=== PATIENT | male | born 1965 | race American Indian/Alaskan Native ===

== ENCOUNTER 2017-09-01 17:21 | Inpatient (IN) | payer OTHER ==
[2017-09-01 19:22] LABS: Hematocrit 32.3 % (35.5-45.6); Hemoglobin 10.9 gm/dl (11.8-15.2); Mean Corpuscular HGB Conc 34 % (32-34); Mean Corpuscular Hemoglobin 28 pg (28-32); Mean Corpuscular Volume 83 fl (84-94); Platelet Count 217 K/mm3 (140-440); Red Blood Count 3.91 M/mm3 (3.65-5.03); Red Cell Distribution Width 15.6 % (13.2-15.2)
[2017-09-01 19:40] LABS: BUN/Creatinine Ratio 12; Blood Urea Nitrogen 12 mg/dL (9-20); Calcium 9.5 mg/dL (8.4-10.2); Hemolysis Index 11
[2017-09-01 20:09] LABS: Basophils % (Manual) 0 % (0.0-1.8); Eosinophils % (Manual) 0 % (0.0-4.3); Total Cells Counted 100
[2017-09-01 20:10] LABS: Anisocytosis 1+
[2017-09-01 20:11] LABS: Poikilocytosis 1+
--- NOTE | 2017-09-01 20:24 | XRay Report ---
FINAL REPORT PROCEDURE: XR CHEST ROUTINE 2V TECHNIQUE: PA and lateral chest radiographs were obtained. CPT 18538 HISTORY: sob COMPARISON: No prior studies are available for comparison. FINDINGS: Heart: Normal. Mediastinum/Vessels: Normal. Lungs/Pleural space: Irregular areas of consolidation are noted involving left lingula and right middle lobe. Minimal degree bilateral pleural effusions are noted. Mild degree consolidation is also noted involving right upper lobe.. Bony thorax: No acute osseous abnormality. Other: IMPRESSION: Bilateral consolidations consistent with pneumonia with minimal pleural effusions..
[2017-09-01] MEDS ORDERED: TYLENOL PO ONE (20:35)
[2017-09-01] MEDS ORDERED: TYLENOL ONE (20:38)
[2017-09-01] MEDS ORDERED: XOPENEX IH ONE (23:26)
[2017-09-01] MEDS ORDERED: LEVAQUIN 750MG/150ML 750 MG/150 ML BAG IV ONE (23:26)
[2017-09-01] MEDS ORDERED: NACL 0.9% 1000 ML 1,000 ML IV ONE (23:26)
[2017-09-01] MEDS ORDERED: NACL 0.9% 1000 ML 1,000 ML ONE (23:26)
--- NOTE | 2017-09-01 23:29 | Emergency Department Report ---
HPI - General Chief Complaint: Dyspnea/Respdistress Time Seen by Provider: 09/01/17 23:15 - HPI HPI: 52-year-old male presents to the emergency department with complaint of shortness of breath and some midsternal right-sided chest discomfort with inspiration that started earlier this afternoon and radiates towards the back. The patient was just discharged from the [facility] a few days ago after spending some time therefore bilateral pneumonia. He is on Bactrim and just finished a course of antifungal medication for oral thrush. He denies any past medical history other than this pneumonia. He does not smoke or use illicit drugs. His physicians are through the [facility]. He denies any leg swelling, nausea, vomiting or fever. ED Past Medical Hx - Past Medical History Previous Medical History?: No - Surgical History Past Surgical History?: No - Social History Smoking Status: Never Smoker Substance Use Type: None ED Review of Systems ROS: Stated complaint: SOB/CHEST PAIN Other details as noted in HPI Comment: All other systems reviewed and negative Constitutional: denies: chills, fever Eyes: denies: eye pain, eye discharge, vision change ENT: denies: ear pain, throat pain Respiratory: cough, shortness of breath Cardiovascular: chest pain. denies: edema Gastrointestinal: denies: abdominal pain, nausea, diarrhea Genitourinary: denies: urgency, dysuria Musculoskeletal: back pain. denies: joint swelling, arthralgia Skin: denies: rash, lesions Neurological: denies: headache, weakness, paresthesias Physical Exam - Physical Exam Vital Signs: Vital Signs 09/01/17 09/01/17 09/01/17 17:28 19:54 20:35 Temperature 98.7 F 102.4 F H 102.4 F H Pulse Rate 109 H 146 H Respiratory 20 20 Rate Blood Pressure 130/82 116/74 O2 Sat by Pulse 100 96 Oximetry Physical Exam: GENERAL: The patient is well-developed well-nourished. HENT: Normocephalic. Atraumatic. Patient has moist mucous membranes. EYES: Extraocular motions are intact. Pupils equal reactive to light bilaterally. NECK: Supple. Trachea is midline. CHEST/LUNGS: Bilateral rhonchi. There is tachypnea with accessory muscle use. There is some conversational dyspnea. There is respiratory distress noted. HEART/CARDIOVASCULAR: Regular. There is moderate tachycardia. There is no murmur. ABDOMEN: Abdomen is soft, nontender. Patient has normal bowel sounds. There is no abdominal distention. SKIN: Skin is hot but dry. NEURO: The patient is awake, alert, and oriented. The patient is cooperative. The patient has no focal neurologic deficits. MUSCULOSKELETAL: There is no tenderness or deformity. There is no limitation range of motion. There is no evidence of acute injury. ED Course Vital Signs 09/01/17 09/01/17 09/01/17 17:28 19:54 20:35 Temperature 98.7 F 102.4 F H 102.4 F H Pulse Rate 109 H 146 H Respiratory 20 20 Rate Blood Pressure 130/82 116/74 O2 Sat by Pulse 100 96 Oximetry - Central Line Placement Right IJ Consent Obtained: verbal consent Time Out Performed: Yes Patient Placed on Monitor/Pulse Ox: Yes Prep: mask, gown, gloves Central Line Prep: Chlorhexidine scrub Ultrasound Used for Placement: Yes Central Line Lumen Inserted: triple Bloods Obtained for Lab: Yes Central Line Position: good blood return, all ports aspirated, flus, sutured in place with nyl Dressing Applied: Tegaderm, sterile gauze/tape Post Procedure X-Ray: tip of catheter in good p Patient Tolerated Procedure: well, no complications Complications: none Additional Comments: A first attempt was made in the right groin for the femoral vein. However the patient's anatomy appeared skewed and despite getting venous blood with cannulation it was difficult to feed the guidewire. At this point I decided to do an IJ CVC. - Intubation Time Out Performed: Yes Sedative: Etomidate Mg Given: 10 (10 mg of etomidate and 40 mg of ketamine given) Paralytic: Rocuronium Mg Given: 100 Laryngoscope: other (glydescope) Size: 3 ET Tube Size: 7.5 Tube Secured Depth (cm): 23 Tube Secured Location: lips Tube Placement Confirmation: visualized tube passing t, equal breath sounds bilat, confirmation by capnometr Patient Tolerated Procedure: well Intubation Complications: none ED Medical Decision Making - Lab Data Result diagrams: 09/01/17 19:00 09/01/17 19:00 - EKG Data -: EKG Interpreted by Me EKG shows normal: sinus rhythm, axis, intervals, QRS complexes, ST-T waves Rate: tachycardia (120 bpm) - EKG Data When compared to previous EKG there are: previous EKG unavailable Interpretation: normal EKG (sinus tachycardia at 120 bpm) - Radiology Data Radiology results: image reviewed interpreted by me: Chest x-ray shows bilateral infiltrates and/or airspace disease concerning for pneumonia. The second chest x-ray, done around 6 AM, shows appropriate placement of ET tube status post intubation. The right IJ CVC appears to be in the superior vena cava - Medical Decision Making Patient presents with shortness of breath and some pain with respiration. Patient appeared in respiratory distress. He was given breathing treatments and we started titrating up the supplemental oxygen. We started off with nasal cannula and when that was not sufficient went to a Venturi mask and then a nonrebreather. Eventually we attempted to use a BiPAP but the patient could not tolerate the BiPAP machine. I think part of the issue was anxiety but the patient had borderline hypotension and could not get any appropriate sedation or anxiolytics. At this point, the patient still remained tachypneic with some respiratory distress and moderate tachycardia. I was concerned that if the patient did not tolerate the BiPAP and we did not intubate that he would tire out. We placed dopamine on the patient to get his blood pressure up so he could be given some sedation and we could successfully do RSI. Once the blood pressure got up to a systolic of 90-100, he was given some low-dose ketamine and etomidate and then given rocuronium and the patient was intubated using the glydescope successfully. As soon as this was completed, a right IJ CVC was placed. Patient developed a fever while he was in the emergency department. He has a lactic acidosis. He has a chest x-ray that shows bilateral pneumonia. He appears to have sepsis and septic shock with the hypotension. He has received multiple boluses of IV fluid resuscitation. Blood culture sent and he was started on antibiotics. The patient will be admitted to the ICU and was accepted for admission by the hospitalist, Dr. Parker. The patient had an elevated d-dimer and is awaiting a CT angiography of the chest to rule out a pulmonary embolism as the source of his symptoms. The hospitalist service will follow-up with the results and can start anticoagulation if necessary. - Differential Diagnosis PNA, Sepsis, NM, CHF, PE Critical Care Time: Yes Critical care time in (mins) excluding proc time.: 40 Critical care attestation.: If time is entered above; I have spent that time in minutes in the direct care of this critically ill patient, excluding procedure time. Critical care time spent on this patient to his initial evaluation, multiple re-evaluations, discussion with the patient and family, ordering and interpretations of labs and imaging, disposition planning and discussion with the admitting hospitalist. This does not include the time spent doing the intubation and central line procedures. Critical Care Time: 40 minutes ED Disposition Clinical Impression: Septic shock, Lactic acidosis Sepsis Qualifiers: Sepsis type: sepsis due to unspecified organism Qualified Code(s): A41.9 - Sepsis, unspecified organism Bilateral pneumonia Qualifiers: Pneumonia type: due to unspecified organism Lung location: unspecified part of lung Qualified Code(s): J18.9 - Pneumonia, unspecified organism Hypotension Qualifiers: Hypotension type: unspecified hypotension type Qualified Code(s): I95.9 - Hypotension, unspecified Disposition: DC-09 OP ADMIT IP TO THIS HOSP Is pt being admited?: Yes Condition: Critical Instructions: Bacterial Pneumonia (ED) Referrals: PRIMARY CARE, [Primary Care Provider] - 3-5 Days Time of Disposition: 06:52
[2017-09-02] MEDS ORDERED: TORADOL IV ONE (00:12)
[2017-09-02] MEDS ORDERED: XOPENEX IH ONE ×3 (00:21→04:20)
[2017-09-02] MEDS ORDERED: NACL 0.9% 1000 ML 1,000 ML ONE (03:46)
[2017-09-02] MEDS ORDERED: NACL 0.9% 1000 ML 1,000 ML IV SCH ×2 (04:00→07:00)
[2017-09-02] MEDS ORDERED: NACL ONE (04:58)
[2017-09-02] MEDS ORDERED: ARTIFICIAL TEARS OPHTH OINT OU PRN (05:01)
[2017-09-02] MEDS ORDERED: VASELINE LIP THERAPY TP PRN (05:01)
[2017-09-02] MEDS ORDERED: KETALAR ONE (05:28)
[2017-09-02] MEDS ORDERED: VERSED IV ONE (05:28)
[2017-09-02] MEDS ORDERED: AMIDATE IV ONE (05:28)
[2017-09-02] MEDS ORDERED: ZEMURON IV ONE (05:28)
[2017-09-02] MEDS ORDERED: MIDAZOLAM 100 MG in NACL 0.9% 80 ML IV SCH (06:00)
--- NOTE | 2017-09-02 06:25 | History and Physical Report ---
History of Present Illness Date of examination: 09/02/17 Chief complaint: Shortness of breath with midsternal chest pain and cough History of present illness: 52-year-old male presents to the emergency department with complaint of shortness of breath and some midsternal right-sided chest discomfort with inspiration that started earlier this afternoon and radiates towards the back. The patient was just discharged from the [facility] a few days ago after spending some time therefore bilateral pneumonia. He is on Bactrim and just finished a course of antifungal medication for oral thrush. He denies any past medical history other than this pneumonia. He does not smoke or use illicit drugs. His physicians are through the [facility]. He denies any leg swelling, nausea, vomiting or fever. Past History Past Medical History: No medical history Past Surgical History: No surgical history Social history: no significant social history, full code. denies: smoking, alcohol abuse Family history: no significant family history Medications and Allergies Allergies Allergy/AdvReac Type Severity Reaction Status Date / Time No Known Allergies Allergy Unverified 09/01/17 17:28 Active Meds: Active Medications Hydrophilic Ointment (Vaseline Lip Therapy) 1 applic TP Q2HR PRN PRN Reason: Dry Lips Sodium Chloride (Nacl 0.9% 1000 Ml) 1,000 mls @ 250 mls/hr IV DIRECT STEPHANIE Fentanyl Citrate (Fentanyl Drip Premix) 2,000 mcg in 100 mls @ 2.903 mls/hr IV TITR STEPHANIE; 1 MCG/KG/HR PRN Reason: Protocol Midazolam HCl 100 mg/ Sodium (Chloride) 100 mls @ 2 mls/hr IV TITR STEPHANIE; 2 MG/HR PRN Reason: Protocol Multi-Ingred Cream/Lotion/Oil/Oint (Artificial Tears Ophth Oint) 1 applic OU Q4HR PRN PRN Reason: Dry Eye(s) Review of Systems ROS unobtainable: due to endotracheal tube Exam - Physical Exam Narrative exam: General: Patient is intubated HEENT: Head is atraumatic normocephalic,. Pupils equal round reactive to light and accommodation, orally intubated Neck: no JVD no thyromegaly or lymphadenopathy. Heart: Tachycardic but regular rhythm no murmurs or gallops. S1 and S2 normal. PMI not displaced. Lungs: Diffuse rhonchi. Bilateral rales no wheezing patient is on mechanical ventilation Abdomen: Soft, nondistended, and nontender. Normoactive bowel sounds. No hepatosplenomegaly. No abdominal masses or bruit appreciated. Extremities: No cyanosis/clubbing/ edema. Musculoskeletal: Normal range of movement all joints. No obvious deformity or tenderness to palpation. Normal muscle tone. Neurological: Limited exam due to patient being intubated and on chemical sedation Skin: Warm and dry no rashes or bruises. Psychiatric: Could not S patient is chemically sedated Vascular system: No lymphadenopathy. Distal pulses 2+ bilaterally. - Constitutional Vitals: Temp Pulse Resp BP Pulse Ox 102.4 F H 148 H 48 H 133/74 98 09/01/17 20:35 09/02/17 06:01 09/02/17 03:15 09/02/17 06:01 09/02/17 06:01 Results - Labs CBC & Chem 7: 09/01/17 19:00 09/01/17 19:00 Labs: Laboratory Last Values WBC 5.2 K/mm3 (4.5-11.0) 09/01/17 19:00 RBC 3.91 M/mm3 (3.65-5.03) 09/01/17 19:00 Hgb 10.9 gm/dl (11.8-15.2) L 09/01/17 19:00 Hct 32.3 % (35.5-45.6) L 09/01/17 19:00 MCV 83 fl (84-94) L 09/01/17 19:00 MCH 28 pg (28-32) 09/01/17 19:00 MCHC 34 % (32-34) 09/01/17 19:00 RDW 15.6 % (13.2-15.2) H 09/01/17 19:00 Plt Count 217 K/mm3 (140-440) 09/01/17 19:00 Add Manual Diff Complete 09/01/17 19:00 Total Counted 100 09/01/17 19:00 Seg Neuts % (Manual) 65.0 % (40.0-70.0) 09/01/17 19:00 Band Neutrophils % 0 % 09/01/17 19:00 Lymphocytes % (Manual) 34.0 % (13.4-35.0) 09/01/17 19:00 Reactive Lymphs % (Man) 0 % 09/01/17 19:00 Monocytes % (Manual) 1.0 % (0.0-7.3) 09/01/17 19:00 Eosinophils % (Manual) 0 % (0.0-4.3) 09/01/17 19:00 Basophils % (Manual) 0 % (0.0-1.8) 09/01/17 19:00 Metamyelocytes % 0 % 09/01/17 19:00 Myelocytes % 0 % 09/01/17 19:00 Promyelocytes % 0 % 09/01/17 19:00 Blast Cells % 0 % 09/01/17 19:00 Nucleated RBC % Not Reportable 09/01/17 19:00 Seg Neutrophils # Man 3.4 K/mm3 (1.8-7.7) 09/01/17 19:00 Band Neutrophils # 0.0 K/mm3 09/01/17 19:00 Lymphocytes # (Manual) 1.8 K/mm3 (1.2-5.4) 09/01/17 19:00 Abs React Lymphs (Man) 0.0 K/mm3 09/01/17 19:00 Monocytes # (Manual) 0.1 K/mm3 (0.0-0.8) 09/01/17 19:00 Eosinophils # (Manual) 0.0 K/mm3 (0.0-0.4) 09/01/17 19:00 Basophils # (Manual) 0.0 K/mm3 (0.0-0.1) 09/01/17 19:00 Metamyelocytes # 0.0 K/mm3 09/01/17 19:00 Myelocytes # 0.0 K/mm3 09/01/17 19:00 Promyelocytes # 0.0 K/mm3 09/01/17 19:00 Blast Cells # 0.0 K/mm3 09/01/17 19:00 WBC Morphology Not Reportable 09/01/17 19:00 Hypersegmented Neuts Not Reportable 09/01/17 19:00 Hyposegmented Neuts Not Reportable 09/01/17 19:00 Hypogranular Neuts Not Reportable 09/01/17 19:00 Smudge Cells Not Reportable 09/01/17 19:00 Toxic Granulation Not Reportable 09/01/17 19:00 Toxic Vacuolation Not Reportable 09/01/17 19:00 Dohle Bodies Not Reportable 09/01/17 19:00 Pelger-Huet Anomaly Not Reportable 09/01/17 19:00 Efren Rods Not Reportable 09/01/17 19:00 Platelet Estimate Appears normal 09/01/17 19:00 Clumped Platelets Not Reportable 09/01/17 19:00 Plt Clumps, EDTA Not Reportable 09/01/17 19:00 Large Platelets Not Reportable 09/01/17 19:00 Giant Platelets Not Reportable 09/01/17 19:00 Platelet Satelliting Not Reportable 09/01/17 19:00 Plt Morphology Comment Not Reportable 09/01/17 19:00 RBC Morphology Not Reportable 09/01/17 19:00 Dimorphic RBCs Not Reportable 09/01/17 19:00 Polychromasia Not Reportable 09/01/17 19:00 Hypochromasia Not Reportable 09/01/17 19:00 Poikilocytosis 1+ 09/01/17 19:00 Anisocytosis 1+ 09/01/17 19:00 Microcytosis Not Reportable 09/01/17 19:00 Macrocytosis Not Reportable 09/01/17 19:00 Spherocytes Not Reportable 09/01/17 19:00 Pappenheimer Bodies Not Reportable 09/01/17 19:00 Sickle Cells Not Reportable 09/01/17 19:00 Target Cells Not Reportable 09/01/17 19:00 Tear Drop Cells Not Reportable 09/01/17 19:00 Ovalocytes Not Reportable 09/01/17 19:00 Helmet Cells Not Reportable 09/01/17 19:00 [place] Bodies Not Reportable 09/01/17 19:00 [place] Rings Not Reportable 09/01/17 19:00 [place] Cells Not Reportable 09/01/17 19:00 Bite Cells Not Reportable 09/01/17 19:00 Crenated Cell Not Reportable 09/01/17 19:00 Elliptocytes Not Reportable 09/01/17 19:00 Acanthocytes (Spur) Not Reportable 09/01/17 19:00 Rouleaux Not Reportable 09/01/17 19:00 Hemoglobin C Crystals Not Reportable 09/01/17 19:00 Schistocytes Not Reportable 09/01/17 19:00 Malaria parasites Not Reportable 09/01/17 19:00 Scott Bodies Not Reportable 09/01/17 19:00 Hem Pathologist Commnt No 09/01/17 19:00 D-Dimer 976.43 ng/mlDDU (0-234) H 09/01/17 23:27 Sodium 133 mmol/L (137-145) L 09/01/17 19:00 Potassium 4.7 mmol/L (3.6-5.0) 09/01/17 19:00 Chloride 96.4 mmol/L (98-107) L 09/01/17 19:00 Carbon Dioxide 24 mmol/L (22-30) 09/01/17 19:00 Anion Gap 17 mmol/L 09/01/17 19:00 BUN 12 mg/dL (9-20) 09/01/17 19:00 Creatinine 1.0 mg/dL (0.8-1.5) 09/01/17 19:00 Estimated GFR > 60 ml/min 09/01/17 19:00 BUN/Creatinine Ratio 12 % 09/01/17 19:00 Glucose 113 mg/dL (75-100) H 09/01/17 19:00 Lactic Acid 4.10 mmol/L (0.7-2.0) H* 09/02/17 01:25 Calcium 9.5 mg/dL (8.4-10.2) 09/01/17 19:00 Troponin T < 0.010 ng/mL (0.00-0.029) 09/01/17 23:27 NT-Pro-B Natriuret Pep 315.2 pg/mL (0-900) 09/01/17 23:27 - Imaging and Cardiology Imaging and Cardiology: EKG shows normal: sinus rhythm, axis, intervals, QRS complexes, ST-T waves Rate: tachycardia (120 bpm) Chest x-ray showing bilateral consolidations consistent with pneumonia Assessment and Plan Assessment and plan: Assessment and plan - * Acute hypoxemic respiratory failure * Septic shock responsive to fluidsLikely due to underlying pneumonia currently not on any pressors * Lactic acidosis due to underlying sepsis * Anemia * Hyponatremia Plan - Continue on mechanical ventilation [employer] Presser consult in a.m. Aggressive bronchodilators Patient was recently discharged from a 6 day hospital stay at the [facility]. This is unresolving pneumonia plus healthcare associated pneumonia. Spectrum antibiotics with vancomycin and Zosyn and azithromycin Symptomatic supportive care with IV fluids and sedation for mechanical ventilation Follow blood and respiratory cultures sputum cultures check urine Legionella antigen Monitor CBC and electrolytes Replace electrolytes when necessary per protocol next find DVT GI prophylaxis monitor and follow the patient closely VTE prophylaxis?: Chemical, Mechanical
[2017-09-02] MEDS ORDERED: DULCOLAX PR PRN (06:26)
[2017-09-02] MEDS ORDERED: NARCAN 0.4 MG/1 ML IV PRN (06:26)
[2017-09-02] MEDS ORDERED: VANCOMYCIN VIAL IV ONE (06:26)
[2017-09-02] MEDS ORDERED: D50W (25GM) Syringe IV PRN (06:26)
[2017-09-02] MEDS ORDERED: ALUM-MAG HYDROX-SIMETH 200-200-20MG/5ML PO PRN (06:26)
[2017-09-02] MEDS: fentaNYL DRIP Premix 2,000 MCG/100 ML BAG IV SCH ×2 (06:34→17:28)
--- NOTE | 2017-09-02 06:36 | XRay Report ---
FINAL REPORT EXAM: XR CHEST 1V AP HISTORY: Post ETT placement TECHNIQUE: A portable view of the chest was obtained and compared to the study of 09/01/2017. FINDINGS: The lungs appear more congested than on the previous study. There is bibasilar airspace disease and atelectasis with bilateral effusions. The heart is mildly enlarged. The patient is not intubated with the tip of the ET tube 4 cm above the mitchell. There is now an NG tube coursing well into the stomach. There is a central line placed with tip in the distal superior vena cava. There is no evidence of pneumothorax. The bones and soft tissues otherwise appear well maintained. IMPRESSION: Worsening pulmonary vascular congestion with bilateral airspace disease in the lung bases with effusions. Satisfactory intubation and placement NG tube. The right transjugular venous line also appears in good position.
[2017-09-02] MEDS ORDERED: INTROPIN DRIP 800 MG/D5W 250 ML 800 MG/250 ML BAG IV ONE (06:42)
[2017-09-02] MEDS ORDERED: VANCOMYCIN 1,250 MG in NACL 0.9% 250ML 250 ML IV ONE (07:00)
[2017-09-02] MEDS: LEVOPHED DRIP 4 MG/NS 250 ML 4 MG/250 ML BAG IV SCH ×4 (07:00→22:02)
[2017-09-02] MEDS ORDERED: VANCOMYCIN PHARMACY TO DOSE IV SCH (07:00)
[2017-09-02 07:44] LABS: Hematocrit 28.9 % (35.5-45.6); Hemoglobin 9.6 gm/dl (11.8-15.2); Mean Corpuscular HGB Conc 33 % (32-34); Mean Corpuscular Hemoglobin 28 pg (28-32); Mean Corpuscular Volume 85 fl (84-94); Platelet Count 154 K/mm3 (140-440); Red Blood Count 3.41 M/mm3 (3.65-5.03)
[2017-09-02] MEDS ORDERED: DUONEB *Not for PRN Use IH ONE ×2 (07:47→16:56)
[2017-09-02 07:57] LABS: Alanine Aminotransferase 25 units/L (7-56); BUN/Creatinine Ratio 17; Blood Urea Nitrogen 17 mg/dL (9-20); Calcium 8.7 mg/dL (8.4-10.2); Hemolysis Index 14
[2017-09-02 08:02] LABS: INR 1.46 (0.87-1.13)
[2017-09-02 08:03] LABS: Partial Thromboplastin Time 35.4 Sec. (24.2-36.6)
[2017-09-02 08:07] LABS: Eosinophils % (Auto) 0.3 % (0.0-4.3); Monocytes # (Auto) 0.4 K/mm3 (0.0-0.8); Monocytes % (Auto) 12.6 % (0.0-7.3)
[2017-09-02] MEDS: DUONEB *Not for PRN Use IH SCH ×5 (08:59→20:25)
--- NOTE | 2017-09-02 09:28 | Event Note ---
Date: 09/02/17
--- NOTE | 2017-09-02 09:35 | Progress Note ---
Assessment and Plan * * Septic shock due to underlying pneumonia currently on two pressors * Acute hypoxemic respiratory failure intubated 09/01/17 * Lactic acidosis due to underlying sepsis * Anemia * Hyponatremia Plan - Continue on mechanical ventilation [employer] consult Aggressive bronchodilators Patient was recently discharged from a 6 day hospital stay at the [facility]. This is unresolving pneumonia plus healthcare associated pneumonia. Spectrum antibiotics with vancomycin and Zosyn and azithromycin Symptomatic supportive care with IV fluids and sedation for mechanical ventilation Follow blood and respiratory cultures sputum cultures check urine Legionella antigen Monitor CBC and electrolytes Monitor Electrolytes DVT GI prophylaxis with Lovenox and Pepcid monitor and follow the patient closely VTE prophylaxis?: Chemical, Mechanical Subjective Date of service: 09/02/17 Principal diagnosis: Septic shock, acute hypoxemic respiratory failure, [place] Interval history: Remain intubated. Still hypotensive. Maxed out on two pressors. Discussed with pt's nurse Objective - Constitutional Vitals: Vital Signs - 12hr 09/01/17 09/01/17 09/01/17 23:12 23:21 23:30 Temperature Pulse Rate 131 H 132 H 130 H Pulse Rate [ Anterior Bilateral Throughout] Respiratory 43 H 52 H 62 H Rate Respiratory Rate [Anterior Bilateral Throughout] Blood Pressure 113/73 O2 Sat by Pulse 88 95 94 Oximetry 09/01/17 09/01/17 09/02/17 23:45 23:58 00:00 Temperature Pulse Rate 123 H 120 H 122 H Pulse Rate [ Anterior Bilateral Throughout] Respiratory 43 H 46 H 39 H Rate Respiratory Rate [Anterior Bilateral Throughout] Blood Pressure 98/63 113/73 95/62 O2 Sat by Pulse 98 98 98 Oximetry 09/02/17 09/02/17 09/02/17 00:15 00:17 00:30 Temperature Pulse Rate 118 H 119 H 122 H Pulse Rate [ Anterior Bilateral Throughout] Respiratory 38 H 50 H 34 H Rate Respiratory Rate [Anterior Bilateral Throughout] Blood Pressure 94/59 94/59 95/66 O2 Sat by Pulse 98 97 98 Oximetry 09/02/17 09/02/17 09/02/17 00:45 00:49 01:00 Temperature Pulse Rate 119 H 122 H Pulse Rate [ Anterior Bilateral Throughout] Respiratory 40 H 34 H 46 H Rate Respiratory Rate [Anterior Bilateral Throughout] Blood Pressure 91/59 84/55 O2 Sat by Pulse 97 98 96 Oximetry 09/02/17 09/02/17 09/02/17 01:15 01:30 01:45 Temperature Pulse Rate 120 H 124 H 121 H Pulse Rate [ Anterior Bilateral Throughout] Respiratory 38 H 42 H 30 H Rate Respiratory Rate [Anterior Bilateral Throughout] Blood Pressure 78/49 81/52 79/52 O2 Sat by Pulse 98 99 Oximetry 09/02/17 09/02/17 09/02/17 02:00 02:15 02:30 Temperature Pulse Rate 122 H 116 H 118 H Pulse Rate [ Anterior Bilateral Throughout] Respiratory 40 H 29 H 33 H Rate Respiratory Rate [Anterior Bilateral Throughout] Blood Pressure 79/52 85/50 85/57 O2 Sat by Pulse 99 100 100 Oximetry 09/02/17 09/02/17 09/02/17 02:45 03:00 03:15 Temperature Pulse Rate 120 H 121 H 141 H Pulse Rate [ Anterior Bilateral Throughout] Respiratory 29 H 36 H 48 H Rate Respiratory Rate [Anterior Bilateral Throughout] Blood Pressure 92/55 88/53 105/57 O2 Sat by Pulse 98 98 82 L Oximetry 09/02/17 09/02/17 09/02/17 03:30 03:45 04:00 Temperature Pulse Rate 131 H 137 H 136 H Pulse Rate [ Anterior Bilateral Throughout] Respiratory 43 H 46 H 35 H Rate Respiratory Rate [Anterior Bilateral Throughout] Blood Pressure 99/51 89/45 84/51 O2 Sat by Pulse 95 94 95 Oximetry 09/02/17 09/02/17 09/02/17 04:15 04:30 04:45 Temperature Pulse Rate 143 H 143 H 142 H Pulse Rate [ Anterior Bilateral Throughout] Respiratory 38 H 24 45 H Rate Respiratory Rate [Anterior Bilateral Throughout] Blood Pressure 91/58 90/55 91/54 O2 Sat by Pulse 99 98 97 Oximetry 09/02/17 09/02/17 09/02/17 05:00 05:15 05:31 Temperature Pulse Rate 136 H 124 H 162 H Pulse Rate [ Anterior Bilateral Throughout] Respiratory 39 H 34 H 21 Rate Respiratory Rate [Anterior Bilateral Throughout] Blood Pressure 81/46 78/33 111/56 O2 Sat by Pulse 100 94 91 Oximetry 09/02/17 09/02/17 09/02/17 05:45 06:01 06:15 Temperature Pulse Rate 153 H 150 H 146 H Pulse Rate [ Anterior Bilateral Throughout] Respiratory 16 16 16 Rate Respiratory Rate [Anterior Bilateral Throughout] Blood Pressure 133/71 133/76 131/72 O2 Sat by Pulse 97 96 97 Oximetry 09/02/17 09/02/17 09/02/17 06:31 06:45 07:01 Temperature Pulse Rate 144 H 131 H 138 H Pulse Rate [ Anterior Bilateral Throughout] Respiratory 16 16 16 Rate Respiratory Rate [Anterior Bilateral Throughout] Blood Pressure 125/71 92/54 73/45 O2 Sat by Pulse 95 95 Oximetry 09/02/17 09/02/17 09/02/17 07:15 07:30 07:45 Temperature Pulse Rate 136 H 134 H 129 H Pulse Rate [ Anterior Bilateral Throughout] Respiratory 16 16 16 Rate Respiratory Rate [Anterior Bilateral Throughout] Blood Pressure 74/47 79/47 80/44 O2 Sat by Pulse 95 Oximetry 09/02/17 09/02/17 09/02/17 08:01 08:15 08:26 Temperature 98.1 F Pulse Rate 122 H 117 H Pulse Rate [ Anterior Bilateral Throughout] Respiratory 13 13 Rate Respiratory Rate [Anterior Bilateral Throughout] Blood Pressure 74/49 77/49 O2 Sat by Pulse Oximetry 09/02/17 09/02/17 09/02/17 08:54 09:00 09:28 Temperature Pulse Rate 117 H Pulse Rate [ 113 H 116 H Anterior Bilateral Throughout] Respiratory Rate Respiratory 19 16 Rate [Anterior Bilateral Throughout] Blood Pressure 75/51 O2 Sat by Pulse 92 Oximetry General appearance: Present: no acute distress, well-nourished, other (intubated ) - EENT Eyes: PERRL, EOM intact - Neck Neck: supple, normal ROM - Respiratory Respiratory effort: normal Respiratory: bilateral: diminished - Cardiovascular Rhythm: regular Heart Sounds: Present: S1 & S2. Absent: gallop, rub Extremities: pulses intact, No edema, normal color, Full ROM - Gastrointestinal General gastrointestinal: Present: soft, non-tender, non-distended, normal bowel sounds - Integumentary Integumentary: clear, warm, dry - Musculoskeletal Musculoskeletal: other (intubated) - Neurologic Neurologic: other (intubated an sedated) - Psychiatric Psychiatric: other (intubated ansedated) - Labs CBC & Chem 7: 09/02/17 07:36 09/02/17 07:36 Labs: Abnormal lab results 09/01/17 09/01/17 09/01/17 Range/Units 19:00 19:00 23:27 WBC (4.5-11.0) K/mm3 RBC (3.65-5.03) M/mm3 Hgb 10.9 L (11.8-15.2) gm/dl Hct 32.3 L (35.5-45.6) % MCV 83 L (84-94) fl RDW 15.6 H (13.2-15.2) % [place] % (Auto) (0.0-7.3) % Seg Neutrophils % (40.0-70.0) % PT (12.2-14.9) Sec. INR (0.87-1.13) D-Dimer 976.43 H (0-234) ng/mlDDU POC ABG pH (7.35-7.45) POC ABG pO2 (80-105) Sodium 133 L (137-145) mmol/L Chloride 96.4 L (98-107) mmol/L Glucose 113 H (75-100) mg/dL Lactic Acid (0.7-2.0) mmol/L Magnesium (1.7-2.3) mg/dL Total Protein (6.3-8.2) g/dL Albumin (3.9-5) g/dL 09/01/17 09/02/17 09/02/17 Range/Units 23:27 01:25 07:36 WBC 2.2 L (4.5-11.0) K/mm3 RBC 3.41 L (3.65-5.03) M/mm3 Hgb 9.6 L (11.8-15.2) gm/dl Hct 28.9 L (35.5-45.6) % MCV (84-94) fl RDW 16.0 H (13.2-15.2) % [place] % (Auto) 12.6 H (0.0-7.3) % Seg Neutrophils % 70.4 H (40.0-70.0) % PT (12.2-14.9) Sec. INR (0.87-1.13) D-Dimer (0-234) ng/mlDDU POC ABG pH (7.35-7.45) POC ABG pO2 (80-105) Sodium (137-145) mmol/L Chloride (98-107) mmol/L Glucose (75-100) mg/dL Lactic Acid 3.30 H* 4.10 H* (0.7-2.0) mmol/L Magnesium (1.7-2.3) mg/dL Total Protein (6.3-8.2) g/dL Albumin (3.9-5) g/dL 09/02/17 09/02/17 09/02/17 Range/Units 07:36 07:36 07:36 WBC (4.5-11.0) K/mm3 RBC (3.65-5.03) M/mm3 Hgb (11.8-15.2) gm/dl Hct (35.5-45.6) % MCV (84-94) fl RDW (13.2-15.2) % [place] % (Auto) (0.0-7.3) % Seg Neutrophils % (40.0-70.0) % PT 18.6 H (12.2-14.9) Sec. INR 1.46 H (0.87-1.13) D-Dimer (0-234) ng/mlDDU POC ABG pH (7.35-7.45) POC ABG pO2 (80-105) Sodium 136 L (137-145) mmol/L Chloride (98-107) mmol/L Glucose (75-100) mg/dL Lactic Acid 3.80 H* (0.7-2.0) mmol/L Magnesium 1.20 L (1.7-2.3) mg/dL Total Protein 9.1 H (6.3-8.2) g/dL Albumin 2.0 L (3.9-5) g/dL 09/02/17 Range/Units 08:49 WBC (4.5-11.0) K/mm3 RBC (3.65-5.03) M/mm3 Hgb (11.8-15.2) gm/dl Hct (35.5-45.6) % MCV (84-94) fl RDW (13.2-15.2) % [place] % (Auto) (0.0-7.3) % Seg Neutrophils % (40.0-70.0) % PT (12.2-14.9) Sec. INR (0.87-1.13) D-Dimer (0-234) ng/mlDDU POC ABG pH 7.313 L (7.35-7.45) POC ABG pO2 116 H (80-105) Sodium (137-145) mmol/L Chloride (98-107) mmol/L Glucose (75-100) mg/dL Lactic Acid (0.7-2.0) mmol/L Magnesium (1.7-2.3) mg/dL Total Protein (6.3-8.2) g/dL Albumin (3.9-5) g/dL - Imaging and cardiology Chest x-ray: report reviewed
[2017-09-02] MEDS ORDERED: ZITHROMAX 500 MG in NACL 0.9% 250ML 250 ML IV SCH (10:00)
[2017-09-02 10:09] LABS: Band Neutrophils # (Manual) 0.3 K/mm3; Basophils % (Manual) 0 % (0.0-1.8); Eosinophils % (Manual) 0 % (0.0-4.3); Total Cells Counted 100
[2017-09-02 10:11] LABS: Platelet Estimate Consistent w Auto; RBC Morphology Normal
[2017-09-02] MEDS: Vasostrict 20 UNIT in NACL 0.9% 100 ML IV SCH ×2 (10:28→18:40)
[2017-09-02] MEDS ORDERED: ZOSYN/NS 4.5GM/100ML 4.5 GM/100 ML VIAL IV SCH (12:00)
[2017-09-02] MEDS: INTROPIN DRIP 800 MG/D5W 250 ML 800 MG/250 ML BAG IV SCH (12:01)
[2017-09-02] MEDS: LOVENOX SUB-Q SCH (12:12)
[2017-09-02] MEDS: PEPCID IV SCH ×2 (12:12→22:03)
--- NOTE | 2017-09-02 12:29 | Consultation ---
History of Present Illness Consult date: 09/02/17 Requesting physician: THA ARCINIEGA Reason for consult: hypoxemia, abnormal CXR/CT History of present illness: 52 y/o male, per chart, recently discharge from [place] for pneumonia, admitted with acute respiratory failure. Awake and alert but sedated on vent. No family at bedside. Past History Past Medical History: No medical history Past Surgical History: No surgical history Social history: no significant social history, full code. denies: smoking, alcohol abuse Family history: no significant family history Medications and Allergies Allergies Allergy/AdvReac Type Severity Reaction Status Date / Time No Known Allergies Allergy Unverified 09/01/17 17:28 Active Meds: Active Medications Al Hydrox/Mg Hydrox/Simethicone (Alum-Mag Hydrox-Simeth 209-596-99xr/5ml) 30 ml PO Q4H PRN PRN Reason: Indigestion Albuterol (Proventil) 2.5 mg IH Q3HRT PRN PRN Reason: Shortness Of Breath Albuterol/Ipratropium (Duoneb *Not For Prn Use*) 1 ampul IH Q4HRT [facility] Last Admin: 09/02/17 08:59 Dose: 1 ampul Bisacodyl (Dulcolax) 10 mg CO QDAY PRN PRN Reason: constipation unrelieved by MOM Dextrose (D50w (25gm) Syringe) 50 ml IV PRN PRN PRN Reason: Hypoglycemia Enoxaparin Sodium (Lovenox) 40 mg SUB-Q QDAY [facility] Last Admin: 09/02/17 12:12 Dose: 40 mg Famotidine (Pepcid) 20 mg IV BID [facility] Last Admin: 09/02/17 12:12 Dose: 20 mg Hydrophilic Ointment (Vaseline Lip Therapy) 1 applic TP Q2HR PRN PRN Reason: Dry Lips Fentanyl Citrate (Fentanyl Drip Premix) 2,000 mcg in 100 mls @ 2.903 mls/hr IV TITR STEPHANIE; 1 MCG/KG/HR PRN Reason: Protocol Last Admin: 09/02/17 06:34 Dose: 4 mcg/kg/hr, 11.612 mls/hr Azithromycin 500 mg/ Sodium (Chloride) 250 mls @ 250 mls/hr IV Q24HR [facility] Sodium Chloride (Nacl 0.9% 1000 Ml) 1,000 mls @ 150 mls/hr IV DIRECT STEPHANIE Piperacillin Sod/Tazobactam Sod (Zosyn/Ns 4.5gm/100ml) 4.5 gm in 100 mls @ 200 mls/hr IV Q6HR STEPHANIE PRN Reason: Protocol Last Admin: 09/02/17 11:45 Dose: 200 mls/hr Vancomycin HCl 750 mg/ Sodium (Chloride) 257.5 mls @ 166.667 mls/hr IV Q12H STEPHANIE Norepinephrine (Levophed Drip 4 Mg/Ns 250 Ml) 4 mg in 250 mls @ 7.5 mls/hr IV TITR STEPHANIE; 2 MCG/MIN PRN Reason: Protocol Vasopressin 20 unit/ Sodium (Chloride) 101 mls @ 9.09 mls/hr IV TITR STEPHANIE; 0.03 UNITS/MIN PRN Reason: Protocol Last Admin: 09/02/17 10:28 Dose: 0.03 units/min, 9.09 mls/hr Dopamine HCl/Dextrose (Intropin Drip 800 Mg/D5w 250 Ml) 800 mg in 250 mls @ 2.177 mls/hr IV TITR STEPHANIE; 2 MCG/KG/MIN PRN Reason: Protocol Insulin Aspart (Novolog) 0 units SUB-Q Q6HR STEPHANIE PRN Reason: Protocol Multi-Ingred Cream/Lotion/Oil/Oint (Artificial Tears Ophth Oint) 1 applic OU Q4HR PRN PRN Reason: Dry Eye(s) Naloxone HCl (Narcan 0.4 Mg/1 Ml) 0.1 mg IV Q2MIN PRN PRN Reason: Res Rate </= 8 or 02 SAT < 92% Vancomycin HCl (Vancomycin Pharmacy To Dose) 1 each IV PKCONSULT STEPHANIE PRN Reason: Protocol Review of Systems ROS unobtainable: due to endotracheal tube All systems: negative Physical Examination Vital signs: Vital Signs Temp Pulse Resp BP Pulse Ox 98.7 F 109 H 20 130/82 100 09/01/17 17:28 09/01/17 17:28 09/01/17 17:28 09/01/17 17:28 09/01/17 17:28 General appearance: alert, appears uncomfortable Eyes: non-icteric ENT: other (orally intubated and sedated) Neck: supple Effort: mildly labored Ascultation: Bilateral: diminished breath sounds, rales Percussion: Bilateral: not dull Cardiovascular: regular rate and rhythm (sinus tach) Gastrointestinal: hypoactive bowel sounds, soft, non-tender Extremities: no edema Results - Laboratory Findings CBC and BMP: 09/03/17 05:15 09/03/17 05:15 ABG POC ABG pH 7.313 (7.35-7.45) L 09/02/17 08:49 POC ABG pCO2 40.7 (35-45) 09/02/17 08:49 POC ABG pO2 116 (80-105) H 09/02/17 08:49 POC ABG HCO3 20.7 09/02/17 08:49 POC ABG Total CO2 22 09/02/17 08:49 POC ABG O2 Sat 98 09/02/17 08:49 PT/INR, D-dimer PT 18.6 Sec. (12.2-14.9) H 09/02/17 07:36 INR 1.46 (0.87-1.13) H 09/02/17 07:36 D-Dimer 976.43 ng/mlDDU (0-234) H 09/01/17 23:27 Abnormal lab findings: Abnormal Labs 09/01/17 09/01/17 09/01/17 19:00 19:00 23:27 WBC RBC Hgb 10.9 L Hct 32.3 L MCV 83 L RDW 15.6 H [place] % (Auto) Seg Neutrophils % Seg Neutrophils # Man Lymphocytes # (Manual) PT INR D-Dimer 976.43 H POC ABG pH POC ABG pO2 Sodium 133 L Chloride 96.4 L Glucose 113 H Lactic Acid Magnesium Total Protein Albumin 09/01/17 09/02/17 09/02/17 23:27 01:25 07:36 WBC 2.2 L RBC 3.41 L Hgb 9.6 L Hct 28.9 L MCV RDW 16.0 H [place] % (Auto) 12.6 H Seg Neutrophils % 70.4 H Seg Neutrophils # Man 1.1 L Lymphocytes # (Manual) 0.6 L PT INR D-Dimer POC ABG pH POC ABG pO2 Sodium Chloride Glucose Lactic Acid 3.30 H* 4.10 H* Magnesium Total Protein Albumin 09/02/17 09/02/17 09/02/17 07:36 07:36 07:36 WBC RBC Hgb Hct MCV RDW [place] % (Auto) Seg Neutrophils % Seg Neutrophils # Man Lymphocytes # (Manual) PT 18.6 H INR 1.46 H D-Dimer POC ABG pH POC ABG pO2 Sodium 136 L Chloride Glucose Lactic Acid 3.80 H* Magnesium 1.20 L Total Protein 9.1 H Albumin 2.0 L 09/02/17 09/02/17 08:49 09:40 WBC RBC Hgb Hct MCV RDW [place] % (Auto) Seg Neutrophils % Seg Neutrophils # Man Lymphocytes # (Manual) PT INR D-Dimer POC ABG pH 7.313 L POC ABG pO2 116 H Sodium Chloride Glucose Lactic Acid 3.60 H* Magnesium Total Protein Albumin - Diagnostic Findings Chest x-ray: image reviewed Assessment and Plan 52 y/o male, vet, admitted with acute respiratory failure thought secondary to pneumonia with lactic acidosis 1. 1. Will persue aggressive fluid resuscitation 2. Monitor O2 sats and respirations 3. Wean vasopressor therapy for MAPS >65 4. Serial lactic acids 5. Agree with ID consult. CCT 31 minutes.
[2017-09-02] MEDS ORDERED: SODIUM BICARBONATE 150 MEQ in D5W 1,000 ML IV SCH (13:00)
--- NOTE | 2017-09-02 15:49 | Consultation ---
History of Present Illness - Reason for Consult Consult date: 09/02/17 septic shock Requesting physician: THA ARCINIEGA - History of Present Illness 52 years old male, with non known medical history, admitted on 09/01/2017 due to severe shortness of breath and midsternal right-sided chest pain. Chest pain increased with inspiration. Patient is unable to provide a history. Patient is currently intubated and sedated on the ventilator. Per review of chart, patient was recently discharged from [facility] where he was treated for bilateral pneumonia. Seems like he was taking Bactrim and an antifungal medicine for oral thrush. It is unknown if patient has HIV infection. Medical records from [place] are not available. In the emergency room, initial temperature was 102.4, heart rate 109, respiration 20, O2 sat 100, blood pressure 95/66. Initial white count 5.2. Hemoglobin 10.9. Platelets 217. D-dimer 907 D6. Creatinine 1. Sodium 133. Lactic acid 3.3. Chest x-ray showed bilateral consolidations with minimal pleural effusions. Patient became altered and hypoxemic despite Venturi mask and CPAP. He was eventually intubated and sedated. Patient is currently on 3 pressors. Microbiology: Blood cultures: 09/01 GNR x 4 bottles Urine cultures: Respiratory cultures: TA 09/01 ngtd Wound cultures: Current Antimicrobials: Zosyn Azithro Vanco Previous Antimicrobials: Past History Past Medical History: No medical history (Unknown past medical history) Past Surgical History: No surgical history Social history: no significant social history, full code. denies: smoking, alcohol abuse Family history: no significant family history Medications and Allergies Allergies Allergy/AdvReac Type Severity Reaction Status Date / Time No Known Allergies Allergy Unverified 09/01/17 17:28 Active Meds: Active Medications Al Hydrox/Mg Hydrox/Simethicone (Alum-Mag Hydrox-Simeth 799-289-29nd/5ml) 30 ml PO Q4H PRN PRN Reason: Indigestion Albuterol (Proventil) 2.5 mg IH Q3HRT PRN PRN Reason: Shortness Of Breath Albuterol/Ipratropium (Duoneb *Not For Prn Use*) 1 ampul IH Q4HRT STEPHANIE Last Admin: 09/02/17 12:38 Dose: 1 ampul Bisacodyl (Dulcolax) 10 mg [place] QDAY PRN PRN Reason: constipation unrelieved by MOM Dextrose (D50w (25gm) Syringe) 50 ml IV PRN PRN PRN Reason: Hypoglycemia Enoxaparin Sodium (Lovenox) 40 mg SUB-Q QDAY STEPHANIE Last Admin: 09/02/17 12:12 Dose: 40 mg Famotidine (Pepcid) 20 mg IV BID STEPHANIE Last Admin: 09/02/17 12:12 Dose: 20 mg Hydrophilic Ointment (Vaseline Lip Therapy) 1 applic TP Q2HR PRN PRN Reason: Dry Lips Last Admin: 09/02/17 10:15 Dose: 1 applic Fentanyl Citrate (Fentanyl Drip Premix) 2,000 mcg in 100 mls @ 2.903 mls/hr IV TITR STEPHANIE; 1 MCG/KG/HR PRN Reason: Protocol Last Admin: 09/02/17 06:34 Dose: 4 mcg/kg/hr, 11.612 mls/hr Sodium Chloride (Nacl 0.9% 1000 Ml) 1,000 mls @ 150 mls/hr IV DIRECT STEPHANIE Vancomycin HCl 750 mg/ Sodium (Chloride) 257.5 mls @ 166.667 mls/hr IV Q12H STEPHANIE Norepinephrine (Levophed Drip 4 Mg/Ns 250 Ml) 4 mg in 250 mls @ 7.5 mls/hr IV TITR STEPHANIE; 2 MCG/MIN PRN Reason: Protocol Last Titration: 09/02/17 15:03 Dose: Infused Vasopressin 20 unit/ Sodium (Chloride) 101 mls @ 9.09 mls/hr IV TITR STEPHANIE; 0.03 UNITS/MIN PRN Reason: Protocol Last Admin: 09/02/17 10:28 Dose: 0.03 units/min, 9.09 mls/hr Dopamine HCl/Dextrose (Intropin Drip 800 Mg/D5w 250 Ml) 800 mg in 250 mls @ 2.177 mls/hr IV TITR STEPHANIE; 2 MCG/KG/MIN PRN Reason: Protocol Last Admin: 09/02/17 12:01 Dose: 2 mcg/kg/min, 2.177 mls/hr Meropenem 1,000 mg/ Sodium (Chloride) 100 mls @ 100 mls/hr IV Q8H STEPHANIE PRN Reason: Protocol Insulin Aspart (Novolog) 0 units SUB-Q Q6HR STEPHANIE PRN Reason: Protocol Multi-Ingred Cream/Lotion/Oil/Oint (Artificial Tears Ophth Oint) 1 applic OU Q4HR PRN PRN Reason: Dry Eye(s) Naloxone HCl (Narcan 0.4 Mg/1 Ml) 0.1 mg IV Q2MIN PRN PRN Reason: Res Rate </= 8 or 02 SAT < 92% Vancomycin HCl (Vancomycin Pharmacy To Dose) 1 each IV PKCONSULT STEPHANIE PRN Reason: Protocol Physical Examination - Physical Exam Narrative exam: General appearance: sedated on the vent Eyes: anicteric sclerae, moist conjunctivae HENT: Atraumatic; oropharynx clear + ETT, + NGT Neck: Trachea midline; supple, no thyromegaly or lymphadenopathy Lungs: lila rhonchi CV: RRR, no murmurs Abdomen: slightly tense +BS Extremities: No peripheral edema or extremity lymphadenopathy Skin: Normal temperature, turgor and texture; no rash, ulcers or subcutaneous nodules Psych: sedated. Neuro: sedated Lines: right IJ TLC / Quach clear urine - Constitutional Vitals: Vital Signs Temp Pulse Resp BP Pulse Ox 98.1 F 119 H 16 145/92 77 L 09/02/17 08:26 09/02/17 14:45 09/02/17 14:45 09/02/17 14:45 09/02/17 14:45 Temperature -Last 24 Hours Temperature 98.1 F Temperature 102.4 F Temperature 102.4 F Temperature 98.7 F Results - Labs CBC & Chem 7: 09/02/17 07:36 09/02/17 07:36 Labs: Abnormal lab results 09/01/17 09/01/17 09/01/17 Range/Units 19:00 19:00 23:27 WBC (4.5-11.0) K/mm3 RBC (3.65-5.03) M/mm3 Hgb 10.9 L (11.8-15.2) gm/dl Hct 32.3 L (35.5-45.6) % MCV 83 L (84-94) fl RDW 15.6 H (13.2-15.2) % [place] % (Auto) (0.0-7.3) % Seg Neutrophils % (40.0-70.0) % Seg Neutrophils # Man (1.8-7.7) K/mm3 Lymphocytes # (Manual) (1.2-5.4) K/mm3 PT (12.2-14.9) Sec. INR (0.87-1.13) D-Dimer 976.43 H (0-234) ng/mlDDU POC ABG pH (7.35-7.45) POC ABG pO2 (80-105) Sodium 133 L (137-145) mmol/L Chloride 96.4 L (98-107) mmol/L Glucose 113 H (75-100) mg/dL Lactic Acid (0.7-2.0) mmol/L Magnesium (1.7-2.3) mg/dL Total Protein (6.3-8.2) g/dL Albumin (3.9-5) g/dL 09/01/17 09/02/17 09/02/17 Range/Units 23:27 01:25 07:36 WBC 2.2 L (4.5-11.0) K/mm3 RBC 3.41 L (3.65-5.03) M/mm3 Hgb 9.6 L (11.8-15.2) gm/dl Hct 28.9 L (35.5-45.6) % MCV (84-94) fl RDW 16.0 H (13.2-15.2) % [place] % (Auto) 12.6 H (0.0-7.3) % Seg Neutrophils % 70.4 H (40.0-70.0) % Seg Neutrophils # Man 1.1 L (1.8-7.7) K/mm3 Lymphocytes # (Manual) 0.6 L (1.2-5.4) K/mm3 PT (12.2-14.9) Sec. INR (0.87-1.13) D-Dimer (0-234) ng/mlDDU POC ABG pH (7.35-7.45) POC ABG pO2 (80-105) Sodium (137-145) mmol/L Chloride (98-107) mmol/L Glucose (75-100) mg/dL Lactic Acid 3.30 H* 4.10 H* (0.7-2.0) mmol/L Magnesium (1.7-2.3) mg/dL Total Protein (6.3-8.2) g/dL Albumin (3.9-5) g/dL 09/02/1718 09/02/17 Range/Units 07:36 07:36 07:36 WBC (4.5-11.0) K/mm3 RBC (3.65-5.03) M/mm3 Hgb (11.8-15.2) gm/dl Hct (35.5-45.6) % MCV (84-94) fl RDW (13.2-15.2) % [place] % (Auto) (0.0-7.3) % Seg Neutrophils % (40.0-70.0) % Seg Neutrophils # Man (1.8-7.7) K/mm3 Lymphocytes # (Manual) (1.2-5.4) K/mm3 PT 18.6 H (12.2-14.9) Sec. INR 1.46 H (0.87-1.13) D-Dimer (0-234) ng/mlDDU POC ABG pH (7.35-7.45) POC ABG pO2 (80-105) Sodium 136 L (137-145) mmol/L Chloride (98-107) mmol/L Glucose (75-100) mg/dL Lactic Acid 3.80 H* (0.7-2.0) mmol/L Magnesium 1.20 L (1.7-2.3) mg/dL Total Protein 9.1 H (6.3-8.2) g/dL Albumin 2.0 L (3.9-5) g/dL 09/02/17 09/02/17 09/02/17 Range/Units 08:49 09:40 11:33 WBC (4.5-11.0) K/mm3 RBC (3.65-5.03) M/mm3 Hgb (11.8-15.2) gm/dl Hct (35.5-45.6) % MCV (84-94) fl RDW (13.2-15.2) % [place] % (Auto) (0.0-7.3) % Seg Neutrophils % (40.0-70.0) % Seg Neutrophils # Man (1.8-7.7) K/mm3 Lymphocytes # (Manual) (1.2-5.4) K/mm3 PT (12.2-14.9) Sec. INR (0.87-1.13) D-Dimer (0-234) ng/mlDDU POC ABG pH 7.313 L (7.35-7.45) POC ABG pO2 116 H (80-105) Sodium (137-145) mmol/L Chloride (98-107) mmol/L Glucose (75-100) mg/dL Lactic Acid 3.60 H* 5.20 H* (0.7-2.0) mmol/L Magnesium (1.7-2.3) mg/dL Total Protein (6.3-8.2) g/dL Albumin (3.9-5) g/dL Assessment and Plan Assessment: 1) Severe Sepsis with septic shock: Present on admission, manifested by fever, tachycardia, hypotension, increased lactate. Etiology most likely GNR septicemia. 2) GNR septicemia: unknown source ? Pneumonia ? UTI ? GI -Blood cultures positive 4 of 4 bottles 3) Bilateral pneumonia: recently treated at [facility] ? -Tracheal asp pending 4) Acute respiratory failure: from pneumonia 5) AMS 6) Hyponatremia 7) Recent oral candidiasis ?? patient was on fluconazole and bactrim ? HIV?? Plan: -follow-up blood cultures and respiratory cultures -repeat blood cultures in 24h -check UA, follow-up urine culture -obtain C-reactive protein (CRP) -stop zosyn -start meropenem -continue vancomycin -add fluconazole -obtain TTE -obtain HIV test, cryptococcal serum antigen -CT chest/abd and pelvis Thank you for your consultation, will follow up with you. Eduarda Rolon MD Infectious Diseases Specialist [facility] ([facility]) M [phone] O [phone]
--- NOTE | 2017-09-02 17:18 | Cat Scan Report ---
FINAL REPORT PROCEDURE: CT ANGIO CHEST TECHNIQUE: Computerized tomographic angiography of the chest was performed after the IV injection of iodinated nonionic contrast including image processing. The image data was postprocessed using 2-dimensional multiplanar reformatted (MPR) and 3-dimensional (MIP and/or volume rendered) techniques. HISTORY: SOB, elevated dimer COMPARISON: No prior studies are available for comparison. FINDINGS: Heart and pericardium: Prominent heart size. Thoracic aorta: Normal. Pulmonary vasculature: Normal. Lymph nodes: No enlarged thoracic lymph nodes. Lungs: There is airspace consolidation in the lungs bilaterally involving all lobes, with involvement of a large portion of bilateral lung bases. Air bronchograms are present. Findings could be related to edema or infectious infiltrates. There is also likely a component of atelectasis. Pleural space: Bilateral pulmonary infiltrates are present, right greater than left. Musculoskeletal structures: No significant abnormality. Upper abdominal structures: No significant abnormality. IMPRESSION: No evidence of pulmonary emboli. Extensive bilateral pulmonary airspace opacities which may be related to edema or pneumonia. There is also likely a component of atelectasis. Bilateral pleural effusions are present
[2017-09-02] MEDS: MERREM 1,000 MG in NACL 0.9% 100 ML IV SCH (17:30)
[2017-09-02] MEDS: NOVOLOG SUB-Q SCH (18:06)
[2017-09-02] MEDS: VANCOMYCIN 750 MG in NACL 0.9% 250ML 250 ML IV SCH (19:35)
[2017-09-02] MEDS ORDERED: TYLENOL PR PRN (21:48)
[2017-09-03] MEDS ORDERED: MAGNESIUM SULFATE 2GM/50ML 2 GM/50 ML BAG IV ONE (00:24)
[2017-09-03] MEDS ORDERED: D5NS 1,000 ML IV SCH (01:00)
[2017-09-03] MEDS: LEVOPHED DRIP 4 MG/NS 250 ML 4 MG/250 ML BAG IV SCH (01:04)
[2017-09-03] MEDS: MERREM 1,000 MG in NACL 0.9% 100 ML IV SCH ×3 (01:07→15:39)
[2017-09-03] MEDS: DUONEB *Not for PRN Use IH SCH ×5 (01:55→17:50)
--- NOTE | 2017-09-03 03:35 | XRay Report ---
FINAL REPORT EXAM: XR CHEST 1V AP HISTORY: follow up respiratory failure TECHNIQUE: A portable view of the chest was obtained and compared to the study of 09/02/2017. FINDINGS: The ET tube and NG tube appear in good position. The tip of the right-sided transjugular venous line is in good position in the superior vena cava. The lungs remain moderately congestive with bilateral moderate-sized effusions and airspace disease in both lung bases. The heart is mildly enlarged. The skeletal structures otherwise are unchanged. IMPRESSION: Stable pulmonary vascular congestion with bilateral airspace disease lung bases with moderate-sized effusions. Satisfactory position of all tubes and lines.
[2017-09-03] MEDS: NOVOLOG SUB-Q SCH ×3 (04:05→19:40)
[2017-09-03] MEDS: LEVOPHED 8 MG in NACL 0.9% 250ML 242 ML IV SCH ×5 (05:20→20:52)
[2017-09-03] MEDS ORDERED: SODIUM BICARBONATE IV ONE ×2 (06:04→06:14)
[2017-09-03 06:36] LABS: Hematocrit 31.5 % (35.5-45.6); Hemoglobin 10.1 gm/dl (11.8-15.2); Mean Corpuscular HGB Conc 32 % (32-34); Mean Corpuscular Hemoglobin 28 pg (28-32); Mean Corpuscular Volume 88 fl (84-94); Platelet Count 151 K/mm3 (140-440); Red Blood Count 3.59 M/mm3 (3.65-5.03)
[2017-09-03] MEDS: VANCOMYCIN 750 MG in NACL 0.9% 250ML 250 ML IV SCH (06:43)
[2017-09-03] MEDS: SODIUM BICARBONATE 150 MEQ in D10W 1,000 ML IV SCH ×2 (06:43→17:15)
[2017-09-03] MEDS ORDERED: SODIUM BICARBONATE 150 MEQ in D5W 1,000 ML IV SCH (07:00)
[2017-09-03 07:04] LABS: Albumin 1.7 g/dL (3.9-5); Calcium 7.3 mg/dL (8.4-10.2)
[2017-09-03] MEDS: Vasostrict 20 UNIT in NACL 0.9% 100 ML IV SCH ×2 (07:16→16:43)
[2017-09-03 08:31] LABS: Band Neutrophils # (Manual) 3.4 K/mm3; Basophils % (Manual) 0 % (0.0-1.8); Eosinophils % (Manual) 0 % (0.0-4.3); Total Cells Counted 100
[2017-09-03 08:32] LABS: Anisocytosis 1+; Macrocytosis 1+; Platelet Clumps Rare; Platelet Estimate Consistent w Auto
[2017-09-03] MEDS: DIFLUCAN 200 MG/100 ML BAG IV SCH (10:06)
[2017-09-03] MEDS: PEPCID IV SCH ×2 (10:06→21:49)
[2017-09-03] MEDS: LOVENOX SUB-Q SCH (10:06)
[2017-09-03] MEDS: fentaNYL DRIP Premix 2,000 MCG/100 ML BAG IV SCH (11:49)
--- NOTE | 2017-09-03 12:14 | Progress Note ---
Assessment and Plan 52-year-old male presents to the emergency department with complaint of shortness of breath and some midsternal right-sided chest discomfort with inspiration that started earlier this afternoon and radiates towards the back. The patient was just discharged from the [facility] a few days ago after spending some time therefore bilateral pneumonia. He is on Bactrim and just finished a course of antifungal medication for oral thrush. He denies any past medical history other than this pneumonia. He does not smoke or use illicit drugs. His physicians are through the [facility]. Patient was recently discharged from a 6 day hospital stay at the [facility]. He denies any leg swelling, nausea, vomiting or fever. * Septic shock due to underlying pneumonia currently on two pressors * Lactic acidosis from sepsis worsening - ? gut ischemia * Pneumonia bacteria - Ramón neg rods * Gram Negative bacteremia * Hyperkalemia * Anemia * Acute hypoxemic respiratory failure intubated 09/01/17 * Anemia of chronic disease * Hyponatremia Plan - Continue with iv hydration, Vanc and Meropenem per ID Continue on mechanical ventilation Kayxalate Aggresive Bronchodilator Tx Garn[place] Following Monitor CBC and electrolytes DVT GI prophylaxis with Lovenox and Pepcid discussed with Critical care physician VTE prophylaxis?: Chemical, Mechanical Subjective Date of service: 09/03/17 Principal diagnosis: Septic shock, acute hypoxemic respiratory failure, [place] Interval history: Remain intubated. Still hypotensive. Maxed out on two pressors. Discussed with pt's nurse. Reviewed laboratory and radiological data Objective - Exam Narrative Exam: Constitutional: Well-nourished well-developed. Intubated. In no distress Head: Normocephalic atraumatic Eyes: Pupils are equal round and reactive to light Nose: No enlarged turbinates, no septal deviation. Mouth: Moist mucous membranes. Neck: Supple no thyromegaly. No bruit. No JVD Heart: Regular rate and rhythm, S1-S2 abnormal. No rubs murmurs or gallop Lungs: Decreased breath sounds bilaterally. no rales or rhonchi Abdomen: Soft, nontender. Bowel sound are present. Extremities: No edema no cyanosis and no clubbing. Neuro: Intubated and sedated. Skin: No rashes no hyperemic spots Psychiatry: Intubated and sedated. - Constitutional Vitals: Vital Signs - 12hr 0209/03/17 09/03/17 00:20 00:30 00:40 Temperature Pulse Rate 96 H 95 H 100 H Pulse Rate [ Anterior Bilateral Throughout] Respiratory 16 16 14 Rate Respiratory Rate [Anterior Bilateral Throughout] Blood Pressure 111/78 117/81 117/81 O2 Sat by Pulse 94 97 Oximetry 09/03/17 09/03/17 09/03/17 00:50 01:00 01:10 Temperature Pulse Rate 105 H 96 H 109 H Pulse Rate [ 98 H Anterior Bilateral Throughout] Respiratory 16 17 19 Rate Respiratory 34 H Rate [Anterior Bilateral Throughout] Blood Pressure 121/81 124/85 124/85 O2 Sat by Pulse 94 91 96 Oximetry 09/03/17 09/03/17 09/03/17 01:20 01:30 01:40 Temperature Pulse Rate 99 H 98 H 110 H Pulse Rate [ Anterior Bilateral Throughout] Respiratory 16 17 18 Rate Respiratory Rate [Anterior Bilateral Throughout] Blood Pressure 127/82 133/83 133/83 O2 Sat by Pulse 96 97 93 Oximetry 09/03/17 09/03/17 09/03/17 01:48 01:50 02:00 Temperature Pulse Rate 98 H 99 H Pulse Rate [ Anterior Bilateral Throughout] Respiratory 31 H 30 H Rate Respiratory Rate [Anterior Bilateral Throughout] Blood Pressure 120/83 120/83 117/96 O2 Sat by Pulse 99 98 Oximetry 09/03/17 09/03/17 09/03/17 02:10 02:20 02:30 Temperature Pulse Rate 102 H 101 H 99 H Pulse Rate [ Anterior Bilateral Throughout] Respiratory 31 H 25 H 14 Rate Respiratory Rate [Anterior Bilateral Throughout] Blood Pressure 117/96 61/27 60/10 O2 Sat by Pulse 100 95 93 Oximetry 09/03/17 09/03/17 09/03/17 02:40 02:50 03:00 Temperature Pulse Rate 98 H 97 H 96 H Pulse Rate [ Anterior Bilateral Throughout] Respiratory 19 21 19 Rate Respiratory Rate [Anterior Bilateral Throughout] Blood Pressure 60/10 123/84 123/84 O2 Sat by Pulse 96 95 Oximetry 09/03/17 09/03/17 09/03/17 03:10 03:20 03:30 Temperature Pulse Rate 95 H 92 H 90 Pulse Rate [ Anterior Bilateral Throughout] Respiratory 13 14 Rate Respiratory Rate [Anterior Bilateral Throughout] Blood Pressure 123/84 123/84 123/84 O2 Sat by Pulse 94 Oximetry 09/03/17 09/03/17 09/03/17 03:40 03:50 04:00 Temperature 97.8 F Pulse Rate 87 88 81 Pulse Rate [ Anterior Bilateral Throughout] Respiratory 13 16 17 Rate Respiratory Rate [Anterior Bilateral Throughout] Blood Pressure 69/14 73/25 91/33 O2 Sat by Pulse 96 94 95 Oximetry 09/03/17 09/03/17 09/03/17 04:10 04:20 04:30 Temperature Pulse Rate 83 83 85 Pulse Rate [ Anterior Bilateral Throughout] Respiratory 13 14 14 Rate Respiratory Rate [Anterior Bilateral Throughout] Blood Pressure 73/25 87/39 86/33 O2 Sat by Pulse 94 91 95 Oximetry 09/03/17 09/03/17 09/03/17 04:40 04:50 05:00 Temperature Pulse Rate 84 87 108 H Pulse Rate [ Anterior Bilateral Throughout] Respiratory 15 15 14 Rate Respiratory Rate [Anterior Bilateral Throughout] Blood Pressure 91/33 90/39 128/73 O2 Sat by Pulse 92 89 91 Oximetry 09/03/17 09/03/17 09/03/17 05:10 05:20 05:30 Temperature Pulse Rate 112 H 112 H 112 H Pulse Rate [ Anterior Bilateral Throughout] Respiratory 17 17 22 Rate Respiratory Rate [Anterior Bilateral Throughout] Blood Pressure 128/73 143/80 143/74 O2 Sat by Pulse 93 87 89 Oximetry 09/03/17 09/03/17 09/03/17 05:40 05:50 06:00 Temperature Pulse Rate 113 H 111 H 100 H Pulse Rate [ Anterior Bilateral Throughout] Respiratory 14 15 13 Rate Respiratory Rate [Anterior Bilateral Throughout] Blood Pressure 143/74 146/75 88/38 O2 Sat by Pulse 90 90 88 Oximetry 09/03/17 09/03/17 09/03/17 06:10 06:20 06:30 Temperature Pulse Rate 99 H 99 H 97 H Pulse Rate [ Anterior Bilateral Throughout] Respiratory 15 14 16 Rate Respiratory Rate [Anterior Bilateral Throughout] Blood Pressure 88/38 112/66 115/59 O2 Sat by Pulse 87 85 85 Oximetry 09/03/17 09/03/17 09/03/17 06:40 06:50 07:00 Temperature Pulse Rate 102 H 100 H 94 H Pulse Rate [ Anterior Bilateral Throughout] Respiratory 15 15 15 Rate Respiratory Rate [Anterior Bilateral Throughout] Blood Pressure 115/59 122/66 78/29 O2 Sat by Pulse 90 88 85 Oximetry 09/03/17 09/03/17 09/03/17 07:10 07:20 07:28 Temperature Pulse Rate 103 H 98 H 93 H Pulse Rate [ Anterior Bilateral Throughout] Respiratory 19 15 Rate Respiratory Rate [Anterior Bilateral Throughout] Blood Pressure 118/75 128/72 128/72 O2 Sat by Pulse 89 95 89 Oximetry 09/03/17 09/03/17 09/03/17 07:30 07:36 07:37 Temperature Pulse Rate 97 H Pulse Rate [ 100 H 97 H Anterior Bilateral Throughout] Respiratory 22 Rate Respiratory 25 H 21 Rate [Anterior Bilateral Throughout] Blood Pressure 136/77 O2 Sat by Pulse 88 Oximetry 09/03/17 09/03/17 09/03/17 07:40 07:50 08:00 Temperature 97.5 F L Pulse Rate 96 H 96 H 92 H Pulse Rate [ Anterior Bilateral Throughout] Respiratory 18 20 15 Rate Respiratory Rate [Anterior Bilateral Throughout] Blood Pressure 136/77 127/73 144/80 O2 Sat by Pulse 89 94 92 Oximetry 09/03/17 09/03/17 09/03/17 08:10 08:20 08:30 Temperature Pulse Rate 96 H 97 H 96 H Pulse Rate [ Anterior Bilateral Throughout] Respiratory 17 19 25 H Rate Respiratory Rate [Anterior Bilateral Throughout] Blood Pressure 144/80 121/69 131/78 O2 Sat by Pulse 93 93 91 Oximetry 09/03/17 09/03/17 09/03/17 08:40 08:50 09:00 Temperature Pulse Rate 95 H 94 H 96 H Pulse Rate [ Anterior Bilateral Throughout] Respiratory 18 20 21 Rate Respiratory Rate [Anterior Bilateral Throughout] Blood Pressure 131/78 113/70 115/61 O2 Sat by Pulse 91 95 97 Oximetry 09/03/17 09/03/17 09/03/17 09:10 09:20 09:30 Temperature Pulse Rate 96 H 95 H 96 H Pulse Rate [ Anterior Bilateral Throughout] Respiratory 26 H 20 22 Rate Respiratory Rate [Anterior Bilateral Throughout] Blood Pressure 115/61 139/76 133/70 O2 Sat by Pulse 96 93 93 Oximetry 09/03/17 09/03/17 09/03/17 09:40 09:50 10:00 Temperature Pulse Rate 97 H 98 H 101 H Pulse Rate [ Anterior Bilateral Throughout] Respiratory 22 22 23 Rate Respiratory Rate [Anterior Bilateral Throughout] Blood Pressure 133/70 120/76 140/71 O2 Sat by Pulse 93 94 94 Oximetry 09/03/17 09/03/17 09/03/17 10:10 10:20 10:30 Temperature Pulse Rate 97 H 100 H 102 H Pulse Rate [ Anterior Bilateral Throughout] Respiratory 24 25 H 26 H Rate Respiratory Rate [Anterior Bilateral Throughout] Blood Pressure 140/71 114/74 134/64 O2 Sat by Pulse 96 94 97 Oximetry 09/03/17 09/03/17 09/03/17 10:40 10:50 11:00 Temperature Pulse Rate 103 H 111 H 117 H Pulse Rate [ Anterior Bilateral Throughout] Respiratory 36 H 34 H 34 H Rate Respiratory Rate [Anterior Bilateral Throughout] Blood Pressure 134/64 145/86 139/78 O2 Sat by Pulse 94 92 91 Oximetry 09/03/17 09/03/17 09/03/17 11:10 11:20 11:25 Temperature Pulse Rate 118 H 120 H Pulse Rate [ Anterior Bilateral Throughout] Respiratory 32 H 33 H 32 H Rate Respiratory Rate [Anterior Bilateral Throughout] Blood Pressure 139/78 142/96 O2 Sat by Pulse 89 90 Oximetry 09/03/17 12:00 Temperature 97.6 F Pulse Rate Pulse Rate [ Anterior Bilateral Throughout] Respiratory Rate Respiratory Rate [Anterior Bilateral Throughout] Blood Pressure O2 Sat by Pulse Oximetry - Labs CBC & Chem 7: 09/03/17 05:15 09/03/17 05:15 Labs: Abnormal lab results 09/02/17 09/02/17 09/02/17 Range/Units 11:33 19:34 23:37 RBC (3.65-5.03) M/mm3 Hgb (11.8-15.2) gm/dl Hct (35.5-45.6) % RDW (13.2-15.2) % Lymphocytes % (Manual) (13.4-35.0) % Nucleated RBC % (0.0-0.9) % Lymphocytes # (Manual) (1.2-5.4) K/mm3 POC ABG pH (7.35-7.45) POC ABG pO2 (80-105) Potassium (3.6-5.0) mmol/L Chloride (98-107) mmol/L Carbon Dioxide (22-30) mmol/L BUN (9-20) mg/dL Glucose (75-100) mg/dL POC Glucose 47 L (70-105) Lactic Acid 5.20 H* (0.7-2.0) mmol/L Calcium (8.4-10.2) mg/dL Phosphorus (2.5-4.5) mg/dL AST (5-40) units/L C-Reactive Protein 22.30 H (0.00-1.30) mg/dL Albumin (3.9-5) g/dL 09/02/17 09/03/17 09/03/17 Range/Units 23:40 00:06 05:15 RBC (3.65-5.03) M/mm3 Hgb (11.8-15.2) gm/dl Hct (35.5-45.6) % RDW (13.2-15.2) % Lymphocytes % (Manual) (13.4-35.0) % Nucleated RBC % (0.0-0.9) % Lymphocytes # (Manual) (1.2-5.4) K/mm3 POC ABG pH (7.35-7.45) POC ABG pO2 (80-105) Potassium (3.6-5.0) mmol/L Chloride (98-107) mmol/L Carbon Dioxide (22-30) mmol/L BUN (9-20) mg/dL Glucose 59 L (75-100) mg/dL POC Glucose 144 H (70-105) Lactic Acid 9.10 H* (0.7-2.0) mmol/L Calcium (8.4-10.2) mg/dL Phosphorus (2.5-4.5) mg/dL AST (5-40) units/L C-Reactive Protein (0.00-1.30) mg/dL Albumin (3.9-5) g/dL 09/03/17 09/03/17 09/03/17 Range/Units 05:15 05:15 05:55 RBC 3.59 L (3.65-5.03) M/mm3 Hgb 10.1 L (11.8-15.2) gm/dl Hct 31.5 L (35.5-45.6) % RDW 18.0 H (13.2-15.2) % Lymphocytes % (Manual) 1.0 L (13.4-35.0) % Nucleated RBC % 1.0 H (0.0-0.9) % Lymphocytes # (Manual) 0.1 L (1.2-5.4) K/mm3 POC ABG pH 6.999 L (7.35-7.45) POC ABG pO2 64 L (80-105) Potassium 5.6 H D (3.6-5.0) mmol/L Chloride 108.4 H (98-107) mmol/L Carbon Dioxide 11 L D (22-30) mmol/L BUN 30 H (9-20) mg/dL Glucose 115 H (75-100) mg/dL POC Glucose (70-105) Lactic Acid (0.7-2.0) mmol/L Calcium 7.3 L D (8.4-10.2) mg/dL Phosphorus 6.40 H (2.5-4.5) mg/dL AST 88 H (5-40) units/L C-Reactive Protein (0.00-1.30) mg/dL Albumin 1.7 L (3.9-5) g/dL 09/03/17 09/03/17 Range/Units 07:40 09:55 RBC (3.65-5.03) M/mm3 Hgb (11.8-15.2) gm/dl Hct (35.5-45.6) % RDW (13.2-15.2) % Lymphocytes % (Manual) (13.4-35.0) % Nucleated RBC % (0.0-0.9) % Lymphocytes # (Manual) (1.2-5.4) K/mm3 POC ABG pH (7.35-7.45) POC ABG pO2 (80-105) Potassium (3.6-5.0) mmol/L Chloride (98-107) mmol/L Carbon Dioxide (22-30) mmol/L BUN (9-20) mg/dL Glucose (75-100) mg/dL POC Glucose (70-105) Lactic Acid 9.20 H* 9.50 H* (0.7-2.0) mmol/L Calcium (8.4-10.2) mg/dL Phosphorus (2.5-4.5) mg/dL AST (5-40) units/L C-Reactive Protein (0.00-1.30) mg/dL Albumin (3.9-5) g/dL
[2017-09-03] MEDS ORDERED: NACL 0.9% 1000 ML 1,000 ML IV ONE ×4 (13:11→13:12)
--- NOTE | 2017-09-03 13:12 | Progress Note ---
Assessment and Plan 52 y/o male, vet, admitted with acute respiratory failure thought secondary to pneumonia with lactic acidosis 1. Unexplained lactic acidosis with clinical stablility. Could be from lack of adequate resuscitation. Will give 4 more liter boluses and will continue to bolus. Explained to nursing that he is already on the vent and we will deal with oxygenation. 2. Check lactic acids q6 hours 3. Will order art line placement 4. Agree that CT is needed once patient is more hemodynamically stable 5. Continue Bicarb for now. 6. RT will repeat ABG later today 7. Agree with echo 8. Overall prognosis is guarded to poor. No family at bedside to discuss with but patient is awake and alert and I discussed the severity of his illness. CCT 31 minutes. Subjective Date of service: 09/03/17 Principal diagnosis: Septic shock, acute hypoxemic respiratory failure, [place] Interval history: No acute events. Unfortunately Lactic acid has continued to rise and pH has worsened. Patient is awake and alert. Follow commands. Still hypotensive and currently on levophed and vasopressin. Bicarb drip started this am 3 amps given IV push. Still making good urine. Objective Vital Signs - 12hr 09/03/17 09/03/17 09/03/17 01:10 01:20 01:30 Temperature Pulse Rate 109 H 99 H 98 H Pulse Rate [ Anterior Bilateral Throughout] Respiratory 19 16 17 Rate Respiratory Rate [Anterior Bilateral Throughout] Blood Pressure 124/85 127/82 133/83 O2 Sat by Pulse 96 96 97 Oximetry 09/03/17 09/03/17 09/03/17 01:40 01:48 01:50 Temperature Pulse Rate 110 H 98 H Pulse Rate [ Anterior Bilateral Throughout] Respiratory 18 31 H Rate Respiratory Rate [Anterior Bilateral Throughout] Blood Pressure 133/83 120/83 120/83 O2 Sat by Pulse 93 99 98 Oximetry 09/03/17 09/03/17 09/03/17 02:00 02:10 02:20 Temperature Pulse Rate 99 H 102 H 101 H Pulse Rate [ Anterior Bilateral Throughout] Respiratory 30 H 31 H 25 H Rate Respiratory Rate [Anterior Bilateral Throughout] Blood Pressure 117/96 117/96 61/27 O2 Sat by Pulse 100 95 Oximetry 09/03/17 09/03/17 09/03/17 02:30 02:40 02:50 Temperature Pulse Rate 99 H 98 H 97 H Pulse Rate [ Anterior Bilateral Throughout] Respiratory 14 19 21 Rate Respiratory Rate [Anterior Bilateral Throughout] Blood Pressure 60/10 60/10 123/84 O2 Sat by Pulse 93 96 95 Oximetry 09/03/17 09/03/17 09/03/17 03:00 03:10 03:20 Temperature Pulse Rate 96 H 95 H 92 H Pulse Rate [ Anterior Bilateral Throughout] Respiratory 19 13 Rate Respiratory Rate [Anterior Bilateral Throughout] Blood Pressure 123/84 123/84 123/84 O2 Sat by Pulse 94 Oximetry 09/03/17 09/03/17 09/03/17 03:30 03:40 03:50 Temperature Pulse Rate 90 87 88 Pulse Rate [ Anterior Bilateral Throughout] Respiratory 14 13 16 Rate Respiratory Rate [Anterior Bilateral Throughout] Blood Pressure 123/84 69/14 73/25 O2 Sat by Pulse 96 94 Oximetry 09/03/17 09/03/17 09/03/17 04:00 04:10 04:20 Temperature 97.8 F Pulse Rate 81 83 83 Pulse Rate [ Anterior Bilateral Throughout] Respiratory 17 13 14 Rate Respiratory Rate [Anterior Bilateral Throughout] Blood Pressure 91/33 73/25 87/39 O2 Sat by Pulse 95 94 91 Oximetry 09/03/17 09/03/17 09/03/17 04:30 04:40 04:50 Temperature Pulse Rate 85 84 87 Pulse Rate [ Anterior Bilateral Throughout] Respiratory 14 15 15 Rate Respiratory Rate [Anterior Bilateral Throughout] Blood Pressure 86/33 91/33 90/39 O2 Sat by Pulse 95 92 89 Oximetry 09/03/17 09/03/17 09/03/17 05:00 05:10 05:20 Temperature Pulse Rate 108 H 112 H 112 H Pulse Rate [ Anterior Bilateral Throughout] Respiratory 14 17 17 Rate Respiratory Rate [Anterior Bilateral Throughout] Blood Pressure 128/73 128/73 143/80 O2 Sat by Pulse 91 93 87 Oximetry 09/03/17 09/03/17 09/03/17 05:30 05:40 05:50 Temperature Pulse Rate 112 H 113 H 111 H Pulse Rate [ Anterior Bilateral Throughout] Respiratory 22 14 15 Rate Respiratory Rate [Anterior Bilateral Throughout] Blood Pressure 143/74 143/74 146/75 O2 Sat by Pulse 89 90 90 Oximetry 09/03/17 09/03/17 09/03/17 06:00 06:10 06:20 Temperature Pulse Rate 100 H 99 H 99 H Pulse Rate [ Anterior Bilateral Throughout] Respiratory 13 15 14 Rate Respiratory Rate [Anterior Bilateral Throughout] Blood Pressure 88/38 88/38 112/66 O2 Sat by Pulse 88 87 85 Oximetry 09/03/17 09/03/17 09/03/17 06:30 06:40 06:50 Temperature Pulse Rate 97 H 102 H 100 H Pulse Rate [ Anterior Bilateral Throughout] Respiratory 16 15 15 Rate Respiratory Rate [Anterior Bilateral Throughout] Blood Pressure 115/59 115/59 122/66 O2 Sat by Pulse 85 90 88 Oximetry 09/03/17 09/03/17 09/03/17 07:00 07:10 07:20 Temperature Pulse Rate 94 H 103 H 98 H Pulse Rate [ Anterior Bilateral Throughout] Respiratory 15 19 15 Rate Respiratory Rate [Anterior Bilateral Throughout] Blood Pressure 78/29 118/75 128/72 O2 Sat by Pulse 85 89 95 Oximetry 09/03/17 09/03/17 09/03/17 07:28 07:30 07:36 Temperature Pulse Rate 93 H 97 H Pulse Rate [ 100 H Anterior Bilateral Throughout] Respiratory 22 Rate Respiratory 25 H Rate [Anterior Bilateral Throughout] Blood Pressure 128/72 136/77 O2 Sat by Pulse 89 88 Oximetry 09/03/17 09/03/17 09/03/17 07:37 07:40 07:50 Temperature Pulse Rate 96 H 96 H Pulse Rate [ 97 H Anterior Bilateral Throughout] Respiratory 18 20 Rate Respiratory 21 Rate [Anterior Bilateral Throughout] Blood Pressure 136/77 127/73 O2 Sat by Pulse 89 94 Oximetry 09/03/17 09/03/17 09/03/17 08:00 08:10 08:20 Temperature 97.5 F L Pulse Rate 92 H 96 H 97 H Pulse Rate [ Anterior Bilateral Throughout] Respiratory 15 17 19 Rate Respiratory Rate [Anterior Bilateral Throughout] Blood Pressure 144/80 144/80 121/69 O2 Sat by Pulse 92 93 93 Oximetry 09/03/17 09/03/17 09/03/17 08:30 08:40 08:50 Temperature Pulse Rate 96 H 95 H 94 H Pulse Rate [ Anterior Bilateral Throughout] Respiratory 25 H 18 20 Rate Respiratory Rate [Anterior Bilateral Throughout] Blood Pressure 131/78 131/78 113/70 O2 Sat by Pulse 91 91 95 Oximetry 09/03/17 09/03/17 09/03/17 09:00 09:10 09:20 Temperature Pulse Rate 96 H 96 H 95 H Pulse Rate [ Anterior Bilateral Throughout] Respiratory 21 26 H 20 Rate Respiratory Rate [Anterior Bilateral Throughout] Blood Pressure 115/61 115/61 139/76 O2 Sat by Pulse 97 96 93 Oximetry 09/03/17 09/03/17 09/03/17 09:30 09:40 09:50 Temperature Pulse Rate 96 H 97 H 98 H Pulse Rate [ Anterior Bilateral Throughout] Respiratory 22 22 22 Rate Respiratory Rate [Anterior Bilateral Throughout] Blood Pressure 133/70 133/70 120/76 O2 Sat by Pulse 93 93 94 Oximetry 09/03/17 09/03/17 09/03/17 10:00 10:10 10:20 Temperature Pulse Rate 101 H 97 H 100 H Pulse Rate [ Anterior Bilateral Throughout] Respiratory 23 24 25 H Rate Respiratory Rate [Anterior Bilateral Throughout] Blood Pressure 140/71 140/71 114/74 O2 Sat by Pulse 94 96 94 Oximetry 09/03/17 09/03/17 09/03/17 10:30 10:40 10:50 Temperature Pulse Rate 102 H 103 H 111 H Pulse Rate [ Anterior Bilateral Throughout] Respiratory 26 H 36 H 34 H Rate Respiratory Rate [Anterior Bilateral Throughout] Blood Pressure 134/64 134/64 145/86 O2 Sat by Pulse 97 94 92 Oximetry 09/03/17 09/03/17 09/03/17 11:00 11:10 11:20 Temperature Pulse Rate 117 H 118 H 120 H Pulse Rate [ Anterior Bilateral Throughout] Respiratory 34 H 32 H 33 H Rate Respiratory Rate [Anterior Bilateral Throughout] Blood Pressure 139/78 139/78 142/96 O2 Sat by Pulse 91 89 90 Oximetry 09/03/17 09/03/17 09/03/17 11:25 12:00 12:37 Temperature 97.6 F Pulse Rate 110 H Pulse Rate [ Anterior Bilateral Throughout] Respiratory 32 H Rate Respiratory Rate [Anterior Bilateral Throughout] Blood Pressure 135/64 O2 Sat by Pulse 91 Oximetry 09/03/17 09/03/17 12:47 12:48 Temperature Pulse Rate Pulse Rate [ 113 H 112 H Anterior Bilateral Throughout] Respiratory Rate Respiratory 24 29 H Rate [Anterior Bilateral Throughout] Blood Pressure O2 Sat by Pulse Oximetry Constitutional: alert, appears uncomfortable Eyes: non-icteric ENT: other (orally intubated and sedated) Neck: supple Effort: mildly labored Ascultation: Bilateral: diminished breath sounds, rales Percussion: Bilateral: not dull Cardiovascular: regular rate and rhythm (sinus tach) Gastrointestinal: hypoactive bowel sounds, soft, non-tender Extremities: no edema CBC and BMP: 09/03/17 05:15 09/03/17 05:15 ABG, PT/INR, D-dimer: ABG POC ABG pH 6.999 (7.35-7.45) L 09/03/17 05:55 POC ABG pCO2 42.2 (35-45) 09/03/17 05:55 POC ABG pO2 64 (80-105) L 09/03/17 05:55 POC ABG HCO3 10.4 09/03/17 05:55 POC ABG Total CO2 12 09/03/17 05:55 POC ABG O2 Sat 79 09/03/17 05:55 PT/INR, D-dimer PT 18.6 Sec. (12.2-14.9) H 09/02/17 07:36 INR 1.46 (0.87-1.13) H 09/02/17 07:36 D-Dimer 976.43 ng/mlDDU (0-234) H 09/01/17 23:27 Abnormal lab findings: Abnormal Labs 09/01/17 09/01/17 09/01/17 19:00 19:00 23:27 WBC RBC Hgb 10.9 L Hct 32.3 L MCV 83 L RDW 15.6 H [place] % (Auto) Seg Neutrophils % Lymphocytes % (Manual) Nucleated RBC % Seg Neutrophils # Man Lymphocytes # (Manual) PT INR D-Dimer 976.43 H POC ABG pH POC ABG pO2 Sodium 133 L Potassium Chloride 96.4 L Carbon Dioxide BUN Glucose 113 H POC Glucose Lactic Acid Calcium Phosphorus Magnesium AST C-Reactive Protein Total Protein Albumin 09/01/17 09/02/17 09/02/17 23:27 01:25 07:36 WBC 2.2 L RBC 3.41 L Hgb 9.6 L Hct 28.9 L MCV RDW 16.0 H [place] % (Auto) 12.6 H Seg Neutrophils % 70.4 H Lymphocytes % (Manual) Nucleated RBC % Seg Neutrophils # Man 1.1 L Lymphocytes # (Manual) 0.6 L PT INR D-Dimer POC ABG pH POC ABG pO2 Sodium Potassium Chloride Carbon Dioxide BUN Glucose POC Glucose Lactic Acid 3.30 H* 4.10 H* Calcium Phosphorus Magnesium AST C-Reactive Protein Total Protein Albumin 09/02/17 09/02/17 09/02/17 07:36 07:36 07:36 WBC RBC Hgb Hct MCV RDW [place] % (Auto) Seg Neutrophils % Lymphocytes % (Manual) Nucleated RBC % Seg Neutrophils # Man Lymphocytes # (Manual) PT 18.6 H INR 1.46 H D-Dimer POC ABG pH POC ABG pO2 Sodium 136 L Potassium Chloride Carbon Dioxide BUN Glucose POC Glucose Lactic Acid 3.80 H* Calcium Phosphorus Magnesium 1.20 L AST C-Reactive Protein Total Protein 9.1 H Albumin 2.0 L 09/02/17 09/02/17 09/02/17 08:49 09:40 11:33 WBC RBC Hgb Hct MCV RDW [place] % (Auto) Seg Neutrophils % Lymphocytes % (Manual) Nucleated RBC % Seg Neutrophils # Man Lymphocytes # (Manual) PT INR D-Dimer POC ABG pH 7.313 L POC ABG pO2 116 H Sodium Potassium Chloride Carbon Dioxide BUN Glucose POC Glucose Lactic Acid 3.60 H* 5.20 H* Calcium Phosphorus Magnesium AST C-Reactive Protein Total Protein Albumin 09/02/17 09/02/17 09/02/17 19:34 23:37 23:40 WBC RBC Hgb Hct MCV RDW [place] % (Auto) Seg Neutrophils % Lymphocytes % (Manual) Nucleated RBC % Seg Neutrophils # Man Lymphocytes # (Manual) PT INR D-Dimer POC ABG pH POC ABG pO2 Sodium Potassium Chloride Carbon Dioxide BUN Glucose 59 L POC Glucose 47 L Lactic Acid Calcium Phosphorus Magnesium AST C-Reactive Protein 22.30 H Total Protein Albumin 09/03/17 09/03/17 09/03/17 00:06 05:15 05:15 WBC RBC 3.59 L Hgb 10.1 L Hct 31.5 L MCV RDW 18.0 H [place] % (Auto) Seg Neutrophils % Lymphocytes % (Manual) 1.0 L Nucleated RBC % 1.0 H Seg Neutrophils # Man Lymphocytes # (Manual) 0.1 L PT INR D-Dimer POC ABG pH POC ABG pO2 Sodium Potassium Chloride Carbon Dioxide BUN Glucose POC Glucose 144 H Lactic Acid 9.10 H* Calcium Phosphorus Magnesium AST C-Reactive Protein Total Protein Albumin 09/03/17 09/03/17 09/03/17 05:15 05:55 07:40 WBC RBC Hgb Hct MCV RDW [place] % (Auto) Seg Neutrophils % Lymphocytes % (Manual) Nucleated RBC % Seg Neutrophils # Man Lymphocytes # (Manual) PT INR D-Dimer POC ABG pH 6.999 L POC ABG pO2 64 L Sodium Potassium 5.6 H D Chloride 108.4 H Carbon Dioxide 11 L D BUN 30 H Glucose 115 H POC Glucose Lactic Acid 9.20 H* Calcium 7.3 L D Phosphorus 6.40 H Magnesium AST 88 H C-Reactive Protein Total Protein Albumin 1.7 L 09/03/17 09:55 WBC RBC Hgb Hct MCV RDW [place] % (Auto) Seg Neutrophils % Lymphocytes % (Manual) Nucleated RBC % Seg Neutrophils # Man Lymphocytes # (Manual) PT INR D-Dimer POC ABG pH POC ABG pO2 Sodium Potassium Chloride Carbon Dioxide BUN Glucose POC Glucose Lactic Acid 9.50 H* Calcium Phosphorus Magnesium AST C-Reactive Protein Total Protein Albumin
[2017-09-03] MEDS ORDERED: NACL 0.9% 500 ML 500 ML ONE ×2 (13:37→15:03)
[2017-09-03] MEDS: INTROPIN DRIP 800 MG/D5W 250 ML 800 MG/250 ML BAG IV SCH (14:35)
[2017-09-04] MEDS: DUONEB *Not for PRN Use IH SCH ×8 (00:09→23:31)
[2017-09-04] MEDS: fentaNYL DRIP Premix 2,000 MCG/100 ML BAG IV SCH ×2 (00:26→18:02)
[2017-09-04] MEDS: LEVOPHED 8 MG in NACL 0.9% 250ML 242 ML IV SCH ×6 (00:27→22:16)
[2017-09-04] MEDS: MERREM 1,000 MG in NACL 0.9% 100 ML IV SCH ×3 (00:30→15:45)
--- NOTE | 2017-09-04 03:44 | XRay Report ---
FINAL REPORT EXAM: XR CHEST 1V AP HISTORY: follow up respiratory failure COMPARISON: September 03, 2017. FINDINGS: Frontal view(s) of the chest obtained. Stable mild cardiac enlargement. Lines and tubes unchanged. ETT, NG tube, right IJ line. Increasing right-sided pleural effusion. Moderate to large right-sided pleural effusion. Diffuse patchy airspace opacities throughout the lungs increased from prior study. IMPRESSION: Increasing pulmonary infiltrates and increasing right-sided pleural effusion. Lines and tubes are grossly unchanged.
[2017-09-04] MEDS ORDERED: NACL 0.9% 1000 ML 1,000 ML ONE (05:26)
[2017-09-04] MEDS: SODIUM BICARBONATE 150 MEQ in D10W 1,000 ML IV SCH ×2 (05:39→22:17)
[2017-09-04 05:50] LABS: Alanine Aminotransferase 315 units/L (7-56); Albumin 1.6 g/dL (3.9-5); BUN/Creatinine Ratio 26; Blood Urea Nitrogen 29 mg/dL (9-20); Calcium 6.8 mg/dL (8.4-10.2); Hemolysis Index 58
[2017-09-04 05:55] LABS: INR 2.47 (0.87-1.13)
[2017-09-04] MEDS: NOVOLOG SUB-Q SCH ×7 (06:31→17:47)
[2017-09-04] MEDS: VANCOMYCIN 750 MG in NACL 0.9% 250ML 250 ML IV SCH ×3 (07:06→18:37)
--- NOTE | 2017-09-04 07:57 | Progress Note ---
Assessment and Plan Assessment: 1) Severe Sepsis with septic shock: Present on admission, manifested by fever, tachycardia, hypotension, increased lactate. Etiology most likely GNR septicemia. -CRP 22.30. -Lactic acid improving. -Still on 3 pressors. -Low grade fever yesterday. 2) GNR septicemia: unknown source ? Pneumonia ? UTI ? GI -Blood cultures positive 4 of 4 bottles 3) Bilateral pneumonia: recently treated at [facility] ? -Tracheal asp pending - CT chest 09/02 with extensive bilateral pulmonary opacities due to edema vs PNA. Also component of atelectasis. Bilateral pleural effusions. 4) Acute respiratory failure. Intubated. From pneumonia. 5) Encephalopathy. 6) Hyponatremia. 7) Recent oral Candidiasis ?? patient was on fluconazole and bactrim ? HIV?? Plan: -follow-up respiratory cultures. -follow-up Legionella ag, pneumococcal ag, HIV. -repeat blood cultures today. -check Cryptococcal serum antigen. -Awaiting ID and sensitivities of GNR in blood cx. -continue meropenem (D3), vancomycin (D3), fluconazole (D2) -obtain TTE. 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 Giselle Moran MD Infectious Diseases Specialist [facility] ([facility]) m [phone]. Subjective Date of service: 09/04/17 Principal diagnosis: Septic shock, acute hypoxemic respiratory failure, [place] Interval history: Remains intubated. On 3 pressors, max dose levophed, vasopressin and dopamine. Afebrile so far today. Low grade fever yesterday. Microbiology: Blood cultures: 09/01 GNR x 4 bottles Urine cultures: 09/02 Neg Respiratory cultures: TA 09/02 in progress Current Antimicrobials: Meropenem 09/02- Fluconazole 09/03- Vanco 09/02- Previous Antimicrobials: Zosyn 09/02 Azithro 09/02- Objective - Exam Narrative Exam: General appearance: Pt in NAD. Sedated on the vent Eyes: anicteric sclerae, moist conjunctivae HENT: Atraumatic; oropharynx clear + ETT, + NGT Neck: Trachea midline; supple, no thyromegaly or lymphadenopathy Lungs: lila rhonchi CV: RRR. Abdomen: slightly tense +BS. Extremities: No peripheral edema or extremity lymphadenopathy Skin: Normal temperature, turgor and texture; no rash, ulcers or subcutaneous nodules Psych: sedated. Neuro: sedated Lines: right IJ TLC / Quach clear urine - Constitutional Vitals: Vital Signs Temp Pulse Resp BP Pulse Ox 99.4 F 123 H 19 99/30 96 09/04/17 04:00 09/04/17 07:30 09/04/17 07:30 09/04/17 07:30 09/04/17 07:30 Temperature -Last 24 Hours Temperature 99.4 F Temperature 99.1 F Temperature 100.3 F Temperature 97.7 F Temperature 97.6 F Temperature 97.5 F - Labs CBC & Chem 7: 09/03/17 05:15 09/04/17 04:00 Labs: Abnormal lab results 09/03/17 09/03/17 09/03/17 Range/Units 05:15 05:15 07:40 Lymphocytes % (Manual) 1.0 L (13.4-35.0) % Nucleated RBC % 1.0 H (0.0-0.9) % Lymphocytes # (Manual) 0.1 L (1.2-5.4) K/mm3 PT (12.2-14.9) Sec. INR (0.87-1.13) Chloride (98-107) mmol/L BUN (9-20) mg/dL Glucose (75-100) mg/dL POC Glucose (70-105) Lactic Acid 9.10 H* 9.20 H* (0.7-2.0) mmol/L Calcium (8.4-10.2) mg/dL AST (5-40) units/L ALT (7-56) units/L Albumin (3.9-5) g/dL 09/03/17 09/03/17 09/03/17 Range/Units 09:55 12:03 13:17 Lymphocytes % (Manual) (13.4-35.0) % Nucleated RBC % (0.0-0.9) % Lymphocytes # (Manual) (1.2-5.4) K/mm3 PT (12.2-14.9) Sec. INR (0.87-1.13) Chloride (98-107) mmol/L BUN (9-20) mg/dL Glucose (75-100) mg/dL POC Glucose 155 H (70-105) Lactic Acid 9.50 H* 9.90 H* (0.7-2.0) mmol/L Calcium (8.4-10.2) mg/dL AST (5-40) units/L ALT (7-56) units/L Albumin (3.9-5) g/dL 09/03/17 09/03/17 09/03/17 Range/Units 15:55 17:13 18:02 Lymphocytes % (Manual) (13.4-35.0) % Nucleated RBC % (0.0-0.9) % Lymphocytes # (Manual) (1.2-5.4) K/mm3 PT (12.2-14.9) Sec. INR (0.87-1.13) Chloride (98-107) mmol/L BUN (9-20) mg/dL Glucose (75-100) mg/dL POC Glucose 171 H (70-105) Lactic Acid 9.60 H* 9.00 H* (0.7-2.0) mmol/L Calcium (8.4-10.2) mg/dL AST (5-40) units/L ALT (7-56) units/L Albumin (3.9-5) g/dL 09/03/17 09/03/17 09/04/17 Range/Units 20:29 23:02 04:00 Lymphocytes % (Manual) (13.4-35.0) % Nucleated RBC % (0.0-0.9) % Lymphocytes # (Manual) (1.2-5.4) K/mm3 PT (12.2-14.9) Sec. INR (0.87-1.13) Chloride (98-107) mmol/L BUN (9-20) mg/dL Glucose (75-100) mg/dL POC Glucose 156 H (70-105) Lactic Acid 9.00 H* 3.00 H* (0.7-2.0) mmol/L Calcium (8.4-10.2) mg/dL AST (5-40) units/L ALT (7-56) units/L Albumin (3.9-5) g/dL 09/04/17 09/04/17 Range/Units 04:00 04:00 Lymphocytes % (Manual) (13.4-35.0) % Nucleated RBC % (0.0-0.9) % Lymphocytes # (Manual) (1.2-5.4) K/mm3 PT 28.4 H (12.2-14.9) Sec. INR 2.47 H (0.87-1.13) Chloride 110.1 H (98-107) mmol/L BUN 29 H (9-20) mg/dL Glucose 192 H (75-100) mg/dL POC Glucose (70-105) Lactic Acid (0.7-2.0) mmol/L Calcium 6.8 L (8.4-10.2) mg/dL AST 361 H (5-40) units/L ALT 315 H (7-56) units/L Albumin 1.6 L (3.9-5) g/dL
[2017-09-04 09:46] LABS: Hemoglobin 9.6 gm/dl (11.8-15.2); Mean Corpuscular HGB Conc 33 % (32-34); Mean Corpuscular Hemoglobin 28 pg (28-32); Mean Corpuscular Volume 84 fl (84-94); Platelet Count 124 K/mm3 (140-440); Red Blood Count 3.44 M/mm3 (3.65-5.03); Red Cell Distribution Width 17.4 % (13.2-15.2)
[2017-09-04] MEDS: PEPCID IV SCH ×2 (09:50→22:49)
[2017-09-04] MEDS: DIFLUCAN 200 MG/100 ML BAG IV SCH (09:51)
[2017-09-04] MEDS: LOVENOX SUB-Q SCH (09:51)
[2017-09-04 10:34] LABS: Band Neutrophils # (Manual) 0.3 K/mm3; Basophils % (Manual) 0 % (0.0-1.8); Eosinophils % (Manual) 0 % (0.0-4.3); Total Cells Counted 100
[2017-09-04 10:36] LABS: Anisocytosis 1+; Dohle Bodies Few
[2017-09-04 10:37] LABS: Platelet Estimate Cons
[2017-09-04] MEDS: NEO-SYNEPHRINE 100 MG in NACL 0.9% 90 ML IV SCH (13:40)
[2017-09-04] MEDS: Vasostrict 20 UNIT in NACL 0.9% 100 ML IV SCH (14:56)
--- NOTE | 2017-09-04 17:02 | Progress Note ---
Assessment and Plan Imp: 1. E.coli bacteremia of ? source 2. Bilateral pneumonia 3. Pleural effusions, more likely volume-related but could be due to #2 4. Acute respiratory failure, hypoxia 5. Severe sepsis with septic shock 6. Lactic acidosis 7. HIV/AIDS, poorly compliant with HAART for past > 1 year per [facility]; last CD4 per [facility] was 133 8. Dilated CMP 9. R/o DIC Rec: 1. ABX per ID; E.coli is sens to carbapenems; f/u urine culture 2. Reduce IVFs as CXR shows worsening volume overload; can bolus prn 3. Start Phenylephrine; wean off Dopamine; goal MAP > 65 4. Trend lactate [id number] 5. Too hypoxic for bronch/BAL 6. Bedside abdominal xray and abd US to include evaluation of the kidneys/liver/ biliary system; check lipase 7. GI and DVT PPx 8. Increased sedation; cont. current vent settings (PIP 23 or less) pending repeat ABG which has been ordered 9. Check fibrinogen 10. Prognosis is very poor due to MOSF Plan of care reviewed with sister at bedside, she understands/agrees CCT 31 minutes Subjective Date of service: 09/04/17 Principal diagnosis: Septic shock, acute hypoxemic respiratory failure, [place] Interval history: No events. Awake, alert, agitated earlier, but appropriate. On FiO2 of 100% and PEEP of 10. On Dopamine 2mcg, Levophed 30mcg, and Vasopressin 0.03 units. He denies abd pain. Active Medications Acetaminophen (Tylenol) 650 mg OR Q4H PRN PRN Reason: Pain, Mild (1-3) Last Admin: 09/02/17 22:03 Dose: 650 mg Acetaminophen (Tylenol) 650 mg FEEDTUBE Q6H PRN PRN Reason: Pain, Mild (1-3) Al Hydrox/Mg Hydrox/Simethicone (Alum-Mag Hydrox-Simeth [phone]/5ml) 30 ml PO Q4H PRN PRN Reason: Indigestion Albuterol (Proventil) 2.5 mg IH Q3HRT PRN PRN Reason: Shortness Of Breath Albuterol/Ipratropium (Duoneb *Not For Prn Use*) 1 ampul IH Q4HRT [facility] Last Admin: 09/04/17 16:21 Dose: 1 ampul Bisacodyl (Dulcolax) 10 mg OR QDAY PRN PRN Reason: constipation unrelieved by MOM Dextrose (D50w (25gm) Syringe) 50 ml IV PRN PRN PRN Reason: Hypoglycemia Last Admin: 09/02/17 23:42 Dose: 50 ml Enoxaparin Sodium (Lovenox) 40 mg SUB-Q QDAY [facility] Last Admin: 09/04/17 09:51 Dose: 40 mg Famotidine (Pepcid) 20 mg IV BID [facility] Last Admin: 09/04/17 09:50 Dose: 20 mg Hydrophilic Ointment (Vaseline Lip Therapy) 1 applic TP Q2HR PRN PRN Reason: Dry Lips Last Admin: 09/02/17 10:15 Dose: 1 applic Fentanyl Citrate (Fentanyl Drip Premix) 2,000 mcg in 100 mls @ 2.903 mls/hr IV TITR STEPHANIE; 1 MCG/KG/HR PRN Reason: Protocol Last Titration: 09/04/17 13:21 Dose: 1 mcg/kg/hr, 2.903 mls/hr Vancomycin HCl 750 mg/ Sodium (Chloride) 257.5 mls @ 166.667 mls/hr IV Q12H [facility] Last Admin: 09/04/17 08:07 Dose: 166.667 mls/hr Vasopressin 20 unit/ Sodium (Chloride) 101 mls @ 9.09 mls/hr IV TITR STEPHANIE; 0.03 UNITS/MIN PRN Reason: Protocol Last Admin: 09/04/17 14:56 Dose: 0.03 units/min, 9.09 mls/hr Dopamine HCl/Dextrose (Intropin Drip 800 Mg/D5w 250 Ml) 800 mg in 250 mls @ 2.177 mls/hr IV TITR STEPHANIE; 2 MCG/KG/MIN PRN Reason: Protocol Last Titration: 09/04/17 14:39 Dose: 0 mcg/kg/min, 0 mls/hr Meropenem 1,000 mg/ Sodium (Chloride) 100 mls @ 100 mls/hr IV Q8H STEPHANIE PRN Reason: Protocol Last Admin: 09/04/17 15:45 Dose: 100 mls/hr Fluconazole (Diflucan) 200 mg in 100 mls @ 100 mls/hr IV Q24HR STEPHANIE PRN Reason: Protocol Last Admin: 09/04/17 09:51 Dose: 100 mls/hr Norepinephrine 8 mg/ Sodium (Chloride) 250 mls @ 3.75 mls/hr IV TITR STEPHANIE; 2 MCG /MIN PRN Reason: Protocol Last Admin: 09/04/17 14:25 Dose: 30 mcg/min, 56.25 mls/hr Sodium Bicarbonate 150 meq/ (Dextrose) 1,150 mls @ 50 mls/hr IV DIRECT STEPHANIE Last Infusion: 09/04/17 12:22 Dose: 50 mls/hr Phenylephrine HCl 100 mg/ (Sodium Chloride) 100 mls @ 3 mls/hr IV TITR STEPHANIE; 50 MCG/MIN PRN Reason: Protocol Last Titration: 09/04/17 14:39 Dose: 100 mcg/min, 6 mls/hr Insulin Aspart (Novolog) 0 units SUB-Q Q6HR STEPHANIE PRN Reason: Protocol Last Admin: 09/04/17 12:22 Dose: Not Given Multi-Ingred Cream/Lotion/Oil/Oint (Artificial Tears Ophth Oint) 1 applic OU Q4HR PRN PRN Reason: Dry Eye(s) Naloxone HCl (Narcan 0.4 Mg/1 Ml) 0.1 mg IV Q2MIN PRN PRN Reason: Res Rate </= 8 or 02 SAT < 92% Vancomycin HCl (Vancomycin Pharmacy To Dose) 1 each IV PKCONSULT STEPHANIE PRN Reason: Protocol Objective Vital Signs - 12hr 09/04/17 09/04/17 09/04/17 05:00 05:09 05:10 Temperature Pulse Rate 113 H 90 Pulse Rate [ 91 H Anterior Bilateral Throughout] Pulse Rate [ Apical] Respiratory 17 19 Rate Respiratory 15 Rate [Anterior Bilateral Throughout] Blood Pressure 91/42 91/42 O2 Sat by Pulse 95 84 Oximetry 09/04/17 09/04/17 09/04/17 05:20 05:30 05:40 Temperature Pulse Rate 111 H 145 H 126 H Pulse Rate [ Anterior Bilateral Throughout] Pulse Rate [ Apical] Respiratory 19 17 17 Rate Respiratory Rate [Anterior Bilateral Throughout] Blood Pressure 69/25 134/66 134/66 O2 Sat by Pulse 83 L 83 L 89 Oximetry 09/04/17 09/04/17 09/04/17 05:50 06:00 06:10 Temperature Pulse Rate 116 H 115 H 115 H Pulse Rate [ Anterior Bilateral Throughout] Pulse Rate [ Apical] Respiratory 16 17 16 Rate Respiratory Rate [Anterior Bilateral Throughout] Blood Pressure 73/14 89/46 89/46 O2 Sat by Pulse 95 90 95 Oximetry 09/04/17 09/04/17 09/04/17 06:20 06:30 06:40 Temperature Pulse Rate 114 H 116 H 118 H Pulse Rate [ Anterior Bilateral Throughout] Pulse Rate [ Apical] Respiratory 16 16 17 Rate Respiratory Rate [Anterior Bilateral Throughout] Blood Pressure 80/39 85/40 85/40 O2 Sat by Pulse 96 95 91 Oximetry 09/04/17 09/04/17 09/04/17 06:50 07:00 07:10 Temperature Pulse Rate 123 H 118 H 124 H Pulse Rate [ Anterior Bilateral Throughout] Pulse Rate [ Apical] Respiratory 17 17 16 Rate Respiratory Rate [Anterior Bilateral Throughout] Blood Pressure 146/79 79/17 79/17 O2 Sat by Pulse 89 93 92 Oximetry 09/04/17 09/04/17 09/04/17 07:20 07:30 07:40 Temperature Pulse Rate 124 H 123 H 121 H Pulse Rate [ Anterior Bilateral Throughout] Pulse Rate [ Apical] Respiratory 14 19 16 Rate Respiratory Rate [Anterior Bilateral Throughout] Blood Pressure 90/37 99/30 99/30 O2 Sat by Pulse 92 96 96 Oximetry 09/04/17 09/04/17 09/04/17 07:50 08:00 08:10 Temperature 99.8 F H Pulse Rate 117 H 117 H 118 H Pulse Rate [ 117 H Anterior Bilateral Throughout] Pulse Rate [ 112 H Apical] Respiratory 16 15 14 Rate Respiratory 16 Rate [Anterior Bilateral Throughout] Blood Pressure 94/28 87/31 87/31 O2 Sat by Pulse 93 93 91 Oximetry 09/04/17 09/04/17 09/04/17 08:12 08:20 08:23 Temperature Pulse Rate 119 H 116 H Pulse Rate [ 118 H Anterior Bilateral Throughout] Pulse Rate [ Apical] Respiratory 17 Rate Respiratory 16 Rate [Anterior Bilateral Throughout] Blood Pressure 76/44 86/45 O2 Sat by Pulse 92 96 Oximetry 09/04/17 09/04/17 09/04/17 08:30 08:40 08:50 Temperature Pulse Rate 112 H 111 H 112 H Pulse Rate [ Anterior Bilateral Throughout] Pulse Rate [ Apical] Respiratory 16 17 21 Rate Respiratory Rate [Anterior Bilateral Throughout] Blood Pressure 94/50 94/50 94/50 O2 Sat by Pulse 97 95 90 Oximetry 09/04/17 09/04/1709/04/18 09:00 09:10 09:20 Temperature Pulse Rate 115 H 114 H 113 H Pulse Rate [ Anterior Bilateral Throughout] Pulse Rate [ Apical] Respiratory 19 19 19 Rate Respiratory Rate [Anterior Bilateral Throughout] Blood Pressure 117/36 117/36 117/36 O2 Sat by Pulse 90 91 91 Oximetry 09/04/17 09/04/17 09/04/17 09:30 09:40 09:50 Temperature Pulse Rate 114 H 113 H 113 H Pulse Rate [ Anterior Bilateral Throughout] Pulse Rate [ Apical] Respiratory 18 18 18 Rate Respiratory Rate [Anterior Bilateral Throughout] Blood Pressure 109/64 109/64 109/64 O2 Sat by Pulse 95 98 97 Oximetry 09/04/17 09/04/17 09/04/17 10:00 10:10 10:20 Temperature Pulse Rate 115 H 114 H 114 H Pulse Rate [ Anterior Bilateral Throughout] Pulse Rate [ Apical] Respiratory 17 19 20 Rate Respiratory Rate [Anterior Bilateral Throughout] Blood Pressure 108/70 108/70 108/70 O2 Sat by Pulse 96 99 100 Oximetry 09/04/17 09/04/17 09/04/17 10:30 10:40 10:50 Temperature Pulse Rate 111 H 115 H 108 H Pulse Rate [ Anterior Bilateral Throughout] Pulse Rate [ Apical] Respiratory 19 20 21 Rate Respiratory Rate [Anterior Bilateral Throughout] Blood Pressure 122/56 122/56 122/56 O2 Sat by Pulse 95 97 98 Oximetry 09/04/17 09/04/17 09/04/17 11:00 11:10 11:20 Temperature Pulse Rate 112 H 108 H 119 H Pulse Rate [ Anterior Bilateral Throughout] Pulse Rate [ Apical] Respiratory 22 22 30 H Rate Respiratory Rate [Anterior Bilateral Throughout] Blood Pressure 100/60 100/60 100/60 O2 Sat by Pulse 96 92 94 Oximetry 09/04/17 09/04/17 09/04/17 11:30 11:40 11:50 Temperature Pulse Rate 110 H 113 H 115 H Pulse Rate [ Anterior Bilateral Throughout] Pulse Rate [ Apical] Respiratory 24 25 H 35 H Rate Respiratory Rate [Anterior Bilateral Throughout] Blood Pressure 96/57 96/57 96/57 O2 Sat by Pulse 92 91 93 Oximetry 09/04/17 09/04/17 09/04/17 12:00 12:10 12:20 Temperature 99.3 F Pulse Rate 111 H 112 H 113 H Pulse Rate [ Anterior Bilateral Throughout] Pulse Rate [ Apical] Respiratory 26 H 21 22 Rate Respiratory Rate [Anterior Bilateral Throughout] Blood Pressure 108/62 108/62 96/22 O2 Sat by Pulse 93 96 95 Oximetry 09/04/17 09/04/17 09/04/17 12:30 12:40 12:50 Temperature Pulse Rate 107 H 112 H 108 H Pulse Rate [ Anterior Bilateral Throughout] Pulse Rate [ Apical] Respiratory 24 29 H 25 H Rate Respiratory Rate [Anterior Bilateral Throughout] Blood Pressure 101/54 101/54 108/52 O2 Sat by Pulse 96 96 97 Oximetry 09/04/17 09/04/17 09/04/17 13:00 13:10 13:20 Temperature Pulse Rate 126 H 128 H 115 H Pulse Rate [ Anterior Bilateral Throughout] Pulse Rate [ Apical] Respiratory 25 H 36 H 21 Rate Respiratory Rate [Anterior Bilateral Throughout] Blood Pressure 101/54 76/19 130/68 O2 Sat by Pulse 97 91 96 Oximetry 09/04/17 09/04/17 09/04/17 13:30 13:36 13:40 Temperature Pulse Rate 114 H 116 H 113 H Pulse Rate [ Anterior Bilateral Throughout] Pulse Rate [ Apical] Respiratory 22 25 H Rate Respiratory Rate [Anterior Bilateral Throughout] Blood Pressure 122/36 145/78 122/36 O2 Sat by Pulse 95 94 95 Oximetry 09/04/17 09/04/17 09/04/17 13:50 14:00 14:10 Temperature Pulse Rate 113 H 114 H 115 H Pulse Rate [ Anterior Bilateral Throughout] Pulse Rate [ Apical] Respiratory 20 19 25 H Rate Respiratory Rate [Anterior Bilateral Throughout] Blood Pressure 101/53 91/22 60/30 O2 Sat by Pulse 94 96 95 Oximetry 09/04/17 09/04/17 09/04/17 14:20 14:30 14:40 Temperature Pulse Rate 114 H 108 H 109 H Pulse Rate [ Anterior Bilateral Throughout] Pulse Rate [ Apical] Respiratory 24 26 H 24 Rate Respiratory Rate [Anterior Bilateral Throughout] Blood Pressure 119/65 82/35 82/35 O2 Sat by Pulse 96 96 97 Oximetry 09/04/17 09/04/17 09/04/17 14:50 15:00 15:10 Temperature Pulse Rate 107 H 121 H 109 H Pulse Rate [ Anterior Bilateral Throughout] Pulse Rate [ Apical] Respiratory 21 15 24 Rate Respiratory Rate [Anterior Bilateral Throughout] Blood Pressure 106/43 125/61 125/61 O2 Sat by Pulse 100 96 97 Oximetry 09/04/17 09/04/17 09/04/17 15:20 15:30 15:40 Temperature Pulse Rate 106 H 100 H 101 H Pulse Rate [ Anterior Bilateral Throughout] Pulse Rate [ Apical] Respiratory 26 H 21 33 H Rate Respiratory Rate [Anterior Bilateral Throughout] Blood Pressure 108/60 108/61 108/61 O2 Sat by Pulse 98 99 97 Oximetry 09/04/17 09/04/17 09/04/17 15:48 15:50 16:21 Temperature 102.2 F H Pulse Rate 104 H 111 H Pulse Rate [ 108 H Anterior Bilateral Throughout] Pulse Rate [ Apical] Respiratory 20 Rate Respiratory 16 Rate [Anterior Bilateral Throughout] Blood Pressure 121/63 107/52 O2 Sat by Pulse 98 100 Oximetry 09/04/17 16:51 Temperature Pulse Rate Pulse Rate [ 108 H Anterior Bilateral Throughout] Pulse Rate [ Apical] Respiratory Rate Respiratory 16 Rate [Anterior Bilateral Throughout] Blood Pressure O2 Sat by Pulse Oximetry Constitutional: alert, appears uncomfortable, other (critically ill on vent) Eyes: non-icteric ENT: other (orally intubated and sedated) Neck: supple Effort: mildly labored Ascultation: Bilateral: other (coarse BS bilaterally) Cardiovascular: regular rate and rhythm (sinus tach) Gastrointestinal: hypoactive bowel sounds, soft, non-tender, non-distended Extremities: no cyanosis, no edema, pink and warm Neurologic: normal mental status, non-focal exam, pupils equal and round, CN II- XII normal Psychiatric: anxious CBC and BMP: 09/04/17 09:00 09/04/17 04:00 ABG, PT/INR, D-dimer: ABG POC ABG pH 6.999 (7.35-7.45) L 09/03/17 05:55 POC ABG pCO2 42.2 (35-45) 09/03/17 05:55 POC ABG pO2 64 (80-105) L 09/03/17 05:55 POC ABG HCO3 10.4 09/03/17 05:55 POC ABG Total CO2 12 09/03/17 05:55 POC ABG O2 Sat 79 09/03/17 05:55 PT/INR, D-dimer PT 28.4 Sec. (12.2-14.9) H 09/04/17 04:00 INR 2.47 (0.87-1.13) H 09/04/17 04:00 D-Dimer 976.43 ng/mlDDU (0-234) H 09/01/17 23:27 Abnormal lab findings: Abnormal Labs 09/01/17 09/01/17 09/01/17 19:00 19:00 23:27 WBC RBC Hgb 10.9 L Hct 32.3 L MCV 83 L RDW 15.6 H Plt Count Jack % (Auto) Seg Neutrophils % Seg Neuts % (Manual) Lymphocytes % (Manual) Nucleated RBC % Seg Neutrophils # Man Lymphocytes # (Manual) PT INR D-Dimer 976.43 H POC ABG pH POC ABG pO2 Sodium 133 L Potassium Chloride 96.4 L Carbon Dioxide BUN Glucose 113 H POC Glucose Lactic Acid Calcium Phosphorus Magnesium AST ALT C-Reactive Protein Total Protein Albumin 09/01/17 09/02/17 09/02/17 23:27 01:25 07:36 WBC 2.2 L RBC 3.41 L Hgb 9.6 L Hct 28.9 L MCV RDW 16.0 H Plt Count Jack % (Auto) 12.6 H Seg Neutrophils % 70.4 H Seg Neuts % (Manual) Lymphocytes % (Manual) Nucleated RBC % Seg Neutrophils # Man 1.1 L Lymphocytes # (Manual) 0.6 L PT INR D-Dimer POC ABG pH POC ABG pO2 Sodium Potassium Chloride Carbon Dioxide BUN Glucose POC Glucose Lactic Acid 3.30 H* 4.10 H* Calcium Phosphorus Magnesium AST ALT C-Reactive Protein Total Protein Albumin 09/02/17 09/02/17 09/02/17 07:36 07:36 07:36 WBC RBC Hgb Hct MCV RDW Plt Count Jack % (Auto) Seg Neutrophils % Seg Neuts % (Manual) Lymphocytes % (Manual) Nucleated RBC % Seg Neutrophils # Man Lymphocytes # (Manual) PT 18.6 H INR 1.46 H D-Dimer POC ABG pH POC ABG pO2 Sodium 136 L Potassium Chloride Carbon Dioxide BUN Glucose POC Glucose Lactic Acid 3.80 H* Calcium Phosphorus Magnesium 1.20 L AST ALT C-Reactive Protein Total Protein 9.1 H Albumin 2.0 L 09/02/17 09/02/17 09/02/17 08:49 09:40 11:33 WBC RBC Hgb Hct MCV RDW Plt Count Jack % (Auto) Seg Neutrophils % Seg Neuts % (Manual) Lymphocytes % (Manual) Nucleated RBC % Seg Neutrophils # Man Lymphocytes # (Manual) PT INR D-Dimer POC ABG pH 7.313 L POC ABG pO2 116 H Sodium Potassium Chloride Carbon Dioxide BUN Glucose POC Glucose Lactic Acid 3.60 H* 5.20 H* Calcium Phosphorus Magnesium AST ALT C-Reactive Protein Total Protein Albumin 09/02/17 09/02/17 09/02/17 19:34 23:37 23:40 WBC RBC Hgb Hct MCV RDW Plt Count Jack % (Auto) Seg Neutrophils % Seg Neuts % (Manual) Lymphocytes % (Manual) Nucleated RBC % Seg Neutrophils # Man Lymphocytes # (Manual) PT INR D-Dimer POC ABG pH POC ABG pO2 Sodium Potassium Chloride Carbon Dioxide BUN Glucose 59 L POC Glucose 47 L Lactic Acid Calcium Phosphorus Magnesium AST ALT C-Reactive Protein 22.30 H Total Protein Albumin 09/03/17 09/03/17 09/03/17 00:06 05:15 05:15 WBC RBC 3.59 L Hgb 10.1 L Hct 31.5 L MCV RDW 18.0 H Plt Count Jack % (Auto) Seg Neutrophils % Seg Neuts % (Manual) Lymphocytes % (Manual) 1.0 L Nucleated RBC % 1.0 H Seg Neutrophils # Man Lymphocytes # (Manual) 0.1 L PT INR D-Dimer POC ABG pH POC ABG pO2 Sodium Potassium Chloride Carbon Dioxide BUN Glucose POC Glucose 144 H Lactic Acid 9.10 H* Calcium Phosphorus Magnesium AST ALT C-Reactive Protein Total Protein Albumin 09/03/17 09/03/17 09/03/17 05:15 05:55 07:40 WBC RBC Hgb Hct MCV RDW Plt Count Jack % (Auto) Seg Neutrophils % Seg Neuts % (Manual) Lymphocytes % (Manual) Nucleated RBC % Seg Neutrophils # Man Lymphocytes # (Manual) PT INR D-Dimer POC ABG pH 6.999 L POC ABG pO2 64 L Sodium Potassium 5.6 H D Chloride 108.4 H Carbon Dioxide 11 L D BUN 30 H Glucose 115 H POC Glucose Lactic Acid 9.20 H* Calcium 7.3 L D Phosphorus 6.40 H Magnesium AST 88 H ALT C-Reactive Protein Total Protein Albumin 1.7 L 09/03/17 09/03/17 09/03/17 09:55 12:03 13:17 WBC RBC Hgb Hct MCV RDW Plt Count Jack % (Auto) Seg Neutrophils % Seg Neuts % (Manual) Lymphocytes % (Manual) Nucleated RBC % Seg Neutrophils # Man Lymphocytes # (Manual) PT INR D-Dimer POC ABG pH POC ABG pO2 Sodium Potassium Chloride Carbon Dioxide BUN Glucose POC Glucose 155 H Lactic Acid 9.50 H* 9.90 H* Calcium Phosphorus Magnesium AST ALT C-Reactive Protein Total Protein Albumin 09/03/17 09/03/17 09/03/17 15:55 17:13 18:02 WBC RBC Hgb Hct MCV RDW Plt Count Jack % (Auto) Seg Neutrophils % Seg Neuts % (Manual) Lymphocytes % (Manual) Nucleated RBC % Seg Neutrophils # Man Lymphocytes # (Manual) PT INR D-Dimer POC ABG pH POC ABG pO2 Sodium Potassium Chloride Carbon Dioxide BUN Glucose POC Glucose 171 H Lactic Acid 9.60 H* 9.00 H* Calcium Phosphorus Magnesium AST ALT C-Reactive Protein Total Protein Albumin 09/03/17 09/03/17 09/04/17 20:29 23:02 04:00 WBC RBC Hgb Hct MCV RDW Plt Count Jack % (Auto) Seg Neutrophils % Seg Neuts % (Manual) Lymphocytes % (Manual) Nucleated RBC % Seg Neutrophils # Man Lymphocytes # (Manual) PT INR D-Dimer POC ABG pH POC ABG pO2 Sodium Potassium Chloride Carbon Dioxide BUN Glucose POC Glucose 156 H Lactic Acid 9.00 H* 3.00 H* Calcium Phosphorus Magnesium AST ALT C-Reactive Protein Total Protein Albumin 09/04/17 09/04/17 09/04/17 04:00 04:00 09:00 WBC RBC 3.44 L Hgb 9.6 L Hct 29.0 L MCV RDW 17.4 H Plt Count 124 L Jack % (Auto) Seg Neutrophils % Seg Neuts % (Manual) 91.0 H Lymphocytes % (Manual) 3.0 L Nucleated RBC % 2.0 H Seg Neutrophils # Man 9.9 H Lymphocytes # (Manual) 0.3 L PT 28.4 H INR 2.47 H D-Dimer POC ABG pH POC ABG pO2 Sodium Potassium Chloride 110.1 H Carbon Dioxide BUN 29 H Glucose 192 H POC Glucose Lactic Acid Calcium 6.8 L Phosphorus Magnesium AST 361 H ALT 315 H C-Reactive Protein Total Protein Albumin 1.6 L 09/04/17 09/04/17 09:00 12:00 WBC RBC Hgb Hct MCV RDW Plt Count Jack % (Auto) Seg Neutrophils % Seg Neuts % (Manual) Lymphocytes % (Manual) Nucleated RBC % Seg Neutrophils # Man Lymphocytes # (Manual) PT INR D-Dimer POC ABG pH POC ABG pO2 Sodium Potassium Chloride Carbon Dioxide BUN Glucose POC Glucose Lactic Acid 2.10 H* 3.40 H* Calcium Phosphorus Magnesium AST ALT C-Reactive Protein Total Protein Albumin Chest x-ray: report reviewed, image reviewed (increasing bibasilar densities/ effusions)
[2017-09-04] MEDS: TYLENOL FEEDTUBE PRN (18:02)
--- NOTE | 2017-09-04 18:36 | XRay Report ---
FINAL REPORT PROCEDURE: Abdomen. TECHNIQUE: Supine AP view. HISTORY: Sepsis, lactic acidosis. COMPARISON: No prior studies are available for comparison. FINDINGS: The bowel gas pattern is normal. A nasogastric tube enters the stomach. The soft tissues are unremarkable. The regional skeleton appears intact. IMPRESSION: No evidence of acute abdominal disease.
--- NOTE | 2017-09-04 19:39 | Progress Note ---
Assessment and Plan Assessment and plan: 52-year-old male presents to the emergency department with complaint of shortness of breath and some midsternal right-sided chest discomfort with inspiration that started earlier this afternoon and radiates towards the back. The patient was just discharged from the [facility] a few days ago after spending some time therefore bilateral pneumonia. He is on Bactrim and just finished a course of antifungal medication for oral thrush. He denies any past medical history other than this pneumonia. He does not smoke or use illicit drugs. His physicians are through the [facility]. Patient was recently discharged from a 6 day hospital stay at the [facility]. He denies any leg swelling, nausea, vomiting or fever. * Septic shock due to underlying pneumonia currently on 3 pressors present on admission * Lactic acidosis from sepsis worsening - ? gut ischemia * Pneumonia bacteria - Ramón neg rods present on admission- * Gram Negative bacteremia * Thrombocytopenia evaluated for possible DIC * Hyperkalemia * HIV/AIDS poorly compliant with HAART therapy. Last CD4 count from [facility] was 133 * Anemia * Acute hypoxemic respiratory failure intubated 09/01/17 * Anemia of chronic disease * Hyponatremia Plan - Continue with iv hydration, Vanc and Meropenem per ID Hematology consult Per pulmonology unable to obtain bronchoscopy at this time as patient is still too hypoxic, UNstable Continue on mechanical ventilation Kayxalate when necessary Aggresive Bronchodilator Tx Eligibility Clerk Following Monitor CBC and electrolytes DVT GI prophylaxis with Lovenox and Pepcid discussed with Critical care physician Zeeshan bliss VTE prophylaxis?: Mechanical . No family at bedside The high probability of a clinically significant, sudden or life threatening deterioration of the [pulmonary, hematology] system(s) required my full and direct attention, intervention and personal management. The aggregate critical care time was [45] minutes. This time is in addition to time spent performing reported procedures but includes the following: [X] Data Review and interpretation [X] Patient assessment and monitoring of vital signs [X] Documentation [X] Medication orders and management History Interval history: Patient remains intubated and on 3 pressors. Seen and examined nurse at bedside. Hospitalist Physical - Physical exam Narrative exam: VITAL SIGNS: Reviewed. GENERAL: The patient appeared well nourished and normally developed. Vital signs as documented. HEAD: No signs of head trauma. EYES: Pupils are equal. EARS: Unable to assess MOUTH: ET tube in place NECK: No adenopathy, no JVD. CHEST: Chest with diminished breath sounds bilaterally. No wheezes, rales, or rhonchi. CARDIAC: Regular rate and rhythm. S1 and S2, without murmurs, gallops, or rubs. VASCULAR: Trace Edema. Peripheral pulses normal and equal in all extremities. ABDOMEN: Soft, without detectable tenderness. No sign of distention. No rebound or guarding, and no masses palpated. Bowel Sounds normal. MUSCULOSKELETAL: Good range of motion of all major joints. Extremities without clubbing, cyanosis or edema. NEUROLOGIC EXAM: Sedated and unable to assess PSYCHIATRIC: Unable to assess SKIN: No rash or lesions. - Constitutional Vitals: Temp Pulse Resp BP Pulse Ox 102.2 F H 105 H 24 107/46 97 09/04/17 15:48 09/04/17 18:00 09/04/17 18:00 09/04/17 18:00 09/04/17 18:00 General appearance: Present: no acute distress, well-nourished, other (intubated ) Results - Labs CBC & Chem 7: 09/04/17 09:00 09/04/17 04:00 Labs: Laboratory Last Values WBC 10.9 K/mm3 (4.5-11.0) 09/04/17 09:00 RBC 3.44 M/mm3 (3.65-5.03) L 09/04/17 09:00 Hgb 9.6 gm/dl (11.8-15.2) L 09/04/17 09:00 Hct 29.0 % (35.5-45.6) L 09/04/17 09:00 MCV 84 fl (84-94) 09/04/17 09:00 MCH 28 pg (28-32) 09/04/17 09:00 MCHC 33 % (32-34) 09/04/17 09:00 RDW 17.4 % (13.2-15.2) H 09/04/17 09:00 Plt Count 124 K/mm3 (140-440) L 09/04/17 09:00 [place] % (Auto) 12.6 % (0.0-7.3) H 09/02/17 07:36 Eos % (Auto) 0.3 % (0.0-4.3) 09/02/17 07:36 [place] # 0.4 K/mm3 (0.0-0.8) 09/02/17 07:36 Eos # 0.0 K/mm3 (0.0-0.4) 18 07:36 Baso # 0.0 K/mm3 (0.0-0.1) 18 07:36 Add Manual Diff Complete 09/04/17 09:00 Total Counted 100 09/04/17 09:00 Seg Neutrophils % 70.4 % (40.0-70.0) H 18 07:36 Seg Neuts % (Manual) 91.0 % (40.0-70.0) H 09/04/17 09:00 Band Neutrophils % 3.0 % 09/04/17 09:00 Lymphocytes % (Manual) 3.0 % (13.4-35.0) L 09/04/17 09:00 Reactive Lymphs % (Man) 0 % 09/04/17 09:00 Monocytes % (Manual) 3.0 % (0.0-7.3) 09/04/17 09:00 Eosinophils % (Manual) 0 % (0.0-4.3) 09/04/17 09:00 Basophils % (Manual) 0 % (0.0-1.8) 09/04/17 09:00 Metamyelocytes % 0 % 09/04/17 09:00 Myelocytes % 0 % 09/04/17 09:00 Promyelocytes % 0 % 09/04/17 09:00 Blast Cells % 0 % 09/04/17 09:00 Nucleated RBC % 2.0 % (0.0-0.9) H 09/04/17 09:00 Seg Neutrophils # 2.1 K/mm3 (1.8-7.7) 09/02/17 07:36 Seg Neutrophils # Man 9.9 K/mm3 (1.8-7.7) H 09/04/17 09:00 Band Neutrophils # 0.3 K/mm3 09/04/17 09:00 Lymphocytes # (Manual) 0.3 K/mm3 (1.2-5.4) L 09/04/17 09:00 Abs React Lymphs (Man) 0.0 K/mm3 09/04/17 09:00 Monocytes # (Manual) 0.3 K/mm3 (0.0-0.8) 09/04/17 09:00 Eosinophils # (Manual) 0.0 K/mm3 (0.0-0.4) 09/04/17 09:00 Basophils # (Manual) 0.0 K/mm3 (0.0-0.1) 09/04/17 09:00 Metamyelocytes # 0.0 K/mm3 09/04/17 09:00 Myelocytes # 0.0 K/mm3 09/04/17 09:00 Promyelocytes # 0.0 K/mm3 09/04/17 09:00 Blast Cells # 0.0 K/mm3 09/04/17 09:00 WBC Morphology Not Reportable 09/04/17 09:00 Hypersegmented Neuts Not Reportable 09/04/17 09:00 Hyposegmented Neuts Not Reportable 09/04/17 09:00 Hypogranular Neuts Not Reportable 09/04/17 09:00 Smudge Cells Not Reportable 09/04/17 09:00 Toxic Granulation Not Reportable 09/04/17 09:00 Toxic Vacuolation Not Reportable 09/04/17 09:00 Dohle Bodies Few 09/04/17 09:00 Pelger-Huet Anomaly Not Reportable 09/04/17 09:00 Efren Rods Not Reportable 09/04/17 09:00 Platelet Estimate Cons 09/04/17 09:00 Clumped Platelets Not Reportable 09/04/17 09:00 Plt Clumps, EDTA Not Reportable 09/04/17 09:00 Large Platelets Not Reportable 09/04/17 09:00 Giant Platelets Not Reportable 09/04/17 09:00 Platelet Satelliting Not Reportable 09/04/17 09:00 Plt Morphology Comment Not Reportable 09/04/17 09:00 RBC Morphology Not Reportable 09/04/17 09:00 Dimorphic RBCs Not Reportable 09/04/17 09:00 Polychromasia Not Reportable 09/04/17 09:00 Hypochromasia Not Reportable 09/04/17 09:00 Poikilocytosis Not Reportable 09/04/17 09:00 Anisocytosis 1+ 09/04/17 09:00 Microcytosis Not Reportable 09/04/17 09:00 Macrocytosis Not Reportable 09/04/17 09:00 Spherocytes Not Reportable 09/04/17 09:00 Pappenheimer Bodies Not Reportable 09/04/17 09:00 Sickle Cells Not Reportable 09/04/17 09:00 Target Cells Not Reportable 09/04/17 09:00 Tear Drop Cells Not Reportable 09/04/17 09:00 Ovalocytes Not Reportable 09/04/17 09:00 Helmet Cells Not Reportable 09/04/17 09:00 Mai-Rhododendron Bodies Not Reportable 09/04/17 09:00 [place] Rings Not Reportable 09/04/17 09:00 [place] Cells Not Reportable 09/04/17 09:00 Bite Cells Not Reportable 09/04/17 09:00 Crenated Cell Not Reportable 09/04/17 09:00 Elliptocytes Not Reportable 09/04/17 09:00 Acanthocytes (Spur) Not Reportable 09/04/17 09:00 Rouleaux Not Reportable 09/04/17 09:00 Hemoglobin C Crystals Not Reportable 09/04/17 09:00 Schistocytes Not Reportable 09/04/17 09:00 Malaria parasites Not Reportable 09/04/17 09:00 Scott Bodies Not Reportable 09/04/17 09:00 Hem Pathologist Commnt No 09/04/17 09:00 PT 28.4 Sec. (12.2-14.9) H 09/04/17 04:00 INR 2.47 (0.87-1.13) H 09/04/17 04:00 APTT 35.4 Sec. (24.2-36.6) 09/02/17 07:36 Fibrinogen 611 mg/dl (211-480) H 09/04/17 17:23 D-Dimer 976.43 ng/mlDDU (0-234) H 09/01/17 23:27 POC ABG pH 6.999 (7.35-7.45) L 09/03/17 05:55 POC ABG pCO2 42.2 (35-45) 09/03/17 05:55 POC ABG pO2 64 (80-105) L 09/03/17 05:55 POC ABG HCO3 10.4 09/03/17 05:55 POC ABG Total CO2 12 09/03/17 05:55 POC ABG O2 Sat 79 09/03/17 05:55 POC ABG Base Excess -21 09/03/17 05:55 FiO2 60 % 09/03/17 05:55 Sodium 144 mmol/L (137-145) 09/04/17 04:00 Potassium 4.5 mmol/L (3.6-5.0) 09/04/17 04:00 Chloride 110.1 mmol/L (98-107) H 09/04/17 04:00 Carbon Dioxide 23 mmol/L (22-30) D 09/04/17 04:00 Anion Gap 15 mmol/L 09/04/17 04:00 BUN 29 mg/dL (9-20) H 09/04/17 04:00 Creatinine 1.1 mg/dL (0.8-1.5) 09/04/17 04:00 Estimated GFR > 60 ml/min 09/04/17 04:00 BUN/Creatinine Ratio 26 % 09/04/17 04:00 Glucose 192 mg/dL (75-100) H 09/04/17 04:00 POC Glucose 107 (70-105) H 09/04/17 17:47 Lactic Acid 3.40 mmol/L (0.7-2.0) H* 09/04/17 12:00 Calcium 6.8 mg/dL (8.4-10.2) L 09/04/17 04:00 Phosphorus 6.40 mg/dL (2.5-4.5) H 09/03/17 05:15 Magnesium 1.80 mg/dL (1.7-2.3) 09/03/17 05:15 Total Bilirubin 0.50 mg/dL (0.1-1.2) 09/04/17 04:00 AST 361 units/L (5-40) H 09/04/17 04:00 ALT 315 units/L (7-56) H 09/04/17 04:00 Alkaline Phosphatase 43 units/L (35-129) 09/04/17 04:00 Troponin T < 0.010 ng/mL (0.00-0.029) 09/01/17 23:27 C-Reactive Protein 22.30 mg/dL (0.00-1.30) H 09/02/17 19:34 NT-Pro-B Natriuret Pep 315.2 pg/mL (0-900) 09/01/17 23:27 Total Protein 7.4 g/dL (6.3-8.2) 09/04/17 04:00 Albumin 1.6 g/dL (3.9-5) L 09/04/17 04:00 Albumin/Globulin Ratio 0.3 % 09/04/17 04:00 Lipase 12 units/L (13-60) L 09/04/17 17:23 Vancomycin Trough 15.3 ug/mL (5.0-20.0) 09/04/17 17:23 HIV 1&2 Antibody Rapid Reactive (Non React) 09/02/17 19:34 HIV P24 Antigen Non react (Non React) 09/02/17 19:34
[2017-09-05] MEDS: MERREM 1,000 MG in NACL 0.9% 100 ML IV SCH ×3 (00:10→16:18)
[2017-09-05] MEDS: NEO-SYNEPHRINE 100 MG in NACL 0.9% 90 ML IV SCH ×2 (00:21→00:59)
[2017-09-05] MEDS: Vasostrict 20 UNIT in NACL 0.9% 100 ML IV SCH ×3 (00:22→12:50)
[2017-09-05] MEDS: NOVOLOG SUB-Q SCH ×4 (00:23→18:34)
--- NOTE | 2017-09-05 00:52 | Ultrasound Report ---
FINAL REPORT PROCEDURE: US ABDOMEN COMPLETE TECHNIQUE: Real-time sonography in multiple planes of the abdomen was performed with image documentation. CPT 01501 HISTORY: Sepsis, Elevated LFTs COMPARISON: No prior studies are available for comparison. FINDINGS: Liver: There are numerous echogenic liver lesions measuring up to 2.4 centimeters suspicious for malignancy.. Gallbladder: There is gallbladder sludge. There is no wall thickening or pericholecystic fluid.. Intrahepatic bile ducts: Normal caliber . Extrahepatic bile ducts: Normal caliber. Pancreas: Obscured by bowel gas.. Aorta: Visualized portions appear normal. IVC: Visualized portions appear normal. RIGHT kidney: Normal echotexture. No focal renal mass, calculus, or hydronephrosis. Length: 11.6cm. LEFT kidney: Normal echotexture. No focal renal mass, calculus, or hydronephrosis . Length: 10.9cm. Spleen: Normal size and echotexture. No focal lesions. Intraperitoneal fluid: There is moderate ascites.. Other: Possible partial portal vein thrombosis.. IMPRESSION: There are numerous liver lesions suspicious for metastatic malignancy. There is no cholelithiasis. There is no cholecystitis. There is gallbladder sludge. There is moderate ascites. There is possible partial portal vein thrombosis..
[2017-09-05] MEDS: LEVOPHED 8 MG in NACL 0.9% 250ML 242 ML IV SCH ×3 (02:33→22:40)
--- NOTE | 2017-09-05 03:34 | XRay Report ---
FINAL REPORT EXAM: XR CHEST 1V AP HISTORY: follow up respiratory failure TECHNIQUE: A portable semi-erect view of the chest was obtained and compared to the study of 09/04/2017. FINDINGS: The ET tube, NG tube and right transjugular venous line appear in good position. The heart is [id number] enlarged. There is extensive airspace disease throughout both lungs which show slight worsening since the previous study. There is a right-sided effusion. There are EKG leads overlying the chest wall. The bones and soft tissues otherwise are unchanged. IMPRESSION: Extensive and worsening bilateral airspace disease in both lungs with right-sided effusion. Satisfactory position of all tubes and lines.
[2017-09-05] MEDS: DUONEB *Not for PRN Use IH SCH ×6 (03:35→23:36)
[2017-09-05] MEDS: VANCOMYCIN 750 MG in NACL 0.9% 250ML 250 ML IV SCH ×2 (06:09→18:35)
[2017-09-05 07:42] LABS: Albumin 1.4 g/dL (3.9-5); BUN/Creatinine Ratio 28; Blood Urea Nitrogen 31 mg/dL (9-20); Calcium 7.7 mg/dL (8.4-10.2); Hemolysis Index 16
[2017-09-05 07:56] LABS: Alanine Aminotransferase 898 units/L (7-56)
[2017-09-05] MEDS: fentaNYL DRIP Premix 2,000 MCG/100 ML BAG IV SCH ×2 (08:17→20:32)
--- NOTE | 2017-09-05 09:10 | Progress Note ---
Assessment and Plan 52-year-old male presents to the emergency department with complaint of shortness of breath and some midsternal right-sided chest discomfort with inspiration that started earlier this afternoon and radiates towards the back. The patient was just discharged from the [facility] a few days ago after spending some time therefore bilateral pneumonia. He is on Bactrim and just finished a course of antifungal medication for oral thrush. He denies any past medical history other than this pneumonia. He does not smoke or use illicit drugs. His physicians are through the [facility]. Patient was recently discharged from a 6 day hospital stay at the [facility]. He denies any leg swelling, nausea, vomiting or fever. * Septic shock due to underlying pneumonia currently on two pressors * Lactic acidosis from sepsis worsening - ? gut ischemia * Pneumonia bacteria - Ramón neg rods * Gram Negative bacteremia * Hyperkalemia * Anemia * Acute hypoxemic respiratory failure intubated 09/01/17 * Anemia of chronic disease * Hyponatremia * Possilbe metastsit liver disease * Portal vein thrombosis Plan - Continue with iv hydration, Vanc and Meropenem per ID Continue on mechanical ventilation Kayxalate Aggresive Bronchodilator Tx Grounds And Nursery Specialist Following Monitor CBC and electrolytes DVT GI prophylaxis with Lovenox and Pepcid discussed with Critical care physician VTE prophylaxis?: Chemical, Mechanical Subjective Date of service: 09/05/17 Principal diagnosis: Septic shock, acute hypoxemic respiratory failure, [place] Interval history: Remain intubated. Still hypotensive. Maxed out on two pressors. Discussed with pt's nurse. Reviewed laboratory and radiological data Objective - Exam Narrative Exam: Constitutional: Well-nourished well-developed. Intubated. In no distress Head: Normocephalic atraumatic Eyes: Pupils are equal round and reactive to light Nose: No enlarged turbinates, no septal deviation. Mouth: Moist mucous membranes. Neck: Supple no thyromegaly. No bruit. No JVD Heart: Regular rate and rhythm, S1-S2 abnormal. No rubs murmurs or gallop Lungs: Decreased breath sounds bilaterally. no rales or rhonchi Abdomen: Soft, nontender. Bowel sound are present. Extremities: No edema no cyanosis and no clubbing. Neuro: Intubated and sedated. Skin: No rashes no hyperemic spots Psychiatry: Intubated and sedated. - Constitutional Vitals: Vital Signs - 12hr 09/04/17 09/04/17 09/04/17 21:10 21:20 21:30 Temperature Pulse Rate 109 H 107 H 107 H Pulse Rate [ Anterior Bilateral Throughout] Respiratory 16 19 20 Rate Respiratory Rate [Anterior Bilateral Throughout] Blood Pressure 122/53 110/46 117/49 O2 Sat by Pulse 97 99 97 Oximetry 09/04/17 09/04/17 09/04/17 21:40 21:50 22:00 Temperature Pulse Rate 109 H 108 H 106 H Pulse Rate [ Anterior Bilateral Throughout] Respiratory 26 H 22 20 Rate Respiratory Rate [Anterior Bilateral Throughout] Blood Pressure 110/46 111/48 103/48 O2 Sat by Pulse 90 92 91 Oximetry 09/04/17 09/04/17 09/04/17 22:10 22:20 22:30 Temperature Pulse Rate 112 H 106 H 107 H Pulse Rate [ Anterior Bilateral Throughout] Respiratory 21 16 16 Rate Respiratory Rate [Anterior Bilateral Throughout] Blood Pressure 103/48 94/57 95/57 O2 Sat by Pulse 89 89 96 Oximetry 09/04/17 09/04/17 09/04/17 22:40 22:50 23:00 Temperature Pulse Rate 108 H 99 H 105 H Pulse Rate [ Anterior Bilateral Throughout] Respiratory 28 H 21 28 H Rate Respiratory Rate [Anterior Bilateral Throughout] Blood Pressure 95/57 93/56 93/56 O2 Sat by Pulse 92 92 90 Oximetry 09/04/17 09/04/17 09/04/17 23:10 23:20 23:22 Temperature Pulse Rate 107 H 108 H 109 H Pulse Rate [ Anterior Bilateral Throughout] Respiratory 24 19 25 H Rate Respiratory Rate [Anterior Bilateral Throughout] Blood Pressure 128/57 116/71 116/71 O2 Sat by Pulse 91 90 90 Oximetry 09/04/17 09/04/17 09/04/17 23:28 23:30 23:31 Temperature Pulse Rate 110 H 110 H Pulse Rate [ 106 H Anterior Bilateral Throughout] Respiratory 17 Rate Respiratory 21 Rate [Anterior Bilateral Throughout] Blood Pressure 116/71 109/65 O2 Sat by Pulse 91 93 Oximetry 09/04/17 09/04/17 09/05/17 23:45 23:46 00:00 Temperature 99.7 F H Pulse Rate 108 H 106 H Pulse Rate [ 108 H Anterior Bilateral Throughout] Respiratory 16 20 Rate Respiratory 21 Rate [Anterior Bilateral Throughout] Blood Pressure 113/63 106/64 O2 Sat by Pulse 98 100 Oximetry 09/05/17 09/05/17 09/05/17 00:15 00:30 00:45 Temperature Pulse Rate 109 H 107 H 107 H Pulse Rate [ Anterior Bilateral Throughout] Respiratory 18 20 21 Rate Respiratory Rate [Anterior Bilateral Throughout] Blood Pressure 107/53 116/52 105/64 O2 Sat by Pulse 100 100 100 Oximetry 09/05/17 09/05/17 09/05/17 01:00 01:15 01:30 Temperature Pulse Rate 108 H 105 H 104 H Pulse Rate [ Anterior Bilateral Throughout] Respiratory 22 19 20 Rate Respiratory Rate [Anterior Bilateral Throughout] Blood Pressure 111/60 120/62 108/39 O2 Sat by Pulse 95 96 99 Oximetry 09/05/17 09/05/17 09/05/17 01:45 02:00 02:15 Temperature Pulse Rate 104 H 105 H 105 H Pulse Rate [ Anterior Bilateral Throughout] Respiratory 19 22 20 Rate Respiratory Rate [Anterior Bilateral Throughout] Blood Pressure 106/70 108/61 110/63 O2 Sat by Pulse 97 100 99 Oximetry 09/05/17 09/05/17 09/05/17 02:30 02:45 03:00 Temperature Pulse Rate 103 H 108 H 104 H Pulse Rate [ Anterior Bilateral Throughout] Respiratory 22 22 22 Rate Respiratory Rate [Anterior Bilateral Throughout] Blood Pressure 109/56 114/66 99/58 O2 Sat by Pulse 97 95 96 Oximetry 09/05/17 09/05/17 09/05/17 03:15 03:30 03:36 Temperature Pulse Rate 109 H 106 H 105 H Pulse Rate [ Anterior Bilateral Throughout] Respiratory 18 19 Rate Respiratory Rate [Anterior Bilateral Throughout] Blood Pressure 103/64 101/62 101/62 O2 Sat by Pulse 96 99 98 Oximetry 09/05/17 09/05/17 09/05/17 03:39 03:45 03:54 Temperature Pulse Rate 104 H Pulse Rate [ 105 H 111 H Anterior Bilateral Throughout] Respiratory 17 Rate Respiratory 20 23 Rate [Anterior Bilateral Throughout] Blood Pressure 120/64 O2 Sat by Pulse 96 Oximetry 09/05/17 09/05/17 09/05/17 04:00 04:16 04:30 Temperature 100.2 F H Pulse Rate 102 H 121 H 110 H Pulse Rate [ Anterior Bilateral Throughout] Respiratory 23 19 20 Rate Respiratory Rate [Anterior Bilateral Throughout] Blood Pressure 120/64 120/64 135/82 O2 Sat by Pulse 99 88 90 Oximetry 09/05/17 09/05/17 09/05/17 04:45 05:00 05:15 Temperature Pulse Rate 108 H 110 H 107 H Pulse Rate [ Anterior Bilateral Throughout] Respiratory 17 17 22 Rate Respiratory Rate [Anterior Bilateral Throughout] Blood Pressure 113/71 117/63 107/66 O2 Sat by Pulse 91 94 93 Oximetry 09/05/17 09/05/17 09/05/17 05:30 05:45 06:00 Temperature Pulse Rate 106 H 107 H 113 H Pulse Rate [ Anterior Bilateral Throughout] Respiratory 19 19 18 Rate Respiratory Rate [Anterior Bilateral Throughout] Blood Pressure 108/60 105/61 105/61 O2 Sat by Pulse 92 92 92 Oximetry 09/05/17 09/05/17 09/05/17 06:15 06:30 06:45 Temperature Pulse Rate 106 H 105 H 103 H Pulse Rate [ Anterior Bilateral Throughout] Respiratory 22 21 22 Rate Respiratory Rate [Anterior Bilateral Throughout] Blood Pressure 118/72 124/72 124/69 O2 Sat by Pulse 100 100 99 Oximetry 09/05/17 09/05/17 09/05/17 07:00 07:15 07:30 Temperature Pulse Rate 104 H 105 H 103 H Pulse Rate [ Anterior Bilateral Throughout] Respiratory 22 22 22 Rate Respiratory Rate [Anterior Bilateral Throughout] Blood Pressure 131/71 126/75 112/78 O2 Sat by Pulse 100 100 100 Oximetry 09/05/17 09/05/17 09/05/17 07:45 08:00 08:15 Temperature 98.2 F Pulse Rate 104 H 103 H 104 H Pulse Rate [ Anterior Bilateral Throughout] Respiratory 22 22 22 Rate Respiratory Rate [Anterior Bilateral Throughout] Blood Pressure 136/73 118/73 119/74 O2 Sat by Pulse 100 100 100 Oximetry 09/05/17 09/05/17 09/05/17 08:30 08:44 08:55 Temperature Pulse Rate 102 H Pulse Rate [ 102 H 101 H Anterior Bilateral Throughout] Respiratory 22 Rate Respiratory 22 22 Rate [Anterior Bilateral Throughout] Blood Pressure 119/77 O2 Sat by Pulse 100 Oximetry - Labs CBC & Chem 7: 09/04/17 09:00 09/05/17 06:00 Labs: Abnormal lab results 09/04/17 09/04/17 09/04/17 Range/Units 09:00 09:00 12:00 RBC 3.44 L (3.65-5.03) M/mm3 Hgb 9.6 L (11.8-15.2) gm/dl Hct 29.0 L (35.5-45.6) % RDW 17.4 H (13.2-15.2) % Plt Count 124 L (140-440) K/mm3 Seg Neuts % (Manual) 91.0 H (40.0-70.0) % Lymphocytes % (Manual) 3.0 L (13.4-35.0) % Nucleated RBC % 2.0 H (0.0-0.9) % Seg Neutrophils # Man 9.9 H (1.8-7.7) K/mm3 Lymphocytes # (Manual) 0.3 L (1.2-5.4) K/mm3 Fibrinogen (211-480) mg/dl POC ABG pH (7.35-7.45) POC ABG pCO2 (35-45) POC ABG pO2 (80-105) Chloride (98-107) mmol/L BUN (9-20) mg/dL Glucose (75-100) mg/dL POC Glucose (70-105) Lactic Acid 2.10 H* 3.40 H* (0.7-2.0) mmol/L Calcium (8.4-10.2) mg/dL AST (5-40) units/L ALT (7-56) units/L Albumin (3.9-5) g/dL Lipase (13-60) units/L 09/04/17 09/04/17 09/04/17 Range/Units 17:23 17:23 17:47 RBC (3.65-5.03) M/mm3 Hgb (11.8-15.2) gm/dl Hct (35.5-45.6) % RDW (13.2-15.2) % Plt Count (140-440) K/mm3 Seg Neuts % (Manual) (40.0-70.0) % Lymphocytes % (Manual) (13.4-35.0) % Nucleated RBC % (0.0-0.9) % Seg Neutrophils # Man (1.8-7.7) K/mm3 Lymphocytes # (Manual) (1.2-5.4) K/mm3 Fibrinogen 611 H (211-480) mg/dl POC ABG pH (7.35-7.45) POC ABG pCO2 (35-45) POC ABG pO2 (80-105) Chloride (98-107) mmol/L BUN (9-20) mg/dL Glucose (75-100) mg/dL POC Glucose 107 H (70-105) Lactic Acid (0.7-2.0) mmol/L Calcium (8.4-10.2) mg/dL AST (5-40) units/L ALT (7-56) units/L Albumin (3.9-5) g/dL Lipase 12 L (13-60) units/L 09/04/17 09/04/17 09/05/17 Range/Units 22:30 23:08 05:31 RBC (3.65-5.03) M/mm3 Hgb (11.8-15.2) gm/dl Hct (35.5-45.6) % RDW (13.2-15.2) % Plt Count (140-440) K/mm3 Seg Neuts % (Manual) (40.0-70.0) % Lymphocytes % (Manual) (13.4-35.0) % Nucleated RBC % (0.0-0.9) % Seg Neutrophils # Man (1.8-7.7) K/mm3 Lymphocytes # (Manual) (1.2-5.4) K/mm3 Fibrinogen (211-480) mg/dl POC ABG pH 7.226 L (7.35-7.45) POC ABG pCO2 65.4 H (35-45) POC ABG pO2 61 L (80-105) Chloride (98-107) mmol/L BUN (9-20) mg/dL Glucose (75-100) mg/dL POC Glucose 109 H (70-105) Lactic Acid 4.70 H* (0.7-2.0) mmol/L Calcium (8.4-10.2) mg/dL AST (5-40) units/L ALT (7-56) units/L Albumin (3.9-5) g/dL Lipase (13-60) units/L 09/05/17 09/05/17 09/05/17 Range/Units 06:00 06:00 06:35 RBC (3.65-5.03) M/mm3 Hgb (11.8-15.2) gm/dl Hct (35.5-45.6) % RDW (13.2-15.2) % Plt Count (140-440) K/mm3 Seg Neuts % (Manual) (40.0-70.0) % Lymphocytes % (Manual) (13.4-35.0) % Nucleated RBC % (0.0-0.9) % Seg Neutrophils # Man (1.8-7.7) K/mm3 Lymphocytes # (Manual) (1.2-5.4) K/mm3 Fibrinogen (211-480) mg/dl POC ABG pH (7.35-7.45) POC ABG pCO2 (35-45) POC ABG pO2 (80-105) Chloride 112.7 H (98-107) mmol/L BUN 31 H (9-20) mg/dL Glucose 132 H (75-100) mg/dL POC Glucose 110 H (70-105) Lactic Acid 4.50 H* (0.7-2.0) mmol/L Calcium 7.7 L (8.4-10.2) mg/dL AST 834 H (5-40) units/L ALT 898 H (7-56) units/L Albumin 1.4 L (3.9-5) g/dL Lipase (13-60) units/L
[2017-09-05] MEDS: DIFLUCAN 200 MG/100 ML BAG IV SCH (10:29)
[2017-09-05] MEDS: LOVENOX SUB-Q SCH (10:30)
[2017-09-05] MEDS: PEPCID IV SCH ×2 (10:30→23:01)
--- NOTE | 2017-09-05 10:34 | Progress Note ---
Assessment and Plan Assessment: 1) Severe Sepsis with septic shock: Present on admission, manifested by fever, tachycardia, hypotension, increased lactate. Etiology most likely E coli septicemia. -CRP 22.30. -Lactic acid worsening. -Still on 3 pressors. -Persistently febrile. 2) E. coli septicemia: unknown source ? Pneumonia ? UTI (UCx negative) ? GI -Blood cultures 09/01 positive 4 of 4 bottles -Repeat Blood cultures 09/04 pending -TTE 09/02 no vegetations. 3) Bilateral pneumonia: recently treated at [facility] ? -Tracheal asp with normal fiordaliza. - CT chest 09/02 with extensive bilateral pulmonary opacities due to edema vs PNA. Also component of atelectasis. Bilateral pleural effusions. 4) Acute respiratory failure. Intubated. From pneumonia. 5) Recent oral Candidiasis ?? patient was on fluconazole and bactrim. Rapid HIV here reactive. 6) Abnormal CT A/P with numerous liver lesions suspicious for metastatic liver disease, moderate ascites, possible partial vein thrombosis. 7) Encephalopathy. 8) Transaminitis. Worsening. Could be due to shock liver. Plan: -follow-up Legionella ag, pneumococcal ag. -f/u blood cultures. -continue meropenem (D4), vancomycin (D4), fluconazole (D3). -Add bactrim. -check confirmatory HIV test, VL, genotype, CD4 count, HLA [id number], RPR, hep serologies, LDH. -Consider hem/onc consult for possible underlying malignancy. -CT A/P when stable. -d/w [employer]. Giselle Moran MD Infectious Diseases Specialist [facility] [phone]. Subjective Date of service: 09/05/17 Principal diagnosis: Septic shock, acute hypoxemic respiratory failure, [place] Interval history: Remains intubated. On 3 pressors, levophed, vasopressin and mary lou. Febrile. Microbiology: Blood cultures: 09/01 E coli x 4 bottles 09/04 pending Urine cultures: 09/02 Neg Respiratory cultures: TA 09/02 normal fiordaliza Crypto ag in serum negative Current Antimicrobials: Meropenem 09/02- Fluconazole 09/03- Vanco 09/02- Previous Antimicrobials: Zosyn 09/02 Azithro 09/02- Objective - Exam Narrative Exam: General appearance: Pt in NAD. Sedated on the vent Eyes: anicteric sclerae, moist conjunctivae HENT: Atraumatic; oropharynx clear + ETT, + NGT Neck: Trachea midline; supple, no thyromegaly or lymphadenopathy Lungs: Coarse BS CV: S1,S2. Abdomen: slightly tense +BS. Extremities: No peripheral edema or extremity lymphadenopathy Skin: Nno rash. Psych: sedated. Neuro: sedated. Lines: right IJ TLC / Quach clear urine. - Constitutional Vitals: Vital Signs Temp Pulse Resp BP Pulse Ox 98.2 F 101 H 22 115/68 100 09/05/17 08:00 09/05/17 10:21 09/05/17 08:55 09/05/17 10:21 09/05/17 10:21 Temperature -Last 24 Hours Temperature 98.2 F Temperature 100.2 F Temperature 99.7 F Temperature 100.1 F Temperature 102.2 F Temperature 99.3 F - Labs CBC & Chem 7: 09/04/17 09:00 09/05/17 06:00 Labs: Abnormal lab results 09/04/17 09/04/17 09/04/17 Range/Units 09:00 12:00 17:23 Seg Neuts % (Manual) 91.0 H (40.0-70.0) % Lymphocytes % (Manual) 3.0 L (13.4-35.0) % Nucleated RBC % 2.0 H (0.0-0.9) % Seg Neutrophils # Man 9.9 H (1.8-7.7) K/mm3 Lymphocytes # (Manual) 0.3 L (1.2-5.4) K/mm3 Fibrinogen 611 H (211-480) mg/dl POC ABG pH (7.35-7.45) POC ABG pCO2 (35-45) POC ABG pO2 (80-105) Chloride (98-107) mmol/L BUN (9-20) mg/dL Glucose (75-100) mg/dL POC Glucose (70-105) Lactic Acid 3.40 H* (0.7-2.0) mmol/L Calcium (8.4-10.2) mg/dL AST (5-40) units/L ALT (7-56) units/L Albumin (3.9-5) g/dL Lipase (13-60) units/L 09/04/17 09/04/17 09/04/17 Range/Units 17:23 17:47 22:30 Seg Neuts % (Manual) (40.0-70.0) % Lymphocytes % (Manual) (13.4-35.0) % Nucleated RBC % (0.0-0.9) % Seg Neutrophils # Man (1.8-7.7) K/mm3 Lymphocytes # (Manual) (1.2-5.4) K/mm3 Fibrinogen (211-480) mg/dl POC ABG pH (7.35-7.45) POC ABG pCO2 (35-45) POC ABG pO2 (80-105) Chloride (98-107) mmol/L BUN (9-20) mg/dL Glucose (75-100) mg/dL POC Glucose 107 H (70-105) Lactic Acid 4.70 H* (0.7-2.0) mmol/L Calcium (8.4-10.2) mg/dL AST (5-40) units/L ALT (7-56) units/L Albumin (3.9-5) g/dL Lipase 12 L (13-60) units/L 09/04/17 09/05/17 09/05/17 Range/Units 23:08 05:31 06:00 Seg Neuts % (Manual) (40.0-70.0) % Lymphocytes % (Manual) (13.4-35.0) % Nucleated RBC % (0.0-0.9) % Seg Neutrophils # Man (1.8-7.7) K/mm3 Lymphocytes # (Manual) (1.2-5.4) K/mm3 Fibrinogen (211-480) mg/dl POC ABG pH 7.226 L (7.35-7.45) POC ABG pCO2 65.4 H (35-45) POC ABG pO2 61 L (80-105) Chloride 112.7 H (98-107) mmol/L BUN 31 H (9-20) mg/dL Glucose 132 H (75-100) mg/dL POC Glucose 109 H (70-105) Lactic Acid (0.7-2.0) mmol/L Calcium 7.7 L (8.4-10.2) mg/dL AST 834 H (5-40) units/L ALT 898 H (7-56) units/L Albumin 1.4 L (3.9-5) g/dL Lipase (13-60) units/L 09/05/17 09/05/17 Range/Units 06:00 06:35 Seg Neuts % (Manual) (40.0-70.0) % Lymphocytes % (Manual) (13.4-35.0) % Nucleated RBC % (0.0-0.9) % Seg Neutrophils # Man (1.8-7.7) K/mm3 Lymphocytes # (Manual) (1.2-5.4) K/mm3 Fibrinogen (211-480) mg/dl POC ABG pH (7.35-7.45) POC ABG pCO2 (35-45) POC ABG pO2 (80-105) Chloride (98-107) mmol/L BUN (9-20) mg/dL Glucose (75-100) mg/dL POC Glucose 110 H (70-105) Lactic Acid 4.50 H* (0.7-2.0) mmol/L Calcium (8.4-10.2) mg/dL AST (5-40) units/L ALT (7-56) units/L Albumin (3.9-5) g/dL Lipase (13-60) units/L
[2017-09-05 11:46] LABS: Hematocrit 28.7 % (35.5-45.6); Hemoglobin 9.3 gm/dl (11.8-15.2); Mean Corpuscular HGB Conc 32 % (32-34); Mean Corpuscular Hemoglobin 28 pg (28-32); Mean Corpuscular Volume 85 fl (84-94); Platelet Count 118 K/mm3 (140-440); Red Blood Count 3.38 M/mm3 (3.65-5.03); Red Cell Distribution Width 16.7 % (13.2-15.2)
[2017-09-05 12:52] LABS: Basophils % (Manual) 0 % (0.0-1.8); Eosinophils % (Manual) 0 % (0.0-4.3); Total Cells Counted 100
[2017-09-05 12:53] LABS: Anisocytosis 1+
[2017-09-05 12:54] LABS: Hepatitis A Antibody IgM Non-Reactive (NonReactive); Hepatitis B Core IgM Non-Reactive (NonReactive); Hepatitis B Surface Antigen Reactive (Negative); Hepatitis C Virus Antibody Non-Reactive (NonReactive); Platelet Estimate Cons
[2017-09-05] MEDS: BACTRIM DS PO SCH ×2 (13:54→23:01)
[2017-09-05] MEDS: TYLENOL FEEDTUBE PRN (13:54)
[2017-09-05] MEDS ORDERED: SIMPLE SYRUP FEEDTUBE PRN ×2 (14:12)
[2017-09-05] MEDS ORDERED: PANCREAZE DR 10,500 UNIT FEEDTUBE PRN (14:12)
[2017-09-05] MEDS ORDERED: SODIUM BICARBONATE FEEDTUBE PRN (14:12)
--- NOTE | 2017-09-05 15:41 | Progress Note ---
Assessment and Plan Imp: 1. E.coli bacteremia of ? source 2. Bilateral pneumonia 3. Pleural effusions, more likely volume-related but could be due to #2 4. Acute respiratory failure, hypoxia 5. Severe sepsis with septic shock 6. Lactic acidosis 7. HIV/AIDS, poorly compliant with HAART for past > 1 year per [facility]; last CD4 per [facility] was 133 8. Dilated CMP 9. R/o DIC Rec: 1. ABX per ID; E.coli is sens to carbapenems; f/u urine culture 2. Bolus prn but try to hold off on more aggressive fluid administration given worsening CXR which likely represents combination of cardiogenic pulm edema + ARDS 3. Wean pressors to keep goal MAP > 65 4. Trend lactate [id number] 5. Too hypoxic for bronch/BAL; keep PEEP at 10 and wean FiO2 6. Needs CT a/p when more stable re: liver lesions 7. GI and DVT PPx; trickle TFs to start 8. Plateau pressure 22; cont. current minute ventilation 9. Note addition of Bactrim; will add steroids as well; send trach aspirate for cytology No family present CCT 31 minutes Subjective Date of service: 09/05/17 Principal diagnosis: Septic shock, acute hypoxemic respiratory failure, [place] Interval history: No events. Sedated. On FiO2 of 90% and PEEP of 10. Weaning Vignesh and Levophed, still on Vasopressin 0.03 units. Unable to give history. Active Medications Acetaminophen (Tylenol) 650 mg DE Q4H PRN PRN Reason: Pain, Mild (1-3) Last Admin: 09/02/17 22:03 Dose: 650 mg Acetaminophen (Tylenol) 650 mg FEEDTUBE Q6H PRN PRN Reason: Pain, Mild (1-3) Last Admin: 09/05/17 13:54 Dose: 650 mg Al Hydrox/Mg Hydrox/Simethicone (Alum-Mag Hydrox-Simeth [phone]/5ml) 30 ml PO Q4H PRN PRN Reason: Indigestion Albuterol (Proventil) 2.5 mg IH Q3HRT PRN PRN Reason: Shortness Of Breath Albuterol/Ipratropium (Duoneb *Not For Prn Use*) 1 ampul IH Q4HRT [facility] Last Admin: 09/05/17 13:24 Dose: 1 ampul Lipase/Protease/Amylase (Pancreaze Dr 10,500 Unit) 1 each FEEDTUBE PRN PRN PRN Reason: For Clogged Feeding Tube Bisacodyl (Dulcolax) 10 mg DE QDAY PRN PRN Reason: constipation unrelieved by MOM Dextrose (D50w (25gm) Syringe) 50 ml IV PRN PRN PRN Reason: Hypoglycemia Last Admin: 09/02/17 23:42 Dose: 50 ml Enoxaparin Sodium (Lovenox) 40 mg SUB-Q QDAY STEPHANIE Last Admin: 09/05/17 10:30 Dose: 40 mg Famotidine (Pepcid) 20 mg IV BID STEPHANIE Last Admin: 09/05/17 10:30 Dose: 20 mg Hydrophilic Ointment (Vaseline Lip Therapy) 1 applic TP Q2HR PRN PRN Reason: Dry Lips Last Admin: 09/02/17 10:15 Dose: 1 applic Fentanyl Citrate (Fentanyl Drip Premix) 2,000 mcg in 100 mls @ 2.903 mls/hr IV TITR STEPHANIE; 1 MCG/KG/HR PRN Reason: Protocol Last Admin: 09/05/17 08:17 Dose: 3 mcg/kg/hr, 8.709 mls/hr Vancomycin HCl 750 mg/ Sodium (Chloride) 257.5 mls @ 166.667 mls/hr IV Q12H STEPHANIE Last Admin: 09/05/17 06:09 Dose: 166.667 mls/hr Vasopressin 20 unit/ Sodium (Chloride) 101 mls @ 9.09 mls/hr IV TITR STEPHANIE; 0.03 UNITS/MIN PRN Reason: Protocol Last Admin: 09/05/17 12:50 Dose: 0.03 units/min, 9.09 mls/hr Dopamine HCl/Dextrose (Intropin Drip 800 Mg/D5w 250 Ml) 800 mg in 250 mls @ 2.177 mls/hr IV TITR STEPHANIE; 2 MCG/KG/MIN PRN Reason: Protocol Last Titration: 09/04/17 14:39 Dose: 0 mcg/kg/min, 0 mls/hr Meropenem 1,000 mg/ Sodium (Chloride) 100 mls @ 100 mls/hr IV Q8H STEPHANIE PRN Reason: Protocol Last Admin: 09/05/17 08:40 Dose: 100 mls/hr Fluconazole (Diflucan) 200 mg in 100 mls @ 100 mls/hr IV Q24HR STEPHANIE PRN Reason: Protocol Last Admin: 09/05/17 10:29 Dose: 100 mls/hr Norepinephrine 8 mg/ Sodium (Chloride) 250 mls @ 3.75 mls/hr IV TITR STEPHANIE; 2 MCG /MIN PRN Reason: Protocol Last Titration: 09/05/17 10:55 Dose: 8 mcg/min, 15 mls/hr Sodium Bicarbonate 150 meq/ (Dextrose) 1,150 mls @ 50 mls/hr IV DIRECT STEPHANIE Last Admin: 09/04/17 22:17 Dose: 50 mls/hr Phenylephrine HCl 100 mg/ (Sodium Chloride) 100 mls @ 3 mls/hr IV TITR STEPHANIE; 50 MCG/MIN PRN Reason: Protocol Last Titration: 09/05/17 12:30 Dose: 50 mcg/min, 3 mls/hr Insulin Aspart (Novolog) 0 units SUB-Q Q6HR STEPHANIE PRN Reason: Protocol Last Admin: 09/05/17 12:47 Dose: Not Given Methylprednisolone Sodium Succinate (Solu-Medrol) 40 mg IV Q8H [facility] Last Admin: 09/05/17 13:54 Dose: 40 mg Multi-Ingred Cream/Lotion/Oil/Oint (Artificial Tears Ophth Oint) 1 applic OU Q4HR PRN PRN Reason: Dry Eye(s) Naloxone HCl (Narcan 0.4 Mg/1 Ml) 0.1 mg IV Q2MIN PRN PRN Reason: Res Rate </= 8 or 02 SAT < 92% Simple Syrup (Simple Syrup) 15 ml FEEDTUBE PRN PRN PRN Reason: Hypoglycemia Simple Syrup (Simple Syrup) 30 ml FEEDTUBE PRN PRN PRN Reason: Hypoglycemia Sodium Bicarbonate (Sodium Bicarbonate) 325 mg FEEDTUBE PRN PRN PRN Reason: For Clogged Feeding Tube Trimethoprim/Sulfamethoxazole (Bactrim Ds) 2 each PO Q8HR [facility] Last Admin: 09/05/17 13:54 Dose: 2 each Vancomycin HCl (Vancomycin Pharmacy To Dose) 1 each IV PKCONSULT STEPHANIE PRN Reason: Protocol Objective Vital Signs - 12hr 09/05/17 09/05/17 09/05/17 03:39 03:45 03:54 Temperature Pulse Rate 104 H Pulse Rate [ 105 H 111 H Anterior Bilateral Throughout] Respiratory 17 Rate Respiratory 20 23 Rate [Anterior Bilateral Throughout] Blood Pressure 120/64 O2 Sat by Pulse 96 Oximetry 09/05/17 09/05/17 09/05/17 04:00 04:16 04:30 Temperature 100.2 F H Pulse Rate 102 H 121 H 110 H Pulse Rate [ Anterior Bilateral Throughout] Respiratory 23 19 20 Rate Respiratory Rate [Anterior Bilateral Throughout] Blood Pressure 120/64 120/64 135/82 O2 Sat by Pulse 99 88 90 Oximetry 09/05/17 09/05/17 09/05/17 04:45 05:00 05:15 Temperature Pulse Rate 108 H 110 H 107 H Pulse Rate [ Anterior Bilateral Throughout] Respiratory 17 17 22 Rate Respiratory Rate [Anterior Bilateral Throughout] Blood Pressure 113/71 117/63 107/66 O2 Sat by Pulse 91 94 93 Oximetry 09/05/17 09/05/17 09/05/17 05:30 05:45 06:00 Temperature Pulse Rate 106 H 107 H 113 H Pulse Rate [ Anterior Bilateral Throughout] Respiratory 19 19 18 Rate Respiratory Rate [Anterior Bilateral Throughout] Blood Pressure 108/60 105/61 105/61 O2 Sat by Pulse 92 92 92 Oximetry 09/05/17 09/05/17 09/05/17 06:15 06:30 06:45 Temperature Pulse Rate 106 H 105 H 103 H Pulse Rate [ Anterior Bilateral Throughout] Respiratory 22 21 22 Rate Respiratory Rate [Anterior Bilateral Throughout] Blood Pressure 118/72 124/72 124/69 O2 Sat by Pulse 100 100 99 Oximetry 09/05/17 09/05/17 09/05/17 07:00 07:15 07:30 Temperature Pulse Rate 104 H 105 H 103 H Pulse Rate [ Anterior Bilateral Throughout] Respiratory 22 22 22 Rate Respiratory Rate [Anterior Bilateral Throughout] Blood Pressure 131/71 126/75 112/78 O2 Sat by Pulse 100 100 100 Oximetry 09/05/17 09/05/17 09/05/17 07:45 08:00 08:15 Temperature 98.2 F Pulse Rate 104 H 103 H 104 H Pulse Rate [ Anterior Bilateral Throughout] Respiratory 22 22 22 Rate Respiratory Rate [Anterior Bilateral Throughout] Blood Pressure 136/73 118/73 119/74 O2 Sat by Pulse 100 100 100 Oximetry 09/05/17 09/05/17 09/05/17 08:30 08:43 08:44 Temperature Pulse Rate 102 H 102 H Pulse Rate [ 102 H Anterior Bilateral Throughout] Respiratory 22 Rate Respiratory 22 Rate [Anterior Bilateral Throughout] Blood Pressure 119/77 119/77 O2 Sat by Pulse 100 100 Oximetry 09/05/17 09/05/17 09/05/17 08:45 08:55 09:00 Temperature Pulse Rate 104 H 103 H Pulse Rate [ 101 H Anterior Bilateral Throughout] Respiratory 22 22 Rate Respiratory 22 Rate [Anterior Bilateral Throughout] Blood Pressure 129/73 124/74 O2 Sat by Pulse 98 100 Oximetry 09/05/17 09/05/17 09/05/17 09:15 09:30 09:45 Temperature Pulse Rate 102 H 102 H 102 H Pulse Rate [ Anterior Bilateral Throughout] Respiratory 20 19 22 Rate Respiratory Rate [Anterior Bilateral Throughout] Blood Pressure 121/77 127/82 114/70 O2 Sat by Pulse 100 100 100 Oximetry 09/05/17 09/05/17 09/05/17 10:00 10:15 10:21 Temperature Pulse Rate 102 H 102 H 101 H Pulse Rate [ Anterior Bilateral Throughout] Respiratory 22 23 Rate Respiratory Rate [Anterior Bilateral Throughout] Blood Pressure 116/76 115/68 115/68 O2 Sat by Pulse 100 100 100 Oximetry 09/05/17 09/05/17 09/05/17 10:30 10:45 11:00 Temperature Pulse Rate 101 H 99 H 98 H Pulse Rate [ Anterior Bilateral Throughout] Respiratory 22 23 22 Rate Respiratory Rate [Anterior Bilateral Throughout] Blood Pressure 108/67 112/71 102/61 O2 Sat by Pulse 100 100 100 Oximetry 09/05/17 09/05/17 09/05/17 11:15 11:30 11:45 Temperature Pulse Rate 98 H 98 H 99 H Pulse Rate [ Anterior Bilateral Throughout] Respiratory 22 21 22 Rate Respiratory Rate [Anterior Bilateral Throughout] Blood Pressure 114/58 118/55 108/59 O2 Sat by Pulse 100 100 100 Oximetry 09/05/17 09/05/17 09/05/17 12:00 12:15 12:30 Temperature 101.2 F H Pulse Rate 98 H 97 H 91 H Pulse Rate [ Anterior Bilateral Throughout] Respiratory 22 22 23 Rate Respiratory Rate [Anterior Bilateral Throughout] Blood Pressure 99/60 103/61 119/67 O2 Sat by Pulse 100 100 97 Oximetry 09/05/17 09/05/17 09/05/17 12:32 12:45 13:00 Temperature Pulse Rate 94 H 101 H 100 H Pulse Rate [ Anterior Bilateral Throughout] Respiratory 22 23 Rate Respiratory Rate [Anterior Bilateral Throughout] Blood Pressure 119/67 105/59 110/61 O2 Sat by Pulse 97 100 100 Oximetry 09/05/17 09/05/17 09/05/17 13:15 13:24 13:33 Temperature Pulse Rate 97 H Pulse Rate [ 95 H 92 H Anterior Bilateral Throughout] Respiratory 21 Rate Respiratory 23 22 Rate [Anterior Bilateral Throughout] Blood Pressure 108/65 O2 Sat by Pulse 100 Oximetry 09/05/17 13:54 Temperature Pulse Rate Pulse Rate [ Anterior Bilateral Throughout] Respiratory 25 H Rate Respiratory Rate [Anterior Bilateral Throughout] Blood Pressure O2 Sat by Pulse Oximetry Constitutional: other (critically ill on vent, sedated) Eyes: non-icteric ENT: other (orally intubated and sedated) Neck: supple Effort: normal Ascultation: Bilateral: other (coarse BS bilaterally) Cardiovascular: regular rate and rhythm (sinus tach) Gastrointestinal: hypoactive bowel sounds, soft, non-tender, non-distended Extremities: no cyanosis, no edema, pink and warm Neurologic: normal mental status, non-focal exam, pupils equal and round, CN II- XII normal Psychiatric: other (unable to assess) CBC and BMP: 09/05/17 10:55 09/05/17 06:00 ABG, PT/INR, D-dimer: ABG POC ABG pH 7.311 (7.35-7.45) L 09/05/17 10:26 POC ABG pCO2 58.5 (35-45) H 09/05/17 10:26 POC ABG pO2 213 (80-105) H 09/05/17 10:26 POC ABG HCO3 29.5 09/05/17 10:26 POC ABG Total CO2 31 09/05/17 10:26 POC ABG O2 Sat 100 09/05/17 10:26 PT/INR, D-dimer PT 28.4 Sec. (12.2-14.9) H 09/04/17 04:00 INR 2.47 (0.87-1.13) H 09/04/17 04:00 D-Dimer 976.43 ng/mlDDU (0-234) H 09/01/17 23:27 Abnormal lab findings: Abnormal Labs 09/01/17 09/01/17 09/01/17 19:00 19:00 23:27 WBC RBC Hgb 10.9 L Hct 32.3 L MCV 83 L RDW 15.6 H Plt Count [place] % (Auto) Seg Neutrophils % Seg Neuts % (Manual) Lymphocytes % (Manual) Nucleated RBC % Seg Neutrophils # Man Lymphocytes # (Manual) PT INR Fibrinogen D-Dimer 976.43 H POC ABG pH POC ABG pCO2 POC ABG pO2 Sodium 133 L Potassium Chloride 96.4 L Carbon Dioxide BUN Glucose 113 H POC Glucose Lactic Acid Calcium Phosphorus Magnesium AST ALT Lactate Dehydrogenase C-Reactive Protein Total Protein Albumin Lipase 09/01/17 09/02/17 09/02/17 23:27 01:25 07:36 WBC 2.2 L RBC 3.41 L Hgb 9.6 L Hct 28.9 L MCV RDW 16.0 H Plt Count [place] % (Auto) 12.6 H Seg Neutrophils % 70.4 H Seg Neuts % (Manual) Lymphocytes % (Manual) Nucleated RBC % Seg Neutrophils # Man 1.1 L Lymphocytes # (Manual) 0.6 L PT INR Fibrinogen D-Dimer POC ABG pH POC ABG pCO2 POC ABG pO2 Sodium Potassium Chloride Carbon Dioxide BUN Glucose POC Glucose Lactic Acid 3.30 H* 4.10 H* Calcium Phosphorus Magnesium AST ALT Lactate Dehydrogenase C-Reactive Protein Total Protein Albumin Lipase 09/02/17 09/02/17 09/02/17 07:36 07:36 07:36 WBC RBC Hgb Hct MCV RDW Plt Count [place] % (Auto) Seg Neutrophils % Seg Neuts % (Manual) Lymphocytes % (Manual) Nucleated RBC % Seg Neutrophils # Man Lymphocytes # (Manual) PT 18.6 H INR 1.46 H Fibrinogen D-Dimer POC ABG pH POC ABG pCO2 POC ABG pO2 Sodium 136 L Potassium Chloride Carbon Dioxide BUN Glucose POC Glucose Lactic Acid 3.80 H* Calcium Phosphorus Magnesium 1.20 L AST ALT Lactate Dehydrogenase C-Reactive Protein Total Protein 9.1 H Albumin 2.0 L Lipase 09/02/17 09/02/17 09/02/17 08:49 09:40 11:33 WBC RBC Hgb Hct MCV RDW Plt Count [place] % (Auto) Seg Neutrophils % Seg Neuts % (Manual) Lymphocytes % (Manual) Nucleated RBC % Seg Neutrophils # Man Lymphocytes # (Manual) PT INR Fibrinogen D-Dimer POC ABG pH 7.313 L POC ABG pCO2 POC ABG pO2 116 H Sodium Potassium Chloride Carbon Dioxide BUN Glucose POC Glucose Lactic Acid 3.60 H* 5.20 H* Calcium Phosphorus Magnesium AST ALT Lactate Dehydrogenase C-Reactive Protein Total Protein Albumin Lipase 09/02/17 09/02/17 09/02/17 19:34 23:37 23:40 WBC RBC Hgb Hct MCV RDW Plt Count [place] % (Auto) Seg Neutrophils % Seg Neuts % (Manual) Lymphocytes % (Manual) Nucleated RBC % Seg Neutrophils # Man Lymphocytes # (Manual) PT INR Fibrinogen D-Dimer POC ABG pH POC ABG pCO2 POC ABG pO2 Sodium Potassium Chloride Carbon Dioxide BUN Glucose 59 L POC Glucose 47 L Lactic Acid Calcium Phosphorus Magnesium AST ALT Lactate Dehydrogenase C-Reactive Protein 22.30 H Total Protein Albumin Lipase 09/03/17 09/03/17 09/03/17 00:06 05:15 05:15 WBC RBC 3.59 L Hgb 10.1 L Hct 31.5 L MCV RDW 18.0 H Plt Count [place] % (Auto) Seg Neutrophils % Seg Neuts % (Manual) Lymphocytes % (Manual) 1.0 L Nucleated RBC % 1.0 H Seg Neutrophils # Man Lymphocytes # (Manual) 0.1 L PT INR Fibrinogen D-Dimer POC ABG pH POC ABG pCO2 POC ABG pO2 Sodium Potassium Chloride Carbon Dioxide BUN Glucose POC Glucose 144 H Lactic Acid 9.10 H* Calcium Phosphorus Magnesium AST ALT Lactate Dehydrogenase C-Reactive Protein Total Protein Albumin Lipase 09/03/17 09/03/17 09/03/17 05:15 05:55 07:40 WBC RBC Hgb Hct MCV RDW Plt Count [place] % (Auto) Seg Neutrophils % Seg Neuts % (Manual) Lymphocytes % (Manual) Nucleated RBC % Seg Neutrophils # Man Lymphocytes # (Manual) PT INR Fibrinogen D-Dimer POC ABG pH 6.999 L POC ABG pCO2 POC ABG pO2 64 L Sodium Potassium 5.6 H D Chloride 108.4 H Carbon Dioxide 11 L D BUN 30 H Glucose 115 H POC Glucose Lactic Acid 9.20 H* Calcium 7.3 L D Phosphorus 6.40 H Magnesium AST 88 H ALT Lactate Dehydrogenase C-Reactive Protein Total Protein Albumin 1.7 L Lipase 09/03/17 09/03/17 09/03/17 09:55 12:03 13:17 WBC RBC Hgb Hct MCV RDW Plt Count [place] % (Auto) Seg Neutrophils % Seg Neuts % (Manual) Lymphocytes % (Manual) Nucleated RBC % Seg Neutrophils # Man Lymphocytes # (Manual) PT INR Fibrinogen D-Dimer POC ABG pH POC ABG pCO2 POC ABG pO2 Sodium Potassium Chloride Carbon Dioxide BUN Glucose POC Glucose 155 H Lactic Acid 9.50 H* 9.90 H* Calcium Phosphorus Magnesium AST ALT Lactate Dehydrogenase C-Reactive Protein Total Protein Albumin Lipase 09/03/17 09/03/17 09/03/17 15:55 17:13 18:02 WBC RBC Hgb Hct MCV RDW Plt Count [place] % (Auto) Seg Neutrophils % Seg Neuts % (Manual) Lymphocytes % (Manual) Nucleated RBC % Seg Neutrophils # Man Lymphocytes # (Manual) PT INR Fibrinogen D-Dimer POC ABG pH POC ABG pCO2 POC ABG pO2 Sodium Potassium Chloride Carbon Dioxide BUN Glucose POC Glucose 171 H Lactic Acid 9.60 H* 9.00 H* Calcium Phosphorus Magnesium AST ALT Lactate Dehydrogenase C-Reactive Protein Total Protein Albumin Lipase 09/03/17 09/03/17 09/04/17 20:29 23:02 04:00 WBC RBC Hgb Hct MCV RDW Plt Count [place] % (Auto) Seg Neutrophils % Seg Neuts % (Manual) Lymphocytes % (Manual) Nucleated RBC % Seg Neutrophils # Man Lymphocytes # (Manual) PT INR Fibrinogen D-Dimer POC ABG pH POC ABG pCO2 POC ABG pO2 Sodium Potassium Chloride Carbon Dioxide BUN Glucose POC Glucose 156 H Lactic Acid 9.00 H* 3.00 H* Calcium Phosphorus Magnesium AST ALT Lactate Dehydrogenase C-Reactive Protein Total Protein Albumin Lipase 09/04/17 09/04/17 09/04/17 04:00 04:00 09:00 WBC RBC 3.44 L Hgb 9.6 L Hct 29.0 L MCV RDW 17.4 H Plt Count 124 L [place] % (Auto) Seg Neutrophils % Seg Neuts % (Manual) 91.0 H Lymphocytes % (Manual) 3.0 L Nucleated RBC % 2.0 H Seg Neutrophils # Man 9.9 H Lymphocytes # (Manual) 0.3 L PT 28.4 H INR 2.47 H Fibrinogen D-Dimer POC ABG pH POC ABG pCO2 POC ABG pO2 Sodium Potassium Chloride 110.1 H Carbon Dioxide BUN 29 H Glucose 192 H POC Glucose Lactic Acid Calcium 6.8 L Phosphorus Magnesium AST 361 H ALT 315 H Lactate Dehydrogenase C-Reactive Protein Total Protein Albumin 1.6 L Lipase 09/04/17 09/04/17 09/04/17 09:00 12:00 17:23 WBC RBC Hgb Hct MCV RDW Plt Count [place] % (Auto) Seg Neutrophils % Seg Neuts % (Manual) Lymphocytes % (Manual) Nucleated RBC % Seg Neutrophils # Man Lymphocytes # (Manual) PT INR Fibrinogen 611 H D-Dimer POC ABG pH POC ABG pCO2 POC ABG pO2 Sodium Potassium Chloride Carbon Dioxide BUN Glucose POC Glucose Lactic Acid 2.10 H* 3.40 H* Calcium Phosphorus Magnesium AST ALT Lactate Dehydrogenase C-Reactive Protein Total Protein Albumin Lipase 09/04/17 09/04/17 09/04/17 17:23 17:47 22:30 WBC RBC Hgb Hct MCV RDW Plt Count [place] % (Auto) Seg Neutrophils % Seg Neuts % (Manual) Lymphocytes % (Manual) Nucleated RBC % Seg Neutrophils # Man Lymphocytes # (Manual) PT INR Fibrinogen D-Dimer POC ABG pH POC ABG pCO2 POC ABG pO2 Sodium Potassium Chloride Carbon Dioxide BUN Glucose POC Glucose 107 H Lactic Acid 4.70 H* Calcium Phosphorus Magnesium AST ALT Lactate Dehydrogenase C-Reactive Protein Total Protein Albumin Lipase 12 L 09/04/17 09/05/17 09/05/17 23:08 05:31 06:00 WBC RBC Hgb Hct MCV RDW Plt Count [place] % (Auto) Seg Neutrophils % Seg Neuts % (Manual) Lymphocytes % (Manual) Nucleated RBC % Seg Neutrophils # Man Lymphocytes # (Manual) PT INR Fibrinogen D-Dimer POC ABG pH 7.226 L POC ABG pCO2 65.4 H POC ABG pO2 61 L Sodium Potassium Chloride 112.7 H Carbon Dioxide BUN 31 H Glucose 132 H POC Glucose 109 H Lactic Acid Calcium 7.7 L Phosphorus Magnesium AST 834 H ALT 898 H Lactate Dehydrogenase C-Reactive Protein Total Protein Albumin 1.4 L Lipase 09/05/17 09/05/17 09/05/17 06:00 06:35 10:26 WBC RBC Hgb Hct MCV RDW Plt Count [place] % (Auto) Seg Neutrophils % Seg Neuts % (Manual) Lymphocytes % (Manual) Nucleated RBC % Seg Neutrophils # Man Lymphocytes # (Manual) PT INR Fibrinogen D-Dimer POC ABG pH 7.311 L POC ABG pCO2 58.5 H POC ABG pO2 213 H Sodium Potassium Chloride Carbon Dioxide BUN Glucose POC Glucose 110 H Lactic Acid 4.50 H* Calcium Phosphorus Magnesium AST ALT Lactate Dehydrogenase C-Reactive Protein Total Protein Albumin Lipase 09/05/17 09/05/17 09/05/17 10:55 10:55 10:55 WBC 11.1 H RBC 3.38 L Hgb 9.3 L Hct 28.7 L MCV RDW 16.7 H Plt Count 118 L [place] % (Auto) Seg Neutrophils % Seg Neuts % (Manual) 92.0 H Lymphocytes % (Manual) 4.0 L Nucleated RBC % 2.0 H Seg Neutrophils # Man 10.2 H Lymphocytes # (Manual) 0.4 L PT INR Fibrinogen D-Dimer POC ABG pH POC ABG pCO2 POC ABG pO2 Sodium Potassium Chloride Carbon Dioxide BUN Glucose POC Glucose Lactic Acid 3.60 H* Calcium Phosphorus Magnesium AST ALT Lactate Dehydrogenase 571 H C-Reactive Protein Total Protein Albumin Lipase 09/05/17 12:05 WBC RBC Hgb Hct MCV RDW Plt Count [place] % (Auto) Seg Neutrophils % Seg Neuts % (Manual) Lymphocytes % (Manual) Nucleated RBC % Seg Neutrophils # Man Lymphocytes # (Manual) PT INR Fibrinogen D-Dimer POC ABG pH POC ABG pCO2 POC ABG pO2 Sodium Potassium Chloride Carbon Dioxide BUN Glucose POC Glucose 148 H Lactic Acid Calcium Phosphorus Magnesium AST ALT Lactate Dehydrogenase C-Reactive Protein Total Protein Albumin Lipase Chest x-ray: report reviewed, image reviewed
[2017-09-06] MEDS: Vasostrict 20 UNIT in NACL 0.9% 100 ML IV SCH (00:46)
[2017-09-06] MEDS: MERREM 1,000 MG in NACL 0.9% 100 ML IV SCH ×3 (01:07→16:09)
[2017-09-06] MEDS: NOVOLOG SUB-Q SCH ×4 (01:07→18:30)
--- NOTE | 2017-09-06 03:16 | XRay Report ---
FINAL REPORT EXAM: XR CHEST 1V AP HISTORY: follow up respiratory failure TECHNIQUE: A portable upright view the chest was obtained and compared study of 09/05/2017. FINDINGS: The ET tube and NG tube are in good position. The tip of the right transjugular venous line is in good position in the superior vena cava. The lungs remain diffusely congested with airspace disease throughout both lungs. There are stable bilateral effusions. Overall the lungs are better aerated since the previous study. The heart is enlarged. The bones and soft tissues otherwise are unchanged. IMPRESSION: Diffuse pulmonary vascular congestion with bilateral effusions and extensive airspace disease in both lungs. Slightly improved aeration of both lungs since yesterday study. Satisfactory position of all tubes and lines.
[2017-09-06] MEDS: DUONEB *Not for PRN Use IH SCH ×6 (03:56→23:29)
[2017-09-06] MEDS: BACTRIM DS PO SCH ×3 (05:43→22:19)
[2017-09-06] MEDS: VANCOMYCIN 750 MG in NACL 0.9% 250ML 250 ML IV SCH ×2 (06:08→18:49)
[2017-09-06 06:51] LABS: Hematocrit 27.5 % (35.5-45.6); Mean Corpuscular HGB Conc 33 % (32-34); Mean Corpuscular Hemoglobin 28 pg (28-32); Mean Corpuscular Volume 84 fl (84-94); Platelet Count 104 K/mm3 (140-440); Red Blood Count 3.26 M/mm3 (3.65-5.03); Red Cell Distribution Width 16.7 % (13.2-15.2)
[2017-09-06 07:18] LABS: Alanine Aminotransferase 634 units/L (7-56); Albumin 1.5 g/dL (3.9-5); BUN/Creatinine Ratio 38; Blood Urea Nitrogen 34 mg/dL (9-20); Calcium 8.2 mg/dL (8.4-10.2); Hemolysis Index 14
[2017-09-06 08:41] LABS: Basophils % (Manual) 0 % (0.0-1.8); Eosinophils % (Manual) 0 % (0.0-4.3); Total Cells Counted 100
[2017-09-06 08:42] LABS: Anisocytosis 1+; Platelet Estimate Cons
--- NOTE | 2017-09-06 09:09 | Progress Note ---
Assessment and Plan Assessment: 1) Severe Sepsis with septic shock: Present on admission, manifested by fever, tachycardia, hypotension, increased lactate. Etiology most likely E coli septicemia, pneumonia. -CRP 22.30. -Lactic acid better today. -Still on pressors. -Afebrile so far today. 2) E. coli septicemia: unknown source ? Pneumonia ? UTI (UCx negative) ? GI -Blood cultures 09/01 positive 4 of 4 bottles -Repeat Blood cultures 09/04 NGTD -TTE 09/02 no vegetations. 3) Bilateral pneumonia: recently treated at [facility]. ? Pneumocystis pneumonia (LDH 571). -Tracheal asp with normal fiordaliza. - CT chest 09/02 with extensive bilateral pulmonary opacities due to edema vs PNA. Also component of atelectasis. Bilateral pleural effusions. - Legionella and Strep pneumo ag in urine negative 4) Acute respiratory failure. Intubated. From pneumonia. 5) HIV/AIDS, poorly compliant with HAART for past > 1 year per [facility]; last CD4 per [facility] was 133 6) Abnormal CT A/P with numerous liver lesions suspicious for metastatic liver disease, moderate ascites, possible partial vein thrombosis. 7) Encephalopathy. 8) Transaminitis. Could be due to shock liver. Better today. ?hep B. -Hep B Surface ag positive -Hep C negative 9) Acute Thrombocytopenia. Plan: -f/u blood cultures. -continue meropenem (D5), vancomycin (D5), fluconazole (D4), bactrim (D2). Add azithromycin. -Will f/u confirmatory HIV test, HIV-VL, genotype, CD4 count, HLA [id number], quantiferon. -Check RPR, Hep B Surface antibody, Core antibody IgG, e antigen/antibody and hep B viral load. -Check AFB and fungal blood cultures. -Check Pneumocystis smear. -As per pulmonary to hypoxic for bronch/BAL. -Consider hem/onc consult for possible underlying malignancy. -CT A/P when stable. -d/w INSTRUCTIONAL WRITER. Giselle Moran MD Infectious Diseases Specialist [facility] M [phone]. Subjective Date of service: 09/06/17 Principal diagnosis: Septic shock, acute hypoxemic respiratory failure, Pnumonia Interval history: Remains intubated. Fever yesterday. Afebrile so far today. Off levophed since 6 am, off mary lou since yesterday. On vasopressin. FIO2 100%. Microbiology: Blood cultures: 09/01 E coli x 4 bottles 09/04 NGTD Urine cultures: 09/02 Neg Respiratory cultures: TA 09/02 normal fiordaliza Crypto ag in serum negative Current Antimicrobials: Meropenem 09/02- Fluconazole 09/03- Vanco 09/02- Bactrim 09/05- Azithromycin 09/06 Solumedrol 09/05- Previous Antimicrobials: Zosyn 09/02 Azithro 09/02 Objective - Exam Narrative Exam: General appearance: Pt in NAD. Sedated on the vent. Eyes open. Eyes: anicteric sclerae, moist conjunctivae HENT: Atraumatic; oropharynx clear + ETT, + NGT Neck: Trachea midline; supple, no thyromegaly or lymphadenopathy Lungs: Coarse BS CV: S1,S2. Abdomen: slightly tense +BS. Extremities: No peripheral edema or extremity lymphadenopathy Skin: No rash. Psych: sedated. Neuro: sedated. Eyes open, but doesn't follow commands consistently. Lines: right IJ TLC / Quach clear urine. - Constitutional Vitals: Vital Signs Temp Pulse Resp BP Pulse Ox 98.9 F 100 H 26 H 127/82 91 09/06/17 04:00 09/06/17 08:37 09/06/17 08:37 09/06/17 08:07 09/06/17 08:07 Temperature -Last 24 Hours Temperature 98.9 F Temperature 98.7 F Temperature 98.7 F Temperature 98.4 F Temperature 100.4 F Temperature 101.2 F - Labs CBC & Chem 7: 09/06/17 06:15 09/06/17 06:15 Labs: Abnormal lab results 09/05/17 09/05/17 09/05/17 Range/Units 10:26 10:55 10:55 WBC 11.1 H (4.5-11.0) K/mm3 RBC 3.38 L (3.65-5.03) M/mm3 Hgb 9.3 L (11.8-15.2) gm/dl Hct 28.7 L (35.5-45.6) % RDW 16.7 H (13.2-15.2) % Plt Count 118 L (140-440) K/mm3 Seg Neuts % (Manual) 92.0 H (40.0-70.0) % Lymphocytes % (Manual) 4.0 L (13.4-35.0) % Nucleated RBC % 2.0 H (0.0-0.9) % Seg Neutrophils # Man 10.2 H (1.8-7.7) K/mm3 Lymphocytes # (Manual) 0.4 L (1.2-5.4) K/mm3 POC ABG pH 7.311 L (7.35-7.45) POC ABG pCO2 58.5 H (35-45) POC ABG pO2 213 H (80-105) Sodium (137-145) mmol/L Chloride (98-107) mmol/L Carbon Dioxide (22-30) mmol/L BUN (9-20) mg/dL Glucose (75-100) mg/dL POC Glucose (70-105) Lactic Acid 3.60 H* (0.7-2.0) mmol/L Calcium (8.4-10.2) mg/dL AST (5-40) units/L ALT (7-56) units/L Lactate Dehydrogenase (91-180) units/L Albumin (3.9-5) g/dL 09/05/17 09/05/17 09/05/17 Range/Units 10:55 12:05 16:30 WBC (4.5-11.0) K/mm3 RBC (3.65-5.03) M/mm3 Hgb (11.8-15.2) gm/dl Hct (35.5-45.6) % RDW (13.2-15.2) % Plt Count (140-440) K/mm3 Seg Neuts % (Manual) (40.0-70.0) % Lymphocytes % (Manual) (13.4-35.0) % Nucleated RBC % (0.0-0.9) % Seg Neutrophils # Man (1.8-7.7) K/mm3 Lymphocytes # (Manual) (1.2-5.4) K/mm3 POC ABG pH (7.35-7.45) POC ABG pCO2 (35-45) POC ABG pO2 (80-105) Sodium (137-145) mmol/L Chloride (98-107) mmol/L Carbon Dioxide (22-30) mmol/L BUN (9-20) mg/dL Glucose (75-100) mg/dL POC Glucose 148 H (70-105) Lactic Acid 3.50 H* (0.7-2.0) mmol/L Calcium (8.4-10.2) mg/dL AST (5-40) units/L ALT (7-56) units/L Lactate Dehydrogenase 571 H (91-180) units/L Albumin (3.9-5) g/dL 09/05/17 09/05/17 09/05/17 Range/Units 17:42 19:55 23:29 WBC (4.5-11.0) K/mm3 RBC (3.65-5.03) M/mm3 Hgb (11.8-15.2) gm/dl Hct (35.5-45.6) % RDW (13.2-15.2) % Plt Count (140-440) K/mm3 Seg Neuts % (Manual) (40.0-70.0) % Lymphocytes % (Manual) (13.4-35.0) % Nucleated RBC % (0.0-0.9) % Seg Neutrophils # Man (1.8-7.7) K/mm3 Lymphocytes # (Manual) (1.2-5.4) K/mm3 POC ABG pH (7.35-7.45) POC ABG pCO2 (35-45) POC ABG pO2 (80-105) Sodium (137-145) mmol/L Chloride (98-107) mmol/L Carbon Dioxide (22-30) mmol/L BUN (9-20) mg/dL Glucose (75-100) mg/dL POC Glucose 183 H 203 H (70-105) Lactic Acid 3.60 H* (0.7-2.0) mmol/L Calcium (8.4-10.2) mg/dL AST (5-40) units/L ALT (7-56) units/L Lactate Dehydrogenase (91-180) units/L Albumin (3.9-5) g/dL 09/06/17 09/06/17 09/06/17 Range/Units 03:58 05:33 06:15 WBC (4.5-11.0) K/mm3 RBC (3.65-5.03) M/mm3 Hgb (11.8-15.2) gm/dl Hct (35.5-45.6) % RDW (13.2-15.2) % Plt Count (140-440) K/mm3 Seg Neuts % (Manual) (40.0-70.0) % Lymphocytes % (Manual) (13.4-35.0) % Nucleated RBC % (0.0-0.9) % Seg Neutrophils # Man (1.8-7.7) K/mm3 Lymphocytes # (Manual) (1.2-5.4) K/mm3 POC ABG pH (7.35-7.45) POC ABG pCO2 62.5 H (35-45) POC ABG pO2 141 H (80-105) Sodium (137-145) mmol/L Chloride (98-107) mmol/L Carbon Dioxide (22-30) mmol/L BUN (9-20) mg/dL Glucose (75-100) mg/dL POC Glucose 207 H (70-105) Lactic Acid 2.90 H* (0.7-2.0) mmol/L Calcium (8.4-10.2) mg/dL AST (5-40) units/L ALT (7-56) units/L Lactate Dehydrogenase (91-180) units/L Albumin (3.9-5) g/dL 09/06/17 09/06/17 09/06/17 Range/Units 06:15 06:15 08:03 WBC (4.5-11.0) K/mm3 RBC 3.26 L (3.65-5.03) M/mm3 Hgb 9.0 L (11.8-15.2) gm/dl Hct 27.5 L (35.5-45.6) % RDW 16.7 H (13.2-15.2) % Plt Count 104 L (140-440) K/mm3 Seg Neuts % (Manual) 97.0 H (40.0-70.0) % Lymphocytes % (Manual) 2.0 L (13.4-35.0) % Nucleated RBC % (0.0-0.9) % Seg Neutrophils # Man 8.1 H (1.8-7.7) K/mm3 Lymphocytes # (Manual) 0.2 L (1.2-5.4) K/mm3 POC ABG pH (7.35-7.45) POC ABG pCO2 (35-45) POC ABG pO2 (80-105) Sodium 150 H (137-145) mmol/L Chloride 110.9 H (98-107) mmol/L Carbon Dioxide 31 H (22-30) mmol/L BUN 34 H (9-20) mg/dL Glucose 207 H (75-100) mg/dL POC Glucose (70-105) Lactic Acid 2.90 H* (0.7-2.0) mmol/L Calcium 8.2 L (8.4-10.2) mg/dL AST 346 H (5-40) units/L ALT 634 H (7-56) units/L Lactate Dehydrogenase (91-180) units/L Albumin 1.5 L (3.9-5) g/dL
[2017-09-06] MEDS: fentaNYL DRIP Premix 2,000 MCG/100 ML BAG IV SCH ×2 (09:39→16:19)
[2017-09-06] MEDS: PEPCID IV SCH ×2 (09:41→22:19)
[2017-09-06] MEDS: LOVENOX SUB-Q SCH (09:42)
[2017-09-06] MEDS: DIFLUCAN 200 MG/100 ML BAG IV SCH (10:30)
[2017-09-06] MEDS: ZITHROMAX 500 MG in NACL 0.9% 250ML 250 ML IV SCH (13:20)
[2017-09-06] MEDS: MIDAZOLAM 100 MG in NACL 0.9% 80 ML IV SCH (13:28)
--- NOTE | 2017-09-06 15:15 | Progress Note ---
Assessment and Plan 52-year-old male presents to the emergency department with complaint of shortness of breath and some midsternal right-sided chest discomfort with inspiration that started earlier this afternoon and radiates towards the back. The patient was just discharged from the [facility] a few days ago after spending some time therefore bilateral pneumonia. He is on Bactrim and just finished a course of antifungal medication for oral thrush. He denies any past medical history other than this pneumonia. He does not smoke or use illicit drugs. His physicians are through the [facility]. Patient was recently discharged from a 6 day hospital stay at the [facility]. He denies any leg swelling, nausea, vomiting or fever. * Septic shock due to underlying pneumonia currently on two pressors * Lactic acidosis from sepsis worsening - ? 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 pt on pressors Monitor CBC and electrolytes DVT GI prophylaxis with Lovenox and Pepcid Discussed with Critical care physician VTE prophylaxis?: Chemical, Mechanical Subjective Date of service: 09/06/17 Principal diagnosis: Septic shock, acute hypoxemic respiratory failure, Pnumonia Interval history: Remain intubated. Still hypotensive though improving. On two pressors. Discussed with pt's nurse. Reviewed laboratory and radiological data Objective - Exam Narrative Exam: Constitutional: Well-nourished well-developed. Intubated and vent supported. In no distress Head: Normocephalic atraumatic Eyes: Pupils are equal round and reactive to light Nose: No enlarged turbinates, no septal deviation. Mouth: Moist mucous membranes. Neck: Supple no thyromegaly. No bruit. No JVD Heart: Regular rate and rhythm, S1-S2 abnormal. No rubs murmurs or gallop Lungs: Decreased breath sounds bilaterally. no rales or rhonchi Abdomen: Soft, nontender. Bowel sound are present. Extremities: No edema no cyanosis and no clubbing. Neuro: Intubated and sedated. Skin: No rashes no hyperemic spots Psychiatry: Intubated and sedated. - Constitutional Vitals: Vital Signs - 12hr 09/06/17 09/06/17 09/06/17 03:30 03:45 03:54 Temperature Pulse Rate 94 H 98 H 120 H Pulse Rate [ Anterior Bilateral Throughout] Respiratory 22 19 Rate Respiratory Rate [Anterior Bilateral Throughout] Blood Pressure 115/73 132/81 132/81 O2 Sat by Pulse 100 100 91 Oximetry 09/06/17 09/06/17 09/06/17 04:00 04:15 04:30 Temperature 98.9 F Pulse Rate 101 H 118 H Pulse Rate [ Anterior Bilateral Throughout] Respiratory 24 33 H 24 Rate Respiratory Rate [Anterior Bilateral Throughout] Blood Pressure 136/84 137/97 146/88 O2 Sat by Pulse 87 82 L 87 Oximetry 09/06/17 09/06/17 09/06/17 04:45 05:01 05:15 Temperature Pulse Rate 121 H 98 H 100 H Pulse Rate [ Anterior Bilateral Throughout] Respiratory 18 34 H 23 Rate Respiratory Rate [Anterior Bilateral Throughout] Blood Pressure 154/91 149/99 122/81 O2 Sat by Pulse 94 95 100 Oximetry 09/06/17 09/06/17 09/06/17 05:30 05:45 06:00 Temperature Pulse Rate 95 H 95 H 111 H Pulse Rate [ Anterior Bilateral Throughout] Respiratory 20 22 28 H Rate Respiratory Rate [Anterior Bilateral Throughout] Blood Pressure 132/80 112/69 156/82 O2 Sat by Pulse 100 100 91 Oximetry 09/06/17 09/06/17 09/06/17 06:15 06:30 06:45 Temperature Pulse Rate 78 104 H 118 H Pulse Rate [ Anterior Bilateral Throughout] Respiratory 25 H 25 H 39 H Rate Respiratory Rate [Anterior Bilateral Throughout] Blood Pressure 127/71 114/73 153/79 O2 Sat by Pulse 94 98 88 Oximetry 09/06/17 09/06/17 09/06/17 07:01 07:15 07:30 Temperature Pulse Rate 90 98 H 94 H Pulse Rate [ Anterior Bilateral Throughout] Respiratory 23 22 25 H Rate Respiratory Rate [Anterior Bilateral Throughout] Blood Pressure 118/76 103/64 113/70 O2 Sat by Pulse 92 98 97 Oximetry 09/06/17 09/06/17 09/06/17 07:45 08:00 08:07 Temperature 97.8 F Pulse Rate 98 H 97 H 98 H Pulse Rate [ Anterior Bilateral Throughout] Respiratory 27 H 21 Rate Respiratory Rate [Anterior Bilateral Throughout] Blood Pressure 127/82 99/59 127/82 O2 Sat by Pulse 91 96 91 Oximetry 09/06/17 09/06/17 09/06/17 08:15 08:31 08:37 Temperature Pulse Rate 98 H 108 H Pulse Rate [ 100 H Anterior Bilateral Throughout] Respiratory 23 24 Rate Respiratory 26 H Rate [Anterior Bilateral Throughout] Blood Pressure 100/63 135/91 O2 Sat by Pulse 97 98 Oximetry 09/06/17 09/06/17 09/06/17 08:45 09:00 09:09 Temperature Pulse Rate 98 H 94 H Pulse Rate [ 91 H Anterior Bilateral Throughout] Respiratory 22 22 Rate Respiratory 22 Rate [Anterior Bilateral Throughout] Blood Pressure 103/65 97/61 O2 Sat by Pulse 97 97 Oximetry 09/06/17 09/06/17 09/06/17 09:15 09:30 09:45 Temperature Pulse Rate 93 H 95 H 109 H Pulse Rate [ Anterior Bilateral Throughout] Respiratory 22 22 32 H Rate Respiratory Rate [Anterior Bilateral Throughout] Blood Pressure 103/61 93/57 148/80 O2 Sat by Pulse 100 100 91 Oximetry 09/06/17 09/06/17 09/06/17 10:00 10:15 10:30 Temperature Pulse Rate 115 H 119 H 132 H Pulse Rate [ Anterior Bilateral Throughout] Respiratory 26 H 27 H 25 H Rate Respiratory Rate [Anterior Bilateral Throughout] Blood Pressure 153/78 162/86 170/85 O2 Sat by Pulse 88 87 87 Oximetry 09/06/17 09/06/17 09/06/17 10:45 11:00 11:15 Temperature Pulse Rate 102 H 111 H 99 H Pulse Rate [ Anterior Bilateral Throughout] Respiratory 23 21 26 H Rate Respiratory Rate [Anterior Bilateral Throughout] Blood Pressure 114/81 148/95 107/71 O2 Sat by Pulse 96 89 94 Oximetry 09/06/17 09/06/17 09/06/17 11:30 11:45 12:00 Temperature Pulse Rate 104 H 87 116 H Pulse Rate [ Anterior Bilateral Throughout] Respiratory 19 24 23 Rate Respiratory Rate [Anterior Bilateral Throughout] Blood Pressure 122/86 106/76 104/86 O2 Sat by Pulse 92 96 88 Oximetry 09/06/17 09/06/17 09/06/17 12:15 12:28 12:30 Temperature Pulse Rate 118 H 110 H 121 H Pulse Rate [ Anterior Bilateral Throughout] Respiratory 22 23 Rate Respiratory Rate [Anterior Bilateral Throughout] Blood Pressure 118/79 118/79 128/99 O2 Sat by Pulse 86 91 88 Oximetry 09/06/17 09/06/17 09/06/17 12:40 12:45 12:55 Temperature Pulse Rate 113 H Pulse Rate [ 118 H 116 H Anterior Bilateral Throughout] Respiratory 22 Rate Respiratory 22 20 Rate [Anterior Bilateral Throughout] Blood Pressure 99/59 O2 Sat by Pulse 94 Oximetry 09/06/17 09/06/17 09/06/17 13:00 13:15 13:30 Temperature 98.1 F Pulse Rate 119 H 125 H 121 H Pulse Rate [ Anterior Bilateral Throughout] Respiratory 33 H 25 H 28 H Rate Respiratory Rate [Anterior Bilateral Throughout] Blood Pressure 131/77 131/78 125/78 O2 Sat by Pulse 88 86 90 Oximetry 09/06/17 09/06/17 09/06/17 13:45 14:00 14:15 Temperature Pulse Rate 149 H 115 H 117 H Pulse Rate [ Anterior Bilateral Throughout] Respiratory 22 19 28 H Rate Respiratory Rate [Anterior Bilateral Throughout] Blood Pressure 114/66 106/64 97/63 O2 Sat by Pulse 87 91 100 Oximetry 09/06/17 09/06/17 09/06/17 14:30 14:42 14:45 Temperature Pulse Rate 116 H 98 H 115 H Pulse Rate [ Anterior Bilateral Throughout] Respiratory 17 22 Rate Respiratory Rate [Anterior Bilateral Throughout] Blood Pressure 88/54 88/24 93/47 O2 Sat by Pulse 99 122 H 97 Oximetry 09/06/17 15:00 Temperature Pulse Rate 110 H Pulse Rate [ Anterior Bilateral Throughout] Respiratory 25 H Rate Respiratory Rate [Anterior Bilateral Throughout] Blood Pressure 86/50 O2 Sat by Pulse 95 Oximetry - Labs CBC & Chem 7: 09/06/17 06:15 09/06/17 06:15 Labs: Abnormal lab results 09/05/17 09/05/17 09/05/17 Range/Units 16:30 17:42 19:55 RBC (3.65-5.03) M/mm3 Hgb (11.8-15.2) gm/dl Hct (35.5-45.6) % RDW (13.2-15.2) % Plt Count (140-440) K/mm3 Seg Neuts % (Manual) (40.0-70.0) % Lymphocytes % (Manual) (13.4-35.0) % Seg Neutrophils # Man (1.8-7.7) K/mm3 Lymphocytes # (Manual) (1.2-5.4) K/mm3 POC ABG pCO2 (35-45) POC ABG pO2 (80-105) Sodium (137-145) mmol/L Chloride (98-107) mmol/L Carbon Dioxide (22-30) mmol/L BUN (9-20) mg/dL Glucose (75-100) mg/dL POC Glucose 183 H (70-105) Lactic Acid 3.50 H* 3.60 H* (0.7-2.0) mmol/L Calcium (8.4-10.2) mg/dL AST (5-40) units/L ALT (7-56) units/L Albumin (3.9-5) g/dL 09/05/17 09/06/17 09/06/17 Range/Units 23:29 03:58 05:33 RBC (3.65-5.03) M/mm3 Hgb (11.8-15.2) gm/dl Hct (35.5-45.6) % RDW (13.2-15.2) % Plt Count (140-440) K/mm3 Seg Neuts % (Manual) (40.0-70.0) % Lymphocytes % (Manual) (13.4-35.0) % Seg Neutrophils # Man (1.8-7.7) K/mm3 Lymphocytes # (Manual) (1.2-5.4) K/mm3 POC ABG pCO2 62.5 H (35-45) POC ABG pO2 141 H (80-105) Sodium (137-145) mmol/L Chloride (98-107) mmol/L Carbon Dioxide (22-30) mmol/L BUN (9-20) mg/dL Glucose (75-100) mg/dL POC Glucose 203 H 207 H (70-105) Lactic Acid (0.7-2.0) mmol/L Calcium (8.4-10.2) mg/dL AST (5-40) units/L ALT (7-56) units/L Albumin (3.9-5) g/dL 09/06/17 09/06/17 09/06/17 Range/Units 06:15 06:15 06:15 RBC 3.26 L (3.65-5.03) M/mm3 Hgb 9.0 L (11.8-15.2) gm/dl Hct 27.5 L (35.5-45.6) % RDW 16.7 H (13.2-15.2) % Plt Count 104 L (140-440) K/mm3 Seg Neuts % (Manual) 97.0 H (40.0-70.0) % Lymphocytes % (Manual) 2.0 L (13.4-35.0) % Seg Neutrophils # Man 8.1 H (1.8-7.7) K/mm3 Lymphocytes # (Manual) 0.2 L (1.2-5.4) K/mm3 POC ABG pCO2 (35-45) POC ABG pO2 (80-105) Sodium 150 H (137-145) mmol/L Chloride 110.9 H (98-107) mmol/L Carbon Dioxide 31 H (22-30) mmol/L BUN 34 H (9-20) mg/dL Glucose 207 H (75-100) mg/dL POC Glucose (70-105) Lactic Acid 2.90 H* (0.7-2.0) mmol/L Calcium 8.2 L (8.4-10.2) mg/dL AST 346 H (5-40) units/L ALT 634 H (7-56) units/L Albumin 1.5 L (3.9-5) g/dL 09/06/17 Range/Units 08:03 RBC (3.65-5.03) M/mm3 Hgb (11.8-15.2) gm/dl Hct (35.5-45.6) % RDW (13.2-15.2) % Plt Count (140-440) K/mm3 Seg Neuts % (Manual) (40.0-70.0) % Lymphocytes % (Manual) (13.4-35.0) % Seg Neutrophils # Man (1.8-7.7) K/mm3 Lymphocytes # (Manual) (1.2-5.4) K/mm3 POC ABG pCO2 (35-45) POC ABG pO2 (80-105) Sodium (137-145) mmol/L Chloride (98-107) mmol/L Carbon Dioxide (22-30) mmol/L BUN (9-20) mg/dL Glucose (75-100) mg/dL POC Glucose (70-105) Lactic Acid 2.90 H* (0.7-2.0) mmol/L Calcium (8.4-10.2) mg/dL AST (5-40) units/L ALT (7-56) units/L Albumin (3.9-5) g/dL
--- NOTE | 2017-09-06 17:01 | Progress Note ---
Assessment and Plan Imp: 1. E.coli bacteremia of ? source 2. Bilateral pneumonia 3. Pleural effusions, more likely volume-related but could be due to #2 4. Acute respiratory failure, hypoxia 5. Severe sepsis with septic shock 6. Lactic acidosis 7. HIV/AIDS, poorly compliant with HAART for past > 1 year per [facility]; last CD4 per [facility] was 133 8. Dilated CMP 9. R/o DIC Rec: 1. ABX per ID; E.coli is sens to carbapenems; f/u pending cultures 2. Bolus prn but try to hold off on more aggressive fluid administration given worsening CXR which likely represents combination of cardiogenic pulm edema + ARDS -> stop bicarb drip; increase free water per NG 3. Wean pressors to keep goal MAP > 65 4. Too hypoxic for bronch/BAL; keep PEEP at 10 and wean FiO2; trach aspirate is negative for PCP; on Bactrim/steroids empirically 5. Plan diuresis once off pressors 6. Needs CT a/p when more stable re: liver lesions 7. GI and DVT PPx; increase TFs to goal 8. Cont. current minute ventilation Plan of care reviewed w/ sister, she understands/agrees CCT 31 minutes Subjective Date of service: 09/06/17 Principal diagnosis: Septic shock, acute hypoxemic respiratory failure, [place] Interval history: No events. Sedated. On FiO2 of 100% and PEEP of 10. Only on Vasopressin as of this morning. Active Medications Acetaminophen (Tylenol) 650 mg W[place] Q4H PRN PRN Reason: Pain, Mild (1-3) Last Admin: 09/02/17 22:03 Dose: 650 mg Acetaminophen (Tylenol) 650 mg FEEDTUBE Q6H PRN PRN Reason: Pain, Mild (1-3) Last Admin: 09/05/17 13:54 Dose: 650 mg Al Hydrox/Mg Hydrox/Simethicone (Alum-Mag Hydrox-Simeth [phone]/5ml) 30 ml PO Q4H PRN PRN Reason: Indigestion Albuterol (Proventil) 2.5 mg IH Q3HRT PRN PRN Reason: Shortness Of Breath Albuterol/Ipratropium (Duoneb *Not For Prn Use*) 1 ampul IH Q4HRT [facility] Last Admin: 09/06/17 15:54 Dose: 1 ampul Lipase/Protease/Amylase (Pancrekeline Dr 10,500 Unit) 1 each FEEDTUBE PRN PRN PRN Reason: For Clogged Feeding Tube Bisacodyl (Dulcolax) 10 mg WV QDAY PRN PRN Reason: constipation unrelieved by MOM Dextrose (D50w (25gm) Syringe) 50 ml IV PRN PRN PRN Reason: Hypoglycemia Last Admin: 09/02/17 23:42 Dose: 50 ml Enoxaparin Sodium (Lovenox) 40 mg SUB-Q QDAY STEPHANIE Last Admin: 09/06/17 09:42 Dose: 40 mg Famotidine (Pepcid) 20 mg IV BID STEPHANIE Last Admin: 09/06/17 09:41 Dose: 20 mg Hydrophilic Ointment (Vaseline Lip Therapy) 1 applic TP Q2HR PRN PRN Reason: Dry Lips Last Admin: 09/02/17 10:15 Dose: 1 applic Fentanyl Citrate (Fentanyl Drip Premix) 2,000 mcg in 100 mls @ 2.903 mls/hr IV TITR STEPHANIE; 1 MCG/KG/HR PRN Reason: Protocol Last Admin: 09/06/17 16:19 Dose: 2 mcg/kg/hr, 5.806 mls/hr Vancomycin HCl 750 mg/ Sodium (Chloride) 257.5 mls @ 166.667 mls/hr IV Q12H STEPHANIE Last Admin: 09/06/17 06:08 Dose: 166.667 mls/hr Vasopressin 20 unit/ Sodium (Chloride) 101 mls @ 9.09 mls/hr IV TITR STEPHANIE; 0.03 UNITS/MIN PRN Reason: Protocol Last Titration: 09/06/17 11:30 Dose: 0 units/min, 0 mls/hr Meropenem 1,000 mg/ Sodium (Chloride) 100 mls @ 100 mls/hr IV Q8H STEPHANIE PRN Reason: Protocol Last Admin: 09/06/17 16:09 Dose: 100 mls/hr Fluconazole (Diflucan) 200 mg in 100 mls @ 100 mls/hr IV Q24HR STEPHANIE PRN Reason: Protocol Last Admin: 09/06/17 10:30 Dose: 100 mls/hr Norepinephrine 8 mg/ Sodium (Chloride) 250 mls @ 3.75 mls/hr IV TITR STEPHANIE; 2 MCG /MIN PRN Reason: Protocol Last Titration: 09/06/17 06:10 Dose: 0 mcg/min, 0 mls/hr Phenylephrine HCl 100 mg/ (Sodium Chloride) 100 mls @ 3 mls/hr IV TITR STEPHANIE; 50 MCG/MIN PRN Reason: Protocol Last Titration: 09/05/17 18:00 Dose: 0 mcg/min, 0 mls/hr Azithromycin 500 mg/ Sodium (Chloride) 250 mls @ 250 mls/hr IV Q24HR [facility] Last Admin: 09/06/17 13:20 Dose: 250 mls/hr Midazolam HCl 100 mg/ Sodium (Chloride) 100 mls @ 2 mls/hr IV TITR STEPHANIE; 2 MG/HR PRN Reason: Protocol Last Titration: 09/06/17 16:15 Dose: 0.5 mg/hr, 0.5 mls/hr Insulin Aspart (Novolog) 0 units SUB-Q Q6HR STEPHANIE PRN Reason: Protocol Last Admin: 09/06/17 12:39 Dose: 3 units Methylprednisolone Sodium Succinate (Solu-Medrol) 40 mg IV Q8H [facility] Last Admin: 09/06/17 13:01 Dose: 40 mg Multi-Ingred Cream/Lotion/Oil/Oint (Artificial Tears Ophth Oint) 1 applic OU Q4HR PRN PRN Reason: Dry Eye(s) Naloxone HCl (Narcan 0.4 Mg/1 Ml) 0.1 mg IV Q2MIN PRN PRN Reason: Res Rate </= 8 or 02 SAT < 92% Simple Syrup (Simple Syrup) 15 ml FEEDTUBE PRN PRN PRN Reason: Hypoglycemia Simple Syrup (Simple Syrup) 30 ml FEEDTUBE PRN PRN PRN Reason: Hypoglycemia Sodium Bicarbonate (Sodium Bicarbonate) 325 mg FEEDTUBE PRN PRN PRN Reason: For Clogged Feeding Tube Trimethoprim/Sulfamethoxazole (Bactrim Ds) 2 each PO Q8HR [facility] Last Admin: 09/06/17 13:20 Dose: 2 each Vancomycin HCl (Vancomycin Pharmacy To Dose) 1 each IV PKCONSULT STEHPANIE PRN Reason: Protocol Objective Vital Signs - 12hr 09/06/17 09/06/17 09/06/17 05:01 05:15 05:30 Temperature Pulse Rate 98 H 100 H 95 H Pulse Rate [ Anterior Bilateral Throughout] Respiratory 34 H 23 20 Rate Respiratory Rate [Anterior Bilateral Throughout] Respiratory Rate [ Generalized] Blood Pressure 149/99 122/81 132/80 O2 Sat by Pulse 95 100 100 Oximetry 09/06/17 09/06/17 09/06/17 05:45 06:00 06:15 Temperature Pulse Rate 95 H 111 H 78 Pulse Rate [ Anterior Bilateral Throughout] Respiratory 22 28 H 25 H Rate Respiratory Rate [Anterior Bilateral Throughout] Respiratory Rate [ Generalized] Blood Pressure 112/69 156/82 127/71 O2 Sat by Pulse 100 91 94 Oximetry 09/06/17 09/06/17 09/06/17 06:30 06:45 07:01 Temperature Pulse Rate 104 H 118 H 90 Pulse Rate [ Anterior Bilateral Throughout] Respiratory 25 H 39 H 23 Rate Respiratory Rate [Anterior Bilateral Throughout] Respiratory Rate [ Generalized] Blood Pressure 114/73 153/79 118/76 O2 Sat by Pulse 98 88 92 Oximetry 09/06/17 09/06/17 09/06/17 07:15 07:30 07:45 Temperature Pulse Rate 98 H 94 H 98 H Pulse Rate [ Anterior Bilateral Throughout] Respiratory 22 25 H 27 H Rate Respiratory Rate [Anterior Bilateral Throughout] Respiratory Rate [ Generalized] Blood Pressure 103/64 113/70 127/82 O2 Sat by Pulse 98 97 91 Oximetry 09/06/17 09/06/17 09/06/17 08:00 08:07 08:15 Temperature 97.8 F Pulse Rate 97 H 98 H 98 H Pulse Rate [ Anterior Bilateral Throughout] Respiratory 21 23 Rate Respiratory Rate [Anterior Bilateral Throughout] Respiratory Rate [ Generalized] Blood Pressure 99/59 127/82 100/63 O2 Sat by Pulse 96 91 97 Oximetry 09/06/17 09/06/17 09/06/17 08:31 08:37 08:45 Temperature Pulse Rate 108 H 98 H Pulse Rate [ 100 H Anterior Bilateral Throughout] Respiratory 24 22 Rate Respiratory 26 H Rate [Anterior Bilateral Throughout] Respiratory Rate [ Generalized] Blood Pressure 135/91 103/65 O2 Sat by Pulse 98 97 Oximetry 09/06/17 09/06/17 09/06/17 09:00 09:09 09:15 Temperature Pulse Rate 94 H 93 H Pulse Rate [ 91 H Anterior Bilateral Throughout] Respiratory 22 22 Rate Respiratory 22 Rate [Anterior Bilateral Throughout] Respiratory Rate [ Generalized] Blood Pressure 97/61 103/61 O2 Sat by Pulse 97 100 Oximetry 09/06/17 09/06/17 09/06/17 09:30 09:45 10:00 Temperature Pulse Rate 95 H 109 H 115 H Pulse Rate [ Anterior Bilateral Throughout] Respiratory 22 32 H 26 H Rate Respiratory Rate [Anterior Bilateral Throughout] Respiratory 22 Rate [ Generalized] Blood Pressure 93/57 148/80 153/78 O2 Sat by Pulse 100 91 88 Oximetry 09/06/17 09/06/17 09/06/17 10:15 10:30 10:45 Temperature Pulse Rate 119 H 132 H 102 H Pulse Rate [ Anterior Bilateral Throughout] Respiratory 27 H 25 H 23 Rate Respiratory Rate [Anterior Bilateral Throughout] Respiratory Rate [ Generalized] Blood Pressure 162/86 170/85 114/81 O2 Sat by Pulse 87 87 96 Oximetry 09/06/17 09/06/17 09/06/17 11:00 11:15 11:30 Temperature Pulse Rate 111 H 99 H 104 H Pulse Rate [ Anterior Bilateral Throughout] Respiratory 21 26 H 19 Rate Respiratory Rate [Anterior Bilateral Throughout] Respiratory Rate [ Generalized] Blood Pressure 148/95 107/71 122/86 O2 Sat by Pulse 89 94 92 Oximetry 09/06/17 09/06/17 09/06/17 11:45 12:00 12:15 Temperature Pulse Rate 87 116 H 118 H Pulse Rate [ Anterior Bilateral Throughout] Respiratory 24 23 22 Rate Respiratory Rate [Anterior Bilateral Throughout] Respiratory Rate [ Generalized] Blood Pressure 106/76 104/86 118/79 O2 Sat by Pulse 96 88 86 Oximetry 09/06/17 09/06/17 09/06/17 12:28 12:30 12:40 Temperature Pulse Rate 110 H 121 H Pulse Rate [ 118 H Anterior Bilateral Throughout] Respiratory 23 Rate Respiratory 22 Rate [Anterior Bilateral Throughout] Respiratory Rate [ Generalized] Blood Pressure 118/79 128/99 O2 Sat by Pulse 91 88 Oximetry 09/06/17 09/06/17 09/06/17 12:45 12:55 13:00 Temperature 98.1 F Pulse Rate 113 H 119 H Pulse Rate [ 116 H Anterior Bilateral Throughout] Respiratory 22 33 H Rate Respiratory 20 Rate [Anterior Bilateral Throughout] Respiratory Rate [ Generalized] Blood Pressure 99/59 131/77 O2 Sat by Pulse 94 88 Oximetry 09/06/17 09/06/17 09/06/17 13:15 13:30 13:45 Temperature Pulse Rate 125 H 121 H 149 H Pulse Rate [ Anterior Bilateral Throughout] Respiratory 25 H 28 H 22 Rate Respiratory Rate [Anterior Bilateral Throughout] Respiratory Rate [ Generalized] Blood Pressure 131/78 125/78 114/66 O2 Sat by Pulse 86 90 87 Oximetry 09/06/17 09/06/17 09/06/17 14:00 14:15 14:30 Temperature Pulse Rate 115 H 117 H 116 H Pulse Rate [ Anterior Bilateral Throughout] Respiratory 19 28 H 17 Rate Respiratory Rate [Anterior Bilateral Throughout] Respiratory Rate [ Generalized] Blood Pressure 106/64 97/63 88/54 O2 Sat by Pulse 91 100 99 Oximetry 09/06/17 09/06/17 09/06/17 14:42 14:45 15:00 Temperature Pulse Rate 98 H 115 H 110 H Pulse Rate [ Anterior Bilateral Throughout] Respiratory 22 25 H Rate Respiratory Rate [Anterior Bilateral Throughout] Respiratory Rate [ Generalized] Blood Pressure 88/24 93/47 86/50 O2 Sat by Pulse 122 H 97 95 Oximetry 09/06/17 09/06/17 09/06/17 15:55 15:58 16:00 Temperature 98 F Pulse Rate 100 H Pulse Rate [ 102 H Anterior Bilateral Throughout] Respiratory Rate Respiratory 24 Rate [Anterior Bilateral Throughout] Respiratory Rate [ Generalized] Blood Pressure 86/50 O2 Sat by Pulse 96 Oximetry 09/06/17 16:13 Temperature Pulse Rate Pulse Rate [ 100 H Anterior Bilateral Throughout] Respiratory Rate Respiratory 21 Rate [Anterior Bilateral Throughout] Respiratory Rate [ Generalized] Blood Pressure O2 Sat by Pulse Oximetry Constitutional: other (critically ill on vent, sedated) Eyes: non-icteric ENT: other (orally intubated and sedated) Neck: supple Effort: normal Ascultation: Bilateral: other (coarse BS bilaterally) Percussion: Bilateral: not dull Cardiovascular: regular rate and rhythm (sinus tach) Gastrointestinal: hypoactive bowel sounds, soft, non-tender, non-distended Extremities: no cyanosis, no edema, pink and warm Neurologic: normal mental status, non-focal exam, pupils equal and round, CN II- XII normal Psychiatric: other (unable to assess) CBC and BMP: 09/06/17 06:15 09/06/17 06:15 ABG, PT/INR, D-dimer: ABG POC ABG pH 7.357 (7.35-7.45) 09/06/17 03:58 POC ABG pCO2 62.5 (35-45) H 09/06/17 03:58 POC ABG pO2 141 (80-105) H 09/06/17 03:58 POC ABG HCO3 35.1 09/06/17 03:58 POC ABG Total CO2 37 09/06/17 03:58 POC ABG O2 Sat 99 09/06/17 03:58 PT/INR, D-dimer PT 28.4 Sec. (12.2-14.9) H 09/04/17 04:00 INR 2.47 (0.87-1.13) H 09/04/17 04:00 D-Dimer 976.43 ng/mlDDU (0-234) H 09/01/17 23:27 Abnormal lab findings: Abnormal Labs 09/01/17 09/01/17 09/01/17 19:00 19:00 23:27 WBC RBC Hgb 10.9 L Hct 32.3 L MCV 83 L RDW 15.6 H Plt Count [place] % (Auto) Seg Neutrophils % Seg Neuts % (Manual) Lymphocytes % (Manual) Nucleated RBC % Seg Neutrophils # Man Lymphocytes # (Manual) PT INR Fibrinogen D-Dimer 976.43 H POC ABG pH POC ABG pCO2 POC ABG pO2 Sodium 133 L Potassium Chloride 96.4 L Carbon Dioxide BUN Glucose 113 H POC Glucose Lactic Acid Calcium Phosphorus Magnesium AST ALT Lactate Dehydrogenase C-Reactive Protein Total Protein Albumin Lipase 09/01/17 09/02/17 09/02/17 23:27 01:25 07:36 WBC 2.2 L RBC 3.41 L Hgb 9.6 L Hct 28.9 L MCV RDW 16.0 H Plt Count [place] % (Auto) 12.6 H Seg Neutrophils % 70.4 H Seg Neuts % (Manual) Lymphocytes % (Manual) Nucleated RBC % Seg Neutrophils # Man 1.1 L Lymphocytes # (Manual) 0.6 L PT INR Fibrinogen D-Dimer POC ABG pH POC ABG pCO2 POC ABG pO2 Sodium Potassium Chloride Carbon Dioxide BUN Glucose POC Glucose Lactic Acid 3.30 H* 4.10 H* Calcium Phosphorus Magnesium AST ALT Lactate Dehydrogenase C-Reactive Protein Total Protein Albumin Lipase 09/02/17 09/02/17 09/02/17 07:36 07:36 07:36 WBC RBC Hgb Hct MCV RDW Plt Count [place] % (Auto) Seg Neutrophils % Seg Neuts % (Manual) Lymphocytes % (Manual) Nucleated RBC % Seg Neutrophils # Man Lymphocytes # (Manual) PT 18.6 H INR 1.46 H Fibrinogen D-Dimer POC ABG pH POC ABG pCO2 POC ABG pO2 Sodium 136 L Potassium Chloride Carbon Dioxide BUN Glucose POC Glucose Lactic Acid 3.80 H* Calcium Phosphorus Magnesium 1.20 L AST ALT Lactate Dehydrogenase C-Reactive Protein Total Protein 9.1 H Albumin 2.0 L Lipase 09/02/17 09/02/17 09/02/17 08:49 09:40 11:33 WBC RBC Hgb Hct MCV RDW Plt Count [place] % (Auto) Seg Neutrophils % Seg Neuts % (Manual) Lymphocytes % (Manual) Nucleated RBC % Seg Neutrophils # Man Lymphocytes # (Manual) PT INR Fibrinogen D-Dimer POC ABG pH 7.313 L POC ABG pCO2 POC ABG pO2 116 H Sodium Potassium Chloride Carbon Dioxide BUN Glucose POC Glucose Lactic Acid 3.60 H* 5.20 H* Calcium Phosphorus Magnesium AST ALT Lactate Dehydrogenase C-Reactive Protein Total Protein Albumin Lipase 09/02/17 09/02/17 09/02/17 19:34 23:37 23:40 WBC RBC Hgb Hct MCV RDW Plt Count [place] % (Auto) Seg Neutrophils % Seg Neuts % (Manual) Lymphocytes % (Manual) Nucleated RBC % Seg Neutrophils # Man Lymphocytes # (Manual) PT INR Fibrinogen D-Dimer POC ABG pH POC ABG pCO2 POC ABG pO2 Sodium Potassium Chloride Carbon Dioxide BUN Glucose 59 L POC Glucose 47 L Lactic Acid Calcium Phosphorus Magnesium AST ALT Lactate Dehydrogenase C-Reactive Protein 22.30 H Total Protein Albumin Lipase 09/03/17 09/03/17 09/03/17 00:06 05:15 05:15 WBC RBC 3.59 L Hgb 10.1 L Hct 31.5 L MCV RDW 18.0 H Plt Count [place] % (Auto) Seg Neutrophils % Seg Neuts % (Manual) Lymphocytes % (Manual) 1.0 L Nucleated RBC % 1.0 H Seg Neutrophils # Man Lymphocytes # (Manual) 0.1 L PT INR Fibrinogen D-Dimer POC ABG pH POC ABG pCO2 POC ABG pO2 Sodium Potassium Chloride Carbon Dioxide BUN Glucose POC Glucose 144 H Lactic Acid 9.10 H* Calcium Phosphorus Magnesium AST ALT Lactate Dehydrogenase C-Reactive Protein Total Protein Albumin Lipase 09/03/17 09/03/17 09/03/17 05:15 05:55 07:40 WBC RBC Hgb Hct MCV RDW Plt Count [place] % (Auto) Seg Neutrophils % Seg Neuts % (Manual) Lymphocytes % (Manual) Nucleated RBC % Seg Neutrophils # Man Lymphocytes # (Manual) PT INR Fibrinogen D-Dimer POC ABG pH 6.999 L POC ABG pCO2 POC ABG pO2 64 L Sodium Potassium 5.6 H D Chloride 108.4 H Carbon Dioxide 11 L D BUN 30 H Glucose 115 H POC Glucose Lactic Acid 9.20 H* Calcium 7.3 L D Phosphorus 6.40 H Magnesium AST 88 H ALT Lactate Dehydrogenase C-Reactive Protein Total Protein Albumin 1.7 L Lipase 09/03/17 09/03/17 09/03/17 09:55 12:03 13:17 WBC RBC Hgb Hct MCV RDW Plt Count [place] % (Auto) Seg Neutrophils % Seg Neuts % (Manual) Lymphocytes % (Manual) Nucleated RBC % Seg Neutrophils # Man Lymphocytes # (Manual) PT INR Fibrinogen D-Dimer POC ABG pH POC ABG pCO2 POC ABG pO2 Sodium Potassium Chloride Carbon Dioxide BUN Glucose POC Glucose 155 H Lactic Acid 9.50 H* 9.90 H* Calcium Phosphorus Magnesium AST ALT Lactate Dehydrogenase C-Reactive Protein Total Protein Albumin Lipase 09/03/17 09/03/17 09/03/17 15:55 17:13 18:02 WBC RBC Hgb Hct MCV RDW Plt Count [place] % (Auto) Seg Neutrophils % Seg Neuts % (Manual) Lymphocytes % (Manual) Nucleated RBC % Seg Neutrophils # Man Lymphocytes # (Manual) PT INR Fibrinogen D-Dimer POC ABG pH POC ABG pCO2 POC ABG pO2 Sodium Potassium Chloride Carbon Dioxide BUN Glucose POC Glucose 171 H Lactic Acid 9.60 H* 9.00 H* Calcium Phosphorus Magnesium AST ALT Lactate Dehydrogenase C-Reactive Protein Total Protein Albumin Lipase 09/03/17 09/03/17 09/04/17 20:29 23:02 04:00 WBC RBC Hgb Hct MCV RDW Plt Count [place] % (Auto) Seg Neutrophils % Seg Neuts % (Manual) Lymphocytes % (Manual) Nucleated RBC % Seg Neutrophils # Man Lymphocytes # (Manual) PT INR Fibrinogen D-Dimer POC ABG pH POC ABG pCO2 POC ABG pO2 Sodium Potassium Chloride Carbon Dioxide BUN Glucose POC Glucose 156 H Lactic Acid 9.00 H* 3.00 H* Calcium Phosphorus Magnesium AST ALT Lactate Dehydrogenase C-Reactive Protein Total Protein Albumin Lipase 09/04/17 09/04/17 09/04/17 04:00 04:00 09:00 WBC RBC 3.44 L Hgb 9.6 L Hct 29.0 L MCV RDW 17.4 H Plt Count 124 L [place] % (Auto) Seg Neutrophils % Seg Neuts % (Manual) 91.0 H Lymphocytes % (Manual) 3.0 L Nucleated RBC % 2.0 H Seg Neutrophils # Man 9.9 H Lymphocytes # (Manual) 0.3 L PT 28.4 H INR 2.47 H Fibrinogen D-Dimer POC ABG pH POC ABG pCO2 POC ABG pO2 Sodium Potassium Chloride 110.1 H Carbon Dioxide BUN 29 H Glucose 192 H POC Glucose Lactic Acid Calcium 6.8 L Phosphorus Magnesium AST 361 H ALT 315 H Lactate Dehydrogenase C-Reactive Protein Total Protein Albumin 1.6 L Lipase 09/04/17 09/04/17 09/04/17 09:00 12:00 17:23 WBC RBC Hgb Hct MCV RDW Plt Count [place] % (Auto) Seg Neutrophils % Seg Neuts % (Manual) Lymphocytes % (Manual) Nucleated RBC % Seg Neutrophils # Man Lymphocytes # (Manual) PT INR Fibrinogen 611 H D-Dimer POC ABG pH POC ABG pCO2 POC ABG pO2 Sodium Potassium Chloride Carbon Dioxide BUN Glucose POC Glucose Lactic Acid 2.10 H* 3.40 H* Calcium Phosphorus Magnesium AST ALT Lactate Dehydrogenase C-Reactive Protein Total Protein Albumin Lipase 09/04/17 09/04/17 09/04/17 17:23 17:47 22:30 WBC RBC Hgb Hct MCV RDW Plt Count [place] % (Auto) Seg Neutrophils % Seg Neuts % (Manual) Lymphocytes % (Manual) Nucleated RBC % Seg Neutrophils # Man Lymphocytes # (Manual) PT INR Fibrinogen D-Dimer POC ABG pH POC ABG pCO2 POC ABG pO2 Sodium Potassium Chloride Carbon Dioxide BUN Glucose POC Glucose 107 H Lactic Acid 4.70 H* Calcium Phosphorus Magnesium AST ALT Lactate Dehydrogenase C-Reactive Protein Total Protein Albumin Lipase 12 L 09/04/17 09/05/17 09/05/17 23:08 05:31 06:00 WBC RBC Hgb Hct MCV RDW Plt Count [place] % (Auto) Seg Neutrophils % Seg Neuts % (Manual) Lymphocytes % (Manual) Nucleated RBC % Seg Neutrophils # Man Lymphocytes # (Manual) PT INR Fibrinogen D-Dimer POC ABG pH 7.226 L POC ABG pCO2 65.4 H POC ABG pO2 61 L Sodium Potassium Chloride 112.7 H Carbon Dioxide BUN 31 H Glucose 132 H POC Glucose 109 H Lactic Acid Calcium 7.7 L Phosphorus Magnesium AST 834 H ALT 898 H Lactate Dehydrogenase C-Reactive Protein Total Protein Albumin 1.4 L Lipase 09/05/17 09/05/17 09/05/17 06:00 06:35 10:26 WBC RBC Hgb Hct MCV RDW Plt Count [place] % (Auto) Seg Neutrophils % Seg Neuts % (Manual) Lymphocytes % (Manual) Nucleated RBC % Seg Neutrophils # Man Lymphocytes # (Manual) PT INR Fibrinogen D-Dimer POC ABG pH 7.311 L POC ABG pCO2 58.5 H POC ABG pO2 213 H Sodium Potassium Chloride Carbon Dioxide BUN Glucose POC Glucose 110 H Lactic Acid 4.50 H* Calcium Phosphorus Magnesium AST ALT Lactate Dehydrogenase C-Reactive Protein Total Protein Albumin Lipase 09/05/17 09/05/17 09/05/17 10:55 10:55 10:55 WBC 11.1 H RBC 3.38 L Hgb 9.3 L Hct 28.7 L MCV RDW 16.7 H Plt Count 118 L [place] % (Auto) Seg Neutrophils % Seg Neuts % (Manual) 92.0 H Lymphocytes % (Manual) 4.0 L Nucleated RBC % 2.0 H Seg Neutrophils # Man 10.2 H Lymphocytes # (Manual) 0.4 L PT INR Fibrinogen D-Dimer POC ABG pH POC ABG pCO2 POC ABG pO2 Sodium Potassium Chloride Carbon Dioxide BUN Glucose POC Glucose Lactic Acid 3.60 H* Calcium Phosphorus Magnesium AST ALT Lactate Dehydrogenase 571 H C-Reactive Protein Total Protein Albumin Lipase 09/05/17 09/05/17 09/05/17 12:05 16:30 17:42 WBC RBC Hgb Hct MCV RDW Plt Count [place] % (Auto) Seg Neutrophils % Seg Neuts % (Manual) Lymphocytes % (Manual) Nucleated RBC % Seg Neutrophils # Man Lymphocytes # (Manual) PT INR Fibrinogen D-Dimer POC ABG pH POC ABG pCO2 POC ABG pO2 Sodium Potassium Chloride Carbon Dioxide BUN Glucose POC Glucose 148 H 183 H Lactic Acid 3.50 H* Calcium Phosphorus Magnesium AST ALT Lactate Dehydrogenase C-Reactive Protein Total Protein Albumin Lipase 09/05/17 09/05/17 09/06/17 19:55 23:29 03:58 WBC RBC Hgb Hct MCV RDW Plt Count [place] % (Auto) Seg Neutrophils % Seg Neuts % (Manual) Lymphocytes % (Manual) Nucleated RBC % Seg Neutrophils # Man Lymphocytes # (Manual) PT INR Fibrinogen D-Dimer POC ABG pH POC ABG pCO2 62.5 H POC ABG pO2 141 H Sodium Potassium Chloride Carbon Dioxide BUN Glucose POC Glucose 203 H Lactic Acid 3.60 H* Calcium Phosphorus Magnesium AST ALT Lactate Dehydrogenase C-Reactive Protein Total Protein Albumin Lipase 09/06/17 09/06/17 09/06/17 05:33 06:15 06:15 WBC RBC Hgb Hct MCV RDW Plt Count [place] % (Auto) Seg Neutrophils % Seg Neuts % (Manual) Lymphocytes % (Manual) Nucleated RBC % Seg Neutrophils # Man Lymphocytes # (Manual) PT INR Fibrinogen D-Dimer POC ABG pH POC ABG pCO2 POC ABG pO2 Sodium 150 H Potassium Chloride 110.9 H Carbon Dioxide 31 H BUN 34 H Glucose 207 H POC Glucose 207 H Lactic Acid 2.90 H* Calcium 8.2 L Phosphorus Magnesium AST 346 H ALT 634 H Lactate Dehydrogenase C-Reactive Protein Total Protein Albumin 1.5 L Lipase 09/06/17 09/06/17 06:15 08:03 WBC RBC 3.26 L Hgb 9.0 L Hct 27.5 L MCV RDW 16.7 H Plt Count 104 L [place] % (Auto) Seg Neutrophils % Seg Neuts % (Manual) 97.0 H Lymphocytes % (Manual) 2.0 L Nucleated RBC % Seg Neutrophils # Man 8.1 H Lymphocytes # (Manual) 0.2 L PT INR Fibrinogen D-Dimer POC ABG pH POC ABG pCO2 POC ABG pO2 Sodium Potassium Chloride Carbon Dioxide BUN Glucose POC Glucose Lactic Acid 2.90 H* Calcium Phosphorus Magnesium AST ALT Lactate Dehydrogenase C-Reactive Protein Total Protein Albumin Lipase Chest x-ray: report reviewed, image reviewed (mild improvement in bilateral infiltrates)
[2017-09-06] MEDS ORDERED: LASIX IV ONE (21:43)
[2017-09-07] MEDS: NOVOLOG SUB-Q SCH ×4 (00:37→18:12)
[2017-09-07] MEDS: DUONEB *Not for PRN Use IH SCH ×6 (04:18→20:20)
[2017-09-07 05:28] LABS: Alanine Aminotransferase 381 units/L (7-56); Albumin 1.3 g/dL (3.9-5); BUN/Creatinine Ratio 39; Blood Urea Nitrogen 35 mg/dL (9-20); Calcium 8.6 mg/dL (8.4-10.2); Hemolysis Index 1
--- NOTE | 2017-09-07 05:58 | XRay Report ---
FINAL REPORT EXAM: XR CHEST 1V AP HISTORY: follow up respiratory failure TECHNIQUE: AP portable view(s) of the chest obtained. PRIORS: 09/06/2017 FINDINGS: Endotracheal tube terminates approximately 5.5 cm from the mitchell. Enteric tube courses below the diaphragm and off of the inferior field of view. Right IJ line tip terminates over the superior vena cava. Additional lines and tubing are external to the patient. No mediastinal shift. Cardiac silhouette is unchanged. No pneumothorax. Right greater than left pleural effusion and patchy bilateral opacities are not significantly changed. No acute skeletal finding. IMPRESSION: Satisfactory appearance of patient's support apparatus without pneumothorax or other significant change compared to 09/06/2017.
[2017-09-07] MEDS: VANCOMYCIN 750 MG in NACL 0.9% 250ML 250 ML IV SCH ×2 (06:00→18:07)
[2017-09-07] MEDS: fentaNYL DRIP Premix 2,000 MCG/100 ML BAG IV SCH ×2 (06:31→21:00)
[2017-09-07] MEDS: BACTRIM DS PO SCH ×3 (06:35→23:42)
[2017-09-07 08:29] LABS: Hemoglobin 8.4 gm/dl (11.8-15.2); Mean Corpuscular HGB Conc 32 % (32-34); Mean Corpuscular Hemoglobin 27 pg (28-32); Mean Corpuscular Volume 84 fl (84-94); Platelet Count 109 K/mm3 (140-440); Red Blood Count 3.11 M/mm3 (3.65-5.03); Red Cell Distribution Width 16.2 % (13.2-15.2)
--- NOTE | 2017-09-07 08:59 | Progress Note ---
Assessment and Plan Assessment: 1) Severe Sepsis with septic shock: Present on admission, manifested by fever, tachycardia, hypotension, increased lactate. Etiology most likely E coli septicemia and pneumonia. -CRP 22.30. -Lactic acid better as of 09/06. Not checked today. -On levophed. -Afebrile. 2) E. coli septicemia: unknown source ? Pneumonia ? UTI (UCx negative) ? GI -Blood cultures 09/01 positive 4 of 4 bottles -Repeat Blood cultures 09/04 NGTD. -TTE 09/02 no vegetations. 3) Bilateral pneumonia: recently treated at [facility]. ? Pneumocystis pneumonia (LDH 571). -Tracheal asp with normal fiordaliza. - CT chest 09/02 with extensive bilateral pulmonary opacities due to edema vs PNA. Also component of atelectasis. Bilateral pleural effusions. - Legionella and Strep pneumo ag in urine negative 4) Acute respiratory failure. Intubated. From pneumonia. 5) HIV/AIDS, poorly compliant with HAART for past > 1 year per [facility]; last CD4 per [facility] was 133 6) Abnormal CT A/P with numerous liver lesions suspicious for metastatic liver disease, moderate ascites, possible partial vein thrombosis. 7) Encephalopathy. 8) Transaminitis. Could be due to shock liver. Improved. ?hep B. -Hep B Surface ag positive -Hep C negative 9) Acute Thrombocytopenia. Improved. Plan: -f/u blood cultures. -continue meropenem (D6), vancomycin (D6), fluconazole (D5), bactrim (D3) and azithromycin (D2). -Will f/u confirmatory HIV test, HIV-VL, genotype, CD4 count, HLA [id number], quantiferon, RPR, Hep B Surface antibody, Core antibody IgG, e antigen/antibody and hep B viral load. -Will f/u fungal blood cultures, AFB blood cultures. -Will f/u Pneumocystis smear. -Check CRP in AM. -As per pulmonary to hypoxic for bronch/BAL. -Consider hem/onc consult for possible underlying malignancy. -CT A/P when stable. -d/w [employer]. Giselle Moran MD Infectious Diseases Specialist [facility] ([facility]) M [phone]. Subjective Date of service: 09/07/17 Principal diagnosis: Septic shock, acute hypoxemic respiratory failure, [place] Interval history: Remains intubated. Afebrile. Back on levophed. FI02 85%. Was agitated overnight , on fentanyl and versed now. Microbiology: Blood cultures: 09/01 E coli x 4 bottles 09/04 NGTD Fungal blood culture: 09/06 pending Urine cultures: 09/02 Neg Respiratory cultures: TA 09/02 normal fiordaliza Crypto ag in serum negative Current Antimicrobials: Meropenem 09/02- Fluconazole 09/03- Vanco 09/02- Bactrim 09/05- Azithromycin 09/06- Solumedrol 09/05- Previous Antimicrobials: Zosyn 09/02 Azithro 09/02 Objective - Exam Narrative Exam: General appearance: Pt in NAD. Sedated on the vent. Eyes: anicteric sclerae, moist conjunctivae HENT: Atraumatic; oropharynx clear + ETT, + NGT Neck: Trachea midline; supple, no thyromegaly or lymphadenopathy Lungs: Coarse BS CV: S1,S2. Abdomen: +BS. Soft. Extremities: No peripheral edema or extremity lymphadenopathy Skin: No rash. Psych: sedated. Neuro: sedated. Lines: right IJ TLC / Quach clear urine. - Constitutional Vitals: Vital Signs Temp Pulse Resp BP Pulse Ox 98.0 F 87 30 H 90/58 88 09/07/17 04:00 09/07/17 08:00 09/07/17 08:00 09/07/17 08:00 09/07/17 08:00 Temperature -Last 24 Hours Temperature 98.0 F Temperature 97.7 F Temperature 98.0 F Temperature 98 F Temperature 98.1 F - Labs CBC & Chem 7: 09/07/17 08:20 09/07/17 04:13 Labs: Abnormal lab results 09/06/17 09/06/17 09/07/17 Range/Units 11:32 18:04 00:03 WBC (4.5-11.0) K/mm3 RBC (3.65-5.03) M/mm3 Hgb (11.8-15.2) gm/dl Hct (35.5-45.6) % MCH (28-32) pg RDW (13.2-15.2) % Plt Count (140-440) K/mm3 POC ABG pH (7.35-7.45) POC ABG pO2 (80-105) Sodium (137-145) mmol/L Potassium (3.6-5.0) mmol/L Chloride (98-107) mmol/L Carbon Dioxide (22-30) mmol/L BUN (9-20) mg/dL Glucose (75-100) mg/dL POC Glucose 169 H 130 H 123 H (70-105) AST (5-40) units/L ALT (7-56) units/L Albumin (3.9-5) g/dL 09/07/17 09/07/17 09/07/17 Range/Units 04:13 04:33 05:05 WBC (4.5-11.0) K/mm3 RBC (3.65-5.03) M/mm3 Hgb (11.8-15.2) gm/dl Hct (35.5-45.6) % MCH (28-32) pg RDW (13.2-15.2) % Plt Count (140-440) K/mm3 POC ABG pH 7.590 H (7.35-7.45) POC ABG pO2 179 H (80-105) Sodium 152 H (137-145) mmol/L Potassium 3.5 L (3.6-5.0) mmol/L Chloride 114.9 H (98-107) mmol/L Carbon Dioxide 34 H (22-30) mmol/L BUN 35 H (9-20) mg/dL Glucose 149 H (75-100) mg/dL POC Glucose 168 H (70-105) AST 150 H (5-40) units/L ALT 381 H (7-56) units/L Albumin 1.3 L (3.9-5) g/dL 09/07/17 Range/Units 08:20 WBC 11.9 H (4.5-11.0) K/mm3 RBC 3.11 L (3.65-5.03) M/mm3 Hgb 8.4 L (11.8-15.2) gm/dl Hct 26.0 L (35.5-45.6) % MCH 27 L (28-32) pg RDW 16.2 H (13.2-15.2) % Plt Count 109 L (140-440) K/mm3 POC ABG pH (7.35-7.45) POC ABG pO2 (80-105) Sodium (137-145) mmol/L Potassium (3.6-5.0) mmol/L Chloride (98-107) mmol/L Carbon Dioxide (22-30) mmol/L BUN (9-20) mg/dL Glucose (75-100) mg/dL POC Glucose (70-105) AST (5-40) units/L ALT (7-56) units/L Albumin (3.9-5) g/dL
[2017-09-07] MEDS: MERREM 1,000 MG in NACL 0.9% 100 ML IV SCH ×4 (09:38→23:42)
[2017-09-07] MEDS: LOVENOX SUB-Q SCH (09:39)
[2017-09-07] MEDS: PEPCID IV SCH (09:39)
--- NOTE | 2017-09-07 10:39 | Progress Note ---
Assessment and Plan Assessment and plan: 52-year-old male presents to the emergency department with complaint of shortness of breath and some midsternal right-sided chest discomfort with inspiration that started earlier this afternoon and radiates towards the back. The patient was just discharged from the [facility] a few days ago after spending some time therefore bilateral pneumonia. He is on Bactrim and just finished a course of antifungal medication for oral thrush. He denies any past medical history other than this pneumonia. He does not smoke or use illicit drugs. His physicians are through the [facility]. Patient was recently discharged from a 6 day hospital stay at the [facility]. He denies any leg swelling, nausea, vomiting or fever. * Septic shock due to underlying pneumonia * Pneumonia bacteria - Ramón neg rods, Gram Negative bacteremia, also concern for PJP * Acute hypoxemic respiratory failure intubated 09/01/17, on MV >96 hours * Hyperkalemia - corrected * Anemia of chronic disease * Hypernatremia * multiple liver masses suspicious for metastatic disease * Portal vein thrombosis? not clearly seen on US, will need dedicated study when clinically more stable * HIV- has not been compliant with HAART Plan - Continuue pressors and abx, id input appreciated Continue on mechanical ventilation Aggresive Bronchodilator Tx, continue diuresis Crankshaft Balancer Following Pul congestion with airway disease per CXR of 09/06/17- Monitor CBC and electrolytes continue free water replacement DVT GI prophylaxis with Lovenox and Pepcid Discussed with Critical care physician VTE prophylaxis?: Chemical, Mechanical The high probability of a clinically significant, sudden or life threatening deterioration of the [cv, renal, pulmonary] system(s) required my full and direct attention, intervention and personal management. The aggregate critical care time was [44] minutes. This time is in addition to time spent performing reported procedures but includes the following: [] Data Review and interpretation [] Patient assessment and monitoring of vital signs [] Documentation [] Medication orders and management History Interval history: remains intubated and sedated remains pressor dependent Hospitalist Physical - Physical exam Narrative exam: General appearance: Present: no acute distress, well-nourished, other (intubated ) - EENT Eyes: Present: PERRL ENT: clear oral mucosa - Neck Neck: Present: supple - Respiratory Respiratory effort: labored Respiratory: bilateral: rales - Cardiovascular Rhythm: regular Heart Sounds: Present: S1 & S2 - Extremities Extremities: no ischemia Peripheral Pulses: within normal limits - Abdominal General gastrointestinal: soft, non-distended - Integumentary Integumentary: Present: clear, warm, dry - Psychiatric Psychiatric: other (intubated/sedated) - Neurologic Neurologic: other (intubated/sedated) - Constitutional Vitals: Temp Pulse Resp BP Pulse Ox 98.0 F 85 22 99/59 93 09/07/17 04:00 09/07/17 09:04 09/07/17 09:04 09/07/17 08:54 09/07/17 08:54 General appearance: Present: no acute distress, well-nourished, other (intubated ) Results - Labs CBC & Chem 7: 09/09/17 04:00 09/09/17 04:00 Labs: Laboratory Last Values WBC 11.9 K/mm3 (4.5-11.0) H 09/07/17 08:20 RBC 3.11 M/mm3 (3.65-5.03) L 09/07/17 08:20 Hgb 8.4 gm/dl (11.8-15.2) L 09/07/17 08:20 Hct 26.0 % (35.5-45.6) L 09/07/17 08:20 MCV 84 fl (84-94) 09/07/17 08:20 MCH 27 pg (28-32) L 09/07/17 08:20 MCHC 32 % (32-34) 09/07/17 08:20 RDW 16.2 % (13.2-15.2) H 09/07/17 08:20 Plt Count 109 K/mm3 (140-440) L 09/07/17 08:20 [place] % (Auto) 12.6 % (0.0-7.3) H 09/02/17 07:36 Eos % (Auto) 0.3 % (0.0-4.3) 09/02/17 07:36 [place] # 0.4 K/mm3 (0.0-0.8) 09/02/17 07:36 Eos # 0.0 K/mm3 (0.0-0.4) 09/02/17 07:36 Baso # 0.0 K/mm3 (0.0-0.1) 09/02/17 07:36 Add Manual Diff Complete 09/06/17 06:15 Total Counted 100 09/06/17 06:15 Seg Neutrophils % 70.4 % (40.0-70.0) H 09/02/17 07:36 Seg Neuts % (Manual) 97.0 % (40.0-70.0) H 09/06/17 06:15 Band Neutrophils % 0 % 09/06/17 06:15 Lymphocytes % (Manual) 2.0 % (13.4-35.0) L 09/06/17 06:15 Reactive Lymphs % (Man) 0 % 09/06/17 06:15 Monocytes % (Manual) 1.0 % (0.0-7.3) 09/06/17 06:15 Eosinophils % (Manual) 0 % (0.0-4.3) 09/06/17 06:15 Basophils % (Manual) 0 % (0.0-1.8) 09/06/17 06:15 Metamyelocytes % 0 % 09/06/17 06:15 Myelocytes % 0 % 09/06/17 06:15 Promyelocytes % 0 % 09/06/17 06:15 Blast Cells % 0 % 09/06/17 06:15 Nucleated RBC % Not Reportable 09/06/17 06:15 Seg Neutrophils # 2.1 K/mm3 (1.8-7.7) 09/02/17 07:36 Seg Neutrophils # Man 8.1 K/mm3 (1.8-7.7) H 09/06/17 06:15 Band Neutrophils # 0.0 K/mm3 09/06/17 06:15 Lymphocytes # (Manual) 0.2 K/mm3 (1.2-5.4) L 09/06/17 06:15 Abs React Lymphs (Man) 0.0 K/mm3 09/06/17 06:15 Monocytes # (Manual) 0.1 K/mm3 (0.0-0.8) 09/06/17 06:15 Eosinophils # (Manual) 0.0 K/mm3 (0.0-0.4) 09/06/17 06:15 Basophils # (Manual) 0.0 K/mm3 (0.0-0.1) 09/06/17 06:15 Metamyelocytes # 0.0 K/mm3 09/06/17 06:15 Myelocytes # 0.0 K/mm3 09/06/17 06:15 Promyelocytes # 0.0 K/mm3 09/06/17 06:15 Blast Cells # 0.0 K/mm3 09/06/17 06:15 WBC Morphology Not Reportable 09/06/17 06:15 Hypersegmented Neuts Not Reportable 09/06/17 06:15 Hyposegmented Neuts Not Reportable 09/06/17 06:15 Hypogranular Neuts Not Reportable 09/06/17 06:15 Smudge Cells Not Reportable 09/06/17 06:15 Toxic Granulation Not Reportable 09/06/17 06:15 Toxic Vacuolation Not Reportable 09/06/17 06:15 Dohle Bodies Not Reportable 09/06/17 06:15 Pelger-Huet Anomaly Not Reportable 09/06/17 06:15 Efren Rods Not Reportable 09/06/17 06:15 Platelet Estimate Cons 09/06/17 06:15 Clumped Platelets Not Reportable 09/06/17 06:15 Plt Clumps, EDTA Not Reportable 09/06/17 06:15 Large Platelets Not Reportable 09/06/17 06:15 Giant Platelets Not Reportable 09/06/17 06:15 Platelet Satelliting Not Reportable 09/06/17 06:15 Plt Morphology Comment Not Reportable 09/06/17 06:15 RBC Morphology Not Reportable 09/06/17 06:15 Dimorphic RBCs Not Reportable 09/06/17 06:15 Polychromasia Not Reportable 09/06/17 06:15 Hypochromasia Not Reportable 09/06/17 06:15 Poikilocytosis Not Reportable 09/06/17 06:15 Anisocytosis 1+ 09/06/17 06:15 Microcytosis Not Reportable 09/06/17 06:15 Macrocytosis Not Reportable 09/06/17 06:15 Spherocytes Not Reportable 09/06/17 06:15 Pappenheimer Bodies Not Reportable 09/06/17 06:15 Sickle Cells Not Reportable 09/06/17 06:15 Target Cells Not Reportable 09/06/17 06:15 Tear Drop Cells Not Reportable 09/06/17 06:15 Ovalocytes Not Reportable 09/06/17 06:15 Helmet Cells Not Reportable 09/06/17 06:15 [place] Bodies Not Reportable 09/06/17 06:15 [place] Rings Not Reportable 09/06/17 06:15 [place] Cells Not Reportable 09/06/17 06:15 Bite Cells Not Reportable 09/06/17 06:15 Crenated Cell Not Reportable 09/06/17 06:15 Elliptocytes Not Reportable 09/06/17 06:15 Acanthocytes (Spur) Not Reportable 09/06/17 06:15 Rouleaux Not Reportable 09/06/17 06:15 Hemoglobin C Crystals Not Reportable 09/06/17 06:15 Schistocytes Not Reportable 09/06/17 06:15 Malaria parasites Not Reportable 09/06/17 06:15 [place] Bodies Not Reportable 09/06/17 06:15 Hem Pathologist Commnt No 09/06/17 06:15 PT 28.4 Sec. (12.2-14.9) H 09/04/17 04:00 INR 2.47 (0.87-1.13) H 09/04/17 04:00 APTT 35.4 Sec. (24.2-36.6) 09/02/17 07:36 Fibrinogen 611 mg/dl (211-480) H 09/04/17 17:23 D-Dimer 976.43 ng/mlDDU (0-234) H 09/01/17 23:27 POC ABG pH 7.590 (7.35-7.45) H 09/07/17 04:33 POC ABG pCO2 40.8 (35-45) 09/07/17 04:33 POC ABG pO2 179 (80-105) H 09/07/17 04:33 POC ABG HCO3 39.2 09/07/17 04:33 POC ABG Total CO2 40 09/07/17 04:33 POC ABG O2 Sat 100 09/07/17 04:33 POC ABG Base Excess 17 09/07/17 04:33 FiO2 100 % 09/07/17 04:33 Sodium 152 mmol/L (137-145) H 09/07/17 04:13 Potassium 3.5 mmol/L (3.6-5.0) L 09/07/17 04:13 Chloride 114.9 mmol/L (98-107) H 09/07/17 04:13 Carbon Dioxide 34 mmol/L (22-30) H 09/07/17 04:13 Anion Gap 7 mmol/L 09/07/17 04:13 BUN 35 mg/dL (9-20) H 09/07/17 04:13 Creatinine 0.9 mg/dL (0.8-1.5) 09/07/17 04:13 Estimated GFR > 60 ml/min 09/07/17 04:13 BUN/Creatinine Ratio 39 % 09/07/17 04:13 Glucose 149 mg/dL (75-100) H 09/07/17 04:13 POC Glucose 168 (70-105) H 09/07/17 05:05 Lactic Acid 2.90 mmol/L (0.7-2.0) H* 09/06/17 08:03 Calcium 8.6 mg/dL (8.4-10.2) 09/07/17 04:13 Phosphorus 6.40 mg/dL (2.5-4.5) H 09/03/17 05:15 Magnesium 1.80 mg/dL (1.7-2.3) 09/03/17 05:15 Total Bilirubin 0.30 mg/dL (0.1-1.2) 09/07/17 04:13 AST 150 units/L (5-40) H 09/07/17 04:13 ALT 381 units/L (7-56) H 09/07/17 04:13 Alkaline Phosphatase 103 units/L (35-129) 09/07/17 04:13 Lactate Dehydrogenase 571 units/L (91-180) H 09/05/17 10:55 Troponin T < 0.010 ng/mL (0.00-0.029) 09/01/17 23:27 C-Reactive Protein 22.30 mg/dL (0.00-1.30) H 09/02/17 19:34 NT-Pro-B Natriuret Pep 315.2 pg/mL (0-900) 09/01/17 23:27 Total Protein 7.0 g/dL (6.3-8.2) 09/07/17 04:13 Albumin 1.3 g/dL (3.9-5) L 09/07/17 04:13 Albumin/Globulin Ratio 0.2 % 09/07/17 04:13 Lipase 12 units/L (13-60) L 09/04/17 17:23 Vancomycin Trough 15.3 ug/mL (5.0-20.0) 09/04/17 17:23 Hepatitis A IgM Ab Non-reactive (NonReactive) 09/05/17 10:55 Hep Bs Antigen Reactive (Negative) 09/05/17 10:55 Hep B Core IgM Ab Non-reactive (NonReactive) 09/05/17 10:55 Hepatitis C Antibody Non-reactive (NonReactive) 09/05/17 10:55 HIV 1&2 Antibody Rapid Reactive (Non React) 09/02/17 19:34 HIV P24 Antigen Non react (Non React) 09/02/17 19:34 Urine Legionella Ag Not detected (Not Detected) 09/02/17 13:55 Miscellaneous Test Flexitest 1 09/02/17 13:55
[2017-09-07] MEDS: DIFLUCAN 200 MG/100 ML BAG IV SCH (11:04)
[2017-09-07 11:06] LABS: Basophils % (Manual) 0 % (0.0-1.8); Eosinophils % (Manual) 0 % (0.0-4.3); Total Cells Counted 100
[2017-09-07 11:07] LABS: Anisocytosis 1+; Platelet Estimate Cons
[2017-09-07] MEDS: LEVOPHED 8 MG in NACL 0.9% 250ML 242 ML IV SCH (11:33)
[2017-09-07] MEDS: ZITHROMAX 500 MG in NACL 0.9% 250ML 250 ML IV SCH (12:12)
--- NOTE | 2017-09-07 14:53 | Progress Note ---
Assessment and Plan Imp: 1. E.coli bacteremia of ? source 2. Bilateral pneumonia 3. Pleural effusions, more likely volume-related but could be due to #2 4. Acute respiratory failure, hypoxia 5. Severe sepsis with septic shock 6. Lactic acidosis 7. HIV/AIDS, poorly compliant with HAART for past > 1 year per [facility]; last CD4 per [facility] was 133 8. Dilated CMP 9. R/o DIC Rec: 1. ABX per ID; E.coli is sens to carbapenems; f/u pending cultures 2. Free water per NG, increase to 300mL [id number]; may need some D5W 3. Wean pressors to keep goal MAP > 65 4. Too hypoxic for bronch/BAL; keep PEEP at 10 and wean FiO2; trach aspirate is negative for PCP; on Bactrim/steroids empirically 5. Continue Lasix IV 6. Needs CT a/p when more stable re: liver lesions 7. GI and DVT PPx; increase TFs to goal 8. Cont. current minute ventilation 9. Prognosis remains guarded Plan of care reviewed w/ sister, she understands/agrees CCT 31 minutes Subjective Date of service: 09/07/17 Principal diagnosis: Septic shock, acute hypoxemic respiratory failure, [place] Interval history: No events. Sedated. On FiO2 of 90% and PEEP of 10. On Levophed 2 mcg. Off Vasopressin. Tolerated Lasix overnight. Active Medications Acetaminophen (Tylenol) 650 mg GA Q4H PRN PRN Reason: Pain, Mild (1-3) Last Admin: 09/02/17 22:03 Dose: 650 mg Acetaminophen (Tylenol) 650 mg FEEDTUBE Q6H PRN PRN Reason: Pain, Mild (1-3) Last Admin: 09/05/17 13:54 Dose: 650 mg Al Hydrox/Mg Hydrox/Simethicone (Alum-Mag Hydrox-Simeth [phone]/5ml) 30 ml PO Q4H PRN PRN Reason: Indigestion Albuterol (Proventil) 2.5 mg IH Q3HRT PRN PRN Reason: Shortness Of Breath Albuterol/Ipratropium (Duoneb *Not For Prn Use*) 1 ampul IH Q4HRT [facility] Last Admin: 09/07/17 12:20 Dose: 1 ampul Lipase/Protease/Amylase (Lj Ny 10,500 Unit) 1 each FEEDTUBE PRN PRN PRN Reason: For Clogged Feeding Tube Bisacodyl (Dulcolax) 10 mg GA QDAY PRN PRN Reason: constipation unrelieved by MOM Dextrose (D50w (25gm) Syringe) 50 ml IV PRN PRN PRN Reason: Hypoglycemia Last Admin: 09/02/17 23:42 Dose: 50 ml Enoxaparin Sodium (Lovenox) 40 mg SUB-Q QDAY STEPHANIE Last Admin: 09/07/17 09:39 Dose: 40 mg Famotidine (Pepcid) 20 mg IV BID STEPHANIE Last Admin: 09/07/17 09:39 Dose: 20 mg Furosemide (Lasix) 40 mg IV 0600,1800 [facility] Hydrophilic Ointment (Vaseline Lip Therapy) 1 applic TP Q2HR PRN PRN Reason: Dry Lips Last Admin: 09/02/17 10:15 Dose: 1 applic Fentanyl Citrate (Fentanyl Drip Premix) 2,000 mcg in 100 mls @ 2.903 mls/hr IV TITR STEPHANIE; 1 MCG/KG/HR PRN Reason: Protocol Last Titration: 09/07/17 12:52 Dose: 3 mcg/kg/hr, 8.709 mls/hr Vancomycin HCl 750 mg/ Sodium (Chloride) 257.5 mls @ 166.667 mls/hr IV Q12H STEPHANIE Last Admin: 09/07/17 06:00 Dose: 166.667 mls/hr Vasopressin 20 unit/ Sodium (Chloride) 101 mls @ 9.09 mls/hr IV TITR STEPHANIE; 0.03 UNITS/MIN PRN Reason: Protocol Last Titration: 09/06/17 11:30 Dose: 0 units/min, 0 mls/hr Meropenem 1,000 mg/ Sodium (Chloride) 100 mls @ 100 mls/hr IV Q8H STEPHANIE PRN Reason: Protocol Last Admin: 09/07/17 09:38 Dose: 100 mls/hr Fluconazole (Diflucan) 200 mg in 100 mls @ 100 mls/hr IV Q24HR STEPHANIE PRN Reason: Protocol Last Admin: 09/07/17 11:04 Dose: 100 mls/hr Norepinephrine 8 mg/ Sodium (Chloride) 250 mls @ 3.75 mls/hr IV TITR STEPHANIE; 2 MCG /MIN PRN Reason: Protocol Last Admin: 09/07/17 11:33 Dose: 2 mcg/min, 3.75 mls/hr Phenylephrine HCl 100 mg/ (Sodium Chloride) 100 mls @ 3 mls/hr IV TITR STEPHANIE; 50 MCG/MIN PRN Reason: Protocol Last Titration: 09/05/17 18:00 Dose: 0 mcg/min, 0 mls/hr Azithromycin 500 mg/ Sodium (Chloride) 250 mls @ 250 mls/hr IV Q24HR [facility] Last Admin: 09/07/17 12:12 Dose: 250 mls/hr Midazolam HCl 100 mg/ Sodium (Chloride) 100 mls @ 2 mls/hr IV TITR STEPHANIE; 2 MG/HR PRN Reason: Protocol Last Titration: 09/07/17 13:35 Dose: 2 mg/hr, 2 mls/hr Insulin Aspart (Novolog) 0 units SUB-Q Q6HR STEPHANIE PRN Reason: Protocol Last Admin: 09/07/17 11:34 Dose: Not Given Methylprednisolone Sodium Succinate (Solu-Medrol) 40 mg IV Q8H [facility] Last Admin: 09/07/17 12:15 Dose: 40 mg Multi-Ingred Cream/Lotion/Oil/Oint (Artificial Tears Ophth Oint) 1 applic OU Q4HR PRN PRN Reason: Dry Eye(s) Naloxone HCl (Narcan 0.4 Mg/1 Ml) 0.1 mg IV Q2MIN PRN PRN Reason: Res Rate </= 8 or 02 SAT < 92% Simple Syrup (Simple Syrup) 15 ml FEEDTUBE PRN PRN PRN Reason: Hypoglycemia Simple Syrup (Simple Syrup) 30 ml FEEDTUBE PRN PRN PRN Reason: Hypoglycemia Sodium Bicarbonate (Sodium Bicarbonate) 325 mg FEEDTUBE PRN PRN PRN Reason: For Clogged Feeding Tube Trimethoprim/Sulfamethoxazole (Bactrim Ds) 2 each PO Q8HR [facility] Last Admin: 09/07/17 13:34 Dose: 2 each Vancomycin HCl (Vancomycin Pharmacy To Dose) 1 each IV PKCONSULT STEPHANIE PRN Reason: Protocol Objective Vital Signs - 12hr 09/07/17 09/07/17 09/07/17 03:00 03:15 03:30 Temperature Pulse Rate 79 80 79 Pulse Rate [ Anterior Bilateral Throughout] Pulse Rate [ From Monitor] Respiratory 22 22 22 Rate Respiratory Rate [Anterior Bilateral Throughout] Blood Pressure 93/58 94/57 91/55 O2 Sat by Pulse 99 96 99 Oximetry 09/07/17 09/07/17 09/07/17 03:45 04:00 04:15 Temperature 98.0 F Pulse Rate 79 80 80 Pulse Rate [ Anterior Bilateral Throughout] Pulse Rate [ From Monitor] Respiratory 22 Rate Respiratory Rate [Anterior Bilateral Throughout] Blood Pressure 90/60 93/58 91/56 O2 Sat by Pulse 100 97 98 Oximetry 09/07/17 09/07/17 09/07/17 04:18 04:30 04:45 Temperature Pulse Rate 81 80 76 Pulse Rate [ 80 Anterior Bilateral Throughout] Pulse Rate [ From Monitor] Respiratory 28 H 22 Rate Respiratory 22 Rate [Anterior Bilateral Throughout] Blood Pressure 91/56 94/60 91/56 O2 Sat by Pulse 100 91 95 Oximetry 09/07/17 09/07/17 09/07/17 05:00 05:16 05:30 Temperature Pulse Rate 73 80 86 Pulse Rate [ Anterior Bilateral Throughout] Pulse Rate [ From Monitor] Respiratory 22 25 H 24 Rate Respiratory Rate [Anterior Bilateral Throughout] Blood Pressure 100/62 106/68 100/66 O2 Sat by Pulse 95 85 89 Oximetry 09/07/17 09/07/17 09/07/17 05:45 06:00 06:15 Temperature Pulse Rate 89 88 86 Pulse Rate [ Anterior Bilateral Throughout] Pulse Rate [ 90 From Monitor] Respiratory 32 H 35 H 29 H Rate Respiratory Rate [Anterior Bilateral Throughout] Blood Pressure 102/65 108/64 91/58 O2 Sat by Pulse 81 L 81 L 99 Oximetry 09/07/17 09/07/17 09/07/17 06:30 06:45 07:00 Temperature Pulse Rate 88 90 90 Pulse Rate [ Anterior Bilateral Throughout] Pulse Rate [ From Monitor] Respiratory 30 H 32 H 31 H Rate Respiratory Rate [Anterior Bilateral Throughout] Blood Pressure 91/60 91/57 98/58 O2 Sat by Pulse 92 86 85 Oximetry 09/07/17 09/07/17 09/07/17 07:15 07:30 07:45 Temperature Pulse Rate 86 86 85 Pulse Rate [ Anterior Bilateral Throughout] Pulse Rate [ From Monitor] Respiratory 31 H 31 H 30 H Rate Respiratory Rate [Anterior Bilateral Throughout] Blood Pressure 93/58 94/58 92/63 O2 Sat by Pulse 86 86 85 Oximetry 09/07/17 09/07/17 09/07/17 08:00 08:15 08:25 Temperature 97.5 F L Pulse Rate 87 92 H Pulse Rate [ Anterior Bilateral Throughout] Pulse Rate [ 86 From Monitor] Respiratory 30 H 27 H 19 Rate Respiratory Rate [Anterior Bilateral Throughout] Blood Pressure 90/58 100/57 O2 Sat by Pulse 88 88 88 Oximetry 09/07/17 09/07/17 09/07/17 08:30 08:45 08:54 Temperature Pulse Rate 91 H 86 88 Pulse Rate [ Anterior Bilateral Throughout] Pulse Rate [ From Monitor] Respiratory 29 H 31 H Rate Respiratory Rate [Anterior Bilateral Throughout] Blood Pressure 100/61 99/59 99/59 O2 Sat by Pulse 88 91 93 Oximetry 09/07/17 09/07/17 09/07/17 08:57 09:00 09:04 Temperature Pulse Rate 86 Pulse Rate [ 84 85 Anterior Bilateral Throughout] Pulse Rate [ From Monitor] Respiratory 22 Rate Respiratory 30 H 22 Rate [Anterior Bilateral Throughout] Blood Pressure 86/54 O2 Sat by Pulse 95 Oximetry 09/07/17 09/07/17 09/07/17 09:15 09:30 09:46 Temperature Pulse Rate 85 86 86 Pulse Rate [ Anterior Bilateral Throughout] Pulse Rate [ From Monitor] Respiratory 32 H 33 H 36 H Rate Respiratory Rate [Anterior Bilateral Throughout] Blood Pressure 103/65 100/62 119/66 O2 Sat by Pulse 89 89 85 Oximetry 09/07/17 09/07/17 09/07/17 10:00 10:15 10:30 Temperature Pulse Rate 91 H 98 H 96 H Pulse Rate [ Anterior Bilateral Throughout] Pulse Rate [ From Monitor] Respiratory 36 H 35 H 35 H Rate Respiratory Rate [Anterior Bilateral Throughout] Blood Pressure 111/71 101/64 102/69 O2 Sat by Pulse 86 88 86 Oximetry 09/07/17 09/07/17 09/07/17 10:40 10:45 11:00 Temperature Pulse Rate 100 H 99 H Pulse Rate [ Anterior Bilateral Throughout] Pulse Rate [ From Monitor] Respiratory 22 33 H 37 H Rate Respiratory Rate [Anterior Bilateral Throughout] Blood Pressure 94/55 94/55 O2 Sat by Pulse 89 92 88 Oximetry 09/07/17 09/07/17 09/07/17 11:15 11:21 11:30 Temperature Pulse Rate 102 H 98 H 110 H Pulse Rate [ Anterior Bilateral Throughout] Pulse Rate [ From Monitor] Respiratory 36 H 41 H Rate Respiratory Rate [Anterior Bilateral Throughout] Blood Pressure 112/63 112/63 123/80 O2 Sat by Pulse 89 94 87 Oximetry 09/07/17 09/07/17 09/07/17 11:45 12:00 12:15 Temperature 97.8 F Pulse Rate 109 H 105 H 107 H Pulse Rate [ Anterior Bilateral Throughout] Pulse Rate [ 109 H From Monitor] Respiratory 36 H 37 H 36 H Rate Respiratory Rate [Anterior Bilateral Throughout] Blood Pressure 107/55 118/71 109/67 O2 Sat by Pulse 89 86 89 Oximetry 09/07/17 09/07/17 09/07/17 12:21 12:28 12:30 Temperature Pulse Rate 92 H Pulse Rate [ 109 H 107 H Anterior Bilateral Throughout] Pulse Rate [ From Monitor] Respiratory 24 Rate Respiratory 37 H 22 Rate [Anterior Bilateral Throughout] Blood Pressure 114/74 O2 Sat by Pulse 99 Oximetry 09/07/17 09/07/17 12:45 13:00 Temperature Pulse Rate 109 H 105 H Pulse Rate [ Anterior Bilateral Throughout] Pulse Rate [ From Monitor] Respiratory 39 H 35 H Rate Respiratory Rate [Anterior Bilateral Throughout] Blood Pressure 114/81 111/69 O2 Sat by Pulse 90 89 Oximetry Constitutional: other (critically ill on vent, sedated) Eyes: non-icteric ENT: other (orally intubated and sedated) Neck: supple Effort: normal Ascultation: Bilateral: other (coarse BS bilaterally) Percussion: Bilateral: not dull Cardiovascular: regular rate and rhythm (sinus tach) Gastrointestinal: hypoactive bowel sounds, soft, non-tender, non-distended Extremities: no cyanosis, no edema, pink and warm Neurologic: normal mental status, non-focal exam, pupils equal and round, CN II- XII normal Psychiatric: other (unable to assess) CBC and BMP: 09/07/17 08:20 09/07/17 04:13 ABG, PT/INR, D-dimer: ABG POC ABG pH 7.590 (7.35-7.45) H 09/07/17 04:33 POC ABG pCO2 40.8 (35-45) 09/07/17 04:33 POC ABG pO2 179 (80-105) H 09/07/17 04:33 POC ABG HCO3 39.2 09/07/17 04:33 POC ABG Total CO2 40 09/07/17 04:33 POC ABG O2 Sat 100 09/07/17 04:33 PT/INR, D-dimer PT 28.4 Sec. (12.2-14.9) H 09/04/17 04:00 INR 2.47 (0.87-1.13) H 09/04/17 04:00 D-Dimer 976.43 ng/mlDDU (0-234) H 09/01/17 23:27 Abnormal lab findings: Abnormal Labs 09/01/17 09/01/17 09/01/17 19:00 19:00 23:27 WBC RBC Hgb 10.9 L Hct 32.3 L MCV 83 L MCH RDW 15.6 H Plt Count [place] % (Auto) Seg Neutrophils % Seg Neuts % (Manual) Lymphocytes % (Manual) Nucleated RBC % Seg Neutrophils # Man Lymphocytes # (Manual) PT INR Fibrinogen D-Dimer 976.43 H POC ABG pH POC ABG pCO2 POC ABG pO2 Sodium 133 L Potassium Chloride 96.4 L Carbon Dioxide BUN Glucose 113 H POC Glucose Lactic Acid Calcium Phosphorus Magnesium AST ALT Lactate Dehydrogenase C-Reactive Protein Total Protein Albumin Lipase 09/01/17 09/02/17 09/02/17 23:27 01:25 07:36 WBC 2.2 L RBC 3.41 L Hgb 9.6 L Hct 28.9 L MCV MCH RDW 16.0 H Plt Count [place] % (Auto) 12.6 H Seg Neutrophils % 70.4 H Seg Neuts % (Manual) Lymphocytes % (Manual) Nucleated RBC % Seg Neutrophils # Man 1.1 L Lymphocytes # (Manual) 0.6 L PT INR Fibrinogen D-Dimer POC ABG pH POC ABG pCO2 POC ABG pO2 Sodium Potassium Chloride Carbon Dioxide BUN Glucose POC Glucose Lactic Acid 3.30 H* 4.10 H* Calcium Phosphorus Magnesium AST ALT Lactate Dehydrogenase C-Reactive Protein Total Protein Albumin Lipase 09/02/17 09/02/17 09/02/17 07:36 07:36 07:36 WBC RBC Hgb Hct MCV MCH RDW Plt Count [place] % (Auto) Seg Neutrophils % Seg Neuts % (Manual) Lymphocytes % (Manual) Nucleated RBC % Seg Neutrophils # Man Lymphocytes # (Manual) PT 18.6 H INR 1.46 H Fibrinogen D-Dimer POC ABG pH POC ABG pCO2 POC ABG pO2 Sodium 136 L Potassium Chloride Carbon Dioxide BUN Glucose POC Glucose Lactic Acid 3.80 H* Calcium Phosphorus Magnesium 1.20 L AST ALT Lactate Dehydrogenase C-Reactive Protein Total Protein 9.1 H Albumin 2.0 L Lipase 09/02/17 09/02/17 09/02/17 08:49 09:40 11:33 WBC RBC Hgb Hct MCV MCH RDW Plt Count [place] % (Auto) Seg Neutrophils % Seg Neuts % (Manual) Lymphocytes % (Manual) Nucleated RBC % Seg Neutrophils # Man Lymphocytes # (Manual) PT INR Fibrinogen D-Dimer POC ABG pH 7.313 L POC ABG pCO2 POC ABG pO2 116 H Sodium Potassium Chloride Carbon Dioxide BUN Glucose POC Glucose Lactic Acid 3.60 H* 5.20 H* Calcium Phosphorus Magnesium AST ALT Lactate Dehydrogenase C-Reactive Protein Total Protein Albumin Lipase 09/02/17 09/02/17 09/02/17 19:34 23:37 23:40 WBC RBC Hgb Hct MCV MCH RDW Plt Count [place] % (Auto) Seg Neutrophils % Seg Neuts % (Manual) Lymphocytes % (Manual) Nucleated RBC % Seg Neutrophils # Man Lymphocytes # (Manual) PT INR Fibrinogen D-Dimer POC ABG pH POC ABG pCO2 POC ABG pO2 Sodium Potassium Chloride Carbon Dioxide BUN Glucose 59 L POC Glucose 47 L Lactic Acid Calcium Phosphorus Magnesium AST ALT Lactate Dehydrogenase C-Reactive Protein 22.30 H Total Protein Albumin Lipase 09/03/17 09/03/17 09/03/17 00:06 05:15 05:15 WBC RBC 3.59 L Hgb 10.1 L Hct 31.5 L MCV MCH RDW 18.0 H Plt Count [place] % (Auto) Seg Neutrophils % Seg Neuts % (Manual) Lymphocytes % (Manual) 1.0 L Nucleated RBC % 1.0 H Seg Neutrophils # Man Lymphocytes # (Manual) 0.1 L PT INR Fibrinogen D-Dimer POC ABG pH POC ABG pCO2 POC ABG pO2 Sodium Potassium Chloride Carbon Dioxide BUN Glucose POC Glucose 144 H Lactic Acid 9.10 H* Calcium Phosphorus Magnesium AST ALT Lactate Dehydrogenase C-Reactive Protein Total Protein Albumin Lipase 09/03/17 09/03/17 09/03/17 05:15 05:55 07:40 WBC RBC Hgb Hct MCV MCH RDW Plt Count [place] % (Auto) Seg Neutrophils % Seg Neuts % (Manual) Lymphocytes % (Manual) Nucleated RBC % Seg Neutrophils # Man Lymphocytes # (Manual) PT INR Fibrinogen D-Dimer POC ABG pH 6.999 L POC ABG pCO2 POC ABG pO2 64 L Sodium Potassium 5.6 H D Chloride 108.4 H Carbon Dioxide 11 L D BUN 30 H Glucose 115 H POC Glucose Lactic Acid 9.20 H* Calcium 7.3 L D Phosphorus 6.40 H Magnesium AST 88 H ALT Lactate Dehydrogenase C-Reactive Protein Total Protein Albumin 1.7 L Lipase 09/03/17 09/03/17 09/03/17 09:55 12:03 13:17 WBC RBC Hgb Hct MCV MCH RDW Plt Count [place] % (Auto) Seg Neutrophils % Seg Neuts % (Manual) Lymphocytes % (Manual) Nucleated RBC % Seg Neutrophils # Man Lymphocytes # (Manual) PT INR Fibrinogen D-Dimer POC ABG pH POC ABG pCO2 POC ABG pO2 Sodium Potassium Chloride Carbon Dioxide BUN Glucose POC Glucose 155 H Lactic Acid 9.50 H* 9.90 H* Calcium Phosphorus Magnesium AST ALT Lactate Dehydrogenase C-Reactive Protein Total Protein Albumin Lipase 09/03/17 09/03/17 09/03/17 15:55 17:13 18:02 WBC RBC Hgb Hct MCV MCH RDW Plt Count [place] % (Auto) Seg Neutrophils % Seg Neuts % (Manual) Lymphocytes % (Manual) Nucleated RBC % Seg Neutrophils # Man Lymphocytes # (Manual) PT INR Fibrinogen D-Dimer POC ABG pH POC ABG pCO2 POC ABG pO2 Sodium Potassium Chloride Carbon Dioxide BUN Glucose POC Glucose 171 H Lactic Acid 9.60 H* 9.00 H* Calcium Phosphorus Magnesium AST ALT Lactate Dehydrogenase C-Reactive Protein Total Protein Albumin Lipase 09/03/17 09/03/17 09/04/17 20:29 23:02 04:00 WBC RBC Hgb Hct MCV MCH RDW Plt Count [place] % (Auto) Seg Neutrophils % Seg Neuts % (Manual) Lymphocytes % (Manual) Nucleated RBC % Seg Neutrophils # Man Lymphocytes # (Manual) PT INR Fibrinogen D-Dimer POC ABG pH POC ABG pCO2 POC ABG pO2 Sodium Potassium Chloride Carbon Dioxide BUN Glucose POC Glucose 156 H Lactic Acid 9.00 H* 3.00 H* Calcium Phosphorus Magnesium AST ALT Lactate Dehydrogenase C-Reactive Protein Total Protein Albumin Lipase 09/04/17 09/04/17 09/04/17 04:00 04:00 09:00 WBC RBC 3.44 L Hgb 9.6 L Hct 29.0 L MCV MCH RDW 17.4 H Plt Count 124 L [place] % (Auto) Seg Neutrophils % Seg Neuts % (Manual) 91.0 H Lymphocytes % (Manual) 3.0 L Nucleated RBC % 2.0 H Seg Neutrophils # Man 9.9 H Lymphocytes # (Manual) 0.3 L PT 28.4 H INR 2.47 H Fibrinogen D-Dimer POC ABG pH POC ABG pCO2 POC ABG pO2 Sodium Potassium Chloride 110.1 H Carbon Dioxide BUN 29 H Glucose 192 H POC Glucose Lactic Acid Calcium 6.8 L Phosphorus Magnesium AST 361 H ALT 315 H Lactate Dehydrogenase C-Reactive Protein Total Protein Albumin 1.6 L Lipase 09/04/17 09/04/17 09/04/17 09:00 12:00 17:23 WBC RBC Hgb Hct MCV MCH RDW Plt Count [place] % (Auto) Seg Neutrophils % Seg Neuts % (Manual) Lymphocytes % (Manual) Nucleated RBC % Seg Neutrophils # Man Lymphocytes # (Manual) PT INR Fibrinogen 611 H D-Dimer POC ABG pH POC ABG pCO2 POC ABG pO2 Sodium Potassium Chloride Carbon Dioxide BUN Glucose POC Glucose Lactic Acid 2.10 H* 3.40 H* Calcium Phosphorus Magnesium AST ALT Lactate Dehydrogenase C-Reactive Protein Total Protein Albumin Lipase 09/04/17 09/04/17 09/04/17 17:23 17:47 22:30 WBC RBC Hgb Hct MCV MCH RDW Plt Count [place] % (Auto) Seg Neutrophils % Seg Neuts % (Manual) Lymphocytes % (Manual) Nucleated RBC % Seg Neutrophils # Man Lymphocytes # (Manual) PT INR Fibrinogen D-Dimer POC ABG pH POC ABG pCO2 POC ABG pO2 Sodium Potassium Chloride Carbon Dioxide BUN Glucose POC Glucose 107 H Lactic Acid 4.70 H* Calcium Phosphorus Magnesium AST ALT Lactate Dehydrogenase C-Reactive Protein Total Protein Albumin Lipase 12 L 09/04/17 09/05/17 09/05/17 23:08 05:31 06:00 WBC RBC Hgb Hct MCV MCH RDW Plt Count [place] % (Auto) Seg Neutrophils % Seg Neuts % (Manual) Lymphocytes % (Manual) Nucleated RBC % Seg Neutrophils # Man Lymphocytes # (Manual) PT INR Fibrinogen D-Dimer POC ABG pH 7.226 L POC ABG pCO2 65.4 H POC ABG pO2 61 L Sodium Potassium Chloride 112.7 H Carbon Dioxide BUN 31 H Glucose 132 H POC Glucose 109 H Lactic Acid Calcium 7.7 L Phosphorus Magnesium AST 834 H ALT 898 H Lactate Dehydrogenase C-Reactive Protein Total Protein Albumin 1.4 L Lipase 09/05/17 09/05/17 09/05/17 06:00 06:35 10:26 WBC RBC Hgb Hct MCV MCH RDW Plt Count [place] % (Auto) Seg Neutrophils % Seg Neuts % (Manual) Lymphocytes % (Manual) Nucleated RBC % Seg Neutrophils # Man Lymphocytes # (Manual) PT INR Fibrinogen D-Dimer POC ABG pH 7.311 L POC ABG pCO2 58.5 H POC ABG pO2 213 H Sodium Potassium Chloride Carbon Dioxide BUN Glucose POC Glucose 110 H Lactic Acid 4.50 H* Calcium Phosphorus Magnesium AST ALT Lactate Dehydrogenase C-Reactive Protein Total Protein Albumin Lipase 09/05/17 09/05/17 09/05/17 10:55 10:55 10:55 WBC 11.1 H RBC 3.38 L Hgb 9.3 L Hct 28.7 L MCV MCH RDW 16.7 H Plt Count 118 L [place] % (Auto) Seg Neutrophils % Seg Neuts % (Manual) 92.0 H Lymphocytes % (Manual) 4.0 L Nucleated RBC % 2.0 H Seg Neutrophils # Man 10.2 H Lymphocytes # (Manual) 0.4 L PT INR Fibrinogen D-Dimer POC ABG pH POC ABG pCO2 POC ABG pO2 Sodium Potassium Chloride Carbon Dioxide BUN Glucose POC Glucose Lactic Acid 3.60 H* Calcium Phosphorus Magnesium AST ALT Lactate Dehydrogenase 571 H C-Reactive Protein Total Protein Albumin Lipase 09/05/17 09/05/17 09/05/17 12:05 16:30 17:42 WBC RBC Hgb Hct MCV MCH RDW Plt Count [place] % (Auto) Seg Neutrophils % Seg Neuts % (Manual) Lymphocytes % (Manual) Nucleated RBC % Seg Neutrophils # Man Lymphocytes # (Manual) PT INR Fibrinogen D-Dimer POC ABG pH POC ABG pCO2 POC ABG pO2 Sodium Potassium Chloride Carbon Dioxide BUN Glucose POC Glucose 148 H 183 H Lactic Acid 3.50 H* Calcium Phosphorus Magnesium AST ALT Lactate Dehydrogenase C-Reactive Protein Total Protein Albumin Lipase 09/05/17 09/05/17 09/06/17 19:55 23:29 03:58 WBC RBC Hgb Hct MCV MCH RDW Plt Count [place] % (Auto) Seg Neutrophils % Seg Neuts % (Manual) Lymphocytes % (Manual) Nucleated RBC % Seg Neutrophils # Man Lymphocytes # (Manual) PT INR Fibrinogen D-Dimer POC ABG pH POC ABG pCO2 62.5 H POC ABG pO2 141 H Sodium Potassium Chloride Carbon Dioxide BUN Glucose POC Glucose 203 H Lactic Acid 3.60 H* Calcium Phosphorus Magnesium AST ALT Lactate Dehydrogenase C-Reactive Protein Total Protein Albumin Lipase 09/06/17 09/06/17 09/06/17 05:33 06:15 06:15 WBC RBC Hgb Hct MCV MCH RDW Plt Count [place] % (Auto) Seg Neutrophils % Seg Neuts % (Manual) Lymphocytes % (Manual) Nucleated RBC % Seg Neutrophils # Man Lymphocytes # (Manual) PT INR Fibrinogen D-Dimer POC ABG pH POC ABG pCO2 POC ABG pO2 Sodium 150 H Potassium Chloride 110.9 H Carbon Dioxide 31 H BUN 34 H Glucose 207 H POC Glucose 207 H Lactic Acid 2.90 H* Calcium 8.2 L Phosphorus Magnesium AST 346 H ALT 634 H Lactate Dehydrogenase C-Reactive Protein Total Protein Albumin 1.5 L Lipase 09/06/17 09/06/17 09/06/17 06:15 08:03 11:32 WBC RBC 3.26 L Hgb 9.0 L Hct 27.5 L MCV MCH RDW 16.7 H Plt Count 104 L [place] % (Auto) Seg Neutrophils % Seg Neuts % (Manual) 97.0 H Lymphocytes % (Manual) 2.0 L Nucleated RBC % Seg Neutrophils # Man 8.1 H Lymphocytes # (Manual) 0.2 L PT INR Fibrinogen D-Dimer POC ABG pH POC ABG pCO2 POC ABG pO2 Sodium Potassium Chloride Carbon Dioxide BUN Glucose POC Glucose 169 H Lactic Acid 2.90 H* Calcium Phosphorus Magnesium AST ALT Lactate Dehydrogenase C-Reactive Protein Total Protein Albumin Lipase 09/06/17 09/07/17 09/07/17 18:04 00:03 04:13 WBC RBC Hgb Hct MCV MCH RDW Plt Count [place] % (Auto) Seg Neutrophils % Seg Neuts % (Manual) Lymphocytes % (Manual) Nucleated RBC % Seg Neutrophils # Man Lymphocytes # (Manual) PT INR Fibrinogen D-Dimer POC ABG pH POC ABG pCO2 POC ABG pO2 Sodium 152 H Potassium 3.5 L Chloride 114.9 H Carbon Dioxide 34 H BUN 35 H Glucose 149 H POC Glucose 130 H 123 H Lactic Acid Calcium Phosphorus Magnesium AST 150 H ALT 381 H Lactate Dehydrogenase C-Reactive Protein Total Protein Albumin 1.3 L Lipase 09/07/17 09/07/17 09/07/17 04:33 05:05 08:20 WBC 11.9 H RBC 3.11 L Hgb 8.4 L Hct 26.0 L MCV MCH 27 L RDW 16.2 H Plt Count 109 L [place] % (Auto) Seg Neutrophils % Seg Neuts % (Manual) 93.0 H Lymphocytes % (Manual) 1.0 L Nucleated RBC % Seg Neutrophils # Man 11.1 H Lymphocytes # (Manual) 0.1 L PT INR Fibrinogen D-Dimer POC ABG pH 7.590 H POC ABG pCO2 POC ABG pO2 179 H Sodium Potassium Chloride Carbon Dioxide BUN Glucose POC Glucose 168 H Lactic Acid Calcium Phosphorus Magnesium AST ALT Lactate Dehydrogenase C-Reactive Protein Total Protein Albumin Lipase 09/07/17 11:34 WBC RBC Hgb Hct MCV MCH RDW Plt Count [place] % (Auto) Seg Neutrophils % Seg Neuts % (Manual) Lymphocytes % (Manual) Nucleated RBC % Seg Neutrophils # Man Lymphocytes # (Manual) PT INR Fibrinogen D-Dimer POC ABG pH POC ABG pCO2 POC ABG pO2 Sodium Potassium Chloride Carbon Dioxide BUN Glucose POC Glucose 156 H Lactic Acid Calcium Phosphorus Magnesium AST ALT Lactate Dehydrogenase C-Reactive Protein Total Protein Albumin Lipase Chest x-ray: report reviewed, image reviewed (mild clearing of infiltrates roz. LLL; moderate R effusion)
[2017-09-07] MEDS: LASIX IV SCH (18:08)
[2017-09-07 20:36] LABS: Hematocrit 28.3 % (35.5-45.6); Hemoglobin 9.2 gm/dl (11.8-15.2); Mean Corpuscular HGB Conc 33 % (32-34); Mean Corpuscular Hemoglobin 27 pg (28-32); Mean Corpuscular Volume 84 fl (84-94); Platelet Count 120 K/mm3 (140-440); Red Blood Count 3.36 M/mm3 (3.65-5.03); Red Cell Distribution Width 16.1 % (13.2-15.2)
[2017-09-07 20:46] LABS: BUN/Creatinine Ratio 46; Blood Urea Nitrogen 37 mg/dL (9-20); Calcium 9.1 mg/dL (8.4-10.2); Hemolysis Index 8
[2017-09-07 21:14] LABS: Basophils % (Manual) 0 % (0.0-1.8); Eosinophils % (Manual) 0 % (0.0-4.3); Total Cells Counted 100
[2017-09-07 21:15] LABS: Anisocytosis 1+; Platelet Estimate Appears Decreased
[2017-09-08] MEDS: DUONEB *Not for PRN Use IH SCH ×6 (00:10→20:10)
[2017-09-08] MEDS: LASIX IV SCH ×2 (05:03→17:27)
[2017-09-08] MEDS: VANCOMYCIN 750 MG in NACL 0.9% 250ML 250 ML IV SCH (06:15)
[2017-09-08] MEDS: MIDAZOLAM 100 MG in NACL 0.9% 80 ML IV SCH (06:15)
[2017-09-08] MEDS: BACTRIM DS PO SCH ×3 (06:16→21:07)
[2017-09-08] MEDS: fentaNYL DRIP Premix 2,000 MCG/100 ML BAG IV SCH ×2 (06:16→21:47)
[2017-09-08 06:36] LABS: Hematocrit 27.4 % (35.5-45.6); Hemoglobin 9.1 gm/dl (11.8-15.2); Mean Corpuscular HGB Conc 33 % (32-34); Mean Corpuscular Hemoglobin 28 pg (28-32); Mean Corpuscular Volume 83 fl (84-94); Platelet Count 111 K/mm3 (140-440); Red Blood Count 3.29 M/mm3 (3.65-5.03); Red Cell Distribution Width 15.8 % (13.2-15.2)
[2017-09-08 06:38] LABS: BUN/Creatinine Ratio 49; Blood Urea Nitrogen 39 mg/dL (9-20); Calcium 8.9 mg/dL (8.4-10.2); Hemolysis Index 1
[2017-09-08] MEDS: NOVOLOG SUB-Q SCH ×4 (06:46→17:31)
--- NOTE | 2017-09-08 07:28 | XRay Report ---
FINAL REPORT PROCEDURE: XR CHEST 1V AP TECHNIQUE: Chest radiograph anteroposterior view. CPT 52914 HISTORY: follow up respiratory failure COMPARISON: 09/07/2017 FINDINGS: Heart: Normal. Mediastinum/Vessels: Normal. Lungs/Pleural space: There are bilateral perihilar infiltrates and right lower lobe infiltrates. There is a moderate right pleural effusion. There is no pneumothorax.. Bony thorax: No acute osseous abnormality. Life support devices: The endotracheal tube is in the mid trachea. The NG tube is in the stomach. There is a right-sided central venous catheter. The tip is in the superior vena cava.. IMPRESSION: The heart size is normal.. There are bilateral perihilar infiltrates and right lower lobe infiltrates. There is a moderate right pleural effusion. There is no pneumothorax.. The endotracheal tube is in the mid trachea. The NG tube is in the stomach. There is a right-sided central venous catheter. The tip is in the superior vena cava..
[2017-09-08] MEDS: MERREM 1,000 MG in NACL 0.9% 100 ML IV SCH ×2 (07:53→15:47)
[2017-09-08 08:15] LABS: Anisocytosis 1+; Basophils % (Manual) 0 % (0.0-1.8); Eosinophils % (Manual) 0 % (0.0-4.3); Platelet Estimate Cons; Total Cells Counted 100
[2017-09-08] MEDS: DIFLUCAN 200 MG/100 ML BAG IV SCH (09:26)
[2017-09-08] MEDS: PEPCID IV SCH ×3 (09:26→21:07)
[2017-09-08] MEDS: LOVENOX SUB-Q SCH (09:26)
[2017-09-08] MEDS: ZITHROMAX 500 MG in NACL 0.9% 250ML 250 ML IV SCH (10:40)
--- NOTE | 2017-09-08 11:53 | Progress Note ---
Assessment and Plan Assessment and plan: 52-year-old male presents to the emergency department with complaint of shortness of breath and some midsternal right-sided chest discomfort with inspiration that started earlier this afternoon and radiates towards the back. The patient was just discharged from the [facility] a few days ago after spending some time therefore bilateral pneumonia. He is on Bactrim and just finished a course of antifungal medication for oral thrush. He denies any past medical history other than this pneumonia. He does not smoke or use illicit drugs. His physicians are through the [facility]. Patient was recently discharged from a 6 day hospital stay at the [facility]. He denies any leg swelling, nausea, vomiting or fever. * Septic shock due to underlying pneumonia * Pneumonia bacteria - Ramón neg rods, Gram Negative bacteremia, also concern for PJP * Acute hypoxemic respiratory failure intubated 09/01/17, on MV >96 hours * Hyperkalemia - corrected * Anemia of chronic disease * Hypernatremia * multiple liver masses suspicious for metastatic disease * Portal vein thrombosis? not clearly seen on US, will need dedicated study when clinically more stable * HIV- has not been compliant with HAART Plan - Continuue pressors and abx, id input appreciated Continue on mechanical ventilation Aggresive Bronchodilator Tx, continue diuresis [employer] Following Pul congestion with airway disease per CXR of 09/06/17- Monitor CBC and electrolytes continue free water replacement DVT GI prophylaxis with Lovenox and Pepcid Discussed with Critical care physician VTE prophylaxis?: Chemical, Mechanical The high probability of a clinically significant, sudden or life threatening deterioration of the [cv, renal, pulmonary] system(s) required my full and direct attention, intervention and personal management. The aggregate critical care time was [44] minutes. This time is in addition to time spent performing reported procedures but includes the following: [] Data Review and interpretation [] Patient assessment and monitoring of vital signs [] Documentation [] Medication orders and management History Interval history: remains intubated and sedated remains pressor dependent Hospitalist Physical - Physical exam Narrative exam: General appearance: Present: no acute distress, well-nourished, other (intubated ) - EENT Eyes: Present: PERRL ENT: clear oral mucosa - Neck Neck: Present: supple - Respiratory Respiratory effort: labored Respiratory: bilateral: rales - Cardiovascular Rhythm: regular Heart Sounds: Present: S1 & S2 - Extremities Extremities: no ischemia Peripheral Pulses: within normal limits - Abdominal General gastrointestinal: soft, non-distended - Integumentary Integumentary: Present: clear, warm, dry - Psychiatric Psychiatric: other (intubated/sedated) - Neurologic Neurologic: other (intubated/sedated) - Constitutional Vitals: Temp Pulse Resp BP Pulse Ox 97.7 F 84 22 85/51 100 09/08/17 08:00 09/08/17 11:45 09/08/17 11:45 09/08/17 11:45 09/08/17 11:45 General appearance: Present: no acute distress, well-nourished, other (intubated ) Results - Labs CBC & Chem 7: 09/09/17 04:00 09/09/17 04:00 Labs: Laboratory Last Values WBC 13.6 K/mm3 (4.5-11.0) H 09/08/17 05:30 RBC 3.29 M/mm3 (3.65-5.03) L 09/08/17 05:30 Hgb 9.1 gm/dl (11.8-15.2) L 09/08/17 05:30 Hct 27.4 % (35.5-45.6) L 09/08/17 05:30 MCV 83 fl (84-94) L 09/08/17 05:30 MCH 28 pg (28-32) 09/08/17 05:30 MCHC 33 % (32-34) 09/08/17 05:30 RDW 15.8 % (13.2-15.2) H 09/08/17 05:30 Plt Count 111 K/mm3 (140-440) L 09/08/17 05:30 [place] % (Auto) 12.6 % (0.0-7.3) H 09/02/17 07:36 Eos % (Auto) 0.3 % (0.0-4.3) 09/02/17 07:36 [place] # 0.4 K/mm3 (0.0-0.8) 09/02/17 07:36 Eos # 0.0 K/mm3 (0.0-0.4) 09/02/17 07:36 Baso # 0.0 K/mm3 (0.0-0.1) 09/02/17 07:36 Add Manual Diff Complete 09/08/17 05:30 Total Counted 100 09/08/17 05:30 Seg Neutrophils % Cash Posting Specialist 09/08/17 05:30 Seg Neuts % (Manual) 94.0 % (40.0-70.0) H 09/08/17 05:30 Band Neutrophils % 0 % 09/08/17 05:30 Lymphocytes % (Manual) 4.0 % (13.4-35.0) L 09/08/17 05:30 Reactive Lymphs % (Man) 0 % 09/08/17 05:30 Monocytes % (Manual) 2.0 % (0.0-7.3) 09/08/17 05:30 Eosinophils % (Manual) 0 % (0.0-4.3) 09/08/17 05:30 Basophils % (Manual) 0 % (0.0-1.8) 09/08/17 05:30 Metamyelocytes % 0 % 09/08/17 05:30 Myelocytes % 0 % 09/08/17 05:30 Promyelocytes % 0 % 09/08/17 05:30 Blast Cells % 0 % 09/08/17 05:30 Nucleated RBC % 1.0 % (0.0-0.9) H 09/08/17 05:30 Seg Neutrophils # 2.1 K/mm3 (1.8-7.7) 09/02/17 07:36 Seg Neutrophils # Man 12.8 K/mm3 (1.8-7.7) H 09/08/17 05:30 Band Neutrophils # 0.0 K/mm3 09/08/17 05:30 Lymphocytes # (Manual) 0.5 K/mm3 (1.2-5.4) L 09/08/17 05:30 Abs React Lymphs (Man) 0.0 K/mm3 09/08/17 05:30 Monocytes # (Manual) 0.3 K/mm3 (0.0-0.8) 09/08/17 05:30 Eosinophils # (Manual) 0.0 K/mm3 (0.0-0.4) 09/08/17 05:30 Basophils # (Manual) 0.0 K/mm3 (0.0-0.1) 09/08/17 05:30 Metamyelocytes # 0.0 K/mm3 09/08/17 05:30 Myelocytes # 0.0 K/mm3 09/08/17 05:30 Promyelocytes # 0.0 K/mm3 09/08/17 05:30 Blast Cells # 0.0 K/mm3 09/08/17 05:30 WBC Morphology Not Reportable 09/08/17 05:30 Hypersegmented Neuts Not Reportable 09/08/17 05:30 Hyposegmented Neuts Not Reportable 09/08/17 05:30 Hypogranular Neuts Not Reportable 09/08/17 05:30 Smudge Cells Not Reportable 09/08/17 05:30 Toxic Granulation Not Reportable 09/08/17 05:30 Toxic Vacuolation Not Reportable 09/08/17 05:30 Dohle Bodies Not Reportable 09/08/17 05:30 Pelger-Huet Anomaly Not Reportable 09/08/17 05:30 Efren Rods Not Reportable 09/08/17 05:30 Platelet Estimate Cons 09/08/17 05:30 Clumped Platelets Not Reportable 09/08/17 05:30 Plt Clumps, EDTA Not Reportable 09/08/17 05:30 Large Platelets Not Reportable 09/08/17 05:30 Giant Platelets Not Reportable 09/08/17 05:30 Platelet Satelliting Not Reportable 09/08/17 05:30 Plt Morphology Comment Not Reportable 09/08/17 05:30 RBC Morphology Not Reportable 09/08/17 05:30 Dimorphic RBCs Not Reportable 09/08/17 05:30 Polychromasia Not Reportable 09/08/17 05:30 Hypochromasia Not Reportable 09/08/17 05:30 Poikilocytosis Not Reportable 09/08/17 05:30 Anisocytosis 1+ 09/08/17 05:30 Microcytosis Not Reportable 09/08/17 05:30 Macrocytosis Not Reportable 09/08/17 05:30 Spherocytes Not Reportable 09/08/17 05:30 Pappenheimer Bodies Not Reportable 09/08/17 05:30 Sickle Cells Not Reportable 09/08/17 05:30 Target Cells Not Reportable 09/08/17 05:30 Tear Drop Cells Not Reportable 09/08/17 05:30 Ovalocytes Not Reportable 09/08/17 05:30 Helmet Cells Not Reportable 09/08/17 05:30 [place] Bodies Not Reportable 09/08/17 05:30 [place] Rings Not Reportable 09/08/17 05:30 Mayo Cells Not Reportable 09/08/17 05:30 Bite Cells Not Reportable 09/08/17 05:30 Crenated Cell Not Reportable 09/08/17 05:30 Elliptocytes Not Reportable 09/08/17 05:30 Acanthocytes (Spur) Not Reportable 09/08/17 05:30 Rouleaux Not Reportable 09/08/17 05:30 Hemoglobin C Crystals Not Reportable 09/08/17 05:30 Schistocytes Not Reportable 09/08/17 05:30 Malaria parasites Not Reportable 09/08/17 05:30 Scott Bodies Not Reportable 09/08/17 05:30 Hem Pathologist Commnt No 09/08/17 05:30 PT 28.4 Sec. (12.2-14.9) H 09/04/17 04:00 INR 2.47 (0.87-1.13) H 09/04/17 04:00 APTT 35.4 Sec. (24.2-36.6) 09/02/17 07:36 Fibrinogen 611 mg/dl (211-480) H 09/04/17 17:23 D-Dimer 976.43 ng/mlDDU (0-234) H 09/01/17 23:27 POC ABG pH 7.460 (7.35-7.45) H 09/08/17 05:15 POC ABG pCO2 54.7 (35-45) H 09/08/17 05:15 POC ABG pO2 209 (80-105) H 09/08/17 05:15 POC ABG HCO3 38.9 09/08/17 05:15 POC ABG Total CO2 41 09/08/17 05:15 POC ABG O2 Sat 100 09/08/17 05:15 POC ABG Base Excess 15 09/08/17 05:15 FiO2 80 % 09/08/17 05:15 Sodium 154 mmol/L (137-145) H 09/08/17 05:30 Potassium 3.6 mmol/L (3.6-5.0) 09/08/17 05:30 Chloride 114.3 mmol/L (98-107) H 09/08/17 05:30 Carbon Dioxide 36 mmol/L (22-30) H 09/08/17 05:30 Anion Gap 7 mmol/L 09/08/17 05:30 BUN 39 mg/dL (9-20) H 09/08/17 05:30 Creatinine 0.8 mg/dL (0.8-1.5) 09/08/17 05:30 Estimated GFR > 60 ml/min 09/08/17 05:30 BUN/Creatinine Ratio 49 % 09/08/17 05:30 Glucose 163 mg/dL (75-100) H 09/08/17 05:30 POC Glucose 102 (70-105) 09/07/17 23:46 Lactic Acid 2.90 mmol/L (0.7-2.0) H* 09/06/17 08:03 Calcium 8.9 mg/dL (8.4-10.2) 09/08/17 05:30 Phosphorus 6.40 mg/dL (2.5-4.5) H 09/03/17 05:15 Magnesium 1.80 mg/dL (1.7-2.3) 09/03/17 05:15 Total Bilirubin 0.30 mg/dL (0.1-1.2) 09/07/17 04:13 AST 150 units/L (5-40) H 09/07/17 04:13 ALT 381 units/L (7-56) H 09/07/17 04:13 Alkaline Phosphatase 103 units/L (35-129) 09/07/17 04:13 Lactate Dehydrogenase 571 units/L (91-180) H 09/05/17 10:55 Troponin T < 0.010 ng/mL (0.00-0.029) 09/01/17 23:27 C-Reactive Protein 8.70 mg/dL (0.00-1.30) H 09/08/17 05:30 NT-Pro-B Natriuret Pep 315.2 pg/mL (0-900) 09/01/17 23:27 Total Protein 7.0 g/dL (6.3-8.2) 09/07/17 04:13 Albumin 1.3 g/dL (3.9-5) L 09/07/17 04:13 Albumin/Globulin Ratio 0.2 % 09/07/17 04:13 Lipase 12 units/L (13-60) L 09/04/17 17:23 Vancomycin Trough 15.3 ug/mL (5.0-20.0) 09/04/17 17:23 RPR Nonreactive (Nonreactive) 09/07/17 04:13 Hepatitis A IgM Ab Non-reactive (NonReactive) 09/05/17 10:55 Hep Bs Antigen Reactive (Negative) 09/05/17 10:55 Hep B Core IgM Ab Non-reactive (NonReactive) 09/05/17 10:55 Hepatitis C Antibody Non-reactive (NonReactive) 09/05/17 10:55 HIV 1&2 Antibody Rapid Reactive (Non React) 09/02/17 19:34 HIV P24 Antigen Non react (Non React) 09/02/17 19:34 Urine Legionella Ag Not detected (Not Detected) 09/02/17 13:55 Miscellaneous Test Flexitest 1 09/02/17 13:55
--- NOTE | 2017-09-08 13:44 | Progress Note ---
Assessment and Plan Assessment: 1) Severe Sepsis with septic shock: Present on admission, manifested by fever, tachycardia, hypotension, increased lactate. Etiology most likely E coli septicemia and pneumonia. -CRP 22.30. -Lactic acid better as of 09/06. -On levophed. -Afebrile. -Leukocytosis. On solumedrol. 2) E. coli septicemia: unknown source ? Pneumonia ? UTI (UCx negative) ? GI -Blood cultures 09/01 positive 4 of 4 bottles -Repeat Blood cultures 09/04 NGTD. -TTE 09/02 no vegetations. 3) Bilateral pneumonia: recently treated at [facility]. ? Pneumocystis pneumonia (LDH 571). -Tracheal asp with normal fiordaliza. - CT chest 09/02 with extensive bilateral pulmonary opacities due to edema vs PNA. Also component of atelectasis. Bilateral pleural effusions. - Legionella and Strep pneumo ag in urine negative - On bactrim and steroids since 09/05. 4) Acute respiratory failure. Intubated. From pneumonia. 5) HIV/AIDS, poorly compliant with HAART for past > 1 year per [facility]; last CD4 per [facility] was 133 6) Abnormal CT A/P with numerous liver lesions suspicious for metastatic liver disease, moderate ascites, possible partial vein thrombosis. 7) Encephalopathy. 8) Transaminitis. Could be due to shock liver. Improved. ?hep B. -Hep B Surface ag positive -Hep C negative 9) Acute Thrombocytopenia. Improved. Plan: -f/u blood cultures. -continue meropenem (D7), fluconazole (D6), bactrim (D4) and azithromycin (D3). -Stop vancomycin. -Will f/u confirmatory HIV test, HIV-VL, genotype, CD4 count, HLA [id number], quantiferon, RPR, Hep B Surface antibody, Core antibody IgG, e antigen/antibody and hep B viral load. -Will f/u fungal blood cultures, AFB blood cultures. -Will f/u Pneumocystis smear. -As per pulmonary to hypoxic for bronch/BAL. -Consider hem/onc consult for possible underlying malignancy. -CT A/P when stable. -d/w NEWSPAPER MANAGING EDITOR. Giselle Moran MD Infectious Diseases Specialist [facility] ([facility] M [phone]. Subjective Date of service: 09/08/17 Principal diagnosis: Septic shock, acute hypoxemic respiratory failure, [place] Interval history: Remains intubated. Afebrile. Still on levophed. Microbiology: Blood cultures: 09/01 E coli x 4 bottles 09/04 NGTD Fungal blood culture: 09/06 pending Urine cultures: 09/02 Neg Respiratory cultures: TA 09/02 normal fiordaliza Crypto ag in serum negative Current Antimicrobials: Meropenem 09/02- Fluconazole 09/03- Vanco 09/02- Bactrim 09/05- Azithromycin 09/06- Solumedrol 09/05- Previous Antimicrobials: Zosyn 09/02 Azithro 09/02 Objective - Exam Narrative Exam: General appearance: Pt in NAD. Sedated on the vent. Eyes: anicteric sclerae, moist conjunctivae HENT: Atraumatic; oropharynx clear + ETT, + NGT Neck: Trachea midline; supple, no thyromegaly or lymphadenopathy Lungs: Coarse BS CV: S1,S2. Abdomen: +BS. Soft. Extremities: No peripheral edema or extremity lymphadenopathy Skin: No rash. Psych: sedated. Neuro: sedated. Lines: right IJ TLC / Quach clear urine. - Constitutional Vitals: Vital Signs Temp Pulse Resp BP Pulse Ox 97.6 F 67 22 101/64 99 09/08/17 12:00 09/08/17 12:45 09/08/17 12:45 09/08/17 12:45 09/08/17 12:45 Temperature -Last 24 Hours Temperature 97.6 F Temperature 97.7 F Temperature 99.2 F Temperature 98.5 F Temperature 98.8 F Temperature 98.3 F - Labs CBC & Chem 7: 09/08/17 05:30 09/08/17 05:30 Labs: Abnormal lab results 09/07/17 09/07/17 09/07/17 Range/Units 18:13 20:14 20:14 WBC 14.6 H (4.5-11.0) K/mm3 RBC 3.36 L (3.65-5.03) M/mm3 Hgb 9.2 L (11.8-15.2) gm/dl Hct 28.3 L (35.5-45.6) % MCV (84-94) fl MCH 27 L (28-32) pg RDW 16.1 H (13.2-15.2) % Plt Count 120 L (140-440) K/mm3 Seg Neuts % (Manual) 93.0 H (40.0-70.0) % Lymphocytes % (Manual) 2.0 L (13.4-35.0) % Nucleated RBC % (0.0-0.9) % Seg Neutrophils # Man 13.6 H (1.8-7.7) K/mm3 Lymphocytes # (Manual) 0.3 L (1.2-5.4) K/mm3 POC ABG pH (7.35-7.45) POC ABG pCO2 (35-45) POC ABG pO2 (80-105) Sodium 154 H (137-145) mmol/L Potassium 3.4 L (3.6-5.0) mmol/L Chloride 114.7 H (98-107) mmol/L Carbon Dioxide 34 H (22-30) mmol/L BUN 37 H (9-20) mg/dL Glucose 131 H (75-100) mg/dL POC Glucose 136 H (70-105) C-Reactive Protein (0.00-1.30) mg/dL 09/08/17 09/08/17 09/08/17 Range/Units 05:15 05:30 05:30 WBC 13.6 H (4.5-11.0) K/mm3 RBC 3.29 L (3.65-5.03) M/mm3 Hgb 9.1 L (11.8-15.2) gm/dl Hct 27.4 L (35.5-45.6) % MCV 83 L (84-94) fl MCH (28-32) pg RDW 15.8 H (13.2-15.2) % Plt Count 111 L (140-440) K/mm3 Seg Neuts % (Manual) 94.0 H (40.0-70.0) % Lymphocytes % (Manual) 4.0 L (13.4-35.0) % Nucleated RBC % 1.0 H (0.0-0.9) % Seg Neutrophils # Man 12.8 H (1.8-7.7) K/mm3 Lymphocytes # (Manual) 0.5 L (1.2-5.4) K/mm3 POC ABG pH 7.460 H (7.35-7.45) POC ABG pCO2 54.7 H (35-45) POC ABG pO2 209 H (80-105) Sodium (137-145) mmol/L Potassium (3.6-5.0) mmol/L Chloride (98-107) mmol/L Carbon Dioxide (22-30) mmol/L BUN (9-20) mg/dL Glucose (75-100) mg/dL POC Glucose (70-105) C-Reactive Protein 8.70 H (0.00-1.30) mg/dL 09/08/17 Range/Units 05:30 WBC (4.5-11.0) K/mm3 RBC (3.65-5.03) M/mm3 Hgb (11.8-15.2) gm/dl Hct (35.5-45.6) % MCV (84-94) fl MCH (28-32) pg RDW (13.2-15.2) % Plt Count (140-440) K/mm3 Seg Neuts % (Manual) (40.0-70.0) % Lymphocytes % (Manual) (13.4-35.0) % Nucleated RBC % (0.0-0.9) % Seg Neutrophils # Man (1.8-7.7) K/mm3 Lymphocytes # (Manual) (1.2-5.4) K/mm3 POC ABG pH (7.35-7.45) POC ABG pCO2 (35-45) POC ABG pO2 (80-105) Sodium 154 H (137-145) mmol/L Potassium (3.6-5.0) mmol/L Chloride 114.3 H (98-107) mmol/L Carbon Dioxide 36 H (22-30) mmol/L BUN 39 H (9-20) mg/dL Glucose 163 H (75-100) mg/dL POC Glucose (70-105) C-Reactive Protein (0.00-1.30) mg/dL
--- NOTE | 2017-09-08 16:15 | Progress Note ---
Assessment and Plan Imp: 1. E.coli bacteremia of ? source 2. Bilateral pneumonia 3. Pleural effusions, more likely volume-related but could be due to #2 4. Acute respiratory failure, hypoxia 5. Severe sepsis with septic shock 6. Lactic acidosis 7. HIV/AIDS, poorly compliant with HAART for past > 1 year per [facility]; last CD4 per [facility] was 133 8. Dilated CMP 9. Hypernatremia Rec: 1. ABX per ID; E.coli is sens to carbapenems; f/u pending cultures 2. Free water per NG 300mL [id number]; add gentle D5W 3. Wean pressors to keep goal MAP > 65 4. Trach aspirate is negative for PCP; on Bactrim/steroids empirically 5. Continue Lasix IV for now 6. Needs CT a/p when more stable re: liver lesions 7. GI and DVT PPx; TFs 8. Cont. current minute ventilation; try to wean PEEP now to keep sats 88% or above; start PSV once down to +5 of PEEP and 50% or less FiO2 9. Prognosis remains guarded, although he has improved Plan of care reviewed w/ sister, she understands/agrees CCT 31 minutes Subjective Date of service: 09/08/17 Principal diagnosis: Septic shock, acute hypoxemic respiratory failure, [place] Interval history: No events. Sedated. On FiO2 of 45% and PEEP of 10. On Levophed 4 mcg. Off Vasopressin. Tolerating Lasix. Active Medications Acetaminophen (Tylenol) 650 mg NV Q4H PRN PRN Reason: Pain, Mild (1-3) Last Admin: 09/02/17 22:03 Dose: 650 mg Acetaminophen (Tylenol) 650 mg FEEDTUBE Q6H PRN PRN Reason: Pain, Mild (1-3) Last Admin: 09/05/17 13:54 Dose: 650 mg Al Hydrox/Mg Hydrox/Simethicone (Alum-Mag Hydrox-Simeth [id number]/5ml) 30 ml PO Q4H PRN PRN Reason: Indigestion Albuterol (Proventil) 2.5 mg IH Q3HRT PRN PRN Reason: Shortness Of Breath Albuterol/Ipratropium (Duoneb *Not For Prn Use*) 1 ampul IH Q4HRT [facility] Last Admin: 09/08/17 13:50 Dose: 1 ampul Lipase/Protease/Amylase (Pancreaze Dr 10,500 Unit) 1 each FEEDTUBE PRN PRN PRN Reason: For Clogged Feeding Tube Bisacodyl (Dulcolax) 10 mg NV QDAY PRN PRN Reason: constipation unrelieved by MOM Dextrose (D50w (25gm) Syringe) 50 ml IV PRN PRN PRN Reason: Hypoglycemia Last Admin: 09/02/17 23:42 Dose: 50 ml Enoxaparin Sodium (Lovenox) 40 mg SUB-Q QDAY STEPHANIE Last Admin: 09/08/17 09:26 Dose: 40 mg Famotidine (Pepcid) 20 mg IV BID STEPHANIE Last Admin: 09/08/17 09:26 Dose: 20 mg Furosemide (Lasix) 40 mg IV 0600,1800 STEPHANIE Last Admin: 09/08/17 05:03 Dose: 40 mg Hydrophilic Ointment (Vaseline Lip Therapy) 1 applic TP Q2HR PRN PRN Reason: Dry Lips Last Admin: 09/02/17 10:15 Dose: 1 applic Fentanyl Citrate (Fentanyl Drip Premix) 2,000 mcg in 100 mls @ 2.903 mls/hr IV TITR STEPHANIE; 1 MCG/KG/HR PRN Reason: Protocol Last Admin: 09/08/17 06:16 Dose: 2 mcg/kg/hr, 5.806 mls/hr Vasopressin 20 unit/ Sodium (Chloride) 101 mls @ 9.09 mls/hr IV TITR STEPHANIE; 0.03 UNITS/MIN PRN Reason: Protocol Last Titration: 09/06/17 11:30 Dose: 0 units/min, 0 mls/hr Meropenem 1,000 mg/ Sodium (Chloride) 100 mls @ 100 mls/hr IV Q8H STEPHANIE PRN Reason: Protocol Last Admin: 09/08/17 15:47 Dose: 100 mls/hr Fluconazole (Diflucan) 200 mg in 100 mls @ 100 mls/hr IV Q24HR STEPHANIE PRN Reason: Protocol Last Admin: 09/08/17 09:26 Dose: 100 mls/hr Norepinephrine 8 mg/ Sodium (Chloride) 250 mls @ 3.75 mls/hr IV TITR STEPHANIE; 2 MCG /MIN PRN Reason: Protocol Last Titration: 09/08/17 10:51 Dose: 4 mcg/min, 7.5 mls/hr Phenylephrine HCl 100 mg/ (Sodium Chloride) 100 mls @ 3 mls/hr IV TITR STEPHANIE; 50 MCG/MIN PRN Reason: Protocol Last Titration: 09/05/17 18:00 Dose: 0 mcg/min, 0 mls/hr Azithromycin 500 mg/ Sodium (Chloride) 250 mls @ 250 mls/hr IV Q24HR [facility] Last Admin: 09/08/17 10:40 Dose: 250 mls/hr Midazolam HCl 100 mg/ Sodium (Chloride) 100 mls @ 2 mls/hr IV TITR STEPHANIE; 2 MG/HR PRN Reason: Protocol Last Admin: 09/08/17 06:15 Dose: 1 mg/hr, 1 mls/hr Dextrose (D5w) 1,000 mls @ 50 mls/hr IV DIRECT STEPHANIE Insulin Aspart (Novolog) 0 units SUB-Q Q6HR STEPHANIE PRN Reason: Protocol Last Admin: 09/08/17 12:47 Dose: 3 units Methylprednisolone Sodium Succinate (Solu-Medrol) 40 mg IV Q8H [facility] Last Admin: 09/08/17 12:47 Dose: 40 mg Multi-Ingred Cream/Lotion/Oil/Oint (Artificial Tears Ophth Oint) 1 applic OU Q4HR PRN PRN Reason: Dry Eye(s) Naloxone HCl (Narcan 0.4 Mg/1 Ml) 0.1 mg IV Q2MIN PRN PRN Reason: Res Rate </= 8 or 02 SAT < 92% Simple Syrup (Simple Syrup) 15 ml FEEDTUBE PRN PRN PRN Reason: Hypoglycemia Simple Syrup (Simple Syrup) 30 ml FEEDTUBE PRN PRN PRN Reason: Hypoglycemia Sodium Bicarbonate (Sodium Bicarbonate) 325 mg FEEDTUBE PRN PRN PRN Reason: For Clogged Feeding Tube Trimethoprim/Sulfamethoxazole (Bactrim Ds) 2 each PO Q8HR [facility] Last Admin: 09/08/17 06:16 Dose: 2 each Objective Vital Signs - 12hr 09/08/17 09/08/17 09/08/17 04:16 04:30 04:45 Temperature Pulse Rate 88 95 H 87 Pulse Rate [ Anterior Bilateral Throughout] Pulse Rate [ From Monitor] Respiratory 20 31 H 22 Rate Respiratory Rate [Anterior Bilateral Throughout] Blood Pressure 92/56 92/56 94/54 O2 Sat by Pulse 100 94 100 Oximetry 09/08/17 09/08/17 09/08/17 05:00 05:15 05:30 Temperature Pulse Rate 84 75 68 Pulse Rate [ Anterior Bilateral Throughout] Pulse Rate [ From Monitor] Respiratory 22 Rate Respiratory Rate [Anterior Bilateral Throughout] Blood Pressure 85/53 97/67 103/69 O2 Sat by Pulse 99 100 100 Oximetry 09/08/17 09/08/17 09/08/17 05:45 06:00 06:15 Temperature Pulse Rate 67 65 68 Pulse Rate [ Anterior Bilateral Throughout] Pulse Rate [ 68 From Monitor] Respiratory 21 Rate Respiratory Rate [Anterior Bilateral Throughout] Blood Pressure 107/68 111/70 106/72 O2 Sat by Pulse 100 100 100 Oximetry 09/08/17 09/08/17 09/08/17 06:30 06:45 07:00 Temperature Pulse Rate 68 74 73 Pulse Rate [ Anterior Bilateral Throughout] Pulse Rate [ From Monitor] Respiratory 22 Rate Respiratory Rate [Anterior Bilateral Throughout] Blood Pressure 106/70 111/72 111/72 O2 Sat by Pulse 100 100 100 Oximetry 09/08/17 09/08/17 09/08/17 07:15 07:25 07:30 Temperature Pulse Rate 73 70 Pulse Rate [ Anterior Bilateral Throughout] Pulse Rate [ 72 From Monitor] Respiratory 23 23 20 Rate Respiratory Rate [Anterior Bilateral Throughout] Blood Pressure 110/69 108/69 O2 Sat by Pulse 100 100 100 Oximetry 09/08/17 09/08/17 09/08/17 07:45 08:00 08:15 Temperature 97.7 F Pulse Rate 72 67 73 Pulse Rate [ Anterior Bilateral Throughout] Pulse Rate [ From Monitor] Respiratory 22 26 H 21 Rate Respiratory Rate [Anterior Bilateral Throughout] Blood Pressure 105/68 124/79 97/57 O2 Sat by Pulse 100 100 100 Oximetry 09/08/17 09/08/17 09/08/17 08:30 08:45 09:00 Temperature Pulse Rate 70 72 77 Pulse Rate [ Anterior Bilateral Throughout] Pulse Rate [ From Monitor] Respiratory 21 Rate Respiratory Rate [Anterior Bilateral Throughout] Blood Pressure 93/57 94/59 97/56 O2 Sat by Pulse 100 100 99 Oximetry 09/08/17 09/08/17 09/08/17 09:15 09:30 09:45 Temperature Pulse Rate 78 76 77 Pulse Rate [ 78 Anterior Bilateral Throughout] Pulse Rate [ From Monitor] Respiratory 21 24 26 H Rate Respiratory 20 Rate [Anterior Bilateral Throughout] Blood Pressure 103/63 109/67 99/59 O2 Sat by Pulse 99 98 96 Oximetry 09/08/17 09/08/17 09/08/17 09:50 10:00 10:05 Temperature Pulse Rate 74 76 Pulse Rate [ 80 Anterior Bilateral Throughout] Pulse Rate [ From Monitor] Respiratory 22 Rate Respiratory 22 Rate [Anterior Bilateral Throughout] Blood Pressure 99/59 93/56 O2 Sat by Pulse 98 98 Oximetry 09/08/17 09/08/17 09/08/17 10:15 10:30 10:45 Temperature Pulse Rate 70 75 Pulse Rate [ Anterior Bilateral Throughout] Pulse Rate [ 60 From Monitor] Respiratory 22 22 22 Rate Respiratory Rate [Anterior Bilateral Throughout] Blood Pressure 93/56 87/31 O2 Sat by Pulse 99 98 99 Oximetry 09/08/17 09/08/17 09/08/17 10:46 11:00 11:15 Temperature Pulse Rate 67 68 70 Pulse Rate [ Anterior Bilateral Throughout] Pulse Rate [ From Monitor] Respiratory 23 22 22 Rate Respiratory Rate [Anterior Bilateral Throughout] Blood Pressure 110/72 103/63 100/61 O2 Sat by Pulse 100 99 100 Oximetry 09/08/17 09/08/17 09/08/17 11:30 11:38 11:45 Temperature Pulse Rate 68 84 Pulse Rate [ Anterior Bilateral Throughout] Pulse Rate [ 65 From Monitor] Respiratory 22 24 22 Rate Respiratory Rate [Anterior Bilateral Throughout] Blood Pressure 102/65 85/51 O2 Sat by Pulse 99 99 100 Oximetry 09/08/17 09/08/17 09/08/17 12:00 12:15 12:30 Temperature 97.6 F Pulse Rate 70 73 69 Pulse Rate [ Anterior Bilateral Throughout] Pulse Rate [ From Monitor] Respiratory 22 22 22 Rate Respiratory Rate [Anterior Bilateral Throughout] Blood Pressure 106/64 98/63 106/66 O2 Sat by Pulse 99 100 99 Oximetry 09/08/17 09/08/17 09/08/17 12:45 13:00 13:15 Temperature Pulse Rate 67 65 63 Pulse Rate [ Anterior Bilateral Throughout] Pulse Rate [ From Monitor] Respiratory 22 22 22 Rate Respiratory Rate [Anterior Bilateral Throughout] Blood Pressure 101/64 104/65 107/67 O2 Sat by Pulse 99 100 99 Oximetry 09/08/17 09/08/17 09/08/17 13:30 13:45 13:54 Temperature Pulse Rate 66 73 67 Pulse Rate [ Anterior Bilateral Throughout] Pulse Rate [ From Monitor] Respiratory 22 22 Rate Respiratory Rate [Anterior Bilateral Throughout] Blood Pressure 106/66 104/70 101/64 O2 Sat by Pulse 100 99 98 Oximetry 09/08/17 09/08/17 09/08/17 14:00 14:06 14:15 Temperature Pulse Rate 74 76 Pulse Rate [ Anterior Bilateral Throughout] Pulse Rate [ 75 From Monitor] Respiratory 22 22 22 Rate Respiratory Rate [Anterior Bilateral Throughout] Blood Pressure 95/57 98/60 O2 Sat by Pulse 97 97 97 Oximetry 09/08/17 09/08/17 09/08/17 14:30 14:45 15:00 Temperature Pulse Rate 69 68 64 Pulse Rate [ Anterior Bilateral Throughout] Pulse Rate [ From Monitor] Respiratory 22 22 22 Rate Respiratory Rate [Anterior Bilateral Throughout] Blood Pressure 95/58 100/62 95/57 O2 Sat by Pulse 98 97 97 Oximetry 09/08/17 09/08/17 09/08/17 15:15 15:30 15:45 Temperature Pulse Rate 65 71 72 Pulse Rate [ Anterior Bilateral Throughout] Pulse Rate [ From Monitor] Respiratory 22 20 22 Rate Respiratory Rate [Anterior Bilateral Throughout] Blood Pressure 100/61 98/57 101/63 O2 Sat by Pulse 97 98 97 Oximetry 09/08/17 15:52 Temperature Pulse Rate Pulse Rate [ Anterior Bilateral Throughout] Pulse Rate [ 65 From Monitor] Respiratory 22 Rate Respiratory Rate [Anterior Bilateral Throughout] Blood Pressure O2 Sat by Pulse 97 Oximetry Constitutional: other (critically ill on vent, sedated) Eyes: non-icteric ENT: other (orally intubated and sedated) Neck: supple Effort: normal Ascultation: Bilateral: other (coarse BS bilaterally) Percussion: Bilateral: not dull Cardiovascular: regular rate and rhythm (sinus tach) Gastrointestinal: hypoactive bowel sounds, soft, non-tender, non-distended Extremities: no cyanosis, no edema, pink and warm Neurologic: normal mental status, non-focal exam, pupils equal and round, CN II- XII normal Psychiatric: other (unable to assess) CBC and BMP: 09/08/17 05:30 09/08/17 05:30 ABG, PT/INR, D-dimer: ABG POC ABG pH 7.460 (7.35-7.45) H 09/08/17 05:15 POC ABG pCO2 54.7 (35-45) H 09/08/17 05:15 POC ABG pO2 209 (80-105) H 09/08/17 05:15 POC ABG HCO3 38.9 09/08/17 05:15 POC ABG Total CO2 41 09/08/17 05:15 POC ABG O2 Sat 100 09/08/17 05:15 PT/INR, D-dimer PT 28.4 Sec. (12.2-14.9) H 09/04/17 04:00 INR 2.47 (0.87-1.13) H 09/04/17 04:00 D-Dimer 976.43 ng/mlDDU (0-234) H 09/01/17 23:27 Abnormal lab findings: Abnormal Labs 09/01/17 09/01/17 09/01/17 19:00 19:00 23:27 WBC RBC Hgb 10.9 L Hct 32.3 L MCV 83 L MCH RDW 15.6 H Plt Count [place] % (Auto) Seg Neutrophils % Seg Neuts % (Manual) Lymphocytes % (Manual) Nucleated RBC % Seg Neutrophils # Man Lymphocytes # (Manual) PT INR Fibrinogen D-Dimer 976.43 H POC ABG pH POC ABG pCO2 POC ABG pO2 Sodium 133 L Potassium Chloride 96.4 L Carbon Dioxide BUN Glucose 113 H POC Glucose Lactic Acid Calcium Phosphorus Magnesium AST ALT Lactate Dehydrogenase C-Reactive Protein Total Protein Albumin Lipase 09/01/17 09/02/17 09/02/17 23:27 01:25 07:36 WBC 2.2 L RBC 3.41 L Hgb 9.6 L Hct 28.9 L MCV MCH RDW 16.0 H Plt Count [place] % (Auto) 12.6 H Seg Neutrophils % 70.4 H Seg Neuts % (Manual) Lymphocytes % (Manual) Nucleated RBC % Seg Neutrophils # Man 1.1 L Lymphocytes # (Manual) 0.6 L PT INR Fibrinogen D-Dimer POC ABG pH POC ABG pCO2 POC ABG pO2 Sodium Potassium Chloride Carbon Dioxide BUN Glucose POC Glucose Lactic Acid 3.30 H* 4.10 H* Calcium Phosphorus Magnesium AST ALT Lactate Dehydrogenase C-Reactive Protein Total Protein Albumin Lipase 09/02/17 09/02/17 09/02/17 07:36 07:36 07:36 WBC RBC Hgb Hct MCV MCH RDW Plt Count [place] % (Auto) Seg Neutrophils % Seg Neuts % (Manual) Lymphocytes % (Manual) Nucleated RBC % Seg Neutrophils # Man Lymphocytes # (Manual) PT 18.6 H INR 1.46 H Fibrinogen D-Dimer POC ABG pH POC ABG pCO2 POC ABG pO2 Sodium 136 L Potassium Chloride Carbon Dioxide BUN Glucose POC Glucose Lactic Acid 3.80 H* Calcium Phosphorus Magnesium 1.20 L AST ALT Lactate Dehydrogenase C-Reactive Protein Total Protein 9.1 H Albumin 2.0 L Lipase 09/02/17 09/02/17 09/02/17 08:49 09:40 11:33 WBC RBC Hgb Hct MCV MCH RDW Plt Count [place] % (Auto) Seg Neutrophils % Seg Neuts % (Manual) Lymphocytes % (Manual) Nucleated RBC % Seg Neutrophils # Man Lymphocytes # (Manual) PT INR Fibrinogen D-Dimer POC ABG pH 7.313 L POC ABG pCO2 POC ABG pO2 116 H Sodium Potassium Chloride Carbon Dioxide BUN Glucose POC Glucose Lactic Acid 3.60 H* 5.20 H* Calcium Phosphorus Magnesium AST ALT Lactate Dehydrogenase C-Reactive Protein Total Protein Albumin Lipase 09/02/17 09/02/17 09/02/17 19:34 23:37 23:40 WBC RBC Hgb Hct MCV MCH RDW Plt Count [place] % (Auto) Seg Neutrophils % Seg Neuts % (Manual) Lymphocytes % (Manual) Nucleated RBC % Seg Neutrophils # Man Lymphocytes # (Manual) PT INR Fibrinogen D-Dimer POC ABG pH POC ABG pCO2 POC ABG pO2 Sodium Potassium Chloride Carbon Dioxide BUN Glucose 59 L POC Glucose 47 L Lactic Acid Calcium Phosphorus Magnesium AST ALT Lactate Dehydrogenase C-Reactive Protein 22.30 H Total Protein Albumin Lipase 09/03/17 09/03/17 09/03/17 00:06 05:15 05:15 WBC RBC 3.59 L Hgb 10.1 L Hct 31.5 L MCV MCH RDW 18.0 H Plt Count [place] % (Auto) Seg Neutrophils % Seg Neuts % (Manual) Lymphocytes % (Manual) 1.0 L Nucleated RBC % 1.0 H Seg Neutrophils # Man Lymphocytes # (Manual) 0.1 L PT INR Fibrinogen D-Dimer POC ABG pH POC ABG pCO2 POC ABG pO2 Sodium Potassium Chloride Carbon Dioxide BUN Glucose POC Glucose 144 H Lactic Acid 9.10 H* Calcium Phosphorus Magnesium AST ALT Lactate Dehydrogenase C-Reactive Protein Total Protein Albumin Lipase 09/03/17 09/03/17 09/03/17 05:15 05:55 07:40 WBC RBC Hgb Hct MCV MCH RDW Plt Count [place] % (Auto) Seg Neutrophils % Seg Neuts % (Manual) Lymphocytes % (Manual) Nucleated RBC % Seg Neutrophils # Man Lymphocytes # (Manual) PT INR Fibrinogen D-Dimer POC ABG pH 6.999 L POC ABG pCO2 POC ABG pO2 64 L Sodium Potassium 5.6 H D Chloride 108.4 H Carbon Dioxide 11 L D BUN 30 H Glucose 115 H POC Glucose Lactic Acid 9.20 H* Calcium 7.3 L D Phosphorus 6.40 H Magnesium AST 88 H ALT Lactate Dehydrogenase C-Reactive Protein Total Protein Albumin 1.7 L Lipase 09/03/17 09/03/17 09/03/17 09:55 12:03 13:17 WBC RBC Hgb Hct MCV MCH RDW Plt Count [place] % (Auto) Seg Neutrophils % Seg Neuts % (Manual) Lymphocytes % (Manual) Nucleated RBC % Seg Neutrophils # Man Lymphocytes # (Manual) PT INR Fibrinogen D-Dimer POC ABG pH POC ABG pCO2 POC ABG pO2 Sodium Potassium Chloride Carbon Dioxide BUN Glucose POC Glucose 155 H Lactic Acid 9.50 H* 9.90 H* Calcium Phosphorus Magnesium AST ALT Lactate Dehydrogenase C-Reactive Protein Total Protein Albumin Lipase 09/03/17 09/03/17 09/03/17 15:55 17:13 18:02 WBC RBC Hgb Hct MCV MCH RDW Plt Count [place] % (Auto) Seg Neutrophils % Seg Neuts % (Manual) Lymphocytes % (Manual) Nucleated RBC % Seg Neutrophils # Man Lymphocytes # (Manual) PT INR Fibrinogen D-Dimer POC ABG pH POC ABG pCO2 POC ABG pO2 Sodium Potassium Chloride Carbon Dioxide BUN Glucose POC Glucose 171 H Lactic Acid 9.60 H* 9.00 H* Calcium Phosphorus Magnesium AST ALT Lactate Dehydrogenase C-Reactive Protein Total Protein Albumin Lipase 09/03/17 09/03/17 09/04/17 20:29 23:02 04:00 WBC RBC Hgb Hct MCV MCH RDW Plt Count [place] % (Auto) Seg Neutrophils % Seg Neuts % (Manual) Lymphocytes % (Manual) Nucleated RBC % Seg Neutrophils # Man Lymphocytes # (Manual) PT INR Fibrinogen D-Dimer POC ABG pH POC ABG pCO2 POC ABG pO2 Sodium Potassium Chloride Carbon Dioxide BUN Glucose POC Glucose 156 H Lactic Acid 9.00 H* 3.00 H* Calcium Phosphorus Magnesium AST ALT Lactate Dehydrogenase C-Reactive Protein Total Protein Albumin Lipase 09/04/17 09/04/17 09/04/17 04:00 04:00 09:00 WBC RBC 3.44 L Hgb 9.6 L Hct 29.0 L MCV MCH RDW 17.4 H Plt Count 124 L [place] % (Auto) Seg Neutrophils % Seg Neuts % (Manual) 91.0 H Lymphocytes % (Manual) 3.0 L Nucleated RBC % 2.0 H Seg Neutrophils # Man 9.9 H Lymphocytes # (Manual) 0.3 L PT 28.4 H INR 2.47 H Fibrinogen D-Dimer POC ABG pH POC ABG pCO2 POC ABG pO2 Sodium Potassium Chloride 110.1 H Carbon Dioxide BUN 29 H Glucose 192 H POC Glucose Lactic Acid Calcium 6.8 L Phosphorus Magnesium AST 361 H ALT 315 H Lactate Dehydrogenase C-Reactive Protein Total Protein Albumin 1.6 L Lipase 09/04/17 09/04/17 09/04/17 09:00 12:00 17:23 WBC RBC Hgb Hct MCV MCH RDW Plt Count [place] % (Auto) Seg Neutrophils % Seg Neuts % (Manual) Lymphocytes % (Manual) Nucleated RBC % Seg Neutrophils # Man Lymphocytes # (Manual) PT INR Fibrinogen 611 H D-Dimer POC ABG pH POC ABG pCO2 POC ABG pO2 Sodium Potassium Chloride Carbon Dioxide BUN Glucose POC Glucose Lactic Acid 2.10 H* 3.40 H* Calcium Phosphorus Magnesium AST ALT Lactate Dehydrogenase C-Reactive Protein Total Protein Albumin Lipase 09/04/17 09/04/17 09/04/17 17:23 17:47 22:30 WBC RBC Hgb Hct MCV MCH RDW Plt Count [place] % (Auto) Seg Neutrophils % Seg Neuts % (Manual) Lymphocytes % (Manual) Nucleated RBC % Seg Neutrophils # Man Lymphocytes # (Manual) PT INR Fibrinogen D-Dimer POC ABG pH POC ABG pCO2 POC ABG pO2 Sodium Potassium Chloride Carbon Dioxide BUN Glucose POC Glucose 107 H Lactic Acid 4.70 H* Calcium Phosphorus Magnesium AST ALT Lactate Dehydrogenase C-Reactive Protein Total Protein Albumin Lipase 12 L 09/04/17 09/05/17 09/05/17 23:08 05:31 06:00 WBC RBC Hgb Hct MCV MCH RDW Plt Count [place] % (Auto) Seg Neutrophils % Seg Neuts % (Manual) Lymphocytes % (Manual) Nucleated RBC % Seg Neutrophils # Man Lymphocytes # (Manual) PT INR Fibrinogen D-Dimer POC ABG pH 7.226 L POC ABG pCO2 65.4 H POC ABG pO2 61 L Sodium Potassium Chloride 112.7 H Carbon Dioxide BUN 31 H Glucose 132 H POC Glucose 109 H Lactic Acid Calcium 7.7 L Phosphorus Magnesium AST 834 H ALT 898 H Lactate Dehydrogenase C-Reactive Protein Total Protein Albumin 1.4 L Lipase 09/05/17 09/05/17 09/05/17 06:00 06:35 10:26 WBC RBC Hgb Hct MCV MCH RDW Plt Count [place] % (Auto) Seg Neutrophils % Seg Neuts % (Manual) Lymphocytes % (Manual) Nucleated RBC % Seg Neutrophils # Man Lymphocytes # (Manual) PT INR Fibrinogen D-Dimer POC ABG pH 7.311 L POC ABG pCO2 58.5 H POC ABG pO2 213 H Sodium Potassium Chloride Carbon Dioxide BUN Glucose POC Glucose 110 H Lactic Acid 4.50 H* Calcium Phosphorus Magnesium AST ALT Lactate Dehydrogenase C-Reactive Protein Total Protein Albumin Lipase 09/05/17 09/05/17 09/05/17 10:55 10:55 10:55 WBC 11.1 H RBC 3.38 L Hgb 9.3 L Hct 28.7 L MCV MCH RDW 16.7 H Plt Count 118 L [place] % (Auto) Seg Neutrophils % Seg Neuts % (Manual) 92.0 H Lymphocytes % (Manual) 4.0 L Nucleated RBC % 2.0 H Seg Neutrophils # Man 10.2 H Lymphocytes # (Manual) 0.4 L PT INR Fibrinogen D-Dimer POC ABG pH POC ABG pCO2 POC ABG pO2 Sodium Potassium Chloride Carbon Dioxide BUN Glucose POC Glucose Lactic Acid 3.60 H* Calcium Phosphorus Magnesium AST ALT Lactate Dehydrogenase 571 H C-Reactive Protein Total Protein Albumin Lipase 09/05/17 09/05/17 09/05/17 12:05 16:30 17:42 WBC RBC Hgb Hct MCV MCH RDW Plt Count [place] % (Auto) Seg Neutrophils % Seg Neuts % (Manual) Lymphocytes % (Manual) Nucleated RBC % Seg Neutrophils # Man Lymphocytes # (Manual) PT INR Fibrinogen D-Dimer POC ABG pH POC ABG pCO2 POC ABG pO2 Sodium Potassium Chloride Carbon Dioxide BUN Glucose POC Glucose 148 H 183 H Lactic Acid 3.50 H* Calcium Phosphorus Magnesium AST ALT Lactate Dehydrogenase C-Reactive Protein Total Protein Albumin Lipase 0209/05/17 09/06/17 19:55 23:29 03:58 WBC RBC Hgb Hct MCV MCH RDW Plt Count [place] % (Auto) Seg Neutrophils % Seg Neuts % (Manual) Lymphocytes % (Manual) Nucleated RBC % Seg Neutrophils # Man Lymphocytes # (Manual) PT INR Fibrinogen D-Dimer POC ABG pH POC ABG pCO2 62.5 H POC ABG pO2 141 H Sodium Potassium Chloride Carbon Dioxide BUN Glucose POC Glucose 203 H Lactic Acid 3.60 H* Calcium Phosphorus Magnesium AST ALT Lactate Dehydrogenase C-Reactive Protein Total Protein Albumin Lipase 09/06/17 09/06/17 09/06/17 05:33 06:15 06:15 WBC RBC Hgb Hct MCV MCH RDW Plt Count [place] % (Auto) Seg Neutrophils % Seg Neuts % (Manual) Lymphocytes % (Manual) Nucleated RBC % Seg Neutrophils # Man Lymphocytes # (Manual) PT INR Fibrinogen D-Dimer POC ABG pH POC ABG pCO2 POC ABG pO2 Sodium 150 H Potassium Chloride 110.9 H Carbon Dioxide 31 H BUN 34 H Glucose 207 H POC Glucose 207 H Lactic Acid 2.90 H* Calcium 8.2 L Phosphorus Magnesium AST 346 H ALT 634 H Lactate Dehydrogenase C-Reactive Protein Total Protein Albumin 1.5 L Lipase 09/06/17 09/06/17 09/06/17 06:15 08:03 11:32 WBC RBC 3.26 L Hgb 9.0 L Hct 27.5 L MCV MCH RDW 16.7 H Plt Count 104 L [place] % (Auto) Seg Neutrophils % Seg Neuts % (Manual) 97.0 H Lymphocytes % (Manual) 2.0 L Nucleated RBC % Seg Neutrophils # Man 8.1 H Lymphocytes # (Manual) 0.2 L PT INR Fibrinogen D-Dimer POC ABG pH POC ABG pCO2 POC ABG pO2 Sodium Potassium Chloride Carbon Dioxide BUN Glucose POC Glucose 169 H Lactic Acid 2.90 H* Calcium Phosphorus Magnesium AST ALT Lactate Dehydrogenase C-Reactive Protein Total Protein Albumin Lipase 09/06/17 09/07/17 09/07/17 18:04 00:03 04:13 WBC RBC Hgb Hct MCV MCH RDW Plt Count [place] % (Auto) Seg Neutrophils % Seg Neuts % (Manual) Lymphocytes % (Manual) Nucleated RBC % Seg Neutrophils # Man Lymphocytes # (Manual) PT INR Fibrinogen D-Dimer POC ABG pH POC ABG pCO2 POC ABG pO2 Sodium 152 H Potassium 3.5 L Chloride 114.9 H Carbon Dioxide 34 H BUN 35 H Glucose 149 H POC Glucose 130 H 123 H Lactic Acid Calcium Phosphorus Magnesium AST 150 H ALT 381 H Lactate Dehydrogenase C-Reactive Protein Total Protein Albumin 1.3 L Lipase 09/07/17 09/07/17 09/07/17 04:33 05:05 08:20 WBC 11.9 H RBC 3.11 L Hgb 8.4 L Hct 26.0 L MCV MCH 27 L RDW 16.2 H Plt Count 109 L [place] % (Auto) Seg Neutrophils % Seg Neuts % (Manual) 93.0 H Lymphocytes % (Manual) 1.0 L Nucleated RBC % Seg Neutrophils # Man 11.1 H Lymphocytes # (Manual) 0.1 L PT INR Fibrinogen D-Dimer POC ABG pH 7.590 H POC ABG pCO2 POC ABG pO2 179 H Sodium Potassium Chloride Carbon Dioxide BUN Glucose POC Glucose 168 H Lactic Acid Calcium Phosphorus Magnesium AST ALT Lactate Dehydrogenase C-Reactive Protein Total Protein Albumin Lipase 09/07/17 09/07/17 09/07/17 11:34 18:13 20:14 WBC 14.6 H RBC 3.36 L Hgb 9.2 L Hct 28.3 L MCV MCH 27 L RDW 16.1 H Plt Count 120 L [place] % (Auto) Seg Neutrophils % Seg Neuts % (Manual) 93.0 H Lymphocytes % (Manual) 2.0 L Nucleated RBC % Seg Neutrophils # Man 13.6 H Lymphocytes # (Manual) 0.3 L PT INR Fibrinogen D-Dimer POC ABG pH POC ABG pCO2 POC ABG pO2 Sodium Potassium Chloride Carbon Dioxide BUN Glucose POC Glucose 156 H 136 H Lactic Acid Calcium Phosphorus Magnesium AST ALT Lactate Dehydrogenase C-Reactive Protein Total Protein Albumin Lipase 09/07/17 09/08/17 09/08/17 20:14 05:15 05:30 WBC RBC Hgb Hct MCV MCH RDW Plt Count [place] % (Auto) Seg Neutrophils % Seg Neuts % (Manual) Lymphocytes % (Manual) Nucleated RBC % Seg Neutrophils # Man Lymphocytes # (Manual) PT INR Fibrinogen D-Dimer POC ABG pH 7.460 H POC ABG pCO2 54.7 H POC ABG pO2 209 H Sodium 154 H Potassium 3.4 L Chloride 114.7 H Carbon Dioxide 34 H BUN 37 H Glucose 131 H POC Glucose Lactic Acid Calcium Phosphorus Magnesium AST ALT Lactate Dehydrogenase C-Reactive Protein 8.70 H Total Protein Albumin Lipase 09/08/17 09/08/17 05:30 05:30 WBC 13.6 H RBC 3.29 L Hgb 9.1 L Hct 27.4 L MCV 83 L MCH RDW 15.8 H Plt Count 111 L [place] % (Auto) Seg Neutrophils % Seg Neuts % (Manual) 94.0 H Lymphocytes % (Manual) 4.0 L Nucleated RBC % 1.0 H Seg Neutrophils # Man 12.8 H Lymphocytes # (Manual) 0.5 L PT INR Fibrinogen D-Dimer POC ABG pH POC ABG pCO2 POC ABG pO2 Sodium 154 H Potassium Chloride 114.3 H Carbon Dioxide 36 H BUN 39 H Glucose 163 H POC Glucose Lactic Acid Calcium Phosphorus Magnesium AST ALT Lactate Dehydrogenase C-Reactive Protein Total Protein Albumin Lipase Chest x-ray: report reviewed, image reviewed (on change from 09/07/17)
[2017-09-08 16:30] LABS: HIV-1 RNA QN PCR 3.24 Log cps/mL
[2017-09-08] MEDS: D5W 1,000 ML IV SCH (16:39)
[2017-09-08 18:17] LABS: CD4/CD8 Ratio 0.1 (0.86-5.00)
[2017-09-08] MEDS: LEVOPHED 8 MG in NACL 0.9% 250ML 242 ML IV SCH (18:55)
[2017-09-09] MEDS: MERREM 1,000 MG in NACL 0.9% 100 ML IV SCH ×3 (00:18→17:00)
[2017-09-09] MEDS: NOVOLOG SUB-Q SCH ×4 (00:18→17:27)
[2017-09-09] MEDS: DUONEB *Not for PRN Use IH SCH ×4 (02:35→19:54)
[2017-09-09 04:43] LABS: Hemoglobin 9.2 gm/dl (11.8-15.2); Mean Corpuscular HGB Conc 33 % (32-34); Mean Corpuscular Hemoglobin 27 pg (28-32); Mean Corpuscular Volume 83 fl (84-94); Platelet Count 123 K/mm3 (140-440); Red Blood Count 3.37 M/mm3 (3.65-5.03); Red Cell Distribution Width 15.7 % (13.2-15.2)
[2017-09-09 04:57] LABS: BUN/Creatinine Ratio 49; Blood Urea Nitrogen 39 mg/dL (9-20); Calcium 8.9 mg/dL (8.4-10.2); Hemolysis Index 0
[2017-09-09] MEDS: LASIX IV SCH (05:57)
[2017-09-09] MEDS: BACTRIM DS PO SCH ×3 (05:57→21:54)
--- NOTE | 2017-09-09 06:13 | XRay Report ---
FINAL REPORT PROCEDURE: XR CHEST 1V AP TECHNIQUE: Chest radiograph anteroposterior view. CPT 04641 HISTORY: follow up respiratory failure COMPARISON: 09/08/2017 FINDINGS: Heart: Normal. Mediastinum/Vessels: Normal. Lungs/Pleural space: There are bilateral perihilar pulmonary infiltrates slightly increased since the prior study. There is a small right pleural effusion. There is no pneumothorax.. Bony thorax: No acute osseous abnormality. Life support devices: The endotracheal tube is in the mid trachea. The NG tube is the stomach. There is a right-sided central venous catheter. The tip is in the superior vena cava.. IMPRESSION: Heart size is normal.. There are bilateral perihilar pulmonary infiltrates slightly increased since the prior study. There is a small right pleural effusion. There is no pneumothorax.. The endotracheal tube is in the mid trachea. The NG tube is the stomach. There is a right-sided central venous catheter. The tip is in the superior vena cava..
[2017-09-09 07:44] LABS: Band Neutrophils # (Manual) 0.4 K/mm3; Basophils % (Manual) 0 % (0.0-1.8); Eosinophils % (Manual) 0 % (0.0-4.3); Total Cells Counted 100
[2017-09-09 07:45] LABS: Anisocytosis 1+
[2017-09-09 07:48] LABS: Smudge Cells Few
[2017-09-09 07:49] LABS: Platelet Estimate Consistent w Auto
[2017-09-09] MEDS: LOVENOX SUB-Q SCH (09:38)
[2017-09-09] MEDS: DIFLUCAN 200 MG/100 ML BAG IV SCH (09:43)
[2017-09-09] MEDS: KCL 20MEQ/100ML 20 MEQ/100 ML BAG IV SCH ×2 (09:43→11:21)
[2017-09-09] MEDS: PEPCID IV SCH ×2 (09:45→21:54)
[2017-09-09] MEDS: ZITHROMAX 500 MG in NACL 0.9% 250ML 250 ML IV SCH (09:46)
[2017-09-09] MEDS: fentaNYL DRIP Premix 2,000 MCG/100 ML BAG IV SCH (11:20)
--- NOTE | 2017-09-09 13:00 | Progress Note ---
Assessment and Plan Assessment and plan: 52-year-old male presents to the emergency department with complaint of shortness of breath and some midsternal right-sided chest discomfort with inspiration that started earlier this afternoon and radiates towards the back. The patient was just discharged from the [facility] a few days ago after spending some time therefore bilateral pneumonia. He is on Bactrim and just finished a course of antifungal medication for oral thrush. He denies any past medical history other than this pneumonia. He does not smoke or use illicit drugs. His physicians are through the [facility]. Patient was recently discharged from a 6 day hospital stay at the [facility]. He denies any leg swelling, nausea, vomiting or fever. * Septic shock due to underlying pneumonia * Pneumonia bacteria - Ramón neg rods, Gram Negative bacteremia, also concern for PJP * Acute hypoxemic respiratory failure intubated 09/01/17, on MV >96 hours * Hyperkalemia - corrected * Anemia of chronic disease * Hypernatremia * multiple liver masses suspicious for metastatic disease * Portal vein thrombosis? 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 The aggregate critical care time was [44] minutes. This time is in addition to time spent performing reported procedures but includes the following: [] Data Review and interpretation [] Patient assessment and monitoring of vital signs [] Documentation [] Medication orders and management History Interval history: remains intubated and sedated remains pressor dependent Hospitalist Physical - Physical exam Narrative exam: General appearance: Present: no acute distress, well-nourished, other (intubated ) - EENT Eyes: Present: PERRL ENT: clear oral mucosa - Neck Neck: Present: supple - Respiratory Respiratory effort: labored Respiratory: bilateral: rales - Cardiovascular Rhythm: regular Heart Sounds: Present: S1 & S2 - Extremities Extremities: no ischemia Peripheral Pulses: within normal limits - Abdominal General gastrointestinal: soft, non-distended - Integumentary Integumentary: Present: clear, warm, dry - Psychiatric Psychiatric: other (intubated/sedated) - Neurologic Neurologic: other (intubated/sedated) - Constitutional Vitals: Temp Pulse Resp BP Pulse Ox 98.0 F 100 H 32 H 124/75 91 09/09/17 12:00 09/09/17 12:00 09/09/17 12:00 09/09/17 12:00 09/09/17 12:00 General appearance: Present: no acute distress, well-nourished, other (intubated ) Results - Labs CBC & Chem 7: 09/09/17 04:00 09/09/17 04:00 Labs: Laboratory Last Values WBC 20.1 K/mm3 (4.5-11.0) H 09/09/17 04:00 RBC 3.37 M/mm3 (3.65-5.03) L 09/09/17 04:00 Hgb 9.2 gm/dl (11.8-15.2) L 09/09/17 04:00 Hct 28.0 % (35.5-45.6) L 09/09/17 04:00 MCV 83 fl (84-94) L 09/09/17 04:00 MCH 27 pg (28-32) L 09/09/17 04:00 MCHC 33 % (32-34) 09/09/17 04:00 RDW 15.7 % (13.2-15.2) H 09/09/17 04:00 Plt Count 123 K/mm3 (140-440) L 09/09/17 04:00 [place] % (Auto) 12.6 % (0.0-7.3) H 09/02/17 07:36 Eos % (Auto) 0.3 % (0.0-4.3) 09/02/17 07:36 [place] # 0.4 K/mm3 (0.0-0.8) 09/02/17 07:36 Eos # 0.0 K/mm3 (0.0-0.4) 09/02/17 07:36 Baso # 0.0 K/mm3 (0.0-0.1) 09/02/17 07:36 Add Manual Diff Complete 09/09/17 04:00 Total Counted 100 09/09/17 04:00 Seg Neutrophils % First Coat Operator 09/09/17 04:00 Seg Neuts % (Manual) 86.0 % (40.0-70.0) H 09/09/17 04:00 Band Neutrophils % 2.0 % 09/09/17 04:00 Lymphocytes % (Manual) 9.0 % (13.4-35.0) L 09/09/17 04:00 Reactive Lymphs % (Man) 0 % 09/09/17 04:00 Monocytes % (Manual) 3.0 % (0.0-7.3) 09/09/17 04:00 Eosinophils % (Manual) 0 % (0.0-4.3) 09/09/17 04:00 Basophils % (Manual) 0 % (0.0-1.8) 09/09/17 04:00 Metamyelocytes % 0 % 09/09/17 04:00 Myelocytes % 0 % 09/09/17 04:00 Promyelocytes % 0 % 09/09/17 04:00 Blast Cells % 0 % 09/09/17 04:00 Nucleated RBC % Not Reportable 09/09/17 04:00 Seg Neutrophils # 2.1 K/mm3 (1.8-7.7) 09/02/17 07:36 Seg Neutrophils # Man 17.3 K/mm3 (1.8-7.7) H 09/09/17 04:00 Band Neutrophils # 0.4 K/mm3 09/09/17 04:00 Abs Lymphs (Manual) 1470 cells/uL (850-3900) 09/05/17 14:30 Lymphocytes # (Manual) 1.8 K/mm3 (1.2-5.4) 09/09/17 04:00 Abs React Lymphs (Man) 0.0 K/mm3 09/09/17 04:00 Monocytes # (Manual) 0.6 K/mm3 (0.0-0.8) 09/09/17 04:00 Eosinophils # (Manual) 0.0 K/mm3 (0.0-0.4) 09/09/17 04:00 Basophils # (Manual) 0.0 K/mm3 (0.0-0.1) 09/09/17 04:00 Metamyelocytes # 0.0 K/mm3 09/09/17 04:00 Myelocytes # 0.0 K/mm3 09/09/17 04:00 Promyelocytes # 0.0 K/mm3 09/09/17 04:00 Blast Cells # 0.0 K/mm3 09/09/17 04:00 WBC Morphology Not Reportable 09/09/17 04:00 Hypersegmented Neuts Not Reportable 09/09/17 04:00 Hyposegmented Neuts Not Reportable 09/09/17 04:00 Hypogranular Neuts Not Reportable 09/09/17 04:00 Smudge Cells Few 09/09/17 04:00 Toxic Granulation Not Reportable 09/09/17 04:00 Toxic Vacuolation Not Reportable 09/09/17 04:00 Dohle Bodies Not Reportable 09/09/17 04:00 Pelger-Huet Anomaly Not Reportable 09/09/17 04:00 Efren Rods Not Reportable 09/09/17 04:00 Platelet Estimate Consistent w auto 09/09/17 04:00 Clumped Platelets Not Reportable 09/09/17 04:00 Plt Clumps, EDTA Not Reportable 09/09/17 04:00 Large Platelets Not Reportable 09/09/17 04:00 Giant Platelets Not Reportable 09/09/17 04:00 Platelet Satelliting Not Reportable 09/09/17 04:00 Plt Morphology Comment Not Reportable 09/09/17 04:00 RBC Morphology Not Reportable 09/09/17 04:00 Dimorphic RBCs Not Reportable 09/09/17 04:00 Polychromasia Not Reportable 09/09/17 04:00 Hypochromasia Not Reportable 09/09/17 04:00 Poikilocytosis Not Reportable 09/09/17 04:00 Anisocytosis 1+ 09/09/17 04:00 Microcytosis Not Reportable 09/09/17 04:00 Macrocytosis Not Reportable 09/09/17 04:00 Spherocytes Not Reportable 09/09/17 04:00 Pappenheimer Bodies Not Reportable 09/09/17 04:00 Sickle Cells Not Reportable 09/09/17 04:00 Target Cells Not Reportable 09/09/17 04:00 Tear Drop Cells Not Reportable 09/09/17 04:00 Ovalocytes Not Reportable 09/09/17 04:00 Helmet Cells Not Reportable 09/09/17 04:00 [place] Bodies Not Reportable 09/09/17 04:00 [place] Rings Not Reportable 09/09/17 04:00 [place] Cells Not Reportable 09/09/17 04:00 Bite Cells Not Reportable 09/09/17 04:00 Crenated Cell Not Reportable 09/09/17 04:00 Elliptocytes Not Reportable 09/09/17 04:00 Acanthocytes (Spur) Not Reportable 09/09/17 04:00 Rouleaux Not Reportable 09/09/17 04:00 Hemoglobin C Crystals Not Reportable 09/09/17 04:00 Schistocytes Not Reportable 09/09/17 04:00 Malaria parasites Not Reportable 09/09/17 04:00 [place] Bodies Not Reportable 09/09/17 04:00 Hem Pathologist Commnt No 09/09/17 04:00 PT 28.4 Sec. (12.2-14.9) H 09/04/17 04:00 INR 2.47 (0.87-1.13) H 09/04/17 04:00 APTT 35.4 Sec. (24.2-36.6) 09/02/17 07:36 Fibrinogen 611 mg/dl (211-480) H 09/04/17 17:23 D-Dimer 976.43 ng/mlDDU (0-234) H 09/01/17 23:27 POC ABG pH 7.575 (7.35-7.45) H 09/09/17 04:34 POC ABG pCO2 42.1 (35-45) 09/09/17 04:34 POC ABG pO2 63 (80-105) L 09/09/17 04:34 POC ABG HCO3 39.0 09/09/17 04:34 POC ABG Total CO2 40 09/09/17 04:34 POC ABG O2 Sat 95 09/09/17 04:34 POC ABG Base Excess 17 09/09/17 04:34 FiO2 45 % 09/09/17 04:34 Sodium 150 mmol/L (137-145) H 09/09/17 04:00 Potassium 3.0 mmol/L (3.6-5.0) L 09/09/17 04:00 Chloride 107.7 mmol/L (98-107) H 09/09/17 04:00 Carbon Dioxide 35 mmol/L (22-30) H 09/09/17 04:00 Anion Gap 10 mmol/L 09/09/17 04:00 BUN 39 mg/dL (9-20) H 09/09/17 04:00 Creatinine 0.8 mg/dL (0.8-1.5) 09/09/17 04:00 Estimated GFR > 60 ml/min 09/09/17 04:00 BUN/Creatinine Ratio 49 % 09/09/17 04:00 Glucose 174 mg/dL (75-100) H 09/09/17 04:00 POC Glucose 126 (70-105) H 09/09/17 12:04 Lactic Acid 2.90 mmol/L (0.7-2.0) H* 09/06/17 08:03 Calcium 8.9 mg/dL (8.4-10.2) 09/09/17 04:00 Phosphorus 6.40 mg/dL (2.5-4.5) H 09/03/17 05:15 Magnesium 1.80 mg/dL (1.7-2.3) 09/03/17 05:15 Total Bilirubin 0.30 mg/dL (0.1-1.2) 09/07/17 04:13 AST 150 units/L (5-40) H 09/07/17 04:13 ALT 381 units/L (7-56) H 09/07/17 04:13 Alkaline Phosphatase 103 units/L (35-129) 09/07/17 04:13 Lactate Dehydrogenase 571 units/L (91-180) H 09/05/17 10:55 Troponin T < 0.010 ng/mL (0.00-0.029) 09/01/17 23:27 C-Reactive Protein 8.70 mg/dL (0.00-1.30) H 09/08/17 05:30 NT-Pro-B Natriuret Pep 315.2 pg/mL (0-900) 09/01/17 23:27 Total Protein 7.0 g/dL (6.3-8.2) 09/07/17 04:13 Albumin 1.3 g/dL (3.9-5) L 09/07/17 04:13 Albumin/Globulin Ratio 0.2 % 09/07/17 04:13 Lipase 12 units/L (13-60) L 09/04/17 17:23 Vancomycin Trough 15.3 ug/mL (5.0-20.0) 09/04/17 17:23 Lymph Enumerat CD4/CD8 0.10 (0.86-5.00) L 09/05/17 14:30 % CD3 Cells 75 % (57-85) 09/05/17 14:30 Absolute CD3 Count 1105 cells/uL (840-3060) 09/05/17 14:30 % CD4 Cells 7 % (30-61) L 09/05/17 14:30 Absolute CD4 Count 101 cells/uL (490-1740) L 09/05/17 14:30 % CD8 Cells 66 % (12-42) H 09/05/17 14:30 Absolute CD8 Count 986 cells/uL (180-1170) 09/05/17 14:30 % CD19 Cells 4 % (6-29) L 09/05/17 14:30 Absolute CD19 Count 60 cells/uL (110-660) L 09/05/17 14:30 RPR Nonreactive (Nonreactive) 09/07/17 04:13 Hepatitis A IgM Ab Non-reactive (NonReactive) 09/05/17 10:55 Hep Bs Antigen Reactive (Negative) 09/05/17 10:55 Hep Bs Antibody, Quant <5 mIU/mL (>=10) L 09/07/17 04:13 Hep B Core Total Ab Reactive (Nonreactive) H 09/07/17 04:13 Hep B Core IgM Ab Non-reactive (NonReactive) 09/05/17 10:55 Hepatitis Be Antibody Nonreactive 09/07/17 04:13 Hepatitis Be Antigen Reactive H 09/07/17 04:13 Hepatitis C Antibody Non-reactive (NonReactive) 09/05/17 10:55 HIV-1 RNA PCR copies/ml 1750 Copies/mL H 09/05/17 14:30 HIV-1 RNA (PCR) log 3.24 Log cps/mL H 09/05/17 14:30 HIV 1&2 Antibody Rapid Reactive (Non React) 09/02/17 19:34 HIV P24 Antigen Non react (Non React) 09/02/17 19:34 Urine Legionella Ag Not detected (Not Detected) 09/02/17 13:55 TB (QFT) Gold In Tube Negative (Negative) 09/05/17 14:30 TB Test (QFT) Nil 0.04 IU/mL 09/05/17 14:30 TB Test Mitogen - Nil 2.28 IU/mL 09/05/17 14:30 TB Test Antigen - Nil 0.00 IU/mL 09/05/17 14:30 Miscellaneous Test Flexitest 1 09/06/17 11:30
[2017-09-09] MEDS ORDERED: POTASSIUM CHLORIDE FEEDTUBE ONE (16:24)
--- NOTE | 2017-09-09 16:29 | Progress Note ---
Assessment and Plan Imp: 1. E.coli bacteremia of ? source 2. Bilateral pneumonia 3. Pleural effusions, more likely volume-related but could be due to #2 4. Acute respiratory failure, hypoxia 5. Severe sepsis with septic shock 6. Lactic acidosis 7. HIV/AIDS, poorly compliant with HAART for past > 1 year per [facility]; last CD4 per [facility] was 133 8. Dilated CMP 9. Hypernatremia Rec: 1. ABX per ID; E.coli is sens to carbapenems 2. Free water per NG 300mL [id number]; cont. gentle D5W 3. Wean pressors to keep goal MAP > 65 4. Trach aspirate is negative for PCP; on Bactrim/steroids empirically -> taper the Solumedrol 5. Continue Lasix IV for now but change to daily; replete K and check mag 6. Needs CT a/p when more stable re: liver lesions 7. GI and DVT PPx; TFs 8. Reduce RR to 16; try to wean PEEP now to keep sats 88% or above; start PSV once down to +5 of PEEP and 50% or less FiO2 9. Prognosis remains guarded, although he has improved No family present today; Complex patient Subjective Date of service: 09/09/17 Principal diagnosis: Septic shock, acute hypoxemic respiratory failure, [place] Interval history: No events. Sedated. On FiO2 of 40% and PEEP of 8. On Levophed 3 mcg. Off Vasopressin. Tolerating Lasix. Active Medications Acetaminophen (Tylenol) 650 mg [place] Q4H PRN PRN Reason: Pain, Mild (1-3) Last Admin: 09/02/17 22:03 Dose: 650 mg Acetaminophen (Tylenol) 650 mg FEEDTUBE Q6H PRN PRN Reason: Pain, Mild (1-3) Last Admin: 09/05/17 13:54 Dose: 650 mg Al Hydrox/Mg Hydrox/Simethicone (Alum-Mag Hydrox-Simeth [phone]/5ml) 30 ml PO Q4H PRN PRN Reason: Indigestion Albuterol (Proventil) 2.5 mg IH Q3HRT PRN PRN Reason: Shortness Of Breath Albuterol/Ipratropium (Duoneb *Not For Prn Use*) 1 ampul IH Q6HRT [facility] Last Admin: 09/09/17 13:26 Dose: 1 ampul Lipase/Protease/Amylase (Pancreaze Dr 10,500 Unit) 1 each FEEDTUBE PRN PRN PRN Reason: For Clogged Feeding Tube Bisacodyl (Dulcolax) 10 mg [place] QDAY PRN PRN Reason: constipation unrelieved by MOM Dextrose (D50w (25gm) Syringe) 50 ml IV PRN PRN PRN Reason: Hypoglycemia Last Admin: 09/02/17 23:42 Dose: 50 ml Enoxaparin Sodium (Lovenox) 40 mg SUB-Q QDAY STEPHANIE Last Admin: 09/09/17 09:38 Dose: 40 mg Famotidine (Pepcid) 20 mg IV BID STEPHANIE Last Admin: 09/09/17 09:45 Dose: 20 mg Furosemide (Lasix) 40 mg IV QAM STEPHANIE Hydrophilic Ointment (Vaseline Lip Therapy) 1 applic TP Q2HR PRN PRN Reason: Dry Lips Last Admin: 09/02/17 10:15 Dose: 1 applic Fentanyl Citrate (Fentanyl Drip Premix) 2,000 mcg in 100 mls @ 2.903 mls/hr IV TITR STEPHANIE; 1 MCG/KG/HR PRN Reason: Protocol Last Admin: 09/09/17 11:20 Dose: 2 mcg/kg/hr, 5.806 mls/hr Vasopressin 20 unit/ Sodium (Chloride) 101 mls @ 9.09 mls/hr IV TITR STEPHANIE; 0.03 UNITS/MIN PRN Reason: Protocol Last Titration: 09/06/17 11:30 Dose: 0 units/min, 0 mls/hr Meropenem 1,000 mg/ Sodium (Chloride) 100 mls @ 100 mls/hr IV Q8H STEPHANIE PRN Reason: Protocol Last Admin: 09/09/17 09:44 Dose: 100 mls/hr Fluconazole (Diflucan) 200 mg in 100 mls @ 100 mls/hr IV Q24HR STEPHANIE PRN Reason: Protocol Last Admin: 09/09/17 09:43 Dose: 100 mls/hr Norepinephrine 8 mg/ Sodium (Chloride) 250 mls @ 3.75 mls/hr IV TITR STEPHANIE; 2 MCG /MIN PRN Reason: Protocol Last Titration: 09/09/17 13:30 Dose: 3 mcg/min, 5.62 mls/hr Phenylephrine HCl 100 mg/ (Sodium Chloride) 100 mls @ 3 mls/hr IV TITR STEPHANIE; 50 MCG/MIN PRN Reason: Protocol Last Titration: 09/05/17 18:00 Dose: 0 mcg/min, 0 mls/hr Azithromycin 500 mg/ Sodium (Chloride) 250 mls @ 250 mls/hr IV Q24HR STEPHANIE Last Admin: 09/09/17 09:46 Dose: 250 mls/hr Midazolam HCl 100 mg/ Sodium (Chloride) 100 mls @ 2 mls/hr IV TITR STEPHANIE; 2 MG/HR PRN Reason: Protocol Last Titration: 09/08/17 20:15 Dose: 2 mg/hr, 2 mls/hr Dextrose (D5w) 1,000 mls @ 50 mls/hr IV DIRECT STEPHANIE Last Admin: 09/08/17 16:39 Dose: 50 mls/hr Insulin Aspart (Novolog) 0 units SUB-Q Q6HR STEPHANIE PRN Reason: Protocol Last Admin: 09/09/17 12:54 Dose: Not Given Methylprednisolone Sodium Succinate (Solu-Medrol) 20 mg IV Q8H [facility] Multi-Ingred Cream/Lotion/Oil/Oint (Artificial Tears Ophth Oint) 1 applic OU Q4HR PRN PRN Reason: Dry Eye(s) Naloxone HCl (Narcan 0.4 Mg/1 Ml) 0.1 mg IV Q2MIN PRN PRN Reason: Res Rate </= 8 or 02 SAT < 92% Potassium Chloride (Potassium Chloride) 40 meq FEEDTUBE ONCE ONE Stop: 09/09/17 16:25 Simple Syrup (Simple Syrup) 15 ml FEEDTUBE PRN PRN PRN Reason: Hypoglycemia Simple Syrup (Simple Syrup) 30 ml FEEDTUBE PRN PRN PRN Reason: Hypoglycemia Sodium Bicarbonate (Sodium Bicarbonate) 325 mg FEEDTUBE PRN PRN PRN Reason: For Clogged Feeding Tube Trimethoprim/Sulfamethoxazole (Bactrim Ds) 2 each PO Q8HR [facility] Last Admin: 09/09/17 13:36 Dose: 2 each Objective Vital Signs - 12hr 09/09/17 09/09/17 09/09/17 04:30 05:00 05:10 Temperature 98.5 F Pulse Rate 108 H 96 H Pulse Rate [ Anterior Bilateral Throughout] Pulse Rate [ From Monitor] Respiratory 32 H Rate Respiratory Rate [Anterior Bilateral Throughout] Blood Pressure 122/67 116/68 O2 Sat by Pulse 93 94 Oximetry 09/09/17 09/09/17 09/09/17 06:00 07:00 08:00 Temperature 98.7 F Pulse Rate 100 H 112 H 93 H Pulse Rate [ Anterior Bilateral Throughout] Pulse Rate [ 81 From Monitor] Respiratory 37 H 37 H 25 H Rate Respiratory Rate [Anterior Bilateral Throughout] Blood Pressure 112/76 126/62 105/60 O2 Sat by Pulse 94 94 96 Oximetry 09/09/17 09/09/17 09/09/17 08:25 08:33 08:37 Temperature Pulse Rate 97 H Pulse Rate [ 86 87 Anterior Bilateral Throughout] Pulse Rate [ From Monitor] Respiratory Rate Respiratory 24 24 Rate [Anterior Bilateral Throughout] Blood Pressure 108/71 O2 Sat by Pulse 97 Oximetry 09/09/17 09/09/17 09/09/17 09:00 10:00 11:00 Temperature Pulse Rate 86 76 74 Pulse Rate [ Anterior Bilateral Throughout] Pulse Rate [ From Monitor] Respiratory 22 22 20 Rate Respiratory Rate [Anterior Bilateral Throughout] Blood Pressure 102/58 112/68 104/64 O2 Sat by Pulse 94 95 95 Oximetry 09/09/17 09/09/17 09/09/17 12:00 13:00 13:29 Temperature 98.0 F Pulse Rate 100 H 106 H 91 H Pulse Rate [ Anterior Bilateral Throughout] Pulse Rate [ From Monitor] Respiratory 32 H 34 H Rate Respiratory Rate [Anterior Bilateral Throughout] Blood Pressure 124/75 119/73 129/74 O2 Sat by Pulse 91 93 92 Oximetry 09/09/17 14:00 Temperature Pulse Rate 83 Pulse Rate [ Anterior Bilateral Throughout] Pulse Rate [ From Monitor] Respiratory 22 Rate Respiratory Rate [Anterior Bilateral Throughout] Blood Pressure 100/57 O2 Sat by Pulse 99 Oximetry Constitutional: other (critically ill on vent, sedated) Eyes: non-icteric ENT: other (orally intubated and sedated) Neck: supple Effort: normal Ascultation: Bilateral: other (coarse BS bilaterally) Percussion: Bilateral: not dull Cardiovascular: regular rate and rhythm (sinus tach) Gastrointestinal: hypoactive bowel sounds, soft, non-tender, non-distended Extremities: no cyanosis, no edema, pink and warm Neurologic: normal mental status, non-focal exam, pupils equal and round, CN II- XII normal Psychiatric: other (unable to assess) CBC and BMP: 02/24/18 04:00 09/09/17 04:00 ABG, PT/INR, D-dimer: ABG POC ABG pH 7.575 (7.35-7.45) H 09/09/17 04:34 POC ABG pCO2 42.1 (35-45) 09/09/17 04:34 POC ABG pO2 63 (80-105) L 09/09/17 04:34 POC ABG HCO3 39.0 09/09/17 04:34 POC ABG Total CO2 40 09/09/17 04:34 POC ABG O2 Sat 95 09/09/17 04:34 PT/INR, D-dimer PT 28.4 Sec. (12.2-14.9) H 09/04/17 04:00 INR 2.47 (0.87-1.13) H 09/04/17 04:00 D-Dimer 976.43 ng/mlDDU (0-234) H 09/01/17 23:27 Abnormal lab findings: Abnormal Labs 09/01/17 09/01/17 09/01/17 19:00 19:00 23:27 WBC RBC Hgb 10.9 L Hct 32.3 L MCV 83 L MCH RDW 15.6 H Plt Count [place] % (Auto) Seg Neutrophils % Seg Neuts % (Manual) Lymphocytes % (Manual) Nucleated RBC % Seg Neutrophils # Man Lymphocytes # (Manual) PT INR Fibrinogen D-Dimer 976.43 H POC ABG pH POC ABG pCO2 POC ABG pO2 Sodium 133 L Potassium Chloride 96.4 L Carbon Dioxide BUN Glucose 113 H POC Glucose Lactic Acid Calcium Phosphorus Magnesium AST ALT Lactate Dehydrogenase C-Reactive Protein Total Protein Albumin Lipase Lymph Enumerat CD4/CD8 % CD4 Cells Absolute CD4 Count % CD8 Cells % CD19 Cells Absolute CD19 Count Hep Bs Antibody, Quant Hep B Core Total Ab Hepatitis Be Antigen HIV-1 RNA PCR copies/ml HIV-1 RNA (PCR) log 09/01/17 09/02/17 09/02/17 23:27 01:25 07:36 WBC 2.2 L RBC 3.41 L Hgb 9.6 L Hct 28.9 L MCV MCH RDW 16.0 H Plt Count [place] % (Auto) 12.6 H Seg Neutrophils % 70.4 H Seg Neuts % (Manual) Lymphocytes % (Manual) Nucleated RBC % Seg Neutrophils # Man 1.1 L Lymphocytes # (Manual) 0.6 L PT INR Fibrinogen D-Dimer POC ABG pH POC ABG pCO2 POC ABG pO2 Sodium Potassium Chloride Carbon Dioxide BUN Glucose POC Glucose Lactic Acid 3.30 H* 4.10 H* Calcium Phosphorus Magnesium AST ALT Lactate Dehydrogenase C-Reactive Protein Total Protein Albumin Lipase Lymph Enumerat CD4/CD8 % CD4 Cells Absolute CD4 Count % CD8 Cells % CD19 Cells Absolute CD19 Count Hep Bs Antibody, Quant Hep B Core Total Ab Hepatitis Be Antigen HIV-1 RNA PCR copies/ml HIV-1 RNA (PCR) log 09/02/17 09/02/17 09/02/17 07:36 07:36 07:36 WBC RBC Hgb Hct MCV MCH RDW Plt Count [place] % (Auto) Seg Neutrophils % Seg Neuts % (Manual) Lymphocytes % (Manual) Nucleated RBC % Seg Neutrophils # Man Lymphocytes # (Manual) PT 18.6 H INR 1.46 H Fibrinogen D-Dimer POC ABG pH POC ABG pCO2 POC ABG pO2 Sodium 136 L Potassium Chloride Carbon Dioxide BUN Glucose POC Glucose Lactic Acid 3.80 H* Calcium Phosphorus Magnesium 1.20 L AST ALT Lactate Dehydrogenase C-Reactive Protein Total Protein 9.1 H Albumin 2.0 L Lipase Lymph Enumerat CD4/CD8 % CD4 Cells Absolute CD4 Count % CD8 Cells % CD19 Cells Absolute CD19 Count Hep Bs Antibody, Quant Hep B Core Total Ab Hepatitis Be Antigen HIV-1 RNA PCR copies/ml HIV-1 RNA (PCR) log 09/02/17 09/02/17 09/02/17 08:49 09:40 11:33 WBC RBC Hgb Hct MCV MCH RDW Plt Count [place] % (Auto) Seg Neutrophils % Seg Neuts % (Manual) Lymphocytes % (Manual) Nucleated RBC % Seg Neutrophils # Man Lymphocytes # (Manual) PT INR Fibrinogen D-Dimer POC ABG pH 7.313 L POC ABG pCO2 POC ABG pO2 116 H Sodium Potassium Chloride Carbon Dioxide BUN Glucose POC Glucose Lactic Acid 3.60 H* 5.20 H* Calcium Phosphorus Magnesium AST ALT Lactate Dehydrogenase C-Reactive Protein Total Protein Albumin Lipase Lymph Enumerat CD4/CD8 % CD4 Cells Absolute CD4 Count % CD8 Cells % CD19 Cells Absolute CD19 Count Hep Bs Antibody, Quant Hep B Core Total Ab Hepatitis Be Antigen HIV-1 RNA PCR copies/ml HIV-1 RNA (PCR) log 09/02/17 09/02/17 09/02/17 19:34 23:37 23:40 WBC RBC Hgb Hct MCV MCH RDW Plt Count [place] % (Auto) Seg Neutrophils % Seg Neuts % (Manual) Lymphocytes % (Manual) Nucleated RBC % Seg Neutrophils # Man Lymphocytes # (Manual) PT INR Fibrinogen D-Dimer POC ABG pH POC ABG pCO2 POC ABG pO2 Sodium Potassium Chloride Carbon Dioxide BUN Glucose 59 L POC Glucose 47 L Lactic Acid Calcium Phosphorus Magnesium AST ALT Lactate Dehydrogenase C-Reactive Protein 22.30 H Total Protein Albumin Lipase Lymph Enumerat CD4/CD8 % CD4 Cells Absolute CD4 Count % CD8 Cells % CD19 Cells Absolute CD19 Count Hep Bs Antibody, Quant Hep B Core Total Ab Hepatitis Be Antigen HIV-1 RNA PCR copies/ml HIV-1 RNA (PCR) log 09/03/17 09/03/17 09/03/17 00:06 05:15 05:15 WBC RBC 3.59 L Hgb 10.1 L Hct 31.5 L MCV MCH RDW 18.0 H Plt Count [place] % (Auto) Seg Neutrophils % Seg Neuts % (Manual) Lymphocytes % (Manual) 1.0 L Nucleated RBC % 1.0 H Seg Neutrophils # Man Lymphocytes # (Manual) 0.1 L PT INR Fibrinogen D-Dimer POC ABG pH POC ABG pCO2 POC ABG pO2 Sodium Potassium Chloride Carbon Dioxide BUN Glucose POC Glucose 144 H Lactic Acid 9.10 H* Calcium Phosphorus Magnesium AST ALT Lactate Dehydrogenase C-Reactive Protein Total Protein Albumin Lipase Lymph Enumerat CD4/CD8 % CD4 Cells Absolute CD4 Count % CD8 Cells % CD19 Cells Absolute CD19 Count Hep Bs Antibody, Quant Hep B Core Total Ab Hepatitis Be Antigen HIV-1 RNA PCR copies/ml HIV-1 RNA (PCR) log 09/03/17 09/03/17 09/03/17 05:15 05:55 07:40 WBC RBC Hgb Hct MCV MCH RDW Plt Count [place] % (Auto) Seg Neutrophils % Seg Neuts % (Manual) Lymphocytes % (Manual) Nucleated RBC % Seg Neutrophils # Man Lymphocytes # (Manual) PT INR Fibrinogen D-Dimer POC ABG pH 6.999 L POC ABG pCO2 POC ABG pO2 64 L Sodium Potassium 5.6 H D Chloride 108.4 H Carbon Dioxide 11 L D BUN 30 H Glucose 115 H POC Glucose Lactic Acid 9.20 H* Calcium 7.3 L D Phosphorus 6.40 H Magnesium AST 88 H ALT Lactate Dehydrogenase C-Reactive Protein Total Protein Albumin 1.7 L Lipase Lymph Enumerat CD4/CD8 % CD4 Cells Absolute CD4 Count % CD8 Cells % CD19 Cells Absolute CD19 Count Hep Bs Antibody, Quant Hep B Core Total Ab Hepatitis Be Antigen HIV-1 RNA PCR copies/ml HIV-1 RNA (PCR) log 09/03/17 09/03/17 09/03/17 09:55 12:03 13:17 WBC RBC Hgb Hct MCV MCH RDW Plt Count [place] % (Auto) Seg Neutrophils % Seg Neuts % (Manual) Lymphocytes % (Manual) Nucleated RBC % Seg Neutrophils # Man Lymphocytes # (Manual) PT INR Fibrinogen D-Dimer POC ABG pH POC ABG pCO2 POC ABG pO2 Sodium Potassium Chloride Carbon Dioxide BUN Glucose POC Glucose 155 H Lactic Acid 9.50 H* 9.90 H* Calcium Phosphorus Magnesium AST ALT Lactate Dehydrogenase C-Reactive Protein Total Protein Albumin Lipase Lymph Enumerat CD4/CD8 % CD4 Cells Absolute CD4 Count % CD8 Cells % CD19 Cells Absolute CD19 Count Hep Bs Antibody, Quant Hep B Core Total Ab Hepatitis Be Antigen HIV-1 RNA PCR copies/ml HIV-1 RNA (PCR) log 09/03/17 09/03/17 09/03/17 15:55 17:13 18:02 WBC RBC Hgb Hct MCV MCH RDW Plt Count [place] % (Auto) Seg Neutrophils % Seg Neuts % (Manual) Lymphocytes % (Manual) Nucleated RBC % Seg Neutrophils # Man Lymphocytes # (Manual) PT INR Fibrinogen D-Dimer POC ABG pH POC ABG pCO2 POC ABG pO2 Sodium Potassium Chloride Carbon Dioxide BUN Glucose POC Glucose 171 H Lactic Acid 9.60 H* 9.00 H* Calcium Phosphorus Magnesium AST ALT Lactate Dehydrogenase C-Reactive Protein Total Protein Albumin Lipase Lymph Enumerat CD4/CD8 % CD4 Cells Absolute CD4 Count % CD8 Cells % CD19 Cells Absolute CD19 Count Hep Bs Antibody, Quant Hep B Core Total Ab Hepatitis Be Antigen HIV-1 RNA PCR copies/ml HIV-1 RNA (PCR) log 09/03/17 09/03/17 09/04/17 20:29 23:02 04:00 WBC RBC Hgb Hct MCV MCH RDW Plt Count [place] % (Auto) Seg Neutrophils % Seg Neuts % (Manual) Lymphocytes % (Manual) Nucleated RBC % Seg Neutrophils # Man Lymphocytes # (Manual) PT INR Fibrinogen D-Dimer POC ABG pH POC ABG pCO2 POC ABG pO2 Sodium Potassium Chloride Carbon Dioxide BUN Glucose POC Glucose 156 H Lactic Acid 9.00 H* 3.00 H* Calcium Phosphorus Magnesium AST ALT Lactate Dehydrogenase C-Reactive Protein Total Protein Albumin Lipase Lymph Enumerat CD4/CD8 % CD4 Cells Absolute CD4 Count % CD8 Cells % CD19 Cells Absolute CD19 Count Hep Bs Antibody, Quant Hep B Core Total Ab Hepatitis Be Antigen HIV-1 RNA PCR copies/ml HIV-1 RNA (PCR) log 09/04/17 09/04/17 09/04/17 04:00 04:00 09:00 WBC RBC 3.44 L Hgb 9.6 L Hct 29.0 L MCV MCH RDW 17.4 H Plt Count 124 L [place] % (Auto) Seg Neutrophils % Seg Neuts % (Manual) 91.0 H Lymphocytes % (Manual) 3.0 L Nucleated RBC % 2.0 H Seg Neutrophils # Man 9.9 H Lymphocytes # (Manual) 0.3 L PT 28.4 H INR 2.47 H Fibrinogen D-Dimer POC ABG pH POC ABG pCO2 POC ABG pO2 Sodium Potassium Chloride 110.1 H Carbon Dioxide BUN 29 H Glucose 192 H POC Glucose Lactic Acid Calcium 6.8 L Phosphorus Magnesium AST 361 H ALT 315 H Lactate Dehydrogenase C-Reactive Protein Total Protein Albumin 1.6 L Lipase Lymph Enumerat CD4/CD8 % CD4 Cells Absolute CD4 Count % CD8 Cells % CD19 Cells Absolute CD19 Count Hep Bs Antibody, Quant Hep B Core Total Ab Hepatitis Be Antigen HIV-1 RNA PCR copies/ml HIV-1 RNA (PCR) log 09/04/17 09/04/17 09/04/17 09:00 12:00 17:23 WBC RBC Hgb Hct MCV MCH RDW Plt Count [place] % (Auto) Seg Neutrophils % Seg Neuts % (Manual) Lymphocytes % (Manual) Nucleated RBC % Seg Neutrophils # Man Lymphocytes # (Manual) PT INR Fibrinogen 611 H D-Dimer POC ABG pH POC ABG pCO2 POC ABG pO2 Sodium Potassium Chloride Carbon Dioxide BUN Glucose POC Glucose Lactic Acid 2.10 H* 3.40 H* Calcium Phosphorus Magnesium AST ALT Lactate Dehydrogenase C-Reactive Protein Total Protein Albumin Lipase Lymph Enumerat CD4/CD8 % CD4 Cells Absolute CD4 Count % CD8 Cells % CD19 Cells Absolute CD19 Count Hep Bs Antibody, Quant Hep B Core Total Ab Hepatitis Be Antigen HIV-1 RNA PCR copies/ml HIV-1 RNA (PCR) log 09/04/17 09/04/17 09/04/17 17:23 17:47 22:30 WBC RBC Hgb Hct MCV MCH RDW Plt Count [place] % (Auto) Seg Neutrophils % Seg Neuts % (Manual) Lymphocytes % (Manual) Nucleated RBC % Seg Neutrophils # Man Lymphocytes # (Manual) PT INR Fibrinogen D-Dimer POC ABG pH POC ABG pCO2 POC ABG pO2 Sodium Potassium Chloride Carbon Dioxide BUN Glucose POC Glucose 107 H Lactic Acid 4.70 H* Calcium Phosphorus Magnesium AST ALT Lactate Dehydrogenase C-Reactive Protein Total Protein Albumin Lipase 12 L Lymph Enumerat CD4/CD8 % CD4 Cells Absolute CD4 Count % CD8 Cells % CD19 Cells Absolute CD19 Count Hep Bs Antibody, Quant Hep B Core Total Ab Hepatitis Be Antigen HIV-1 RNA PCR copies/ml HIV-1 RNA (PCR) log 09/04/17 09/05/17 09/05/17 23:08 05:31 06:00 WBC RBC Hgb Hct MCV MCH RDW Plt Count [place] % (Auto) Seg Neutrophils % Seg Neuts % (Manual) Lymphocytes % (Manual) Nucleated RBC % Seg Neutrophils # Man Lymphocytes # (Manual) PT INR Fibrinogen D-Dimer POC ABG pH 7.226 L POC ABG pCO2 65.4 H POC ABG pO2 61 L Sodium Potassium Chloride 112.7 H Carbon Dioxide BUN 31 H Glucose 132 H POC Glucose 109 H Lactic Acid Calcium 7.7 L Phosphorus Magnesium AST 834 H ALT 898 H Lactate Dehydrogenase C-Reactive Protein Total Protein Albumin 1.4 L Lipase Lymph Enumerat CD4/CD8 % CD4 Cells Absolute CD4 Count % CD8 Cells % CD19 Cells Absolute CD19 Count Hep Bs Antibody, Quant Hep B Core Total Ab Hepatitis Be Antigen HIV-1 RNA PCR copies/ml HIV-1 RNA (PCR) log 09/05/17 09/05/17 09/05/17 06:00 06:35 10:26 WBC RBC Hgb Hct MCV MCH RDW Plt Count [place] % (Auto) Seg Neutrophils % Seg Neuts % (Manual) Lymphocytes % (Manual) Nucleated RBC % Seg Neutrophils # Man Lymphocytes # (Manual) PT INR Fibrinogen D-Dimer POC ABG pH 7.311 L POC ABG pCO2 58.5 H POC ABG pO2 213 H Sodium Potassium Chloride Carbon Dioxide BUN Glucose POC Glucose 110 H Lactic Acid 4.50 H* Calcium Phosphorus Magnesium AST ALT Lactate Dehydrogenase C-Reactive Protein Total Protein Albumin Lipase Lymph Enumerat CD4/CD8 % CD4 Cells Absolute CD4 Count % CD8 Cells % CD19 Cells Absolute CD19 Count Hep Bs Antibody, Quant Hep B Core Total Ab Hepatitis Be Antigen HIV-1 RNA PCR copies/ml HIV-1 RNA (PCR) log 09/05/17 09/05/17 09/05/17 10:55 10:55 10:55 WBC 11.1 H RBC 3.38 L Hgb 9.3 L Hct 28.7 L MCV MCH RDW 16.7 H Plt Count 118 L [place] % (Auto) Seg Neutrophils % Seg Neuts % (Manual) 92.0 H Lymphocytes % (Manual) 4.0 L Nucleated RBC % 2.0 H Seg Neutrophils # Man 10.2 H Lymphocytes # (Manual) 0.4 L PT INR Fibrinogen D-Dimer POC ABG pH POC ABG pCO2 POC ABG pO2 Sodium Potassium Chloride Carbon Dioxide BUN Glucose POC Glucose Lactic Acid 3.60 H* Calcium Phosphorus Magnesium AST ALT Lactate Dehydrogenase 571 H C-Reactive Protein Total Protein Albumin Lipase Lymph Enumerat CD4/CD8 % CD4 Cells Absolute CD4 Count % CD8 Cells % CD19 Cells Absolute CD19 Count Hep Bs Antibody, Quant Hep B Core Total Ab Hepatitis Be Antigen HIV-1 RNA PCR copies/ml HIV-1 RNA (PCR) log 09/05/17 09/05/17 09/05/17 12:05 14:30 14:30 WBC RBC Hgb Hct MCV MCH RDW Plt Count [place] % (Auto) Seg Neutrophils % Seg Neuts % (Manual) Lymphocytes % (Manual) Nucleated RBC % Seg Neutrophils # Man Lymphocytes # (Manual) PT INR Fibrinogen D-Dimer POC ABG pH POC ABG pCO2 POC ABG pO2 Sodium Potassium Chloride Carbon Dioxide BUN Glucose POC Glucose 148 H Lactic Acid Calcium Phosphorus Magnesium AST ALT Lactate Dehydrogenase C-Reactive Protein Total Protein Albumin Lipase Lymph Enumerat CD4/CD8 0.10 L % CD4 Cells 7 L Absolute CD4 Count 101 L % CD8 Cells 66 H % CD19 Cells 4 L Absolute CD19 Count 60 L Hep Bs Antibody, Quant Hep B Core Total Ab Hepatitis Be Antigen HIV-1 RNA PCR copies/ml 1750 H HIV-1 RNA (PCR) log 3.24 H 09/05/17 09/05/17 09/05/17 16:30 17:42 19:55 WBC RBC Hgb Hct MCV MCH RDW Plt Count [place] % (Auto) Seg Neutrophils % Seg Neuts % (Manual) Lymphocytes % (Manual) Nucleated RBC % Seg Neutrophils # Man Lymphocytes # (Manual) PT INR Fibrinogen D-Dimer POC ABG pH POC ABG pCO2 POC ABG pO2 Sodium Potassium Chloride Carbon Dioxide BUN Glucose POC Glucose 183 H Lactic Acid 3.50 H* 3.60 H* Calcium Phosphorus Magnesium AST ALT Lactate Dehydrogenase C-Reactive Protein Total Protein Albumin Lipase Lymph Enumerat CD4/CD8 % CD4 Cells Absolute CD4 Count % CD8 Cells % CD19 Cells Absolute CD19 Count Hep Bs Antibody, Quant Hep B Core Total Ab Hepatitis Be Antigen HIV-1 RNA PCR copies/ml HIV-1 RNA (PCR) log 09/05/17 09/06/17 09/06/17 23:29 03:58 05:33 WBC RBC Hgb Hct MCV MCH RDW Plt Count [place] % (Auto) Seg Neutrophils % Seg Neuts % (Manual) Lymphocytes % (Manual) Nucleated RBC % Seg Neutrophils # Man Lymphocytes # (Manual) PT INR Fibrinogen D-Dimer POC ABG pH POC ABG pCO2 62.5 H POC ABG pO2 141 H Sodium Potassium Chloride Carbon Dioxide BUN Glucose POC Glucose 203 H 207 H Lactic Acid Calcium Phosphorus Magnesium AST ALT Lactate Dehydrogenase C-Reactive Protein Total Protein Albumin Lipase Lymph Enumerat CD4/CD8 % CD4 Cells Absolute CD4 Count % CD8 Cells % CD19 Cells Absolute CD19 Count Hep Bs Antibody, Quant Hep B Core Total Ab Hepatitis Be Antigen HIV-1 RNA PCR copies/ml HIV-1 RNA (PCR) log 09/06/17 09/06/17 09/06/17 06:15 06:15 06:15 WBC RBC 3.26 L Hgb 9.0 L Hct 27.5 L MCV MCH RDW 16.7 H Plt Count 104 L [place] % (Auto) Seg Neutrophils % Seg Neuts % (Manual) 97.0 H Lymphocytes % (Manual) 2.0 L Nucleated RBC % Seg Neutrophils # Man 8.1 H Lymphocytes # (Manual) 0.2 L PT INR Fibrinogen D-Dimer POC ABG pH POC ABG pCO2 POC ABG pO2 Sodium 150 H Potassium Chloride 110.9 H Carbon Dioxide 31 H BUN 34 H Glucose 207 H POC Glucose Lactic Acid 2.90 H* Calcium 8.2 L Phosphorus Magnesium AST 346 H ALT 634 H Lactate Dehydrogenase C-Reactive Protein Total Protein Albumin 1.5 L Lipase Lymph Enumerat CD4/CD8 % CD4 Cells Absolute CD4 Count % CD8 Cells % CD19 Cells Absolute CD19 Count Hep Bs Antibody, Quant Hep B Core Total Ab Hepatitis Be Antigen HIV-1 RNA PCR copies/ml HIV-1 RNA (PCR) log 09/06/17 09/06/17 09/06/17 08:03 11:32 18:04 WBC RBC Hgb Hct MCV MCH RDW Plt Count [place] % (Auto) Seg Neutrophils % Seg Neuts % (Manual) Lymphocytes % (Manual) Nucleated RBC % Seg Neutrophils # Man Lymphocytes # (Manual) PT INR Fibrinogen D-Dimer POC ABG pH POC ABG pCO2 POC ABG pO2 Sodium Potassium Chloride Carbon Dioxide BUN Glucose POC Glucose 169 H 130 H Lactic Acid 2.90 H* Calcium Phosphorus Magnesium AST ALT Lactate Dehydrogenase C-Reactive Protein Total Protein Albumin Lipase Lymph Enumerat CD4/CD8 % CD4 Cells Absolute CD4 Count % CD8 Cells % CD19 Cells Absolute CD19 Count Hep Bs Antibody, Quant Hep B Core Total Ab Hepatitis Be Antigen HIV-1 RNA PCR copies/ml HIV-1 RNA (PCR) log 09/07/17 09/07/17 09/07/17 00:03 04:13 04:13 WBC RBC Hgb Hct MCV MCH RDW Plt Count [place] % (Auto) Seg Neutrophils % Seg Neuts % (Manual) Lymphocytes % (Manual) Nucleated RBC % Seg Neutrophils # Man Lymphocytes # (Manual) PT INR Fibrinogen D-Dimer POC ABG pH POC ABG pCO2 POC ABG pO2 Sodium 152 H Potassium 3.5 L Chloride 114.9 H Carbon Dioxide 34 H BUN 35 H Glucose 149 H POC Glucose 123 H Lactic Acid Calcium Phosphorus Magnesium AST 150 H ALT 381 H Lactate Dehydrogenase C-Reactive Protein Total Protein Albumin 1.3 L Lipase Lymph Enumerat CD4/CD8 % CD4 Cells Absolute CD4 Count % CD8 Cells % CD19 Cells Absolute CD19 Count Hep Bs Antibody, Quant Hep B Core Total Ab Reactive H Hepatitis Be Antigen HIV-1 RNA PCR copies/ml HIV-1 RNA (PCR) log 09/07/17 09/07/17 09/07/17 04:13 04:13 04:33 WBC RBC Hgb Hct MCV MCH RDW Plt Count [place] % (Auto) Seg Neutrophils % Seg Neuts % (Manual) Lymphocytes % (Manual) Nucleated RBC % Seg Neutrophils # Man Lymphocytes # (Manual) PT INR Fibrinogen D-Dimer POC ABG pH 7.590 H POC ABG pCO2 POC ABG pO2 179 H Sodium Potassium Chloride Carbon Dioxide BUN Glucose POC Glucose Lactic Acid Calcium Phosphorus Magnesium AST ALT Lactate Dehydrogenase C-Reactive Protein Total Protein Albumin Lipase Lymph Enumerat CD4/CD8 % CD4 Cells Absolute CD4 Count % CD8 Cells % CD19 Cells Absolute CD19 Count Hep Bs Antibody, Quant <5 L Hep B Core Total Ab Hepatitis Be Antigen Reactive H HIV-1 RNA PCR copies/ml HIV-1 RNA (PCR) log 09/07/17 09/07/17 09/07/17 05:05 08:20 11:34 WBC 11.9 H RBC 3.11 L Hgb 8.4 L Hct 26.0 L MCV MCH 27 L RDW 16.2 H Plt Count 109 L [place] % (Auto) Seg Neutrophils % Seg Neuts % (Manual) 93.0 H Lymphocytes % (Manual) 1.0 L Nucleated RBC % Seg Neutrophils # Man 11.1 H Lymphocytes # (Manual) 0.1 L PT INR Fibrinogen D-Dimer POC ABG pH POC ABG pCO2 POC ABG pO2 Sodium Potassium Chloride Carbon Dioxide BUN Glucose POC Glucose 168 H 156 H Lactic Acid Calcium Phosphorus Magnesium AST ALT Lactate Dehydrogenase C-Reactive Protein Total Protein Albumin Lipase Lymph Enumerat CD4/CD8 % CD4 Cells Absolute CD4 Count % CD8 Cells % CD19 Cells Absolute CD19 Count Hep Bs Antibody, Quant Hep B Core Total Ab Hepatitis Be Antigen HIV-1 RNA PCR copies/ml HIV-1 RNA (PCR) log 09/07/17 09/07/17 09/07/17 18:13 20:14 20:14 WBC 14.6 H RBC 3.36 L Hgb 9.2 L Hct 28.3 L MCV MCH 27 L RDW 16.1 H Plt Count 120 L [place] % (Auto) Seg Neutrophils % Seg Neuts % (Manual) 93.0 H Lymphocytes % (Manual) 2.0 L Nucleated RBC % Seg Neutrophils # Man 13.6 H Lymphocytes # (Manual) 0.3 L PT INR Fibrinogen D-Dimer POC ABG pH POC ABG pCO2 POC ABG pO2 Sodium 154 H Potassium 3.4 L Chloride 114.7 H Carbon Dioxide 34 H BUN 37 H Glucose 131 H POC Glucose 136 H Lactic Acid Calcium Phosphorus Magnesium AST ALT Lactate Dehydrogenase C-Reactive Protein Total Protein Albumin Lipase Lymph Enumerat CD4/CD8 % CD4 Cells Absolute CD4 Count % CD8 Cells % CD19 Cells Absolute CD19 Count Hep Bs Antibody, Quant Hep B Core Total Ab Hepatitis Be Antigen HIV-1 RNA PCR copies/ml HIV-1 RNA (PCR) log 09/08/17 09/08/17 09/08/17 05:15 05:30 05:30 WBC 13.6 H RBC 3.29 L Hgb 9.1 L Hct 27.4 L MCV 83 L MCH RDW 15.8 H Plt Count 111 L [place] % (Auto) Seg Neutrophils % Seg Neuts % (Manual) 94.0 H Lymphocytes % (Manual) 4.0 L Nucleated RBC % 1.0 H Seg Neutrophils # Man 12.8 H Lymphocytes # (Manual) 0.5 L PT INR Fibrinogen D-Dimer POC ABG pH 7.460 H POC ABG pCO2 54.7 H POC ABG pO2 209 H Sodium Potassium Chloride Carbon Dioxide BUN Glucose POC Glucose Lactic Acid Calcium Phosphorus Magnesium AST ALT Lactate Dehydrogenase C-Reactive Protein 8.70 H Total Protein Albumin Lipase Lymph Enumerat CD4/CD8 % CD4 Cells Absolute CD4 Count % CD8 Cells % CD19 Cells Absolute CD19 Count Hep Bs Antibody, Quant Hep B Core Total Ab Hepatitis Be Antigen HIV-1 RNA PCR copies/ml HIV-1 RNA (PCR) log 09/08/17 09/08/17 09/08/17 05:30 12:24 17:19 WBC RBC Hgb Hct MCV MCH RDW Plt Count [place] % (Auto) Seg Neutrophils % Seg Neuts % (Manual) Lymphocytes % (Manual) Nucleated RBC % Seg Neutrophils # Man Lymphocytes # (Manual) PT INR Fibrinogen D-Dimer POC ABG pH POC ABG pCO2 POC ABG pO2 Sodium 154 H Potassium Chloride 114.3 H Carbon Dioxide 36 H BUN 39 H Glucose 163 H POC Glucose 181 H 170 H Lactic Acid Calcium Phosphorus Magnesium AST ALT Lactate Dehydrogenase C-Reactive Protein Total Protein Albumin Lipase Lymph Enumerat CD4/CD8 % CD4 Cells Absolute CD4 Count % CD8 Cells % CD19 Cells Absolute CD19 Count Hep Bs Antibody, Quant Hep B Core Total Ab Hepatitis Be Antigen HIV-1 RNA PCR copies/ml HIV-1 RNA (PCR) log 09/08/17 09/09/17 09/09/17 23:51 04:00 04:00 WBC 20.1 H RBC 3.37 L Hgb 9.2 L Hct 28.0 L MCV 83 L MCH 27 L RDW 15.7 H Plt Count 123 L [place] % (Auto) Seg Neutrophils % Seg Neuts % (Manual) 86.0 H Lymphocytes % (Manual) 9.0 L Nucleated RBC % Seg Neutrophils # Man 17.3 H Lymphocytes # (Manual) PT INR Fibrinogen D-Dimer POC ABG pH POC ABG pCO2 POC ABG pO2 Sodium 150 H Potassium 3.0 L Chloride 107.7 H Carbon Dioxide 35 H BUN 39 H Glucose 174 H POC Glucose 185 H Lactic Acid Calcium Phosphorus Magnesium AST ALT Lactate Dehydrogenase C-Reactive Protein Total Protein Albumin Lipase Lymph Enumerat CD4/CD8 % CD4 Cells Absolute CD4 Count % CD8 Cells % CD19 Cells Absolute CD19 Count Hep Bs Antibody, Quant Hep B Core Total Ab Hepatitis Be Antigen HIV-1 RNA PCR copies/ml HIV-1 RNA (PCR) log 09/09/17 09/09/17 09/09/17 04:34 05:57 12:04 WBC RBC Hgb Hct MCV MCH RDW Plt Count [place] % (Auto) Seg Neutrophils % Seg Neuts % (Manual) Lymphocytes % (Manual) Nucleated RBC % Seg Neutrophils # Man Lymphocytes # (Manual) PT INR Fibrinogen D-Dimer POC ABG pH 7.575 H POC ABG pCO2 POC ABG pO2 63 L Sodium Potassium Chloride Carbon Dioxide BUN Glucose POC Glucose 170 H 126 H Lactic Acid Calcium Phosphorus Magnesium AST ALT Lactate Dehydrogenase C-Reactive Protein Total Protein Albumin Lipase Lymph Enumerat CD4/CD8 % CD4 Cells Absolute CD4 Count % CD8 Cells % CD19 Cells Absolute CD19 Count Hep Bs Antibody, Quant Hep B Core Total Ab Hepatitis Be Antigen HIV-1 RNA PCR copies/ml HIV-1 RNA (PCR) log Chest x-ray: report reviewed, image reviewed
[2017-09-09] MEDS: D5W 1,000 ML IV SCH (17:27)
[2017-09-10] MEDS: NOVOLOG SUB-Q SCH ×4 (00:30→18:15)
[2017-09-10] MEDS: MERREM 1,000 MG in NACL 0.9% 100 ML IV SCH ×2 (00:59→08:35)
[2017-09-10] MEDS: fentaNYL DRIP Premix 2,000 MCG/100 ML BAG IV SCH ×2 (01:05→14:00)
[2017-09-10] MEDS: DUONEB *Not for PRN Use IH SCH ×4 (01:23→19:59)
--- NOTE | 2017-09-10 02:06 | Progress Note ---
Assessment and Plan Assessment and plan: 52-year-old male presents to the emergency department with complaint of shortness of breath and some midsternal right-sided chest discomfort with inspiration that started earlier this afternoon and radiates towards the back. The patient was just discharged from the [facility] a few days ago after spending some time therefore bilateral pneumonia. He is on Bactrim and just finished a course of antifungal medication for oral thrush. He denies any past medical history other than this pneumonia. He does not smoke or use illicit drugs. His physicians are through the [facility]. Patient was recently discharged from a 6 day hospital stay at the [facility]. He denies any leg swelling, nausea, vomiting or fever. * Septic shock due to underlying pneumonia * Pneumonia bacteria - Ramón neg rods, Gram Negative bacteremia * Acute hypoxemic respiratory failure intubated 09/01/17, on MV >96 hours * Hyperkalemia - corrected * Anemia * Anemia of chronic disease * Hypernatremia * Possible metastatict liver disease * Portal vein thrombosis Plan - Continuue pressors and abx, id input appreciated Continue on mechanical ventilation Aggresive Bronchodilator Tx, continue diuresis Cube Cutter Following Pul congestion with airway disease per CXR of 09/06/17- Monitor CBC and electrolytes continue free water replacement DVT GI prophylaxis with Lovenox and Pepcid Discussed with Critical care physician VTE prophylaxis?: Chemical, Mechanical The high probability of a clinically significant, sudden or life threatening deterioration of the [cv, renal, pulmonary] system(s) required my full and direct attention, intervention and personal management. The aggregate critical care time was [44] minutes. This time is in addition to time spent performing reported procedures but includes the following: [] Data Review and interpretation [] Patient assessment and monitoring of vital signs [] Documentation [] Medication orders and management History Interval history: remains intubated and sedated remains pressor dependent Hospitalist Physical - Physical exam Narrative exam: General appearance: Present: no acute distress, well-nourished, other (intubated ) - EENT Eyes: Present: PERRL ENT: clear oral mucosa - Neck Neck: Present: supple - Respiratory Respiratory effort: labored Respiratory: bilateral: rales - Cardiovascular Rhythm: regular Heart Sounds: Present: S1 & S2 - Extremities Extremities: no ischemia Peripheral Pulses: within normal limits - Abdominal General gastrointestinal: soft, non-distended - Integumentary Integumentary: Present: clear, warm, dry - Psychiatric Psychiatric: other (intubated/sedated) - Neurologic Neurologic: other (intubated/sedated) - Constitutional Vitals: Temp Pulse Resp BP Pulse Ox 99.0 F 65 20 105/61 96 09/10/17 00:00 09/10/17 01:37 09/10/17 01:37 09/09/17 23:42 09/09/17 23:42 General appearance: Present: no acute distress, well-nourished, other (intubated ) Results - Labs CBC & Chem 7: 09/09/17 04:00 09/09/17 04:00 Labs: Laboratory Last Values WBC 20.1 K/mm3 (4.5-11.0) H 09/09/17 04:00 RBC 3.37 M/mm3 (3.65-5.03) L 09/09/17 04:00 Hgb 9.2 gm/dl (11.8-15.2) L 09/09/17 04:00 Hct 28.0 % (35.5-45.6) L 09/09/17 04:00 MCV 83 fl (84-94) L 09/09/17 04:00 MCH 27 pg (28-32) L 09/09/17 04:00 MCHC 33 % (32-34) 09/09/17 04:00 RDW 15.7 % (13.2-15.2) H 09/09/17 04:00 Plt Count 123 K/mm3 (140-440) L 09/09/17 04:00 [place] % (Auto) 12.6 % (0.0-7.3) H 09/02/17 07:36 Eos % (Auto) 0.3 % (0.0-4.3) 09/02/17 07:36 [place] # 0.4 K/mm3 (0.0-0.8) 09/02/17 07:36 Eos # 0.0 K/mm3 (0.0-0.4) 09/02/17 07:36 Baso # 0.0 K/mm3 (0.0-0.1) 09/02/17 07:36 Add Manual Diff Complete 09/09/17 04:00 Total Counted 100 09/09/17 04:00 Seg Neutrophils % Photo Retoucher 09/09/17 04:00 Seg Neuts % (Manual) 86.0 % (40.0-70.0) H 09/09/17 04:00 Band Neutrophils % 2.0 % 09/09/17 04:00 Lymphocytes % (Manual) 9.0 % (13.4-35.0) L 09/09/17 04:00 Reactive Lymphs % (Man) 0 % 09/09/17 04:00 Monocytes % (Manual) 3.0 % (0.0-7.3) 09/09/17 04:00 Eosinophils % (Manual) 0 % (0.0-4.3) 09/09/17 04:00 Basophils % (Manual) 0 % (0.0-1.8) 09/09/17 04:00 Metamyelocytes % 0 % 09/09/17 04:00 Myelocytes % 0 % 09/09/17 04:00 Promyelocytes % 0 % 09/09/17 04:00 Blast Cells % 0 % 09/09/17 04:00 Nucleated RBC % Not Reportable 09/09/17 04:00 Seg Neutrophils # 2.1 K/mm3 (1.8-7.7) 09/02/17 07:36 Seg Neutrophils # Man 17.3 K/mm3 (1.8-7.7) H 09/09/17 04:00 Band Neutrophils # 0.4 K/mm3 09/09/17 04:00 Abs Lymphs (Manual) 1470 cells/uL (850-3900) 09/05/17 14:30 Lymphocytes # (Manual) 1.8 K/mm3 (1.2-5.4) 09/09/17 04:00 Abs React Lymphs (Man) 0.0 K/mm3 09/09/17 04:00 Monocytes # (Manual) 0.6 K/mm3 (0.0-0.8) 09/09/17 04:00 Eosinophils # (Manual) 0.0 K/mm3 (0.0-0.4) 09/09/17 04:00 Basophils # (Manual) 0.0 K/mm3 (0.0-0.1) 09/09/17 04:00 Metamyelocytes # 0.0 K/mm3 09/09/17 04:00 Myelocytes # 0.0 K/mm3 09/09/17 04:00 Promyelocytes # 0.0 K/mm3 09/09/17 04:00 Blast Cells # 0.0 K/mm3 09/09/17 04:00 WBC Morphology Not Reportable 09/09/17 04:00 Hypersegmented Neuts Not Reportable 09/09/17 04:00 Hyposegmented Neuts Not Reportable 09/09/17 04:00 Hypogranular Neuts Not Reportable 09/09/17 04:00 Smudge Cells Few 09/09/17 04:00 Toxic Granulation Not Reportable 09/09/17 04:00 Toxic Vacuolation Not Reportable 09/09/17 04:00 Dohle Bodies Not Reportable 09/09/17 04:00 Pelger-Huet Anomaly Not Reportable 09/09/17 04:00 Efren Rods Not Reportable 09/09/17 04:00 Platelet Estimate Consistent w auto 09/09/17 04:00 Clumped Platelets Not Reportable 09/09/17 04:00 Plt Clumps, EDTA Not Reportable 09/09/17 04:00 Large Platelets Not Reportable 09/09/17 04:00 Giant Platelets Not Reportable 09/09/17 04:00 Platelet Satelliting Not Reportable 09/09/17 04:00 Plt Morphology Comment Not Reportable 09/09/17 04:00 RBC Morphology Not Reportable 09/09/17 04:00 Dimorphic RBCs Not Reportable 09/09/17 04:00 Polychromasia Not Reportable 09/09/17 04:00 Hypochromasia Not Reportable 09/09/17 04:00 Poikilocytosis Not Reportable 09/09/17 04:00 Anisocytosis 1+ 09/09/17 04:00 Microcytosis Not Reportable 09/09/17 04:00 Macrocytosis Not Reportable 09/09/17 04:00 Spherocytes Not Reportable 09/09/17 04:00 Pappenheimer Bodies Not Reportable 09/09/17 04:00 Sickle Cells Not Reportable 09/09/17 04:00 Target Cells Not Reportable 09/09/17 04:00 Tear Drop Cells Not Reportable 09/09/17 04:00 Ovalocytes Not Reportable 09/09/17 04:00 Helmet Cells Not Reportable 09/09/17 04:00 [place] Bodies Not Reportable 09/09/17 04:00 [place] Rings Not Reportable 09/09/17 04:00 [place] Cells Not Reportable 09/09/17 04:00 Bite Cells Not Reportable 09/09/17 04:00 Crenated Cell Not Reportable 09/09/17 04:00 Elliptocytes Not Reportable 09/09/17 04:00 Acanthocytes (Spur) Not Reportable 09/09/17 04:00 Rouleaux Not Reportable 09/09/17 04:00 Hemoglobin C Crystals Not Reportable 09/09/17 04:00 Schistocytes Not Reportable 09/09/17 04:00 Malaria parasites Not Reportable 09/09/17 04:00 [place] Bodies Not Reportable 09/09/17 04:00 Hem Pathologist Commnt No 09/09/17 04:00 PT 28.4 Sec. (12.2-14.9) H 09/04/17 04:00 INR 2.47 (0.87-1.13) H 09/04/17 04:00 APTT 35.4 Sec. (24.2-36.6) 09/02/17 07:36 Fibrinogen 611 mg/dl (211-480) H 09/04/17 17:23 D-Dimer 976.43 ng/mlDDU (0-234) H 09/01/17 23:27 POC ABG pH 7.575 (7.35-7.45) H 09/09/17 04:34 POC ABG pCO2 42.1 (35-45) 09/09/17 04:34 POC ABG pO2 63 (80-105) L 09/09/17 04:34 POC ABG HCO3 39.0 09/09/17 04:34 POC ABG Total CO2 40 09/09/17 04:34 POC ABG O2 Sat 95 09/09/17 04:34 POC ABG Base Excess 17 09/09/17 04:34 FiO2 45 % 09/09/17 04:34 Sodium 150 mmol/L (137-145) H 09/09/17 04:00 Potassium 3.0 mmol/L (3.6-5.0) L 09/09/17 04:00 Chloride 107.7 mmol/L (98-107) H 09/09/17 04:00 Carbon Dioxide 35 mmol/L (22-30) H 09/09/17 04:00 Anion Gap 10 mmol/L 09/09/17 04:00 BUN 39 mg/dL (9-20) H 09/09/17 04:00 Creatinine 0.8 mg/dL (0.8-1.5) 09/09/17 04:00 Estimated GFR > 60 ml/min 09/09/17 04:00 BUN/Creatinine Ratio 49 % 09/09/17 04:00 Glucose 174 mg/dL (75-100) H 09/09/17 04:00 POC Glucose 190 (70-105) H 09/10/17 00:02 Lactic Acid 2.90 mmol/L (0.7-2.0) H* 09/06/17 08:03 Calcium 8.9 mg/dL (8.4-10.2) 09/09/17 04:00 Phosphorus 6.40 mg/dL (2.5-4.5) H 09/03/17 05:15 Magnesium 1.80 mg/dL (1.7-2.3) 09/03/17 05:15 Total Bilirubin 0.30 mg/dL (0.1-1.2) 09/07/17 04:13 AST 150 units/L (5-40) H 09/07/17 04:13 ALT 381 units/L (7-56) H 09/07/17 04:13 Alkaline Phosphatase 103 units/L (35-129) 09/07/17 04:13 Lactate Dehydrogenase 571 units/L (91-180) H 09/05/17 10:55 Troponin T < 0.010 ng/mL (0.00-0.029) 09/01/17 23:27 C-Reactive Protein 8.70 mg/dL (0.00-1.30) H 09/08/17 05:30 NT-Pro-B Natriuret Pep 315.2 pg/mL (0-900) 09/01/17 23:27 Total Protein 7.0 g/dL (6.3-8.2) 09/07/17 04:13 Albumin 1.3 g/dL (3.9-5) L 09/07/17 04:13 Albumin/Globulin Ratio 0.2 % 09/07/17 04:13 Lipase 12 units/L (13-60) L 09/04/17 17:23 Vancomycin Trough 15.3 ug/mL (5.0-20.0) 09/04/17 17:23 Lymph Enumerat CD4/CD8 0.10 (0.86-5.00) L 09/05/17 14:30 % CD3 Cells 75 % (57-85) 09/05/17 14:30 Absolute CD3 Count 1105 cells/uL (840-3060) 09/05/17 14:30 % CD4 Cells 7 % (30-61) L 09/05/17 14:30 Absolute CD4 Count 101 cells/uL (490-1740) L 09/05/17 14:30 % CD8 Cells 66 % (12-42) H 09/05/17 14:30 Absolute CD8 Count 986 cells/uL (180-1170) 09/05/17 14:30 % CD19 Cells 4 % (6-29) L 09/05/17 14:30 Absolute CD19 Count 60 cells/uL (110-660) L 09/05/17 14:30 RPR Nonreactive (Nonreactive) 09/07/17 04:13 Hepatitis A IgM Ab Non-reactive (NonReactive) 09/05/17 10:55 Hep Bs Antigen Reactive (Negative) 09/05/17 10:55 Hep Bs Antibody, Quant <5 mIU/mL (>=10) L 09/07/17 04:13 Hep B Core Total Ab Reactive (Nonreactive) H 09/07/17 04:13 Hep B Core IgM Ab Non-reactive (NonReactive) 09/05/17 10:55 Hepatitis Be Antibody Nonreactive 09/07/17 04:13 Hepatitis Be Antigen Reactive H 09/07/17 04:13 Hepatitis C Antibody Non-reactive (NonReactive) 09/05/17 10:55 HIV-1 RNA PCR copies/ml 1750 Copies/mL H 09/05/17 14:30 HIV-1 RNA (PCR) log 3.24 Log cps/mL H 09/05/17 14:30 HIV 1&2 Antibody Rapid Reactive (Non React) 09/02/17 19:34 HIV P24 Antigen Non react (Non React) 09/02/17 19:34 Urine Legionella Ag Not detected (Not Detected) 09/02/17 13:55 TB (QFT) Gold In Tube Negative (Negative) 09/05/17 14:30 TB Test (QFT) Nil 0.04 IU/mL 09/05/17 14:30 TB Test Mitogen - Nil 2.28 IU/mL 09/05/17 14:30 TB Test Antigen - Nil 0.00 IU/mL 09/05/17 14:30 Miscellaneous Test Flexitest 1 09/06/17 11:30
[2017-09-10] MEDS: LEVOPHED 8 MG in NACL 0.9% 250ML 242 ML IV SCH (02:35)
[2017-09-10 05:03] LABS: Hemoglobin 9.2 gm/dl (11.8-15.2); Mean Corpuscular HGB Conc 33 % (32-34); Mean Corpuscular Hemoglobin 28 pg (28-32); Mean Corpuscular Volume 84 fl (84-94); Platelet Count 145 K/mm3 (140-440); Red Blood Count 3.32 M/mm3 (3.65-5.03); Red Cell Distribution Width 15.3 % (13.2-15.2)
[2017-09-10 05:20] LABS: BUN/Creatinine Ratio 49; Blood Urea Nitrogen 34 mg/dL (9-20); Calcium 8.9 mg/dL (8.4-10.2); Hemolysis Index 0
[2017-09-10 05:57] LABS: Basophils % (Manual) 0 % (0.0-1.8); Eosinophils % (Manual) 0 % (0.0-4.3); Monocytes % (Manual) 0 % (0.0-7.3); Total Cells Counted 100
[2017-09-10 05:58] LABS: Anisocytosis 1+; Platelet Estimate Consistent w Auto
[2017-09-10] MEDS: BACTRIM DS PO SCH (06:16)
[2017-09-10] MEDS: DIFLUCAN 200 MG/100 ML BAG IV SCH (09:51)
[2017-09-10] MEDS: ZITHROMAX 500 MG in NACL 0.9% 250ML 250 ML IV SCH (09:54)
[2017-09-10] MEDS: PEPCID IV SCH ×2 (09:55→21:30)
[2017-09-10] MEDS: LASIX IV SCH (09:55)
[2017-09-10] MEDS: LOVENOX SUB-Q SCH (09:56)
--- NOTE | 2017-09-10 11:07 | Progress Note ---
Assessment and Plan Assessment and plan: 52-year-old male presents to the emergency department with complaint of shortness of breath and some midsternal right-sided chest discomfort with inspiration that started earlier this afternoon and radiates towards the back. The patient was just discharged from the [facility] a few days ago after spending some time therefore bilateral pneumonia. He is on Bactrim and just finished a course of antifungal medication for oral thrush. He denies any past medical history other than this pneumonia. He does not smoke or use illicit drugs. His physicians are through the [facility]. Patient was recently discharged from a 6 day hospital stay at the [facility]. He denies any leg swelling, nausea, vomiting or fever. * Septic shock due to underlying pneumonia * Pneumonia bacteria - Ramón neg rods, Gram Negative bacteremia, also concern for PJP * Acute hypoxemic respiratory failure intubated 09/01/17, on MV >96 hours * Hyperkalemia - corrected * Anemia of chronic disease * Hypernatremia * multiple liver masses suspicious for metastatic disease * Portal vein thrombosis? not clearly seen on US, will need dedicated study when clinically more stable * HIV- has not been compliant with HAART * hypokalemia Plan - Continuue pressors and abx, id input appreciated Continue on mechanical ventilation, FiO2 being weaned Aggresive Bronchodilator Tx, continue diuresis Emergency Nurse Following Pul congestion with airway disease per CXR of 09/06/17- Monitor CBC and electrolytes continue free water replacement replete electrolytes DVT GI prophylaxis with Lovenox and Pepcid Discussed with Critical care physician VTE prophylaxis?: Chemical, Mechanical The high probability of a clinically significant, sudden or life threatening deterioration of the [cv, renal, pulmonary] system(s) required my full and direct attention, intervention and personal management. The aggregate critical care time was [44] minutes. This time is in addition to time spent performing reported procedures but includes the following: [] Data Review and interpretation [] Patient assessment and monitoring of vital signs [] Documentation [] Medication orders and management History Interval history: remains intubated and sedated remains pressor dependent Hospitalist Physical - Physical exam Narrative exam: General appearance: Present: no acute distress, well-nourished, other (intubated ) - EENT Eyes: Present: PERRL ENT: clear oral mucosa - Neck Neck: Present: supple - Respiratory Respiratory effort: labored Respiratory: bilateral: rales - Cardiovascular Rhythm: regular Heart Sounds: Present: S1 & S2 - Extremities Extremities: no ischemia Peripheral Pulses: within normal limits - Abdominal General gastrointestinal: soft, non-distended - Integumentary Integumentary: Present: clear, warm, dry - Psychiatric Psychiatric: other (intubated/sedated) - Neurologic Neurologic: other (intubated/sedated) - Constitutional Vitals: Temp Pulse Resp BP Pulse Ox 98.6 F 65 22 103/57 97 09/10/17 08:00 09/10/17 09:00 09/10/17 09:00 09/10/17 09:00 09/10/17 09:00 General appearance: Present: no acute distress, well-nourished, other (intubated ) Results - Labs CBC & Chem 7: 09/10/17 04:44 09/10/17 04:50 Labs: Laboratory Last Values WBC 21.7 K/mm3 (4.5-11.0) H 09/10/17 04:44 RBC 3.32 M/mm3 (3.65-5.03) L 09/10/17 04:44 Hgb 9.2 gm/dl (11.8-15.2) L 09/10/17 04:44 Hct 28.0 % (35.5-45.6) L 09/10/17 04:44 MCV 84 fl (84-94) 09/10/17 04:44 MCH 28 pg (28-32) 09/10/17 04:44 MCHC 33 % (32-34) 09/10/17 04:44 RDW 15.3 % (13.2-15.2) H 09/10/17 04:44 Plt Count 145 K/mm3 (140-440) 09/10/17 04:44 Isabela % (Auto) 12.6 % (0.0-7.3) H 09/02/17 07:36 Eos % (Auto) 0.3 % (0.0-4.3) 09/02/17 07:36 Isabela # 0.4 K/mm3 (0.0-0.8) 09/02/17 07:36 Eos # 0.0 K/mm3 (0.0-0.4) 09/02/17 07:36 Baso # 0.0 K/mm3 (0.0-0.1) 09/02/17 07:36 Add Manual Diff Complete 09/10/17 04:44 Total Counted 100 09/10/17 04:44 Seg Neutrophils % Inspector Assembly 09/10/17 04:44 Seg Neuts % (Manual) 96.0 % (40.0-70.0) H 09/10/17 04:44 Band Neutrophils % 0 % 09/10/17 04:44 Lymphocytes % (Manual) 4.0 % (13.4-35.0) L 09/10/17 04:44 Reactive Lymphs % (Man) 0 % 09/10/17 04:44 Monocytes % (Manual) 0 % (0.0-7.3) 09/10/17 04:44 Eosinophils % (Manual) 0 % (0.0-4.3) 09/10/17 04:44 Basophils % (Manual) 0 % (0.0-1.8) 09/10/17 04:44 Metamyelocytes % 0 % 09/10/17 04:44 Myelocytes % 0 % 09/10/17 04:44 Promyelocytes % 0 % 09/10/17 04:44 Blast Cells % 0 % 09/10/17 04:44 Nucleated RBC % Not Reportable 09/10/17 04:44 Seg Neutrophils # 2.1 K/mm3 (1.8-7.7) 09/02/17 07:36 Seg Neutrophils # Man 20.8 K/mm3 (1.8-7.7) H 09/10/17 04:44 Band Neutrophils # 0.0 K/mm3 09/10/17 04:44 Abs Lymphs (Manual) 1470 cells/uL (850-3900) 09/05/17 14:30 Lymphocytes # (Manual) 0.9 K/mm3 (1.2-5.4) L 09/10/17 04:44 Abs React Lymphs (Man) 0.0 K/mm3 09/10/17 04:44 Monocytes # (Manual) 0.0 K/mm3 (0.0-0.8) 09/10/17 04:44 Eosinophils # (Manual) 0.0 K/mm3 (0.0-0.4) 09/10/17 04:44 Basophils # (Manual) 0.0 K/mm3 (0.0-0.1) 09/10/17 04:44 Metamyelocytes # 0.0 K/mm3 09/10/17 04:44 Myelocytes # 0.0 K/mm3 09/10/17 04:44 Promyelocytes # 0.0 K/mm3 09/10/17 04:44 Blast Cells # 0.0 K/mm3 09/10/17 04:44 WBC Morphology Not Reportable 09/10/17 04:44 Hypersegmented Neuts Not Reportable 09/10/17 04:44 Hyposegmented Neuts Not Reportable 09/10/17 04:44 Hypogranular Neuts Not Reportable 09/10/17 04:44 Smudge Cells Not Reportable 09/10/17 04:44 Toxic Granulation Not Reportable 09/10/17 04:44 Toxic Vacuolation Not Reportable 09/10/17 04:44 Dohle Bodies Not Reportable 09/10/17 04:44 Pelger-Huet Anomaly Not Reportable 09/10/17 04:44 Efren Rods Not Reportable 09/10/17 04:44 Platelet Estimate Consistent w auto 09/10/17 04:44 Clumped Platelets Not Reportable 09/10/17 04:44 Plt Clumps, EDTA Not Reportable 09/10/17 04:44 Large Platelets Not Reportable 09/10/17 04:44 Giant Platelets Not Reportable 09/10/17 04:44 Platelet Satelliting Not Reportable 09/10/17 04:44 Plt Morphology Comment Not Reportable 09/10/17 04:44 RBC Morphology Not Reportable 09/10/17 04:44 Dimorphic RBCs Not Reportable 09/10/17 04:44 Polychromasia Not Reportable 09/10/17 04:44 Hypochromasia Not Reportable 09/10/17 04:44 Poikilocytosis Not Reportable 09/10/17 04:44 Anisocytosis 1+ 09/10/17 04:44 Microcytosis Not Reportable 09/10/17 04:44 Macrocytosis Not Reportable 09/10/17 04:44 Spherocytes Not Reportable 09/10/17 04:44 Pappenheimer Bodies Not Reportable 09/10/17 04:44 Sickle Cells Not Reportable 09/10/17 04:44 Target Cells Not Reportable 09/10/17 04:44 Tear Drop Cells Not Reportable 09/10/17 04:44 Ovalocytes Not Reportable 09/10/17 04:44 Helmet Cells Not Reportable 09/10/17 04:44 [place] Bodies Not Reportable 09/10/17 04:44 [place] Rings Not Reportable 09/10/17 04:44 [place] Cells Not Reportable 09/10/17 04:44 Bite Cells Not Reportable 09/10/17 04:44 Crenated Cell Not Reportable 09/10/17 04:44 Elliptocytes Not Reportable 09/10/17 04:44 Acanthocytes (Spur) Not Reportable 09/10/17 04:44 Rouleaux Not Reportable 09/10/17 04:44 Hemoglobin C Crystals Not Reportable 09/10/17 04:44 Schistocytes Not Reportable 09/10/17 04:44 Malaria parasites Not Reportable 09/10/17 04:44 Scott Bodies Not Reportable 09/10/17 04:44 Hem Pathologist Commnt No 09/10/17 04:44 PT 28.4 Sec. (12.2-14.9) H 09/04/17 04:00 INR 2.47 (0.87-1.13) H 09/04/17 04:00 APTT 35.4 Sec. (24.2-36.6) 09/02/17 07:36 Fibrinogen 611 mg/dl (211-480) H 09/04/17 17:23 D-Dimer 976.43 ng/mlDDU (0-234) H 09/01/17 23:27 POC ABG pH 7.529 (7.35-7.45) H 09/10/17 03:46 POC ABG pCO2 45.6 (35-45) H 09/10/17 03:46 POC ABG pO2 69 (80-105) L 09/10/17 03:46 POC ABG HCO3 38.0 09/10/17 03:46 POC ABG Total CO2 39 09/10/17 03:46 POC ABG O2 Sat 95 09/10/17 03:46 POC ABG Base Excess 15 09/10/17 03:46 FiO2 40 % 09/10/17 03:46 Sodium 149 mmol/L (137-145) H 09/10/17 04:50 Potassium 4.0 mmol/L (3.6-5.0) D 09/10/17 04:50 Chloride 109.8 mmol/L (98-107) H 09/10/17 04:50 Carbon Dioxide 36 mmol/L (22-30) H 09/10/17 04:50 Anion Gap 7 mmol/L 09/10/17 04:50 BUN 34 mg/dL (9-20) H 09/10/17 04:50 Creatinine 0.7 mg/dL (0.8-1.5) L 09/10/17 04:50 Estimated GFR > 60 ml/min 09/10/17 04:50 BUN/Creatinine Ratio 49 % 09/10/17 04:50 Glucose 139 mg/dL (75-100) H 09/10/17 04:50 POC Glucose 154 (70-105) H 09/10/17 06:19 Lactic Acid 2.90 mmol/L (0.7-2.0) H* 09/06/17 08:03 Calcium 8.9 mg/dL (8.4-10.2) 09/10/17 04:50 Phosphorus 2.70 mg/dL (2.5-4.5) 09/10/17 04:50 Magnesium 1.80 mg/dL (1.7-2.3) 09/10/17 04:50 Total Bilirubin 0.30 mg/dL (0.1-1.2) 09/07/17 04:13 AST 150 units/L (5-40) H 09/07/17 04:13 ALT 381 units/L (7-56) H 09/07/17 04:13 Alkaline Phosphatase 103 units/L (35-129) 09/07/17 04:13 Lactate Dehydrogenase 571 units/L (91-180) H 09/05/17 10:55 Troponin T < 0.010 ng/mL (0.00-0.029) 09/01/17 23:27 C-Reactive Protein 8.70 mg/dL (0.00-1.30) H 09/08/17 05:30 NT-Pro-B Natriuret Pep 315.2 pg/mL (0-900) 09/01/17 23:27 Total Protein 7.0 g/dL (6.3-8.2) 09/07/17 04:13 Albumin 1.3 g/dL (3.9-5) L 09/07/17 04:13 Albumin/Globulin Ratio 0.2 % 09/07/17 04:13 Lipase 12 units/L (13-60) L 09/04/17 17:23 Vancomycin Trough 15.3 ug/mL (5.0-20.0) 09/04/17 17:23 Lymph Enumerat CD4/CD8 0.10 (0.86-5.00) L 09/05/17 14:30 % CD3 Cells 75 % (57-85) 09/05/17 14:30 Absolute CD3 Count 1105 cells/uL (840-3060) 09/05/17 14:30 % CD4 Cells 7 % (30-61) L 09/05/17 14:30 Absolute CD4 Count 101 cells/uL (490-1740) L 09/05/17 14:30 % CD8 Cells 66 % (12-42) H 09/05/17 14:30 Absolute CD8 Count 986 cells/uL (180-1170) 09/05/17 14:30 % CD19 Cells 4 % (6-29) L 09/05/17 14:30 Absolute CD19 Count 60 cells/uL (110-660) L 09/05/17 14:30 RPR Nonreactive (Nonreactive) 09/07/17 04:13 Hepatitis A IgM Ab Non-reactive (NonReactive) 09/05/17 10:55 Hep Bs Antigen Reactive (Negative) 09/05/17 10:55 Hep Bs Antibody, Quant <5 mIU/mL (>=10) L 09/07/17 04:13 Hep B Core Total Ab Reactive (Nonreactive) H 09/07/17 04:13 Hep B Core IgM Ab Non-reactive (NonReactive) 09/05/17 10:55 Hepatitis Be Antibody Nonreactive 09/07/17 04:13 Hepatitis Be Antigen Reactive H 09/07/17 04:13 Hepatitis C Antibody Non-reactive (NonReactive) 09/05/17 10:55 HIV-1 RNA PCR copies/ml 1750 Copies/mL H 09/05/17 14:30 HIV-1 RNA (PCR) log 3.24 Log cps/mL H 09/05/17 14:30 HIV 1&2 Antibody Rapid Reactive (Non React) 09/02/17 19:34 HIV P24 Antigen Non react (Non React) 09/02/17 19:34 Urine Legionella Ag Not detected (Not Detected) 09/02/17 13:55 TB (QFT) Gold In Tube Negative (Negative) 09/05/17 14:30 TB Test (QFT) Nil 0.04 IU/mL 09/05/17 14:30 TB Test Mitogen - Nil 2.28 IU/mL 09/05/17 14:30 TB Test Antigen - Nil 0.00 IU/mL 09/05/17 14:30 Miscellaneous Test Flexitest 1 09/06/17 11:30
--- NOTE | 2017-09-10 12:49 | Progress Note ---
Assessment and Plan Assessment: 1) Severe Sepsis with septic shock: still in levophed at 5, leukocytosis is up. Etiology most likely E coli septicemia and pneumonia. -CRP 22.30. -Lactic acid better as of 09/06. -On levophed. -Afebrile. -Leukocytosis is up. On solumedrol. 2) E. coli septicemia: unknown source ? Pneumonia ? UTI (UCx negative) ? GI -Blood cultures 09/01 positive 4 of 4 bottles. E coli sens to cefepime/zosyn -Repeat Blood cultures 09/04 negative. -TTE 09/02 no vegetations. 3) Bilateral pneumonia: recently treated at [facility]. -Tracheal asp with normal fiordaliza. - CT chest 09/02 with extensive bilateral pulmonary opacities due to edema vs PNA. Also component of atelectasis. Bilateral pleural effusions. - Legionella and Strep pneumo ag in urine negative - On bactrim and steroids since 09/05. -PJP DFA negative 4) Acute respiratory failure. Intubated. From pneumonia. 5) HIV/AIDS, poorly compliant with HAART for past > 1 year per [facility]; last CD4 per [facility] was 133. [id number] on 08/26/17 -RPR neg 6) Abnormal CT A/P with numerous liver lesions suspicious for metastatic liver disease, moderate ascites, possible partial vein thrombosis. 7) Encephalopathy. 8) Transaminitis. Could be due to shock liver. Improved. ?hep B. -Hep B Surface ag positive, HBVe antigen positive, HBV core total ab positive -Hep C negative 9) Acute Thrombocytopenia. Improved. Plan: -repeat CT chest, abd pelvis -stop meropenem (D9) -start cefepime day 9 of 14 -continue fluconazole (D6), -stop bactrim treatement dose and start bactrim DS 1 tab qday for prophylaxis -continue azithromycin 1200 mg qweek for pprophylaxis -Will f/u genotype, HLA [id number], quantiferon, hep B viral load. -Will f/u fungal blood cultures, AFB blood cultures Eduarda Rolon MD Infectious Diseases Specialist [facility] ([facility] M [phone] O [phone] Subjective Date of service: 09/10/17 Principal diagnosis: Septic shock, acute hypoxemic respiratory failure, [place] Interval history: Remains intubated fio2 35%, p8. Afebrile. Still on levophed at 5. Microbiology: Blood cultures: 09/01 E coli x 4 bottles 09/04 Neg 09/06 ngtd Fungal blood culture: 09/06 pending Urine cultures: 09/02 Neg Respiratory cultures: TA 09/02 normal fiordaliza Crypto ag in serum negative Current Antimicrobials: Meropenem 09/02- Fluconazole 09/03- Vanco 09/02- Bactrim 09/05- Azithromycin 09/06- Solumedrol 09/05- Previous Antimicrobials: Zosyn 09/02 Azithro 09/02 Objective - Exam Narrative Exam: General appearance: sedated on the vent Eyes: anicteric sclerae, moist conjunctivae HENT: Atraumatic; oropharynx + ETT, + NGT Neck: Trachea midline; supple, no thyromegaly or lymphadenopathy Lungs: lila rhonchi CV: RRR, no murmurs Abdomen: slightly tense +BS Extremities: lila arm edema Skin: Normal temperature, turgor and texture; no rash, ulcers or subcutaneous nodules Psych: sedated. Neuro: sedated Lines: right IJ TLC / Quach clear urine - Constitutional Vitals: Vital Signs Temp Pulse Resp BP Pulse Ox 97.7 F 58 L 22 109/64 97 09/10/17 12:00 09/10/17 12:00 09/10/17 12:00 09/10/17 12:00 09/10/17 12:00 Temperature -Last 24 Hours Temperature 97.7 F Temperature 98.6 F Temperature 98.9 F Temperature 99.0 F Temperature 98.8 F Temperature 98.9 F - Labs CBC & Chem 7: 09/10/17 04:44 09/10/17 04:50 Labs: Abnormal lab results 09/09/17 09/10/17 09/10/17 Range/Units 17:31 00:02 03:46 WBC (4.5-11.0) K/mm3 RBC (3.65-5.03) M/mm3 Hgb (11.8-15.2) gm/dl Hct (35.5-45.6) % RDW (13.2-15.2) % Seg Neuts % (Manual) (40.0-70.0) % Lymphocytes % (Manual) (13.4-35.0) % Seg Neutrophils # Man (1.8-7.7) K/mm3 Lymphocytes # (Manual) (1.2-5.4) K/mm3 POC ABG pH 7.529 H (7.35-7.45) POC ABG pCO2 45.6 H (35-45) POC ABG pO2 69 L (80-105) Sodium (137-145) mmol/L Chloride (98-107) mmol/L Carbon Dioxide (22-30) mmol/L BUN (9-20) mg/dL Creatinine (0.8-1.5) mg/dL Glucose (75-100) mg/dL POC Glucose 180 H 190 H (70-105) 09/10/17 09/10/17 09/10/17 Range/Units 04:44 04:50 06:19 WBC 21.7 H (4.5-11.0) K/mm3 RBC 3.32 L (3.65-5.03) M/mm3 Hgb 9.2 L (11.8-15.2) gm/dl Hct 28.0 L (35.5-45.6) % RDW 15.3 H (13.2-15.2) % Seg Neuts % (Manual) 96.0 H (40.0-70.0) % Lymphocytes % (Manual) 4.0 L (13.4-35.0) % Seg Neutrophils # Man 20.8 H (1.8-7.7) K/mm3 Lymphocytes # (Manual) 0.9 L (1.2-5.4) K/mm3 POC ABG pH (7.35-7.45) POC ABG pCO2 (35-45) POC ABG pO2 (80-105) Sodium 149 H (137-145) mmol/L Chloride 109.8 H (98-107) mmol/L Carbon Dioxide 36 H (22-30) mmol/L BUN 34 H (9-20) mg/dL Creatinine 0.7 L (0.8-1.5) mg/dL Glucose 139 H (75-100) mg/dL POC Glucose 154 H (70-105) 09/10/17 Range/Units 11:58 WBC (4.5-11.0) K/mm3 RBC (3.65-5.03) M/mm3 Hgb (11.8-15.2) gm/dl Hct (35.5-45.6) % RDW (13.2-15.2) % Seg Neuts % (Manual) (40.0-70.0) % Lymphocytes % (Manual) (13.4-35.0) % Seg Neutrophils # Man (1.8-7.7) K/mm3 Lymphocytes # (Manual) (1.2-5.4) K/mm3 POC ABG pH (7.35-7.45) POC ABG pCO2 (35-45) POC ABG pO2 (80-105) Sodium (137-145) mmol/L Chloride (98-107) mmol/L Carbon Dioxide (22-30) mmol/L BUN (9-20) mg/dL Creatinine (0.8-1.5) mg/dL Glucose (75-100) mg/dL POC Glucose 204 H (70-105)
[2017-09-10] MEDS: MAXIPIME 2 GM in NACL 0.9% 20 ML IV SCH ×2 (14:07→21:35)
[2017-09-10] MEDS: D5W 1,000 ML IV SCH (16:32)
[2017-09-10] MEDS ORDERED: MAGNESIUM SULFATE 2GM/50ML 2 GM/50 ML BAG IV ONE (16:48)
--- NOTE | 2017-09-10 16:51 | Progress Note ---
Assessment and Plan Imp: 1. E.coli bacteremia of ? source 2. Bilateral pneumonia 3. Pleural effusions, more likely volume-related but could be due to #2 4. Acute respiratory failure, hypoxia 5. Severe sepsis with septic shock 6. Lactic acidosis 7. HIV/AIDS, poorly compliant with HAART for past > 1 year per [facility]; last CD4 per [facility] was 133 8. Dilated CMP 9. Hypernatremia Rec: 1. ABX per ID; E.coli is sens to carbapenems 2. Free water per NG 300mL [id number]; cont. gentle D5W 3. Wean pressors to keep goal MAP > 65 4. Trach aspirate is negative for PCP; on Bactrim/steroids empirically -> tapered the Solumedrol and would try to stop soon 5. Continue Lasix IV daily for now; replete mag to keep > 2.[address] a/p when more stable re: liver lesions 7. GI and DVT PPx; TFs 8. Reduce RR to 16 (2nd request) to reduce minute ventilation; try to wean PEEP to +5 now to keep sats 88% or above; start PSV once down to +5 of PEEP and 50% or less FiO2 9. Prognosis remains guarded, although he has improved No family present today; Complex patient Subjective Date of service: 09/10/17 Principal diagnosis: Septic shock, acute hypoxemic respiratory failure, [place] Interval history: No events. Sedated but arousable and is appropriate. On FiO2 of 40% and PEEP of 8. On Levophed 5 mcg. Off Vasopressin. Tolerating Lasix. Active Medications Acetaminophen (Tylenol) 650 mg ND Q4H PRN PRN Reason: Pain, Mild (1-3) Last Admin: 09/02/17 22:03 Dose: 650 mg Acetaminophen (Tylenol) 650 mg FEEDTUBE Q6H PRN PRN Reason: Pain, Mild (1-3) Last Admin: 09/05/17 13:54 Dose: 650 mg Al Hydrox/Mg Hydrox/Simethicone (Alum-Mag Hydrox-Simeth [phone]/5ml) 30 ml PO Q4H PRN PRN Reason: Indigestion Albuterol (Proventil) 2.5 mg IH Q3HRT PRN PRN Reason: Shortness Of Breath Albuterol/Ipratropium (Duoneb *Not For Prn Use*) 1 ampul IH Q6HRT [facility] Last Admin: 09/10/17 12:59 Dose: 1 ampul Lipase/Protease/Amylase (Lj Ny 10,500 Unit) 1 each FEEDTUBE PRN PRN PRN Reason: For Clogged Feeding Tube Azithromycin (Zithromax) 1,200 mg PO QWEEK STEPHANIE Bisacodyl (Dulcolax) 10 mg ND QDAY PRN PRN Reason: constipation unrelieved by MOM Dextrose (D50w (25gm) Syringe) 50 ml IV PRN PRN PRN Reason: Hypoglycemia Last Admin: 09/02/17 23:42 Dose: 50 ml Enoxaparin Sodium (Lovenox) 40 mg SUB-Q QDAY [facility] Last Admin: 09/10/17 09:56 Dose: 40 mg Famotidine (Pepcid) 20 mg IV BID [facility] Last Admin: 09/10/17 09:55 Dose: 20 mg Furosemide (Lasix) 40 mg IV QAM [facility] Last Admin: 09/10/17 09:55 Dose: 40 mg Hydrophilic Ointment (Vaseline Lip Therapy) 1 applic TP Q2HR PRN PRN Reason: Dry Lips Last Admin: 09/02/17 10:15 Dose: 1 applic Fentanyl Citrate (Fentanyl Drip Premix) 2,000 mcg in 100 mls @ 2.903 mls/hr IV TITR STEPHANIE; 1 MCG/KG/HR PRN Reason: Protocol Last Admin: 09/10/17 14:00 Dose: 2 mcg/kg/hr, 5.806 mls/hr Vasopressin 20 unit/ Sodium (Chloride) 101 mls @ 9.09 mls/hr IV TITR STEPHANIE; 0.03 UNITS/MIN PRN Reason: Protocol Last Titration: 09/06/17 11:30 Dose: 0 units/min, 0 mls/hr Fluconazole (Diflucan) 200 mg in 100 mls @ 100 mls/hr IV Q24HR STEPHANIE PRN Reason: Protocol Last Admin: 09/10/17 09:51 Dose: 100 mls/hr Norepinephrine 8 mg/ Sodium (Chloride) 250 mls @ 3.75 mls/hr IV TITR STEPHANIE; 2 MCG /MIN PRN Reason: Protocol Last Titration: 09/10/17 16:37 Dose: 4 mcg/min, 7.5 mls/hr Phenylephrine HCl 100 mg/ (Sodium Chloride) 100 mls @ 3 mls/hr IV TITR STEPHANIE; 50 MCG/MIN PRN Reason: Protocol Last Titration: 09/05/17 18:00 Dose: 0 mcg/min, 0 mls/hr Midazolam HCl 100 mg/ Sodium (Chloride) 100 mls @ 2 mls/hr IV TITR STEPHANIE; 2 MG/HR PRN Reason: Protocol Last Titration: 09/08/17 20:15 Dose: 2 mg/hr, 2 mls/hr Dextrose (D5w) 1,000 mls @ 50 mls/hr IV DIRECT STEPHANIE Last Admin: 09/10/17 16:32 Dose: 50 mls/hr Cefepime HCl 2 gm/ Sodium (Chloride) 20 mls @ 20 mls/10 min IV Q8HR STEPHANIE PRN Reason: Protocol Last Admin: 09/10/17 14:07 Dose: 20 mls/10 min Magnesium Sulfate (Magnesium Sulfate 2gm/50ml) 2 gm in 50 mls @ 25 mls/hr IV ONCE ONE Stop: 09/10/17 18:47 Insulin Aspart (Novolog) 0 units SUB-Q Q6HR STEPHANIE PRN Reason: Protocol Last Admin: 09/10/17 12:43 Dose: 4 units Methylprednisolone Sodium Succinate (Solu-Medrol) 20 mg IV Q8H [facility] Last Admin: 09/10/17 08:38 Dose: 20 mg Multi-Ingred Cream/Lotion/Oil/Oint (Artificial Tears Ophth Oint) 1 applic OU Q4HR PRN PRN Reason: Dry Eye(s) Naloxone HCl (Narcan 0.4 Mg/1 Ml) 0.1 mg IV Q2MIN PRN PRN Reason: Res Rate </= 8 or 02 SAT < 92% Simple Syrup (Simple Syrup) 15 ml FEEDTUBE PRN PRN PRN Reason: Hypoglycemia Simple Syrup (Simple Syrup) 30 ml FEEDTUBE PRN PRN PRN Reason: Hypoglycemia Sodium Bicarbonate (Sodium Bicarbonate) 325 mg FEEDTUBE PRN PRN PRN Reason: For Clogged Feeding Tube Trimethoprim/Sulfamethoxazole (Bactrim Ds) 1 each PO QDAY [facility] Objective Vital Signs - 12hr 09/10/17 09/10/17 09/10/17 05:00 06:00 07:00 Temperature Pulse Rate 77 90 87 Pulse Rate [ Anterior Bilateral Throughout] Pulse Rate [ From Monitor] Respiratory 24 24 25 H Rate Respiratory Rate [Anterior Bilateral Throughout] Blood Pressure 111/72 131/71 126/73 O2 Sat by Pulse 95 96 97 Oximetry 09/10/17 09/10/17 09/10/17 07:50 08:00 08:02 Temperature 98.6 F Pulse Rate 69 Pulse Rate [ 77 Anterior Bilateral Throughout] Pulse Rate [ 78 From Monitor] Respiratory 25 H 22 Rate Respiratory 23 Rate [Anterior Bilateral Throughout] Blood Pressure 108/59 O2 Sat by Pulse 95 96 Oximetry 09/10/17 09/10/17 09/10/17 08:12 09:00 10:00 Temperature Pulse Rate 65 68 Pulse Rate [ 61 Anterior Bilateral Throughout] Pulse Rate [ From Monitor] Respiratory 22 20 Rate Respiratory 20 Rate [Anterior Bilateral Throughout] Blood Pressure 103/57 108/65 O2 Sat by Pulse 97 99 Oximetry 09/10/17 09/10/17 09/10/17 11:00 11:48 12:00 Temperature 97.7 F Pulse Rate 59 L 59 L 58 L Pulse Rate [ Anterior Bilateral Throughout] Pulse Rate [ From Monitor] Respiratory 21 22 Rate Respiratory Rate [Anterior Bilateral Throughout] Blood Pressure 105/59 111/63 109/64 O2 Sat by Pulse 98 98 97 Oximetry 09/10/17 09/10/17 09/10/17 12:30 13:00 13:02 Temperature Pulse Rate 71 Pulse Rate [ 75 Anterior Bilateral Throughout] Pulse Rate [ 62 From Monitor] Respiratory 22 22 Rate Respiratory 20 Rate [Anterior Bilateral Throughout] Blood Pressure 110/67 O2 Sat by Pulse 98 100 Oximetry 09/10/17 09/10/17 09/10/17 13:12 14:00 15:00 Temperature Pulse Rate 64 83 Pulse Rate [ 69 Anterior Bilateral Throughout] Pulse Rate [ From Monitor] Respiratory 22 20 Rate Respiratory 20 Rate [Anterior Bilateral Throughout] Blood Pressure 118/71 121/69 O2 Sat by Pulse 99 97 Oximetry 09/10/17 09/10/17 15:21 16:00 Temperature Pulse Rate 88 Pulse Rate [ Anterior Bilateral Throughout] Pulse Rate [ 70 From Monitor] Respiratory 17 24 Rate Respiratory Rate [Anterior Bilateral Throughout] Blood Pressure 121/70 O2 Sat by Pulse 97 97 Oximetry Constitutional: other (critically ill on vent, sedated) Eyes: non-icteric ENT: other (orally intubated and sedated) Neck: supple Effort: normal Ascultation: Bilateral: other (coarse BS bilaterally) Percussion: Bilateral: not dull Cardiovascular: regular rate and rhythm (sinus tach) Gastrointestinal: hypoactive bowel sounds, soft, non-tender, non-distended Extremities: no cyanosis, no edema, pink and warm Neurologic: normal mental status, non-focal exam, pupils equal and round, CN II- XII normal Psychiatric: other (unable to assess) CBC and BMP: 09/10/17 04:44 09/10/17 04:50 ABG, PT/INR, D-dimer: ABG POC ABG pH 7.529 (7.35-7.45) H 09/10/17 03:46 POC ABG pCO2 45.6 (35-45) H 09/10/17 03:46 POC ABG pO2 69 (80-105) L 09/10/17 03:46 POC ABG HCO3 38.0 09/10/17 03:46 POC ABG Total CO2 39 09/10/17 03:46 POC ABG O2 Sat 95 09/10/17 03:46 PT/INR, D-dimer PT 28.4 Sec. (12.2-14.9) H 09/04/17 04:00 INR 2.47 (0.87-1.13) H 09/04/17 04:00 D-Dimer 976.43 ng/mlDDU (0-234) H 09/01/17 23:27 Abnormal lab findings: Abnormal Labs 09/01/17 09/01/17 09/01/17 19:00 19:00 23:27 WBC RBC Hgb 10.9 L Hct 32.3 L MCV 83 L MCH RDW 15.6 H Plt Count [place] % (Auto) Seg Neutrophils % Seg Neuts % (Manual) Lymphocytes % (Manual) Nucleated RBC % Seg Neutrophils # Man Lymphocytes # (Manual) PT INR Fibrinogen D-Dimer 976.43 H POC ABG pH POC ABG pCO2 POC ABG pO2 Sodium 133 L Potassium Chloride 96.4 L Carbon Dioxide BUN Creatinine Glucose 113 H POC Glucose Lactic Acid Calcium Phosphorus Magnesium AST ALT Lactate Dehydrogenase C-Reactive Protein Total Protein Albumin Lipase Lymph Enumerat CD4/CD8 % CD4 Cells Absolute CD4 Count % CD8 Cells % CD19 Cells Absolute CD19 Count Hep Bs Antibody, Quant Hep B Core Total Ab Hepatitis Be Antigen HIV-1 RNA PCR copies/ml HIV-1 RNA (PCR) log 09/01/17 09/02/17 09/02/17 23:27 01:25 07:36 WBC 2.2 L RBC 3.41 L Hgb 9.6 L Hct 28.9 L MCV MCH RDW 16.0 H Plt Count [place] % (Auto) 12.6 H Seg Neutrophils % 70.4 H Seg Neuts % (Manual) Lymphocytes % (Manual) Nucleated RBC % Seg Neutrophils # Man 1.1 L Lymphocytes # (Manual) 0.6 L PT INR Fibrinogen D-Dimer POC ABG pH POC ABG pCO2 POC ABG pO2 Sodium Potassium Chloride Carbon Dioxide BUN Creatinine Glucose POC Glucose Lactic Acid 3.30 H* 4.10 H* Calcium Phosphorus Magnesium AST ALT Lactate Dehydrogenase C-Reactive Protein Total Protein Albumin Lipase Lymph Enumerat CD4/CD8 % CD4 Cells Absolute CD4 Count % CD8 Cells % CD19 Cells Absolute CD19 Count Hep Bs Antibody, Quant Hep B Core Total Ab Hepatitis Be Antigen HIV-1 RNA PCR copies/ml HIV-1 RNA (PCR) log 09/02/17 09/02/17 09/02/17 07:36 07:36 07:36 WBC RBC Hgb Hct MCV MCH RDW Plt Count [place] % (Auto) Seg Neutrophils % Seg Neuts % (Manual) Lymphocytes % (Manual) Nucleated RBC % Seg Neutrophils # Man Lymphocytes # (Manual) PT 18.6 H INR 1.46 H Fibrinogen D-Dimer POC ABG pH POC ABG pCO2 POC ABG pO2 Sodium 136 L Potassium Chloride Carbon Dioxide BUN Creatinine Glucose POC Glucose Lactic Acid 3.80 H* Calcium Phosphorus Magnesium 1.20 L AST ALT Lactate Dehydrogenase C-Reactive Protein Total Protein 9.1 H Albumin 2.0 L Lipase Lymph Enumerat CD4/CD8 % CD4 Cells Absolute CD4 Count % CD8 Cells % CD19 Cells Absolute CD19 Count Hep Bs Antibody, Quant Hep B Core Total Ab Hepatitis Be Antigen HIV-1 RNA PCR copies/ml HIV-1 RNA (PCR) log 09/02/17 09/02/17 09/02/17 08:49 09:40 11:33 WBC RBC Hgb Hct MCV MCH RDW Plt Count [place] % (Auto) Seg Neutrophils % Seg Neuts % (Manual) Lymphocytes % (Manual) Nucleated RBC % Seg Neutrophils # Man Lymphocytes # (Manual) PT INR Fibrinogen D-Dimer POC ABG pH 7.313 L POC ABG pCO2 POC ABG pO2 116 H Sodium Potassium Chloride Carbon Dioxide BUN Creatinine Glucose POC Glucose Lactic Acid 3.60 H* 5.20 H* Calcium Phosphorus Magnesium AST ALT Lactate Dehydrogenase C-Reactive Protein Total Protein Albumin Lipase Lymph Enumerat CD4/CD8 % CD4 Cells Absolute CD4 Count % CD8 Cells % CD19 Cells Absolute CD19 Count Hep Bs Antibody, Quant Hep B Core Total Ab Hepatitis Be Antigen HIV-1 RNA PCR copies/ml HIV-1 RNA (PCR) log 09/02/17 09/02/17 09/02/17 19:34 23:37 23:40 WBC RBC Hgb Hct MCV MCH RDW Plt Count [place] % (Auto) Seg Neutrophils % Seg Neuts % (Manual) Lymphocytes % (Manual) Nucleated RBC % Seg Neutrophils # Man Lymphocytes # (Manual) PT INR Fibrinogen D-Dimer POC ABG pH POC ABG pCO2 POC ABG pO2 Sodium Potassium Chloride Carbon Dioxide BUN Creatinine Glucose 59 L POC Glucose 47 L Lactic Acid Calcium Phosphorus Magnesium AST ALT Lactate Dehydrogenase C-Reactive Protein 22.30 H Total Protein Albumin Lipase Lymph Enumerat CD4/CD8 % CD4 Cells Absolute CD4 Count % CD8 Cells % CD19 Cells Absolute CD19 Count Hep Bs Antibody, Quant Hep B Core Total Ab Hepatitis Be Antigen HIV-1 RNA PCR copies/ml HIV-1 RNA (PCR) log 09/03/17 09/03/17 09/03/17 00:06 05:15 05:15 WBC RBC 3.59 L Hgb 10.1 L Hct 31.5 L MCV MCH RDW 18.0 H Plt Count [place] % (Auto) Seg Neutrophils % Seg Neuts % (Manual) Lymphocytes % (Manual) 1.0 L Nucleated RBC % 1.0 H Seg Neutrophils # Man Lymphocytes # (Manual) 0.1 L PT INR Fibrinogen D-Dimer POC ABG pH POC ABG pCO2 POC ABG pO2 Sodium Potassium Chloride Carbon Dioxide BUN Creatinine Glucose POC Glucose 144 H Lactic Acid 9.10 H* Calcium Phosphorus Magnesium AST ALT Lactate Dehydrogenase C-Reactive Protein Total Protein Albumin Lipase Lymph Enumerat CD4/CD8 % CD4 Cells Absolute CD4 Count % CD8 Cells % CD19 Cells Absolute CD19 Count Hep Bs Antibody, Quant Hep B Core Total Ab Hepatitis Be Antigen HIV-1 RNA PCR copies/ml HIV-1 RNA (PCR) log 09/03/17 09/03/17 09/03/17 05:15 05:55 07:40 WBC RBC Hgb Hct MCV MCH RDW Plt Count [place] % (Auto) Seg Neutrophils % Seg Neuts % (Manual) Lymphocytes % (Manual) Nucleated RBC % Seg Neutrophils # Man Lymphocytes # (Manual) PT INR Fibrinogen D-Dimer POC ABG pH 6.999 L POC ABG pCO2 POC ABG pO2 64 L Sodium Potassium 5.6 H D Chloride 108.4 H Carbon Dioxide 11 L D BUN 30 H Creatinine Glucose 115 H POC Glucose Lactic Acid 9.20 H* Calcium 7.3 L D Phosphorus 6.40 H Magnesium AST 88 H ALT Lactate Dehydrogenase C-Reactive Protein Total Protein Albumin 1.7 L Lipase Lymph Enumerat CD4/CD8 % CD4 Cells Absolute CD4 Count % CD8 Cells % CD19 Cells Absolute CD19 Count Hep Bs Antibody, Quant Hep B Core Total Ab Hepatitis Be Antigen HIV-1 RNA PCR copies/ml HIV-1 RNA (PCR) log 09/03/17 09/03/17 09/03/17 09:55 12:03 13:17 WBC RBC Hgb Hct MCV MCH RDW Plt Count [place] % (Auto) Seg Neutrophils % Seg Neuts % (Manual) Lymphocytes % (Manual) Nucleated RBC % Seg Neutrophils # Man Lymphocytes # (Manual) PT INR Fibrinogen D-Dimer POC ABG pH POC ABG pCO2 POC ABG pO2 Sodium Potassium Chloride Carbon Dioxide BUN Creatinine Glucose POC Glucose 155 H Lactic Acid 9.50 H* 9.90 H* Calcium Phosphorus Magnesium AST ALT Lactate Dehydrogenase C-Reactive Protein Total Protein Albumin Lipase Lymph Enumerat CD4/CD8 % CD4 Cells Absolute CD4 Count % CD8 Cells % CD19 Cells Absolute CD19 Count Hep Bs Antibody, Quant Hep B Core Total Ab Hepatitis Be Antigen HIV-1 RNA PCR copies/ml HIV-1 RNA (PCR) log 09/03/17 09/03/17 09/03/17 15:55 17:13 18:02 WBC RBC Hgb Hct MCV MCH RDW Plt Count [place] % (Auto) Seg Neutrophils % Seg Neuts % (Manual) Lymphocytes % (Manual) Nucleated RBC % Seg Neutrophils # Man Lymphocytes # (Manual) PT INR Fibrinogen D-Dimer POC ABG pH POC ABG pCO2 POC ABG pO2 Sodium Potassium Chloride Carbon Dioxide BUN Creatinine Glucose POC Glucose 171 H Lactic Acid 9.60 H* 9.00 H* Calcium Phosphorus Magnesium AST ALT Lactate Dehydrogenase C-Reactive Protein Total Protein Albumin Lipase Lymph Enumerat CD4/CD8 % CD4 Cells Absolute CD4 Count % CD8 Cells % CD19 Cells Absolute CD19 Count Hep Bs Antibody, Quant Hep B Core Total Ab Hepatitis Be Antigen HIV-1 RNA PCR copies/ml HIV-1 RNA (PCR) log 09/03/17 09/03/17 09/04/17 20:29 23:02 04:00 WBC RBC Hgb Hct MCV MCH RDW Plt Count [place] % (Auto) Seg Neutrophils % Seg Neuts % (Manual) Lymphocytes % (Manual) Nucleated RBC % Seg Neutrophils # Man Lymphocytes # (Manual) PT INR Fibrinogen D-Dimer POC ABG pH POC ABG pCO2 POC ABG pO2 Sodium Potassium Chloride Carbon Dioxide BUN Creatinine Glucose POC Glucose 156 H Lactic Acid 9.00 H* 3.00 H* Calcium Phosphorus Magnesium AST ALT Lactate Dehydrogenase C-Reactive Protein Total Protein Albumin Lipase Lymph Enumerat CD4/CD8 % CD4 Cells Absolute CD4 Count % CD8 Cells % CD19 Cells Absolute CD19 Count Hep Bs Antibody, Quant Hep B Core Total Ab Hepatitis Be Antigen HIV-1 RNA PCR copies/ml HIV-1 RNA (PCR) log 09/04/17 09/04/17 09/04/17 04:00 04:00 09:00 WBC RBC 3.44 L Hgb 9.6 L Hct 29.0 L MCV MCH RDW 17.4 H Plt Count 124 L [place] % (Auto) Seg Neutrophils % Seg Neuts % (Manual) 91.0 H Lymphocytes % (Manual) 3.0 L Nucleated RBC % 2.0 H Seg Neutrophils # Man 9.9 H Lymphocytes # (Manual) 0.3 L PT 28.4 H INR 2.47 H Fibrinogen D-Dimer POC ABG pH POC ABG pCO2 POC ABG pO2 Sodium Potassium Chloride 110.1 H Carbon Dioxide BUN 29 H Creatinine Glucose 192 H POC Glucose Lactic Acid Calcium 6.8 L Phosphorus Magnesium AST 361 H ALT 315 H Lactate Dehydrogenase C-Reactive Protein Total Protein Albumin 1.6 L Lipase Lymph Enumerat CD4/CD8 % CD4 Cells Absolute CD4 Count % CD8 Cells % CD19 Cells Absolute CD19 Count Hep Bs Antibody, Quant Hep B Core Total Ab Hepatitis Be Antigen HIV-1 RNA PCR copies/ml HIV-1 RNA (PCR) log 09/04/17 09/04/17 09/04/17 09:00 12:00 17:23 WBC RBC Hgb Hct MCV MCH RDW Plt Count [place] % (Auto) Seg Neutrophils % Seg Neuts % (Manual) Lymphocytes % (Manual) Nucleated RBC % Seg Neutrophils # Man Lymphocytes # (Manual) PT INR Fibrinogen 611 H D-Dimer POC ABG pH POC ABG pCO2 POC ABG pO2 Sodium Potassium Chloride Carbon Dioxide BUN Creatinine Glucose POC Glucose Lactic Acid 2.10 H* 3.40 H* Calcium Phosphorus Magnesium AST ALT Lactate Dehydrogenase C-Reactive Protein Total Protein Albumin Lipase Lymph Enumerat CD4/CD8 % CD4 Cells Absolute CD4 Count % CD8 Cells % CD19 Cells Absolute CD19 Count Hep Bs Antibody, Quant Hep B Core Total Ab Hepatitis Be Antigen HIV-1 RNA PCR copies/ml HIV-1 RNA (PCR) log 09/04/17 09/04/17 09/04/17 17:23 17:47 22:30 WBC RBC Hgb Hct MCV MCH RDW Plt Count [place] % (Auto) Seg Neutrophils % Seg Neuts % (Manual) Lymphocytes % (Manual) Nucleated RBC % Seg Neutrophils # Man Lymphocytes # (Manual) PT INR Fibrinogen D-Dimer POC ABG pH POC ABG pCO2 POC ABG pO2 Sodium Potassium Chloride Carbon Dioxide BUN Creatinine Glucose POC Glucose 107 H Lactic Acid 4.70 H* Calcium Phosphorus Magnesium AST ALT Lactate Dehydrogenase C-Reactive Protein Total Protein Albumin Lipase 12 L Lymph Enumerat CD4/CD8 % CD4 Cells Absolute CD4 Count % CD8 Cells % CD19 Cells Absolute CD19 Count Hep Bs Antibody, Quant Hep B Core Total Ab Hepatitis Be Antigen HIV-1 RNA PCR copies/ml HIV-1 RNA (PCR) log 09/04/17 09/05/17 09/05/17 23:08 05:31 06:00 WBC RBC Hgb Hct MCV MCH RDW Plt Count [place] % (Auto) Seg Neutrophils % Seg Neuts % (Manual) Lymphocytes % (Manual) Nucleated RBC % Seg Neutrophils # Man Lymphocytes # (Manual) PT INR Fibrinogen D-Dimer POC ABG pH 7.226 L POC ABG pCO2 65.4 H POC ABG pO2 61 L Sodium Potassium Chloride 112.7 H Carbon Dioxide BUN 31 H Creatinine Glucose 132 H POC Glucose 109 H Lactic Acid Calcium 7.7 L Phosphorus Magnesium AST 834 H ALT 898 H Lactate Dehydrogenase C-Reactive Protein Total Protein Albumin 1.4 L Lipase Lymph Enumerat CD4/CD8 % CD4 Cells Absolute CD4 Count % CD8 Cells % CD19 Cells Absolute CD19 Count Hep Bs Antibody, Quant Hep B Core Total Ab Hepatitis Be Antigen HIV-1 RNA PCR copies/ml HIV-1 RNA (PCR) log 09/05/17 09/05/17 09/05/17 06:00 06:35 10:26 WBC RBC Hgb Hct MCV MCH RDW Plt Count [place] % (Auto) Seg Neutrophils % Seg Neuts % (Manual) Lymphocytes % (Manual) Nucleated RBC % Seg Neutrophils # Man Lymphocytes # (Manual) PT INR Fibrinogen D-Dimer POC ABG pH 7.311 L POC ABG pCO2 58.5 H POC ABG pO2 213 H Sodium Potassium Chloride Carbon Dioxide BUN Creatinine Glucose POC Glucose 110 H Lactic Acid 4.50 H* Calcium Phosphorus Magnesium AST ALT Lactate Dehydrogenase C-Reactive Protein Total Protein Albumin Lipase Lymph Enumerat CD4/CD8 % CD4 Cells Absolute CD4 Count % CD8 Cells % CD19 Cells Absolute CD19 Count Hep Bs Antibody, Quant Hep B Core Total Ab Hepatitis Be Antigen HIV-1 RNA PCR copies/ml HIV-1 RNA (PCR) log 09/05/17 09/05/17 09/05/17 10:55 10:55 10:55 WBC 11.1 H RBC 3.38 L Hgb 9.3 L Hct 28.7 L MCV MCH RDW 16.7 H Plt Count 118 L [place] % (Auto) Seg Neutrophils % Seg Neuts % (Manual) 92.0 H Lymphocytes % (Manual) 4.0 L Nucleated RBC % 2.0 H Seg Neutrophils # Man 10.2 H Lymphocytes # (Manual) 0.4 L PT INR Fibrinogen D-Dimer POC ABG pH POC ABG pCO2 POC ABG pO2 Sodium Potassium Chloride Carbon Dioxide BUN Creatinine Glucose POC Glucose Lactic Acid 3.60 H* Calcium Phosphorus Magnesium AST ALT Lactate Dehydrogenase 571 H C-Reactive Protein Total Protein Albumin Lipase Lymph Enumerat CD4/CD8 % CD4 Cells Absolute CD4 Count % CD8 Cells % CD19 Cells Absolute CD19 Count Hep Bs Antibody, Quant Hep B Core Total Ab Hepatitis Be Antigen HIV-1 RNA PCR copies/ml HIV-1 RNA (PCR) log 09/05/17 09/05/17 09/05/17 12:05 14:30 14:30 WBC RBC Hgb Hct MCV MCH RDW Plt Count [place] % (Auto) Seg Neutrophils % Seg Neuts % (Manual) Lymphocytes % (Manual) Nucleated RBC % Seg Neutrophils # Man Lymphocytes # (Manual) PT INR Fibrinogen D-Dimer POC ABG pH POC ABG pCO2 POC ABG pO2 Sodium Potassium Chloride Carbon Dioxide BUN Creatinine Glucose POC Glucose 148 H Lactic Acid Calcium Phosphorus Magnesium AST ALT Lactate Dehydrogenase C-Reactive Protein Total Protein Albumin Lipase Lymph Enumerat CD4/CD8 0.10 L % CD4 Cells 7 L Absolute CD4 Count 101 L % CD8 Cells 66 H % CD19 Cells 4 L Absolute CD19 Count 60 L Hep Bs Antibody, Quant Hep B Core Total Ab Hepatitis Be Antigen HIV-1 RNA PCR copies/ml 1750 H HIV-1 RNA (PCR) log 3.24 H 09/05/17 09/05/17 09/05/17 16:30 17:42 19:55 WBC RBC Hgb Hct MCV MCH RDW Plt Count [place] % (Auto) Seg Neutrophils % Seg Neuts % (Manual) Lymphocytes % (Manual) Nucleated RBC % Seg Neutrophils # Man Lymphocytes # (Manual) PT INR Fibrinogen D-Dimer POC ABG pH POC ABG pCO2 POC ABG pO2 Sodium Potassium Chloride Carbon Dioxide BUN Creatinine Glucose POC Glucose 183 H Lactic Acid 3.50 H* 3.60 H* Calcium Phosphorus Magnesium AST ALT Lactate Dehydrogenase C-Reactive Protein Total Protein Albumin Lipase Lymph Enumerat CD4/CD8 % CD4 Cells Absolute CD4 Count % CD8 Cells % CD19 Cells Absolute CD19 Count Hep Bs Antibody, Quant Hep B Core Total Ab Hepatitis Be Antigen HIV-1 RNA PCR copies/ml HIV-1 RNA (PCR) log 09/05/17 09/06/17 09/06/17 23:29 03:58 05:33 WBC RBC Hgb Hct MCV MCH RDW Plt Count [place] % (Auto) Seg Neutrophils % Seg Neuts % (Manual) Lymphocytes % (Manual) Nucleated RBC % Seg Neutrophils # Man Lymphocytes # (Manual) PT INR Fibrinogen D-Dimer POC ABG pH POC ABG pCO2 62.5 H POC ABG pO2 141 H Sodium Potassium Chloride Carbon Dioxide BUN Creatinine Glucose POC Glucose 203 H 207 H Lactic Acid Calcium Phosphorus Magnesium AST ALT Lactate Dehydrogenase C-Reactive Protein Total Protein Albumin Lipase Lymph Enumerat CD4/CD8 % CD4 Cells Absolute CD4 Count % CD8 Cells % CD19 Cells Absolute CD19 Count Hep Bs Antibody, Quant Hep B Core Total Ab Hepatitis Be Antigen HIV-1 RNA PCR copies/ml HIV-1 RNA (PCR) log 09/06/17 09/06/17 09/06/17 06:15 06:15 06:15 WBC RBC 3.26 L Hgb 9.0 L Hct 27.5 L MCV MCH RDW 16.7 H Plt Count 104 L [place] % (Auto) Seg Neutrophils % Seg Neuts % (Manual) 97.0 H Lymphocytes % (Manual) 2.0 L Nucleated RBC % Seg Neutrophils # Man 8.1 H Lymphocytes # (Manual) 0.2 L PT INR Fibrinogen D-Dimer POC ABG pH POC ABG pCO2 POC ABG pO2 Sodium 150 H Potassium Chloride 110.9 H Carbon Dioxide 31 H BUN 34 H Creatinine Glucose 207 H POC Glucose Lactic Acid 2.90 H* Calcium 8.2 L Phosphorus Magnesium AST 346 H ALT 634 H Lactate Dehydrogenase C-Reactive Protein Total Protein Albumin 1.5 L Lipase Lymph Enumerat CD4/CD8 % CD4 Cells Absolute CD4 Count % CD8 Cells % CD19 Cells Absolute CD19 Count Hep Bs Antibody, Quant Hep B Core Total Ab Hepatitis Be Antigen HIV-1 RNA PCR copies/ml HIV-1 RNA (PCR) log 09/06/17 09/06/17 09/06/17 08:03 11:32 18:04 WBC RBC Hgb Hct MCV MCH RDW Plt Count [place] % (Auto) Seg Neutrophils % Seg Neuts % (Manual) Lymphocytes % (Manual) Nucleated RBC % Seg Neutrophils # Man Lymphocytes # (Manual) PT INR Fibrinogen D-Dimer POC ABG pH POC ABG pCO2 POC ABG pO2 Sodium Potassium Chloride Carbon Dioxide BUN Creatinine Glucose POC Glucose 169 H 130 H Lactic Acid 2.90 H* Calcium Phosphorus Magnesium AST ALT Lactate Dehydrogenase C-Reactive Protein Total Protein Albumin Lipase Lymph Enumerat CD4/CD8 % CD4 Cells Absolute CD4 Count % CD8 Cells % CD19 Cells Absolute CD19 Count Hep Bs Antibody, Quant Hep B Core Total Ab Hepatitis Be Antigen HIV-1 RNA PCR copies/ml HIV-1 RNA (PCR) log 09/07/17 09/07/17 09/07/17 00:03 04:13 04:13 WBC RBC Hgb Hct MCV MCH RDW Plt Count [place] % (Auto) Seg Neutrophils % Seg Neuts % (Manual) Lymphocytes % (Manual) Nucleated RBC % Seg Neutrophils # Man Lymphocytes # (Manual) PT INR Fibrinogen D-Dimer POC ABG pH POC ABG pCO2 POC ABG pO2 Sodium 152 H Potassium 3.5 L Chloride 114.9 H Carbon Dioxide 34 H BUN 35 H Creatinine Glucose 149 H POC Glucose 123 H Lactic Acid Calcium Phosphorus Magnesium AST 150 H ALT 381 H Lactate Dehydrogenase C-Reactive Protein Total Protein Albumin 1.3 L Lipase Lymph Enumerat CD4/CD8 % CD4 Cells Absolute CD4 Count % CD8 Cells % CD19 Cells Absolute CD19 Count Hep Bs Antibody, Quant Hep B Core Total Ab Reactive H Hepatitis Be Antigen HIV-1 RNA PCR copies/ml HIV-1 RNA (PCR) log 09/07/17 09/07/17 09/07/17 04:13 04:13 04:33 WBC RBC Hgb Hct MCV MCH RDW Plt Count [place] % (Auto) Seg Neutrophils % Seg Neuts % (Manual) Lymphocytes % (Manual) Nucleated RBC % Seg Neutrophils # Man Lymphocytes # (Manual) PT INR Fibrinogen D-Dimer POC ABG pH 7.590 H POC ABG pCO2 POC ABG pO2 179 H Sodium Potassium Chloride Carbon Dioxide BUN Creatinine Glucose POC Glucose Lactic Acid Calcium Phosphorus Magnesium AST ALT Lactate Dehydrogenase C-Reactive Protein Total Protein Albumin Lipase Lymph Enumerat CD4/CD8 % CD4 Cells Absolute CD4 Count % CD8 Cells % CD19 Cells Absolute CD19 Count Hep Bs Antibody, Quant <5 L Hep B Core Total Ab Hepatitis Be Antigen Reactive H HIV-1 RNA PCR copies/ml HIV-1 RNA (PCR) log 09/07/17 09/07/17 09/07/17 05:05 08:20 11:34 WBC 11.9 H RBC 3.11 L Hgb 8.4 L Hct 26.0 L MCV MCH 27 L RDW 16.2 H Plt Count 109 L [place] % (Auto) Seg Neutrophils % Seg Neuts % (Manual) 93.0 H Lymphocytes % (Manual) 1.0 L Nucleated RBC % Seg Neutrophils # Man 11.1 H Lymphocytes # (Manual) 0.1 L PT INR Fibrinogen D-Dimer POC ABG pH POC ABG pCO2 POC ABG pO2 Sodium Potassium Chloride Carbon Dioxide BUN Creatinine Glucose POC Glucose 168 H 156 H Lactic Acid Calcium Phosphorus Magnesium AST ALT Lactate Dehydrogenase C-Reactive Protein Total Protein Albumin Lipase Lymph Enumerat CD4/CD8 % CD4 Cells Absolute CD4 Count % CD8 Cells % CD19 Cells Absolute CD19 Count Hep Bs Antibody, Quant Hep B Core Total Ab Hepatitis Be Antigen HIV-1 RNA PCR copies/ml HIV-1 RNA (PCR) log 09/07/17 09/07/17 09/07/17 18:13 20:14 20:14 WBC 14.6 H RBC 3.36 L Hgb 9.2 L Hct 28.3 L MCV MCH 27 L RDW 16.1 H Plt Count 120 L [place] % (Auto) Seg Neutrophils % Seg Neuts % (Manual) 93.0 H Lymphocytes % (Manual) 2.0 L Nucleated RBC % Seg Neutrophils # Man 13.6 H Lymphocytes # (Manual) 0.3 L PT INR Fibrinogen D-Dimer POC ABG pH POC ABG pCO2 POC ABG pO2 Sodium 154 H Potassium 3.4 L Chloride 114.7 H Carbon Dioxide 34 H BUN 37 H Creatinine Glucose 131 H POC Glucose 136 H Lactic Acid Calcium Phosphorus Magnesium AST ALT Lactate Dehydrogenase C-Reactive Protein Total Protein Albumin Lipase Lymph Enumerat CD4/CD8 % CD4 Cells Absolute CD4 Count % CD8 Cells % CD19 Cells Absolute CD19 Count Hep Bs Antibody, Quant Hep B Core Total Ab Hepatitis Be Antigen HIV-1 RNA PCR copies/ml HIV-1 RNA (PCR) log 09/08/17 09/08/17 09/08/17 05:15 05:30 05:30 WBC 13.6 H RBC 3.29 L Hgb 9.1 L Hct 27.4 L MCV 83 L MCH RDW 15.8 H Plt Count 111 L [place] % (Auto) Seg Neutrophils % Seg Neuts % (Manual) 94.0 H Lymphocytes % (Manual) 4.0 L Nucleated RBC % 1.0 H Seg Neutrophils # Man 12.8 H Lymphocytes # (Manual) 0.5 L PT INR Fibrinogen D-Dimer POC ABG pH 7.460 H POC ABG pCO2 54.7 H POC ABG pO2 209 H Sodium Potassium Chloride Carbon Dioxide BUN Creatinine Glucose POC Glucose Lactic Acid Calcium Phosphorus Magnesium AST ALT Lactate Dehydrogenase C-Reactive Protein 8.70 H Total Protein Albumin Lipase Lymph Enumerat CD4/CD8 % CD4 Cells Absolute CD4 Count % CD8 Cells % CD19 Cells Absolute CD19 Count Hep Bs Antibody, Quant Hep B Core Total Ab Hepatitis Be Antigen HIV-1 RNA PCR copies/ml HIV-1 RNA (PCR) log 09/08/17 09/08/17 09/08/17 05:30 12:24 17:19 WBC RBC Hgb Hct MCV MCH RDW Plt Count [place] % (Auto) Seg Neutrophils % Seg Neuts % (Manual) Lymphocytes % (Manual) Nucleated RBC % Seg Neutrophils # Man Lymphocytes # (Manual) PT INR Fibrinogen D-Dimer POC ABG pH POC ABG pCO2 POC ABG pO2 Sodium 154 H Potassium Chloride 114.3 H Carbon Dioxide 36 H BUN 39 H Creatinine Glucose 163 H POC Glucose 181 H 170 H Lactic Acid Calcium Phosphorus Magnesium AST ALT Lactate Dehydrogenase C-Reactive Protein Total Protein Albumin Lipase Lymph Enumerat CD4/CD8 % CD4 Cells Absolute CD4 Count % CD8 Cells % CD19 Cells Absolute CD19 Count Hep Bs Antibody, Quant Hep B Core Total Ab Hepatitis Be Antigen HIV-1 RNA PCR copies/ml HIV-1 RNA (PCR) log 09/08/17 09/09/17 09/09/17 23:51 04:00 04:00 WBC 20.1 H RBC 3.37 L Hgb 9.2 L Hct 28.0 L MCV 83 L MCH 27 L RDW 15.7 H Plt Count 123 L [place] % (Auto) Seg Neutrophils % Seg Neuts % (Manual) 86.0 H Lymphocytes % (Manual) 9.0 L Nucleated RBC % Seg Neutrophils # Man 17.3 H Lymphocytes # (Manual) PT INR Fibrinogen D-Dimer POC ABG pH POC ABG pCO2 POC ABG pO2 Sodium 150 H Potassium 3.0 L Chloride 107.7 H Carbon Dioxide 35 H BUN 39 H Creatinine Glucose 174 H POC Glucose 185 H Lactic Acid Calcium Phosphorus Magnesium AST ALT Lactate Dehydrogenase C-Reactive Protein Total Protein Albumin Lipase Lymph Enumerat CD4/CD8 % CD4 Cells Absolute CD4 Count % CD8 Cells % CD19 Cells Absolute CD19 Count Hep Bs Antibody, Quant Hep B Core Total Ab Hepatitis Be Antigen HIV-1 RNA PCR copies/ml HIV-1 RNA (PCR) log 09/09/17 09/09/17 09/09/17 04:34 05:57 12:04 WBC RBC Hgb Hct MCV MCH RDW Plt Count [place] % (Auto) Seg Neutrophils % Seg Neuts % (Manual) Lymphocytes % (Manual) Nucleated RBC % Seg Neutrophils # Man Lymphocytes # (Manual) PT INR Fibrinogen D-Dimer POC ABG pH 7.575 H POC ABG pCO2 POC ABG pO2 63 L Sodium Potassium Chloride Carbon Dioxide BUN Creatinine Glucose POC Glucose 170 H 126 H Lactic Acid Calcium Phosphorus Magnesium AST ALT Lactate Dehydrogenase C-Reactive Protein Total Protein Albumin Lipase Lymph Enumerat CD4/CD8 % CD4 Cells Absolute CD4 Count % CD8 Cells % CD19 Cells Absolute CD19 Count Hep Bs Antibody, Quant Hep B Core Total Ab Hepatitis Be Antigen HIV-1 RNA PCR copies/ml HIV-1 RNA (PCR) log 09/09/17 09/10/17 09/10/17 17:31 00:02 03:46 WBC RBC Hgb Hct MCV MCH RDW Plt Count [place] % (Auto) Seg Neutrophils % Seg Neuts % (Manual) Lymphocytes % (Manual) Nucleated RBC % Seg Neutrophils # Man Lymphocytes # (Manual) PT INR Fibrinogen D-Dimer POC ABG pH 7.529 H POC ABG pCO2 45.6 H POC ABG pO2 69 L Sodium Potassium Chloride Carbon Dioxide BUN Creatinine Glucose POC Glucose 180 H 190 H Lactic Acid Calcium Phosphorus Magnesium AST ALT Lactate Dehydrogenase C-Reactive Protein Total Protein Albumin Lipase Lymph Enumerat CD4/CD8 % CD4 Cells Absolute CD4 Count % CD8 Cells % CD19 Cells Absolute CD19 Count Hep Bs Antibody, Quant Hep B Core Total Ab Hepatitis Be Antigen HIV-1 RNA PCR copies/ml HIV-1 RNA (PCR) log 09/10/17 09/10/17 09/10/17 04:44 04:50 06:19 WBC 21.7 H RBC 3.32 L Hgb 9.2 L Hct 28.0 L MCV MCH RDW 15.3 H Plt Count [place] % (Auto) Seg Neutrophils % Seg Neuts % (Manual) 96.0 H Lymphocytes % (Manual) 4.0 L Nucleated RBC % Seg Neutrophils # Man 20.8 H Lymphocytes # (Manual) 0.9 L PT INR Fibrinogen D-Dimer POC ABG pH POC ABG pCO2 POC ABG pO2 Sodium 149 H Potassium Chloride 109.8 H Carbon Dioxide 36 H BUN 34 H Creatinine 0.7 L Glucose 139 H POC Glucose 154 H Lactic Acid Calcium Phosphorus Magnesium AST ALT Lactate Dehydrogenase C-Reactive Protein Total Protein Albumin Lipase Lymph Enumerat CD4/CD8 % CD4 Cells Absolute CD4 Count % CD8 Cells % CD19 Cells Absolute CD19 Count Hep Bs Antibody, Quant Hep B Core Total Ab Hepatitis Be Antigen HIV-1 RNA PCR copies/ml HIV-1 RNA (PCR) log 09/10/17 11:58 WBC RBC Hgb Hct MCV MCH RDW Plt Count [place] % (Auto) Seg Neutrophils % Seg Neuts % (Manual) Lymphocytes % (Manual) Nucleated RBC % Seg Neutrophils # Man Lymphocytes # (Manual) PT INR Fibrinogen D-Dimer POC ABG pH POC ABG pCO2 POC ABG pO2 Sodium Potassium Chloride Carbon Dioxide BUN Creatinine Glucose POC Glucose 204 H Lactic Acid Calcium Phosphorus Magnesium AST ALT Lactate Dehydrogenase C-Reactive Protein Total Protein Albumin Lipase Lymph Enumerat CD4/CD8 % CD4 Cells Absolute CD4 Count % CD8 Cells % CD19 Cells Absolute CD19 Count Hep Bs Antibody, Quant Hep B Core Total Ab Hepatitis Be Antigen HIV-1 RNA PCR copies/ml HIV-1 RNA (PCR) log Chest x-ray: report reviewed, image reviewed
[2017-09-11] MEDS: NOVOLOG SUB-Q SCH ×4 (00:55→18:45)
[2017-09-11] MEDS: DUONEB *Not for PRN Use IH SCH ×4 (01:27→21:07)
[2017-09-11] MEDS: fentaNYL DRIP Premix 2,000 MCG/100 ML BAG IV SCH ×2 (05:04→15:21)
[2017-09-11] MEDS: MAXIPIME 2 GM in NACL 0.9% 20 ML IV SCH ×3 (05:11→21:59)
[2017-09-11 07:02] LABS: Hematocrit 24.9 % (35.5-45.6); Hemoglobin 7.9 gm/dl (11.8-15.2); Mean Corpuscular HGB Conc 32 % (32-34); Mean Corpuscular Hemoglobin 27 pg (28-32); Mean Corpuscular Volume 85 fl (84-94); Platelet Count 147 K/mm3 (140-440); Red Blood Count 2.93 M/mm3 (3.65-5.03); Red Cell Distribution Width 15.6 % (13.2-15.2)
[2017-09-11 07:26] LABS: BUN/Creatinine Ratio 50; Blood Urea Nitrogen 30 mg/dL (9-20); Calcium 7.4 mg/dL (8.4-10.2); Hemolysis Index 13
[2017-09-11] MEDS: LEVOPHED 8 MG in NACL 0.9% 250ML 242 ML IV SCH (07:40)
[2017-09-11] MEDS: MIDAZOLAM 100 MG in NACL 0.9% 80 ML IV SCH ×2 (07:43→15:21)
[2017-09-11 08:32] LABS: Basophils % (Manual) 0 % (0.0-1.8); Eosinophils % (Manual) 0 % (0.0-4.3); Total Cells Counted 100
[2017-09-11 08:33] LABS: Anisocytosis 1+; Large Platelets Few; Platelet Estimate Cons
[2017-09-11] MEDS: LOVENOX SUB-Q SCH (09:26)
[2017-09-11] MEDS: DIFLUCAN 200 MG/100 ML BAG IV SCH (09:27)
[2017-09-11] MEDS: BACTRIM DS PO SCH (09:27)
[2017-09-11] MEDS: PEPCID PO SCH ×2 (09:27→21:58)
--- NOTE | 2017-09-11 10:46 | Progress Note ---
Assessment and Plan 52 y/o male, vet, admitted with acute respiratory failure thought secondary to pneumonia with lactic acidosis, found to have newly diagnosed HIV being treated empirically for PJP and with systolic heart failure 1. Discussed with sister at bedside. Patient is not . Has one adult son. Will discuss with him either via phone or in person the need for tracheostomy. Will need peg placement as well. Has been intubated now for about 8-9 days. 2. Abx therapy per ID 3. Pressors weaned off now. Going for CT of chest and abdomen and pelvis with contrast. 4. Will stop D5W. 5. EF seen on echo was 20-25%. Has been on daily lasix. RN concerned this am. Will hold this am dose of lasix. FiO2 at 30% and PaO2 this am was good. 6. Continue feeds as tolerated 7. Overall prognosis is guarded to poor. 8. Stop D5 drip. 9. Continue free water flushes CCT 31 minutes. Subjective Date of service: 09/11/17 Principal diagnosis: Septic shock, acute hypoxemic respiratory failure, [place] Interval history: No acute events. Sister at bedside. Currently on FiO2 at 30%. Sedated with Fent and Versed 3 and 3 respectively. Objective Vital Signs - 12hr 09/10/17 09/10/17 09/11/17 23:00 23:29 00:00 Temperature 99.1 F Pulse Rate 81 91 H 79 Pulse Rate [ Anterior Bilateral Throughout] Pulse Rate [ Apical] Pulse Rate [ 79 From Monitor] Respiratory 22 22 Rate Respiratory Rate [Anterior Bilateral Throughout] Blood Pressure 92/47 88/43 103/54 O2 Sat by Pulse 97 97 97 Oximetry 09/11/17 09/11/17 09/11/17 01:01 01:27 01:37 Temperature Pulse Rate 78 Pulse Rate [ 71 74 Anterior Bilateral Throughout] Pulse Rate [ Apical] Pulse Rate [ From Monitor] Respiratory 22 Rate Respiratory 22 20 Rate [Anterior Bilateral Throughout] Blood Pressure 118/64 O2 Sat by Pulse 98 Oximetry 09/11/17 09/11/17 09/11/17 02:00 03:00 03:59 Temperature Pulse Rate 99 H 72 69 Pulse Rate [ Anterior Bilateral Throughout] Pulse Rate [ Apical] Pulse Rate [ From Monitor] Respiratory 24 22 Rate Respiratory Rate [Anterior Bilateral Throughout] Blood Pressure 113/55 94/49 100/50 O2 Sat by Pulse 98 98 98 Oximetry 09/11/17 09/11/17 09/11/17 04:00 04:01 05:00 Temperature 98.8 F Pulse Rate 93 H 87 Pulse Rate [ Anterior Bilateral Throughout] Pulse Rate [ Apical] Pulse Rate [ 67 From Monitor] Respiratory 18 16 Rate Respiratory Rate [Anterior Bilateral Throughout] Blood Pressure 119/61 113/69 O2 Sat by Pulse 100 95 Oximetry 09/11/17 09/11/17 09/11/17 06:00 07:00 07:50 Temperature Pulse Rate 72 61 Pulse Rate [ Anterior Bilateral Throughout] Pulse Rate [ 61 Apical] Pulse Rate [ 61 From Monitor] Respiratory 22 22 22 Rate Respiratory Rate [Anterior Bilateral Throughout] Blood Pressure 98/58 99/57 O2 Sat by Pulse 97 98 98 Oximetry 09/11/17 09/11/17 09/11/17 08:00 08:29 08:38 Temperature 97.8 F Pulse Rate 107 H Pulse Rate [ 104 H 88 Anterior Bilateral Throughout] Pulse Rate [ Apical] Pulse Rate [ From Monitor] Respiratory 22 Rate Respiratory 23 22 Rate [Anterior Bilateral Throughout] Blood Pressure 131/85 O2 Sat by Pulse 98 Oximetry 09/11/17 09:00 Temperature Pulse Rate 111 H Pulse Rate [ Anterior Bilateral Throughout] Pulse Rate [ Apical] Pulse Rate [ From Monitor] Respiratory 34 H Rate Respiratory Rate [Anterior Bilateral Throughout] Blood Pressure 143/82 O2 Sat by Pulse 98 Oximetry Constitutional: other (critically ill on vent, sedated) Eyes: non-icteric ENT: other (orally intubated and sedated) Neck: supple Effort: normal Ascultation: Bilateral: diminished breath sounds, rales, other (coarse BS bilaterally) Percussion: Bilateral: not dull Cardiovascular: regular rate and rhythm (sinus tach) Gastrointestinal: hypoactive bowel sounds, soft, non-tender, non-distended Extremities: no cyanosis, no edema, pink and warm Neurologic: normal mental status, non-focal exam, pupils equal and round, CN II- XII normal Psychiatric: other (unable to assess) CBC and BMP: 09/11/17 06:00 09/11/17 06:00 ABG, PT/INR, D-dimer: ABG POC ABG pH 7.572 (7.35-7.45) H 09/11/17 04:03 POC ABG pCO2 41.1 (35-45) 09/11/17 04:03 POC ABG pO2 113 (80-105) H 09/11/17 04:03 POC ABG HCO3 37.8 09/11/17 04:03 POC ABG Total CO2 39 09/11/17 04:03 POC ABG O2 Sat 99 09/11/17 04:03 PT/INR, D-dimer PT 28.4 Sec. (12.2-14.9) H 09/04/17 04:00 INR 2.47 (0.87-1.13) H 09/04/17 04:00 D-Dimer 976.43 ng/mlDDU (0-234) H 09/01/17 23:27 Abnormal lab findings: Abnormal Labs 09/01/17 09/01/17 09/01/17 19:00 19:00 23:27 WBC RBC Hgb 10.9 L Hct 32.3 L MCV 83 L MCH RDW 15.6 H Plt Count [place] % (Auto) Seg Neutrophils % Seg Neuts % (Manual) Lymphocytes % (Manual) Nucleated RBC % Seg Neutrophils # Man Lymphocytes # (Manual) PT INR Fibrinogen D-Dimer 976.43 H POC ABG pH POC ABG pCO2 POC ABG pO2 Sodium 133 L Potassium Chloride 96.4 L Carbon Dioxide BUN Creatinine Glucose 113 H POC Glucose Lactic Acid Calcium Phosphorus Magnesium AST ALT Lactate Dehydrogenase C-Reactive Protein Total Protein Albumin Lipase Lymph Enumerat CD4/CD8 % CD4 Cells Absolute CD4 Count % CD8 Cells % CD19 Cells Absolute CD19 Count Hep Bs Antibody, Quant Hep B Core Total Ab Hepatitis Be Antigen HIV-1 RNA PCR copies/ml HIV-1 RNA (PCR) log 09/01/17 09/02/17 09/02/17 23:27 01:25 07:36 WBC 2.2 L RBC 3.41 L Hgb 9.6 L Hct 28.9 L MCV MCH RDW 16.0 H Plt Count [place] % (Auto) 12.6 H Seg Neutrophils % 70.4 H Seg Neuts % (Manual) Lymphocytes % (Manual) Nucleated RBC % Seg Neutrophils # Man 1.1 L Lymphocytes # (Manual) 0.6 L PT INR Fibrinogen D-Dimer POC ABG pH POC ABG pCO2 POC ABG pO2 Sodium Potassium Chloride Carbon Dioxide BUN Creatinine Glucose POC Glucose Lactic Acid 3.30 H* 4.10 H* Calcium Phosphorus Magnesium AST ALT Lactate Dehydrogenase C-Reactive Protein Total Protein Albumin Lipase Lymph Enumerat CD4/CD8 % CD4 Cells Absolute CD4 Count % CD8 Cells % CD19 Cells Absolute CD19 Count Hep Bs Antibody, Quant Hep B Core Total Ab Hepatitis Be Antigen HIV-1 RNA PCR copies/ml HIV-1 RNA (PCR) log 09/02/17 09/02/17 09/02/17 07:36 07:36 07:36 WBC RBC Hgb Hct MCV MCH RDW Plt Count [place] % (Auto) Seg Neutrophils % Seg Neuts % (Manual) Lymphocytes % (Manual) Nucleated RBC % Seg Neutrophils # Man Lymphocytes # (Manual) PT 18.6 H INR 1.46 H Fibrinogen D-Dimer POC ABG pH POC ABG pCO2 POC ABG pO2 Sodium 136 L Potassium Chloride Carbon Dioxide BUN Creatinine Glucose POC Glucose Lactic Acid 3.80 H* Calcium Phosphorus Magnesium 1.20 L AST ALT Lactate Dehydrogenase C-Reactive Protein Total Protein 9.1 H Albumin 2.0 L Lipase Lymph Enumerat CD4/CD8 % CD4 Cells Absolute CD4 Count % CD8 Cells % CD19 Cells Absolute CD19 Count Hep Bs Antibody, Quant Hep B Core Total Ab Hepatitis Be Antigen HIV-1 RNA PCR copies/ml HIV-1 RNA (PCR) log 09/02/17 09/02/17 09/02/17 08:49 09:40 11:33 WBC RBC Hgb Hct MCV MCH RDW Plt Count [place] % (Auto) Seg Neutrophils % Seg Neuts % (Manual) Lymphocytes % (Manual) Nucleated RBC % Seg Neutrophils # Man Lymphocytes # (Manual) PT INR Fibrinogen D-Dimer POC ABG pH 7.313 L POC ABG pCO2 POC ABG pO2 116 H Sodium Potassium Chloride Carbon Dioxide BUN Creatinine Glucose POC Glucose Lactic Acid 3.60 H* 5.20 H* Calcium Phosphorus Magnesium AST ALT Lactate Dehydrogenase C-Reactive Protein Total Protein Albumin Lipase Lymph Enumerat CD4/CD8 % CD4 Cells Absolute CD4 Count % CD8 Cells % CD19 Cells Absolute CD19 Count Hep Bs Antibody, Quant Hep B Core Total Ab Hepatitis Be Antigen HIV-1 RNA PCR copies/ml HIV-1 RNA (PCR) log 09/02/17 09/02/17 09/02/17 19:34 23:37 23:40 WBC RBC Hgb Hct MCV MCH RDW Plt Count [place] % (Auto) Seg Neutrophils % Seg Neuts % (Manual) Lymphocytes % (Manual) Nucleated RBC % Seg Neutrophils # Man Lymphocytes # (Manual) PT INR Fibrinogen D-Dimer POC ABG pH POC ABG pCO2 POC ABG pO2 Sodium Potassium Chloride Carbon Dioxide BUN Creatinine Glucose 59 L POC Glucose 47 L Lactic Acid Calcium Phosphorus Magnesium AST ALT Lactate Dehydrogenase C-Reactive Protein 22.30 H Total Protein Albumin Lipase Lymph Enumerat CD4/CD8 % CD4 Cells Absolute CD4 Count % CD8 Cells % CD19 Cells Absolute CD19 Count Hep Bs Antibody, Quant Hep B Core Total Ab Hepatitis Be Antigen HIV-1 RNA PCR copies/ml HIV-1 RNA (PCR) log 09/03/17 09/03/17 09/03/17 00:06 05:15 05:15 WBC RBC 3.59 L Hgb 10.1 L Hct 31.5 L MCV MCH RDW 18.0 H Plt Count [place] % (Auto) Seg Neutrophils % Seg Neuts % (Manual) Lymphocytes % (Manual) 1.0 L Nucleated RBC % 1.0 H Seg Neutrophils # Man Lymphocytes # (Manual) 0.1 L PT INR Fibrinogen D-Dimer POC ABG pH POC ABG pCO2 POC ABG pO2 Sodium Potassium Chloride Carbon Dioxide BUN Creatinine Glucose POC Glucose 144 H Lactic Acid 9.10 H* Calcium Phosphorus Magnesium AST ALT Lactate Dehydrogenase C-Reactive Protein Total Protein Albumin Lipase Lymph Enumerat CD4/CD8 % CD4 Cells Absolute CD4 Count % CD8 Cells % CD19 Cells Absolute CD19 Count Hep Bs Antibody, Quant Hep B Core Total Ab Hepatitis Be Antigen HIV-1 RNA PCR copies/ml HIV-1 RNA (PCR) log 09/03/17 09/03/17 09/03/17 05:15 05:55 07:40 WBC RBC Hgb Hct MCV MCH RDW Plt Count [place] % (Auto) Seg Neutrophils % Seg Neuts % (Manual) Lymphocytes % (Manual) Nucleated RBC % Seg Neutrophils # Man Lymphocytes # (Manual) PT INR Fibrinogen D-Dimer POC ABG pH 6.999 L POC ABG pCO2 POC ABG pO2 64 L Sodium Potassium 5.6 H D Chloride 108.4 H Carbon Dioxide 11 L D BUN 30 H Creatinine Glucose 115 H POC Glucose Lactic Acid 9.20 H* Calcium 7.3 L D Phosphorus 6.40 H Magnesium AST 88 H ALT Lactate Dehydrogenase C-Reactive Protein Total Protein Albumin 1.7 L Lipase Lymph Enumerat CD4/CD8 % CD4 Cells Absolute CD4 Count % CD8 Cells % CD19 Cells Absolute CD19 Count Hep Bs Antibody, Quant Hep B Core Total Ab Hepatitis Be Antigen HIV-1 RNA PCR copies/ml HIV-1 RNA (PCR) log 0209/03/17 09/03/17 09:55 12:03 13:17 WBC RBC Hgb Hct MCV MCH RDW Plt Count [place] % (Auto) Seg Neutrophils % Seg Neuts % (Manual) Lymphocytes % (Manual) Nucleated RBC % Seg Neutrophils # Man Lymphocytes # (Manual) PT INR Fibrinogen D-Dimer POC ABG pH POC ABG pCO2 POC ABG pO2 Sodium Potassium Chloride Carbon Dioxide BUN Creatinine Glucose POC Glucose 155 H Lactic Acid 9.50 H* 9.90 H* Calcium Phosphorus Magnesium AST ALT Lactate Dehydrogenase C-Reactive Protein Total Protein Albumin Lipase Lymph Enumerat CD4/CD8 % CD4 Cells Absolute CD4 Count % CD8 Cells % CD19 Cells Absolute CD19 Count Hep Bs Antibody, Quant Hep B Core Total Ab Hepatitis Be Antigen HIV-1 RNA PCR copies/ml HIV-1 RNA (PCR) log 09/03/17 09/03/17 09/03/17 15:55 17:13 18:02 WBC RBC Hgb Hct MCV MCH RDW Plt Count [place] % (Auto) Seg Neutrophils % Seg Neuts % (Manual) Lymphocytes % (Manual) Nucleated RBC % Seg Neutrophils # Man Lymphocytes # (Manual) PT INR Fibrinogen D-Dimer POC ABG pH POC ABG pCO2 POC ABG pO2 Sodium Potassium Chloride Carbon Dioxide BUN Creatinine Glucose POC Glucose 171 H Lactic Acid 9.60 H* 9.00 H* Calcium Phosphorus Magnesium AST ALT Lactate Dehydrogenase C-Reactive Protein Total Protein Albumin Lipase Lymph Enumerat CD4/CD8 % CD4 Cells Absolute CD4 Count % CD8 Cells % CD19 Cells Absolute CD19 Count Hep Bs Antibody, Quant Hep B Core Total Ab Hepatitis Be Antigen HIV-1 RNA PCR copies/ml HIV-1 RNA (PCR) log 09/03/17 09/03/17 09/04/17 20:29 23:02 04:00 WBC RBC Hgb Hct MCV MCH RDW Plt Count [place] % (Auto) Seg Neutrophils % Seg Neuts % (Manual) Lymphocytes % (Manual) Nucleated RBC % Seg Neutrophils # Man Lymphocytes # (Manual) PT INR Fibrinogen D-Dimer POC ABG pH POC ABG pCO2 POC ABG pO2 Sodium Potassium Chloride Carbon Dioxide BUN Creatinine Glucose POC Glucose 156 H Lactic Acid 9.00 H* 3.00 H* Calcium Phosphorus Magnesium AST ALT Lactate Dehydrogenase C-Reactive Protein Total Protein Albumin Lipase Lymph Enumerat CD4/CD8 % CD4 Cells Absolute CD4 Count % CD8 Cells % CD19 Cells Absolute CD19 Count Hep Bs Antibody, Quant Hep B Core Total Ab Hepatitis Be Antigen HIV-1 RNA PCR copies/ml HIV-1 RNA (PCR) log 09/04/17 09/04/17 09/04/17 04:00 04:00 09:00 WBC RBC 3.44 L Hgb 9.6 L Hct 29.0 L MCV MCH RDW 17.4 H Plt Count 124 L [place] % (Auto) Seg Neutrophils % Seg Neuts % (Manual) 91.0 H Lymphocytes % (Manual) 3.0 L Nucleated RBC % 2.0 H Seg Neutrophils # Man 9.9 H Lymphocytes # (Manual) 0.3 L PT 28.4 H INR 2.47 H Fibrinogen D-Dimer POC ABG pH POC ABG pCO2 POC ABG pO2 Sodium Potassium Chloride 110.1 H Carbon Dioxide BUN 29 H Creatinine Glucose 192 H POC Glucose Lactic Acid Calcium 6.8 L Phosphorus Magnesium AST 361 H ALT 315 H Lactate Dehydrogenase C-Reactive Protein Total Protein Albumin 1.6 L Lipase Lymph Enumerat CD4/CD8 % CD4 Cells Absolute CD4 Count % CD8 Cells % CD19 Cells Absolute CD19 Count Hep Bs Antibody, Quant Hep B Core Total Ab Hepatitis Be Antigen HIV-1 RNA PCR copies/ml HIV-1 RNA (PCR) log 09/04/17 09/04/17 09/04/17 09:00 12:00 17:23 WBC RBC Hgb Hct MCV MCH RDW Plt Count [place] % (Auto) Seg Neutrophils % Seg Neuts % (Manual) Lymphocytes % (Manual) Nucleated RBC % Seg Neutrophils # Man Lymphocytes # (Manual) PT INR Fibrinogen 611 H D-Dimer POC ABG pH POC ABG pCO2 POC ABG pO2 Sodium Potassium Chloride Carbon Dioxide BUN Creatinine Glucose POC Glucose Lactic Acid 2.10 H* 3.40 H* Calcium Phosphorus Magnesium AST ALT Lactate Dehydrogenase C-Reactive Protein Total Protein Albumin Lipase Lymph Enumerat CD4/CD8 % CD4 Cells Absolute CD4 Count % CD8 Cells % CD19 Cells Absolute CD19 Count Hep Bs Antibody, Quant Hep B Core Total Ab Hepatitis Be Antigen HIV-1 RNA PCR copies/ml HIV-1 RNA (PCR) log 09/04/17 09/04/17 09/04/17 17:23 17:47 22:30 WBC RBC Hgb Hct MCV MCH RDW Plt Count [place] % (Auto) Seg Neutrophils % Seg Neuts % (Manual) Lymphocytes % (Manual) Nucleated RBC % Seg Neutrophils # Man Lymphocytes # (Manual) PT INR Fibrinogen D-Dimer POC ABG pH POC ABG pCO2 POC ABG pO2 Sodium Potassium Chloride Carbon Dioxide BUN Creatinine Glucose POC Glucose 107 H Lactic Acid 4.70 H* Calcium Phosphorus Magnesium AST ALT Lactate Dehydrogenase C-Reactive Protein Total Protein Albumin Lipase 12 L Lymph Enumerat CD4/CD8 % CD4 Cells Absolute CD4 Count % CD8 Cells % CD19 Cells Absolute CD19 Count Hep Bs Antibody, Quant Hep B Core Total Ab Hepatitis Be Antigen HIV-1 RNA PCR copies/ml HIV-1 RNA (PCR) log 09/04/17 09/05/17 09/05/17 23:08 05:31 06:00 WBC RBC Hgb Hct MCV MCH RDW Plt Count [place] % (Auto) Seg Neutrophils % Seg Neuts % (Manual) Lymphocytes % (Manual) Nucleated RBC % Seg Neutrophils # Man Lymphocytes # (Manual) PT INR Fibrinogen D-Dimer POC ABG pH 7.226 L POC ABG pCO2 65.4 H POC ABG pO2 61 L Sodium Potassium Chloride 112.7 H Carbon Dioxide BUN 31 H Creatinine Glucose 132 H POC Glucose 109 H Lactic Acid Calcium 7.7 L Phosphorus Magnesium AST 834 H ALT 898 H Lactate Dehydrogenase C-Reactive Protein Total Protein Albumin 1.4 L Lipase Lymph Enumerat CD4/CD8 % CD4 Cells Absolute CD4 Count % CD8 Cells % CD19 Cells Absolute CD19 Count Hep Bs Antibody, Quant Hep B Core Total Ab Hepatitis Be Antigen HIV-1 RNA PCR copies/ml HIV-1 RNA (PCR) log 09/05/17 09/05/17 09/05/17 06:00 06:35 10:26 WBC RBC Hgb Hct MCV MCH RDW Plt Count [place] % (Auto) Seg Neutrophils % Seg Neuts % (Manual) Lymphocytes % (Manual) Nucleated RBC % Seg Neutrophils # Man Lymphocytes # (Manual) PT INR Fibrinogen D-Dimer POC ABG pH 7.311 L POC ABG pCO2 58.5 H POC ABG pO2 213 H Sodium Potassium Chloride Carbon Dioxide BUN Creatinine Glucose POC Glucose 110 H Lactic Acid 4.50 H* Calcium Phosphorus Magnesium AST ALT Lactate Dehydrogenase C-Reactive Protein Total Protein Albumin Lipase Lymph Enumerat CD4/CD8 % CD4 Cells Absolute CD4 Count % CD8 Cells % CD19 Cells Absolute CD19 Count Hep Bs Antibody, Quant Hep B Core Total Ab Hepatitis Be Antigen HIV-1 RNA PCR copies/ml HIV-1 RNA (PCR) log 09/05/17 09/05/17 09/05/17 10:55 10:55 10:55 WBC 11.1 H RBC 3.38 L Hgb 9.3 L Hct 28.7 L MCV MCH RDW 16.7 H Plt Count 118 L [place] % (Auto) Seg Neutrophils % Seg Neuts % (Manual) 92.0 H Lymphocytes % (Manual) 4.0 L Nucleated RBC % 2.0 H Seg Neutrophils # Man 10.2 H Lymphocytes # (Manual) 0.4 L PT INR Fibrinogen D-Dimer POC ABG pH POC ABG pCO2 POC ABG pO2 Sodium Potassium Chloride Carbon Dioxide BUN Creatinine Glucose POC Glucose Lactic Acid 3.60 H* Calcium Phosphorus Magnesium AST ALT Lactate Dehydrogenase 571 H C-Reactive Protein Total Protein Albumin Lipase Lymph Enumerat CD4/CD8 % CD4 Cells Absolute CD4 Count % CD8 Cells % CD19 Cells Absolute CD19 Count Hep Bs Antibody, Quant Hep B Core Total Ab Hepatitis Be Antigen HIV-1 RNA PCR copies/ml HIV-1 RNA (PCR) log 09/05/17 09/05/17 09/05/17 12:05 14:30 14:30 WBC RBC Hgb Hct MCV MCH RDW Plt Count [place] % (Auto) Seg Neutrophils % Seg Neuts % (Manual) Lymphocytes % (Manual) Nucleated RBC % Seg Neutrophils # Man Lymphocytes # (Manual) PT INR Fibrinogen D-Dimer POC ABG pH POC ABG pCO2 POC ABG pO2 Sodium Potassium Chloride Carbon Dioxide BUN Creatinine Glucose POC Glucose 148 H Lactic Acid Calcium Phosphorus Magnesium AST ALT Lactate Dehydrogenase C-Reactive Protein Total Protein Albumin Lipase Lymph Enumerat CD4/CD8 0.10 L % CD4 Cells 7 L Absolute CD4 Count 101 L % CD8 Cells 66 H % CD19 Cells 4 L Absolute CD19 Count 60 L Hep Bs Antibody, Quant Hep B Core Total Ab Hepatitis Be Antigen HIV-1 RNA PCR copies/ml 1750 H HIV-1 RNA (PCR) log 3.24 H 09/05/17 09/05/17 09/05/17 16:30 17:42 19:55 WBC RBC Hgb Hct MCV MCH RDW Plt Count [place] % (Auto) Seg Neutrophils % Seg Neuts % (Manual) Lymphocytes % (Manual) Nucleated RBC % Seg Neutrophils # Man Lymphocytes # (Manual) PT INR Fibrinogen D-Dimer POC ABG pH POC ABG pCO2 POC ABG pO2 Sodium Potassium Chloride Carbon Dioxide BUN Creatinine Glucose POC Glucose 183 H Lactic Acid 3.50 H* 3.60 H* Calcium Phosphorus Magnesium AST ALT Lactate Dehydrogenase C-Reactive Protein Total Protein Albumin Lipase Lymph Enumerat CD4/CD8 % CD4 Cells Absolute CD4 Count % CD8 Cells % CD19 Cells Absolute CD19 Count Hep Bs Antibody, Quant Hep B Core Total Ab Hepatitis Be Antigen HIV-1 RNA PCR copies/ml HIV-1 RNA (PCR) log 09/05/17 09/06/17 09/06/17 23:29 03:58 05:33 WBC RBC Hgb Hct MCV MCH RDW Plt Count [place] % (Auto) Seg Neutrophils % Seg Neuts % (Manual) Lymphocytes % (Manual) Nucleated RBC % Seg Neutrophils # Man Lymphocytes # (Manual) PT INR Fibrinogen D-Dimer POC ABG pH POC ABG pCO2 62.5 H POC ABG pO2 141 H Sodium Potassium Chloride Carbon Dioxide BUN Creatinine Glucose POC Glucose 203 H 207 H Lactic Acid Calcium Phosphorus Magnesium AST ALT Lactate Dehydrogenase C-Reactive Protein Total Protein Albumin Lipase Lymph Enumerat CD4/CD8 % CD4 Cells Absolute CD4 Count % CD8 Cells % CD19 Cells Absolute CD19 Count Hep Bs Antibody, Quant Hep B Core Total Ab Hepatitis Be Antigen HIV-1 RNA PCR copies/ml HIV-1 RNA (PCR) log 09/06/17 09/06/17 09/06/17 06:15 06:15 06:15 WBC RBC 3.26 L Hgb 9.0 L Hct 27.5 L MCV MCH RDW 16.7 H Plt Count 104 L [place] % (Auto) Seg Neutrophils % Seg Neuts % (Manual) 97.0 H Lymphocytes % (Manual) 2.0 L Nucleated RBC % Seg Neutrophils # Man 8.1 H Lymphocytes # (Manual) 0.2 L PT INR Fibrinogen D-Dimer POC ABG pH POC ABG pCO2 POC ABG pO2 Sodium 150 H Potassium Chloride 110.9 H Carbon Dioxide 31 H BUN 34 H Creatinine Glucose 207 H POC Glucose Lactic Acid 2.90 H* Calcium 8.2 L Phosphorus Magnesium AST 346 H ALT 634 H Lactate Dehydrogenase C-Reactive Protein Total Protein Albumin 1.5 L Lipase Lymph Enumerat CD4/CD8 % CD4 Cells Absolute CD4 Count % CD8 Cells % CD19 Cells Absolute CD19 Count Hep Bs Antibody, Quant Hep B Core Total Ab Hepatitis Be Antigen HIV-1 RNA PCR copies/ml HIV-1 RNA (PCR) log 09/06/17 09/06/17 09/06/17 08:03 11:32 18:04 WBC RBC Hgb Hct MCV MCH RDW Plt Count [place] % (Auto) Seg Neutrophils % Seg Neuts % (Manual) Lymphocytes % (Manual) Nucleated RBC % Seg Neutrophils # Man Lymphocytes # (Manual) PT INR Fibrinogen D-Dimer POC ABG pH POC ABG pCO2 POC ABG pO2 Sodium Potassium Chloride Carbon Dioxide BUN Creatinine Glucose POC Glucose 169 H 130 H Lactic Acid 2.90 H* Calcium Phosphorus Magnesium AST ALT Lactate Dehydrogenase C-Reactive Protein Total Protein Albumin Lipase Lymph Enumerat CD4/CD8 % CD4 Cells Absolute CD4 Count % CD8 Cells % CD19 Cells Absolute CD19 Count Hep Bs Antibody, Quant Hep B Core Total Ab Hepatitis Be Antigen HIV-1 RNA PCR copies/ml HIV-1 RNA (PCR) log 09/07/17 09/07/17 09/07/17 00:03 04:13 04:13 WBC RBC Hgb Hct MCV MCH RDW Plt Count [place] % (Auto) Seg Neutrophils % Seg Neuts % (Manual) Lymphocytes % (Manual) Nucleated RBC % Seg Neutrophils # Man Lymphocytes # (Manual) PT INR Fibrinogen D-Dimer POC ABG pH POC ABG pCO2 POC ABG pO2 Sodium 152 H Potassium 3.5 L Chloride 114.9 H Carbon Dioxide 34 H BUN 35 H Creatinine Glucose 149 H POC Glucose 123 H Lactic Acid Calcium Phosphorus Magnesium AST 150 H ALT 381 H Lactate Dehydrogenase C-Reactive Protein Total Protein Albumin 1.3 L Lipase Lymph Enumerat CD4/CD8 % CD4 Cells Absolute CD4 Count % CD8 Cells % CD19 Cells Absolute CD19 Count Hep Bs Antibody, Quant Hep B Core Total Ab Reactive H Hepatitis Be Antigen HIV-1 RNA PCR copies/ml HIV-1 RNA (PCR) log 09/07/17 09/07/17 09/07/17 04:13 04:13 04:33 WBC RBC Hgb Hct MCV MCH RDW Plt Count [place] % (Auto) Seg Neutrophils % Seg Neuts % (Manual) Lymphocytes % (Manual) Nucleated RBC % Seg Neutrophils # Man Lymphocytes # (Manual) PT INR Fibrinogen D-Dimer POC ABG pH 7.590 H POC ABG pCO2 POC ABG pO2 179 H Sodium Potassium Chloride Carbon Dioxide BUN Creatinine Glucose POC Glucose Lactic Acid Calcium Phosphorus Magnesium AST ALT Lactate Dehydrogenase C-Reactive Protein Total Protein Albumin Lipase Lymph Enumerat CD4/CD8 % CD4 Cells Absolute CD4 Count % CD8 Cells % CD19 Cells Absolute CD19 Count Hep Bs Antibody, Quant <5 L Hep B Core Total Ab Hepatitis Be Antigen Reactive H HIV-1 RNA PCR copies/ml HIV-1 RNA (PCR) log 09/07/17 09/07/17 09/07/17 05:05 08:20 11:34 WBC 11.9 H RBC 3.11 L Hgb 8.4 L Hct 26.0 L MCV MCH 27 L RDW 16.2 H Plt Count 109 L [place] % (Auto) Seg Neutrophils % Seg Neuts % (Manual) 93.0 H Lymphocytes % (Manual) 1.0 L Nucleated RBC % Seg Neutrophils # Man 11.1 H Lymphocytes # (Manual) 0.1 L PT INR Fibrinogen D-Dimer POC ABG pH POC ABG pCO2 POC ABG pO2 Sodium Potassium Chloride Carbon Dioxide BUN Creatinine Glucose POC Glucose 168 H 156 H Lactic Acid Calcium Phosphorus Magnesium AST ALT Lactate Dehydrogenase C-Reactive Protein Total Protein Albumin Lipase Lymph Enumerat CD4/CD8 % CD4 Cells Absolute CD4 Count % CD8 Cells % CD19 Cells Absolute CD19 Count Hep Bs Antibody, Quant Hep B Core Total Ab Hepatitis Be Antigen HIV-1 RNA PCR copies/ml HIV-1 RNA (PCR) log 09/07/17 09/07/17 09/07/17 18:13 20:14 20:14 WBC 14.6 H RBC 3.36 L Hgb 9.2 L Hct 28.3 L MCV MCH 27 L RDW 16.1 H Plt Count 120 L [place] % (Auto) Seg Neutrophils % Seg Neuts % (Manual) 93.0 H Lymphocytes % (Manual) 2.0 L Nucleated RBC % Seg Neutrophils # Man 13.6 H Lymphocytes # (Manual) 0.3 L PT INR Fibrinogen D-Dimer POC ABG pH POC ABG pCO2 POC ABG pO2 Sodium 154 H Potassium 3.4 L Chloride 114.7 H Carbon Dioxide 34 H BUN 37 H Creatinine Glucose 131 H POC Glucose 136 H Lactic Acid Calcium Phosphorus Magnesium AST ALT Lactate Dehydrogenase C-Reactive Protein Total Protein Albumin Lipase Lymph Enumerat CD4/CD8 % CD4 Cells Absolute CD4 Count % CD8 Cells % CD19 Cells Absolute CD19 Count Hep Bs Antibody, Quant Hep B Core Total Ab Hepatitis Be Antigen HIV-1 RNA PCR copies/ml HIV-1 RNA (PCR) log 09/08/17 09/08/17 09/08/17 05:15 05:30 05:30 WBC 13.6 H RBC 3.29 L Hgb 9.1 L Hct 27.4 L MCV 83 L MCH RDW 15.8 H Plt Count 111 L [place] % (Auto) Seg Neutrophils % Seg Neuts % (Manual) 94.0 H Lymphocytes % (Manual) 4.0 L Nucleated RBC % 1.0 H Seg Neutrophils # Man 12.8 H Lymphocytes # (Manual) 0.5 L PT INR Fibrinogen D-Dimer POC ABG pH 7.460 H POC ABG pCO2 54.7 H POC ABG pO2 209 H Sodium Potassium Chloride Carbon Dioxide BUN Creatinine Glucose POC Glucose Lactic Acid Calcium Phosphorus Magnesium AST ALT Lactate Dehydrogenase C-Reactive Protein 8.70 H Total Protein Albumin Lipase Lymph Enumerat CD4/CD8 % CD4 Cells Absolute CD4 Count % CD8 Cells % CD19 Cells Absolute CD19 Count Hep Bs Antibody, Quant Hep B Core Total Ab Hepatitis Be Antigen HIV-1 RNA PCR copies/ml HIV-1 RNA (PCR) log 09/08/17 09/08/17 09/08/17 05:30 12:24 17:19 WBC RBC Hgb Hct MCV MCH RDW Plt Count [place] % (Auto) Seg Neutrophils % Seg Neuts % (Manual) Lymphocytes % (Manual) Nucleated RBC % Seg Neutrophils # Man Lymphocytes # (Manual) PT INR Fibrinogen D-Dimer POC ABG pH POC ABG pCO2 POC ABG pO2 Sodium 154 H Potassium Chloride 114.3 H Carbon Dioxide 36 H BUN 39 H Creatinine Glucose 163 H POC Glucose 181 H 170 H Lactic Acid Calcium Phosphorus Magnesium AST ALT Lactate Dehydrogenase C-Reactive Protein Total Protein Albumin Lipase Lymph Enumerat CD4/CD8 % CD4 Cells Absolute CD4 Count % CD8 Cells % CD19 Cells Absolute CD19 Count Hep Bs Antibody, Quant Hep B Core Total Ab Hepatitis Be Antigen HIV-1 RNA PCR copies/ml HIV-1 RNA (PCR) log 09/08/17 09/09/17 09/09/17 23:51 04:00 04:00 WBC 20.1 H RBC 3.37 L Hgb 9.2 L Hct 28.0 L MCV 83 L MCH 27 L RDW 15.7 H Plt Count 123 L [place] % (Auto) Seg Neutrophils % Seg Neuts % (Manual) 86.0 H Lymphocytes % (Manual) 9.0 L Nucleated RBC % Seg Neutrophils # Man 17.3 H Lymphocytes # (Manual) PT INR Fibrinogen D-Dimer POC ABG pH POC ABG pCO2 POC ABG pO2 Sodium 150 H Potassium 3.0 L Chloride 107.7 H Carbon Dioxide 35 H BUN 39 H Creatinine Glucose 174 H POC Glucose 185 H Lactic Acid Calcium Phosphorus Magnesium AST ALT Lactate Dehydrogenase C-Reactive Protein Total Protein Albumin Lipase Lymph Enumerat CD4/CD8 % CD4 Cells Absolute CD4 Count % CD8 Cells % CD19 Cells Absolute CD19 Count Hep Bs Antibody, Quant Hep B Core Total Ab Hepatitis Be Antigen HIV-1 RNA PCR copies/ml HIV-1 RNA (PCR) log 09/09/17 09/09/17 09/09/17 04:34 05:57 12:04 WBC RBC Hgb Hct MCV MCH RDW Plt Count [place] % (Auto) Seg Neutrophils % Seg Neuts % (Manual) Lymphocytes % (Manual) Nucleated RBC % Seg Neutrophils # Man Lymphocytes # (Manual) PT INR Fibrinogen D-Dimer POC ABG pH 7.575 H POC ABG pCO2 POC ABG pO2 63 L Sodium Potassium Chloride Carbon Dioxide BUN Creatinine Glucose POC Glucose 170 H 126 H Lactic Acid Calcium Phosphorus Magnesium AST ALT Lactate Dehydrogenase C-Reactive Protein Total Protein Albumin Lipase Lymph Enumerat CD4/CD8 % CD4 Cells Absolute CD4 Count % CD8 Cells % CD19 Cells Absolute CD19 Count Hep Bs Antibody, Quant Hep B Core Total Ab Hepatitis Be Antigen HIV-1 RNA PCR copies/ml HIV-1 RNA (PCR) log 09/09/17 09/10/17 09/10/17 17:31 00:02 03:46 WBC RBC Hgb Hct MCV MCH RDW Plt Count [place] % (Auto) Seg Neutrophils % Seg Neuts % (Manual) Lymphocytes % (Manual) Nucleated RBC % Seg Neutrophils # Man Lymphocytes # (Manual) PT INR Fibrinogen D-Dimer POC ABG pH 7.529 H POC ABG pCO2 45.6 H POC ABG pO2 69 L Sodium Potassium Chloride Carbon Dioxide BUN Creatinine Glucose POC Glucose 180 H 190 H Lactic Acid Calcium Phosphorus Magnesium AST ALT Lactate Dehydrogenase C-Reactive Protein Total Protein Albumin Lipase Lymph Enumerat CD4/CD8 % CD4 Cells Absolute CD4 Count % CD8 Cells % CD19 Cells Absolute CD19 Count Hep Bs Antibody, Quant Hep B Core Total Ab Hepatitis Be Antigen HIV-1 RNA PCR copies/ml HIV-1 RNA (PCR) log 09/10/17 09/10/17 09/10/17 04:44 04:50 06:19 WBC 21.7 H RBC 3.32 L Hgb 9.2 L Hct 28.0 L MCV MCH RDW 15.3 H Plt Count [place] % (Auto) Seg Neutrophils % Seg Neuts % (Manual) 96.0 H Lymphocytes % (Manual) 4.0 L Nucleated RBC % Seg Neutrophils # Man 20.8 H Lymphocytes # (Manual) 0.9 L PT INR Fibrinogen D-Dimer POC ABG pH POC ABG pCO2 POC ABG pO2 Sodium 149 H Potassium Chloride 109.8 H Carbon Dioxide 36 H BUN 34 H Creatinine 0.7 L Glucose 139 H POC Glucose 154 H Lactic Acid Calcium Phosphorus Magnesium AST ALT Lactate Dehydrogenase C-Reactive Protein Total Protein Albumin Lipase Lymph Enumerat CD4/CD8 % CD4 Cells Absolute CD4 Count % CD8 Cells % CD19 Cells Absolute CD19 Count Hep Bs Antibody, Quant Hep B Core Total Ab Hepatitis Be Antigen HIV-1 RNA PCR copies/ml HIV-1 RNA (PCR) log 09/10/17 09/10/17 09/10/17 11:58 17:15 23:24 WBC RBC Hgb Hct MCV MCH RDW Plt Count [place] % (Auto) Seg Neutrophils % Seg Neuts % (Manual) Lymphocytes % (Manual) Nucleated RBC % Seg Neutrophils # Man Lymphocytes # (Manual) PT INR Fibrinogen D-Dimer POC ABG pH POC ABG pCO2 POC ABG pO2 Sodium Potassium Chloride Carbon Dioxide BUN Creatinine Glucose POC Glucose 204 H 193 H 177 H Lactic Acid Calcium Phosphorus Magnesium AST ALT Lactate Dehydrogenase C-Reactive Protein Total Protein Albumin Lipase Lymph Enumerat CD4/CD8 % CD4 Cells Absolute CD4 Count % CD8 Cells % CD19 Cells Absolute CD19 Count Hep Bs Antibody, Quant Hep B Core Total Ab Hepatitis Be Antigen HIV-1 RNA PCR copies/ml HIV-1 RNA (PCR) log 09/11/17 09/11/17 09/11/17 04:03 05:39 06:00 WBC 15.9 H RBC 2.93 L Hgb 7.9 L Hct 24.9 L MCV MCH 27 L RDW 15.6 H Plt Count [place] % (Auto) Seg Neutrophils % Seg Neuts % (Manual) 99.0 H Lymphocytes % (Manual) 0 L Nucleated RBC % Seg Neutrophils # Man 15.7 H Lymphocytes # (Manual) 0.0 L PT INR Fibrinogen D-Dimer POC ABG pH 7.572 H POC ABG pCO2 POC ABG pO2 113 H Sodium Potassium Chloride Carbon Dioxide BUN Creatinine Glucose POC Glucose 144 H Lactic Acid Calcium Phosphorus Magnesium AST ALT Lactate Dehydrogenase C-Reactive Protein Total Protein Albumin Lipase Lymph Enumerat CD4/CD8 % CD4 Cells Absolute CD4 Count % CD8 Cells % CD19 Cells Absolute CD19 Count Hep Bs Antibody, Quant Hep B Core Total Ab Hepatitis Be Antigen HIV-1 RNA PCR copies/ml HIV-1 RNA (PCR) log 09/11/17 06:00 WBC RBC Hgb Hct MCV MCH RDW Plt Count [place] % (Auto) Seg Neutrophils % Seg Neuts % (Manual) Lymphocytes % (Manual) Nucleated RBC % Seg Neutrophils # Man Lymphocytes # (Manual) PT INR Fibrinogen D-Dimer POC ABG pH POC ABG pCO2 POC ABG pO2 Sodium Potassium Chloride 108.1 H Carbon Dioxide BUN 30 H Creatinine 0.6 L Glucose 132 H POC Glucose Lactic Acid Calcium 7.4 L D Phosphorus Magnesium AST ALT Lactate Dehydrogenase C-Reactive Protein Total Protein Albumin Lipase Lymph Enumerat CD4/CD8 % CD4 Cells Absolute CD4 Count % CD8 Cells % CD19 Cells Absolute CD19 Count Hep Bs Antibody, Quant Hep B Core Total Ab Hepatitis Be Antigen HIV-1 RNA PCR copies/ml HIV-1 RNA (PCR) log
[2017-09-11] MEDS: LASIX IV SCH (11:27)
--- NOTE | 2017-09-11 13:05 | Progress Note ---
Assessment and Plan Assessment: 1) Severe Sepsis with septic shock: improving. Etiology most likely E coli septicemia and pneumonia. -CRP 22.30. -Lactic acid better as of 09/06. -Off levophed. -Afebrile. -Leukocytosis down - On solumedrol. 2) E. coli septicemia: unknown source ? Pneumonia ? UTI (UCx negative) ? GI -Blood cultures 09/01 positive 4 of 4 bottles. E coli sens to cefepime/zosyn -Repeat Blood cultures 09/04 negative. -TTE 09/02 no vegetations. 3) Bilateral pneumonia: recently treated at [facility]. -Tracheal asp with normal fiordaliza. - CT chest 09/02 with extensive bilateral pulmonary opacities due to edema vs PNA. Also component of atelectasis. Bilateral pleural effusions. - Legionella and Strep pneumo ag in urine negative - On bactrim and steroids since 09/05. -PJP DFA negative 4) Acute respiratory failure. Intubated. From pneumonia +/- CHF 5) HIV/AIDS, poorly compliant with HAART for past > 1 year per [facility]; last CD4 per [facility] was 133. [id number] on 08/26/17 -RPR neg 6) Abnormal CT A/P with numerous liver lesions suspicious for metastatic liver disease, moderate ascites, possible partial vein thrombosis. 7) Encephalopathy. 8) Transaminitis. Could be due to shock liver. Improved. ?hep B. -Hep B Surface ag positive, HBVe antigen positive, HBV core total ab positive -Hep C negative 9) Acute Thrombocytopenia. Improved. 10) Low EF Plan: -repeat CT chest, abd pelvis - pending -needs trach/PEG -continue cefepime day 10 of 14 -continue fluconazole day 6 of 10 -continue bactrim DS 1 tab qday for prophylaxis -continue azithromycin 1200 mg qweek for prophylaxis -Will f/u genotype, HLA [id number], quantiferon, hep B viral load. -Will f/u fungal blood cultures, AFB blood cultures Eduarda Rolon MD Infectious Diseases Specialist [facility] M [phone] O [phone] Subjective Date of service: 09/11/17 Principal diagnosis: Septic shock, acute hypoxemic respiratory failure, [place] Interval history: Remains intubated fio2 35%, p8. Afebrile. Off levophed Microbiology: Blood cultures: 09/01 E coli x 4 bottles 09/04 Neg 09/06 ngtd Fungal blood culture: 09/06 pending Urine cultures: 09/02 Neg Respiratory cultures: TA 09/02 normal fiordaliza Crypto ag in serum negative Current Antimicrobials: Meropenem 09/02- Fluconazole 09/03- Vanco 09/02- Bactrim 09/05- Azithromycin 09/06- Solumedrol 09/05- Previous Antimicrobials: Zosyn 09/02 Azithro 09/02 Objective - Constitutional Vitals: Vital Signs Temp Pulse Resp BP Pulse Ox 97.9 F 78 17 107/57 94 09/11/17 12:00 09/11/17 12:00 09/11/17 12:00 09/11/17 12:00 09/11/17 12:00 Temperature -Last 24 Hours Temperature 97.9 F Temperature 97.8 F Temperature 98.8 F Temperature 99.1 F Temperature 97.9 F Temperature 98.5 F - Labs CBC & Chem 7: 09/11/17 06:00 09/11/17 06:00 Labs: Abnormal lab results 09/10/17 09/10/17 09/11/17 Range/Units 17:15 23:24 04:03 WBC (4.5-11.0) K/mm3 RBC (3.65-5.03) M/mm3 Hgb (11.8-15.2) gm/dl Hct (35.5-45.6) % MCH (28-32) pg RDW (13.2-15.2) % Seg Neuts % (Manual) (40.0-70.0) % Lymphocytes % (Manual) (13.4-35.0) % Seg Neutrophils # Man (1.8-7.7) K/mm3 Lymphocytes # (Manual) (1.2-5.4) K/mm3 POC ABG pH 7.572 H (7.35-7.45) POC ABG pO2 113 H (80-105) Chloride (98-107) mmol/L BUN (9-20) mg/dL Creatinine (0.8-1.5) mg/dL Glucose (75-100) mg/dL POC Glucose 193 H 177 H (70-105) Calcium (8.4-10.2) mg/dL 09/11/17 09/11/17 09/11/17 Range/Units 05:39 06:00 06:00 WBC 15.9 H (4.5-11.0) K/mm3 RBC 2.93 L (3.65-5.03) M/mm3 Hgb 7.9 L (11.8-15.2) gm/dl Hct 24.9 L (35.5-45.6) % MCH 27 L (28-32) pg RDW 15.6 H (13.2-15.2) % Seg Neuts % (Manual) 99.0 H (40.0-70.0) % Lymphocytes % (Manual) 0 L (13.4-35.0) % Seg Neutrophils # Man 15.7 H (1.8-7.7) K/mm3 Lymphocytes # (Manual) 0.0 L (1.2-5.4) K/mm3 POC ABG pH (7.35-7.45) POC ABG pO2 (80-105) Chloride 108.1 H (98-107) mmol/L BUN 30 H (9-20) mg/dL Creatinine 0.6 L (0.8-1.5) mg/dL Glucose 132 H (75-100) mg/dL POC Glucose 144 H (70-105) Calcium 7.4 L D (8.4-10.2) mg/dL 09/11/17 Range/Units 11:48 WBC (4.5-11.0) K/mm3 RBC (3.65-5.03) M/mm3 Hgb (11.8-15.2) gm/dl Hct (35.5-45.6) % MCH (28-32) pg RDW (13.2-15.2) % Seg Neuts % (Manual) (40.0-70.0) % Lymphocytes % (Manual) (13.4-35.0) % Seg Neutrophils # Man (1.8-7.7) K/mm3 Lymphocytes # (Manual) (1.2-5.4) K/mm3 POC ABG pH (7.35-7.45) POC ABG pO2 (80-105) Chloride (98-107) mmol/L BUN (9-20) mg/dL Creatinine (0.8-1.5) mg/dL Glucose (75-100) mg/dL POC Glucose 179 H (70-105) Calcium (8.4-10.2) mg/dL
[2017-09-11] MEDS ORDERED: NACL 0.9% 500 ML 500 ML ONE (18:41)
--- NOTE | 2017-09-11 19:24 | Cat Scan Report ---
FINAL REPORT PROCEDURE: CT CHEST W CON TECHNIQUE: Computerized axial tomography of the chest was performed during the IV injection of iodinated nonionic contrast. HISTORY: persistent septic shock eval ... COMPARISON: 09/09/2017 TECHNICAL QUALITY: Satisfactory. FINDINGS: Large right and moderate to large left pleural effusions with patchy atelectasis lower lung zones right greater than left and lingula. Hazy mixed interstitial alveolar areas aerated lungs. Upper abdomen nonspecific. Enlarged liver and spleen. Heart top normal in size. Inconclusive to exclude lymph nodes. Stable small cysts in the thyroid. Endotracheal tube above the bifurcation. NG tube along the esophagus. No large or central PE on limited study inhibited by motion artifact and crowding of vessels at the mid and distal lungs preclude ability to exclude small to medium sized PE in the mid and distal branches. Patchy airspace disease right upper anterior lung zone. Sub centimeter lytic or cystic area posterior aspect upper lumbar spine IMPRESSION: Large right and moderate to large left pleural effusion with atelectasis and patchy infiltrates.
--- NOTE | 2017-09-11 19:31 | Cat Scan Report ---
FINAL REPORT PROCEDURE: CT ABDOMEN PELVIS W CON TECHNIQUE: Computerized axial tomography of the abdomen and pelvis was performed after the IV injection of iodinated nonionic contrast. HISTORY: persistent septic shock eval ... COMPARISON: CT chest with contrast FINDINGS: Visualized lower thorax: Bilateral pleural effusions moderate to large on the right and moderate on the left Liver: Fatty infiltration of liver with mixed attenuated lesion in the right mid lateral liver 2 centimeters may reflect hemangioma. Further workup is advised. Spleen: Normal size and attenuation. Gallbladder and biliary system: Normal. Pancreas: Normal. Adrenals: Normal. Kidneys: Normal. GI tract: NG tube directed towards antrum of the stomach. Moderate stool density throughout the large bowel. Probable normal caliber appendix. Moderate stool volume rectum. Lymph nodes and mesentery: Normal. Vasculature: Normal. Bladder: Quach balloon catheter in the bladder. Reproductive organs: Normal. Peritoneum: Ascites in the pelvis abdomen flanks upper abdomen. Musculoskeletal structures: No significant abnormality. Other: Soft tissue swelling of the somatic tissues. IMPRESSION: Moderate ascites. Anasarca
[2017-09-12] MEDS: NOVOLOG SUB-Q SCH ×3 (00:49→17:57)
[2017-09-12] MEDS: fentaNYL DRIP Premix 2,000 MCG/100 ML BAG IV SCH ×2 (02:18→14:15)
[2017-09-12] MEDS: DUONEB *Not for PRN Use IH SCH ×4 (02:37→21:30)
--- NOTE | 2017-09-12 09:06 | Progress Note ---
Assessment and Plan Assessment and plan: 52-year-old male presents to the emergency department with complaint of shortness of breath and some midsternal right-sided chest discomfort with inspiration that started earlier this afternoon and radiates towards the back. The patient was just discharged from the [facility] a few days ago after spending some time therefore bilateral pneumonia. He is on Bactrim and just finished a course of antifungal medication for oral thrush. He denies any past medical history other than this pneumonia. He does not smoke or use illicit drugs. His physicians are through the [facility]. Patient was recently discharged from a 6 day hospital stay at the [facility]. He denies any leg swelling, nausea, vomiting or fever. * Septic shock due to underlying pneumonia * Pneumonia bacteria - Ramón neg rods, Gram Negative bacteremia, also concern for PJP * Acute hypoxemic respiratory failure intubated 09/01/17, on MV >96 hours * Hyperkalemia - corrected * Anemia of chronic disease * Hypernatremia * multiple liver masses suspicious for metastatic disease * Portal vein thrombosis? 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 The aggregate critical care time was [44] minutes. This time is in addition to time spent performing reported procedures but includes the following: [] Data Review and interpretation [] Patient assessment and monitoring of vital signs [] Documentation [] Medication orders and management History Interval history: remains intubated and sedated remains pressor dependent Hospitalist Physical - Physical exam Narrative exam: General appearance: Present: no acute distress, well-nourished, other (intubated ) - EENT Eyes: Present: PERRL ENT: clear oral mucosa - Neck Neck: Present: supple - Respiratory Respiratory effort: labored Respiratory: bilateral: rales - Cardiovascular Rhythm: regular Heart Sounds: Present: S1 & S2 - Extremities Extremities: no ischemia Peripheral Pulses: within normal limits - Abdominal General gastrointestinal: soft, non-distended - Integumentary Integumentary: Present: clear, warm, dry - Psychiatric Psychiatric: other (intubated/sedated) - Neurologic Neurologic: other (intubated/sedated) - Constitutional Vitals: Temp Pulse Resp BP Pulse Ox 97.2 F L 58 L 16 91/53 99 09/12/17 00:00 09/12/17 07:15 09/12/17 07:15 09/12/17 07:15 09/12/17 07:15 General appearance: Present: no acute distress, well-nourished, other (intubated ) Results - Labs CBC & Chem 7: 09/11/17 06:00 09/11/17 06:00 Labs: Laboratory Last Values WBC 15.9 K/mm3 (4.5-11.0) H 09/11/17 06:00 RBC 2.93 M/mm3 (3.65-5.03) L 09/11/17 06:00 Hgb 7.9 gm/dl (11.8-15.2) L 09/11/17 06:00 Hct 24.9 % (35.5-45.6) L 09/11/17 06:00 MCV 85 fl (84-94) 09/11/17 06:00 MCH 27 pg (28-32) L 09/11/17 06:00 MCHC 32 % (32-34) 09/11/17 06:00 RDW 15.6 % (13.2-15.2) H 09/11/17 06:00 Plt Count 147 K/mm3 (140-440) 09/11/17 06:00 Harlan % (Auto) 12.6 % (0.0-7.3) H 09/02/17 07:36 Eos % (Auto) 0.3 % (0.0-4.3) 09/02/17 07:36 Harlan # 0.4 K/mm3 (0.0-0.8) 09/02/17 07:36 Eos # 0.0 K/mm3 (0.0-0.4) 09/02/17 07:36 Baso # 0.0 K/mm3 (0.0-0.1) 09/02/17 07:36 Add Manual Diff Complete 09/11/17 06:00 Total Counted 100 09/11/17 06:00 Seg Neutrophils % Culinary Arts Teacher 09/11/17 06:00 Seg Neuts % (Manual) 99.0 % (40.0-70.0) H 09/11/17 06:00 Band Neutrophils % 0 % 09/11/17 06:00 Lymphocytes % (Manual) 0 % (13.4-35.0) L 09/11/17 06:00 Reactive Lymphs % (Man) 0 % 09/11/17 06:00 Monocytes % (Manual) 1.0 % (0.0-7.3) 09/11/17 06:00 Eosinophils % (Manual) 0 % (0.0-4.3) 09/11/17 06:00 Basophils % (Manual) 0 % (0.0-1.8) 09/11/17 06:00 Metamyelocytes % 0 % 09/11/17 06:00 Myelocytes % 0 % 09/11/17 06:00 Promyelocytes % 0 % 09/11/17 06:00 Blast Cells % 0 % 09/11/17 06:00 Nucleated RBC % Not Reportable 09/11/17 06:00 Seg Neutrophils # 2.1 K/mm3 (1.8-7.7) 09/02/17 07:36 Seg Neutrophils # Man 15.7 K/mm3 (1.8-7.7) H 09/11/17 06:00 Band Neutrophils # 0.0 K/mm3 09/11/17 06:00 Abs Lymphs (Manual) 1470 cells/uL (850-3900) 09/05/17 14:30 Lymphocytes # (Manual) 0.0 K/mm3 (1.2-5.4) L 09/11/17 06:00 Abs React Lymphs (Man) 0.0 K/mm3 09/11/17 06:00 Monocytes # (Manual) 0.2 K/mm3 (0.0-0.8) 09/11/17 06:00 Eosinophils # (Manual) 0.0 K/mm3 (0.0-0.4) 09/11/17 06:00 Basophils # (Manual) 0.0 K/mm3 (0.0-0.1) 09/11/17 06:00 Metamyelocytes # 0.0 K/mm3 09/11/17 06:00 Myelocytes # 0.0 K/mm3 09/11/17 06:00 Promyelocytes # 0.0 K/mm3 09/11/17 06:00 Blast Cells # 0.0 K/mm3 09/11/17 06:00 WBC Morphology Not Reportable 09/11/17 06:00 Hypersegmented Neuts Not Reportable 09/11/17 06:00 Hyposegmented Neuts Not Reportable 09/11/17 06:00 Hypogranular Neuts Not Reportable 09/11/17 06:00 Smudge Cells Not Reportable 09/11/17 06:00 Toxic Granulation Not Reportable 09/11/17 06:00 Toxic Vacuolation Not Reportable 09/11/17 06:00 Dohle Bodies Not Reportable 09/11/17 06:00 Pelger-Huet Anomaly Not Reportable 09/11/17 06:00 Efren Rods Not Reportable 09/11/17 06:00 Platelet Estimate Cons 09/11/17 06:00 Clumped Platelets Not Reportable 09/11/17 06:00 Plt Clumps, EDTA Not Reportable 09/11/17 06:00 Large Platelets Few 09/11/17 06:00 Giant Platelets Not Reportable 09/11/17 06:00 Platelet Satelliting Not Reportable 09/11/17 06:00 Plt Morphology Comment Not Reportable 09/11/17 06:00 RBC Morphology Not Reportable 09/11/17 06:00 Dimorphic RBCs Not Reportable 09/11/17 06:00 Polychromasia Not Reportable 09/11/17 06:00 Hypochromasia Not Reportable 09/11/17 06:00 Poikilocytosis Not Reportable 09/11/17 06:00 Anisocytosis 1+ 09/11/17 06:00 Microcytosis Not Reportable 09/11/17 06:00 Macrocytosis Not Reportable 09/11/17 06:00 Spherocytes Not Reportable 09/11/17 06:00 Pappenheimer Bodies Not Reportable 09/11/17 06:00 Sickle Cells Not Reportable 09/11/17 06:00 Target Cells Not Reportable 09/11/17 06:00 Tear Drop Cells Not Reportable 09/11/17 06:00 Ovalocytes Not Reportable 09/11/17 06:00 Helmet Cells Not Reportable 09/11/17 06:00 [place] Bodies Not Reportable 09/11/17 06:00 [place] Rings Not Reportable 09/11/17 06:00 [place] Cells Not Reportable 09/11/17 06:00 Bite Cells Not Reportable 09/11/17 06:00 Crenated Cell Not Reportable 09/11/17 06:00 Elliptocytes Not Reportable 09/11/17 06:00 Acanthocytes (Spur) Not Reportable 09/11/17 06:00 Rouleaux Not Reportable 09/11/17 06:00 Hemoglobin C Crystals Not Reportable 09/11/17 06:00 Schistocytes Not Reportable 09/11/17 06:00 Malaria parasites Not Reportable 09/11/17 06:00 Scott Bodies Not Reportable 09/11/17 06:00 Hem Pathologist Commnt No 09/11/17 06:00 PT 28.4 Sec. (12.2-14.9) H 09/04/17 04:00 INR 2.47 (0.87-1.13) H 09/04/17 04:00 APTT 35.4 Sec. (24.2-36.6) 09/02/17 07:36 Fibrinogen 611 mg/dl (211-480) H 09/04/17 17:23 D-Dimer 976.43 ng/mlDDU (0-234) H 09/01/17 23:27 POC ABG pH 7.439 (7.35-7.45) 09/12/17 04:24 POC ABG pCO2 53.5 (35-45) H 09/12/17 04:24 POC ABG pO2 79 (80-105) L 09/12/17 04:24 POC ABG HCO3 36.2 09/12/17 04:24 POC ABG Total CO2 38 09/12/17 04:24 POC ABG O2 Sat 96 09/12/17 04:24 POC ABG Base Excess 12 09/12/17 04:24 FiO2 30 % 09/12/17 04:24 Sodium 142 mmol/L (137-145) 09/11/17 06:00 Potassium 3.8 mmol/L (3.6-5.0) 09/11/17 06:00 Chloride 108.1 mmol/L (98-107) H 09/11/17 06:00 Carbon Dioxide 28 mmol/L (22-30) D 09/11/17 06:00 Anion Gap 10 mmol/L 09/11/17 06:00 BUN 30 mg/dL (9-20) H 09/11/17 06:00 Creatinine 0.6 mg/dL (0.8-1.5) L 09/11/17 06:00 Estimated GFR > 60 ml/min 09/11/17 06:00 BUN/Creatinine Ratio 50 % 09/11/17 06:00 Glucose 132 mg/dL (75-100) H 09/11/17 06:00 POC Glucose 164 (70-105) H 09/12/17 00:22 Lactic Acid 2.90 mmol/L (0.7-2.0) H* 09/06/17 08:03 Calcium 7.4 mg/dL (8.4-10.2) L D 09/11/17 06:00 Phosphorus 2.70 mg/dL (2.5-4.5) 09/10/17 04:50 Magnesium 1.80 mg/dL (1.7-2.3) 09/10/17 04:50 Total Bilirubin 0.30 mg/dL (0.1-1.2) 09/07/17 04:13 AST 150 units/L (5-40) H 09/07/17 04:13 ALT 381 units/L (7-56) H 09/07/17 04:13 Alkaline Phosphatase 103 units/L (35-129) 09/07/17 04:13 Lactate Dehydrogenase 571 units/L (91-180) H 09/05/17 10:55 Troponin T < 0.010 ng/mL (0.00-0.029) 09/01/17 23:27 C-Reactive Protein 8.70 mg/dL (0.00-1.30) H 09/08/17 05:30 NT-Pro-B Natriuret Pep 315.2 pg/mL (0-900) 09/01/17 23:27 Total Protein 7.0 g/dL (6.3-8.2) 09/07/17 04:13 Albumin 1.3 g/dL (3.9-5) L 09/07/17 04:13 Albumin/Globulin Ratio 0.2 % 09/07/17 04:13 Lipase 12 units/L (13-60) L 09/04/17 17:23 Vancomycin Trough 15.3 ug/mL (5.0-20.0) 09/04/17 17:23 Lymph Enumerat CD4/CD8 0.10 (0.86-5.00) L 09/05/17 14:30 % CD3 Cells 75 % (57-85) 09/05/17 14:30 Absolute CD3 Count 1105 cells/uL (840-3060) 09/05/17 14:30 % CD4 Cells 7 % (30-61) L 09/05/17 14:30 Absolute CD4 Count 101 cells/uL (490-1740) L 09/05/17 14:30 % CD8 Cells 66 % (12-42) H 09/05/17 14:30 Absolute CD8 Count 986 cells/uL (180-1170) 09/05/17 14:30 % CD19 Cells 4 % (6-29) L 09/05/17 14:30 Absolute CD19 Count 60 cells/uL (110-660) L 09/05/17 14:30 RPR Nonreactive (Nonreactive) 09/07/17 04:13 Hepatitis A IgM Ab Non-reactive (NonReactive) 09/05/17 10:55 Hep Bs Antigen Reactive (Negative) 09/05/17 10:55 Hep Bs Antibody, Quant <5 mIU/mL (>=10) L 09/07/17 04:13 Hep B Core Total Ab Reactive (Nonreactive) H 09/07/17 04:13 Hep B Core IgM Ab Non-reactive (NonReactive) 09/05/17 10:55 Hepatitis Be Antibody Nonreactive 09/07/17 04:13 Hepatitis Be Antigen Reactive H 09/07/17 04:13 Hepatitis C Antibody Non-reactive (NonReactive) 09/05/17 10:55 HIV-1 RNA PCR copies/ml 1750 Copies/mL H 09/05/17 14:30 HIV-1 RNA (PCR) log 3.24 Log cps/mL H 09/05/17 14:30 HIV-1 Genotyping see below 09/05/17 14:30 HIV 1&2 Antibody Rapid Reactive (Non React) 09/02/17 19:34 HIV P24 Antigen Non react (Non React) 09/02/17 19:34 Urine Legionella Ag Not detected (Not Detected) 09/02/17 13:55 TB (QFT) Gold In Tube Negative (Negative) 09/05/17 14:30 TB Test (QFT) Nil 0.04 IU/mL 09/05/17 14:30 TB Test Mitogen - Nil 2.28 IU/mL 09/05/17 14:30 TB Test Antigen - Nil 0.00 IU/mL 09/05/17 14:30 Miscellaneous Test Flexitest 1 09/06/17 11:30
--- NOTE | 2017-09-12 10:05 | Progress Note ---
Assessment and Plan 52 y/o male, vet, admitted with acute respiratory failure thought secondary to pneumonia with lactic acidosis, found to have newly diagnosed HIV being treated empirically for PJP and with systolic heart failure 1. Discussed with sister at bedside. Patient is not . Has one adult son. Will discuss with him either via phone or in person the need for tracheostomy. Will need peg placement as well. Has been intubated now for about 8-9 days. Will likely need trach 2. Abx therapy per ID 3. CT of chest shows bilateral effusion. oxygenation is stable. Hold on lasix therapy for now. 4. Will stop D5W. 5. EF seen on echo was 20-25%. Has been on daily lasix. RN concerned this am. Will hold this am dose of lasix. FiO2 at 30% and PaO2 this am was good. will eval abdomen with ultrasound to see if enough fluid to tap. 6. Continue feeds as tolerated 7. Overall prognosis is guarded to poor. 8. Stop D5 drip. 9. Continue free water flushes CCT 31 minutes. Subjective Date of service: 09/12/17 Principal diagnosis: Septic shock, acute hypoxemic respiratory failure, [place] Interval history: Back on levophed at 4 mcgs. Awake but not responsive. Sister at bedside. CT abdomen pelvis and chest done yesterday. Showed moderate ascities. Objective Vital Signs - 12hr 09/11/17 09/11/17 09/11/17 22:15 22:17 22:30 Temperature Pulse Rate 59 L 57 L 59 L Pulse Rate [ Anterior Bilateral Throughout] Pulse Rate [ From Monitor] Respiratory 16 16 Rate Respiratory Rate [Anterior Bilateral Throughout] Blood Pressure 90/52 89/53 O2 Sat by Pulse 98 98 Oximetry 09/11/17 09/11/17 09/11/17 22:45 23:00 23:02 Temperature Pulse Rate 57 L 58 L 58 L Pulse Rate [ Anterior Bilateral Throughout] Pulse Rate [ From Monitor] Respiratory 16 16 16 Rate Respiratory Rate [Anterior Bilateral Throughout] Blood Pressure 94/55 87/52 92/52 O2 Sat by Pulse 98 99 98 Oximetry 09/11/17 09/11/17 09/11/17 23:15 23:30 23:45 Temperature Pulse Rate 57 L 57 L 56 L Pulse Rate [ Anterior Bilateral Throughout] Pulse Rate [ From Monitor] Respiratory 16 16 16 Rate Respiratory Rate [Anterior Bilateral Throughout] Blood Pressure 91/54 96/56 95/55 O2 Sat by Pulse 98 99 99 Oximetry 09/12/17 09/12/17 09/12/17 00:00 00:15 00:30 Temperature 97.2 F L Pulse Rate 55 L 81 88 Pulse Rate [ Anterior Bilateral Throughout] Pulse Rate [ 104 H From Monitor] Respiratory 19 18 20 Rate Respiratory Rate [Anterior Bilateral Throughout] Blood Pressure 94/56 95/55 123/73 O2 Sat by Pulse 100 98 98 Oximetry 09/12/17 09/12/17 09/12/17 00:45 00:50 01:00 Temperature Pulse Rate 110 H 62 103 H Pulse Rate [ Anterior Bilateral Throughout] Pulse Rate [ From Monitor] Respiratory 18 19 Rate Respiratory Rate [Anterior Bilateral Throughout] Blood Pressure 128/75 106/60 128/75 O2 Sat by Pulse 97 97 97 Oximetry 09/12/17 09/12/17 09/12/17 01:15 01:30 01:45 Temperature Pulse Rate 94 H 97 H 86 Pulse Rate [ Anterior Bilateral Throughout] Pulse Rate [ From Monitor] Respiratory 20 15 18 Rate Respiratory Rate [Anterior Bilateral Throughout] Blood Pressure 127/69 129/76 129/76 O2 Sat by Pulse 96 96 97 Oximetry 09/12/17 09/12/17 09/12/17 02:00 02:15 02:20 Temperature Pulse Rate 80 92 H Pulse Rate [ 81 Anterior Bilateral Throughout] Pulse Rate [ From Monitor] Respiratory 19 16 Rate Respiratory 16 Rate [Anterior Bilateral Throughout] Blood Pressure 118/64 131/79 O2 Sat by Pulse 97 98 Oximetry 09/12/17 09/12/17 09/12/17 02:30 02:45 03:00 Temperature Pulse Rate 74 70 62 Pulse Rate [ Anterior Bilateral Throughout] Pulse Rate [ From Monitor] Respiratory 16 16 16 Rate Respiratory Rate [Anterior Bilateral Throughout] Blood Pressure 86/51 84/47 95/58 O2 Sat by Pulse 100 100 100 Oximetry 09/12/17 09/12/17 09/12/17 03:15 03:30 03:45 Temperature Pulse Rate 57 L 57 L 55 L Pulse Rate [ Anterior Bilateral Throughout] Pulse Rate [ From Monitor] Respiratory 16 16 16 Rate Respiratory Rate [Anterior Bilateral Throughout] Blood Pressure 103/63 100/60 98/59 O2 Sat by Pulse 98 98 98 Oximetry 09/12/17 09/12/17 09/12/17 04:00 04:15 04:31 Temperature Pulse Rate 56 L 62 76 Pulse Rate [ Anterior Bilateral Throughout] Pulse Rate [ From Monitor] Respiratory 16 16 16 Rate Respiratory Rate [Anterior Bilateral Throughout] Blood Pressure 88/49 106/60 111/72 O2 Sat by Pulse 97 97 97 Oximetry 09/12/17 09/12/17 09/12/17 04:45 05:00 05:15 Temperature Pulse Rate 62 77 91 H Pulse Rate [ Anterior Bilateral Throughout] Pulse Rate [ From Monitor] Respiratory 17 15 14 Rate Respiratory Rate [Anterior Bilateral Throughout] Blood Pressure 114/63 117/64 120/61 O2 Sat by Pulse 97 96 96 Oximetry 09/12/17 09/12/17 09/12/17 05:30 05:45 06:01 Temperature Pulse Rate 89 98 H 80 Pulse Rate [ Anterior Bilateral Throughout] Pulse Rate [ From Monitor] Respiratory 17 17 17 Rate Respiratory Rate [Anterior Bilateral Throughout] Blood Pressure 120/61 116/65 129/61 O2 Sat by Pulse 97 97 96 Oximetry 09/12/17 09/12/17 09/12/17 06:15 06:30 06:45 Temperature Pulse Rate 71 63 62 Pulse Rate [ Anterior Bilateral Throughout] Pulse Rate [ From Monitor] Respiratory 15 17 16 Rate Respiratory Rate [Anterior Bilateral Throughout] Blood Pressure 129/61 93/51 88/49 O2 Sat by Pulse 97 98 98 Oximetry 09/12/17 09/12/17 09/12/17 07:00 07:15 09:31 Temperature Pulse Rate 63 58 L 97 H Pulse Rate [ Anterior Bilateral Throughout] Pulse Rate [ From Monitor] Respiratory 16 16 Rate Respiratory Rate [Anterior Bilateral Throughout] Blood Pressure 101/56 91/53 104/77 O2 Sat by Pulse 99 99 97 Oximetry 09/12/17 09/12/17 09/12/17 09:35 09:39 09:41 Temperature Pulse Rate 107 H 100 H Pulse Rate [ 99 H Anterior Bilateral Throughout] Pulse Rate [ From Monitor] Respiratory 35 H Rate Respiratory 24 Rate [Anterior Bilateral Throughout] Blood Pressure 122/77 122/77 O2 Sat by Pulse 96 96 Oximetry 09/12/17 09:52 Temperature Pulse Rate Pulse Rate [ 118 H Anterior Bilateral Throughout] Pulse Rate [ From Monitor] Respiratory Rate Respiratory 24 Rate [Anterior Bilateral Throughout] Blood Pressure O2 Sat by Pulse Oximetry Constitutional: other (critically ill on vent, sedated) Eyes: non-icteric ENT: other (orally intubated and sedated) Neck: supple Effort: normal Ascultation: Bilateral: diminished breath sounds, rales, other (coarse BS bilaterally) Percussion: Bilateral: not dull Cardiovascular: regular rate and rhythm (sinus tach) Gastrointestinal: hypoactive bowel sounds, soft, non-tender, non-distended Extremities: no cyanosis, no edema, pink and warm Neurologic: normal mental status, non-focal exam, pupils equal and round, CN II- XII normal Psychiatric: other (unable to assess) CBC and BMP: 09/11/17 06:00 09/11/17 06:00 ABG, PT/INR, D-dimer: ABG POC ABG pH 7.439 (7.35-7.45) 09/12/17 04:24 POC ABG pCO2 53.5 (35-45) H 09/12/17 04:24 POC ABG pO2 79 (80-105) L 09/12/17 04:24 POC ABG HCO3 36.2 09/12/17 04:24 POC ABG Total CO2 38 09/12/17 04:24 POC ABG O2 Sat 96 09/12/17 04:24 PT/INR, D-dimer PT 28.4 Sec. (12.2-14.9) H 09/04/17 04:00 INR 2.47 (0.87-1.13) H 09/04/17 04:00 D-Dimer 976.43 ng/mlDDU (0-234) H 09/01/17 23:27 Abnormal lab findings: Abnormal Labs 09/01/17 09/01/17 09/01/17 19:00 19:00 23:27 WBC RBC Hgb 10.9 L Hct 32.3 L MCV 83 L MCH RDW 15.6 H Plt Count [place] % (Auto) Seg Neutrophils % Seg Neuts % (Manual) Lymphocytes % (Manual) Nucleated RBC % Seg Neutrophils # Man Lymphocytes # (Manual) PT INR Fibrinogen D-Dimer 976.43 H POC ABG pH POC ABG pCO2 POC ABG pO2 Sodium 133 L Potassium Chloride 96.4 L Carbon Dioxide BUN Creatinine Glucose 113 H POC Glucose Lactic Acid Calcium Phosphorus Magnesium AST ALT Lactate Dehydrogenase C-Reactive Protein Total Protein Albumin Lipase Lymph Enumerat CD4/CD8 % CD4 Cells Absolute CD4 Count % CD8 Cells % CD19 Cells Absolute CD19 Count Hep Bs Antibody, Quant Hep B Core Total Ab Hepatitis Be Antigen HIV-1 RNA PCR copies/ml HIV-1 RNA (PCR) log 09/01/17 09/02/17 09/02/17 23:27 01:25 07:36 WBC 2.2 L RBC 3.41 L Hgb 9.6 L Hct 28.9 L MCV MCH RDW 16.0 H Plt Count [place] % (Auto) 12.6 H Seg Neutrophils % 70.4 H Seg Neuts % (Manual) Lymphocytes % (Manual) Nucleated RBC % Seg Neutrophils # Man 1.1 L Lymphocytes # (Manual) 0.6 L PT INR Fibrinogen D-Dimer POC ABG pH POC ABG pCO2 POC ABG pO2 Sodium Potassium Chloride Carbon Dioxide BUN Creatinine Glucose POC Glucose Lactic Acid 3.30 H* 4.10 H* Calcium Phosphorus Magnesium AST ALT Lactate Dehydrogenase C-Reactive Protein Total Protein Albumin Lipase Lymph Enumerat CD4/CD8 % CD4 Cells Absolute CD4 Count % CD8 Cells % CD19 Cells Absolute CD19 Count Hep Bs Antibody, Quant Hep B Core Total Ab Hepatitis Be Antigen HIV-1 RNA PCR copies/ml HIV-1 RNA (PCR) log 09/02/17 09/02/17 09/02/17 07:36 07:36 07:36 WBC RBC Hgb Hct MCV MCH RDW Plt Count [place] % (Auto) Seg Neutrophils % Seg Neuts % (Manual) Lymphocytes % (Manual) Nucleated RBC % Seg Neutrophils # Man Lymphocytes # (Manual) PT 18.6 H INR 1.46 H Fibrinogen D-Dimer POC ABG pH POC ABG pCO2 POC ABG pO2 Sodium 136 L Potassium Chloride Carbon Dioxide BUN Creatinine Glucose POC Glucose Lactic Acid 3.80 H* Calcium Phosphorus Magnesium 1.20 L AST ALT Lactate Dehydrogenase C-Reactive Protein Total Protein 9.1 H Albumin 2.0 L Lipase Lymph Enumerat CD4/CD8 % CD4 Cells Absolute CD4 Count % CD8 Cells % CD19 Cells Absolute CD19 Count Hep Bs Antibody, Quant Hep B Core Total Ab Hepatitis Be Antigen HIV-1 RNA PCR copies/ml HIV-1 RNA (PCR) log 09/02/17 09/02/17 09/02/17 08:49 09:40 11:33 WBC RBC Hgb Hct MCV MCH RDW Plt Count [place] % (Auto) Seg Neutrophils % Seg Neuts % (Manual) Lymphocytes % (Manual) Nucleated RBC % Seg Neutrophils # Man Lymphocytes # (Manual) PT INR Fibrinogen D-Dimer POC ABG pH 7.313 L POC ABG pCO2 POC ABG pO2 116 H Sodium Potassium Chloride Carbon Dioxide BUN Creatinine Glucose POC Glucose Lactic Acid 3.60 H* 5.20 H* Calcium Phosphorus Magnesium AST ALT Lactate Dehydrogenase C-Reactive Protein Total Protein Albumin Lipase Lymph Enumerat CD4/CD8 % CD4 Cells Absolute CD4 Count % CD8 Cells % CD19 Cells Absolute CD19 Count Hep Bs Antibody, Quant Hep B Core Total Ab Hepatitis Be Antigen HIV-1 RNA PCR copies/ml HIV-1 RNA (PCR) log 09/02/17 09/02/17 09/02/17 19:34 23:37 23:40 WBC RBC Hgb Hct MCV MCH RDW Plt Count [place] % (Auto) Seg Neutrophils % Seg Neuts % (Manual) Lymphocytes % (Manual) Nucleated RBC % Seg Neutrophils # Man Lymphocytes # (Manual) PT INR Fibrinogen D-Dimer POC ABG pH POC ABG pCO2 POC ABG pO2 Sodium Potassium Chloride Carbon Dioxide BUN Creatinine Glucose 59 L POC Glucose 47 L Lactic Acid Calcium Phosphorus Magnesium AST ALT Lactate Dehydrogenase C-Reactive Protein 22.30 H Total Protein Albumin Lipase Lymph Enumerat CD4/CD8 % CD4 Cells Absolute CD4 Count % CD8 Cells % CD19 Cells Absolute CD19 Count Hep Bs Antibody, Quant Hep B Core Total Ab Hepatitis Be Antigen HIV-1 RNA PCR copies/ml HIV-1 RNA (PCR) log 09/03/17 09/03/17 09/03/17 00:06 05:15 05:15 WBC RBC 3.59 L Hgb 10.1 L Hct 31.5 L MCV MCH RDW 18.0 H Plt Count [place] % (Auto) Seg Neutrophils % Seg Neuts % (Manual) Lymphocytes % (Manual) 1.0 L Nucleated RBC % 1.0 H Seg Neutrophils # Man Lymphocytes # (Manual) 0.1 L PT INR Fibrinogen D-Dimer POC ABG pH POC ABG pCO2 POC ABG pO2 Sodium Potassium Chloride Carbon Dioxide BUN Creatinine Glucose POC Glucose 144 H Lactic Acid 9.10 H* Calcium Phosphorus Magnesium AST ALT Lactate Dehydrogenase C-Reactive Protein Total Protein Albumin Lipase Lymph Enumerat CD4/CD8 % CD4 Cells Absolute CD4 Count % CD8 Cells % CD19 Cells Absolute CD19 Count Hep Bs Antibody, Quant Hep B Core Total Ab Hepatitis Be Antigen HIV-1 RNA PCR copies/ml HIV-1 RNA (PCR) log 09/03/17 09/03/17 09/03/17 05:15 05:55 07:40 WBC RBC Hgb Hct MCV MCH RDW Plt Count [place] % (Auto) Seg Neutrophils % Seg Neuts % (Manual) Lymphocytes % (Manual) Nucleated RBC % Seg Neutrophils # Man Lymphocytes # (Manual) PT INR Fibrinogen D-Dimer POC ABG pH 6.999 L POC ABG pCO2 POC ABG pO2 64 L Sodium Potassium 5.6 H D Chloride 108.4 H Carbon Dioxide 11 L D BUN 30 H Creatinine Glucose 115 H POC Glucose Lactic Acid 9.20 H* Calcium 7.3 L D Phosphorus 6.40 H Magnesium AST 88 H ALT Lactate Dehydrogenase C-Reactive Protein Total Protein Albumin 1.7 L Lipase Lymph Enumerat CD4/CD8 % CD4 Cells Absolute CD4 Count % CD8 Cells % CD19 Cells Absolute CD19 Count Hep Bs Antibody, Quant Hep B Core Total Ab Hepatitis Be Antigen HIV-1 RNA PCR copies/ml HIV-1 RNA (PCR) log 09/03/17 09/03/17 09/03/17 09:55 12:03 13:17 WBC RBC Hgb Hct MCV MCH RDW Plt Count [place] % (Auto) Seg Neutrophils % Seg Neuts % (Manual) Lymphocytes % (Manual) Nucleated RBC % Seg Neutrophils # Man Lymphocytes # (Manual) PT INR Fibrinogen D-Dimer POC ABG pH POC ABG pCO2 POC ABG pO2 Sodium Potassium Chloride Carbon Dioxide BUN Creatinine Glucose POC Glucose 155 H Lactic Acid 9.50 H* 9.90 H* Calcium Phosphorus Magnesium AST ALT Lactate Dehydrogenase C-Reactive Protein Total Protein Albumin Lipase Lymph Enumerat CD4/CD8 % CD4 Cells Absolute CD4 Count % CD8 Cells % CD19 Cells Absolute CD19 Count Hep Bs Antibody, Quant Hep B Core Total Ab Hepatitis Be Antigen HIV-1 RNA PCR copies/ml HIV-1 RNA (PCR) log 09/03/17 09/03/17 09/03/17 15:55 17:13 18:02 WBC RBC Hgb Hct MCV MCH RDW Plt Count [place] % (Auto) Seg Neutrophils % Seg Neuts % (Manual) Lymphocytes % (Manual) Nucleated RBC % Seg Neutrophils # Man Lymphocytes # (Manual) PT INR Fibrinogen D-Dimer POC ABG pH POC ABG pCO2 POC ABG pO2 Sodium Potassium Chloride Carbon Dioxide BUN Creatinine Glucose POC Glucose 171 H Lactic Acid 9.60 H* 9.00 H* Calcium Phosphorus Magnesium AST ALT Lactate Dehydrogenase C-Reactive Protein Total Protein Albumin Lipase Lymph Enumerat CD4/CD8 % CD4 Cells Absolute CD4 Count % CD8 Cells % CD19 Cells Absolute CD19 Count Hep Bs Antibody, Quant Hep B Core Total Ab Hepatitis Be Antigen HIV-1 RNA PCR copies/ml HIV-1 RNA (PCR) log 09/03/17 09/03/17 09/04/17 20:29 23:02 04:00 WBC RBC Hgb Hct MCV MCH RDW Plt Count [place] % (Auto) Seg Neutrophils % Seg Neuts % (Manual) Lymphocytes % (Manual) Nucleated RBC % Seg Neutrophils # Man Lymphocytes # (Manual) PT INR Fibrinogen D-Dimer POC ABG pH POC ABG pCO2 POC ABG pO2 Sodium Potassium Chloride Carbon Dioxide BUN Creatinine Glucose POC Glucose 156 H Lactic Acid 9.00 H* 3.00 H* Calcium Phosphorus Magnesium AST ALT Lactate Dehydrogenase C-Reactive Protein Total Protein Albumin Lipase Lymph Enumerat CD4/CD8 % CD4 Cells Absolute CD4 Count % CD8 Cells % CD19 Cells Absolute CD19 Count Hep Bs Antibody, Quant Hep B Core Total Ab Hepatitis Be Antigen HIV-1 RNA PCR copies/ml HIV-1 RNA (PCR) log 09/04/17 09/04/17 09/04/17 04:00 04:00 09:00 WBC RBC 3.44 L Hgb 9.6 L Hct 29.0 L MCV MCH RDW 17.4 H Plt Count 124 L [place] % (Auto) Seg Neutrophils % Seg Neuts % (Manual) 91.0 H Lymphocytes % (Manual) 3.0 L Nucleated RBC % 2.0 H Seg Neutrophils # Man 9.9 H Lymphocytes # (Manual) 0.3 L PT 28.4 H INR 2.47 H Fibrinogen D-Dimer POC ABG pH POC ABG pCO2 POC ABG pO2 Sodium Potassium Chloride 110.1 H Carbon Dioxide BUN 29 H Creatinine Glucose 192 H POC Glucose Lactic Acid Calcium 6.8 L Phosphorus Magnesium AST 361 H ALT 315 H Lactate Dehydrogenase C-Reactive Protein Total Protein Albumin 1.6 L Lipase Lymph Enumerat CD4/CD8 % CD4 Cells Absolute CD4 Count % CD8 Cells % CD19 Cells Absolute CD19 Count Hep Bs Antibody, Quant Hep B Core Total Ab Hepatitis Be Antigen HIV-1 RNA PCR copies/ml HIV-1 RNA (PCR) log 09/04/17 09/04/17 09/04/17 09:00 12:00 17:23 WBC RBC Hgb Hct MCV MCH RDW Plt Count [place] % (Auto) Seg Neutrophils % Seg Neuts % (Manual) Lymphocytes % (Manual) Nucleated RBC % Seg Neutrophils # Man Lymphocytes # (Manual) PT INR Fibrinogen 611 H D-Dimer POC ABG pH POC ABG pCO2 POC ABG pO2 Sodium Potassium Chloride Carbon Dioxide BUN Creatinine Glucose POC Glucose Lactic Acid 2.10 H* 3.40 H* Calcium Phosphorus Magnesium AST ALT Lactate Dehydrogenase C-Reactive Protein Total Protein Albumin Lipase Lymph Enumerat CD4/CD8 % CD4 Cells Absolute CD4 Count % CD8 Cells % CD19 Cells Absolute CD19 Count Hep Bs Antibody, Quant Hep B Core Total Ab Hepatitis Be Antigen HIV-1 RNA PCR copies/ml HIV-1 RNA (PCR) log 09/04/17 09/04/17 09/04/17 17:23 17:47 22:30 WBC RBC Hgb Hct MCV MCH RDW Plt Count [place] % (Auto) Seg Neutrophils % Seg Neuts % (Manual) Lymphocytes % (Manual) Nucleated RBC % Seg Neutrophils # Man Lymphocytes # (Manual) PT INR Fibrinogen D-Dimer POC ABG pH POC ABG pCO2 POC ABG pO2 Sodium Potassium Chloride Carbon Dioxide BUN Creatinine Glucose POC Glucose 107 H Lactic Acid 4.70 H* Calcium Phosphorus Magnesium AST ALT Lactate Dehydrogenase C-Reactive Protein Total Protein Albumin Lipase 12 L Lymph Enumerat CD4/CD8 % CD4 Cells Absolute CD4 Count % CD8 Cells % CD19 Cells Absolute CD19 Count Hep Bs Antibody, Quant Hep B Core Total Ab Hepatitis Be Antigen HIV-1 RNA PCR copies/ml HIV-1 RNA (PCR) log 09/04/17 09/05/17 09/05/17 23:08 05:31 06:00 WBC RBC Hgb Hct MCV MCH RDW Plt Count [place] % (Auto) Seg Neutrophils % Seg Neuts % (Manual) Lymphocytes % (Manual) Nucleated RBC % Seg Neutrophils # Man Lymphocytes # (Manual) PT INR Fibrinogen D-Dimer POC ABG pH 7.226 L POC ABG pCO2 65.4 H POC ABG pO2 61 L Sodium Potassium Chloride 112.7 H Carbon Dioxide BUN 31 H Creatinine Glucose 132 H POC Glucose 109 H Lactic Acid Calcium 7.7 L Phosphorus Magnesium AST 834 H ALT 898 H Lactate Dehydrogenase C-Reactive Protein Total Protein Albumin 1.4 L Lipase Lymph Enumerat CD4/CD8 % CD4 Cells Absolute CD4 Count % CD8 Cells % CD19 Cells Absolute CD19 Count Hep Bs Antibody, Quant Hep B Core Total Ab Hepatitis Be Antigen HIV-1 RNA PCR copies/ml HIV-1 RNA (PCR) log 09/05/17 09/05/17 09/05/17 06:00 06:35 10:26 WBC RBC Hgb Hct MCV MCH RDW Plt Count [place] % (Auto) Seg Neutrophils % Seg Neuts % (Manual) Lymphocytes % (Manual) Nucleated RBC % Seg Neutrophils # Man Lymphocytes # (Manual) PT INR Fibrinogen D-Dimer POC ABG pH 7.311 L POC ABG pCO2 58.5 H POC ABG pO2 213 H Sodium Potassium Chloride Carbon Dioxide BUN Creatinine Glucose POC Glucose 110 H Lactic Acid 4.50 H* Calcium Phosphorus Magnesium AST ALT Lactate Dehydrogenase C-Reactive Protein Total Protein Albumin Lipase Lymph Enumerat CD4/CD8 % CD4 Cells Absolute CD4 Count % CD8 Cells % CD19 Cells Absolute CD19 Count Hep Bs Antibody, Quant Hep B Core Total Ab Hepatitis Be Antigen HIV-1 RNA PCR copies/ml HIV-1 RNA (PCR) log 09/05/17 09/05/17 09/05/17 10:55 10:55 10:55 WBC 11.1 H RBC 3.38 L Hgb 9.3 L Hct 28.7 L MCV MCH RDW 16.7 H Plt Count 118 L [place] % (Auto) Seg Neutrophils % Seg Neuts % (Manual) 92.0 H Lymphocytes % (Manual) 4.0 L Nucleated RBC % 2.0 H Seg Neutrophils # Man 10.2 H Lymphocytes # (Manual) 0.4 L PT INR Fibrinogen D-Dimer POC ABG pH POC ABG pCO2 POC ABG pO2 Sodium Potassium Chloride Carbon Dioxide BUN Creatinine Glucose POC Glucose Lactic Acid 3.60 H* Calcium Phosphorus Magnesium AST ALT Lactate Dehydrogenase 571 H C-Reactive Protein Total Protein Albumin Lipase Lymph Enumerat CD4/CD8 % CD4 Cells Absolute CD4 Count % CD8 Cells % CD19 Cells Absolute CD19 Count Hep Bs Antibody, Quant Hep B Core Total Ab Hepatitis Be Antigen HIV-1 RNA PCR copies/ml HIV-1 RNA (PCR) log 09/05/17 09/05/17 09/05/17 12:05 14:30 14:30 WBC RBC Hgb Hct MCV MCH RDW Plt Count [place] % (Auto) Seg Neutrophils % Seg Neuts % (Manual) Lymphocytes % (Manual) Nucleated RBC % Seg Neutrophils # Man Lymphocytes # (Manual) PT INR Fibrinogen D-Dimer POC ABG pH POC ABG pCO2 POC ABG pO2 Sodium Potassium Chloride Carbon Dioxide BUN Creatinine Glucose POC Glucose 148 H Lactic Acid Calcium Phosphorus Magnesium AST ALT Lactate Dehydrogenase C-Reactive Protein Total Protein Albumin Lipase Lymph Enumerat CD4/CD8 0.10 L % CD4 Cells 7 L Absolute CD4 Count 101 L % CD8 Cells 66 H % CD19 Cells 4 L Absolute CD19 Count 60 L Hep Bs Antibody, Quant Hep B Core Total Ab Hepatitis Be Antigen HIV-1 RNA PCR copies/ml 1750 H HIV-1 RNA (PCR) log 3.24 H 09/05/17 09/05/17 09/05/17 16:30 17:42 19:55 WBC RBC Hgb Hct MCV MCH RDW Plt Count [place] % (Auto) Seg Neutrophils % Seg Neuts % (Manual) Lymphocytes % (Manual) Nucleated RBC % Seg Neutrophils # Man Lymphocytes # (Manual) PT INR Fibrinogen D-Dimer POC ABG pH POC ABG pCO2 POC ABG pO2 Sodium Potassium Chloride Carbon Dioxide BUN Creatinine Glucose POC Glucose 183 H Lactic Acid 3.50 H* 3.60 H* Calcium Phosphorus Magnesium AST ALT Lactate Dehydrogenase C-Reactive Protein Total Protein Albumin Lipase Lymph Enumerat CD4/CD8 % CD4 Cells Absolute CD4 Count % CD8 Cells % CD19 Cells Absolute CD19 Count Hep Bs Antibody, Quant Hep B Core Total Ab Hepatitis Be Antigen HIV-1 RNA PCR copies/ml HIV-1 RNA (PCR) log 09/05/17 09/06/17 09/06/17 23:29 03:58 05:33 WBC RBC Hgb Hct MCV MCH RDW Plt Count [place] % (Auto) Seg Neutrophils % Seg Neuts % (Manual) Lymphocytes % (Manual) Nucleated RBC % Seg Neutrophils # Man Lymphocytes # (Manual) PT INR Fibrinogen D-Dimer POC ABG pH POC ABG pCO2 62.5 H POC ABG pO2 141 H Sodium Potassium Chloride Carbon Dioxide BUN Creatinine Glucose POC Glucose 203 H 207 H Lactic Acid Calcium Phosphorus Magnesium AST ALT Lactate Dehydrogenase C-Reactive Protein Total Protein Albumin Lipase Lymph Enumerat CD4/CD8 % CD4 Cells Absolute CD4 Count % CD8 Cells % CD19 Cells Absolute CD19 Count Hep Bs Antibody, Quant Hep B Core Total Ab Hepatitis Be Antigen HIV-1 RNA PCR copies/ml HIV-1 RNA (PCR) log 09/06/17 09/06/17 09/06/17 06:15 06:15 06:15 WBC RBC 3.26 L Hgb 9.0 L Hct 27.5 L MCV MCH RDW 16.7 H Plt Count 104 L [place] % (Auto) Seg Neutrophils % Seg Neuts % (Manual) 97.0 H Lymphocytes % (Manual) 2.0 L Nucleated RBC % Seg Neutrophils # Man 8.1 H Lymphocytes # (Manual) 0.2 L PT INR Fibrinogen D-Dimer POC ABG pH POC ABG pCO2 POC ABG pO2 Sodium 150 H Potassium Chloride 110.9 H Carbon Dioxide 31 H BUN 34 H Creatinine Glucose 207 H POC Glucose Lactic Acid 2.90 H* Calcium 8.2 L Phosphorus Magnesium AST 346 H ALT 634 H Lactate Dehydrogenase C-Reactive Protein Total Protein Albumin 1.5 L Lipase Lymph Enumerat CD4/CD8 % CD4 Cells Absolute CD4 Count % CD8 Cells % CD19 Cells Absolute CD19 Count Hep Bs Antibody, Quant Hep B Core Total Ab Hepatitis Be Antigen HIV-1 RNA PCR copies/ml HIV-1 RNA (PCR) log 09/06/17 09/06/17 09/06/17 08:03 11:32 18:04 WBC RBC Hgb Hct MCV MCH RDW Plt Count [place] % (Auto) Seg Neutrophils % Seg Neuts % (Manual) Lymphocytes % (Manual) Nucleated RBC % Seg Neutrophils # Man Lymphocytes # (Manual) PT INR Fibrinogen D-Dimer POC ABG pH POC ABG pCO2 POC ABG pO2 Sodium Potassium Chloride Carbon Dioxide BUN Creatinine Glucose POC Glucose 169 H 130 H Lactic Acid 2.90 H* Calcium Phosphorus Magnesium AST ALT Lactate Dehydrogenase C-Reactive Protein Total Protein Albumin Lipase Lymph Enumerat CD4/CD8 % CD4 Cells Absolute CD4 Count % CD8 Cells % CD19 Cells Absolute CD19 Count Hep Bs Antibody, Quant Hep B Core Total Ab Hepatitis Be Antigen HIV-1 RNA PCR copies/ml HIV-1 RNA (PCR) log 09/07/17 09/07/17 09/07/17 00:03 04:13 04:13 WBC RBC Hgb Hct MCV MCH RDW Plt Count [place] % (Auto) Seg Neutrophils % Seg Neuts % (Manual) Lymphocytes % (Manual) Nucleated RBC % Seg Neutrophils # Man Lymphocytes # (Manual) PT INR Fibrinogen D-Dimer POC ABG pH POC ABG pCO2 POC ABG pO2 Sodium 152 H Potassium 3.5 L Chloride 114.9 H Carbon Dioxide 34 H BUN 35 H Creatinine Glucose 149 H POC Glucose 123 H Lactic Acid Calcium Phosphorus Magnesium AST 150 H ALT 381 H Lactate Dehydrogenase C-Reactive Protein Total Protein Albumin 1.3 L Lipase Lymph Enumerat CD4/CD8 % CD4 Cells Absolute CD4 Count % CD8 Cells % CD19 Cells Absolute CD19 Count Hep Bs Antibody, Quant Hep B Core Total Ab Reactive H Hepatitis Be Antigen HIV-1 RNA PCR copies/ml HIV-1 RNA (PCR) log 09/07/17 09/07/17 09/07/17 04:13 04:13 04:33 WBC RBC Hgb Hct MCV MCH RDW Plt Count [place] % (Auto) Seg Neutrophils % Seg Neuts % (Manual) Lymphocytes % (Manual) Nucleated RBC % Seg Neutrophils # Man Lymphocytes # (Manual) PT INR Fibrinogen D-Dimer POC ABG pH 7.590 H POC ABG pCO2 POC ABG pO2 179 H Sodium Potassium Chloride Carbon Dioxide BUN Creatinine Glucose POC Glucose Lactic Acid Calcium Phosphorus Magnesium AST ALT Lactate Dehydrogenase C-Reactive Protein Total Protein Albumin Lipase Lymph Enumerat CD4/CD8 % CD4 Cells Absolute CD4 Count % CD8 Cells % CD19 Cells Absolute CD19 Count Hep Bs Antibody, Quant <5 L Hep B Core Total Ab Hepatitis Be Antigen Reactive H HIV-1 RNA PCR copies/ml HIV-1 RNA (PCR) log 09/07/17 09/07/17 09/07/17 05:05 08:20 11:34 WBC 11.9 H RBC 3.11 L Hgb 8.4 L Hct 26.0 L MCV MCH 27 L RDW 16.2 H Plt Count 109 L [place] % (Auto) Seg Neutrophils % Seg Neuts % (Manual) 93.0 H Lymphocytes % (Manual) 1.0 L Nucleated RBC % Seg Neutrophils # Man 11.1 H Lymphocytes # (Manual) 0.1 L PT INR Fibrinogen D-Dimer POC ABG pH POC ABG pCO2 POC ABG pO2 Sodium Potassium Chloride Carbon Dioxide BUN Creatinine Glucose POC Glucose 168 H 156 H Lactic Acid Calcium Phosphorus Magnesium AST ALT Lactate Dehydrogenase C-Reactive Protein Total Protein Albumin Lipase Lymph Enumerat CD4/CD8 % CD4 Cells Absolute CD4 Count % CD8 Cells % CD19 Cells Absolute CD19 Count Hep Bs Antibody, Quant Hep B Core Total Ab Hepatitis Be Antigen HIV-1 RNA PCR copies/ml HIV-1 RNA (PCR) log 09/07/17 09/07/17 09/07/17 18:13 20:14 20:14 WBC 14.6 H RBC 3.36 L Hgb 9.2 L Hct 28.3 L MCV MCH 27 L RDW 16.1 H Plt Count 120 L [place] % (Auto) Seg Neutrophils % Seg Neuts % (Manual) 93.0 H Lymphocytes % (Manual) 2.0 L Nucleated RBC % Seg Neutrophils # Man 13.6 H Lymphocytes # (Manual) 0.3 L PT INR Fibrinogen D-Dimer POC ABG pH POC ABG pCO2 POC ABG pO2 Sodium 154 H Potassium 3.4 L Chloride 114.7 H Carbon Dioxide 34 H BUN 37 H Creatinine Glucose 131 H POC Glucose 136 H Lactic Acid Calcium Phosphorus Magnesium AST ALT Lactate Dehydrogenase C-Reactive Protein Total Protein Albumin Lipase Lymph Enumerat CD4/CD8 % CD4 Cells Absolute CD4 Count % CD8 Cells % CD19 Cells Absolute CD19 Count Hep Bs Antibody, Quant Hep B Core Total Ab Hepatitis Be Antigen HIV-1 RNA PCR copies/ml HIV-1 RNA (PCR) log 09/08/17 09/08/17 09/08/17 05:15 05:30 05:30 WBC 13.6 H RBC 3.29 L Hgb 9.1 L Hct 27.4 L MCV 83 L MCH RDW 15.8 H Plt Count 111 L [place] % (Auto) Seg Neutrophils % Seg Neuts % (Manual) 94.0 H Lymphocytes % (Manual) 4.0 L Nucleated RBC % 1.0 H Seg Neutrophils # Man 12.8 H Lymphocytes # (Manual) 0.5 L PT INR Fibrinogen D-Dimer POC ABG pH 7.460 H POC ABG pCO2 54.7 H POC ABG pO2 209 H Sodium Potassium Chloride Carbon Dioxide BUN Creatinine Glucose POC Glucose Lactic Acid Calcium Phosphorus Magnesium AST ALT Lactate Dehydrogenase C-Reactive Protein 8.70 H Total Protein Albumin Lipase Lymph Enumerat CD4/CD8 % CD4 Cells Absolute CD4 Count % CD8 Cells % CD19 Cells Absolute CD19 Count Hep Bs Antibody, Quant Hep B Core Total Ab Hepatitis Be Antigen HIV-1 RNA PCR copies/ml HIV-1 RNA (PCR) log 09/08/17 09/08/17 09/08/17 05:30 12:24 17:19 WBC RBC Hgb Hct MCV MCH RDW Plt Count [place] % (Auto) Seg Neutrophils % Seg Neuts % (Manual) Lymphocytes % (Manual) Nucleated RBC % Seg Neutrophils # Man Lymphocytes # (Manual) PT INR Fibrinogen D-Dimer POC ABG pH POC ABG pCO2 POC ABG pO2 Sodium 154 H Potassium Chloride 114.3 H Carbon Dioxide 36 H BUN 39 H Creatinine Glucose 163 H POC Glucose 181 H 170 H Lactic Acid Calcium Phosphorus Magnesium AST ALT Lactate Dehydrogenase C-Reactive Protein Total Protein Albumin Lipase Lymph Enumerat CD4/CD8 % CD4 Cells Absolute CD4 Count % CD8 Cells % CD19 Cells Absolute CD19 Count Hep Bs Antibody, Quant Hep B Core Total Ab Hepatitis Be Antigen HIV-1 RNA PCR copies/ml HIV-1 RNA (PCR) log 09/08/17 09/09/17 09/09/17 23:51 04:00 04:00 WBC 20.1 H RBC 3.37 L Hgb 9.2 L Hct 28.0 L MCV 83 L MCH 27 L RDW 15.7 H Plt Count 123 L [place] % (Auto) Seg Neutrophils % Seg Neuts % (Manual) 86.0 H Lymphocytes % (Manual) 9.0 L Nucleated RBC % Seg Neutrophils # Man 17.3 H Lymphocytes # (Manual) PT INR Fibrinogen D-Dimer POC ABG pH POC ABG pCO2 POC ABG pO2 Sodium 150 H Potassium 3.0 L Chloride 107.7 H Carbon Dioxide 35 H BUN 39 H Creatinine Glucose 174 H POC Glucose 185 H Lactic Acid Calcium Phosphorus Magnesium AST ALT Lactate Dehydrogenase C-Reactive Protein Total Protein Albumin Lipase Lymph Enumerat CD4/CD8 % CD4 Cells Absolute CD4 Count % CD8 Cells % CD19 Cells Absolute CD19 Count Hep Bs Antibody, Quant Hep B Core Total Ab Hepatitis Be Antigen HIV-1 RNA PCR copies/ml HIV-1 RNA (PCR) log 09/09/17 09/09/17 09/09/17 04:34 05:57 12:04 WBC RBC Hgb Hct MCV MCH RDW Plt Count [place] % (Auto) Seg Neutrophils % Seg Neuts % (Manual) Lymphocytes % (Manual) Nucleated RBC % Seg Neutrophils # Man Lymphocytes # (Manual) PT INR Fibrinogen D-Dimer POC ABG pH 7.575 H POC ABG pCO2 POC ABG pO2 63 L Sodium Potassium Chloride Carbon Dioxide BUN Creatinine Glucose POC Glucose 170 H 126 H Lactic Acid Calcium Phosphorus Magnesium AST ALT Lactate Dehydrogenase C-Reactive Protein Total Protein Albumin Lipase Lymph Enumerat CD4/CD8 % CD4 Cells Absolute CD4 Count % CD8 Cells % CD19 Cells Absolute CD19 Count Hep Bs Antibody, Quant Hep B Core Total Ab Hepatitis Be Antigen HIV-1 RNA PCR copies/ml HIV-1 RNA (PCR) log 09/09/17 09/10/17 09/10/17 17:31 00:02 03:46 WBC RBC Hgb Hct MCV MCH RDW Plt Count [place] % (Auto) Seg Neutrophils % Seg Neuts % (Manual) Lymphocytes % (Manual) Nucleated RBC % Seg Neutrophils # Man Lymphocytes # (Manual) PT INR Fibrinogen D-Dimer POC ABG pH 7.529 H POC ABG pCO2 45.6 H POC ABG pO2 69 L Sodium Potassium Chloride Carbon Dioxide BUN Creatinine Glucose POC Glucose 180 H 190 H Lactic Acid Calcium Phosphorus Magnesium AST ALT Lactate Dehydrogenase C-Reactive Protein Total Protein Albumin Lipase Lymph Enumerat CD4/CD8 % CD4 Cells Absolute CD4 Count % CD8 Cells % CD19 Cells Absolute CD19 Count Hep Bs Antibody, Quant Hep B Core Total Ab Hepatitis Be Antigen HIV-1 RNA PCR copies/ml HIV-1 RNA (PCR) log 09/10/17 09/10/17 09/10/17 04:44 04:50 06:19 WBC 21.7 H RBC 3.32 L Hgb 9.2 L Hct 28.0 L MCV MCH RDW 15.3 H Plt Count [place] % (Auto) Seg Neutrophils % Seg Neuts % (Manual) 96.0 H Lymphocytes % (Manual) 4.0 L Nucleated RBC % Seg Neutrophils # Man 20.8 H Lymphocytes # (Manual) 0.9 L PT INR Fibrinogen D-Dimer POC ABG pH POC ABG pCO2 POC ABG pO2 Sodium 149 H Potassium Chloride 109.8 H Carbon Dioxide 36 H BUN 34 H Creatinine 0.7 L Glucose 139 H POC Glucose 154 H Lactic Acid Calcium Phosphorus Magnesium AST ALT Lactate Dehydrogenase C-Reactive Protein Total Protein Albumin Lipase Lymph Enumerat CD4/CD8 % CD4 Cells Absolute CD4 Count % CD8 Cells % CD19 Cells Absolute CD19 Count Hep Bs Antibody, Quant Hep B Core Total Ab Hepatitis Be Antigen HIV-1 RNA PCR copies/ml HIV-1 RNA (PCR) log 09/10/17 09/10/17 09/10/17 11:58 17:15 23:24 WBC RBC Hgb Hct MCV MCH RDW Plt Count [place] % (Auto) Seg Neutrophils % Seg Neuts % (Manual) Lymphocytes % (Manual) Nucleated RBC % Seg Neutrophils # Man Lymphocytes # (Manual) PT INR Fibrinogen D-Dimer POC ABG pH POC ABG pCO2 POC ABG pO2 Sodium Potassium Chloride Carbon Dioxide BUN Creatinine Glucose POC Glucose 204 H 193 H 177 H Lactic Acid Calcium Phosphorus Magnesium AST ALT Lactate Dehydrogenase C-Reactive Protein Total Protein Albumin Lipase Lymph Enumerat CD4/CD8 % CD4 Cells Absolute CD4 Count % CD8 Cells % CD19 Cells Absolute CD19 Count Hep Bs Antibody, Quant Hep B Core Total Ab Hepatitis Be Antigen HIV-1 RNA PCR copies/ml HIV-1 RNA (PCR) log 09/11/17 09/11/17 09/11/17 04:03 05:39 06:00 WBC 15.9 H RBC 2.93 L Hgb 7.9 L Hct 24.9 L MCV MCH 27 L RDW 15.6 H Plt Count [place] % (Auto) Seg Neutrophils % Seg Neuts % (Manual) 99.0 H Lymphocytes % (Manual) 0 L Nucleated RBC % Seg Neutrophils # Man 15.7 H Lymphocytes # (Manual) 0.0 L PT INR Fibrinogen D-Dimer POC ABG pH 7.572 H POC ABG pCO2 POC ABG pO2 113 H Sodium Potassium Chloride Carbon Dioxide BUN Creatinine Glucose POC Glucose 144 H Lactic Acid Calcium Phosphorus Magnesium AST ALT Lactate Dehydrogenase C-Reactive Protein Total Protein Albumin Lipase Lymph Enumerat CD4/CD8 % CD4 Cells Absolute CD4 Count % CD8 Cells % CD19 Cells Absolute CD19 Count Hep Bs Antibody, Quant Hep B Core Total Ab Hepatitis Be Antigen HIV-1 RNA PCR copies/ml HIV-1 RNA (PCR) log 09/11/17 09/11/17 09/11/17 06:00 11:48 18:01 WBC RBC Hgb Hct MCV MCH RDW Plt Count [place] % (Auto) Seg Neutrophils % Seg Neuts % (Manual) Lymphocytes % (Manual) Nucleated RBC % Seg Neutrophils # Man Lymphocytes # (Manual) PT INR Fibrinogen D-Dimer POC ABG pH POC ABG pCO2 POC ABG pO2 Sodium Potassium Chloride 108.1 H Carbon Dioxide BUN 30 H Creatinine 0.6 L Glucose 132 H POC Glucose 179 H 135 H Lactic Acid Calcium 7.4 L D Phosphorus Magnesium AST ALT Lactate Dehydrogenase C-Reactive Protein Total Protein Albumin Lipase Lymph Enumerat CD4/CD8 % CD4 Cells Absolute CD4 Count % CD8 Cells % CD19 Cells Absolute CD19 Count Hep Bs Antibody, Quant Hep B Core Total Ab Hepatitis Be Antigen HIV-1 RNA PCR copies/ml HIV-1 RNA (PCR) log 09/12/17 09/12/17 00:22 04:24 WBC RBC Hgb Hct MCV MCH RDW Plt Count [place] % (Auto) Seg Neutrophils % Seg Neuts % (Manual) Lymphocytes % (Manual) Nucleated RBC % Seg Neutrophils # Man Lymphocytes # (Manual) PT INR Fibrinogen D-Dimer POC ABG pH POC ABG pCO2 53.5 H POC ABG pO2 79 L Sodium Potassium Chloride Carbon Dioxide BUN Creatinine Glucose POC Glucose 164 H Lactic Acid Calcium Phosphorus Magnesium AST ALT Lactate Dehydrogenase C-Reactive Protein Total Protein Albumin Lipase Lymph Enumerat CD4/CD8 % CD4 Cells Absolute CD4 Count % CD8 Cells % CD19 Cells Absolute CD19 Count Hep Bs Antibody, Quant Hep B Core Total Ab Hepatitis Be Antigen HIV-1 RNA PCR copies/ml HIV-1 RNA (PCR) log
[2017-09-12] MEDS ORDERED: XYLOCAINE 1% 20 mL INFILTRATI ONE (10:44)
[2017-09-12] MEDS: LASIX IV SCH (11:10)
[2017-09-12] MEDS: BACTRIM DS PO SCH (11:11)
[2017-09-12] MEDS: LOVENOX SUB-Q SCH (11:11)
[2017-09-12] MEDS: DIFLUCAN 200 MG/100 ML BAG IV SCH (11:11)
[2017-09-12] MEDS: PEPCID PO SCH ×2 (11:11→22:48)
[2017-09-12 11:25] LABS: INR 1.09 (0.87-1.13); Partial Thromboplastin Time 26.2 Sec. (24.2-36.6)
[2017-09-12] MEDS: VANCOMYCIN 1,500 MG in NACL 0.9% 500 ML 500 ML IV SCH (11:37)
[2017-09-12] MEDS ORDERED: VANCOMYCIN PHARMACY TO DOSE IV SCH (12:00)
[2017-09-12] MEDS: MAXIPIME 2 GM in NACL 0.9% 20 ML IV SCH ×2 (15:40→22:51)
--- NOTE | 2017-09-12 15:47 | Progress Note ---
Assessment and Plan Assessment: 1) Severe Sepsis with septic shock: back on pressors, unclear etiology ? pneumonia with effusion ? SBP Initial Etiology most likely E coli septicemia and pneumonia. -CRP 22.30. -Lactic acid better as of 09/06. -Off levophed. -Afebrile. -Leukocytosis down - On solumedrol. 2) E. coli septicemia: unknown source ? Pneumonia ? UTI (UCx negative) ? GI -Blood cultures 09/01 positive 4 of 4 bottles. E coli sens to cefepime/zosyn -Repeat Blood cultures 09/04 negative. -TTE 09/02 no vegetations. 3) Bilateral pneumonia: recently treated at [facility]. -Tracheal asp with normal fiordaliza. - CT chest 09/02 with extensive bilateral pulmonary opacities due to edema vs PNA. Also component of atelectasis. Bilateral pleural effusions. - Legionella and Strep pneumo ag in urine negative - On bactrim and steroids since 09/05. -PJP DFA negative -repeat CT patchy infiltrate in RUL and large right effusion/mod left effusion 4) Acute respiratory failure. Intubated. From pneumonia +/- CHF 5) HIV/AIDS, poorly compliant with HAART for past > 1 year per [facility]; last CD4 per [facility] was 133. [id number] on 08/26/17 -RPR neg 6) Abnormal CT A/P with numerous liver lesions suspicious for metastatic liver disease, moderate ascites, possible partial vein thrombosis. 7) Encephalopathy. 8) Transaminitis. Could be due to shock liver. Improved. ?hep B. -Hep B Surface ag positive, HBVe antigen positive, HBV core total ab positive -Hep C negative -CT + Ascitis 9) Acute Thrombocytopenia. Improved. 10) Low EF Plan: -repeat blood cx -continue cefepime day 1of 14 -add vancomycin -agree with paracentesis -consider thoracentesis -stop fluconazole day 10 of 10 -continue bactrim DS 1 tab qday for prophylaxis -continue azithromycin 1200 mg qweek for prophylaxis -Will f/u genotype, HLA [id number], quantiferon, hep B viral load. -Will f/u fungal blood cultures, AFB blood cultures -needs trach/PEG when stable Eduarda oRlon MD Infectious Diseases Specialist [facility] ([facility] M [phone] O [phone] Subjective Date of service: 09/12/17 Principal diagnosis: Septic shock, acute hypoxemic respiratory failure, [place] Interval history: Remains intubated fio2 35%, p8. Afebrile. back on pressors-levophed at 4 mcg/kg/ min Microbiology: Blood cultures: 09/01 E coli x 4 bottles 09/04 Neg 09/06 ngtd Fungal blood culture: 09/06 pending Urine cultures: 09/02 Neg Respiratory cultures: TA 09/02 normal fiordaliza Crypto ag in serum negative Current Antimicrobials: Meropenem 09/02- Fluconazole 09/03- Vanco 09/02- Bactrim 09/05- Azithromycin 09/06- Solumedrol 09/05- Previous Antimicrobials: Zosyn 09/02 Azithro 09/02 Objective - Exam Narrative Exam: General appearance: sedated on the vent alert anxious eye open Eyes: anicteric sclerae, moist conjunctivae HENT: Atraumatic; oropharynx + ETT, + NGT Neck: Trachea midline; supple, no thyromegaly or lymphadenopathy Lungs: lila rhonchi CV: RRR, no murmurs Abdomen: distended tense +BS Extremities: lila arm edema Skin: Normal temperature, turgor and texture; no rash, ulcers or subcutaneous nodules Psych: sedated. Neuro: sedated Lines: right IJ TLC / Quach clear urine - Constitutional Vitals: Vital Signs Temp Pulse Resp BP Pulse Ox 97.8 F 85 17 104/52 97 09/12/17 12:00 09/12/17 13:30 09/12/17 13:30 09/12/17 13:21 09/12/17 13:21 Temperature -Last 24 Hours Temperature 97.8 F Temperature 98 F Temperature 97.2 F Temperature 97 F Temperature 97.9 F - Labs CBC & Chem 7: 09/11/17 06:00 09/11/17 06:00 Labs: Abnormal lab results 09/11/17 09/12/17 09/12/17 Range/Units 18:01 00:22 04:24 POC ABG pCO2 53.5 H (35-45) POC ABG pO2 79 L (80-105) POC Glucose 135 H 164 H (70-105) 09/12/17 Range/Units 12:17 POC ABG pCO2 (35-45) POC ABG pO2 (80-105) POC Glucose 157 H (70-105)
--- NOTE | 2017-09-12 18:30 | Progress Note ---
Assessment and Plan Assessment and plan: 52-year-old male presents to the emergency department with complaint of shortness of breath and some midsternal right-sided chest discomfort with inspiration that started earlier this afternoon and radiates towards the back. The patient was just discharged from the [facility] a few days ago after treated for bilateral pneumonia. He is on Bactrim and just finished a course of antifungal medication for oral thrush. He does not smoke or use illicit drugs. His physicians are through the [facility]. Patient was recently discharged from a 6 day hospital stay at the [facility]. He denies any leg swelling, nausea, vomiting or fever. Septic shock due to underlying pneumonia Pneumonia bacteria - Ramón neg rods, Gram Negative bacteremia Patient is on Bactrim and azithromycin for prophylaxis Acute hypoxemic respiratory failure intubated 09/01/17, on MV >96 hours Hyperkalemia - corrected Anemia of chronic disease Hypernatremia multiple liver masses suspicious for metastatic disease Portal vein thrombosis? 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 The aggregate critical care time was [34] minutes. This time is in addition to time spent performing reported procedures but includes the following: [x] Data Review and interpretation [x] Patient assessment and monitoring of vital signs [x] Documentation [x] Medication orders and management History Interval history: Was seen and evaluated this morning, patient is intubated and on mechanical ventilation. Hospitalist Physical - Physical exam Narrative exam: Patient is intubated and on mechanical ventilation. The patient appeared well nourished and normally developed. Vital signs as documented. Head exam is unremarkable. No scleral icterus . Neck is without jugular venous distension, thyromegaly, or carotid bruits. Lungs are clear to auscultation. Cardiac exam reveals regular rate and Rhythm. First and second heart sounds normal. No murmurs, rubs or gallops. Abdominal exam reveals normal bowel sounds, no masses, no organomegaly and no aortic enlargement. Extremities are nonedematous and both femoral and pedal pulses are normal. 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 - Constitutional Vitals: Temp Pulse Resp BP Pulse Ox 98.4 F 78 19 107/71 97 09/12/17 16:00 09/12/17 18:10 09/12/17 16:00 09/12/17 18:10 09/12/17 18:10 General appearance: Present: no acute distress, well-nourished, other (intubated ) Results - Labs CBC & Chem 7: 09/11/17 06:00 09/11/17 06:00 Labs: Laboratory Last Values WBC 15.9 K/mm3 (4.5-11.0) H 09/11/17 06:00 RBC 2.93 M/mm3 (3.65-5.03) L 09/11/17 06:00 Hgb 7.9 gm/dl (11.8-15.2) L 09/11/17 06:00 Hct 24.9 % (35.5-45.6) L 09/11/17 06:00 MCV 85 fl (84-94) 09/11/17 06:00 MCH 27 pg (28-32) L 09/11/17 06:00 MCHC 32 % (32-34) 09/11/17 06:00 RDW 15.6 % (13.2-15.2) H 09/11/17 06:00 Plt Count 147 K/mm3 (140-440) 09/11/17 06:00 [place] % (Auto) 12.6 % (0.0-7.3) H 09/02/17 07:36 Eos % (Auto) 0.3 % (0.0-4.3) 09/02/17 07:36 [place] # 0.4 K/mm3 (0.0-0.8) 09/02/17 07:36 Eos # 0.0 K/mm3 (0.0-0.4) 09/02/17 07:36 Baso # 0.0 K/mm3 (0.0-0.1) 09/02/17 07:36 Add Manual Diff Complete 09/11/17 06:00 Total Counted 100 09/11/17 06:00 Seg Neutrophils % Lion Tamer 09/11/17 06:00 Seg Neuts % (Manual) 99.0 % (40.0-70.0) H 09/11/17 06:00 Band Neutrophils % 0 % 09/11/17 06:00 Lymphocytes % (Manual) 0 % (13.4-35.0) L 09/11/17 06:00 Reactive Lymphs % (Man) 0 % 09/11/17 06:00 Monocytes % (Manual) 1.0 % (0.0-7.3) 09/11/17 06:00 Eosinophils % (Manual) 0 % (0.0-4.3) 09/11/17 06:00 Basophils % (Manual) 0 % (0.0-1.8) 09/11/17 06:00 Metamyelocytes % 0 % 09/11/17 06:00 Myelocytes % 0 % 09/11/17 06:00 Promyelocytes % 0 % 09/11/17 06:00 Blast Cells % 0 % 09/11/17 06:00 Nucleated RBC % Not Reportable 09/11/17 06:00 Seg Neutrophils # 2.1 K/mm3 (1.8-7.7) 09/02/17 07:36 Seg Neutrophils # Man 15.7 K/mm3 (1.8-7.7) H 09/11/17 06:00 Band Neutrophils # 0.0 K/mm3 09/11/17 06:00 Abs Lymphs (Manual) 1470 cells/uL (850-3900) 09/05/17 14:30 Lymphocytes # (Manual) 0.0 K/mm3 (1.2-5.4) L 09/11/17 06:00 Abs React Lymphs (Man) 0.0 K/mm3 09/11/17 06:00 Monocytes # (Manual) 0.2 K/mm3 (0.0-0.8) 09/11/17 06:00 Eosinophils # (Manual) 0.0 K/mm3 (0.0-0.4) 09/11/17 06:00 Basophils # (Manual) 0.0 K/mm3 (0.0-0.1) 09/11/17 06:00 Metamyelocytes # 0.0 K/mm3 09/11/17 06:00 Myelocytes # 0.0 K/mm3 09/11/17 06:00 Promyelocytes # 0.0 K/mm3 09/11/17 06:00 Blast Cells # 0.0 K/mm3 09/11/17 06:00 WBC Morphology Not Reportable 09/11/17 06:00 Hypersegmented Neuts Not Reportable 09/11/17 06:00 Hyposegmented Neuts Not Reportable 09/11/17 06:00 Hypogranular Neuts Not Reportable 09/11/17 06:00 Smudge Cells Not Reportable 09/11/17 06:00 Toxic Granulation Not Reportable 09/11/17 06:00 Toxic Vacuolation Not Reportable 09/11/17 06:00 Dohle Bodies Not Reportable 09/11/17 06:00 Pelger-Huet Anomaly Not Reportable 09/11/17 06:00 Efren Rods Not Reportable 09/11/17 06:00 Platelet Estimate Cons 09/11/17 06:00 Clumped Platelets Not Reportable 09/11/17 06:00 Plt Clumps, EDTA Not Reportable 09/11/17 06:00 Large Platelets Few 09/11/17 06:00 Giant Platelets Not Reportable 09/11/17 06:00 Platelet Satelliting Not Reportable 09/11/17 06:00 Plt Morphology Comment Not Reportable 09/11/17 06:00 RBC Morphology Not Reportable 09/11/17 06:00 Dimorphic RBCs Not Reportable 09/11/17 06:00 Polychromasia Not Reportable 09/11/17 06:00 Hypochromasia Not Reportable 09/11/17 06:00 Poikilocytosis Not Reportable 09/11/17 06:00 Anisocytosis 1+ 09/11/17 06:00 Microcytosis Not Reportable 09/11/17 06:00 Macrocytosis Not Reportable 09/11/17 06:00 Spherocytes Not Reportable 09/11/17 06:00 Pappenheimer Bodies Not Reportable 09/11/17 06:00 Sickle Cells Not Reportable 09/11/17 06:00 Target Cells Not Reportable 09/11/17 06:00 Tear Drop Cells Not Reportable 09/11/17 06:00 Ovalocytes Not Reportable 09/11/17 06:00 Helmet Cells Not Reportable 09/11/17 06:00 [place] Bodies Not Reportable 09/11/17 06:00 [place] Rings Not Reportable 09/11/17 06:00 Seffner Cells Not Reportable 09/11/17 06:00 Bite Cells Not Reportable 09/11/17 06:00 Crenated Cell Not Reportable 09/11/17 06:00 Elliptocytes Not Reportable 09/11/17 06:00 Acanthocytes (Spur) Not Reportable 09/11/17 06:00 Rouleaux Not Reportable 09/11/17 06:00 Hemoglobin C Crystals Not Reportable 09/11/17 06:00 Schistocytes Not Reportable 09/11/17 06:00 Malaria parasites Not Reportable 09/11/17 06:00 Scott Bodies Not Reportable 09/11/17 06:00 Hem Pathologist Commnt No 09/11/17 06:00 PT 14.7 Sec. (12.2-14.9) 09/12/17 10:29 INR 1.09 (0.87-1.13) 09/12/17 10:29 APTT 26.2 Sec. (24.2-36.6) 09/12/17 10:29 Fibrinogen 611 mg/dl (211-480) H 09/04/17 17:23 D-Dimer 976.43 ng/mlDDU (0-234) H 09/01/17 23:27 POC ABG pH 7.439 (7.35-7.45) 09/12/17 04:24 POC ABG pCO2 53.5 (35-45) H 09/12/17 04:24 POC ABG pO2 79 (80-105) L 09/12/17 04:24 POC ABG HCO3 36.2 09/12/17 04:24 POC ABG Total CO2 38 09/12/17 04:24 POC ABG O2 Sat 96 09/12/17 04:24 POC ABG Base Excess 12 09/12/17 04:24 FiO2 30 % 09/12/17 04:24 Sodium 142 mmol/L (137-145) 09/11/17 06:00 Potassium 3.8 mmol/L (3.6-5.0) 09/11/17 06:00 Chloride 108.1 mmol/L (98-107) H 09/11/17 06:00 Carbon Dioxide 28 mmol/L (22-30) D 09/11/17 06:00 Anion Gap 10 mmol/L 09/11/17 06:00 BUN 30 mg/dL (9-20) H 09/11/17 06:00 Creatinine 0.6 mg/dL (0.8-1.5) L 09/11/17 06:00 Estimated GFR > 60 ml/min 09/11/17 06:00 BUN/Creatinine Ratio 50 % 09/11/17 06:00 Glucose 132 mg/dL (75-100) H 09/11/17 06:00 POC Glucose 189 (70-105) H 09/12/17 17:28 Lactic Acid 2.90 mmol/L (0.7-2.0) H* 09/06/17 08:03 Calcium 7.4 mg/dL (8.4-10.2) L D 09/11/17 06:00 Phosphorus 2.70 mg/dL (2.5-4.5) 09/10/17 04:50 Magnesium 1.80 mg/dL (1.7-2.3) 09/10/17 04:50 Total Bilirubin 0.30 mg/dL (0.1-1.2) 09/07/17 04:13 AST 150 units/L (5-40) H 09/07/17 04:13 ALT 381 units/L (7-56) H 09/07/17 04:13 Alkaline Phosphatase 103 units/L (35-129) 09/07/17 04:13 Lactate Dehydrogenase 571 units/L (91-180) H 09/05/17 10:55 Troponin T < 0.010 ng/mL (0.00-0.029) 09/01/17 23:27 C-Reactive Protein 8.70 mg/dL (0.00-1.30) H 09/08/17 05:30 NT-Pro-B Natriuret Pep 315.2 pg/mL (0-900) 09/01/17 23:27 Total Protein 7.0 g/dL (6.3-8.2) 09/07/17 04:13 Albumin 1.3 g/dL (3.9-5) L 09/07/17 04:13 Albumin/Globulin Ratio 0.2 % 09/07/17 04:13 Lipase 12 units/L (13-60) L 09/04/17 17:23 Vancomycin Trough 15.3 ug/mL (5.0-20.0) 09/04/17 17:23 Lymph Enumerat CD4/CD8 0.10 (0.86-5.00) L 09/05/17 14:30 % CD3 Cells 75 % (57-85) 09/05/17 14:30 Absolute CD3 Count 1105 cells/uL (840-3060) 09/05/17 14:30 % CD4 Cells 7 % (30-61) L 09/05/17 14:30 Absolute CD4 Count 101 cells/uL (490-1740) L 09/05/17 14:30 % CD8 Cells 66 % (12-42) H 09/05/17 14:30 Absolute CD8 Count 986 cells/uL (180-1170) 09/05/17 14:30 % CD19 Cells 4 % (6-29) L 09/05/17 14:30 Absolute CD19 Count 60 cells/uL (110-660) L 09/05/17 14:30 RPR Nonreactive (Nonreactive) 09/07/17 04:13 Hepatitis A IgM Ab Non-reactive (NonReactive) 09/05/17 10:55 Hep Bs Antigen Reactive (Negative) 09/05/17 10:55 Hep Bs Antibody, Quant <5 mIU/mL (>=10) L 09/07/17 04:13 Hep B Core Total Ab Reactive (Nonreactive) H 09/07/17 04:13 Hep B Core IgM Ab Non-reactive (NonReactive) 09/05/17 10:55 Hepatitis Be Antibody Nonreactive 09/07/17 04:13 Hepatitis Be Antigen Reactive H 09/07/17 04:13 Hepatitis C Antibody Non-reactive (NonReactive) 09/05/17 10:55 HIV-1 RNA PCR copies/ml 1750 Copies/mL H 09/05/17 14:30 HIV-1 RNA (PCR) log 3.24 Log cps/mL H 09/05/17 14:30 HIV-1 Genotyping see below 09/05/17 14:30 HIV 1&2 Antibody Rapid Reactive (Non React) 09/02/17 19:34 HIV P24 Antigen Non react (Non React) 09/02/17 19:34 Urine Legionella Ag Not detected (Not Detected) 09/02/17 13:55 TB (QFT) Gold In Tube Negative (Negative) 09/05/17 14:30 TB Test (QFT) Nil 0.04 IU/mL 09/05/17 14:30 TB Test Mitogen - Nil 2.28 IU/mL 09/05/17 14:30 TB Test Antigen - Nil 0.00 IU/mL 09/05/17 14:30 Miscellaneous Test Flexitest 1 09/06/17 11:30
[2017-09-12] MEDS: MIDAZOLAM 100 MG in NACL 0.9% 80 ML IV SCH (22:53)
[2017-09-13] MEDS: NOVOLOG SUB-Q SCH ×4 (00:21→18:15)
[2017-09-13] MEDS: VANCOMYCIN 1,500 MG in NACL 0.9% 500 ML 500 ML IV SCH ×2 (00:23→12:21)
[2017-09-13] MEDS: DUONEB *Not for PRN Use IH SCH ×4 (04:30→23:42)
[2017-09-13] MEDS: LASIX IV SCH (09:18)
[2017-09-13] MEDS: BACTRIM DS PO SCH (09:19)
[2017-09-13] MEDS: LOVENOX SUB-Q SCH (09:19)
[2017-09-13] MEDS: PEPCID PO SCH ×2 (09:19→22:27)
--- NOTE | 2017-09-13 09:21 | Progress Note ---
Assessment and Plan 52 y/o male, vet, admitted with acute respiratory failure thought secondary to pneumonia with lactic acidosis, found to have newly diagnosed HIV being treated empirically for PJP and with systolic heart failure 1. Today is day 11 of intubation. Tolerating PSV so far. Will discuss with son the possiblity of trach, but most likely will need this for vent weaning. 2. Abx therapy per ID 3. Continue daily lasix therapy for volume overload as long as BP and renal function will allow. Will order labs as none done this am. 4. Strict I/O 5. Continue feeds as tolerated 6. Overall prognosis is guarded to poor. CCT 31 minutes. Subjective Date of service: 09/13/17 Principal diagnosis: Septic shock, acute hypoxemic respiratory failure, [place] Interval history: Awake. Off sedation. Currently on PSV. No fluid spots large enough in abdomen to tap. Off pressors. Objective Vital Signs - 12hr 09/12/17 09/12/17 09/12/17 21:30 21:45 22:00 Temperature Pulse Rate 111 H 118 H 119 H Pulse Rate [ Anterior Bilateral Throughout] Pulse Rate [ From Monitor] Respiratory 16 17 13 Rate Respiratory Rate [Anterior Bilateral Throughout] Blood Pressure 122/69 128/73 132/88 O2 Sat by Pulse 99 100 99 Oximetry 09/12/17 09/12/17 09/12/17 22:07 22:15 22:30 Temperature Pulse Rate 120 H 115 H Pulse Rate [ 113 H Anterior Bilateral Throughout] Pulse Rate [ From Monitor] Respiratory 22 21 Rate Respiratory 21 Rate [Anterior Bilateral Throughout] Blood Pressure 142/91 142/98 O2 Sat by Pulse 97 97 Oximetry 09/12/17 09/12/17 09/12/17 22:45 23:00 23:15 Temperature Pulse Rate 93 H 92 H 89 Pulse Rate [ Anterior Bilateral Throughout] Pulse Rate [ From Monitor] Respiratory 20 21 13 Rate Respiratory Rate [Anterior Bilateral Throughout] Blood Pressure 137/72 131/68 126/70 O2 Sat by Pulse 97 97 97 Oximetry 09/12/17 09/12/17 09/12/17 23:30 23:35 23:45 Temperature Pulse Rate 100 H 100 H 84 Pulse Rate [ Anterior Bilateral Throughout] Pulse Rate [ From Monitor] Respiratory 16 17 Rate Respiratory Rate [Anterior Bilateral Throughout] Blood Pressure 118/69 118/69 126/70 O2 Sat by Pulse 97 97 97 Oximetry 09/13/17 09/13/17 09/13/17 00:00 00:15 00:30 Temperature 98.3 F Pulse Rate 86 85 79 Pulse Rate [ Anterior Bilateral Throughout] Pulse Rate [ 72 From Monitor] Respiratory 16 16 16 Rate Respiratory Rate [Anterior Bilateral Throughout] Blood Pressure 118/69 90/54 92/54 O2 Sat by Pulse 97 97 96 Oximetry 09/13/17 09/13/17 09/13/17 00:45 01:00 01:16 Temperature Pulse Rate 76 84 77 Pulse Rate [ Anterior Bilateral Throughout] Pulse Rate [ From Monitor] Respiratory 16 15 16 Rate Respiratory Rate [Anterior Bilateral Throughout] Blood Pressure 90/51 86/54 86/54 O2 Sat by Pulse 97 97 98 Oximetry 09/13/17 09/13/17 09/13/17 01:30 01:46 02:00 Temperature Pulse Rate 71 71 74 Pulse Rate [ 80 Anterior Bilateral Throughout] Pulse Rate [ From Monitor] Respiratory 16 16 16 Rate Respiratory 22 Rate [Anterior Bilateral Throughout] Blood Pressure 90/51 90/51 87/51 O2 Sat by Pulse 97 98 98 Oximetry 09/13/17 09/13/17 09/13/17 02:16 02:30 02:46 Temperature Pulse Rate 102 H 79 101 H Pulse Rate [ Anterior Bilateral Throughout] Pulse Rate [ From Monitor] Respiratory 17 18 19 Rate Respiratory Rate [Anterior Bilateral Throughout] Blood Pressure 87/51 87/51 87/51 O2 Sat by Pulse 98 98 97 Oximetry 09/13/17 09/13/17 09/13/17 03:00 03:16 03:30 Temperature Pulse Rate 92 H 95 H 107 H Pulse Rate [ Anterior Bilateral Throughout] Pulse Rate [ From Monitor] Respiratory 20 12 14 Rate Respiratory Rate [Anterior Bilateral Throughout] Blood Pressure 87/51 125/85 125/85 O2 Sat by Pulse 97 97 97 Oximetry 09/13/17 09/13/17 09/13/17 03:46 04:00 04:10 Temperature 98.5 F Pulse Rate 87 110 H Pulse Rate [ Anterior Bilateral Throughout] Pulse Rate [ From Monitor] Respiratory 20 22 16 Rate Respiratory Rate [Anterior Bilateral Throughout] Blood Pressure 125/85 125/85 O2 Sat by Pulse 97 97 97 Oximetry 09/13/17 09/13/17 09/13/17 04:16 04:30 04:46 Temperature Pulse Rate 91 H 97 H 105 H Pulse Rate [ Anterior Bilateral Throughout] Pulse Rate [ From Monitor] Respiratory 14 16 13 Rate Respiratory Rate [Anterior Bilateral Throughout] Blood Pressure 125/85 125/85 125/85 O2 Sat by Pulse 97 97 98 Oximetry 09/13/17 09/13/17 09/13/17 05:00 05:16 05:30 Temperature Pulse Rate 72 98 H 104 H Pulse Rate [ Anterior Bilateral Throughout] Pulse Rate [ From Monitor] Respiratory 17 17 12 Rate Respiratory Rate [Anterior Bilateral Throughout] Blood Pressure 110/66 110/66 110/66 O2 Sat by Pulse 97 98 97 Oximetry 09/13/17 09/13/17 09/13/17 05:46 06:00 06:16 Temperature Pulse Rate 72 74 86 Pulse Rate [ Anterior Bilateral Throughout] Pulse Rate [ From Monitor] Respiratory 16 19 16 Rate Respiratory Rate [Anterior Bilateral Throughout] Blood Pressure 110/66 126/66 126/66 O2 Sat by Pulse 98 98 98 Oximetry 09/13/17 09/13/17 09/13/17 06:30 06:46 06:48 Temperature Pulse Rate 87 84 Pulse Rate [ Anterior Bilateral Throughout] Pulse Rate [ 84 From Monitor] Respiratory 15 16 Rate Respiratory Rate [Anterior Bilateral Throughout] Blood Pressure 126/66 126/66 O2 Sat by Pulse 99 99 97 Oximetry 09/13/17 09/13/17 09/13/17 07:00 07:16 07:30 Temperature Pulse Rate 81 78 97 H Pulse Rate [ Anterior Bilateral Throughout] Pulse Rate [ From Monitor] Respiratory 16 16 13 Rate Respiratory Rate [Anterior Bilateral Throughout] Blood Pressure 80/43 80/43 101/62 O2 Sat by Pulse 99 99 99 Oximetry 09/13/17 09/13/17 09/13/17 07:46 08:00 08:16 Temperature 98.2 F Pulse Rate 101 H 102 H 111 H Pulse Rate [ Anterior Bilateral Throughout] Pulse Rate [ 102 H From Monitor] Respiratory 17 16 16 Rate Respiratory Rate [Anterior Bilateral Throughout] Blood Pressure 101/62 125/85 105/79 O2 Sat by Pulse 98 98 97 Oximetry 09/13/17 09/13/17 09/13/17 08:42 08:47 08:49 Temperature Pulse Rate 106 H 99 H Pulse Rate [ 108 H Anterior Bilateral Throughout] Pulse Rate [ From Monitor] Respiratory 23 Rate Respiratory 21 Rate [Anterior Bilateral Throughout] Blood Pressure 105/79 105/79 O2 Sat by Pulse 97 97 Oximetry 09/13/17 09:10 Temperature Pulse Rate Pulse Rate [ 127 H Anterior Bilateral Throughout] Pulse Rate [ From Monitor] Respiratory Rate Respiratory 23 Rate [Anterior Bilateral Throughout] Blood Pressure O2 Sat by Pulse Oximetry Constitutional: other (critically ill on vent, sedated) Eyes: non-icteric ENT: other (orally intubated and sedated) Neck: supple Effort: normal Ascultation: Bilateral: diminished breath sounds, rales, other (coarse BS bilaterally) Percussion: Bilateral: not dull Cardiovascular: regular rate and rhythm (sinus tach) Gastrointestinal: hypoactive bowel sounds, soft, non-tender, non-distended Extremities: no cyanosis, no edema, pink and warm Neurologic: normal mental status, non-focal exam, pupils equal and round, CN II- XII normal Psychiatric: other (unable to assess) CBC and BMP: 09/11/17 06:00 09/11/17 06:00 ABG, PT/INR, D-dimer: ABG POC ABG pH 7.457 (7.35-7.45) H 09/13/17 03:56 POC ABG pCO2 49.9 (35-45) H 09/13/17 03:56 POC ABG pO2 83 (80-105) 09/13/17 03:56 POC ABG HCO3 35.2 09/13/17 03:56 POC ABG Total CO2 37 09/13/17 03:56 POC ABG O2 Sat 96 09/13/17 03:56 PT/INR, D-dimer PT 14.7 Sec. (12.2-14.9) 09/12/17 10:29 INR 1.09 (0.87-1.13) 09/12/17 10:29 D-Dimer 976.43 ng/mlDDU (0-234) H 09/01/17 23:27 Abnormal lab findings: Abnormal Labs 09/01/17 09/01/17 09/01/17 19:00 19:00 23:27 WBC RBC Hgb 10.9 L Hct 32.3 L MCV 83 L MCH RDW 15.6 H Plt Count [place] % (Auto) Seg Neutrophils % Seg Neuts % (Manual) Lymphocytes % (Manual) Nucleated RBC % Seg Neutrophils # Man Lymphocytes # (Manual) PT INR Fibrinogen D-Dimer 976.43 H POC ABG pH POC ABG pCO2 POC ABG pO2 Sodium 133 L Potassium Chloride 96.4 L Carbon Dioxide BUN Creatinine Glucose 113 H POC Glucose Lactic Acid Calcium Phosphorus Magnesium AST ALT Lactate Dehydrogenase C-Reactive Protein Total Protein Albumin Lipase Lymph Enumerat CD4/CD8 % CD4 Cells Absolute CD4 Count % CD8 Cells % CD19 Cells Absolute CD19 Count Hep Bs Antibody, Quant Hep B Core Total Ab Hepatitis Be Antigen HIV-1 RNA PCR copies/ml HIV-1 RNA (PCR) log 09/01/17 09/02/17 09/02/17 23:27 01:25 07:36 WBC 2.2 L RBC 3.41 L Hgb 9.6 L Hct 28.9 L MCV MCH RDW 16.0 H Plt Count [place] % (Auto) 12.6 H Seg Neutrophils % 70.4 H Seg Neuts % (Manual) Lymphocytes % (Manual) Nucleated RBC % Seg Neutrophils # Man 1.1 L Lymphocytes # (Manual) 0.6 L PT INR Fibrinogen D-Dimer POC ABG pH POC ABG pCO2 POC ABG pO2 Sodium Potassium Chloride Carbon Dioxide BUN Creatinine Glucose POC Glucose Lactic Acid 3.30 H* 4.10 H* Calcium Phosphorus Magnesium AST ALT Lactate Dehydrogenase C-Reactive Protein Total Protein Albumin Lipase Lymph Enumerat CD4/CD8 % CD4 Cells Absolute CD4 Count % CD8 Cells % CD19 Cells Absolute CD19 Count Hep Bs Antibody, Quant Hep B Core Total Ab Hepatitis Be Antigen HIV-1 RNA PCR copies/ml HIV-1 RNA (PCR) log 09/02/17 09/02/17 09/02/17 07:36 07:36 07:36 WBC RBC Hgb Hct MCV MCH RDW Plt Count [place] % (Auto) Seg Neutrophils % Seg Neuts % (Manual) Lymphocytes % (Manual) Nucleated RBC % Seg Neutrophils # Man Lymphocytes # (Manual) PT 18.6 H INR 1.46 H Fibrinogen D-Dimer POC ABG pH POC ABG pCO2 POC ABG pO2 Sodium 136 L Potassium Chloride Carbon Dioxide BUN Creatinine Glucose POC Glucose Lactic Acid 3.80 H* Calcium Phosphorus Magnesium 1.20 L AST ALT Lactate Dehydrogenase C-Reactive Protein Total Protein 9.1 H Albumin 2.0 L Lipase Lymph Enumerat CD4/CD8 % CD4 Cells Absolute CD4 Count % CD8 Cells % CD19 Cells Absolute CD19 Count Hep Bs Antibody, Quant Hep B Core Total Ab Hepatitis Be Antigen HIV-1 RNA PCR copies/ml HIV-1 RNA (PCR) log 09/02/17 09/02/17 09/02/17 08:49 09:40 11:33 WBC RBC Hgb Hct MCV MCH RDW Plt Count [place] % (Auto) Seg Neutrophils % Seg Neuts % (Manual) Lymphocytes % (Manual) Nucleated RBC % Seg Neutrophils # Man Lymphocytes # (Manual) PT INR Fibrinogen D-Dimer POC ABG pH 7.313 L POC ABG pCO2 POC ABG pO2 116 H Sodium Potassium Chloride Carbon Dioxide BUN Creatinine Glucose POC Glucose Lactic Acid 3.60 H* 5.20 H* Calcium Phosphorus Magnesium AST ALT Lactate Dehydrogenase C-Reactive Protein Total Protein Albumin Lipase Lymph Enumerat CD4/CD8 % CD4 Cells Absolute CD4 Count % CD8 Cells % CD19 Cells Absolute CD19 Count Hep Bs Antibody, Quant Hep B Core Total Ab Hepatitis Be Antigen HIV-1 RNA PCR copies/ml HIV-1 RNA (PCR) log 09/02/17 09/02/17 09/02/17 19:34 23:37 23:40 WBC RBC Hgb Hct MCV MCH RDW Plt Count [place] % (Auto) Seg Neutrophils % Seg Neuts % (Manual) Lymphocytes % (Manual) Nucleated RBC % Seg Neutrophils # Man Lymphocytes # (Manual) PT INR Fibrinogen D-Dimer POC ABG pH POC ABG pCO2 POC ABG pO2 Sodium Potassium Chloride Carbon Dioxide BUN Creatinine Glucose 59 L POC Glucose 47 L Lactic Acid Calcium Phosphorus Magnesium AST ALT Lactate Dehydrogenase C-Reactive Protein 22.30 H Total Protein Albumin Lipase Lymph Enumerat CD4/CD8 % CD4 Cells Absolute CD4 Count % CD8 Cells % CD19 Cells Absolute CD19 Count Hep Bs Antibody, Quant Hep B Core Total Ab Hepatitis Be Antigen HIV-1 RNA PCR copies/ml HIV-1 RNA (PCR) log 09/03/17 09/03/17 09/03/17 00:06 05:15 05:15 WBC RBC 3.59 L Hgb 10.1 L Hct 31.5 L MCV MCH RDW 18.0 H Plt Count [place] % (Auto) Seg Neutrophils % Seg Neuts % (Manual) Lymphocytes % (Manual) 1.0 L Nucleated RBC % 1.0 H Seg Neutrophils # Man Lymphocytes # (Manual) 0.1 L PT INR Fibrinogen D-Dimer POC ABG pH POC ABG pCO2 POC ABG pO2 Sodium Potassium Chloride Carbon Dioxide BUN Creatinine Glucose POC Glucose 144 H Lactic Acid 9.10 H* Calcium Phosphorus Magnesium AST ALT Lactate Dehydrogenase C-Reactive Protein Total Protein Albumin Lipase Lymph Enumerat CD4/CD8 % CD4 Cells Absolute CD4 Count % CD8 Cells % CD19 Cells Absolute CD19 Count Hep Bs Antibody, Quant Hep B Core Total Ab Hepatitis Be Antigen HIV-1 RNA PCR copies/ml HIV-1 RNA (PCR) log 09/03/17 09/03/17 09/03/17 05:15 05:55 07:40 WBC RBC Hgb Hct MCV MCH RDW Plt Count [place] % (Auto) Seg Neutrophils % Seg Neuts % (Manual) Lymphocytes % (Manual) Nucleated RBC % Seg Neutrophils # Man Lymphocytes # (Manual) PT INR Fibrinogen D-Dimer POC ABG pH 6.999 L POC ABG pCO2 POC ABG pO2 64 L Sodium Potassium 5.6 H D Chloride 108.4 H Carbon Dioxide 11 L D BUN 30 H Creatinine Glucose 115 H POC Glucose Lactic Acid 9.20 H* Calcium 7.3 L D Phosphorus 6.40 H Magnesium AST 88 H ALT Lactate Dehydrogenase C-Reactive Protein Total Protein Albumin 1.7 L Lipase Lymph Enumerat CD4/CD8 % CD4 Cells Absolute CD4 Count % CD8 Cells % CD19 Cells Absolute CD19 Count Hep Bs Antibody, Quant Hep B Core Total Ab Hepatitis Be Antigen HIV-1 RNA PCR copies/ml HIV-1 RNA (PCR) log 09/03/17 09/03/17 09/03/17 09:55 12:03 13:17 WBC RBC Hgb Hct MCV MCH RDW Plt Count [place] % (Auto) Seg Neutrophils % Seg Neuts % (Manual) Lymphocytes % (Manual) Nucleated RBC % Seg Neutrophils # Man Lymphocytes # (Manual) PT INR Fibrinogen D-Dimer POC ABG pH POC ABG pCO2 POC ABG pO2 Sodium Potassium Chloride Carbon Dioxide BUN Creatinine Glucose POC Glucose 155 H Lactic Acid 9.50 H* 9.90 H* Calcium Phosphorus Magnesium AST ALT Lactate Dehydrogenase C-Reactive Protein Total Protein Albumin Lipase Lymph Enumerat CD4/CD8 % CD4 Cells Absolute CD4 Count % CD8 Cells % CD19 Cells Absolute CD19 Count Hep Bs Antibody, Quant Hep B Core Total Ab Hepatitis Be Antigen HIV-1 RNA PCR copies/ml HIV-1 RNA (PCR) log 09/03/17 09/03/17 09/03/17 15:55 17:13 18:02 WBC RBC Hgb Hct MCV MCH RDW Plt Count [place] % (Auto) Seg Neutrophils % Seg Neuts % (Manual) Lymphocytes % (Manual) Nucleated RBC % Seg Neutrophils # Man Lymphocytes # (Manual) PT INR Fibrinogen D-Dimer POC ABG pH POC ABG pCO2 POC ABG pO2 Sodium Potassium Chloride Carbon Dioxide BUN Creatinine Glucose POC Glucose 171 H Lactic Acid 9.60 H* 9.00 H* Calcium Phosphorus Magnesium AST ALT Lactate Dehydrogenase C-Reactive Protein Total Protein Albumin Lipase Lymph Enumerat CD4/CD8 % CD4 Cells Absolute CD4 Count % CD8 Cells % CD19 Cells Absolute CD19 Count Hep Bs Antibody, Quant Hep B Core Total Ab Hepatitis Be Antigen HIV-1 RNA PCR copies/ml HIV-1 RNA (PCR) log 09/03/17 09/03/17 09/04/17 20:29 23:02 04:00 WBC RBC Hgb Hct MCV MCH RDW Plt Count [place] % (Auto) Seg Neutrophils % Seg Neuts % (Manual) Lymphocytes % (Manual) Nucleated RBC % Seg Neutrophils # Man Lymphocytes # (Manual) PT INR Fibrinogen D-Dimer POC ABG pH POC ABG pCO2 POC ABG pO2 Sodium Potassium Chloride Carbon Dioxide BUN Creatinine Glucose POC Glucose 156 H Lactic Acid 9.00 H* 3.00 H* Calcium Phosphorus Magnesium AST ALT Lactate Dehydrogenase C-Reactive Protein Total Protein Albumin Lipase Lymph Enumerat CD4/CD8 % CD4 Cells Absolute CD4 Count % CD8 Cells % CD19 Cells Absolute CD19 Count Hep Bs Antibody, Quant Hep B Core Total Ab Hepatitis Be Antigen HIV-1 RNA PCR copies/ml HIV-1 RNA (PCR) log 09/04/17 09/04/17 09/04/17 04:00 04:00 09:00 WBC RBC 3.44 L Hgb 9.6 L Hct 29.0 L MCV MCH RDW 17.4 H Plt Count 124 L [place] % (Auto) Seg Neutrophils % Seg Neuts % (Manual) 91.0 H Lymphocytes % (Manual) 3.0 L Nucleated RBC % 2.0 H Seg Neutrophils # Man 9.9 H Lymphocytes # (Manual) 0.3 L PT 28.4 H INR 2.47 H Fibrinogen D-Dimer POC ABG pH POC ABG pCO2 POC ABG pO2 Sodium Potassium Chloride 110.1 H Carbon Dioxide BUN 29 H Creatinine Glucose 192 H POC Glucose Lactic Acid Calcium 6.8 L Phosphorus Magnesium AST 361 H ALT 315 H Lactate Dehydrogenase C-Reactive Protein Total Protein Albumin 1.6 L Lipase Lymph Enumerat CD4/CD8 % CD4 Cells Absolute CD4 Count % CD8 Cells % CD19 Cells Absolute CD19 Count Hep Bs Antibody, Quant Hep B Core Total Ab Hepatitis Be Antigen HIV-1 RNA PCR copies/ml HIV-1 RNA (PCR) log 0209/04/17 09/04/17 09:00 12:00 17:23 WBC RBC Hgb Hct MCV MCH RDW Plt Count [place] % (Auto) Seg Neutrophils % Seg Neuts % (Manual) Lymphocytes % (Manual) Nucleated RBC % Seg Neutrophils # Man Lymphocytes # (Manual) PT INR Fibrinogen 611 H D-Dimer POC ABG pH POC ABG pCO2 POC ABG pO2 Sodium Potassium Chloride Carbon Dioxide BUN Creatinine Glucose POC Glucose Lactic Acid 2.10 H* 3.40 H* Calcium Phosphorus Magnesium AST ALT Lactate Dehydrogenase C-Reactive Protein Total Protein Albumin Lipase Lymph Enumerat CD4/CD8 % CD4 Cells Absolute CD4 Count % CD8 Cells % CD19 Cells Absolute CD19 Count Hep Bs Antibody, Quant Hep B Core Total Ab Hepatitis Be Antigen HIV-1 RNA PCR copies/ml HIV-1 RNA (PCR) log 09/04/17 09/04/17 09/04/17 17:23 17:47 22:30 WBC RBC Hgb Hct MCV MCH RDW Plt Count [place] % (Auto) Seg Neutrophils % Seg Neuts % (Manual) Lymphocytes % (Manual) Nucleated RBC % Seg Neutrophils # Man Lymphocytes # (Manual) PT INR Fibrinogen D-Dimer POC ABG pH POC ABG pCO2 POC ABG pO2 Sodium Potassium Chloride Carbon Dioxide BUN Creatinine Glucose POC Glucose 107 H Lactic Acid 4.70 H* Calcium Phosphorus Magnesium AST ALT Lactate Dehydrogenase C-Reactive Protein Total Protein Albumin Lipase 12 L Lymph Enumerat CD4/CD8 % CD4 Cells Absolute CD4 Count % CD8 Cells % CD19 Cells Absolute CD19 Count Hep Bs Antibody, Quant Hep B Core Total Ab Hepatitis Be Antigen HIV-1 RNA PCR copies/ml HIV-1 RNA (PCR) log 09/04/17 09/05/17 09/05/17 23:08 05:31 06:00 WBC RBC Hgb Hct MCV MCH RDW Plt Count [place] % (Auto) Seg Neutrophils % Seg Neuts % (Manual) Lymphocytes % (Manual) Nucleated RBC % Seg Neutrophils # Man Lymphocytes # (Manual) PT INR Fibrinogen D-Dimer POC ABG pH 7.226 L POC ABG pCO2 65.4 H POC ABG pO2 61 L Sodium Potassium Chloride 112.7 H Carbon Dioxide BUN 31 H Creatinine Glucose 132 H POC Glucose 109 H Lactic Acid Calcium 7.7 L Phosphorus Magnesium AST 834 H ALT 898 H Lactate Dehydrogenase C-Reactive Protein Total Protein Albumin 1.4 L Lipase Lymph Enumerat CD4/CD8 % CD4 Cells Absolute CD4 Count % CD8 Cells % CD19 Cells Absolute CD19 Count Hep Bs Antibody, Quant Hep B Core Total Ab Hepatitis Be Antigen HIV-1 RNA PCR copies/ml HIV-1 RNA (PCR) log 09/05/17 09/05/17 09/05/17 06:00 06:35 10:26 WBC RBC Hgb Hct MCV MCH RDW Plt Count [place] % (Auto) Seg Neutrophils % Seg Neuts % (Manual) Lymphocytes % (Manual) Nucleated RBC % Seg Neutrophils # Man Lymphocytes # (Manual) PT INR Fibrinogen D-Dimer POC ABG pH 7.311 L POC ABG pCO2 58.5 H POC ABG pO2 213 H Sodium Potassium Chloride Carbon Dioxide BUN Creatinine Glucose POC Glucose 110 H Lactic Acid 4.50 H* Calcium Phosphorus Magnesium AST ALT Lactate Dehydrogenase C-Reactive Protein Total Protein Albumin Lipase Lymph Enumerat CD4/CD8 % CD4 Cells Absolute CD4 Count % CD8 Cells % CD19 Cells Absolute CD19 Count Hep Bs Antibody, Quant Hep B Core Total Ab Hepatitis Be Antigen HIV-1 RNA PCR copies/ml HIV-1 RNA (PCR) log 09/05/17 09/05/17 09/05/17 10:55 10:55 10:55 WBC 11.1 H RBC 3.38 L Hgb 9.3 L Hct 28.7 L MCV MCH RDW 16.7 H Plt Count 118 L [place] % (Auto) Seg Neutrophils % Seg Neuts % (Manual) 92.0 H Lymphocytes % (Manual) 4.0 L Nucleated RBC % 2.0 H Seg Neutrophils # Man 10.2 H Lymphocytes # (Manual) 0.4 L PT INR Fibrinogen D-Dimer POC ABG pH POC ABG pCO2 POC ABG pO2 Sodium Potassium Chloride Carbon Dioxide BUN Creatinine Glucose POC Glucose Lactic Acid 3.60 H* Calcium Phosphorus Magnesium AST ALT Lactate Dehydrogenase 571 H C-Reactive Protein Total Protein Albumin Lipase Lymph Enumerat CD4/CD8 % CD4 Cells Absolute CD4 Count % CD8 Cells % CD19 Cells Absolute CD19 Count Hep Bs Antibody, Quant Hep B Core Total Ab Hepatitis Be Antigen HIV-1 RNA PCR copies/ml HIV-1 RNA (PCR) log 09/05/17 09/05/17 09/05/17 12:05 14:30 14:30 WBC RBC Hgb Hct MCV MCH RDW Plt Count [place] % (Auto) Seg Neutrophils % Seg Neuts % (Manual) Lymphocytes % (Manual) Nucleated RBC % Seg Neutrophils # Man Lymphocytes # (Manual) PT INR Fibrinogen D-Dimer POC ABG pH POC ABG pCO2 POC ABG pO2 Sodium Potassium Chloride Carbon Dioxide BUN Creatinine Glucose POC Glucose 148 H Lactic Acid Calcium Phosphorus Magnesium AST ALT Lactate Dehydrogenase C-Reactive Protein Total Protein Albumin Lipase Lymph Enumerat CD4/CD8 0.10 L % CD4 Cells 7 L Absolute CD4 Count 101 L % CD8 Cells 66 H % CD19 Cells 4 L Absolute CD19 Count 60 L Hep Bs Antibody, Quant Hep B Core Total Ab Hepatitis Be Antigen HIV-1 RNA PCR copies/ml 1750 H HIV-1 RNA (PCR) log 3.24 H 09/05/17 09/05/17 09/05/17 16:30 17:42 19:55 WBC RBC Hgb Hct MCV MCH RDW Plt Count [place] % (Auto) Seg Neutrophils % Seg Neuts % (Manual) Lymphocytes % (Manual) Nucleated RBC % Seg Neutrophils # Man Lymphocytes # (Manual) PT INR Fibrinogen D-Dimer POC ABG pH POC ABG pCO2 POC ABG pO2 Sodium Potassium Chloride Carbon Dioxide BUN Creatinine Glucose POC Glucose 183 H Lactic Acid 3.50 H* 3.60 H* Calcium Phosphorus Magnesium AST ALT Lactate Dehydrogenase C-Reactive Protein Total Protein Albumin Lipase Lymph Enumerat CD4/CD8 % CD4 Cells Absolute CD4 Count % CD8 Cells % CD19 Cells Absolute CD19 Count Hep Bs Antibody, Quant Hep B Core Total Ab Hepatitis Be Antigen HIV-1 RNA PCR copies/ml HIV-1 RNA (PCR) log 09/05/17 09/06/17 09/06/17 23:29 03:58 05:33 WBC RBC Hgb Hct MCV MCH RDW Plt Count [place] % (Auto) Seg Neutrophils % Seg Neuts % (Manual) Lymphocytes % (Manual) Nucleated RBC % Seg Neutrophils # Man Lymphocytes # (Manual) PT INR Fibrinogen D-Dimer POC ABG pH POC ABG pCO2 62.5 H POC ABG pO2 141 H Sodium Potassium Chloride Carbon Dioxide BUN Creatinine Glucose POC Glucose 203 H 207 H Lactic Acid Calcium Phosphorus Magnesium AST ALT Lactate Dehydrogenase C-Reactive Protein Total Protein Albumin Lipase Lymph Enumerat CD4/CD8 % CD4 Cells Absolute CD4 Count % CD8 Cells % CD19 Cells Absolute CD19 Count Hep Bs Antibody, Quant Hep B Core Total Ab Hepatitis Be Antigen HIV-1 RNA PCR copies/ml HIV-1 RNA (PCR) log 09/06/17 09/06/17 09/06/17 06:15 06:15 06:15 WBC RBC 3.26 L Hgb 9.0 L Hct 27.5 L MCV MCH RDW 16.7 H Plt Count 104 L [place] % (Auto) Seg Neutrophils % Seg Neuts % (Manual) 97.0 H Lymphocytes % (Manual) 2.0 L Nucleated RBC % Seg Neutrophils # Man 8.1 H Lymphocytes # (Manual) 0.2 L PT INR Fibrinogen D-Dimer POC ABG pH POC ABG pCO2 POC ABG pO2 Sodium 150 H Potassium Chloride 110.9 H Carbon Dioxide 31 H BUN 34 H Creatinine Glucose 207 H POC Glucose Lactic Acid 2.90 H* Calcium 8.2 L Phosphorus Magnesium AST 346 H ALT 634 H Lactate Dehydrogenase C-Reactive Protein Total Protein Albumin 1.5 L Lipase Lymph Enumerat CD4/CD8 % CD4 Cells Absolute CD4 Count % CD8 Cells % CD19 Cells Absolute CD19 Count Hep Bs Antibody, Quant Hep B Core Total Ab Hepatitis Be Antigen HIV-1 RNA PCR copies/ml HIV-1 RNA (PCR) log 09/06/17 09/06/17 09/06/17 08:03 11:32 18:04 WBC RBC Hgb Hct MCV MCH RDW Plt Count [place] % (Auto) Seg Neutrophils % Seg Neuts % (Manual) Lymphocytes % (Manual) Nucleated RBC % Seg Neutrophils # Man Lymphocytes # (Manual) PT INR Fibrinogen D-Dimer POC ABG pH POC ABG pCO2 POC ABG pO2 Sodium Potassium Chloride Carbon Dioxide BUN Creatinine Glucose POC Glucose 169 H 130 H Lactic Acid 2.90 H* Calcium Phosphorus Magnesium AST ALT Lactate Dehydrogenase C-Reactive Protein Total Protein Albumin Lipase Lymph Enumerat CD4/CD8 % CD4 Cells Absolute CD4 Count % CD8 Cells % CD19 Cells Absolute CD19 Count Hep Bs Antibody, Quant Hep B Core Total Ab Hepatitis Be Antigen HIV-1 RNA PCR copies/ml HIV-1 RNA (PCR) log 09/07/17 09/07/17 09/07/17 00:03 04:13 04:13 WBC RBC Hgb Hct MCV MCH RDW Plt Count [place] % (Auto) Seg Neutrophils % Seg Neuts % (Manual) Lymphocytes % (Manual) Nucleated RBC % Seg Neutrophils # Man Lymphocytes # (Manual) PT INR Fibrinogen D-Dimer POC ABG pH POC ABG pCO2 POC ABG pO2 Sodium 152 H Potassium 3.5 L Chloride 114.9 H Carbon Dioxide 34 H BUN 35 H Creatinine Glucose 149 H POC Glucose 123 H Lactic Acid Calcium Phosphorus Magnesium AST 150 H ALT 381 H Lactate Dehydrogenase C-Reactive Protein Total Protein Albumin 1.3 L Lipase Lymph Enumerat CD4/CD8 % CD4 Cells Absolute CD4 Count % CD8 Cells % CD19 Cells Absolute CD19 Count Hep Bs Antibody, Quant Hep B Core Total Ab Reactive H Hepatitis Be Antigen HIV-1 RNA PCR copies/ml HIV-1 RNA (PCR) log 09/07/17 09/07/17 09/07/17 04:13 04:13 04:33 WBC RBC Hgb Hct MCV MCH RDW Plt Count [place] % (Auto) Seg Neutrophils % Seg Neuts % (Manual) Lymphocytes % (Manual) Nucleated RBC % Seg Neutrophils # Man Lymphocytes # (Manual) PT INR Fibrinogen D-Dimer POC ABG pH 7.590 H POC ABG pCO2 POC ABG pO2 179 H Sodium Potassium Chloride Carbon Dioxide BUN Creatinine Glucose POC Glucose Lactic Acid Calcium Phosphorus Magnesium AST ALT Lactate Dehydrogenase C-Reactive Protein Total Protein Albumin Lipase Lymph Enumerat CD4/CD8 % CD4 Cells Absolute CD4 Count % CD8 Cells % CD19 Cells Absolute CD19 Count Hep Bs Antibody, Quant <5 L Hep B Core Total Ab Hepatitis Be Antigen Reactive H HIV-1 RNA PCR copies/ml HIV-1 RNA (PCR) log 09/07/17 09/07/17 09/07/17 05:05 08:20 11:34 WBC 11.9 H RBC 3.11 L Hgb 8.4 L Hct 26.0 L MCV MCH 27 L RDW 16.2 H Plt Count 109 L Nicholas % (Auto) Seg Neutrophils % Seg Neuts % (Manual) 93.0 H Lymphocytes % (Manual) 1.0 L Nucleated RBC % Seg Neutrophils # Man 11.1 H Lymphocytes # (Manual) 0.1 L PT INR Fibrinogen D-Dimer POC ABG pH POC ABG pCO2 POC ABG pO2 Sodium Potassium Chloride Carbon Dioxide BUN Creatinine Glucose POC Glucose 168 H 156 H Lactic Acid Calcium Phosphorus Magnesium AST ALT Lactate Dehydrogenase C-Reactive Protein Total Protein Albumin Lipase Lymph Enumerat CD4/CD8 % CD4 Cells Absolute CD4 Count % CD8 Cells % CD19 Cells Absolute CD19 Count Hep Bs Antibody, Quant Hep B Core Total Ab Hepatitis Be Antigen HIV-1 RNA PCR copies/ml HIV-1 RNA (PCR) log 09/07/17 09/07/17 09/07/17 18:13 20:14 20:14 WBC 14.6 H RBC 3.36 L Hgb 9.2 L Hct 28.3 L MCV MCH 27 L RDW 16.1 H Plt Count 120 L Nicholas % (Auto) Seg Neutrophils % Seg Neuts % (Manual) 93.0 H Lymphocytes % (Manual) 2.0 L Nucleated RBC % Seg Neutrophils # Man 13.6 H Lymphocytes # (Manual) 0.3 L PT INR Fibrinogen D-Dimer POC ABG pH POC ABG pCO2 POC ABG pO2 Sodium 154 H Potassium 3.4 L Chloride 114.7 H Carbon Dioxide 34 H BUN 37 H Creatinine Glucose 131 H POC Glucose 136 H Lactic Acid Calcium Phosphorus Magnesium AST ALT Lactate Dehydrogenase C-Reactive Protein Total Protein Albumin Lipase Lymph Enumerat CD4/CD8 % CD4 Cells Absolute CD4 Count % CD8 Cells % CD19 Cells Absolute CD19 Count Hep Bs Antibody, Quant Hep B Core Total Ab Hepatitis Be Antigen HIV-1 RNA PCR copies/ml HIV-1 RNA (PCR) log 09/08/17 09/08/17 09/08/17 05:15 05:30 05:30 WBC 13.6 H RBC 3.29 L Hgb 9.1 L Hct 27.4 L MCV 83 L MCH RDW 15.8 H Plt Count 111 L Nicholas % (Auto) Seg Neutrophils % Seg Neuts % (Manual) 94.0 H Lymphocytes % (Manual) 4.0 L Nucleated RBC % 1.0 H Seg Neutrophils # Man 12.8 H Lymphocytes # (Manual) 0.5 L PT INR Fibrinogen D-Dimer POC ABG pH 7.460 H POC ABG pCO2 54.7 H POC ABG pO2 209 H Sodium Potassium Chloride Carbon Dioxide BUN Creatinine Glucose POC Glucose Lactic Acid Calcium Phosphorus Magnesium AST ALT Lactate Dehydrogenase C-Reactive Protein 8.70 H Total Protein Albumin Lipase Lymph Enumerat CD4/CD8 % CD4 Cells Absolute CD4 Count % CD8 Cells % CD19 Cells Absolute CD19 Count Hep Bs Antibody, Quant Hep B Core Total Ab Hepatitis Be Antigen HIV-1 RNA PCR copies/ml HIV-1 RNA (PCR) log 09/08/17 09/08/17 09/08/17 05:30 12:24 17:19 WBC RBC Hgb Hct MCV MCH RDW Plt Count Nicholas % (Auto) Seg Neutrophils % Seg Neuts % (Manual) Lymphocytes % (Manual) Nucleated RBC % Seg Neutrophils # Man Lymphocytes # (Manual) PT INR Fibrinogen D-Dimer POC ABG pH POC ABG pCO2 POC ABG pO2 Sodium 154 H Potassium Chloride 114.3 H Carbon Dioxide 36 H BUN 39 H Creatinine Glucose 163 H POC Glucose 181 H 170 H Lactic Acid Calcium Phosphorus Magnesium AST ALT Lactate Dehydrogenase C-Reactive Protein Total Protein Albumin Lipase Lymph Enumerat CD4/CD8 % CD4 Cells Absolute CD4 Count % CD8 Cells % CD19 Cells Absolute CD19 Count Hep Bs Antibody, Quant Hep B Core Total Ab Hepatitis Be Antigen HIV-1 RNA PCR copies/ml HIV-1 RNA (PCR) log 09/08/17 09/09/17 09/09/17 23:51 04:00 04:00 WBC 20.1 H RBC 3.37 L Hgb 9.2 L Hct 28.0 L MCV 83 L MCH 27 L RDW 15.7 H Plt Count 123 L Nicholas % (Auto) Seg Neutrophils % Seg Neuts % (Manual) 86.0 H Lymphocytes % (Manual) 9.0 L Nucleated RBC % Seg Neutrophils # Man 17.3 H Lymphocytes # (Manual) PT INR Fibrinogen D-Dimer POC ABG pH POC ABG pCO2 POC ABG pO2 Sodium 150 H Potassium 3.0 L Chloride 107.7 H Carbon Dioxide 35 H BUN 39 H Creatinine Glucose 174 H POC Glucose 185 H Lactic Acid Calcium Phosphorus Magnesium AST ALT Lactate Dehydrogenase C-Reactive Protein Total Protein Albumin Lipase Lymph Enumerat CD4/CD8 % CD4 Cells Absolute CD4 Count % CD8 Cells % CD19 Cells Absolute CD19 Count Hep Bs Antibody, Quant Hep B Core Total Ab Hepatitis Be Antigen HIV-1 RNA PCR copies/ml HIV-1 RNA (PCR) log 09/09/17 09/09/17 09/09/17 04:34 05:57 12:04 WBC RBC Hgb Hct MCV MCH RDW Plt Count Nicholas % (Auto) Seg Neutrophils % Seg Neuts % (Manual) Lymphocytes % (Manual) Nucleated RBC % Seg Neutrophils # Man Lymphocytes # (Manual) PT INR Fibrinogen D-Dimer POC ABG pH 7.575 H POC ABG pCO2 POC ABG pO2 63 L Sodium Potassium Chloride Carbon Dioxide BUN Creatinine Glucose POC Glucose 170 H 126 H Lactic Acid Calcium Phosphorus Magnesium AST ALT Lactate Dehydrogenase C-Reactive Protein Total Protein Albumin Lipase Lymph Enumerat CD4/CD8 % CD4 Cells Absolute CD4 Count % CD8 Cells % CD19 Cells Absolute CD19 Count Hep Bs Antibody, Quant Hep B Core Total Ab Hepatitis Be Antigen HIV-1 RNA PCR copies/ml HIV-1 RNA (PCR) log 09/09/17 09/10/17 09/10/17 17:31 00:02 03:46 WBC RBC Hgb Hct MCV MCH RDW Plt Count Nicholas % (Auto) Seg Neutrophils % Seg Neuts % (Manual) Lymphocytes % (Manual) Nucleated RBC % Seg Neutrophils # Man Lymphocytes # (Manual) PT INR Fibrinogen D-Dimer POC ABG pH 7.529 H POC ABG pCO2 45.6 H POC ABG pO2 69 L Sodium Potassium Chloride Carbon Dioxide BUN Creatinine Glucose POC Glucose 180 H 190 H Lactic Acid Calcium Phosphorus Magnesium AST ALT Lactate Dehydrogenase C-Reactive Protein Total Protein Albumin Lipase Lymph Enumerat CD4/CD8 % CD4 Cells Absolute CD4 Count % CD8 Cells % CD19 Cells Absolute CD19 Count Hep Bs Antibody, Quant Hep B Core Total Ab Hepatitis Be Antigen HIV-1 RNA PCR copies/ml HIV-1 RNA (PCR) log 09/10/17 09/10/17 09/10/17 04:44 04:50 06:19 WBC 21.7 H RBC 3.32 L Hgb 9.2 L Hct 28.0 L MCV MCH RDW 15.3 H Plt Count Nicholas % (Auto) Seg Neutrophils % Seg Neuts % (Manual) 96.0 H Lymphocytes % (Manual) 4.0 L Nucleated RBC % Seg Neutrophils # Man 20.8 H Lymphocytes # (Manual) 0.9 L PT INR Fibrinogen D-Dimer POC ABG pH POC ABG pCO2 POC ABG pO2 Sodium 149 H Potassium Chloride 109.8 H Carbon Dioxide 36 H BUN 34 H Creatinine 0.7 L Glucose 139 H POC Glucose 154 H Lactic Acid Calcium Phosphorus Magnesium AST ALT Lactate Dehydrogenase C-Reactive Protein Total Protein Albumin Lipase Lymph Enumerat CD4/CD8 % CD4 Cells Absolute CD4 Count % CD8 Cells % CD19 Cells Absolute CD19 Count Hep Bs Antibody, Quant Hep B Core Total Ab Hepatitis Be Antigen HIV-1 RNA PCR copies/ml HIV-1 RNA (PCR) log 09/10/17 09/10/17 09/10/17 11:58 17:15 23:24 WBC RBC Hgb Hct MCV MCH RDW Plt Count Nicholas % (Auto) Seg Neutrophils % Seg Neuts % (Manual) Lymphocytes % (Manual) Nucleated RBC % Seg Neutrophils # Man Lymphocytes # (Manual) PT INR Fibrinogen D-Dimer POC ABG pH POC ABG pCO2 POC ABG pO2 Sodium Potassium Chloride Carbon Dioxide BUN Creatinine Glucose POC Glucose 204 H 193 H 177 H Lactic Acid Calcium Phosphorus Magnesium AST ALT Lactate Dehydrogenase C-Reactive Protein Total Protein Albumin Lipase Lymph Enumerat CD4/CD8 % CD4 Cells Absolute CD4 Count % CD8 Cells % CD19 Cells Absolute CD19 Count Hep Bs Antibody, Quant Hep B Core Total Ab Hepatitis Be Antigen HIV-1 RNA PCR copies/ml HIV-1 RNA (PCR) log 09/11/17 09/11/17 09/11/17 04:03 05:39 06:00 WBC 15.9 H RBC 2.93 L Hgb 7.9 L Hct 24.9 L MCV MCH 27 L RDW 15.6 H Plt Count Nicholas % (Auto) Seg Neutrophils % Seg Neuts % (Manual) 99.0 H Lymphocytes % (Manual) 0 L Nucleated RBC % Seg Neutrophils # Man 15.7 H Lymphocytes # (Manual) 0.0 L PT INR Fibrinogen D-Dimer POC ABG pH 7.572 H POC ABG pCO2 POC ABG pO2 113 H Sodium Potassium Chloride Carbon Dioxide BUN Creatinine Glucose POC Glucose 144 H Lactic Acid Calcium Phosphorus Magnesium AST ALT Lactate Dehydrogenase C-Reactive Protein Total Protein Albumin Lipase Lymph Enumerat CD4/CD8 % CD4 Cells Absolute CD4 Count % CD8 Cells % CD19 Cells Absolute CD19 Count Hep Bs Antibody, Quant Hep B Core Total Ab Hepatitis Be Antigen HIV-1 RNA PCR copies/ml HIV-1 RNA (PCR) log 09/11/17 09/11/17 09/11/17 06:00 11:48 18:01 WBC RBC Hgb Hct MCV MCH RDW Plt Count Nicholas % (Auto) Seg Neutrophils % Seg Neuts % (Manual) Lymphocytes % (Manual) Nucleated RBC % Seg Neutrophils # Man Lymphocytes # (Manual) PT INR Fibrinogen D-Dimer POC ABG pH POC ABG pCO2 POC ABG pO2 Sodium Potassium Chloride 108.1 H Carbon Dioxide BUN 30 H Creatinine 0.6 L Glucose 132 H POC Glucose 179 H 135 H Lactic Acid Calcium 7.4 L D Phosphorus Magnesium AST ALT Lactate Dehydrogenase C-Reactive Protein Total Protein Albumin Lipase Lymph Enumerat CD4/CD8 % CD4 Cells Absolute CD4 Count % CD8 Cells % CD19 Cells Absolute CD19 Count Hep Bs Antibody, Quant Hep B Core Total Ab Hepatitis Be Antigen HIV-1 RNA PCR copies/ml HIV-1 RNA (PCR) log 09/12/17 09/12/17 09/12/17 00:22 04:24 06:41 WBC RBC Hgb Hct MCV MCH RDW Plt Count Nicholas % (Auto) Seg Neutrophils % Seg Neuts % (Manual) Lymphocytes % (Manual) Nucleated RBC % Seg Neutrophils # Man Lymphocytes # (Manual) PT INR Fibrinogen D-Dimer POC ABG pH POC ABG pCO2 53.5 H POC ABG pO2 79 L Sodium Potassium Chloride Carbon Dioxide BUN Creatinine Glucose POC Glucose 164 H 202 H Lactic Acid Calcium Phosphorus Magnesium AST ALT Lactate Dehydrogenase C-Reactive Protein Total Protein Albumin Lipase Lymph Enumerat CD4/CD8 % CD4 Cells Absolute CD4 Count % CD8 Cells % CD19 Cells Absolute CD19 Count Hep Bs Antibody, Quant Hep B Core Total Ab Hepatitis Be Antigen HIV-1 RNA PCR copies/ml HIV-1 RNA (PCR) log 09/12/17 09/12/17 09/12/17 12:17 17:28 21:44 WBC RBC Hgb Hct MCV MCH RDW Plt Count Nicholas % (Auto) Seg Neutrophils % Seg Neuts % (Manual) Lymphocytes % (Manual) Nucleated RBC % Seg Neutrophils # Man Lymphocytes # (Manual) PT INR Fibrinogen D-Dimer POC ABG pH POC ABG pCO2 POC ABG pO2 Sodium Potassium Chloride Carbon Dioxide BUN Creatinine Glucose POC Glucose 157 H 189 H Lactic Acid Calcium Phosphorus Magnesium AST ALT Lactate Dehydrogenase C-Reactive Protein 1.60 H Total Protein Albumin Lipase Lymph Enumerat CD4/CD8 % CD4 Cells Absolute CD4 Count % CD8 Cells % CD19 Cells Absolute CD19 Count Hep Bs Antibody, Quant Hep B Core Total Ab Hepatitis Be Antigen HIV-1 RNA PCR copies/ml HIV-1 RNA (PCR) log 09/13/17 09/13/17 09/13/17 00:16 03:56 05:47 WBC RBC Hgb Hct MCV MCH RDW Plt Count Nicholas % (Auto) Seg Neutrophils % Seg Neuts % (Manual) Lymphocytes % (Manual) Nucleated RBC % Seg Neutrophils # Man Lymphocytes # (Manual) PT INR Fibrinogen D-Dimer POC ABG pH 7.457 H POC ABG pCO2 49.9 H POC ABG pO2 Sodium Potassium Chloride Carbon Dioxide BUN Creatinine Glucose POC Glucose 164 H 190 H Lactic Acid Calcium Phosphorus Magnesium AST ALT Lactate Dehydrogenase C-Reactive Protein Total Protein Albumin Lipase Lymph Enumerat CD4/CD8 % CD4 Cells Absolute CD4 Count % CD8 Cells % CD19 Cells Absolute CD19 Count Hep Bs Antibody, Quant Hep B Core Total Ab Hepatitis Be Antigen HIV-1 RNA PCR copies/ml HIV-1 RNA (PCR) log
[2017-09-13 10:00] LABS: BUN/Creatinine Ratio 55; Blood Urea Nitrogen 33 mg/dL (9-20); Calcium 9.2 mg/dL (8.4-10.2); Hemolysis Index 3
[2017-09-13] MEDS ORDERED: ATIVAN IV ONE ×2 (10:30→14:00)
[2017-09-13] MEDS: MAXIPIME 2 GM in NACL 0.9% 20 ML IV SCH ×2 (13:17→22:27)
--- NOTE | 2017-09-13 17:43 | Progress Note ---
Assessment and Plan Assessment and plan: 52-year-old male presents to the emergency department with complaint of shortness of breath and some midsternal right-sided chest discomfort with inspiration that started earlier this afternoon and radiates towards the back. The patient was just discharged from the [facility] a few days ago after treated for bilateral pneumonia. He is on Bactrim and just finished a course of antifungal medication for oral thrush. He does not smoke or use illicit drugs. His physicians are through the [facility]. Patient was recently discharged from a 6 day hospital stay at the [facility]. He denies any leg swelling, nausea, vomiting or fever. Septic shock due to underlying pneumonia Pneumonia bacteria - Ramón neg rods, Gram Negative bacteremia Patient is on Bactrim and azithromycin for prophylaxis Acute hypoxemic respiratory failure intubated 09/01/17, on MV >96 hours Hyperkalemia - corrected Anemia of chronic disease Hypernatremia multiple liver masses suspicious for metastatic disease Portal vein thrombosis? 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 The aggregate critical care time was [34] minutes. This time is in addition to time spent performing reported procedures but includes the following: [x] Data Review and interpretation [x] Patient assessment and monitoring of vital signs [x] Documentation [x] Medication orders and management History Interval history: Was seen and evaluated this morning, patient is intubated and on mechanical ventilation. Hospitalist Physical - Physical exam Narrative exam: Patient is intubated and on mechanical ventilation. The patient appeared well nourished and normally developed. Vital signs as documented. Head exam is unremarkable. No scleral icterus . Neck is without jugular venous distension, thyromegaly, or carotid bruits. Lungs are clear to auscultation. Cardiac exam reveals regular rate and Rhythm. First and second heart sounds normal. No murmurs, rubs or gallops. Abdominal exam reveals normal bowel sounds, no masses, no organomegaly and no aortic enlargement. Extremities are nonedematous and both femoral and pedal pulses are normal. R D [employer]: alert but intubated and couldn't talk. - Constitutional Vitals: Temp Pulse Resp BP Pulse Ox 98.3 F 110 H 18 127/80 99 09/13/17 16:00 09/13/17 16:15 09/13/17 16:31 09/13/17 16:31 09/13/17 16:31 General appearance: Present: no acute distress, well-nourished, other (intubated ) Results - Labs CBC & Chem 7: 09/11/17 06:00 09/13/17 09:24 Labs: Laboratory Last Values WBC 15.9 K/mm3 (4.5-11.0) H 09/11/17 06:00 RBC 2.93 M/mm3 (3.65-5.03) L 09/11/17 06:00 Hgb 7.9 gm/dl (11.8-15.2) L 09/11/17 06:00 Hct 24.9 % (35.5-45.6) L 09/11/17 06:00 MCV 85 fl (84-94) 09/11/17 06:00 MCH 27 pg (28-32) L 09/11/17 06:00 MCHC 32 % (32-34) 09/11/17 06:00 RDW 15.6 % (13.2-15.2) H 09/11/17 06:00 Plt Count 147 K/mm3 (140-440) 09/11/17 06:00 Mcclain % (Auto) 12.6 % (0.0-7.3) H 09/02/17 07:36 Eos % (Auto) 0.3 % (0.0-4.3) 09/02/17 07:36 Mcclain # 0.4 K/mm3 (0.0-0.8) 09/02/17 07:36 Eos # 0.0 K/mm3 (0.0-0.4) 09/02/17 07:36 Baso # 0.0 K/mm3 (0.0-0.1) 09/02/17 07:36 Add Manual Diff Complete 09/11/17 06:00 Total Counted 100 09/11/17 06:00 Seg Neutrophils % Software Security Architect 09/11/17 06:00 Seg Neuts % (Manual) 99.0 % (40.0-70.0) H 09/11/17 06:00 Band Neutrophils % 0 % 09/11/17 06:00 Lymphocytes % (Manual) 0 % (13.4-35.0) L 09/11/17 06:00 Reactive Lymphs % (Man) 0 % 09/11/17 06:00 Monocytes % (Manual) 1.0 % (0.0-7.3) 09/11/17 06:00 Eosinophils % (Manual) 0 % (0.0-4.3) 09/11/17 06:00 Basophils % (Manual) 0 % (0.0-1.8) 09/11/17 06:00 Metamyelocytes % 0 % 09/11/17 06:00 Myelocytes % 0 % 09/11/17 06:00 Promyelocytes % 0 % 09/11/17 06:00 Blast Cells % 0 % 09/11/17 06:00 Nucleated RBC % Not Reportable 09/11/17 06:00 Seg Neutrophils # 2.1 K/mm3 (1.8-7.7) 09/02/17 07:36 Seg Neutrophils # Man 15.7 K/mm3 (1.8-7.7) H 09/11/17 06:00 Band Neutrophils # 0.0 K/mm3 09/11/17 06:00 Abs Lymphs (Manual) 1470 cells/uL (850-3900) 09/05/17 14:30 Lymphocytes # (Manual) 0.0 K/mm3 (1.2-5.4) L 09/11/17 06:00 Abs React Lymphs (Man) 0.0 K/mm3 09/11/17 06:00 Monocytes # (Manual) 0.2 K/mm3 (0.0-0.8) 09/11/17 06:00 Eosinophils # (Manual) 0.0 K/mm3 (0.0-0.4) 09/11/17 06:00 Basophils # (Manual) 0.0 K/mm3 (0.0-0.1) 09/11/17 06:00 Metamyelocytes # 0.0 K/mm3 09/11/17 06:00 Myelocytes # 0.0 K/mm3 09/11/17 06:00 Promyelocytes # 0.0 K/mm3 09/11/17 06:00 Blast Cells # 0.0 K/mm3 09/11/17 06:00 WBC Morphology Not Reportable 09/11/17 06:00 Hypersegmented Neuts Not Reportable 09/11/17 06:00 Hyposegmented Neuts Not Reportable 09/11/17 06:00 Hypogranular Neuts Not Reportable 09/11/17 06:00 Smudge Cells Not Reportable 09/11/17 06:00 Toxic Granulation Not Reportable 09/11/17 06:00 Toxic Vacuolation Not Reportable 09/11/17 06:00 Dohle Bodies Not Reportable 09/11/17 06:00 Pelger-Huet Anomaly Not Reportable 09/11/17 06:00 Efren Rods Not Reportable 09/11/17 06:00 Platelet Estimate Cons 09/11/17 06:00 Clumped Platelets Not Reportable 09/11/17 06:00 Plt Clumps, EDTA Not Reportable 09/11/17 06:00 Large Platelets Few 09/11/17 06:00 Giant Platelets Not Reportable 09/11/17 06:00 Platelet Satelliting Not Reportable 09/11/17 06:00 Plt Morphology Comment Not Reportable 09/11/17 06:00 RBC Morphology Not Reportable 09/11/17 06:00 Dimorphic RBCs Not Reportable 09/11/17 06:00 Polychromasia Not Reportable 09/11/17 06:00 Hypochromasia Not Reportable 09/11/17 06:00 Poikilocytosis Not Reportable 09/11/17 06:00 Anisocytosis 1+ 09/11/17 06:00 Microcytosis Not Reportable 09/11/17 06:00 Macrocytosis Not Reportable 09/11/17 06:00 Spherocytes Not Reportable 09/11/17 06:00 Pappenheimer Bodies Not Reportable 09/11/17 06:00 Sickle Cells Not Reportable 09/11/17 06:00 Target Cells Not Reportable 09/11/17 06:00 Tear Drop Cells Not Reportable 09/11/17 06:00 Ovalocytes Not Reportable 09/11/17 06:00 Helmet Cells Not Reportable 09/11/17 06:00 Mai-Meraux Bodies Not Reportable 09/11/17 06:00 [place] Rings Not Reportable 09/11/17 06:00 [place] Cells Not Reportable 09/11/17 06:00 Bite Cells Not Reportable 09/11/17 06:00 Crenated Cell Not Reportable 09/11/17 06:00 Elliptocytes Not Reportable 09/11/17 06:00 Acanthocytes (Spur) Not Reportable 09/11/17 06:00 Rouleaux Not Reportable 09/11/17 06:00 Hemoglobin C Crystals Not Reportable 09/11/17 06:00 Schistocytes Not Reportable 09/11/17 06:00 Malaria parasites Not Reportable 09/11/17 06:00 Scott Bodies Not Reportable 09/11/17 06:00 Hem Pathologist Commnt No 09/11/17 06:00 PT 14.7 Sec. (12.2-14.9) 09/12/17 10:29 INR 1.09 (0.87-1.13) 09/12/17 10:29 APTT 26.2 Sec. (24.2-36.6) 09/12/17 10:29 Fibrinogen 611 mg/dl (211-480) H 09/04/17 17:23 D-Dimer 976.43 ng/mlDDU (0-234) H 09/01/17 23:27 POC ABG pH 7.457 (7.35-7.45) H 09/13/17 03:56 POC ABG pCO2 49.9 (35-45) H 09/13/17 03:56 POC ABG pO2 83 (80-105) 09/13/17 03:56 POC ABG HCO3 35.2 09/13/17 03:56 POC ABG Total CO2 37 09/13/17 03:56 POC ABG O2 Sat 96 09/13/17 03:56 POC ABG Base Excess 11 09/13/17 03:56 FiO2 30 % 09/13/17 03:56 Sodium 138 mmol/L (137-145) 09/13/17 09:24 Potassium 4.5 mmol/L (3.6-5.0) 09/13/17 09:24 Chloride 101.5 mmol/L (98-107) 09/13/17 09:24 Carbon Dioxide 31 mmol/L (22-30) H 09/13/17 09:24 Anion Gap 10 mmol/L 09/13/17 09:24 BUN 33 mg/dL (9-20) H 09/13/17 09:24 Creatinine 0.6 mg/dL (0.8-1.5) L 09/13/17 09:24 Estimated GFR > 60 ml/min 09/13/17 09:24 BUN/Creatinine Ratio 55 % 09/13/17 09:24 Glucose 177 mg/dL (75-100) H 09/13/17 09:24 POC Glucose 190 (70-105) H 09/13/17 05:47 Lactic Acid 2.90 mmol/L (0.7-2.0) H* 09/06/17 08:03 Calcium 9.2 mg/dL (8.4-10.2) D 09/13/17 09:24 Phosphorus 2.50 mg/dL (2.5-4.5) 09/13/17 09:24 Magnesium 2.00 mg/dL (1.7-2.3) 09/13/17 09:24 Total Bilirubin 0.30 mg/dL (0.1-1.2) 09/07/17 04:13 AST 150 units/L (5-40) H 09/07/17 04:13 ALT 381 units/L (7-56) H 09/07/17 04:13 Alkaline Phosphatase 103 units/L (35-129) 09/07/17 04:13 Lactate Dehydrogenase 571 units/L (91-180) H 09/05/17 10:55 Troponin T < 0.010 ng/mL (0.00-0.029) 09/01/17 23:27 C-Reactive Protein 1.60 mg/dL (0.00-1.30) H 09/12/17 21:44 NT-Pro-B Natriuret Pep 315.2 pg/mL (0-900) 09/01/17 23:27 Total Protein 7.0 g/dL (6.3-8.2) 09/07/17 04:13 Albumin 1.3 g/dL (3.9-5) L 09/07/17 04:13 Albumin/Globulin Ratio 0.2 % 09/07/17 04:13 Lipase 12 units/L (13-60) L 09/04/17 17:23 Vancomycin Trough 15.3 ug/mL (5.0-20.0) 09/04/17 17:23 Lymph Enumerat CD4/CD8 0.10 (0.86-5.00) L 09/05/17 14:30 % CD3 Cells 75 % (57-85) 09/05/17 14:30 Absolute CD3 Count 1105 cells/uL (840-3060) 09/05/17 14:30 % CD4 Cells 7 % (30-61) L 09/05/17 14:30 Absolute CD4 Count 101 cells/uL (490-1740) L 09/05/17 14:30 % CD8 Cells 66 % (12-42) H 09/05/17 14:30 Absolute CD8 Count 986 cells/uL (180-1170) 09/05/17 14:30 % CD19 Cells 4 % (6-29) L 09/05/17 14:30 Absolute CD19 Count 60 cells/uL (110-660) L 09/05/17 14:30 RPR Nonreactive (Nonreactive) 09/07/17 04:13 Hepatitis A IgM Ab Non-reactive (NonReactive) 09/05/17 10:55 Hep Bs Antigen Reactive (Negative) 09/05/17 10:55 Hep Bs Antibody, Quant <5 mIU/mL (>=10) L 09/07/17 04:13 Hep B Core Total Ab Reactive (Nonreactive) H 09/07/17 04:13 Hep B Core IgM Ab Non-reactive (NonReactive) 09/05/17 10:55 Hepatitis Be Antibody Nonreactive 09/07/17 04:13 Hepatitis Be Antigen Reactive H 09/07/17 04:13 Hepatitis C Antibody Non-reactive (NonReactive) 09/05/17 10:55 HIV-1 RNA PCR copies/ml 1750 Copies/mL H 09/05/17 14:30 HIV-1 RNA (PCR) log 3.24 Log cps/mL H 09/05/17 14:30 HIV-1 Genotyping see below 09/05/17 14:30 HIV 1&2 Antibody Rapid Reactive (Non React) 09/02/17 19:34 HIV P24 Antigen Non react (Non React) 09/02/17 19:34 Urine Legionella Ag Not detected (Not Detected) 09/02/17 13:55 TB (QFT) Gold In Tube Negative (Negative) 09/05/17 14:30 TB Test (QFT) Nil 0.04 IU/mL 09/05/17 14:30 TB Test Mitogen - Nil 2.28 IU/mL 09/05/17 14:30 TB Test Antigen - Nil 0.00 IU/mL 09/05/17 14:30 Miscellaneous Test Flexitest 1 09/06/17 11:30
[2017-09-13] MEDS: fentaNYL DRIP Premix 2,000 MCG/100 ML BAG IV SCH (18:37)
--- NOTE | 2017-09-13 20:17 | Progress Note ---
Assessment and Plan Assessment: 1) Severe Sepsis with septic shock: pressors off, unclear etiology ?pneumonia with effusion. Initial Etiology most likely E coli septicemia and pneumonia. -CRP 22.30. -Lactic acid better as of 09/06. -Off levophed. -Afebrile. -Leukocytosis down - On solumedrol. 2) E. coli septicemia: unknown source ? Pneumonia ? UTI (UCx negative) ? GI -Blood cultures 09/01 positive 4 of 4 bottles. E coli sens to cefepime/zosyn -Repeat Blood cultures 09/04 negative. -TTE 09/02 no vegetations. 3) Bilateral pneumonia: recently treated at [facility]. -Tracheal asp with normal fiordaliza. - CT chest 09/02 with extensive bilateral pulmonary opacities due to edema vs PNA. Also component of atelectasis. Bilateral pleural effusions. - Legionella and Strep pneumo ag in urine negative - On bactrim and steroids since 09/05. -PJP DFA negative -repeat CT patchy infiltrate in RUL and large right effusion/mod left effusion 4) Acute respiratory failure. Intubated. From pneumonia +/- CHF 5) HIV/AIDS, poorly compliant with HAART for past > 1 year per [facility]; last CD4 per [facility] was 133. [id number] on 08/26/17 -RPR neg -fungal blood cx neg 6) Abnormal CT A/P with numerous liver lesions suspicious for metastatic liver disease, moderate ascites, possible partial vein thrombosis. 7) Encephalopathy. 8) Transaminitis. Improved. ?hep B. ?cirrhosis -Hep B Surface ag positive, HBVe antigen positive, HBV core total ab positive -Hep C negative -CT + Ascitis -US + ? portal venous thrombosis, multiple liver lesions 9) Acute Thrombocytopenia. Improved. 10) Low EF Plan: -GI med consult for elevated LFTs and abdnomal liver US ? HBV with cirrhosis ? malignancy -f/u repeat blood cx -continue cefepime and vancomycin -consider thoracentesis -continue bactrim DS 1 tab qday for prophylaxis -continue azithromycin 1200 mg qweek for prophylaxis -Will f/u genotype, HLA [id number], quantiferon, hep B viral load. -Will f/u AFB blood cultures Eduarda Rolon MD Infectious Diseases Specialist [facility] ([facility] M [phone] O [phone] Subjective Date of service: 09/13/17 Principal diagnosis: Septic shock, acute hypoxemic respiratory failure, [place] Interval history: Remains intubated anxious on CPAP. Afebrile. back on pressors-levophed is off Microbiology: Blood cultures: 09/01 E coli x 4 bottles 09/04 Neg 09/06 ngtd Fungal blood culture: 09/06 pending Urine cultures: 09/02 Neg Respiratory cultures: TA 09/02 normal fiordaliza Crypto ag in serum negative Current Antimicrobials: Cefepime 09/12 Vanco 09/12 Bactrim 09/05- Azithromycin 09/06- Solumedrol 09/05- Previous Antimicrobials: Zosyn 09/02 Azithro 09/02 Meropenem 09/02- Fluconazole 09/03- Objective - Constitutional Vitals: Vital Signs Temp Pulse Resp BP Pulse Ox 98.3 F 83 15 81/42 99 09/13/17 16:00 09/13/17 19:40 09/13/17 18:15 09/13/17 19:40 09/13/17 19:40 Temperature -Last 24 Hours Temperature 98.3 F Temperature 98.3 F Temperature 98.2 F Temperature 98.5 F Temperature 98.3 F - Labs CBC & Chem 7: 09/11/17 06:00 09/13/17 09:24 Labs: Abnormal lab results 09/12/17 09/13/17 09/13/17 Range/Units 21:44 00:16 03:56 POC ABG pH 7.457 H (7.35-7.45) POC ABG pCO2 49.9 H (35-45) Carbon Dioxide (22-30) mmol/L BUN (9-20) mg/dL Creatinine (0.8-1.5) mg/dL Glucose (75-100) mg/dL POC Glucose 164 H (70-105) C-Reactive Protein 1.60 H (0.00-1.30) mg/dL 09/13/17 09/13/17 Range/Units 05:47 09:24 POC ABG pH (7.35-7.45) POC ABG pCO2 (35-45) Carbon Dioxide 31 H (22-30) mmol/L BUN 33 H (9-20) mg/dL Creatinine 0.6 L (0.8-1.5) mg/dL Glucose 177 H (75-100) mg/dL POC Glucose 190 H (70-105) C-Reactive Protein (0.00-1.30) mg/dL
[2017-09-13] MEDS: LEVOPHED 8 MG in NACL 0.9% 250ML 242 ML IV SCH (20:19)
[2017-09-14] MEDS: DUONEB *Not for PRN Use IH SCH ×5 (00:30→20:59)
[2017-09-14] MEDS: NOVOLOG SUB-Q SCH ×5 (00:58→23:36)
[2017-09-14] MEDS: VANCOMYCIN 1,500 MG in NACL 0.9% 500 ML 500 ML IV SCH ×3 (00:58→15:01)
[2017-09-14] MEDS: MAXIPIME 2 GM in NACL 0.9% 20 ML IV SCH ×3 (06:11→19:41)
[2017-09-14] MEDS: fentaNYL DRIP Premix 2,000 MCG/100 ML BAG IV SCH (08:25)
[2017-09-14] MEDS ORDERED: SUBLIMAZE IV PRN (10:45)
[2017-09-14] MEDS: PEPCID PO SCH ×2 (11:10→21:53)
[2017-09-14] MEDS: LASIX IV SCH (11:16)
[2017-09-14] MEDS: LOVENOX SUB-Q SCH (11:16)
[2017-09-14] MEDS: BACTRIM DS PO SCH (11:18)
--- NOTE | 2017-09-14 11:49 | Progress Note ---
Assessment and Plan 52 y/o male, vet, admitted with acute respiratory failure thought secondary to pneumonia with lactic acidosis, found to have newly diagnosed HIV being treated empirically for PJP and with systolic heart failure 1. Today is day 12 of intubation. Tolerating PSV so far. Will discuss with son the possiblity of trach, but most likely will need this for vent weaning. Tomorrow, will attempt extubation. Will give lasix prior to extubation and have bipap available if needed. If patient fails, trach will definitely be next option. 2. Abx therapy per ID 3. Continue daily lasix therapy for volume overload as long as BP and renal function will allow. Will order labs as none done this am. 4. Strict I/O 5. Continue feeds as tolerated 6. Overall prognosis is guarded to poor. CCT 31 minutes. Subjective Date of service: 09/14/17 Principal diagnosis: Septic shock, acute hypoxemic respiratory failure, [place] Interval history: No acute events overnight. Sister at bedside. Awake. Follows the occasion commands. ABG stable on 30%. Objective Vital Signs - 12hr 09/14/17 09/14/17 09/14/17 00:00 00:15 00:30 Temperature 98.6 F Pulse Rate 84 106 H 99 H Pulse Rate [ Anterior Bilateral Throughout] Respiratory 30 H 19 Rate Respiratory Rate [Anterior Bilateral Throughout] Blood Pressure 135/84 120/84 119/81 O2 Sat by Pulse 100 98 98 Oximetry 09/14/17 09/14/17 09/14/17 00:45 01:00 01:15 Temperature Pulse Rate 105 H 106 H 114 H Pulse Rate [ Anterior Bilateral Throughout] Respiratory Rate Respiratory Rate [Anterior Bilateral Throughout] Blood Pressure 134/70 130/85 130/85 O2 Sat by Pulse 99 99 98 Oximetry 09/14/17 09/14/17 09/14/17 01:30 01:39 01:45 Temperature Pulse Rate 84 92 H 84 Pulse Rate [ Anterior Bilateral Throughout] Respiratory Rate Respiratory Rate [Anterior Bilateral Throughout] Blood Pressure 135/84 135/84 144/81 O2 Sat by Pulse 99 99 99 Oximetry 09/14/17 09/14/17 09/14/17 02:00 02:15 02:30 Temperature Pulse Rate 85 89 84 Pulse Rate [ 81 Anterior Bilateral Throughout] Respiratory Rate Respiratory 16 Rate [Anterior Bilateral Throughout] Blood Pressure 116/80 145/93 104/67 O2 Sat by Pulse 98 99 98 Oximetry 09/14/17 09/14/17 09/14/17 02:45 03:00 03:15 Temperature Pulse Rate 86 97 H 109 H Pulse Rate [ Anterior Bilateral Throughout] Respiratory Rate Respiratory Rate [Anterior Bilateral Throughout] Blood Pressure 135/81 135/81 137/84 O2 Sat by Pulse 99 99 98 Oximetry 09/14/17 09/14/17 09/14/17 03:30 03:45 04:00 Temperature 98.8 F Pulse Rate 101 H 106 H 84 Pulse Rate [ Anterior Bilateral Throughout] Respiratory Rate Respiratory Rate [Anterior Bilateral Throughout] Blood Pressure 148/94 119/86 111/70 O2 Sat by Pulse 99 98 98 Oximetry 09/14/17 09/14/17 09/14/17 04:01 04:15 04:30 Temperature Pulse Rate 100 H 99 H 103 H Pulse Rate [ Anterior Bilateral Throughout] Respiratory Rate Respiratory Rate [Anterior Bilateral Throughout] Blood Pressure 129/93 144/99 130/109 O2 Sat by Pulse 99 98 99 Oximetry 09/14/17 09/14/17 09/14/17 04:45 05:00 05:15 Temperature Pulse Rate 82 93 H 80 Pulse Rate [ Anterior Bilateral Throughout] Respiratory Rate Respiratory Rate [Anterior Bilateral Throughout] Blood Pressure 111/68 140/104 111/70 O2 Sat by Pulse 98 98 98 Oximetry 09/14/17 09/14/17 09/14/17 05:30 05:45 06:00 Temperature Pulse Rate 105 H 71 78 Pulse Rate [ Anterior Bilateral Throughout] Respiratory 16 Rate Respiratory Rate [Anterior Bilateral Throughout] Blood Pressure 159/110 124/74 110/70 O2 Sat by Pulse 99 98 98 Oximetry 09/14/17 09/14/17 09/14/17 06:16 08:00 08:02 Temperature 98.0 F Pulse Rate Pulse Rate [ 86 103 H Anterior Bilateral Throughout] Respiratory Rate Respiratory 18 16 Rate [Anterior Bilateral Throughout] Blood Pressure O2 Sat by Pulse Oximetry 09/14/17 09/14/17 09/14/17 08:06 08:12 11:25 Temperature Pulse Rate 93 H 91 H Pulse Rate [ 77 Anterior Bilateral Throughout] Respiratory 21 Rate Respiratory 20 Rate [Anterior Bilateral Throughout] Blood Pressure 138/77 129/73 O2 Sat by Pulse 100 100 Oximetry Constitutional: other (critically ill on vent, sedated) Eyes: non-icteric ENT: other (orally intubated and sedated) Neck: supple Effort: normal Ascultation: Bilateral: diminished breath sounds, rales, other (coarse BS bilaterally) Percussion: Bilateral: not dull Cardiovascular: regular rate and rhythm (sinus tach) Gastrointestinal: hypoactive bowel sounds, soft, non-tender, non-distended Extremities: no cyanosis, no edema, pink and warm Neurologic: normal mental status, non-focal exam, pupils equal and round, CN II- XII normal Psychiatric: other (unable to assess) CBC and BMP: 09/11/17 06:00 09/13/17 09:24 ABG, PT/INR, D-dimer: ABG POC ABG pH 7.415 (7.35-7.45) 09/14/17 06:14 POC ABG pCO2 52.0 (35-45) H 09/14/17 06:14 POC ABG pO2 85 (80-105) 09/14/17 06:14 POC ABG HCO3 33.3 09/14/17 06:14 POC ABG Total CO2 35 09/14/17 06:14 POC ABG O2 Sat 96 09/14/17 06:14 PT/INR, D-dimer PT 14.7 Sec. (12.2-14.9) 09/12/17 10:29 INR 1.09 (0.87-1.13) 09/12/17 10:29 D-Dimer 976.43 ng/mlDDU (0-234) H 09/01/17 23:27 Abnormal lab findings: Abnormal Labs 09/01/17 09/01/17 09/01/17 19:00 19:00 23:27 WBC RBC Hgb 10.9 L Hct 32.3 L MCV 83 L MCH RDW 15.6 H Plt Count [place] % (Auto) Seg Neutrophils % Seg Neuts % (Manual) Lymphocytes % (Manual) Nucleated RBC % Seg Neutrophils # Man Lymphocytes # (Manual) PT INR Fibrinogen D-Dimer 976.43 H POC ABG pH POC ABG pCO2 POC ABG pO2 Sodium 133 L Potassium Chloride 96.4 L Carbon Dioxide BUN Creatinine Glucose 113 H POC Glucose Lactic Acid Calcium Phosphorus Magnesium AST ALT Lactate Dehydrogenase C-Reactive Protein Total Protein Albumin Lipase Lymph Enumerat CD4/CD8 % CD4 Cells Absolute CD4 Count % CD8 Cells % CD19 Cells Absolute CD19 Count Hep Bs Antibody, Quant Hep B Core Total Ab Hepatitis Be Antigen HIV-1 RNA PCR copies/ml HIV-1 RNA (PCR) log 09/01/17 09/02/17 09/02/17 23:27 01:25 07:36 WBC 2.2 L RBC 3.41 L Hgb 9.6 L Hct 28.9 L MCV MCH RDW 16.0 H Plt Count [place] % (Auto) 12.6 H Seg Neutrophils % 70.4 H Seg Neuts % (Manual) Lymphocytes % (Manual) Nucleated RBC % Seg Neutrophils # Man 1.1 L Lymphocytes # (Manual) 0.6 L PT INR Fibrinogen D-Dimer POC ABG pH POC ABG pCO2 POC ABG pO2 Sodium Potassium Chloride Carbon Dioxide BUN Creatinine Glucose POC Glucose Lactic Acid 3.30 H* 4.10 H* Calcium Phosphorus Magnesium AST ALT Lactate Dehydrogenase C-Reactive Protein Total Protein Albumin Lipase Lymph Enumerat CD4/CD8 % CD4 Cells Absolute CD4 Count % CD8 Cells % CD19 Cells Absolute CD19 Count Hep Bs Antibody, Quant Hep B Core Total Ab Hepatitis Be Antigen HIV-1 RNA PCR copies/ml HIV-1 RNA (PCR) log 09/02/17 09/02/17 09/02/17 07:36 07:36 07:36 WBC RBC Hgb Hct MCV MCH RDW Plt Count [place] % (Auto) Seg Neutrophils % Seg Neuts % (Manual) Lymphocytes % (Manual) Nucleated RBC % Seg Neutrophils # Man Lymphocytes # (Manual) PT 18.6 H INR 1.46 H Fibrinogen D-Dimer POC ABG pH POC ABG pCO2 POC ABG pO2 Sodium 136 L Potassium Chloride Carbon Dioxide BUN Creatinine Glucose POC Glucose Lactic Acid 3.80 H* Calcium Phosphorus Magnesium 1.20 L AST ALT Lactate Dehydrogenase C-Reactive Protein Total Protein 9.1 H Albumin 2.0 L Lipase Lymph Enumerat CD4/CD8 % CD4 Cells Absolute CD4 Count % CD8 Cells % CD19 Cells Absolute CD19 Count Hep Bs Antibody, Quant Hep B Core Total Ab Hepatitis Be Antigen HIV-1 RNA PCR copies/ml HIV-1 RNA (PCR) log 09/02/17 09/02/17 09/02/17 08:49 09:40 11:33 WBC RBC Hgb Hct MCV MCH RDW Plt Count [place] % (Auto) Seg Neutrophils % Seg Neuts % (Manual) Lymphocytes % (Manual) Nucleated RBC % Seg Neutrophils # Man Lymphocytes # (Manual) PT INR Fibrinogen D-Dimer POC ABG pH 7.313 L POC ABG pCO2 POC ABG pO2 116 H Sodium Potassium Chloride Carbon Dioxide BUN Creatinine Glucose POC Glucose Lactic Acid 3.60 H* 5.20 H* Calcium Phosphorus Magnesium AST ALT Lactate Dehydrogenase C-Reactive Protein Total Protein Albumin Lipase Lymph Enumerat CD4/CD8 % CD4 Cells Absolute CD4 Count % CD8 Cells % CD19 Cells Absolute CD19 Count Hep Bs Antibody, Quant Hep B Core Total Ab Hepatitis Be Antigen HIV-1 RNA PCR copies/ml HIV-1 RNA (PCR) log 09/02/17 09/02/17 09/02/17 19:34 23:37 23:40 WBC RBC Hgb Hct MCV MCH RDW Plt Count [place] % (Auto) Seg Neutrophils % Seg Neuts % (Manual) Lymphocytes % (Manual) Nucleated RBC % Seg Neutrophils # Man Lymphocytes # (Manual) PT INR Fibrinogen D-Dimer POC ABG pH POC ABG pCO2 POC ABG pO2 Sodium Potassium Chloride Carbon Dioxide BUN Creatinine Glucose 59 L POC Glucose 47 L Lactic Acid Calcium Phosphorus Magnesium AST ALT Lactate Dehydrogenase C-Reactive Protein 22.30 H Total Protein Albumin Lipase Lymph Enumerat CD4/CD8 % CD4 Cells Absolute CD4 Count % CD8 Cells % CD19 Cells Absolute CD19 Count Hep Bs Antibody, Quant Hep B Core Total Ab Hepatitis Be Antigen HIV-1 RNA PCR copies/ml HIV-1 RNA (PCR) log 09/03/17 09/03/17 09/03/17 00:06 05:15 05:15 WBC RBC 3.59 L Hgb 10.1 L Hct 31.5 L MCV MCH RDW 18.0 H Plt Count [place] % (Auto) Seg Neutrophils % Seg Neuts % (Manual) Lymphocytes % (Manual) 1.0 L Nucleated RBC % 1.0 H Seg Neutrophils # Man Lymphocytes # (Manual) 0.1 L PT INR Fibrinogen D-Dimer POC ABG pH POC ABG pCO2 POC ABG pO2 Sodium Potassium Chloride Carbon Dioxide BUN Creatinine Glucose POC Glucose 144 H Lactic Acid 9.10 H* Calcium Phosphorus Magnesium AST ALT Lactate Dehydrogenase C-Reactive Protein Total Protein Albumin Lipase Lymph Enumerat CD4/CD8 % CD4 Cells Absolute CD4 Count % CD8 Cells % CD19 Cells Absolute CD19 Count Hep Bs Antibody, Quant Hep B Core Total Ab Hepatitis Be Antigen HIV-1 RNA PCR copies/ml HIV-1 RNA (PCR) log 09/03/17 09/03/17 09/03/17 05:15 05:55 07:40 WBC RBC Hgb Hct MCV MCH RDW Plt Count [place] % (Auto) Seg Neutrophils % Seg Neuts % (Manual) Lymphocytes % (Manual) Nucleated RBC % Seg Neutrophils # Man Lymphocytes # (Manual) PT INR Fibrinogen D-Dimer POC ABG pH 6.999 L POC ABG pCO2 POC ABG pO2 64 L Sodium Potassium 5.6 H D Chloride 108.4 H Carbon Dioxide 11 L D BUN 30 H Creatinine Glucose 115 H POC Glucose Lactic Acid 9.20 H* Calcium 7.3 L D Phosphorus 6.40 H Magnesium AST 88 H ALT Lactate Dehydrogenase C-Reactive Protein Total Protein Albumin 1.7 L Lipase Lymph Enumerat CD4/CD8 % CD4 Cells Absolute CD4 Count % CD8 Cells % CD19 Cells Absolute CD19 Count Hep Bs Antibody, Quant Hep B Core Total Ab Hepatitis Be Antigen HIV-1 RNA PCR copies/ml HIV-1 RNA (PCR) log 09/03/17 09/03/17 09/03/17 09:55 12:03 13:17 WBC RBC Hgb Hct MCV MCH RDW Plt Count [place] % (Auto) Seg Neutrophils % Seg Neuts % (Manual) Lymphocytes % (Manual) Nucleated RBC % Seg Neutrophils # Man Lymphocytes # (Manual) PT INR Fibrinogen D-Dimer POC ABG pH POC ABG pCO2 POC ABG pO2 Sodium Potassium Chloride Carbon Dioxide BUN Creatinine Glucose POC Glucose 155 H Lactic Acid 9.50 H* 9.90 H* Calcium Phosphorus Magnesium AST ALT Lactate Dehydrogenase C-Reactive Protein Total Protein Albumin Lipase Lymph Enumerat CD4/CD8 % CD4 Cells Absolute CD4 Count % CD8 Cells % CD19 Cells Absolute CD19 Count Hep Bs Antibody, Quant Hep B Core Total Ab Hepatitis Be Antigen HIV-1 RNA PCR copies/ml HIV-1 RNA (PCR) log 09/03/17 09/03/17 09/03/17 15:55 17:13 18:02 WBC RBC Hgb Hct MCV MCH RDW Plt Count [place] % (Auto) Seg Neutrophils % Seg Neuts % (Manual) Lymphocytes % (Manual) Nucleated RBC % Seg Neutrophils # Man Lymphocytes # (Manual) PT INR Fibrinogen D-Dimer POC ABG pH POC ABG pCO2 POC ABG pO2 Sodium Potassium Chloride Carbon Dioxide BUN Creatinine Glucose POC Glucose 171 H Lactic Acid 9.60 H* 9.00 H* Calcium Phosphorus Magnesium AST ALT Lactate Dehydrogenase C-Reactive Protein Total Protein Albumin Lipase Lymph Enumerat CD4/CD8 % CD4 Cells Absolute CD4 Count % CD8 Cells % CD19 Cells Absolute CD19 Count Hep Bs Antibody, Quant Hep B Core Total Ab Hepatitis Be Antigen HIV-1 RNA PCR copies/ml HIV-1 RNA (PCR) log 09/03/17 09/03/17 09/04/17 20:29 23:02 04:00 WBC RBC Hgb Hct MCV MCH RDW Plt Count [place] % (Auto) Seg Neutrophils % Seg Neuts % (Manual) Lymphocytes % (Manual) Nucleated RBC % Seg Neutrophils # Man Lymphocytes # (Manual) PT INR Fibrinogen D-Dimer POC ABG pH POC ABG pCO2 POC ABG pO2 Sodium Potassium Chloride Carbon Dioxide BUN Creatinine Glucose POC Glucose 156 H Lactic Acid 9.00 H* 3.00 H* Calcium Phosphorus Magnesium AST ALT Lactate Dehydrogenase C-Reactive Protein Total Protein Albumin Lipase Lymph Enumerat CD4/CD8 % CD4 Cells Absolute CD4 Count % CD8 Cells % CD19 Cells Absolute CD19 Count Hep Bs Antibody, Quant Hep B Core Total Ab Hepatitis Be Antigen HIV-1 RNA PCR copies/ml HIV-1 RNA (PCR) log 09/04/17 09/04/17 09/04/17 04:00 04:00 09:00 WBC RBC 3.44 L Hgb 9.6 L Hct 29.0 L MCV MCH RDW 17.4 H Plt Count 124 L [place] % (Auto) Seg Neutrophils % Seg Neuts % (Manual) 91.0 H Lymphocytes % (Manual) 3.0 L Nucleated RBC % 2.0 H Seg Neutrophils # Man 9.9 H Lymphocytes # (Manual) 0.3 L PT 28.4 H INR 2.47 H Fibrinogen D-Dimer POC ABG pH POC ABG pCO2 POC ABG pO2 Sodium Potassium Chloride 110.1 H Carbon Dioxide BUN 29 H Creatinine Glucose 192 H POC Glucose Lactic Acid Calcium 6.8 L Phosphorus Magnesium AST 361 H ALT 315 H Lactate Dehydrogenase C-Reactive Protein Total Protein Albumin 1.6 L Lipase Lymph Enumerat CD4/CD8 % CD4 Cells Absolute CD4 Count % CD8 Cells % CD19 Cells Absolute CD19 Count Hep Bs Antibody, Quant Hep B Core Total Ab Hepatitis Be Antigen HIV-1 RNA PCR copies/ml HIV-1 RNA (PCR) log 09/04/17 09/04/17 09/04/17 09:00 12:00 17:23 WBC RBC Hgb Hct MCV MCH RDW Plt Count [place] % (Auto) Seg Neutrophils % Seg Neuts % (Manual) Lymphocytes % (Manual) Nucleated RBC % Seg Neutrophils # Man Lymphocytes # (Manual) PT INR Fibrinogen 611 H D-Dimer POC ABG pH POC ABG pCO2 POC ABG pO2 Sodium Potassium Chloride Carbon Dioxide BUN Creatinine Glucose POC Glucose Lactic Acid 2.10 H* 3.40 H* Calcium Phosphorus Magnesium AST ALT Lactate Dehydrogenase C-Reactive Protein Total Protein Albumin Lipase Lymph Enumerat CD4/CD8 % CD4 Cells Absolute CD4 Count % CD8 Cells % CD19 Cells Absolute CD19 Count Hep Bs Antibody, Quant Hep B Core Total Ab Hepatitis Be Antigen HIV-1 RNA PCR copies/ml HIV-1 RNA (PCR) log 09/04/17 09/04/17 09/04/17 17:23 17:47 22:30 WBC RBC Hgb Hct MCV MCH RDW Plt Count [place] % (Auto) Seg Neutrophils % Seg Neuts % (Manual) Lymphocytes % (Manual) Nucleated RBC % Seg Neutrophils # Man Lymphocytes # (Manual) PT INR Fibrinogen D-Dimer POC ABG pH POC ABG pCO2 POC ABG pO2 Sodium Potassium Chloride Carbon Dioxide BUN Creatinine Glucose POC Glucose 107 H Lactic Acid 4.70 H* Calcium Phosphorus Magnesium AST ALT Lactate Dehydrogenase C-Reactive Protein Total Protein Albumin Lipase 12 L Lymph Enumerat CD4/CD8 % CD4 Cells Absolute CD4 Count % CD8 Cells % CD19 Cells Absolute CD19 Count Hep Bs Antibody, Quant Hep B Core Total Ab Hepatitis Be Antigen HIV-1 RNA PCR copies/ml HIV-1 RNA (PCR) log 09/04/17 09/05/17 09/05/17 23:08 05:31 06:00 WBC RBC Hgb Hct MCV MCH RDW Plt Count [place] % (Auto) Seg Neutrophils % Seg Neuts % (Manual) Lymphocytes % (Manual) Nucleated RBC % Seg Neutrophils # Man Lymphocytes # (Manual) PT INR Fibrinogen D-Dimer POC ABG pH 7.226 L POC ABG pCO2 65.4 H POC ABG pO2 61 L Sodium Potassium Chloride 112.7 H Carbon Dioxide BUN 31 H Creatinine Glucose 132 H POC Glucose 109 H Lactic Acid Calcium 7.7 L Phosphorus Magnesium AST 834 H ALT 898 H Lactate Dehydrogenase C-Reactive Protein Total Protein Albumin 1.4 L Lipase Lymph Enumerat CD4/CD8 % CD4 Cells Absolute CD4 Count % CD8 Cells % CD19 Cells Absolute CD19 Count Hep Bs Antibody, Quant Hep B Core Total Ab Hepatitis Be Antigen HIV-1 RNA PCR copies/ml HIV-1 RNA (PCR) log 09/05/17 09/05/17 09/05/17 06:00 06:35 10:26 WBC RBC Hgb Hct MCV MCH RDW Plt Count [place] % (Auto) Seg Neutrophils % Seg Neuts % (Manual) Lymphocytes % (Manual) Nucleated RBC % Seg Neutrophils # Man Lymphocytes # (Manual) PT INR Fibrinogen D-Dimer POC ABG pH 7.311 L POC ABG pCO2 58.5 H POC ABG pO2 213 H Sodium Potassium Chloride Carbon Dioxide BUN Creatinine Glucose POC Glucose 110 H Lactic Acid 4.50 H* Calcium Phosphorus Magnesium AST ALT Lactate Dehydrogenase C-Reactive Protein Total Protein Albumin Lipase Lymph Enumerat CD4/CD8 % CD4 Cells Absolute CD4 Count % CD8 Cells % CD19 Cells Absolute CD19 Count Hep Bs Antibody, Quant Hep B Core Total Ab Hepatitis Be Antigen HIV-1 RNA PCR copies/ml HIV-1 RNA (PCR) log 09/05/17 09/05/17 09/05/17 10:55 10:55 10:55 WBC 11.1 H RBC 3.38 L Hgb 9.3 L Hct 28.7 L MCV MCH RDW 16.7 H Plt Count 118 L [place] % (Auto) Seg Neutrophils % Seg Neuts % (Manual) 92.0 H Lymphocytes % (Manual) 4.0 L Nucleated RBC % 2.0 H Seg Neutrophils # Man 10.2 H Lymphocytes # (Manual) 0.4 L PT INR Fibrinogen D-Dimer POC ABG pH POC ABG pCO2 POC ABG pO2 Sodium Potassium Chloride Carbon Dioxide BUN Creatinine Glucose POC Glucose Lactic Acid 3.60 H* Calcium Phosphorus Magnesium AST ALT Lactate Dehydrogenase 571 H C-Reactive Protein Total Protein Albumin Lipase Lymph Enumerat CD4/CD8 % CD4 Cells Absolute CD4 Count % CD8 Cells % CD19 Cells Absolute CD19 Count Hep Bs Antibody, Quant Hep B Core Total Ab Hepatitis Be Antigen HIV-1 RNA PCR copies/ml HIV-1 RNA (PCR) log 09/05/17 09/05/17 09/05/17 12:05 14:30 14:30 WBC RBC Hgb Hct MCV MCH RDW Plt Count [place] % (Auto) Seg Neutrophils % Seg Neuts % (Manual) Lymphocytes % (Manual) Nucleated RBC % Seg Neutrophils # Man Lymphocytes # (Manual) PT INR Fibrinogen D-Dimer POC ABG pH POC ABG pCO2 POC ABG pO2 Sodium Potassium Chloride Carbon Dioxide BUN Creatinine Glucose POC Glucose 148 H Lactic Acid Calcium Phosphorus Magnesium AST ALT Lactate Dehydrogenase C-Reactive Protein Total Protein Albumin Lipase Lymph Enumerat CD4/CD8 0.10 L % CD4 Cells 7 L Absolute CD4 Count 101 L % CD8 Cells 66 H % CD19 Cells 4 L Absolute CD19 Count 60 L Hep Bs Antibody, Quant Hep B Core Total Ab Hepatitis Be Antigen HIV-1 RNA PCR copies/ml 1750 H HIV-1 RNA (PCR) log 3.24 H 09/05/17 09/05/17 09/05/17 16:30 17:42 19:55 WBC RBC Hgb Hct MCV MCH RDW Plt Count [place] % (Auto) Seg Neutrophils % Seg Neuts % (Manual) Lymphocytes % (Manual) Nucleated RBC % Seg Neutrophils # Man Lymphocytes # (Manual) PT INR Fibrinogen D-Dimer POC ABG pH POC ABG pCO2 POC ABG pO2 Sodium Potassium Chloride Carbon Dioxide BUN Creatinine Glucose POC Glucose 183 H Lactic Acid 3.50 H* 3.60 H* Calcium Phosphorus Magnesium AST ALT Lactate Dehydrogenase C-Reactive Protein Total Protein Albumin Lipase Lymph Enumerat CD4/CD8 % CD4 Cells Absolute CD4 Count % CD8 Cells % CD19 Cells Absolute CD19 Count Hep Bs Antibody, Quant Hep B Core Total Ab Hepatitis Be Antigen HIV-1 RNA PCR copies/ml HIV-1 RNA (PCR) log 09/05/17 09/06/17 09/06/17 23:29 03:58 05:33 WBC RBC Hgb Hct MCV MCH RDW Plt Count [place] % (Auto) Seg Neutrophils % Seg Neuts % (Manual) Lymphocytes % (Manual) Nucleated RBC % Seg Neutrophils # Man Lymphocytes # (Manual) PT INR Fibrinogen D-Dimer POC ABG pH POC ABG pCO2 62.5 H POC ABG pO2 141 H Sodium Potassium Chloride Carbon Dioxide BUN Creatinine Glucose POC Glucose 203 H 207 H Lactic Acid Calcium Phosphorus Magnesium AST ALT Lactate Dehydrogenase C-Reactive Protein Total Protein Albumin Lipase Lymph Enumerat CD4/CD8 % CD4 Cells Absolute CD4 Count % CD8 Cells % CD19 Cells Absolute CD19 Count Hep Bs Antibody, Quant Hep B Core Total Ab Hepatitis Be Antigen HIV-1 RNA PCR copies/ml HIV-1 RNA (PCR) log 09/06/17 09/06/17 09/06/17 06:15 06:15 06:15 WBC RBC 3.26 L Hgb 9.0 L Hct 27.5 L MCV MCH RDW 16.7 H Plt Count 104 L [place] % (Auto) Seg Neutrophils % Seg Neuts % (Manual) 97.0 H Lymphocytes % (Manual) 2.0 L Nucleated RBC % Seg Neutrophils # Man 8.1 H Lymphocytes # (Manual) 0.2 L PT INR Fibrinogen D-Dimer POC ABG pH POC ABG pCO2 POC ABG pO2 Sodium 150 H Potassium Chloride 110.9 H Carbon Dioxide 31 H BUN 34 H Creatinine Glucose 207 H POC Glucose Lactic Acid 2.90 H* Calcium 8.2 L Phosphorus Magnesium AST 346 H ALT 634 H Lactate Dehydrogenase C-Reactive Protein Total Protein Albumin 1.5 L Lipase Lymph Enumerat CD4/CD8 % CD4 Cells Absolute CD4 Count % CD8 Cells % CD19 Cells Absolute CD19 Count Hep Bs Antibody, Quant Hep B Core Total Ab Hepatitis Be Antigen HIV-1 RNA PCR copies/ml HIV-1 RNA (PCR) log 09/06/17 09/06/17 09/06/17 08:03 11:32 18:04 WBC RBC Hgb Hct MCV MCH RDW Plt Count [place] % (Auto) Seg Neutrophils % Seg Neuts % (Manual) Lymphocytes % (Manual) Nucleated RBC % Seg Neutrophils # Man Lymphocytes # (Manual) PT INR Fibrinogen D-Dimer POC ABG pH POC ABG pCO2 POC ABG pO2 Sodium Potassium Chloride Carbon Dioxide BUN Creatinine Glucose POC Glucose 169 H 130 H Lactic Acid 2.90 H* Calcium Phosphorus Magnesium AST ALT Lactate Dehydrogenase C-Reactive Protein Total Protein Albumin Lipase Lymph Enumerat CD4/CD8 % CD4 Cells Absolute CD4 Count % CD8 Cells % CD19 Cells Absolute CD19 Count Hep Bs Antibody, Quant Hep B Core Total Ab Hepatitis Be Antigen HIV-1 RNA PCR copies/ml HIV-1 RNA (PCR) log 09/07/17 09/07/17 09/07/17 00:03 04:13 04:13 WBC RBC Hgb Hct MCV MCH RDW Plt Count [place] % (Auto) Seg Neutrophils % Seg Neuts % (Manual) Lymphocytes % (Manual) Nucleated RBC % Seg Neutrophils # Man Lymphocytes # (Manual) PT INR Fibrinogen D-Dimer POC ABG pH POC ABG pCO2 POC ABG pO2 Sodium 152 H Potassium 3.5 L Chloride 114.9 H Carbon Dioxide 34 H BUN 35 H Creatinine Glucose 149 H POC Glucose 123 H Lactic Acid Calcium Phosphorus Magnesium AST 150 H ALT 381 H Lactate Dehydrogenase C-Reactive Protein Total Protein Albumin 1.3 L Lipase Lymph Enumerat CD4/CD8 % CD4 Cells Absolute CD4 Count % CD8 Cells % CD19 Cells Absolute CD19 Count Hep Bs Antibody, Quant Hep B Core Total Ab Reactive H Hepatitis Be Antigen HIV-1 RNA PCR copies/ml HIV-1 RNA (PCR) log 09/07/17 09/07/1718 04:13 04:13 04:33 WBC RBC Hgb Hct MCV MCH RDW Plt Count [place] % (Auto) Seg Neutrophils % Seg Neuts % (Manual) Lymphocytes % (Manual) Nucleated RBC % Seg Neutrophils # Man Lymphocytes # (Manual) PT INR Fibrinogen D-Dimer POC ABG pH 7.590 H POC ABG pCO2 POC ABG pO2 179 H Sodium Potassium Chloride Carbon Dioxide BUN Creatinine Glucose POC Glucose Lactic Acid Calcium Phosphorus Magnesium AST ALT Lactate Dehydrogenase C-Reactive Protein Total Protein Albumin Lipase Lymph Enumerat CD4/CD8 % CD4 Cells Absolute CD4 Count % CD8 Cells % CD19 Cells Absolute CD19 Count Hep Bs Antibody, Quant <5 L Hep B Core Total Ab Hepatitis Be Antigen Reactive H HIV-1 RNA PCR copies/ml HIV-1 RNA (PCR) log 09/07/17 09/07/17 09/07/17 05:05 08:20 11:34 WBC 11.9 H RBC 3.11 L Hgb 8.4 L Hct 26.0 L MCV MCH 27 L RDW 16.2 H Plt Count 109 L [place] % (Auto) Seg Neutrophils % Seg Neuts % (Manual) 93.0 H Lymphocytes % (Manual) 1.0 L Nucleated RBC % Seg Neutrophils # Man 11.1 H Lymphocytes # (Manual) 0.1 L PT INR Fibrinogen D-Dimer POC ABG pH POC ABG pCO2 POC ABG pO2 Sodium Potassium Chloride Carbon Dioxide BUN Creatinine Glucose POC Glucose 168 H 156 H Lactic Acid Calcium Phosphorus Magnesium AST ALT Lactate Dehydrogenase C-Reactive Protein Total Protein Albumin Lipase Lymph Enumerat CD4/CD8 % CD4 Cells Absolute CD4 Count % CD8 Cells % CD19 Cells Absolute CD19 Count Hep Bs Antibody, Quant Hep B Core Total Ab Hepatitis Be Antigen HIV-1 RNA PCR copies/ml HIV-1 RNA (PCR) log 09/07/17 09/07/17 09/07/17 18:13 20:14 20:14 WBC 14.6 H RBC 3.36 L Hgb 9.2 L Hct 28.3 L MCV MCH 27 L RDW 16.1 H Plt Count 120 L [place] % (Auto) Seg Neutrophils % Seg Neuts % (Manual) 93.0 H Lymphocytes % (Manual) 2.0 L Nucleated RBC % Seg Neutrophils # Man 13.6 H Lymphocytes # (Manual) 0.3 L PT INR Fibrinogen D-Dimer POC ABG pH POC ABG pCO2 POC ABG pO2 Sodium 154 H Potassium 3.4 L Chloride 114.7 H Carbon Dioxide 34 H BUN 37 H Creatinine Glucose 131 H POC Glucose 136 H Lactic Acid Calcium Phosphorus Magnesium AST ALT Lactate Dehydrogenase C-Reactive Protein Total Protein Albumin Lipase Lymph Enumerat CD4/CD8 % CD4 Cells Absolute CD4 Count % CD8 Cells % CD19 Cells Absolute CD19 Count Hep Bs Antibody, Quant Hep B Core Total Ab Hepatitis Be Antigen HIV-1 RNA PCR copies/ml HIV-1 RNA (PCR) log 09/08/17 09/08/17 09/08/17 05:15 05:30 05:30 WBC 13.6 H RBC 3.29 L Hgb 9.1 L Hct 27.4 L MCV 83 L MCH RDW 15.8 H Plt Count 111 L [place] % (Auto) Seg Neutrophils % Seg Neuts % (Manual) 94.0 H Lymphocytes % (Manual) 4.0 L Nucleated RBC % 1.0 H Seg Neutrophils # Man 12.8 H Lymphocytes # (Manual) 0.5 L PT INR Fibrinogen D-Dimer POC ABG pH 7.460 H POC ABG pCO2 54.7 H POC ABG pO2 209 H Sodium Potassium Chloride Carbon Dioxide BUN Creatinine Glucose POC Glucose Lactic Acid Calcium Phosphorus Magnesium AST ALT Lactate Dehydrogenase C-Reactive Protein 8.70 H Total Protein Albumin Lipase Lymph Enumerat CD4/CD8 % CD4 Cells Absolute CD4 Count % CD8 Cells % CD19 Cells Absolute CD19 Count Hep Bs Antibody, Quant Hep B Core Total Ab Hepatitis Be Antigen HIV-1 RNA PCR copies/ml HIV-1 RNA (PCR) log 09/08/17 09/08/17 09/08/17 05:30 12:24 17:19 WBC RBC Hgb Hct MCV MCH RDW Plt Count [place] % (Auto) Seg Neutrophils % Seg Neuts % (Manual) Lymphocytes % (Manual) Nucleated RBC % Seg Neutrophils # Man Lymphocytes # (Manual) PT INR Fibrinogen D-Dimer POC ABG pH POC ABG pCO2 POC ABG pO2 Sodium 154 H Potassium Chloride 114.3 H Carbon Dioxide 36 H BUN 39 H Creatinine Glucose 163 H POC Glucose 181 H 170 H Lactic Acid Calcium Phosphorus Magnesium AST ALT Lactate Dehydrogenase C-Reactive Protein Total Protein Albumin Lipase Lymph Enumerat CD4/CD8 % CD4 Cells Absolute CD4 Count % CD8 Cells % CD19 Cells Absolute CD19 Count Hep Bs Antibody, Quant Hep B Core Total Ab Hepatitis Be Antigen HIV-1 RNA PCR copies/ml HIV-1 RNA (PCR) log 02/09/09/17 09/09/17 23:51 04:00 04:00 WBC 20.1 H RBC 3.37 L Hgb 9.2 L Hct 28.0 L MCV 83 L MCH 27 L RDW 15.7 H Plt Count 123 L [place] % (Auto) Seg Neutrophils % Seg Neuts % (Manual) 86.0 H Lymphocytes % (Manual) 9.0 L Nucleated RBC % Seg Neutrophils # Man 17.3 H Lymphocytes # (Manual) PT INR Fibrinogen D-Dimer POC ABG pH POC ABG pCO2 POC ABG pO2 Sodium 150 H Potassium 3.0 L Chloride 107.7 H Carbon Dioxide 35 H BUN 39 H Creatinine Glucose 174 H POC Glucose 185 H Lactic Acid Calcium Phosphorus Magnesium AST ALT Lactate Dehydrogenase C-Reactive Protein Total Protein Albumin Lipase Lymph Enumerat CD4/CD8 % CD4 Cells Absolute CD4 Count % CD8 Cells % CD19 Cells Absolute CD19 Count Hep Bs Antibody, Quant Hep B Core Total Ab Hepatitis Be Antigen HIV-1 RNA PCR copies/ml HIV-1 RNA (PCR) log 09/09/17 09/09/17 09/09/17 04:34 05:57 12:04 WBC RBC Hgb Hct MCV MCH RDW Plt Count [place] % (Auto) Seg Neutrophils % Seg Neuts % (Manual) Lymphocytes % (Manual) Nucleated RBC % Seg Neutrophils # Man Lymphocytes # (Manual) PT INR Fibrinogen D-Dimer POC ABG pH 7.575 H POC ABG pCO2 POC ABG pO2 63 L Sodium Potassium Chloride Carbon Dioxide BUN Creatinine Glucose POC Glucose 170 H 126 H Lactic Acid Calcium Phosphorus Magnesium AST ALT Lactate Dehydrogenase C-Reactive Protein Total Protein Albumin Lipase Lymph Enumerat CD4/CD8 % CD4 Cells Absolute CD4 Count % CD8 Cells % CD19 Cells Absolute CD19 Count Hep Bs Antibody, Quant Hep B Core Total Ab Hepatitis Be Antigen HIV-1 RNA PCR copies/ml HIV-1 RNA (PCR) log 09/09/17 09/10/17 09/10/17 17:31 00:02 03:46 WBC RBC Hgb Hct MCV MCH RDW Plt Count [place] % (Auto) Seg Neutrophils % Seg Neuts % (Manual) Lymphocytes % (Manual) Nucleated RBC % Seg Neutrophils # Man Lymphocytes # (Manual) PT INR Fibrinogen D-Dimer POC ABG pH 7.529 H POC ABG pCO2 45.6 H POC ABG pO2 69 L Sodium Potassium Chloride Carbon Dioxide BUN Creatinine Glucose POC Glucose 180 H 190 H Lactic Acid Calcium Phosphorus Magnesium AST ALT Lactate Dehydrogenase C-Reactive Protein Total Protein Albumin Lipase Lymph Enumerat CD4/CD8 % CD4 Cells Absolute CD4 Count % CD8 Cells % CD19 Cells Absolute CD19 Count Hep Bs Antibody, Quant Hep B Core Total Ab Hepatitis Be Antigen HIV-1 RNA PCR copies/ml HIV-1 RNA (PCR) log 09/10/17 09/10/17 09/10/17 04:44 04:50 06:19 WBC 21.7 H RBC 3.32 L Hgb 9.2 L Hct 28.0 L MCV MCH RDW 15.3 H Plt Count [place] % (Auto) Seg Neutrophils % Seg Neuts % (Manual) 96.0 H Lymphocytes % (Manual) 4.0 L Nucleated RBC % Seg Neutrophils # Man 20.8 H Lymphocytes # (Manual) 0.9 L PT INR Fibrinogen D-Dimer POC ABG pH POC ABG pCO2 POC ABG pO2 Sodium 149 H Potassium Chloride 109.8 H Carbon Dioxide 36 H BUN 34 H Creatinine 0.7 L Glucose 139 H POC Glucose 154 H Lactic Acid Calcium Phosphorus Magnesium AST ALT Lactate Dehydrogenase C-Reactive Protein Total Protein Albumin Lipase Lymph Enumerat CD4/CD8 % CD4 Cells Absolute CD4 Count % CD8 Cells % CD19 Cells Absolute CD19 Count Hep Bs Antibody, Quant Hep B Core Total Ab Hepatitis Be Antigen HIV-1 RNA PCR copies/ml HIV-1 RNA (PCR) log 09/10/17 09/10/17 09/10/17 11:58 17:15 23:24 WBC RBC Hgb Hct MCV MCH RDW Plt Count [place] % (Auto) Seg Neutrophils % Seg Neuts % (Manual) Lymphocytes % (Manual) Nucleated RBC % Seg Neutrophils # Man Lymphocytes # (Manual) PT INR Fibrinogen D-Dimer POC ABG pH POC ABG pCO2 POC ABG pO2 Sodium Potassium Chloride Carbon Dioxide BUN Creatinine Glucose POC Glucose 204 H 193 H 177 H Lactic Acid Calcium Phosphorus Magnesium AST ALT Lactate Dehydrogenase C-Reactive Protein Total Protein Albumin Lipase Lymph Enumerat CD4/CD8 % CD4 Cells Absolute CD4 Count % CD8 Cells % CD19 Cells Absolute CD19 Count Hep Bs Antibody, Quant Hep B Core Total Ab Hepatitis Be Antigen HIV-1 RNA PCR copies/ml HIV-1 RNA (PCR) log 09/11/17 09/11/17 09/11/17 04:03 05:39 06:00 WBC 15.9 H RBC 2.93 L Hgb 7.9 L Hct 24.9 L MCV MCH 27 L RDW 15.6 H Plt Count [place] % (Auto) Seg Neutrophils % Seg Neuts % (Manual) 99.0 H Lymphocytes % (Manual) 0 L Nucleated RBC % Seg Neutrophils # Man 15.7 H Lymphocytes # (Manual) 0.0 L PT INR Fibrinogen D-Dimer POC ABG pH 7.572 H POC ABG pCO2 POC ABG pO2 113 H Sodium Potassium Chloride Carbon Dioxide BUN Creatinine Glucose POC Glucose 144 H Lactic Acid Calcium Phosphorus Magnesium AST ALT Lactate Dehydrogenase C-Reactive Protein Total Protein Albumin Lipase Lymph Enumerat CD4/CD8 % CD4 Cells Absolute CD4 Count % CD8 Cells % CD19 Cells Absolute CD19 Count Hep Bs Antibody, Quant Hep B Core Total Ab Hepatitis Be Antigen HIV-1 RNA PCR copies/ml HIV-1 RNA (PCR) log 09/11/17 09/11/17 09/11/17 06:00 11:48 18:01 WBC RBC Hgb Hct MCV MCH RDW Plt Count [place] % (Auto) Seg Neutrophils % Seg Neuts % (Manual) Lymphocytes % (Manual) Nucleated RBC % Seg Neutrophils # Man Lymphocytes # (Manual) PT INR Fibrinogen D-Dimer POC ABG pH POC ABG pCO2 POC ABG pO2 Sodium Potassium Chloride 108.1 H Carbon Dioxide BUN 30 H Creatinine 0.6 L Glucose 132 H POC Glucose 179 H 135 H Lactic Acid Calcium 7.4 L D Phosphorus Magnesium AST ALT Lactate Dehydrogenase C-Reactive Protein Total Protein Albumin Lipase Lymph Enumerat CD4/CD8 % CD4 Cells Absolute CD4 Count % CD8 Cells % CD19 Cells Absolute CD19 Count Hep Bs Antibody, Quant Hep B Core Total Ab Hepatitis Be Antigen HIV-1 RNA PCR copies/ml HIV-1 RNA (PCR) log 09/12/17 09/12/17 09/12/17 00:22 04:24 06:41 WBC RBC Hgb Hct MCV MCH RDW Plt Count [place] % (Auto) Seg Neutrophils % Seg Neuts % (Manual) Lymphocytes % (Manual) Nucleated RBC % Seg Neutrophils # Man Lymphocytes # (Manual) PT INR Fibrinogen D-Dimer POC ABG pH POC ABG pCO2 53.5 H POC ABG pO2 79 L Sodium Potassium Chloride Carbon Dioxide BUN Creatinine Glucose POC Glucose 164 H 202 H Lactic Acid Calcium Phosphorus Magnesium AST ALT Lactate Dehydrogenase C-Reactive Protein Total Protein Albumin Lipase Lymph Enumerat CD4/CD8 % CD4 Cells Absolute CD4 Count % CD8 Cells % CD19 Cells Absolute CD19 Count Hep Bs Antibody, Quant Hep B Core Total Ab Hepatitis Be Antigen HIV-1 RNA PCR copies/ml HIV-1 RNA (PCR) log 09/12/17 09/12/17 09/12/17 12:17 17:28 21:44 WBC RBC Hgb Hct MCV MCH RDW Plt Count [place] % (Auto) Seg Neutrophils % Seg Neuts % (Manual) Lymphocytes % (Manual) Nucleated RBC % Seg Neutrophils # Man Lymphocytes # (Manual) PT INR Fibrinogen D-Dimer POC ABG pH POC ABG pCO2 POC ABG pO2 Sodium Potassium Chloride Carbon Dioxide BUN Creatinine Glucose POC Glucose 157 H 189 H Lactic Acid Calcium Phosphorus Magnesium AST ALT Lactate Dehydrogenase C-Reactive Protein 1.60 H Total Protein Albumin Lipase Lymph Enumerat CD4/CD8 % CD4 Cells Absolute CD4 Count % CD8 Cells % CD19 Cells Absolute CD19 Count Hep Bs Antibody, Quant Hep B Core Total Ab Hepatitis Be Antigen HIV-1 RNA PCR copies/ml HIV-1 RNA (PCR) log 09/13/17 09/13/17 09/13/17 00:16 03:56 05:47 WBC RBC Hgb Hct MCV MCH RDW Plt Count [place] % (Auto) Seg Neutrophils % Seg Neuts % (Manual) Lymphocytes % (Manual) Nucleated RBC % Seg Neutrophils # Man Lymphocytes # (Manual) PT INR Fibrinogen D-Dimer POC ABG pH 7.457 H POC ABG pCO2 49.9 H POC ABG pO2 Sodium Potassium Chloride Carbon Dioxide BUN Creatinine Glucose POC Glucose 164 H 190 H Lactic Acid Calcium Phosphorus Magnesium AST ALT Lactate Dehydrogenase C-Reactive Protein Total Protein Albumin Lipase Lymph Enumerat CD4/CD8 % CD4 Cells Absolute CD4 Count % CD8 Cells % CD19 Cells Absolute CD19 Count Hep Bs Antibody, Quant Hep B Core Total Ab Hepatitis Be Antigen HIV-1 RNA PCR copies/ml HIV-1 RNA (PCR) log 09/13/17 09/13/17 09/13/17 09:24 11:48 17:26 WBC RBC Hgb Hct MCV MCH RDW Plt Count [place] % (Auto) Seg Neutrophils % Seg Neuts % (Manual) Lymphocytes % (Manual) Nucleated RBC % Seg Neutrophils # Man Lymphocytes # (Manual) PT INR Fibrinogen D-Dimer POC ABG pH POC ABG pCO2 POC ABG pO2 Sodium Potassium Chloride Carbon Dioxide 31 H BUN 33 H Creatinine 0.6 L Glucose 177 H POC Glucose 196 H 163 H Lactic Acid Calcium Phosphorus Magnesium AST ALT Lactate Dehydrogenase C-Reactive Protein Total Protein Albumin Lipase Lymph Enumerat CD4/CD8 % CD4 Cells Absolute CD4 Count % CD8 Cells % CD19 Cells Absolute CD19 Count Hep Bs Antibody, Quant Hep B Core Total Ab Hepatitis Be Antigen HIV-1 RNA PCR copies/ml HIV-1 RNA (PCR) log 09/13/17 09/14/17 09/14/17 23:59 05:33 06:14 WBC RBC Hgb Hct MCV MCH RDW Plt Count [place] % (Auto) Seg Neutrophils % Seg Neuts % (Manual) Lymphocytes % (Manual) Nucleated RBC % Seg Neutrophils # Man Lymphocytes # (Manual) PT INR Fibrinogen D-Dimer POC ABG pH POC ABG pCO2 52.0 H POC ABG pO2 Sodium Potassium Chloride Carbon Dioxide BUN Creatinine Glucose POC Glucose 162 H 136 H Lactic Acid Calcium Phosphorus Magnesium AST ALT Lactate Dehydrogenase C-Reactive Protein Total Protein Albumin Lipase Lymph Enumerat CD4/CD8 % CD4 Cells Absolute CD4 Count % CD8 Cells % CD19 Cells Absolute CD19 Count Hep Bs Antibody, Quant Hep B Core Total Ab Hepatitis Be Antigen HIV-1 RNA PCR copies/ml HIV-1 RNA (PCR) log
--- NOTE | 2017-09-14 17:23 | Progress Note ---
Assessment and Plan Assessment and plan: 52-year-old male presents to the emergency department with complaint of shortness of breath and some midsternal right-sided chest discomfort with inspiration that started earlier this afternoon and radiates towards the back. The patient was just discharged from the [facility] a few days ago after treated for bilateral pneumonia. He is on Bactrim and just finished a course of antifungal medication for oral thrush. He does not smoke or use illicit drugs. His physicians are through the [facility]. Patient was recently discharged from a 6 day hospital stay at the [facility]. He denies any leg swelling, nausea, vomiting or fever. Septic shock due to underlying pneumonia Pneumonia bacteria - Ramón neg rods, Gram Negative bacteremia Patient is on Bactrim and azithromycin for prophylaxis Acute hypoxemic respiratory failure intubated 09/01/17, on MV >96 hours Hyperkalemia - corrected Anemia of chronic disease Hypernatremia multiple liver masses suspicious for metastatic disease Portal vein thrombosis? 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 The aggregate critical care time was [34] minutes. This time is in addition to time spent performing reported procedures but includes the following: [x] Data Review and interpretation [x] Patient assessment and monitoring of vital signs [x] Documentation [x] Medication orders and management History Interval history: Was seen and evaluated this morning, patient is intubated and on mechanical ventilation. Hospitalist Physical - Physical exam Narrative exam: Patient is intubated and on mechanical ventilation. The patient appeared well nourished and normally developed. Vital signs as documented. Head exam is unremarkable. No scleral icterus . Neck is without jugular venous distension, thyromegaly, or carotid bruits. Lungs are clear to auscultation. Cardiac exam reveals regular rate and Rhythm. First and second heart sounds normal. No murmurs, rubs or gallops. Abdominal exam reveals normal bowel sounds, no masses, no organomegaly and no aortic enlargement. Extremities are nonedematous and both femoral and pedal pulses are normal. CLIENT SUPPORT COORDINATOR: alert but intubated and couldn't talk. - Constitutional Vitals: Temp Pulse Resp BP Pulse Ox 99.0 F 89 16 98/63 99 09/14/17 16:00 09/14/17 16:00 09/14/17 16:00 09/14/17 16:00 09/14/17 16:00 General appearance: Present: no acute distress, well-nourished, other (intubated ) Results - Labs CBC & Chem 7: 09/11/17 06:00 09/13/17 09:24 Labs: Laboratory Last Values WBC 15.9 K/mm3 (4.5-11.0) H 09/11/17 06:00 RBC 2.93 M/mm3 (3.65-5.03) L 09/11/17 06:00 Hgb 7.9 gm/dl (11.8-15.2) L 09/11/17 06:00 Hct 24.9 % (35.5-45.6) L 09/11/17 06:00 MCV 85 fl (84-94) 09/11/17 06:00 MCH 27 pg (28-32) L 09/11/17 06:00 MCHC 32 % (32-34) 09/11/17 06:00 RDW 15.6 % (13.2-15.2) H 09/11/17 06:00 Plt Count 147 K/mm3 (140-440) 09/11/17 06:00 Iron % (Auto) 12.6 % (0.0-7.3) H 09/02/17 07:36 Eos % (Auto) 0.3 % (0.0-4.3) 09/02/17 07:36 Iron # 0.4 K/mm3 (0.0-0.8) 09/02/17 07:36 Eos # 0.0 K/mm3 (0.0-0.4) 09/02/17 07:36 Baso # 0.0 K/mm3 (0.0-0.1) 09/02/17 07:36 Add Manual Diff Complete 09/11/17 06:00 Total Counted 100 09/11/17 06:00 Seg Neutrophils % Electric Motorman 09/11/17 06:00 Seg Neuts % (Manual) 99.0 % (40.0-70.0) H 09/11/17 06:00 Band Neutrophils % 0 % 09/11/17 06:00 Lymphocytes % (Manual) 0 % (13.4-35.0) L 09/11/17 06:00 Reactive Lymphs % (Man) 0 % 09/11/17 06:00 Monocytes % (Manual) 1.0 % (0.0-7.3) 09/11/17 06:00 Eosinophils % (Manual) 0 % (0.0-4.3) 09/11/17 06:00 Basophils % (Manual) 0 % (0.0-1.8) 09/11/17 06:00 Metamyelocytes % 0 % 09/11/17 06:00 Myelocytes % 0 % 09/11/17 06:00 Promyelocytes % 0 % 09/11/17 06:00 Blast Cells % 0 % 09/11/17 06:00 Nucleated RBC % Not Reportable 09/11/17 06:00 Seg Neutrophils # 2.1 K/mm3 (1.8-7.7) 09/02/17 07:36 Seg Neutrophils # Man 15.7 K/mm3 (1.8-7.7) H 09/11/17 06:00 Band Neutrophils # 0.0 K/mm3 09/11/17 06:00 Abs Lymphs (Manual) 1470 cells/uL (850-3900) 09/05/17 14:30 Lymphocytes # (Manual) 0.0 K/mm3 (1.2-5.4) L 09/11/17 06:00 Abs React Lymphs (Man) 0.0 K/mm3 09/11/17 06:00 Monocytes # (Manual) 0.2 K/mm3 (0.0-0.8) 09/11/17 06:00 Eosinophils # (Manual) 0.0 K/mm3 (0.0-0.4) 09/11/17 06:00 Basophils # (Manual) 0.0 K/mm3 (0.0-0.1) 09/11/17 06:00 Metamyelocytes # 0.0 K/mm3 09/11/17 06:00 Myelocytes # 0.0 K/mm3 09/11/17 06:00 Promyelocytes # 0.0 K/mm3 09/11/17 06:00 Blast Cells # 0.0 K/mm3 09/11/17 06:00 WBC Morphology Not Reportable 09/11/17 06:00 Hypersegmented Neuts Not Reportable 09/11/17 06:00 Hyposegmented Neuts Not Reportable 09/11/17 06:00 Hypogranular Neuts Not Reportable 09/11/17 06:00 Smudge Cells Not Reportable 09/11/17 06:00 Toxic Granulation Not Reportable 09/11/17 06:00 Toxic Vacuolation Not Reportable 09/11/17 06:00 Dohle Bodies Not Reportable 09/11/17 06:00 Pelger-Huet Anomaly Not Reportable 09/11/17 06:00 Efren Rods Not Reportable 09/11/17 06:00 Platelet Estimate Cons 09/11/17 06:00 Clumped Platelets Not Reportable 09/11/17 06:00 Plt Clumps, EDTA Not Reportable 09/11/17 06:00 Large Platelets Few 09/11/17 06:00 Giant Platelets Not Reportable 09/11/17 06:00 Platelet Satelliting Not Reportable 09/11/17 06:00 Plt Morphology Comment Not Reportable 09/11/17 06:00 RBC Morphology Not Reportable 09/11/17 06:00 Dimorphic RBCs Not Reportable 09/11/17 06:00 Polychromasia Not Reportable 09/11/17 06:00 Hypochromasia Not Reportable 09/11/17 06:00 Poikilocytosis Not Reportable 09/11/17 06:00 Anisocytosis 1+ 09/11/17 06:00 Microcytosis Not Reportable 09/11/17 06:00 Macrocytosis Not Reportable 09/11/17 06:00 Spherocytes Not Reportable 09/11/17 06:00 Pappenheimer Bodies Not Reportable 09/11/17 06:00 Sickle Cells Not Reportable 09/11/17 06:00 Target Cells Not Reportable 09/11/17 06:00 Tear Drop Cells Not Reportable 09/11/17 06:00 Ovalocytes Not Reportable 09/11/17 06:00 Helmet Cells Not Reportable 09/11/17 06:00 Mai-Antler Bodies Not Reportable 09/11/17 06:00 [place] Rings Not Reportable 09/11/17 06:00 [place] Cells Not Reportable 09/11/17 06:00 Bite Cells Not Reportable 09/11/17 06:00 Crenated Cell Not Reportable 09/11/17 06:00 Elliptocytes Not Reportable 09/11/17 06:00 Acanthocytes (Spur) Not Reportable 09/11/17 06:00 Rouleaux Not Reportable 09/11/17 06:00 Hemoglobin C Crystals Not Reportable 09/11/17 06:00 Schistocytes Not Reportable 09/11/17 06:00 Malaria parasites Not Reportable 09/11/17 06:00 Scott Bodies Not Reportable 09/11/17 06:00 Hem Pathologist Commnt No 09/11/17 06:00 PT 14.7 Sec. (12.2-14.9) 09/12/17 10:29 INR 1.09 (0.87-1.13) 09/12/17 10:29 APTT 26.2 Sec. (24.2-36.6) 09/12/17 10:29 Fibrinogen 611 mg/dl (211-480) H 09/04/17 17:23 D-Dimer 976.43 ng/mlDDU (0-234) H 09/01/17 23:27 POC ABG pH 7.415 (7.35-7.45) 09/14/17 06:14 POC ABG pCO2 52.0 (35-45) H 09/14/17 06:14 POC ABG pO2 85 (80-105) 09/14/17 06:14 POC ABG HCO3 33.3 09/14/17 06:14 POC ABG Total CO2 35 09/14/17 06:14 POC ABG O2 Sat 96 09/14/17 06:14 POC ABG Base Excess 9 09/14/17 06:14 FiO2 30 % 09/14/17 06:14 Sodium 138 mmol/L (137-145) 09/13/17 09:24 Potassium 4.5 mmol/L (3.6-5.0) 09/13/17 09:24 Chloride 101.5 mmol/L (98-107) 09/13/17 09:24 Carbon Dioxide 31 mmol/L (22-30) H 09/13/17 09:24 Anion Gap 10 mmol/L 09/13/17 09:24 BUN 33 mg/dL (9-20) H 09/13/17 09:24 Creatinine 0.6 mg/dL (0.8-1.5) L 09/13/17 09:24 Estimated GFR > 60 ml/min 09/13/17 09:24 BUN/Creatinine Ratio 55 % 09/13/17 09:24 Glucose 177 mg/dL (75-100) H 09/13/17 09:24 POC Glucose 154 (70-105) H 09/14/17 12:15 Lactic Acid 2.90 mmol/L (0.7-2.0) H* 09/06/17 08:03 Calcium 9.2 mg/dL (8.4-10.2) D 09/13/17 09:24 Phosphorus 2.50 mg/dL (2.5-4.5) 09/13/17 09:24 Magnesium 2.00 mg/dL (1.7-2.3) 09/13/17 09:24 Total Bilirubin 0.30 mg/dL (0.1-1.2) 09/07/17 04:13 AST 150 units/L (5-40) H 09/07/17 04:13 ALT 381 units/L (7-56) H 09/07/17 04:13 Alkaline Phosphatase 103 units/L (35-129) 09/07/17 04:13 Lactate Dehydrogenase 571 units/L (91-180) H 09/05/17 10:55 Troponin T < 0.010 ng/mL (0.00-0.029) 09/01/17 23:27 C-Reactive Protein 1.60 mg/dL (0.00-1.30) H 09/12/17 21:44 NT-Pro-B Natriuret Pep 315.2 pg/mL (0-900) 09/01/17 23:27 Total Protein 7.0 g/dL (6.3-8.2) 09/07/17 04:13 Albumin 1.3 g/dL (3.9-5) L 09/07/17 04:13 Albumin/Globulin Ratio 0.2 % 09/07/17 04:13 Lipase 12 units/L (13-60) L 09/04/17 17:23 Vancomycin Trough 22.0 ug/mL (5.0-20.0) H 09/14/17 12:00 Lymph Enumerat CD4/CD8 0.10 (0.86-5.00) L 09/05/17 14:30 % CD3 Cells 75 % (57-85) 09/05/17 14:30 Absolute CD3 Count 1105 cells/uL (840-3060) 09/05/17 14:30 % CD4 Cells 7 % (30-61) L 09/05/17 14:30 Absolute CD4 Count 101 cells/uL (490-1740) L 09/05/17 14:30 % CD8 Cells 66 % (12-42) H 09/05/17 14:30 Absolute CD8 Count 986 cells/uL (180-1170) 09/05/17 14:30 % CD19 Cells 4 % (6-29) L 09/05/17 14:30 Absolute CD19 Count 60 cells/uL (110-660) L 09/05/17 14:30 RPR Nonreactive (Nonreactive) 09/07/17 04:13 Hepatitis A IgM Ab Non-reactive (NonReactive) 09/05/17 10:55 Hep Bs Antigen Reactive (Negative) 09/05/17 10:55 Hep Bs Antibody, Quant <5 mIU/mL (>=10) L 09/07/17 04:13 Hep B Core Total Ab Reactive (Nonreactive) H 09/07/17 04:13 Hep B Core IgM Ab Non-reactive (NonReactive) 09/05/17 10:55 Hepatitis Be Antibody Nonreactive 09/07/17 04:13 Hepatitis Be Antigen Reactive H 09/07/17 04:13 Hepatitis C Antibody Non-reactive (NonReactive) 09/05/17 10:55 HIV-1 RNA PCR copies/ml 1750 Copies/mL H 09/05/17 14:30 HIV-1 RNA (PCR) log 3.24 Log cps/mL H 09/05/17 14:30 HIV-1 Genotyping see below 09/05/17 14:30 HIV 1&2 Antibody Rapid Reactive (Non React) 09/02/17 19:34 HIV P24 Antigen Non react (Non React) 09/02/17 19:34 Urine Legionella Ag Not detected (Not Detected) 09/02/17 13:55 TB (QFT) Gold In Tube Negative (Negative) 09/05/17 14:30 TB Test (QFT) Nil 0.04 IU/mL 09/05/17 14:30 TB Test Mitogen - Nil 2.28 IU/mL 09/05/17 14:30 TB Test Antigen - Nil 0.00 IU/mL 09/05/17 14:30 Miscellaneous Test Flexitest 1 09/06/17 11:30
--- NOTE | 2017-09-14 18:11 | Progress Note ---
Assessment and Plan Assessment: 1) Severe Sepsis with septic shock versus card shock / third spacing: still pressors levophed at 3, unclear etiology ?pneumonia with effusion. Initial Etiology most likely E coli septicemia and pneumonia. -CRP 22. --> 1.6 -Lactic acid better as of 09/06. 2) E. coli septicemia: unknown source ? Pneumonia ? UTI (UCx negative) ? GI -Blood cultures 09/01 positive 4 of 4 bottles. E coli sens to cefepime/zosyn -Repeat Blood cultures 09/04 negative. -TTE 09/02 no vegetations. 3) Bilateral pneumonia: recently treated at [facility]. -Tracheal asp with normal fiordaliza. - CT chest 09/02 with extensive bilateral pulmonary opacities due to edema vs PNA. Also component of atelectasis. Bilateral pleural effusions. - Legionella and Strep pneumo ag in urine negative - On bactrim and steroids since 09/05. -PJP DFA negative -repeat CT patchy infiltrate in RUL and large right effusion/mod left effusion 4) Acute respiratory failure. Intubated. From pneumonia +/- CHF 5) HIV/AIDS, poorly compliant with HAART for past > 1 year per [facility]; last CD4 per [facility] was 133. [id number] on 08/26/17 -RPR neg -fungal blood cx neg 6) Abnormal CT A/P with numerous liver lesions suspicious for metastatic liver disease, moderate ascites, possible partial vein thrombosis. 7) Encephalopathy. 8) Transaminitis. Improved. ?hep B. ?cirrhosis -Hep B Surface ag positive, HBVe antigen positive, HBV core total ab positive -Hep C negative -CT + Ascitis -US + ? portal venous thrombosis, multiple liver lesions 9) Acute Thrombocytopenia. Improved. 10) Low EF Plan: -GI med consult for elevated LFTs and abnormal liver US ? HBV with cirrhosis ? malignancy -check cortisol -continue cefepime and vancomycin - day 3 of 7 -consider thoracentesis -continue bactrim DS 1 tab qday for prophylaxis -continue azithromycin 1200 mg qweek for prophylaxis -Will f/u genotype, HLA [id number], quantiferon, hep B viral load. -Will f/u AFB blood cultures Eduarda Rolon MD Infectious Diseases Specialist [facility] M [phone] O [phone] Subjective Date of service: 09/14/17 Principal diagnosis: Septic shock, acute hypoxemic respiratory failure, [place] Interval history: Remains intubated. Afebrile. back on pressors-levophed at3 mcg Microbiology: Blood cultures: 09/01 E coli x 4 bottles 09/04 Neg 09/06 ngtd Fungal blood culture: 09/06 pending Urine cultures: 09/02 Neg Respiratory cultures: TA 09/02 normal fiordaliza Crypto ag in serum negative Current Antimicrobials: Cefepime 09/12 Vanco 09/12 Bactrim 09/05- Azithromycin 09/06- Solumedrol 09/05- Previous Antimicrobials: Zosyn 09/02 Azithro 09/02 Meropenem 09/02- Fluconazole 09/03- Objective - Exam Narrative Exam: General appearance: sedated on the vent alert anxious eye open Eyes: anicteric sclerae, moist conjunctivae HENT: Atraumatic; oropharynx + ETT, + NGT Neck: Trachea midline; supple, no thyromegaly or lymphadenopathy Lungs: lila rhonchi CV: RRR, no murmurs Abdomen: distended tense +BS Extremities: lila arm edema Skin: Normal temperature, turgor and texture; no rash, ulcers or subcutaneous nodules Psych: sedated. Neuro: sedated Lines: right IJ TLC / Quach clear urine - Constitutional Vitals: Vital Signs Temp Pulse Resp BP Pulse Ox 99.0 F 89 16 98/63 99 09/14/17 16:00 09/14/17 16:00 09/14/17 16:00 09/14/17 16:00 09/14/17 16:00 Temperature -Last 24 Hours Temperature 99.0 F Temperature 98.6 F Temperature 98.0 F Temperature 98.8 F Temperature 98.6 F Temperature 98.0 F - Labs CBC & Chem 7: 09/11/17 06:00 09/13/17 09:24 Labs: Abnormal lab results 09/13/17 09/13/17 09/13/17 Range/Units 11:48 17:26 23:59 POC ABG pCO2 (35-45) POC Glucose 196 H 163 H 162 H (70-105) Vancomycin Trough (5.0-20.0) ug/mL 03/01/18 03/01/18 03/01/18 Range/Units 05:33 06:14 12:00 POC ABG pCO2 52.0 H (35-45) POC Glucose 136 H (70-105) Vancomycin Trough 22.0 H (5.0-20.0) ug/mL 09/14/17 Range/Units 12:15 POC ABG pCO2 (35-45) POC Glucose 154 H (70-105) Vancomycin Trough (5.0-20.0) ug/mL
[2017-09-15] MEDS: VANCOMYCIN 1,500 MG in NACL 0.9% 500 ML 500 ML IV SCH (00:44)
[2017-09-15] MEDS: DUONEB *Not for PRN Use IH SCH ×4 (01:19→19:59)
[2017-09-15] MEDS: MAXIPIME 2 GM in NACL 0.9% 20 ML IV SCH ×3 (03:50→19:06)
[2017-09-15] MEDS: NOVOLOG SUB-Q SCH ×3 (05:18→19:02)
--- NOTE | 2017-09-15 09:16 | Progress Note ---
Assessment and Plan 52 y/o male, vet, admitted with acute respiratory failure thought secondary to pneumonia with lactic acidosis, found to have newly diagnosed HIV being treated empirically for PJP and with systolic heart failure 1. Today is day 13 of intubation. Tolerating PSV so far. Will discuss with son the possiblity of trach, but most likely will need this for vent weaning. will attempt extubation later today.. Will give lasix prior to extubation and have bipap available if needed. If patient fails, trach will definitely be next option. 2. Abx therapy per ID 3. Continue daily lasix therapy for volume overload as long as BP and renal function will allow. Will order labs as none done this am. Will also order coreg therapy, start low dose to help with tachycardia and overall cardiac function 4. Strict I/O 5. Continue feeds as tolerated 6. Overall prognosis is guarded to poor. CCT 31 minutes. Subjective Date of service: 09/15/17 Principal diagnosis: Septic shock, acute hypoxemic respiratory failure, [place] Interval history: No acute events overnight. Spoke with RT and this am bose been very tachy and more anxious. Also back on levophed drip. Family at bedside but patient is awake and alert and follows commands. Still on minimal support. Objective Vital Signs - 12hr 09/14/17 09/14/17 09/14/17 21:15 21:30 21:45 Temperature Pulse Rate 111 H 103 H 104 H Pulse Rate [ Anterior Bilateral Throughout] Respiratory 13 20 16 Rate Respiratory Rate [Anterior Bilateral Throughout] Blood Pressure 104/68 122/80 111/80 O2 Sat by Pulse 100 100 99 Oximetry 09/14/17 09/14/17 09/14/17 22:00 22:15 22:30 Temperature Pulse Rate 113 H 108 H 91 H Pulse Rate [ Anterior Bilateral Throughout] Respiratory 17 15 15 Rate Respiratory Rate [Anterior Bilateral Throughout] Blood Pressure 106/74 106/74 103/63 O2 Sat by Pulse 100 100 100 Oximetry 09/14/17 09/14/17 09/14/17 22:45 23:00 23:15 Temperature Pulse Rate 105 H 102 H 93 H Pulse Rate [ Anterior Bilateral Throughout] Respiratory 17 24 16 Rate Respiratory Rate [Anterior Bilateral Throughout] Blood Pressure 107/72 117/79 98/60 O2 Sat by Pulse 100 100 99 Oximetry 09/14/17 09/14/17 09/14/17 23:19 23:30 23:45 Temperature Pulse Rate 88 95 H 97 H Pulse Rate [ Anterior Bilateral Throughout] Respiratory 16 16 16 Rate Respiratory Rate [Anterior Bilateral Throughout] Blood Pressure 98/60 108/64 106/68 O2 Sat by Pulse 100 100 100 Oximetry 09/15/17 09/15/17 09/15/17 00:00 00:15 00:30 Temperature 98.8 F Pulse Rate 100 H 97 H 94 H Pulse Rate [ Anterior Bilateral Throughout] Respiratory 18 12 17 Rate Respiratory Rate [Anterior Bilateral Throughout] Blood Pressure 109/64 99/67 103/65 O2 Sat by Pulse 98 100 100 Oximetry 09/15/17 09/15/17 09/15/17 00:33 00:45 01:00 Temperature Pulse Rate 95 H 85 88 Pulse Rate [ Anterior Bilateral Throughout] Respiratory 16 17 Rate Respiratory Rate [Anterior Bilateral Throughout] Blood Pressure 103/65 107/73 101/66 O2 Sat by Pulse 100 100 100 Oximetry 09/15/17 09/15/17 09/15/17 01:15 01:19 01:30 Temperature Pulse Rate 93 H 89 Pulse Rate [ 92 H Anterior Bilateral Throughout] Respiratory 16 16 Rate Respiratory 16 Rate [Anterior Bilateral Throughout] Blood Pressure 108/74 100/68 O2 Sat by Pulse 99 100 Oximetry 09/15/17 09/15/17 09/15/17 01:45 02:00 02:15 Temperature Pulse Rate 90 86 94 H Pulse Rate [ Anterior Bilateral Throughout] Respiratory 18 16 18 Rate Respiratory Rate [Anterior Bilateral Throughout] Blood Pressure 95/68 101/68 108/76 O2 Sat by Pulse 100 99 100 Oximetry 09/15/17 09/15/17 09/15/17 02:30 02:45 03:00 Temperature Pulse Rate 96 H 101 H 104 H Pulse Rate [ Anterior Bilateral Throughout] Respiratory 22 18 15 Rate Respiratory Rate [Anterior Bilateral Throughout] Blood Pressure 111/78 115/76 113/81 O2 Sat by Pulse 100 100 100 Oximetry 09/15/17 09/15/17 09/15/17 03:15 03:30 03:45 Temperature Pulse Rate 110 H 115 H 113 H Pulse Rate [ Anterior Bilateral Throughout] Respiratory 29 H 30 H 29 H Rate Respiratory Rate [Anterior Bilateral Throughout] Blood Pressure 111/78 120/86 132/87 O2 Sat by Pulse 100 99 100 Oximetry 09/15/17 09/15/17 09/15/17 04:00 04:15 04:30 Temperature 98.6 F Pulse Rate 112 H 98 H 116 H Pulse Rate [ Anterior Bilateral Throughout] Respiratory 15 15 25 H Rate Respiratory Rate [Anterior Bilateral Throughout] Blood Pressure 109/73 108/72 113/88 O2 Sat by Pulse 100 100 100 Oximetry 09/15/17 09/15/17 09/15/17 04:45 05:00 05:15 Temperature Pulse Rate 107 H 122 H Pulse Rate [ Anterior Bilateral Throughout] Respiratory 28 H 30 H Rate Respiratory Rate [Anterior Bilateral Throughout] Blood Pressure 108/72 121/97 149/99 O2 Sat by Pulse 100 100 99 Oximetry 09/15/17 09/15/17 09/15/17 05:31 05:45 06:00 Temperature Pulse Rate 123 H 130 H 138 H Pulse Rate [ Anterior Bilateral Throughout] Respiratory 32 H 39 H 37 H Rate Respiratory Rate [Anterior Bilateral Throughout] Blood Pressure 141/63 149/99 132/88 O2 Sat by Pulse 99 99 99 Oximetry 09/15/17 09/15/17 09/15/17 06:15 08:00 08:29 Temperature 99.1 F Pulse Rate 126 H 134 H Pulse Rate [ Anterior Bilateral Throughout] Respiratory 24 Rate Respiratory Rate [Anterior Bilateral Throughout] Blood Pressure 141/63 109/78 O2 Sat by Pulse 99 100 Oximetry 09/15/17 08:49 Temperature Pulse Rate 122 H Pulse Rate [ Anterior Bilateral Throughout] Respiratory 29 H Rate Respiratory Rate [Anterior Bilateral Throughout] Blood Pressure 90/55 O2 Sat by Pulse 99 Oximetry Constitutional: other (critically ill on vent, sedated) Eyes: non-icteric ENT: other (orally intubated and sedated) Neck: supple Effort: normal Ascultation: Bilateral: diminished breath sounds, rales, other (coarse BS bilaterally) Percussion: Bilateral: not dull Cardiovascular: regular rate and rhythm (sinus tach) Gastrointestinal: hypoactive bowel sounds, soft, non-tender, non-distended Extremities: no cyanosis, no edema, pink and warm Neurologic: normal mental status, non-focal exam, pupils equal and round, CN II- XII normal Psychiatric: other (unable to assess) CBC and BMP: 09/11/17 06:00 09/13/17 09:24 ABG, PT/INR, D-dimer: ABG POC ABG pH 7.415 (7.35-7.45) 09/14/17 06:14 POC ABG pCO2 52.0 (35-45) H 09/14/17 06:14 POC ABG pO2 85 (80-105) 09/14/17 06:14 POC ABG HCO3 33.3 09/14/17 06:14 POC ABG Total CO2 35 09/14/17 06:14 POC ABG O2 Sat 96 09/14/17 06:14 PT/INR, D-dimer PT 14.7 Sec. (12.2-14.9) 09/12/17 10:29 INR 1.09 (0.87-1.13) 09/12/17 10:29 D-Dimer 976.43 ng/mlDDU (0-234) H 09/01/17 23:27 Abnormal lab findings: Abnormal Labs 09/01/17 09/01/17 09/01/17 19:00 19:00 23:27 WBC RBC Hgb 10.9 L Hct 32.3 L MCV 83 L MCH RDW 15.6 H Plt Count [place] % (Auto) Seg Neutrophils % Seg Neuts % (Manual) Lymphocytes % (Manual) Nucleated RBC % Seg Neutrophils # Man Lymphocytes # (Manual) PT INR Fibrinogen D-Dimer 976.43 H POC ABG pH POC ABG pCO2 POC ABG pO2 Sodium 133 L Potassium Chloride 96.4 L Carbon Dioxide BUN Creatinine Glucose 113 H POC Glucose Lactic Acid Calcium Phosphorus Magnesium AST ALT Lactate Dehydrogenase C-Reactive Protein Total Protein Albumin Lipase Vancomycin Trough Lymph Enumerat CD4/CD8 % CD4 Cells Absolute CD4 Count % CD8 Cells % CD19 Cells Absolute CD19 Count Hep Bs Antibody, Quant Hep B Core Total Ab Hepatitis Be Antigen HIV-1 RNA PCR copies/ml HIV-1 RNA (PCR) log 09/01/17 09/02/17 09/02/17 23:27 01:25 07:36 WBC 2.2 L RBC 3.41 L Hgb 9.6 L Hct 28.9 L MCV MCH RDW 16.0 H Plt Count [place] % (Auto) 12.6 H Seg Neutrophils % 70.4 H Seg Neuts % (Manual) Lymphocytes % (Manual) Nucleated RBC % Seg Neutrophils # Man 1.1 L Lymphocytes # (Manual) 0.6 L PT INR Fibrinogen D-Dimer POC ABG pH POC ABG pCO2 POC ABG pO2 Sodium Potassium Chloride Carbon Dioxide BUN Creatinine Glucose POC Glucose Lactic Acid 3.30 H* 4.10 H* Calcium Phosphorus Magnesium AST ALT Lactate Dehydrogenase C-Reactive Protein Total Protein Albumin Lipase Vancomycin Trough Lymph Enumerat CD4/CD8 % CD4 Cells Absolute CD4 Count % CD8 Cells % CD19 Cells Absolute CD19 Count Hep Bs Antibody, Quant Hep B Core Total Ab Hepatitis Be Antigen HIV-1 RNA PCR copies/ml HIV-1 RNA (PCR) log 09/02/17 09/02/17 09/02/17 07:36 07:36 07:36 WBC RBC Hgb Hct MCV MCH RDW Plt Count [place] % (Auto) Seg Neutrophils % Seg Neuts % (Manual) Lymphocytes % (Manual) Nucleated RBC % Seg Neutrophils # Man Lymphocytes # (Manual) PT 18.6 H INR 1.46 H Fibrinogen D-Dimer POC ABG pH POC ABG pCO2 POC ABG pO2 Sodium 136 L Potassium Chloride Carbon Dioxide BUN Creatinine Glucose POC Glucose Lactic Acid 3.80 H* Calcium Phosphorus Magnesium 1.20 L AST ALT Lactate Dehydrogenase C-Reactive Protein Total Protein 9.1 H Albumin 2.0 L Lipase Vancomycin Trough Lymph Enumerat CD4/CD8 % CD4 Cells Absolute CD4 Count % CD8 Cells % CD19 Cells Absolute CD19 Count Hep Bs Antibody, Quant Hep B Core Total Ab Hepatitis Be Antigen HIV-1 RNA PCR copies/ml HIV-1 RNA (PCR) log 09/02/17 09/02/17 09/02/17 08:49 09:40 11:33 WBC RBC Hgb Hct MCV MCH RDW Plt Count [place] % (Auto) Seg Neutrophils % Seg Neuts % (Manual) Lymphocytes % (Manual) Nucleated RBC % Seg Neutrophils # Man Lymphocytes # (Manual) PT INR Fibrinogen D-Dimer POC ABG pH 7.313 L POC ABG pCO2 POC ABG pO2 116 H Sodium Potassium Chloride Carbon Dioxide BUN Creatinine Glucose POC Glucose Lactic Acid 3.60 H* 5.20 H* Calcium Phosphorus Magnesium AST ALT Lactate Dehydrogenase C-Reactive Protein Total Protein Albumin Lipase Vancomycin Trough Lymph Enumerat CD4/CD8 % CD4 Cells Absolute CD4 Count % CD8 Cells % CD19 Cells Absolute CD19 Count Hep Bs Antibody, Quant Hep B Core Total Ab Hepatitis Be Antigen HIV-1 RNA PCR copies/ml HIV-1 RNA (PCR) log 09/02/17 09/02/17 09/02/17 19:34 23:37 23:40 WBC RBC Hgb Hct MCV MCH RDW Plt Count [place] % (Auto) Seg Neutrophils % Seg Neuts % (Manual) Lymphocytes % (Manual) Nucleated RBC % Seg Neutrophils # Man Lymphocytes # (Manual) PT INR Fibrinogen D-Dimer POC ABG pH POC ABG pCO2 POC ABG pO2 Sodium Potassium Chloride Carbon Dioxide BUN Creatinine Glucose 59 L POC Glucose 47 L Lactic Acid Calcium Phosphorus Magnesium AST ALT Lactate Dehydrogenase C-Reactive Protein 22.30 H Total Protein Albumin Lipase Vancomycin Trough Lymph Enumerat CD4/CD8 % CD4 Cells Absolute CD4 Count % CD8 Cells % CD19 Cells Absolute CD19 Count Hep Bs Antibody, Quant Hep B Core Total Ab Hepatitis Be Antigen HIV-1 RNA PCR copies/ml HIV-1 RNA (PCR) log 09/03/17 09/03/17 09/03/17 00:06 05:15 05:15 WBC RBC 3.59 L Hgb 10.1 L Hct 31.5 L MCV MCH RDW 18.0 H Plt Count [place] % (Auto) Seg Neutrophils % Seg Neuts % (Manual) Lymphocytes % (Manual) 1.0 L Nucleated RBC % 1.0 H Seg Neutrophils # Man Lymphocytes # (Manual) 0.1 L PT INR Fibrinogen D-Dimer POC ABG pH POC ABG pCO2 POC ABG pO2 Sodium Potassium Chloride Carbon Dioxide BUN Creatinine Glucose POC Glucose 144 H Lactic Acid 9.10 H* Calcium Phosphorus Magnesium AST ALT Lactate Dehydrogenase C-Reactive Protein Total Protein Albumin Lipase Vancomycin Trough Lymph Enumerat CD4/CD8 % CD4 Cells Absolute CD4 Count % CD8 Cells % CD19 Cells Absolute CD19 Count Hep Bs Antibody, Quant Hep B Core Total Ab Hepatitis Be Antigen HIV-1 RNA PCR copies/ml HIV-1 RNA (PCR) log 09/03/17 09/03/17 09/03/17 05:15 05:55 07:40 WBC RBC Hgb Hct MCV MCH RDW Plt Count [place] % (Auto) Seg Neutrophils % Seg Neuts % (Manual) Lymphocytes % (Manual) Nucleated RBC % Seg Neutrophils # Man Lymphocytes # (Manual) PT INR Fibrinogen D-Dimer POC ABG pH 6.999 L POC ABG pCO2 POC ABG pO2 64 L Sodium Potassium 5.6 H D Chloride 108.4 H Carbon Dioxide 11 L D BUN 30 H Creatinine Glucose 115 H POC Glucose Lactic Acid 9.20 H* Calcium 7.3 L D Phosphorus 6.40 H Magnesium AST 88 H ALT Lactate Dehydrogenase C-Reactive Protein Total Protein Albumin 1.7 L Lipase Vancomycin Trough Lymph Enumerat CD4/CD8 % CD4 Cells Absolute CD4 Count % CD8 Cells % CD19 Cells Absolute CD19 Count Hep Bs Antibody, Quant Hep B Core Total Ab Hepatitis Be Antigen HIV-1 RNA PCR copies/ml HIV-1 RNA (PCR) log 09/03/17 09/03/17 09/03/17 09:55 12:03 13:17 WBC RBC Hgb Hct MCV MCH RDW Plt Count [place] % (Auto) Seg Neutrophils % Seg Neuts % (Manual) Lymphocytes % (Manual) Nucleated RBC % Seg Neutrophils # Man Lymphocytes # (Manual) PT INR Fibrinogen D-Dimer POC ABG pH POC ABG pCO2 POC ABG pO2 Sodium Potassium Chloride Carbon Dioxide BUN Creatinine Glucose POC Glucose 155 H Lactic Acid 9.50 H* 9.90 H* Calcium Phosphorus Magnesium AST ALT Lactate Dehydrogenase C-Reactive Protein Total Protein Albumin Lipase Vancomycin Trough Lymph Enumerat CD4/CD8 % CD4 Cells Absolute CD4 Count % CD8 Cells % CD19 Cells Absolute CD19 Count Hep Bs Antibody, Quant Hep B Core Total Ab Hepatitis Be Antigen HIV-1 RNA PCR copies/ml HIV-1 RNA (PCR) log 09/03/17 09/03/17 09/03/17 15:55 17:13 18:02 WBC RBC Hgb Hct MCV MCH RDW Plt Count [place] % (Auto) Seg Neutrophils % Seg Neuts % (Manual) Lymphocytes % (Manual) Nucleated RBC % Seg Neutrophils # Man Lymphocytes # (Manual) PT INR Fibrinogen D-Dimer POC ABG pH POC ABG pCO2 POC ABG pO2 Sodium Potassium Chloride Carbon Dioxide BUN Creatinine Glucose POC Glucose 171 H Lactic Acid 9.60 H* 9.00 H* Calcium Phosphorus Magnesium AST ALT Lactate Dehydrogenase C-Reactive Protein Total Protein Albumin Lipase Vancomycin Trough Lymph Enumerat CD4/CD8 % CD4 Cells Absolute CD4 Count % CD8 Cells % CD19 Cells Absolute CD19 Count Hep Bs Antibody, Quant Hep B Core Total Ab Hepatitis Be Antigen HIV-1 RNA PCR copies/ml HIV-1 RNA (PCR) log 09/03/17 09/03/17 09/04/17 20:29 23:02 04:00 WBC RBC Hgb Hct MCV MCH RDW Plt Count [place] % (Auto) Seg Neutrophils % Seg Neuts % (Manual) Lymphocytes % (Manual) Nucleated RBC % Seg Neutrophils # Man Lymphocytes # (Manual) PT INR Fibrinogen D-Dimer POC ABG pH POC ABG pCO2 POC ABG pO2 Sodium Potassium Chloride Carbon Dioxide BUN Creatinine Glucose POC Glucose 156 H Lactic Acid 9.00 H* 3.00 H* Calcium Phosphorus Magnesium AST ALT Lactate Dehydrogenase C-Reactive Protein Total Protein Albumin Lipase Vancomycin Trough Lymph Enumerat CD4/CD8 % CD4 Cells Absolute CD4 Count % CD8 Cells % CD19 Cells Absolute CD19 Count Hep Bs Antibody, Quant Hep B Core Total Ab Hepatitis Be Antigen HIV-1 RNA PCR copies/ml HIV-1 RNA (PCR) log 09/04/17 09/04/17 09/04/17 04:00 04:00 09:00 WBC RBC 3.44 L Hgb 9.6 L Hct 29.0 L MCV MCH RDW 17.4 H Plt Count 124 L [place] % (Auto) Seg Neutrophils % Seg Neuts % (Manual) 91.0 H Lymphocytes % (Manual) 3.0 L Nucleated RBC % 2.0 H Seg Neutrophils # Man 9.9 H Lymphocytes # (Manual) 0.3 L PT 28.4 H INR 2.47 H Fibrinogen D-Dimer POC ABG pH POC ABG pCO2 POC ABG pO2 Sodium Potassium Chloride 110.1 H Carbon Dioxide BUN 29 H Creatinine Glucose 192 H POC Glucose Lactic Acid Calcium 6.8 L Phosphorus Magnesium AST 361 H ALT 315 H Lactate Dehydrogenase C-Reactive Protein Total Protein Albumin 1.6 L Lipase Vancomycin Trough Lymph Enumerat CD4/CD8 % CD4 Cells Absolute CD4 Count % CD8 Cells % CD19 Cells Absolute CD19 Count Hep Bs Antibody, Quant Hep B Core Total Ab Hepatitis Be Antigen HIV-1 RNA PCR copies/ml HIV-1 RNA (PCR) log 09/04/17 09/04/17 09/04/17 09:00 12:00 17:23 WBC RBC Hgb Hct MCV MCH RDW Plt Count [place] % (Auto) Seg Neutrophils % Seg Neuts % (Manual) Lymphocytes % (Manual) Nucleated RBC % Seg Neutrophils # Man Lymphocytes # (Manual) PT INR Fibrinogen 611 H D-Dimer POC ABG pH POC ABG pCO2 POC ABG pO2 Sodium Potassium Chloride Carbon Dioxide BUN Creatinine Glucose POC Glucose Lactic Acid 2.10 H* 3.40 H* Calcium Phosphorus Magnesium AST ALT Lactate Dehydrogenase C-Reactive Protein Total Protein Albumin Lipase Vancomycin Trough Lymph Enumerat CD4/CD8 % CD4 Cells Absolute CD4 Count % CD8 Cells % CD19 Cells Absolute CD19 Count Hep Bs Antibody, Quant Hep B Core Total Ab Hepatitis Be Antigen HIV-1 RNA PCR copies/ml HIV-1 RNA (PCR) log 09/04/17 09/04/17 09/04/17 17:23 17:47 22:30 WBC RBC Hgb Hct MCV MCH RDW Plt Count [place] % (Auto) Seg Neutrophils % Seg Neuts % (Manual) Lymphocytes % (Manual) Nucleated RBC % Seg Neutrophils # Man Lymphocytes # (Manual) PT INR Fibrinogen D-Dimer POC ABG pH POC ABG pCO2 POC ABG pO2 Sodium Potassium Chloride Carbon Dioxide BUN Creatinine Glucose POC Glucose 107 H Lactic Acid 4.70 H* Calcium Phosphorus Magnesium AST ALT Lactate Dehydrogenase C-Reactive Protein Total Protein Albumin Lipase 12 L Vancomycin Trough Lymph Enumerat CD4/CD8 % CD4 Cells Absolute CD4 Count % CD8 Cells % CD19 Cells Absolute CD19 Count Hep Bs Antibody, Quant Hep B Core Total Ab Hepatitis Be Antigen HIV-1 RNA PCR copies/ml HIV-1 RNA (PCR) log 09/04/17 09/05/17 09/05/17 23:08 05:31 06:00 WBC RBC Hgb Hct MCV MCH RDW Plt Count [place] % (Auto) Seg Neutrophils % Seg Neuts % (Manual) Lymphocytes % (Manual) Nucleated RBC % Seg Neutrophils # Man Lymphocytes # (Manual) PT INR Fibrinogen D-Dimer POC ABG pH 7.226 L POC ABG pCO2 65.4 H POC ABG pO2 61 L Sodium Potassium Chloride 112.7 H Carbon Dioxide BUN 31 H Creatinine Glucose 132 H POC Glucose 109 H Lactic Acid Calcium 7.7 L Phosphorus Magnesium AST 834 H ALT 898 H Lactate Dehydrogenase C-Reactive Protein Total Protein Albumin 1.4 L Lipase Vancomycin Trough Lymph Enumerat CD4/CD8 % CD4 Cells Absolute CD4 Count % CD8 Cells % CD19 Cells Absolute CD19 Count Hep Bs Antibody, Quant Hep B Core Total Ab Hepatitis Be Antigen HIV-1 RNA PCR copies/ml HIV-1 RNA (PCR) log 09/05/17 09/05/17 09/05/17 06:00 06:35 10:26 WBC RBC Hgb Hct MCV MCH RDW Plt Count [place] % (Auto) Seg Neutrophils % Seg Neuts % (Manual) Lymphocytes % (Manual) Nucleated RBC % Seg Neutrophils # Man Lymphocytes # (Manual) PT INR Fibrinogen D-Dimer POC ABG pH 7.311 L POC ABG pCO2 58.5 H POC ABG pO2 213 H Sodium Potassium Chloride Carbon Dioxide BUN Creatinine Glucose POC Glucose 110 H Lactic Acid 4.50 H* Calcium Phosphorus Magnesium AST ALT Lactate Dehydrogenase C-Reactive Protein Total Protein Albumin Lipase Vancomycin Trough Lymph Enumerat CD4/CD8 % CD4 Cells Absolute CD4 Count % CD8 Cells % CD19 Cells Absolute CD19 Count Hep Bs Antibody, Quant Hep B Core Total Ab Hepatitis Be Antigen HIV-1 RNA PCR copies/ml HIV-1 RNA (PCR) log 09/05/17 09/05/17 09/05/17 10:55 10:55 10:55 WBC 11.1 H RBC 3.38 L Hgb 9.3 L Hct 28.7 L MCV MCH RDW 16.7 H Plt Count 118 L [place] % (Auto) Seg Neutrophils % Seg Neuts % (Manual) 92.0 H Lymphocytes % (Manual) 4.0 L Nucleated RBC % 2.0 H Seg Neutrophils # Man 10.2 H Lymphocytes # (Manual) 0.4 L PT INR Fibrinogen D-Dimer POC ABG pH POC ABG pCO2 POC ABG pO2 Sodium Potassium Chloride Carbon Dioxide BUN Creatinine Glucose POC Glucose Lactic Acid 3.60 H* Calcium Phosphorus Magnesium AST ALT Lactate Dehydrogenase 571 H C-Reactive Protein Total Protein Albumin Lipase Vancomycin Trough Lymph Enumerat CD4/CD8 % CD4 Cells Absolute CD4 Count % CD8 Cells % CD19 Cells Absolute CD19 Count Hep Bs Antibody, Quant Hep B Core Total Ab Hepatitis Be Antigen HIV-1 RNA PCR copies/ml HIV-1 RNA (PCR) log 09/05/17 09/05/17 09/05/17 12:05 14:30 14:30 WBC RBC Hgb Hct MCV MCH RDW Plt Count [place] % (Auto) Seg Neutrophils % Seg Neuts % (Manual) Lymphocytes % (Manual) Nucleated RBC % Seg Neutrophils # Man Lymphocytes # (Manual) PT INR Fibrinogen D-Dimer POC ABG pH POC ABG pCO2 POC ABG pO2 Sodium Potassium Chloride Carbon Dioxide BUN Creatinine Glucose POC Glucose 148 H Lactic Acid Calcium Phosphorus Magnesium AST ALT Lactate Dehydrogenase C-Reactive Protein Total Protein Albumin Lipase Vancomycin Trough Lymph Enumerat CD4/CD8 0.10 L % CD4 Cells 7 L Absolute CD4 Count 101 L % CD8 Cells 66 H % CD19 Cells 4 L Absolute CD19 Count 60 L Hep Bs Antibody, Quant Hep B Core Total Ab Hepatitis Be Antigen HIV-1 RNA PCR copies/ml 1750 H HIV-1 RNA (PCR) log 3.24 H 09/05/17 09/05/17 09/05/17 16:30 17:42 19:55 WBC RBC Hgb Hct MCV MCH RDW Plt Count [place] % (Auto) Seg Neutrophils % Seg Neuts % (Manual) Lymphocytes % (Manual) Nucleated RBC % Seg Neutrophils # Man Lymphocytes # (Manual) PT INR Fibrinogen D-Dimer POC ABG pH POC ABG pCO2 POC ABG pO2 Sodium Potassium Chloride Carbon Dioxide BUN Creatinine Glucose POC Glucose 183 H Lactic Acid 3.50 H* 3.60 H* Calcium Phosphorus Magnesium AST ALT Lactate Dehydrogenase C-Reactive Protein Total Protein Albumin Lipase Vancomycin Trough Lymph Enumerat CD4/CD8 % CD4 Cells Absolute CD4 Count % CD8 Cells % CD19 Cells Absolute CD19 Count Hep Bs Antibody, Quant Hep B Core Total Ab Hepatitis Be Antigen HIV-1 RNA PCR copies/ml HIV-1 RNA (PCR) log 09/05/17 09/06/17 09/06/17 23:29 03:58 05:33 WBC RBC Hgb Hct MCV MCH RDW Plt Count [place] % (Auto) Seg Neutrophils % Seg Neuts % (Manual) Lymphocytes % (Manual) Nucleated RBC % Seg Neutrophils # Man Lymphocytes # (Manual) PT INR Fibrinogen D-Dimer POC ABG pH POC ABG pCO2 62.5 H POC ABG pO2 141 H Sodium Potassium Chloride Carbon Dioxide BUN Creatinine Glucose POC Glucose 203 H 207 H Lactic Acid Calcium Phosphorus Magnesium AST ALT Lactate Dehydrogenase C-Reactive Protein Total Protein Albumin Lipase Vancomycin Trough Lymph Enumerat CD4/CD8 % CD4 Cells Absolute CD4 Count % CD8 Cells % CD19 Cells Absolute CD19 Count Hep Bs Antibody, Quant Hep B Core Total Ab Hepatitis Be Antigen HIV-1 RNA PCR copies/ml HIV-1 RNA (PCR) log 09/06/17 09/06/17 09/06/17 06:15 06:15 06:15 WBC RBC 3.26 L Hgb 9.0 L Hct 27.5 L MCV MCH RDW 16.7 H Plt Count 104 L [place] % (Auto) Seg Neutrophils % Seg Neuts % (Manual) 97.0 H Lymphocytes % (Manual) 2.0 L Nucleated RBC % Seg Neutrophils # Man 8.1 H Lymphocytes # (Manual) 0.2 L PT INR Fibrinogen D-Dimer POC ABG pH POC ABG pCO2 POC ABG pO2 Sodium 150 H Potassium Chloride 110.9 H Carbon Dioxide 31 H BUN 34 H Creatinine Glucose 207 H POC Glucose Lactic Acid 2.90 H* Calcium 8.2 L Phosphorus Magnesium AST 346 H ALT 634 H Lactate Dehydrogenase C-Reactive Protein Total Protein Albumin 1.5 L Lipase Vancomycin Trough Lymph Enumerat CD4/CD8 % CD4 Cells Absolute CD4 Count % CD8 Cells % CD19 Cells Absolute CD19 Count Hep Bs Antibody, Quant Hep B Core Total Ab Hepatitis Be Antigen HIV-1 RNA PCR copies/ml HIV-1 RNA (PCR) log 09/06/17 09/06/17 09/06/17 08:03 11:32 18:04 WBC RBC Hgb Hct MCV MCH RDW Plt Count [place] % (Auto) Seg Neutrophils % Seg Neuts % (Manual) Lymphocytes % (Manual) Nucleated RBC % Seg Neutrophils # Man Lymphocytes # (Manual) PT INR Fibrinogen D-Dimer POC ABG pH POC ABG pCO2 POC ABG pO2 Sodium Potassium Chloride Carbon Dioxide BUN Creatinine Glucose POC Glucose 169 H 130 H Lactic Acid 2.90 H* Calcium Phosphorus Magnesium AST ALT Lactate Dehydrogenase C-Reactive Protein Total Protein Albumin Lipase Vancomycin Trough Lymph Enumerat CD4/CD8 % CD4 Cells Absolute CD4 Count % CD8 Cells % CD19 Cells Absolute CD19 Count Hep Bs Antibody, Quant Hep B Core Total Ab Hepatitis Be Antigen HIV-1 RNA PCR copies/ml HIV-1 RNA (PCR) log 09/07/17 09/07/17 09/07/17 00:03 04:13 04:13 WBC RBC Hgb Hct MCV MCH RDW Plt Count [place] % (Auto) Seg Neutrophils % Seg Neuts % (Manual) Lymphocytes % (Manual) Nucleated RBC % Seg Neutrophils # Man Lymphocytes # (Manual) PT INR Fibrinogen D-Dimer POC ABG pH POC ABG pCO2 POC ABG pO2 Sodium 152 H Potassium 3.5 L Chloride 114.9 H Carbon Dioxide 34 H BUN 35 H Creatinine Glucose 149 H POC Glucose 123 H Lactic Acid Calcium Phosphorus Magnesium AST 150 H ALT 381 H Lactate Dehydrogenase C-Reactive Protein Total Protein Albumin 1.3 L Lipase Vancomycin Trough Lymph Enumerat CD4/CD8 % CD4 Cells Absolute CD4 Count % CD8 Cells % CD19 Cells Absolute CD19 Count Hep Bs Antibody, Quant Hep B Core Total Ab Reactive H Hepatitis Be Antigen HIV-1 RNA PCR copies/ml HIV-1 RNA (PCR) log 09/07/17 09/07/17 09/07/17 04:13 04:13 04:33 WBC RBC Hgb Hct MCV MCH RDW Plt Count [place] % (Auto) Seg Neutrophils % Seg Neuts % (Manual) Lymphocytes % (Manual) Nucleated RBC % Seg Neutrophils # Man Lymphocytes # (Manual) PT INR Fibrinogen D-Dimer POC ABG pH 7.590 H POC ABG pCO2 POC ABG pO2 179 H Sodium Potassium Chloride Carbon Dioxide BUN Creatinine Glucose POC Glucose Lactic Acid Calcium Phosphorus Magnesium AST ALT Lactate Dehydrogenase C-Reactive Protein Total Protein Albumin Lipase Vancomycin Trough Lymph Enumerat CD4/CD8 % CD4 Cells Absolute CD4 Count % CD8 Cells % CD19 Cells Absolute CD19 Count Hep Bs Antibody, Quant <5 L Hep B Core Total Ab Hepatitis Be Antigen Reactive H HIV-1 RNA PCR copies/ml HIV-1 RNA (PCR) log 09/07/17 09/07/17 09/07/17 05:05 08:20 11:34 WBC 11.9 H RBC 3.11 L Hgb 8.4 L Hct 26.0 L MCV MCH 27 L RDW 16.2 H Plt Count 109 L [place] % (Auto) Seg Neutrophils % Seg Neuts % (Manual) 93.0 H Lymphocytes % (Manual) 1.0 L Nucleated RBC % Seg Neutrophils # Man 11.1 H Lymphocytes # (Manual) 0.1 L PT INR Fibrinogen D-Dimer POC ABG pH POC ABG pCO2 POC ABG pO2 Sodium Potassium Chloride Carbon Dioxide BUN Creatinine Glucose POC Glucose 168 H 156 H Lactic Acid Calcium Phosphorus Magnesium AST ALT Lactate Dehydrogenase C-Reactive Protein Total Protein Albumin Lipase Vancomycin Trough Lymph Enumerat CD4/CD8 % CD4 Cells Absolute CD4 Count % CD8 Cells % CD19 Cells Absolute CD19 Count Hep Bs Antibody, Quant Hep B Core Total Ab Hepatitis Be Antigen HIV-1 RNA PCR copies/ml HIV-1 RNA (PCR) log 09/07/17 09/07/17 09/07/17 18:13 20:14 20:14 WBC 14.6 H RBC 3.36 L Hgb 9.2 L Hct 28.3 L MCV MCH 27 L RDW 16.1 H Plt Count 120 L [place] % (Auto) Seg Neutrophils % Seg Neuts % (Manual) 93.0 H Lymphocytes % (Manual) 2.0 L Nucleated RBC % Seg Neutrophils # Man 13.6 H Lymphocytes # (Manual) 0.3 L PT INR Fibrinogen D-Dimer POC ABG pH POC ABG pCO2 POC ABG pO2 Sodium 154 H Potassium 3.4 L Chloride 114.7 H Carbon Dioxide 34 H BUN 37 H Creatinine Glucose 131 H POC Glucose 136 H Lactic Acid Calcium Phosphorus Magnesium AST ALT Lactate Dehydrogenase C-Reactive Protein Total Protein Albumin Lipase Vancomycin Trough Lymph Enumerat CD4/CD8 % CD4 Cells Absolute CD4 Count % CD8 Cells % CD19 Cells Absolute CD19 Count Hep Bs Antibody, Quant Hep B Core Total Ab Hepatitis Be Antigen HIV-1 RNA PCR copies/ml HIV-1 RNA (PCR) log 09/08/17 09/08/17 09/08/17 05:15 05:30 05:30 WBC 13.6 H RBC 3.29 L Hgb 9.1 L Hct 27.4 L MCV 83 L MCH RDW 15.8 H Plt Count 111 L [place] % (Auto) Seg Neutrophils % Seg Neuts % (Manual) 94.0 H Lymphocytes % (Manual) 4.0 L Nucleated RBC % 1.0 H Seg Neutrophils # Man 12.8 H Lymphocytes # (Manual) 0.5 L PT INR Fibrinogen D-Dimer POC ABG pH 7.460 H POC ABG pCO2 54.7 H POC ABG pO2 209 H Sodium Potassium Chloride Carbon Dioxide BUN Creatinine Glucose POC Glucose Lactic Acid Calcium Phosphorus Magnesium AST ALT Lactate Dehydrogenase C-Reactive Protein 8.70 H Total Protein Albumin Lipase Vancomycin Trough Lymph Enumerat CD4/CD8 % CD4 Cells Absolute CD4 Count % CD8 Cells % CD19 Cells Absolute CD19 Count Hep Bs Antibody, Quant Hep B Core Total Ab Hepatitis Be Antigen HIV-1 RNA PCR copies/ml HIV-1 RNA (PCR) log 09/08/17 09/08/17 09/08/17 05:30 12:24 17:19 WBC RBC Hgb Hct MCV MCH RDW Plt Count [place] % (Auto) Seg Neutrophils % Seg Neuts % (Manual) Lymphocytes % (Manual) Nucleated RBC % Seg Neutrophils # Man Lymphocytes # (Manual) PT INR Fibrinogen D-Dimer POC ABG pH POC ABG pCO2 POC ABG pO2 Sodium 154 H Potassium Chloride 114.3 H Carbon Dioxide 36 H BUN 39 H Creatinine Glucose 163 H POC Glucose 181 H 170 H Lactic Acid Calcium Phosphorus Magnesium AST ALT Lactate Dehydrogenase C-Reactive Protein Total Protein Albumin Lipase Vancomycin Trough Lymph Enumerat CD4/CD8 % CD4 Cells Absolute CD4 Count % CD8 Cells % CD19 Cells Absolute CD19 Count Hep Bs Antibody, Quant Hep B Core Total Ab Hepatitis Be Antigen HIV-1 RNA PCR copies/ml HIV-1 RNA (PCR) log 09/08/17 09/09/17 09/09/17 23:51 04:00 04:00 WBC 20.1 H RBC 3.37 L Hgb 9.2 L Hct 28.0 L MCV 83 L MCH 27 L RDW 15.7 H Plt Count 123 L [place] % (Auto) Seg Neutrophils % Seg Neuts % (Manual) 86.0 H Lymphocytes % (Manual) 9.0 L Nucleated RBC % Seg Neutrophils # Man 17.3 H Lymphocytes # (Manual) PT INR Fibrinogen D-Dimer POC ABG pH POC ABG pCO2 POC ABG pO2 Sodium 150 H Potassium 3.0 L Chloride 107.7 H Carbon Dioxide 35 H BUN 39 H Creatinine Glucose 174 H POC Glucose 185 H Lactic Acid Calcium Phosphorus Magnesium AST ALT Lactate Dehydrogenase C-Reactive Protein Total Protein Albumin Lipase Vancomycin Trough Lymph Enumerat CD4/CD8 % CD4 Cells Absolute CD4 Count % CD8 Cells % CD19 Cells Absolute CD19 Count Hep Bs Antibody, Quant Hep B Core Total Ab Hepatitis Be Antigen HIV-1 RNA PCR copies/ml HIV-1 RNA (PCR) log 09/09/17 09/09/17 09/09/17 04:34 05:57 12:04 WBC RBC Hgb Hct MCV MCH RDW Plt Count [place] % (Auto) Seg Neutrophils % Seg Neuts % (Manual) Lymphocytes % (Manual) Nucleated RBC % Seg Neutrophils # Man Lymphocytes # (Manual) PT INR Fibrinogen D-Dimer POC ABG pH 7.575 H POC ABG pCO2 POC ABG pO2 63 L Sodium Potassium Chloride Carbon Dioxide BUN Creatinine Glucose POC Glucose 170 H 126 H Lactic Acid Calcium Phosphorus Magnesium AST ALT Lactate Dehydrogenase C-Reactive Protein Total Protein Albumin Lipase Vancomycin Trough Lymph Enumerat CD4/CD8 % CD4 Cells Absolute CD4 Count % CD8 Cells % CD19 Cells Absolute CD19 Count Hep Bs Antibody, Quant Hep B Core Total Ab Hepatitis Be Antigen HIV-1 RNA PCR copies/ml HIV-1 RNA (PCR) log 09/09/17 09/10/17 09/10/17 17:31 00:02 03:46 WBC RBC Hgb Hct MCV MCH RDW Plt Count [place] % (Auto) Seg Neutrophils % Seg Neuts % (Manual) Lymphocytes % (Manual) Nucleated RBC % Seg Neutrophils # Man Lymphocytes # (Manual) PT INR Fibrinogen D-Dimer POC ABG pH 7.529 H POC ABG pCO2 45.6 H POC ABG pO2 69 L Sodium Potassium Chloride Carbon Dioxide BUN Creatinine Glucose POC Glucose 180 H 190 H Lactic Acid Calcium Phosphorus Magnesium AST ALT Lactate Dehydrogenase C-Reactive Protein Total Protein Albumin Lipase Vancomycin Trough Lymph Enumerat CD4/CD8 % CD4 Cells Absolute CD4 Count % CD8 Cells % CD19 Cells Absolute CD19 Count Hep Bs Antibody, Quant Hep B Core Total Ab Hepatitis Be Antigen HIV-1 RNA PCR copies/ml HIV-1 RNA (PCR) log 09/10/17 09/10/17 09/10/17 04:44 04:50 06:19 WBC 21.7 H RBC 3.32 L Hgb 9.2 L Hct 28.0 L MCV MCH RDW 15.3 H Plt Count [place] % (Auto) Seg Neutrophils % Seg Neuts % (Manual) 96.0 H Lymphocytes % (Manual) 4.0 L Nucleated RBC % Seg Neutrophils # Man 20.8 H Lymphocytes # (Manual) 0.9 L PT INR Fibrinogen D-Dimer POC ABG pH POC ABG pCO2 POC ABG pO2 Sodium 149 H Potassium Chloride 109.8 H Carbon Dioxide 36 H BUN 34 H Creatinine 0.7 L Glucose 139 H POC Glucose 154 H Lactic Acid Calcium Phosphorus Magnesium AST ALT Lactate Dehydrogenase C-Reactive Protein Total Protein Albumin Lipase Vancomycin Trough Lymph Enumerat CD4/CD8 % CD4 Cells Absolute CD4 Count % CD8 Cells % CD19 Cells Absolute CD19 Count Hep Bs Antibody, Quant Hep B Core Total Ab Hepatitis Be Antigen HIV-1 RNA PCR copies/ml HIV-1 RNA (PCR) log 09/10/17 09/10/17 09/10/17 11:58 17:15 23:24 WBC RBC Hgb Hct MCV MCH RDW Plt Count [place] % (Auto) Seg Neutrophils % Seg Neuts % (Manual) Lymphocytes % (Manual) Nucleated RBC % Seg Neutrophils # Man Lymphocytes # (Manual) PT INR Fibrinogen D-Dimer POC ABG pH POC ABG pCO2 POC ABG pO2 Sodium Potassium Chloride Carbon Dioxide BUN Creatinine Glucose POC Glucose 204 H 193 H 177 H Lactic Acid Calcium Phosphorus Magnesium AST ALT Lactate Dehydrogenase C-Reactive Protein Total Protein Albumin Lipase Vancomycin Trough Lymph Enumerat CD4/CD8 % CD4 Cells Absolute CD4 Count % CD8 Cells % CD19 Cells Absolute CD19 Count Hep Bs Antibody, Quant Hep B Core Total Ab Hepatitis Be Antigen HIV-1 RNA PCR copies/ml HIV-1 RNA (PCR) log 09/11/17 09/11/17 09/11/17 04:03 05:39 06:00 WBC 15.9 H RBC 2.93 L Hgb 7.9 L Hct 24.9 L MCV MCH 27 L RDW 15.6 H Plt Count [place] % (Auto) Seg Neutrophils % Seg Neuts % (Manual) 99.0 H Lymphocytes % (Manual) 0 L Nucleated RBC % Seg Neutrophils # Man 15.7 H Lymphocytes # (Manual) 0.0 L PT INR Fibrinogen D-Dimer POC ABG pH 7.572 H POC ABG pCO2 POC ABG pO2 113 H Sodium Potassium Chloride Carbon Dioxide BUN Creatinine Glucose POC Glucose 144 H Lactic Acid Calcium Phosphorus Magnesium AST ALT Lactate Dehydrogenase C-Reactive Protein Total Protein Albumin Lipase Vancomycin Trough Lymph Enumerat CD4/CD8 % CD4 Cells Absolute CD4 Count % CD8 Cells % CD19 Cells Absolute CD19 Count Hep Bs Antibody, Quant Hep B Core Total Ab Hepatitis Be Antigen HIV-1 RNA PCR copies/ml HIV-1 RNA (PCR) log 09/11/17 09/11/17 09/11/17 06:00 11:48 18:01 WBC RBC Hgb Hct MCV MCH RDW Plt Count [place] % (Auto) Seg Neutrophils % Seg Neuts % (Manual) Lymphocytes % (Manual) Nucleated RBC % Seg Neutrophils # Man Lymphocytes # (Manual) PT INR Fibrinogen D-Dimer POC ABG pH POC ABG pCO2 POC ABG pO2 Sodium Potassium Chloride 108.1 H Carbon Dioxide BUN 30 H Creatinine 0.6 L Glucose 132 H POC Glucose 179 H 135 H Lactic Acid Calcium 7.4 L D Phosphorus Magnesium AST ALT Lactate Dehydrogenase C-Reactive Protein Total Protein Albumin Lipase Vancomycin Trough Lymph Enumerat CD4/CD8 % CD4 Cells Absolute CD4 Count % CD8 Cells % CD19 Cells Absolute CD19 Count Hep Bs Antibody, Quant Hep B Core Total Ab Hepatitis Be Antigen HIV-1 RNA PCR copies/ml HIV-1 RNA (PCR) log 09/12/17 09/12/17 09/12/17 00:22 04:24 06:41 WBC RBC Hgb Hct MCV MCH RDW Plt Count [place] % (Auto) Seg Neutrophils % Seg Neuts % (Manual) Lymphocytes % (Manual) Nucleated RBC % Seg Neutrophils # Man Lymphocytes # (Manual) PT INR Fibrinogen D-Dimer POC ABG pH POC ABG pCO2 53.5 H POC ABG pO2 79 L Sodium Potassium Chloride Carbon Dioxide BUN Creatinine Glucose POC Glucose 164 H 202 H Lactic Acid Calcium Phosphorus Magnesium AST ALT Lactate Dehydrogenase C-Reactive Protein Total Protein Albumin Lipase Vancomycin Trough Lymph Enumerat CD4/CD8 % CD4 Cells Absolute CD4 Count % CD8 Cells % CD19 Cells Absolute CD19 Count Hep Bs Antibody, Quant Hep B Core Total Ab Hepatitis Be Antigen HIV-1 RNA PCR copies/ml HIV-1 RNA (PCR) log 09/12/17 09/12/17 09/12/17 12:17 17:28 21:44 WBC RBC Hgb Hct MCV MCH RDW Plt Count [place] % (Auto) Seg Neutrophils % Seg Neuts % (Manual) Lymphocytes % (Manual) Nucleated RBC % Seg Neutrophils # Man Lymphocytes # (Manual) PT INR Fibrinogen D-Dimer POC ABG pH POC ABG pCO2 POC ABG pO2 Sodium Potassium Chloride Carbon Dioxide BUN Creatinine Glucose POC Glucose 157 H 189 H Lactic Acid Calcium Phosphorus Magnesium AST ALT Lactate Dehydrogenase C-Reactive Protein 1.60 H Total Protein Albumin Lipase Vancomycin Trough Lymph Enumerat CD4/CD8 % CD4 Cells Absolute CD4 Count % CD8 Cells % CD19 Cells Absolute CD19 Count Hep Bs Antibody, Quant Hep B Core Total Ab Hepatitis Be Antigen HIV-1 RNA PCR copies/ml HIV-1 RNA (PCR) log 09/13/17 09/13/17 09/13/17 00:16 03:56 05:47 WBC RBC Hgb Hct MCV MCH RDW Plt Count [place] % (Auto) Seg Neutrophils % Seg Neuts % (Manual) Lymphocytes % (Manual) Nucleated RBC % Seg Neutrophils # Man Lymphocytes # (Manual) PT INR Fibrinogen D-Dimer POC ABG pH 7.457 H POC ABG pCO2 49.9 H POC ABG pO2 Sodium Potassium Chloride Carbon Dioxide BUN Creatinine Glucose POC Glucose 164 H 190 H Lactic Acid Calcium Phosphorus Magnesium AST ALT Lactate Dehydrogenase C-Reactive Protein Total Protein Albumin Lipase Vancomycin Trough Lymph Enumerat CD4/CD8 % CD4 Cells Absolute CD4 Count % CD8 Cells % CD19 Cells Absolute CD19 Count Hep Bs Antibody, Quant Hep B Core Total Ab Hepatitis Be Antigen HIV-1 RNA PCR copies/ml HIV-1 RNA (PCR) log 09/13/17 09/13/17 09/13/17 09:24 11:48 17:26 WBC RBC Hgb Hct MCV MCH RDW Plt Count [place] % (Auto) Seg Neutrophils % Seg Neuts % (Manual) Lymphocytes % (Manual) Nucleated RBC % Seg Neutrophils # Man Lymphocytes # (Manual) PT INR Fibrinogen D-Dimer POC ABG pH POC ABG pCO2 POC ABG pO2 Sodium Potassium Chloride Carbon Dioxide 31 H BUN 33 H Creatinine 0.6 L Glucose 177 H POC Glucose 196 H 163 H Lactic Acid Calcium Phosphorus Magnesium AST ALT Lactate Dehydrogenase C-Reactive Protein Total Protein Albumin Lipase Vancomycin Trough Lymph Enumerat CD4/CD8 % CD4 Cells Absolute CD4 Count % CD8 Cells % CD19 Cells Absolute CD19 Count Hep Bs Antibody, Quant Hep B Core Total Ab Hepatitis Be Antigen HIV-1 RNA PCR copies/ml HIV-1 RNA (PCR) log 09/13/17 09/14/17 09/14/17 23:59 05:33 06:14 WBC RBC Hgb Hct MCV MCH RDW Plt Count [place] % (Auto) Seg Neutrophils % Seg Neuts % (Manual) Lymphocytes % (Manual) Nucleated RBC % Seg Neutrophils # Man Lymphocytes # (Manual) PT INR Fibrinogen D-Dimer POC ABG pH POC ABG pCO2 52.0 H POC ABG pO2 Sodium Potassium Chloride Carbon Dioxide BUN Creatinine Glucose POC Glucose 162 H 136 H Lactic Acid Calcium Phosphorus Magnesium AST ALT Lactate Dehydrogenase C-Reactive Protein Total Protein Albumin Lipase Vancomycin Trough Lymph Enumerat CD4/CD8 % CD4 Cells Absolute CD4 Count % CD8 Cells % CD19 Cells Absolute CD19 Count Hep Bs Antibody, Quant Hep B Core Total Ab Hepatitis Be Antigen HIV-1 RNA PCR copies/ml HIV-1 RNA (PCR) log 09/14/17 09/14/17 09/14/17 12:00 12:15 18:08 WBC RBC Hgb Hct MCV MCH RDW Plt Count [place] % (Auto) Seg Neutrophils % Seg Neuts % (Manual) Lymphocytes % (Manual) Nucleated RBC % Seg Neutrophils # Man Lymphocytes # (Manual) PT INR Fibrinogen D-Dimer POC ABG pH POC ABG pCO2 POC ABG pO2 Sodium Potassium Chloride Carbon Dioxide BUN Creatinine Glucose POC Glucose 154 H 152 H Lactic Acid Calcium Phosphorus Magnesium AST ALT Lactate Dehydrogenase C-Reactive Protein Total Protein Albumin Lipase Vancomycin Trough 22.0 H Lymph Enumerat CD4/CD8 % CD4 Cells Absolute CD4 Count % CD8 Cells % CD19 Cells Absolute CD19 Count Hep Bs Antibody, Quant Hep B Core Total Ab Hepatitis Be Antigen HIV-1 RNA PCR copies/ml HIV-1 RNA (PCR) log 09/14/17 23:38 WBC RBC Hgb Hct MCV MCH RDW Plt Count [place] % (Auto) Seg Neutrophils % Seg Neuts % (Manual) Lymphocytes % (Manual) Nucleated RBC % Seg Neutrophils # Man Lymphocytes # (Manual) PT INR Fibrinogen D-Dimer POC ABG pH POC ABG pCO2 POC ABG pO2 Sodium Potassium Chloride Carbon Dioxide BUN Creatinine Glucose POC Glucose 110 H Lactic Acid Calcium Phosphorus Magnesium AST ALT Lactate Dehydrogenase C-Reactive Protein Total Protein Albumin Lipase Vancomycin Trough Lymph Enumerat CD4/CD8 % CD4 Cells Absolute CD4 Count % CD8 Cells % CD19 Cells Absolute CD19 Count Hep Bs Antibody, Quant Hep B Core Total Ab Hepatitis Be Antigen HIV-1 RNA PCR copies/ml HIV-1 RNA (PCR) log
[2017-09-15 10:38] LABS: Hematocrit 31.1 % (35.5-45.6); Hemoglobin 10.3 gm/dl (11.8-15.2); Mean Corpuscular HGB Conc 33 % (32-34); Mean Corpuscular Hemoglobin 28 pg (28-32); Mean Corpuscular Volume 86 fl (84-94); Platelet Count 231 K/mm3 (140-440); Red Blood Count 3.64 M/mm3 (3.65-5.03); Red Cell Distribution Width 15.8 % (13.2-15.2)
[2017-09-15] MEDS: BACTRIM DS PO SCH (10:57)
[2017-09-15 10:58] LABS: Alanine Aminotransferase 134 units/L (7-56); Albumin 2.1 g/dL (3.9-5); BUN/Creatinine Ratio 43; Blood Urea Nitrogen 26 mg/dL (9-20); Calcium 9.3 mg/dL (8.4-10.2); Hemolysis Index 7
[2017-09-15] MEDS: LOVENOX SUB-Q SCH (10:58)
[2017-09-15] MEDS: PEPCID PO SCH ×2 (10:58→23:02)
[2017-09-15] MEDS: LASIX IV SCH (10:59)
--- NOTE | 2017-09-15 11:09 | Progress Note ---
Assessment and Plan Assessment: 1) Severe Sepsis with septic shock versus card shock / third spacing: off pressors, unclear etiology ?pneumonia with effusion. Initial Etiology most likely E coli septicemia and pneumonia. -CRP 22. --> 1.6 -Lactic acid better as of 09/06. 2) E. coli septicemia: unknown source ? Pneumonia ? UTI (UCx negative) ? GI -Blood cultures 09/01 positive 4 of 4 bottles. E coli sens to cefepime/zosyn -Repeat Blood cultures 09/04 negative. -TTE 09/02 no vegetations. 3) Bilateral pneumonia: recently treated at [facility]. -Tracheal asp with normal fiordaliza. - CT chest 09/02 with extensive bilateral pulmonary opacities due to edema vs PNA. Also component of atelectasis. Bilateral pleural effusions. - Legionella and Strep pneumo ag in urine negative - On bactrim and steroids since 09/05. -PJP DFA negative -repeat CT patchy infiltrate in RUL and large right effusion/mod left effusion 4) Acute respiratory failure. Intubated. From pneumonia +/- CHF 5) HIV/AIDS, poorly compliant with HAART for past > 1 year per [facility]; last CD4 per [facility] was 133. [id number] on 08/26/17 -RPR neg -fungal blood cx neg 6) Abnormal CT A/P with numerous liver lesions suspicious for metastatic liver disease, moderate ascites, possible partial vein thrombosis. 7) Encephalopathy. 8) Transaminitis. Improved. ?hep B. ?cirrhosis -Hep B Surface ag positive, HBVe antigen positive, HBV core total ab positive -Hep C negative -CT + Ascitis -US + ? portal venous thrombosis, multiple liver lesions 9) Acute Thrombocytopenia. Improved. 10) Low EF Plan: -GI med consult for elevated LFTs and abnormal liver US ? HBV with cirrhosis ? malignancy -stop cefepime day 10 of 10 -continue vancomycin - day 4 of 5 -continue bactrim DS 1 tab qday for prophylaxis -continue azithromycin 1200 mg qweek for prophylaxis -Will f/u genotype, HLA [id number], quantiferon, hep B viral load - all pending -Will f/u AFB blood cultures - pending -hopefully will be extubated today I will be covering this weekend Eduarda Rolon MD Infectious Diseases Specialist [facility] ([facility] M [phone] O [phone] Subjective Date of service: 09/15/17 Principal diagnosis: Septic shock, acute hypoxemic respiratory failure, [place] Interval history: Remains intubated. Afebrile. Off pressors Microbiology: Blood cultures: 09/01 E coli x 4 bottles 09/04 Neg 09/06 ngtd Fungal blood culture: 09/06 pending Urine cultures: 09/02 Neg Respiratory cultures: TA 09/02 normal fiordaliza Crypto ag in serum negative Current Antimicrobials: Cefepime 09/12 Vanco 09/12 Bactrim 09/05- Azithromycin 09/06- Solumedrol 09/05- Previous Antimicrobials: Zosyn 09/02 Azithro 09/02 Meropenem 09/02- Fluconazole 09/03- Objective - Exam Narrative Exam: General appearance: sedated on the vent alert anxious eye open Eyes: anicteric sclerae, moist conjunctivae HENT: Atraumatic; oropharynx + ETT, + NGT Neck: Trachea midline; supple, no thyromegaly or lymphadenopathy Lungs: lila rhonchi CV: RRR, no murmurs Abdomen: distended tense +BS Extremities: lila arm edema Skin: Normal temperature, turgor and texture; no rash, ulcers or subcutaneous nodules Psych: sedated. Neuro: sedated Lines: right IJ TLC / Quach clear urine - Constitutional Vitals: Vital Signs Temp Pulse Resp BP Pulse Ox 99.1 F 112 H 29 H 101/63 99 09/15/17 08:00 09/15/17 10:00 09/15/17 10:00 09/15/17 10:00 09/15/17 10:00 Temperature -Last 24 Hours Temperature 99.1 F Temperature 98.6 F Temperature 98.8 F Temperature 97.8 F Temperature 99.0 F Temperature 98.6 F - Labs CBC & Chem 7: 09/15/17 09:50 09/15/17 09:50 Labs: Abnormal lab results 09/14/17 09/14/17 09/14/17 Range/Units 12:00 12:15 18:08 RBC (3.65-5.03) M/mm3 Hgb (11.8-15.2) gm/dl Hct (35.5-45.6) % RDW (13.2-15.2) % BUN (9-20) mg/dL Creatinine (0.8-1.5) mg/dL POC Glucose 154 H 152 H (70-105) AST (5-40) units/L ALT (7-56) units/L NT-Pro-B Natriuret Pep (0-900) pg/mL Albumin (3.9-5) g/dL Vancomycin Trough 22.0 H (5.0-20.0) ug/mL 09/14/17 09/15/17 09/15/17 Range/Units 23:38 09:50 09:50 RBC 3.64 L (3.65-5.03) M/mm3 Hgb 10.3 L (11.8-15.2) gm/dl Hct 31.1 L (35.5-45.6) % RDW 15.8 H (13.2-15.2) % BUN 26 H (9-20) mg/dL Creatinine 0.6 L (0.8-1.5) mg/dL POC Glucose 110 H (70-105) AST 79 H (5-40) units/L ALT 134 H (7-56) units/L NT-Pro-B Natriuret Pep (0-900) pg/mL Albumin 2.1 L (3.9-5) g/dL Vancomycin Trough (5.0-20.0) ug/mL 09/15/17 Range/Units 09:50 RBC (3.65-5.03) M/mm3 Hgb (11.8-15.2) gm/dl Hct (35.5-45.6) % RDW (13.2-15.2) % BUN (9-20) mg/dL Creatinine (0.8-1.5) mg/dL POC Glucose (70-105) AST (5-40) units/L ALT (7-56) units/L NT-Pro-B Natriuret Pep 4222 H (0-900) pg/mL Albumin (3.9-5) g/dL Vancomycin Trough (5.0-20.0) ug/mL
[2017-09-15] MEDS: VANCOMYCIN 1,250 MG in NACL 0.9% 250ML 250 ML IV SCH ×2 (11:21→22:00)
--- NOTE | 2017-09-15 16:33 | Progress Note ---
Assessment and Plan Assessment and plan: 52-year-old male presents to the emergency department with complaint of shortness of breath and some midsternal right-sided chest discomfort with inspiration that started earlier this afternoon and radiates towards the back. The patient was just discharged from the [facility] a few days ago after treated for bilateral pneumonia. He is on Bactrim and just finished a course of antifungal medication for oral thrush. He does not smoke or use illicit drugs. His physicians are through the [facility]. Patient was recently discharged from a 6 day hospital stay at the [facility]. He denies any leg swelling, nausea, vomiting or fever. Septic shock due to underlying pneumonia Pneumonia bacteria - Ramón neg rods, Gram Negative bacteremia Patient is on Bactrim and azithromycin for prophylaxis Acute hypoxemic respiratory failure intubated 09/01/17, on MV >96 hours Hyperkalemia - corrected Anemia of chronic disease Hypernatremia multiple liver masses suspicious for metastatic disease Portal vein thrombosis? 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 The aggregate critical care time was [34] minutes. This time is in addition to time spent performing reported procedures but includes the following: [x] Data Review and interpretation [x] Patient assessment and monitoring of vital signs [x] Documentation [x] Medication orders and management History Interval history: Was seen and evaluated this morning, patient is intubated and on mechanical ventilation. patient was alert and respond to commands. Hospitalist Physical - Physical exam Narrative exam: Patient is intubated and on mechanical ventilation. The patient apperaed emaciated Vital signs as documented. Head exam is unremarkable. No scleral icterus . Neck is without jugular venous distension, thyromegaly, or carotid bruits. Lungs are clear to auscultation. Cardiac exam reveals regular rate and Rhythm. First and second heart sounds normal. No murmurs, rubs or gallops. Abdominal exam reveals normal bowel sounds, no masses, no organomegaly and no aortic enlargement. Extremities are nonedematous and both femoral and pedal pulses are normal. 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 - Constitutional Vitals: Temp Pulse Resp BP Pulse Ox 98.4 F 120 H 34 H 108/75 99 09/15/17 15:59 09/15/17 13:15 09/15/17 12:56 09/15/17 13:15 09/15/17 13:55 General appearance: Present: no acute distress, well-nourished, other (intubated ) Results - Labs CBC & Chem 7: 09/15/17 09:50 09/15/17 09:50 Labs: Laboratory Last Values WBC 10.8 K/mm3 (4.5-11.0) 09/15/17 09:50 RBC 3.64 M/mm3 (3.65-5.03) L 09/15/17 09:50 Hgb 10.3 gm/dl (11.8-15.2) L 09/15/17 09:50 Hct 31.1 % (35.5-45.6) L 09/15/17 09:50 MCV 86 fl (84-94) 09/15/17 09:50 MCH 28 pg (28-32) 09/15/17 09:50 MCHC 33 % (32-34) 09/15/17 09:50 RDW 15.8 % (13.2-15.2) H 09/15/17 09:50 Plt Count 231 K/mm3 (140-440) 09/15/17 09:50 Mckean % (Auto) 12.6 % (0.0-7.3) H 09/02/17 07:36 Eos % (Auto) 0.3 % (0.0-4.3) 09/02/17 07:36 Mckean # 0.4 K/mm3 (0.0-0.8) 09/02/17 07:36 Eos # 0.0 K/mm3 (0.0-0.4) 09/02/17 07:36 Baso # 0.0 K/mm3 (0.0-0.1) 09/02/17 07:36 Add Manual Diff Complete 09/11/17 06:00 Total Counted 100 09/11/17 06:00 Seg Neutrophils % Crown Attacher 09/11/17 06:00 Seg Neuts % (Manual) 99.0 % (40.0-70.0) H 09/11/17 06:00 Band Neutrophils % 0 % 09/11/17 06:00 Lymphocytes % (Manual) 0 % (13.4-35.0) L 09/11/17 06:00 Reactive Lymphs % (Man) 0 % 09/11/17 06:00 Monocytes % (Manual) 1.0 % (0.0-7.3) 09/11/17 06:00 Eosinophils % (Manual) 0 % (0.0-4.3) 09/11/17 06:00 Basophils % (Manual) 0 % (0.0-1.8) 09/11/17 06:00 Metamyelocytes % 0 % 09/11/17 06:00 Myelocytes % 0 % 09/11/17 06:00 Promyelocytes % 0 % 09/11/17 06:00 Blast Cells % 0 % 09/11/17 06:00 Nucleated RBC % Not Reportable 09/11/17 06:00 Seg Neutrophils # 2.1 K/mm3 (1.8-7.7) 09/02/17 07:36 Seg Neutrophils # Man 15.7 K/mm3 (1.8-7.7) H 09/11/17 06:00 Band Neutrophils # 0.0 K/mm3 09/11/17 06:00 Abs Lymphs (Manual) 1470 cells/uL (850-3900) 09/05/17 14:30 Lymphocytes # (Manual) 0.0 K/mm3 (1.2-5.4) L 09/11/17 06:00 Abs React Lymphs (Man) 0.0 K/mm3 09/11/17 06:00 Monocytes # (Manual) 0.2 K/mm3 (0.0-0.8) 09/11/17 06:00 Eosinophils # (Manual) 0.0 K/mm3 (0.0-0.4) 09/11/17 06:00 Basophils # (Manual) 0.0 K/mm3 (0.0-0.1) 09/11/17 06:00 Metamyelocytes # 0.0 K/mm3 09/11/17 06:00 Myelocytes # 0.0 K/mm3 09/11/17 06:00 Promyelocytes # 0.0 K/mm3 09/11/17 06:00 Blast Cells # 0.0 K/mm3 09/11/17 06:00 WBC Morphology Not Reportable 09/11/17 06:00 Hypersegmented Neuts Not Reportable 09/11/17 06:00 Hyposegmented Neuts Not Reportable 09/11/17 06:00 Hypogranular Neuts Not Reportable 09/11/17 06:00 Smudge Cells Not Reportable 09/11/17 06:00 Toxic Granulation Not Reportable 09/11/17 06:00 Toxic Vacuolation Not Reportable 09/11/17 06:00 Dohle Bodies Not Reportable 09/11/17 06:00 Pelger-Huet Anomaly Not Reportable 09/11/17 06:00 Efren Rods Not Reportable 09/11/17 06:00 Platelet Estimate Cons 09/11/17 06:00 Clumped Platelets Not Reportable 09/11/17 06:00 Plt Clumps, EDTA Not Reportable 09/11/17 06:00 Large Platelets Few 09/11/17 06:00 Giant Platelets Not Reportable 09/11/17 06:00 Platelet Satelliting Not Reportable 09/11/17 06:00 Plt Morphology Comment Not Reportable 09/11/17 06:00 RBC Morphology Not Reportable 09/11/17 06:00 Dimorphic RBCs Not Reportable 09/11/17 06:00 Polychromasia Not Reportable 09/11/17 06:00 Hypochromasia Not Reportable 09/11/17 06:00 Poikilocytosis Not Reportable 09/11/17 06:00 Anisocytosis 1+ 09/11/17 06:00 Microcytosis Not Reportable 09/11/17 06:00 Macrocytosis Not Reportable 09/11/17 06:00 Spherocytes Not Reportable 09/11/17 06:00 Pappenheimer Bodies Not Reportable 09/11/17 06:00 Sickle Cells Not Reportable 09/11/17 06:00 Target Cells Not Reportable 09/11/17 06:00 Tear Drop Cells Not Reportable 09/11/17 06:00 Ovalocytes Not Reportable 09/11/17 06:00 Helmet Cells Not Reportable 09/11/17 06:00 [place] Bodies Not Reportable 09/11/17 06:00 [place] Rings Not Reportable 09/11/17 06:00 [place] Cells Not Reportable 09/11/17 06:00 Bite Cells Not Reportable 09/11/17 06:00 Crenated Cell Not Reportable 09/11/17 06:00 Elliptocytes Not Reportable 09/11/17 06:00 Acanthocytes (Spur) Not Reportable 09/11/17 06:00 Rouleaux Not Reportable 09/11/17 06:00 Hemoglobin C Crystals Not Reportable 09/11/17 06:00 Schistocytes Not Reportable 09/11/17 06:00 Malaria parasites Not Reportable 09/11/17 06:00 Scott Bodies Not Reportable 09/11/17 06:00 Hem Pathologist Commnt No 09/11/17 06:00 PT 14.7 Sec. (12.2-14.9) 09/12/17 10:29 INR 1.09 (0.87-1.13) 09/12/17 10:29 APTT 26.2 Sec. (24.2-36.6) 09/12/17 10:29 Fibrinogen 611 mg/dl (211-480) H 09/04/17 17:23 D-Dimer 976.43 ng/mlDDU (0-234) H 09/01/17 23:27 POC ABG pH 7.415 (7.35-7.45) 09/14/17 06:14 POC ABG pCO2 52.0 (35-45) H 09/14/17 06:14 POC ABG pO2 85 (80-105) 09/14/17 06:14 POC ABG HCO3 33.3 09/14/17 06:14 POC ABG Total CO2 35 09/14/17 06:14 POC ABG O2 Sat 96 09/14/17 06:14 POC ABG Base Excess 9 09/14/17 06:14 FiO2 30 % 09/14/17 06:14 Sodium 140 mmol/L (137-145) 09/15/17 09:50 Potassium 3.6 mmol/L (3.6-5.0) 09/15/17 09:50 Chloride 104.7 mmol/L (98-107) 09/15/17 09:50 Carbon Dioxide 29 mmol/L (22-30) 09/15/17 09:50 Anion Gap 10 mmol/L 09/15/17 09:50 BUN 26 mg/dL (9-20) H 09/15/17 09:50 Creatinine 0.6 mg/dL (0.8-1.5) L 09/15/17 09:50 Estimated GFR > 60 ml/min 09/15/17 09:50 BUN/Creatinine Ratio 43 % 09/15/17 09:50 Glucose 83 mg/dL (75-100) 09/15/17 09:50 POC Glucose 95 (70-105) 09/15/17 05:21 Lactic Acid 2.90 mmol/L (0.7-2.0) H* 09/06/17 08:03 Calcium 9.3 mg/dL (8.4-10.2) 09/15/17 09:50 Phosphorus 2.50 mg/dL (2.5-4.5) 09/13/17 09:24 Magnesium 2.00 mg/dL (1.7-2.3) 09/13/17 09:24 Total Bilirubin 0.50 mg/dL (0.1-1.2) 09/15/17 09:50 AST 79 units/L (5-40) H 09/15/17 09:50 ALT 134 units/L (7-56) H 09/15/17 09:50 Alkaline Phosphatase 83 units/L (35-129) 09/15/17 09:50 Lactate Dehydrogenase 571 units/L (91-180) H 09/05/17 10:55 Troponin T < 0.010 ng/mL (0.00-0.029) 09/01/17 23:27 C-Reactive Protein 1.60 mg/dL (0.00-1.30) H 09/12/17 21:44 NT-Pro-B Natriuret Pep 4222 pg/mL (0-900) H 09/15/17 09:50 Total Protein 7.4 g/dL (6.3-8.2) 09/15/17 09:50 Albumin 2.1 g/dL (3.9-5) L 09/15/17 09:50 Albumin/Globulin Ratio 0.4 % 09/15/17 09:50 Lipase 12 units/L (13-60) L 09/04/17 17:23 Vancomycin Trough 22.0 ug/mL (5.0-20.0) H 09/14/17 12:00 Lymph Enumerat CD4/CD8 0.10 (0.86-5.00) L 09/05/17 14:30 % CD3 Cells 75 % (57-85) 09/05/17 14:30 Absolute CD3 Count 1105 cells/uL (840-3060) 09/05/17 14:30 % CD4 Cells 7 % (30-61) L 09/05/17 14:30 Absolute CD4 Count 101 cells/uL (490-1740) L 09/05/17 14:30 % CD8 Cells 66 % (12-42) H 09/05/17 14:30 Absolute CD8 Count 986 cells/uL (180-1170) 09/05/17 14:30 % CD19 Cells 4 % (6-29) L 09/05/17 14:30 Absolute CD19 Count 60 cells/uL (110-660) L 09/05/17 14:30 RPR Nonreactive (Nonreactive) 09/07/17 04:13 Hepatitis A IgM Ab Non-reactive (NonReactive) 09/05/17 10:55 Hep Bs Antigen Reactive (Negative) 09/05/17 10:55 Hep Bs Antibody, Quant <5 mIU/mL (>=10) L 09/07/17 04:13 Hep B Core Total Ab Reactive (Nonreactive) H 09/07/17 04:13 Hep B Core IgM Ab Non-reactive (NonReactive) 09/05/17 10:55 Hepatitis Be Antibody Nonreactive 09/07/17 04:13 Hepatitis Be Antigen Reactive H 09/07/17 04:13 Hepatitis C Antibody Non-reactive (NonReactive) 09/05/17 10:55 HIV-1 RNA PCR copies/ml 1750 Copies/mL H 09/05/17 14:30 HIV-1 RNA (PCR) log 3.24 Log cps/mL H 09/05/17 14:30 HIV-1 Genotyping see below 09/05/17 14:30 HIV 1&2 Antibody Rapid Reactive (Non React) 09/02/17 19:34 HIV P24 Antigen Non react (Non React) 09/02/17 19:34 Urine Legionella Ag Not detected (Not Detected) 09/02/17 13:55 TB (QFT) Gold In Tube Negative (Negative) 09/05/17 14:30 TB Test (QFT) Nil 0.04 IU/mL 09/05/17 14:30 TB Test Mitogen - Nil 2.28 IU/mL 09/05/17 14:30 TB Test Antigen - Nil 0.00 IU/mL 09/05/17 14:30 Miscellaneous Test Flexitest 1 09/06/17 11:30
[2017-09-15] MEDS: COREG PO SCH (23:03)
[2017-09-16] MEDS: LEVOPHED 8 MG in NACL 0.9% 250ML 242 ML IV SCH (01:09)
[2017-09-16] MEDS: DUONEB *Not for PRN Use IH SCH ×4 (02:20→20:08)
[2017-09-16] MEDS: NOVOLOG SUB-Q SCH ×4 (06:00→18:24)
[2017-09-16 07:12] LABS: Basophils % (Auto) 0.2 % (0.0-1.8); Eosinophils # (Auto) 0.1 K/mm3 (0.0-0.4); Eosinophils % (Auto) 1.6 % (0.0-4.3); Hematocrit 30.5 % (35.5-45.6); Hemoglobin 10.2 gm/dl (11.8-15.2); Lymphocytes % (Auto) 12.9 % (13.4-35.0); Mean Corpuscular HGB Conc 33 % (32-34); Mean Corpuscular Hemoglobin 28 pg (28-32); Mean Corpuscular Volume 85 fl (84-94); Monocytes # (Auto) 0.8 K/mm3 (0.0-0.8); Monocytes % (Auto) 9.6 % (0.0-7.3); Platelet Count 262 K/mm3 (140-440); Red Blood Count 3.59 M/mm3 (3.65-5.03); Red Cell Distribution Width 16.1 % (13.2-15.2)
[2017-09-16 07:22] LABS: BUN/Creatinine Ratio 47; Blood Urea Nitrogen 33 mg/dL (9-20); Calcium 9.4 mg/dL (8.4-10.2); Hemolysis Index 2
[2017-09-16] MEDS: COREG PO SCH ×2 (10:00→21:18)
[2017-09-16] MEDS: LASIX IV SCH (11:15)
[2017-09-16] MEDS: LOVENOX SUB-Q SCH (11:15)
[2017-09-16] MEDS: BACTRIM DS PO SCH (11:16)
[2017-09-16] MEDS: PEPCID PO SCH ×2 (11:17→21:18)
[2017-09-16] MEDS: VANCOMYCIN 1,250 MG in NACL 0.9% 250ML 250 ML IV SCH (11:50)
--- NOTE | 2017-09-16 13:53 | Progress Note ---
Assessment and Plan 52 y/o male, vet, admitted with acute respiratory failure thought secondary to pneumonia with lactic acidosis, found to have newly diagnosed HIV being treated empirically for PJP and with systolic heart failure 1. Tolerated extubation on yesterday. Stable. However given acuteness of decompensation prior, will keep in ICU through tomorrow. If remains stable, will transfer out. 2. Abx therapy per ID 3. Continue daily lasix therapy for volume overload as long as BP and renal function will allow. Will order labs as none done this am. Will also order coreg therapy, start low dose to help with tachycardia and overall cardiac function. Tolerated Coreg therapy well 4. Strict I/O 5. Continue feeds as tolerated 6. Overall prognosis is guarded to poor. . Subjective Date of service: 09/16/17 Principal diagnosis: Septic shock, acute hypoxemic respiratory failure, [place] Interval history: Successful extubation on yesterday. Sister not at bedside now. Awake but very minimal verbal communication. Nods head appropriately. Feeding tube still in nose. Actually on room air. DId not require bipap therapy. Objective Vital Signs - 12hr 09/16/17 09/16/17 09/16/17 02:00 02:15 02:20 Temperature Pulse Rate 81 79 Pulse Rate [ 69 Anterior Bilateral Throughout] Pulse Rate [ 73 From Monitor] Respiratory 17 30 H Rate Respiratory 24 Rate [Anterior Bilateral Throughout] Blood Pressure 91/65 107/71 O2 Sat by Pulse 100 100 Oximetry 09/16/17 09/16/17 09/16/17 02:30 02:35 02:45 Temperature Pulse Rate 81 74 Pulse Rate [ 71 Anterior Bilateral Throughout] Pulse Rate [ From Monitor] Respiratory 13 21 Rate Respiratory 24 Rate [Anterior Bilateral Throughout] Blood Pressure 111/79 103/66 O2 Sat by Pulse 99 100 Oximetry 09/16/17 09/16/17 09/16/17 03:00 03:15 03:30 Temperature Pulse Rate 82 71 78 Pulse Rate [ Anterior Bilateral Throughout] Pulse Rate [ From Monitor] Respiratory 16 29 H 14 Rate Respiratory Rate [Anterior Bilateral Throughout] Blood Pressure 105/68 96/66 106/74 O2 Sat by Pulse 99 100 100 Oximetry 09/16/17 09/16/17 09/16/17 03:45 04:00 04:15 Temperature Pulse Rate 70 69 75 Pulse Rate [ Anterior Bilateral Throughout] Pulse Rate [ 73 From Monitor] Respiratory 23 33 H 29 H Rate Respiratory Rate [Anterior Bilateral Throughout] Blood Pressure 105/65 100/66 103/68 O2 Sat by Pulse 100 100 100 Oximetry 09/16/17 09/16/17 09/16/17 04:16 04:30 04:45 Temperature 96.2 F L Pulse Rate 76 71 Pulse Rate [ Anterior Bilateral Throughout] Pulse Rate [ From Monitor] Respiratory 29 H 29 H Rate Respiratory Rate [Anterior Bilateral Throughout] Blood Pressure 113/74 121/76 O2 Sat by Pulse 100 100 Oximetry 09/16/17 09/16/17 09/16/17 05:00 05:15 05:30 Temperature Pulse Rate 72 71 69 Pulse Rate [ Anterior Bilateral Throughout] Pulse Rate [ From Monitor] Respiratory 29 H 26 H 14 Rate Respiratory Rate [Anterior Bilateral Throughout] Blood Pressure 117/68 124/77 127/69 O2 Sat by Pulse 100 100 100 Oximetry 09/16/17 09/16/17 09/16/17 05:45 06:00 06:15 Temperature Pulse Rate 65 65 65 Pulse Rate [ Anterior Bilateral Throughout] Pulse Rate [ 86 From Monitor] Respiratory 29 H 26 H 13 Rate Respiratory Rate [Anterior Bilateral Throughout] Blood Pressure 107/67 120/75 109/67 O2 Sat by Pulse 100 99 100 Oximetry 09/16/17 09/16/17 09/16/17 06:30 06:46 07:00 Temperature Pulse Rate 58 L 58 L 61 Pulse Rate [ Anterior Bilateral Throughout] Pulse Rate [ From Monitor] Respiratory 23 24 21 Rate Respiratory Rate [Anterior Bilateral Throughout] Blood Pressure 105/65 120/68 110/71 O2 Sat by Pulse 100 Oximetry 09/16/17 09/16/17 09/16/17 07:15 07:30 07:45 Temperature Pulse Rate 64 71 66 Pulse Rate [ Anterior Bilateral Throughout] Pulse Rate [ From Monitor] Respiratory 25 H 19 24 Rate Respiratory Rate [Anterior Bilateral Throughout] Blood Pressure 114/75 114/75 111/72 O2 Sat by Pulse 100 100 100 Oximetry 09/16/17 09/16/17 09/16/17 07:55 08:00 08:05 Temperature 97.5 F L Pulse Rate 69 Pulse Rate [ 63 68 Anterior Bilateral Throughout] Pulse Rate [ From Monitor] Respiratory 13 Rate Respiratory 20 20 Rate [Anterior Bilateral Throughout] Blood Pressure 113/71 O2 Sat by Pulse 100 100 Oximetry 09/16/17 09/16/17 09/16/17 08:15 08:30 08:45 Temperature Pulse Rate 66 68 67 Pulse Rate [ Anterior Bilateral Throughout] Pulse Rate [ From Monitor] Respiratory 18 23 25 H Rate Respiratory Rate [Anterior Bilateral Throughout] Blood Pressure 111/67 100/65 103/64 O2 Sat by Pulse 99 100 100 Oximetry 09/16/17 09/16/17 09/16/17 09:00 09:15 09:30 Temperature Pulse Rate 62 67 78 Pulse Rate [ Anterior Bilateral Throughout] Pulse Rate [ From Monitor] Respiratory 25 H 27 H 32 H Rate Respiratory Rate [Anterior Bilateral Throughout] Blood Pressure 109/66 106/66 117/72 O2 Sat by Pulse 100 100 100 Oximetry 09/16/17 09:45 Temperature Pulse Rate 81 Pulse Rate [ Anterior Bilateral Throughout] Pulse Rate [ From Monitor] Respiratory 30 H Rate Respiratory Rate [Anterior Bilateral Throughout] Blood Pressure 103/69 O2 Sat by Pulse 99 Oximetry Constitutional: other (critically ill on vent, sedated) Eyes: non-icteric ENT: other (orally intubated and sedated) Neck: supple Effort: normal Ascultation: Bilateral: diminished breath sounds, rales, other (coarse BS bilaterally) Percussion: Bilateral: not dull Cardiovascular: regular rate and rhythm (sinus tach) Gastrointestinal: hypoactive bowel sounds, soft, non-tender, non-distended Extremities: no cyanosis, no edema, pink and warm Neurologic: normal mental status, non-focal exam, pupils equal and round, CN II- XII normal Psychiatric: other (unable to assess) CBC and BMP: 09/16/17 06:51 09/16/17 06:51 ABG, PT/INR, D-dimer: ABG POC ABG pH 7.415 (7.35-7.45) 09/14/17 06:14 POC ABG pCO2 52.0 (35-45) H 09/14/17 06:14 POC ABG pO2 85 (80-105) 09/14/17 06:14 POC ABG HCO3 33.3 09/14/17 06:14 POC ABG Total CO2 35 09/14/17 06:14 POC ABG O2 Sat 96 09/14/17 06:14 PT/INR, D-dimer PT 14.7 Sec. (12.2-14.9) 09/12/17 10:29 INR 1.09 (0.87-1.13) 09/12/17 10:29 D-Dimer 976.43 ng/mlDDU (0-234) H 09/01/17 23:27 Abnormal lab findings: Abnormal Labs 09/01/17 09/01/17 09/01/17 19:00 19:00 23:27 WBC RBC Hgb 10.9 L Hct 32.3 L MCV 83 L MCH RDW 15.6 H Plt Count Lymph % (Auto) [place] % (Auto) Lymph # Seg Neutrophils % Seg Neuts % (Manual) Lymphocytes % (Manual) Nucleated RBC % Seg Neutrophils # Man Lymphocytes # (Manual) PT INR Fibrinogen D-Dimer 976.43 H POC ABG pH POC ABG pCO2 POC ABG pO2 Sodium 133 L Potassium Chloride 96.4 L Carbon Dioxide BUN Creatinine Glucose 113 H POC Glucose Lactic Acid Calcium Phosphorus Magnesium AST ALT Lactate Dehydrogenase C-Reactive Protein NT-Pro-B Natriuret Pep Total Protein Albumin Lipase Vancomycin Trough Lymph Enumerat CD4/CD8 % CD4 Cells Absolute CD4 Count % CD8 Cells % CD19 Cells Absolute CD19 Count Hep Bs Antibody, Quant Hep B Core Total Ab Hepatitis Be Antigen HIV-1 RNA PCR copies/ml HIV-1 RNA (PCR) log 09/01/17 09/02/17 09/02/17 23:27 01:25 07:36 WBC 2.2 L RBC 3.41 L Hgb 9.6 L Hct 28.9 L MCV MCH RDW 16.0 H Plt Count Lymph % (Auto) [place] % (Auto) 12.6 H Lymph # Seg Neutrophils % 70.4 H Seg Neuts % (Manual) Lymphocytes % (Manual) Nucleated RBC % Seg Neutrophils # Man 1.1 L Lymphocytes # (Manual) 0.6 L PT INR Fibrinogen D-Dimer POC ABG pH POC ABG pCO2 POC ABG pO2 Sodium Potassium Chloride Carbon Dioxide BUN Creatinine Glucose POC Glucose Lactic Acid 3.30 H* 4.10 H* Calcium Phosphorus Magnesium AST ALT Lactate Dehydrogenase C-Reactive Protein NT-Pro-B Natriuret Pep Total Protein Albumin Lipase Vancomycin Trough Lymph Enumerat CD4/CD8 % CD4 Cells Absolute CD4 Count % CD8 Cells % CD19 Cells Absolute CD19 Count Hep Bs Antibody, Quant Hep B Core Total Ab Hepatitis Be Antigen HIV-1 RNA PCR copies/ml HIV-1 RNA (PCR) log 09/02/17 09/02/17 09/02/17 07:36 07:36 07:36 WBC RBC Hgb Hct MCV MCH RDW Plt Count Lymph % (Auto) [place] % (Auto) Lymph # Seg Neutrophils % Seg Neuts % (Manual) Lymphocytes % (Manual) Nucleated RBC % Seg Neutrophils # Man Lymphocytes # (Manual) PT 18.6 H INR 1.46 H Fibrinogen D-Dimer POC ABG pH POC ABG pCO2 POC ABG pO2 Sodium 136 L Potassium Chloride Carbon Dioxide BUN Creatinine Glucose POC Glucose Lactic Acid 3.80 H* Calcium Phosphorus Magnesium 1.20 L AST ALT Lactate Dehydrogenase C-Reactive Protein NT-Pro-B Natriuret Pep Total Protein 9.1 H Albumin 2.0 L Lipase Vancomycin Trough Lymph Enumerat CD4/CD8 % CD4 Cells Absolute CD4 Count % CD8 Cells % CD19 Cells Absolute CD19 Count Hep Bs Antibody, Quant Hep B Core Total Ab Hepatitis Be Antigen HIV-1 RNA PCR copies/ml HIV-1 RNA (PCR) log 09/02/17 09/02/17 09/02/17 08:49 09:40 11:33 WBC RBC Hgb Hct MCV MCH RDW Plt Count Lymph % (Auto) [place] % (Auto) Lymph # Seg Neutrophils % Seg Neuts % (Manual) Lymphocytes % (Manual) Nucleated RBC % Seg Neutrophils # Man Lymphocytes # (Manual) PT INR Fibrinogen D-Dimer POC ABG pH 7.313 L POC ABG pCO2 POC ABG pO2 116 H Sodium Potassium Chloride Carbon Dioxide BUN Creatinine Glucose POC Glucose Lactic Acid 3.60 H* 5.20 H* Calcium Phosphorus Magnesium AST ALT Lactate Dehydrogenase C-Reactive Protein NT-Pro-B Natriuret Pep Total Protein Albumin Lipase Vancomycin Trough Lymph Enumerat CD4/CD8 % CD4 Cells Absolute CD4 Count % CD8 Cells % CD19 Cells Absolute CD19 Count Hep Bs Antibody, Quant Hep B Core Total Ab Hepatitis Be Antigen HIV-1 RNA PCR copies/ml HIV-1 RNA (PCR) log 09/02/17 09/02/17 09/02/17 19:34 23:37 23:40 WBC RBC Hgb Hct MCV MCH RDW Plt Count Lymph % (Auto) [place] % (Auto) Lymph # Seg Neutrophils % Seg Neuts % (Manual) Lymphocytes % (Manual) Nucleated RBC % Seg Neutrophils # Man Lymphocytes # (Manual) PT INR Fibrinogen D-Dimer POC ABG pH POC ABG pCO2 POC ABG pO2 Sodium Potassium Chloride Carbon Dioxide BUN Creatinine Glucose 59 L POC Glucose 47 L Lactic Acid Calcium Phosphorus Magnesium AST ALT Lactate Dehydrogenase C-Reactive Protein 22.30 H NT-Pro-B Natriuret Pep Total Protein Albumin Lipase Vancomycin Trough Lymph Enumerat CD4/CD8 % CD4 Cells Absolute CD4 Count % CD8 Cells % CD19 Cells Absolute CD19 Count Hep Bs Antibody, Quant Hep B Core Total Ab Hepatitis Be Antigen HIV-1 RNA PCR copies/ml HIV-1 RNA (PCR) log 09/03/17 09/03/17 09/03/17 00:06 05:15 05:15 WBC RBC 3.59 L Hgb 10.1 L Hct 31.5 L MCV MCH RDW 18.0 H Plt Count Lymph % (Auto) [place] % (Auto) Lymph # Seg Neutrophils % Seg Neuts % (Manual) Lymphocytes % (Manual) 1.0 L Nucleated RBC % 1.0 H Seg Neutrophils # Man Lymphocytes # (Manual) 0.1 L PT INR Fibrinogen D-Dimer POC ABG pH POC ABG pCO2 POC ABG pO2 Sodium Potassium Chloride Carbon Dioxide BUN Creatinine Glucose POC Glucose 144 H Lactic Acid 9.10 H* Calcium Phosphorus Magnesium AST ALT Lactate Dehydrogenase C-Reactive Protein NT-Pro-B Natriuret Pep Total Protein Albumin Lipase Vancomycin Trough Lymph Enumerat CD4/CD8 % CD4 Cells Absolute CD4 Count % CD8 Cells % CD19 Cells Absolute CD19 Count Hep Bs Antibody, Quant Hep B Core Total Ab Hepatitis Be Antigen HIV-1 RNA PCR copies/ml HIV-1 RNA (PCR) log 09/03/17 09/03/17 09/03/17 05:15 05:55 07:40 WBC RBC Hgb Hct MCV MCH RDW Plt Count Lymph % (Auto) [place] % (Auto) Lymph # Seg Neutrophils % Seg Neuts % (Manual) Lymphocytes % (Manual) Nucleated RBC % Seg Neutrophils # Man Lymphocytes # (Manual) PT INR Fibrinogen D-Dimer POC ABG pH 6.999 L POC ABG pCO2 POC ABG pO2 64 L Sodium Potassium 5.6 H D Chloride 108.4 H Carbon Dioxide 11 L D BUN 30 H Creatinine Glucose 115 H POC Glucose Lactic Acid 9.20 H* Calcium 7.3 L D Phosphorus 6.40 H Magnesium AST 88 H ALT Lactate Dehydrogenase C-Reactive Protein NT-Pro-B Natriuret Pep Total Protein Albumin 1.7 L Lipase Vancomycin Trough Lymph Enumerat CD4/CD8 % CD4 Cells Absolute CD4 Count % CD8 Cells % CD19 Cells Absolute CD19 Count Hep Bs Antibody, Quant Hep B Core Total Ab Hepatitis Be Antigen HIV-1 RNA PCR copies/ml HIV-1 RNA (PCR) log 09/03/17 09/03/17 09/03/17 09:55 12:03 13:17 WBC RBC Hgb Hct MCV MCH RDW Plt Count Lymph % (Auto) [place] % (Auto) Lymph # Seg Neutrophils % Seg Neuts % (Manual) Lymphocytes % (Manual) Nucleated RBC % Seg Neutrophils # Man Lymphocytes # (Manual) PT INR Fibrinogen D-Dimer POC ABG pH POC ABG pCO2 POC ABG pO2 Sodium Potassium Chloride Carbon Dioxide BUN Creatinine Glucose POC Glucose 155 H Lactic Acid 9.50 H* 9.90 H* Calcium Phosphorus Magnesium AST ALT Lactate Dehydrogenase C-Reactive Protein NT-Pro-B Natriuret Pep Total Protein Albumin Lipase Vancomycin Trough Lymph Enumerat CD4/CD8 % CD4 Cells Absolute CD4 Count % CD8 Cells % CD19 Cells Absolute CD19 Count Hep Bs Antibody, Quant Hep B Core Total Ab Hepatitis Be Antigen HIV-1 RNA PCR copies/ml HIV-1 RNA (PCR) log 09/03/17 09/03/17 09/03/17 15:55 17:13 18:02 WBC RBC Hgb Hct MCV MCH RDW Plt Count Lymph % (Auto) [place] % (Auto) Lymph # Seg Neutrophils % Seg Neuts % (Manual) Lymphocytes % (Manual) Nucleated RBC % Seg Neutrophils # Man Lymphocytes # (Manual) PT INR Fibrinogen D-Dimer POC ABG pH POC ABG pCO2 POC ABG pO2 Sodium Potassium Chloride Carbon Dioxide BUN Creatinine Glucose POC Glucose 171 H Lactic Acid 9.60 H* 9.00 H* Calcium Phosphorus Magnesium AST ALT Lactate Dehydrogenase C-Reactive Protein NT-Pro-B Natriuret Pep Total Protein Albumin Lipase Vancomycin Trough Lymph Enumerat CD4/CD8 % CD4 Cells Absolute CD4 Count % CD8 Cells % CD19 Cells Absolute CD19 Count Hep Bs Antibody, Quant Hep B Core Total Ab Hepatitis Be Antigen HIV-1 RNA PCR copies/ml HIV-1 RNA (PCR) log 09/03/17 09/03/17 09/04/17 20:29 23:02 04:00 WBC RBC Hgb Hct MCV MCH RDW Plt Count Lymph % (Auto) [place] % (Auto) Lymph # Seg Neutrophils % Seg Neuts % (Manual) Lymphocytes % (Manual) Nucleated RBC % Seg Neutrophils # Man Lymphocytes # (Manual) PT INR Fibrinogen D-Dimer POC ABG pH POC ABG pCO2 POC ABG pO2 Sodium Potassium Chloride Carbon Dioxide BUN Creatinine Glucose POC Glucose 156 H Lactic Acid 9.00 H* 3.00 H* Calcium Phosphorus Magnesium AST ALT Lactate Dehydrogenase C-Reactive Protein NT-Pro-B Natriuret Pep Total Protein Albumin Lipase Vancomycin Trough Lymph Enumerat CD4/CD8 % CD4 Cells Absolute CD4 Count % CD8 Cells % CD19 Cells Absolute CD19 Count Hep Bs Antibody, Quant Hep B Core Total Ab Hepatitis Be Antigen HIV-1 RNA PCR copies/ml HIV-1 RNA (PCR) log 09/04/17 09/04/17 09/04/17 04:00 04:00 09:00 WBC RBC 3.44 L Hgb 9.6 L Hct 29.0 L MCV MCH RDW 17.4 H Plt Count 124 L Lymph % (Auto) [place] % (Auto) Lymph # Seg Neutrophils % Seg Neuts % (Manual) 91.0 H Lymphocytes % (Manual) 3.0 L Nucleated RBC % 2.0 H Seg Neutrophils # Man 9.9 H Lymphocytes # (Manual) 0.3 L PT 28.4 H INR 2.47 H Fibrinogen D-Dimer POC ABG pH POC ABG pCO2 POC ABG pO2 Sodium Potassium Chloride 110.1 H Carbon Dioxide BUN 29 H Creatinine Glucose 192 H POC Glucose Lactic Acid Calcium 6.8 L Phosphorus Magnesium AST 361 H ALT 315 H Lactate Dehydrogenase C-Reactive Protein NT-Pro-B Natriuret Pep Total Protein Albumin 1.6 L Lipase Vancomycin Trough Lymph Enumerat CD4/CD8 % CD4 Cells Absolute CD4 Count % CD8 Cells % CD19 Cells Absolute CD19 Count Hep Bs Antibody, Quant Hep B Core Total Ab Hepatitis Be Antigen HIV-1 RNA PCR copies/ml HIV-1 RNA (PCR) log 09/04/17 09/04/17 09/04/17 09:00 12:00 17:23 WBC RBC Hgb Hct MCV MCH RDW Plt Count Lymph % (Auto) [place] % (Auto) Lymph # Seg Neutrophils % Seg Neuts % (Manual) Lymphocytes % (Manual) Nucleated RBC % Seg Neutrophils # Man Lymphocytes # (Manual) PT INR Fibrinogen 611 H D-Dimer POC ABG pH POC ABG pCO2 POC ABG pO2 Sodium Potassium Chloride Carbon Dioxide BUN Creatinine Glucose POC Glucose Lactic Acid 2.10 H* 3.40 H* Calcium Phosphorus Magnesium AST ALT Lactate Dehydrogenase C-Reactive Protein NT-Pro-B Natriuret Pep Total Protein Albumin Lipase Vancomycin Trough Lymph Enumerat CD4/CD8 % CD4 Cells Absolute CD4 Count % CD8 Cells % CD19 Cells Absolute CD19 Count Hep Bs Antibody, Quant Hep B Core Total Ab Hepatitis Be Antigen HIV-1 RNA PCR copies/ml HIV-1 RNA (PCR) log 09/04/17 09/04/17 09/04/17 17:23 17:47 22:30 WBC RBC Hgb Hct MCV MCH RDW Plt Count Lymph % (Auto) [place] % (Auto) Lymph # Seg Neutrophils % Seg Neuts % (Manual) Lymphocytes % (Manual) Nucleated RBC % Seg Neutrophils # Man Lymphocytes # (Manual) PT INR Fibrinogen D-Dimer POC ABG pH POC ABG pCO2 POC ABG pO2 Sodium Potassium Chloride Carbon Dioxide BUN Creatinine Glucose POC Glucose 107 H Lactic Acid 4.70 H* Calcium Phosphorus Magnesium AST ALT Lactate Dehydrogenase C-Reactive Protein NT-Pro-B Natriuret Pep Total Protein Albumin Lipase 12 L Vancomycin Trough Lymph Enumerat CD4/CD8 % CD4 Cells Absolute CD4 Count % CD8 Cells % CD19 Cells Absolute CD19 Count Hep Bs Antibody, Quant Hep B Core Total Ab Hepatitis Be Antigen HIV-1 RNA PCR copies/ml HIV-1 RNA (PCR) log 09/04/17 09/05/17 09/05/17 23:08 05:31 06:00 WBC RBC Hgb Hct MCV MCH RDW Plt Count Lymph % (Auto) [place] % (Auto) Lymph # Seg Neutrophils % Seg Neuts % (Manual) Lymphocytes % (Manual) Nucleated RBC % Seg Neutrophils # Man Lymphocytes # (Manual) PT INR Fibrinogen D-Dimer POC ABG pH 7.226 L POC ABG pCO2 65.4 H POC ABG pO2 61 L Sodium Potassium Chloride 112.7 H Carbon Dioxide BUN 31 H Creatinine Glucose 132 H POC Glucose 109 H Lactic Acid Calcium 7.7 L Phosphorus Magnesium AST 834 H ALT 898 H Lactate Dehydrogenase C-Reactive Protein NT-Pro-B Natriuret Pep Total Protein Albumin 1.4 L Lipase Vancomycin Trough Lymph Enumerat CD4/CD8 % CD4 Cells Absolute CD4 Count % CD8 Cells % CD19 Cells Absolute CD19 Count Hep Bs Antibody, Quant Hep B Core Total Ab Hepatitis Be Antigen HIV-1 RNA PCR copies/ml HIV-1 RNA (PCR) log 09/05/17 09/05/17 09/05/17 06:00 06:35 10:26 WBC RBC Hgb Hct MCV MCH RDW Plt Count Lymph % (Auto) [place] % (Auto) Lymph # Seg Neutrophils % Seg Neuts % (Manual) Lymphocytes % (Manual) Nucleated RBC % Seg Neutrophils # Man Lymphocytes # (Manual) PT INR Fibrinogen D-Dimer POC ABG pH 7.311 L POC ABG pCO2 58.5 H POC ABG pO2 213 H Sodium Potassium Chloride Carbon Dioxide BUN Creatinine Glucose POC Glucose 110 H Lactic Acid 4.50 H* Calcium Phosphorus Magnesium AST ALT Lactate Dehydrogenase C-Reactive Protein NT-Pro-B Natriuret Pep Total Protein Albumin Lipase Vancomycin Trough Lymph Enumerat CD4/CD8 % CD4 Cells Absolute CD4 Count % CD8 Cells % CD19 Cells Absolute CD19 Count Hep Bs Antibody, Quant Hep B Core Total Ab Hepatitis Be Antigen HIV-1 RNA PCR copies/ml HIV-1 RNA (PCR) log 09/05/17 09/05/17 09/05/17 10:55 10:55 10:55 WBC 11.1 H RBC 3.38 L Hgb 9.3 L Hct 28.7 L MCV MCH RDW 16.7 H Plt Count 118 L Lymph % (Auto) [place] % (Auto) Lymph # Seg Neutrophils % Seg Neuts % (Manual) 92.0 H Lymphocytes % (Manual) 4.0 L Nucleated RBC % 2.0 H Seg Neutrophils # Man 10.2 H Lymphocytes # (Manual) 0.4 L PT INR Fibrinogen D-Dimer POC ABG pH POC ABG pCO2 POC ABG pO2 Sodium Potassium Chloride Carbon Dioxide BUN Creatinine Glucose POC Glucose Lactic Acid 3.60 H* Calcium Phosphorus Magnesium AST ALT Lactate Dehydrogenase 571 H C-Reactive Protein NT-Pro-B Natriuret Pep Total Protein Albumin Lipase Vancomycin Trough Lymph Enumerat CD4/CD8 % CD4 Cells Absolute CD4 Count % CD8 Cells % CD19 Cells Absolute CD19 Count Hep Bs Antibody, Quant Hep B Core Total Ab Hepatitis Be Antigen HIV-1 RNA PCR copies/ml HIV-1 RNA (PCR) log 09/05/17 09/05/17 09/05/17 12:05 14:30 14:30 WBC RBC Hgb Hct MCV MCH RDW Plt Count Lymph % (Auto) [place] % (Auto) Lymph # Seg Neutrophils % Seg Neuts % (Manual) Lymphocytes % (Manual) Nucleated RBC % Seg Neutrophils # Man Lymphocytes # (Manual) PT INR Fibrinogen D-Dimer POC ABG pH POC ABG pCO2 POC ABG pO2 Sodium Potassium Chloride Carbon Dioxide BUN Creatinine Glucose POC Glucose 148 H Lactic Acid Calcium Phosphorus Magnesium AST ALT Lactate Dehydrogenase C-Reactive Protein NT-Pro-B Natriuret Pep Total Protein Albumin Lipase Vancomycin Trough Lymph Enumerat CD4/CD8 0.10 L % CD4 Cells 7 L Absolute CD4 Count 101 L % CD8 Cells 66 H % CD19 Cells 4 L Absolute CD19 Count 60 L Hep Bs Antibody, Quant Hep B Core Total Ab Hepatitis Be Antigen HIV-1 RNA PCR copies/ml 1750 H HIV-1 RNA (PCR) log 3.24 H 09/05/17 09/05/17 09/05/17 16:30 17:42 19:55 WBC RBC Hgb Hct MCV MCH RDW Plt Count Lymph % (Auto) [place] % (Auto) Lymph # Seg Neutrophils % Seg Neuts % (Manual) Lymphocytes % (Manual) Nucleated RBC % Seg Neutrophils # Man Lymphocytes # (Manual) PT INR Fibrinogen D-Dimer POC ABG pH POC ABG pCO2 POC ABG pO2 Sodium Potassium Chloride Carbon Dioxide BUN Creatinine Glucose POC Glucose 183 H Lactic Acid 3.50 H* 3.60 H* Calcium Phosphorus Magnesium AST ALT Lactate Dehydrogenase C-Reactive Protein NT-Pro-B Natriuret Pep Total Protein Albumin Lipase Vancomycin Trough Lymph Enumerat CD4/CD8 % CD4 Cells Absolute CD4 Count % CD8 Cells % CD19 Cells Absolute CD19 Count Hep Bs Antibody, Quant Hep B Core Total Ab Hepatitis Be Antigen HIV-1 RNA PCR copies/ml HIV-1 RNA (PCR) log 09/05/17 09/06/17 09/06/17 23:29 03:58 05:33 WBC RBC Hgb Hct MCV MCH RDW Plt Count Lymph % (Auto) [place] % (Auto) Lymph # Seg Neutrophils % Seg Neuts % (Manual) Lymphocytes % (Manual) Nucleated RBC % Seg Neutrophils # Man Lymphocytes # (Manual) PT INR Fibrinogen D-Dimer POC ABG pH POC ABG pCO2 62.5 H POC ABG pO2 141 H Sodium Potassium Chloride Carbon Dioxide BUN Creatinine Glucose POC Glucose 203 H 207 H Lactic Acid Calcium Phosphorus Magnesium AST ALT Lactate Dehydrogenase C-Reactive Protein NT-Pro-B Natriuret Pep Total Protein Albumin Lipase Vancomycin Trough Lymph Enumerat CD4/CD8 % CD4 Cells Absolute CD4 Count % CD8 Cells % CD19 Cells Absolute CD19 Count Hep Bs Antibody, Quant Hep B Core Total Ab Hepatitis Be Antigen HIV-1 RNA PCR copies/ml HIV-1 RNA (PCR) log 09/06/17 09/06/17 09/06/17 06:15 06:15 06:15 WBC RBC 3.26 L Hgb 9.0 L Hct 27.5 L MCV MCH RDW 16.7 H Plt Count 104 L Lymph % (Auto) [place] % (Auto) Lymph # Seg Neutrophils % Seg Neuts % (Manual) 97.0 H Lymphocytes % (Manual) 2.0 L Nucleated RBC % Seg Neutrophils # Man 8.1 H Lymphocytes # (Manual) 0.2 L PT INR Fibrinogen D-Dimer POC ABG pH POC ABG pCO2 POC ABG pO2 Sodium 150 H Potassium Chloride 110.9 H Carbon Dioxide 31 H BUN 34 H Creatinine Glucose 207 H POC Glucose Lactic Acid 2.90 H* Calcium 8.2 L Phosphorus Magnesium AST 346 H ALT 634 H Lactate Dehydrogenase C-Reactive Protein NT-Pro-B Natriuret Pep Total Protein Albumin 1.5 L Lipase Vancomycin Trough Lymph Enumerat CD4/CD8 % CD4 Cells Absolute CD4 Count % CD8 Cells % CD19 Cells Absolute CD19 Count Hep Bs Antibody, Quant Hep B Core Total Ab Hepatitis Be Antigen HIV-1 RNA PCR copies/ml HIV-1 RNA (PCR) log 09/06/17 09/06/17 09/06/17 08:03 11:32 18:04 WBC RBC Hgb Hct MCV MCH RDW Plt Count Lymph % (Auto) [place] % (Auto) Lymph # Seg Neutrophils % Seg Neuts % (Manual) Lymphocytes % (Manual) Nucleated RBC % Seg Neutrophils # Man Lymphocytes # (Manual) PT INR Fibrinogen D-Dimer POC ABG pH POC ABG pCO2 POC ABG pO2 Sodium Potassium Chloride Carbon Dioxide BUN Creatinine Glucose POC Glucose 169 H 130 H Lactic Acid 2.90 H* Calcium Phosphorus Magnesium AST ALT Lactate Dehydrogenase C-Reactive Protein NT-Pro-B Natriuret Pep Total Protein Albumin Lipase Vancomycin Trough Lymph Enumerat CD4/CD8 % CD4 Cells Absolute CD4 Count % CD8 Cells % CD19 Cells Absolute CD19 Count Hep Bs Antibody, Quant Hep B Core Total Ab Hepatitis Be Antigen HIV-1 RNA PCR copies/ml HIV-1 RNA (PCR) log 09/07/17 09/07/17 09/07/17 00:03 04:13 04:13 WBC RBC Hgb Hct MCV MCH RDW Plt Count Lymph % (Auto) [place] % (Auto) Lymph # Seg Neutrophils % Seg Neuts % (Manual) Lymphocytes % (Manual) Nucleated RBC % Seg Neutrophils # Man Lymphocytes # (Manual) PT INR Fibrinogen D-Dimer POC ABG pH POC ABG pCO2 POC ABG pO2 Sodium 152 H Potassium 3.5 L Chloride 114.9 H Carbon Dioxide 34 H BUN 35 H Creatinine Glucose 149 H POC Glucose 123 H Lactic Acid Calcium Phosphorus Magnesium AST 150 H ALT 381 H Lactate Dehydrogenase C-Reactive Protein NT-Pro-B Natriuret Pep Total Protein Albumin 1.3 L Lipase Vancomycin Trough Lymph Enumerat CD4/CD8 % CD4 Cells Absolute CD4 Count % CD8 Cells % CD19 Cells Absolute CD19 Count Hep Bs Antibody, Quant Hep B Core Total Ab Reactive H Hepatitis Be Antigen HIV-1 RNA PCR copies/ml HIV-1 RNA (PCR) log 09/07/17 09/07/17 09/07/17 04:13 04:13 04:33 WBC RBC Hgb Hct MCV MCH RDW Plt Count Lymph % (Auto) [place] % (Auto) Lymph # Seg Neutrophils % Seg Neuts % (Manual) Lymphocytes % (Manual) Nucleated RBC % Seg Neutrophils # Man Lymphocytes # (Manual) PT INR Fibrinogen D-Dimer POC ABG pH 7.590 H POC ABG pCO2 POC ABG pO2 179 H Sodium Potassium Chloride Carbon Dioxide BUN Creatinine Glucose POC Glucose Lactic Acid Calcium Phosphorus Magnesium AST ALT Lactate Dehydrogenase C-Reactive Protein NT-Pro-B Natriuret Pep Total Protein Albumin Lipase Vancomycin Trough Lymph Enumerat CD4/CD8 % CD4 Cells Absolute CD4 Count % CD8 Cells % CD19 Cells Absolute CD19 Count Hep Bs Antibody, Quant <5 L Hep B Core Total Ab Hepatitis Be Antigen Reactive H HIV-1 RNA PCR copies/ml HIV-1 RNA (PCR) log 09/07/17 09/07/17 09/07/17 05:05 08:20 11:34 WBC 11.9 H RBC 3.11 L Hgb 8.4 L Hct 26.0 L MCV MCH 27 L RDW 16.2 H Plt Count 109 L Lymph % (Auto) [place] % (Auto) Lymph # Seg Neutrophils % Seg Neuts % (Manual) 93.0 H Lymphocytes % (Manual) 1.0 L Nucleated RBC % Seg Neutrophils # Man 11.1 H Lymphocytes # (Manual) 0.1 L PT INR Fibrinogen D-Dimer POC ABG pH POC ABG pCO2 POC ABG pO2 Sodium Potassium Chloride Carbon Dioxide BUN Creatinine Glucose POC Glucose 168 H 156 H Lactic Acid Calcium Phosphorus Magnesium AST ALT Lactate Dehydrogenase C-Reactive Protein NT-Pro-B Natriuret Pep Total Protein Albumin Lipase Vancomycin Trough Lymph Enumerat CD4/CD8 % CD4 Cells Absolute CD4 Count % CD8 Cells % CD19 Cells Absolute CD19 Count Hep Bs Antibody, Quant Hep B Core Total Ab Hepatitis Be Antigen HIV-1 RNA PCR copies/ml HIV-1 RNA (PCR) log 09/07/17 09/07/17 09/07/17 18:13 20:14 20:14 WBC 14.6 H RBC 3.36 L Hgb 9.2 L Hct 28.3 L MCV MCH 27 L RDW 16.1 H Plt Count 120 L Lymph % (Auto) [place] % (Auto) Lymph # Seg Neutrophils % Seg Neuts % (Manual) 93.0 H Lymphocytes % (Manual) 2.0 L Nucleated RBC % Seg Neutrophils # Man 13.6 H Lymphocytes # (Manual) 0.3 L PT INR Fibrinogen D-Dimer POC ABG pH POC ABG pCO2 POC ABG pO2 Sodium 154 H Potassium 3.4 L Chloride 114.7 H Carbon Dioxide 34 H BUN 37 H Creatinine Glucose 131 H POC Glucose 136 H Lactic Acid Calcium Phosphorus Magnesium AST ALT Lactate Dehydrogenase C-Reactive Protein NT-Pro-B Natriuret Pep Total Protein Albumin Lipase Vancomycin Trough Lymph Enumerat CD4/CD8 % CD4 Cells Absolute CD4 Count % CD8 Cells % CD19 Cells Absolute CD19 Count Hep Bs Antibody, Quant Hep B Core Total Ab Hepatitis Be Antigen HIV-1 RNA PCR copies/ml HIV-1 RNA (PCR) log 09/08/17 09/08/17 09/08/17 05:15 05:30 05:30 WBC 13.6 H RBC 3.29 L Hgb 9.1 L Hct 27.4 L MCV 83 L MCH RDW 15.8 H Plt Count 111 L Lymph % (Auto) [place] % (Auto) Lymph # Seg Neutrophils % Seg Neuts % (Manual) 94.0 H Lymphocytes % (Manual) 4.0 L Nucleated RBC % 1.0 H Seg Neutrophils # Man 12.8 H Lymphocytes # (Manual) 0.5 L PT INR Fibrinogen D-Dimer POC ABG pH 7.460 H POC ABG pCO2 54.7 H POC ABG pO2 209 H Sodium Potassium Chloride Carbon Dioxide BUN Creatinine Glucose POC Glucose Lactic Acid Calcium Phosphorus Magnesium AST ALT Lactate Dehydrogenase C-Reactive Protein 8.70 H NT-Pro-B Natriuret Pep Total Protein Albumin Lipase Vancomycin Trough Lymph Enumerat CD4/CD8 % CD4 Cells Absolute CD4 Count % CD8 Cells % CD19 Cells Absolute CD19 Count Hep Bs Antibody, Quant Hep B Core Total Ab Hepatitis Be Antigen HIV-1 RNA PCR copies/ml HIV-1 RNA (PCR) log 09/08/17 09/08/1709/08/18 05:30 12:24 17:19 WBC RBC Hgb Hct MCV MCH RDW Plt Count Lymph % (Auto) [place] % (Auto) Lymph # Seg Neutrophils % Seg Neuts % (Manual) Lymphocytes % (Manual) Nucleated RBC % Seg Neutrophils # Man Lymphocytes # (Manual) PT INR Fibrinogen D-Dimer POC ABG pH POC ABG pCO2 POC ABG pO2 Sodium 154 H Potassium Chloride 114.3 H Carbon Dioxide 36 H BUN 39 H Creatinine Glucose 163 H POC Glucose 181 H 170 H Lactic Acid Calcium Phosphorus Magnesium AST ALT Lactate Dehydrogenase C-Reactive Protein NT-Pro-B Natriuret Pep Total Protein Albumin Lipase Vancomycin Trough Lymph Enumerat CD4/CD8 % CD4 Cells Absolute CD4 Count % CD8 Cells % CD19 Cells Absolute CD19 Count Hep Bs Antibody, Quant Hep B Core Total Ab Hepatitis Be Antigen HIV-1 RNA PCR copies/ml HIV-1 RNA (PCR) log 09/08/17 09/09/17 09/09/17 23:51 04:00 04:00 WBC 20.1 H RBC 3.37 L Hgb 9.2 L Hct 28.0 L MCV 83 L MCH 27 L RDW 15.7 H Plt Count 123 L Lymph % (Auto) [place] % (Auto) Lymph # Seg Neutrophils % Seg Neuts % (Manual) 86.0 H Lymphocytes % (Manual) 9.0 L Nucleated RBC % Seg Neutrophils # Man 17.3 H Lymphocytes # (Manual) PT INR Fibrinogen D-Dimer POC ABG pH POC ABG pCO2 POC ABG pO2 Sodium 150 H Potassium 3.0 L Chloride 107.7 H Carbon Dioxide 35 H BUN 39 H Creatinine Glucose 174 H POC Glucose 185 H Lactic Acid Calcium Phosphorus Magnesium AST ALT Lactate Dehydrogenase C-Reactive Protein NT-Pro-B Natriuret Pep Total Protein Albumin Lipase Vancomycin Trough Lymph Enumerat CD4/CD8 % CD4 Cells Absolute CD4 Count % CD8 Cells % CD19 Cells Absolute CD19 Count Hep Bs Antibody, Quant Hep B Core Total Ab Hepatitis Be Antigen HIV-1 RNA PCR copies/ml HIV-1 RNA (PCR) log 09/09/17 09/09/17 09/09/17 04:34 05:57 12:04 WBC RBC Hgb Hct MCV MCH RDW Plt Count Lymph % (Auto) [place] % (Auto) Lymph # Seg Neutrophils % Seg Neuts % (Manual) Lymphocytes % (Manual) Nucleated RBC % Seg Neutrophils # Man Lymphocytes # (Manual) PT INR Fibrinogen D-Dimer POC ABG pH 7.575 H POC ABG pCO2 POC ABG pO2 63 L Sodium Potassium Chloride Carbon Dioxide BUN Creatinine Glucose POC Glucose 170 H 126 H Lactic Acid Calcium Phosphorus Magnesium AST ALT Lactate Dehydrogenase C-Reactive Protein NT-Pro-B Natriuret Pep Total Protein Albumin Lipase Vancomycin Trough Lymph Enumerat CD4/CD8 % CD4 Cells Absolute CD4 Count % CD8 Cells % CD19 Cells Absolute CD19 Count Hep Bs Antibody, Quant Hep B Core Total Ab Hepatitis Be Antigen HIV-1 RNA PCR copies/ml HIV-1 RNA (PCR) log 09/09/17 09/10/17 09/10/17 17:31 00:02 03:46 WBC RBC Hgb Hct MCV MCH RDW Plt Count Lymph % (Auto) [place] % (Auto) Lymph # Seg Neutrophils % Seg Neuts % (Manual) Lymphocytes % (Manual) Nucleated RBC % Seg Neutrophils # Man Lymphocytes # (Manual) PT INR Fibrinogen D-Dimer POC ABG pH 7.529 H POC ABG pCO2 45.6 H POC ABG pO2 69 L Sodium Potassium Chloride Carbon Dioxide BUN Creatinine Glucose POC Glucose 180 H 190 H Lactic Acid Calcium Phosphorus Magnesium AST ALT Lactate Dehydrogenase C-Reactive Protein NT-Pro-B Natriuret Pep Total Protein Albumin Lipase Vancomycin Trough Lymph Enumerat CD4/CD8 % CD4 Cells Absolute CD4 Count % CD8 Cells % CD19 Cells Absolute CD19 Count Hep Bs Antibody, Quant Hep B Core Total Ab Hepatitis Be Antigen HIV-1 RNA PCR copies/ml HIV-1 RNA (PCR) log 09/10/17 09/10/17 09/10/17 04:44 04:50 06:19 WBC 21.7 H RBC 3.32 L Hgb 9.2 L Hct 28.0 L MCV MCH RDW 15.3 H Plt Count Lymph % (Auto) [place] % (Auto) Lymph # Seg Neutrophils % Seg Neuts % (Manual) 96.0 H Lymphocytes % (Manual) 4.0 L Nucleated RBC % Seg Neutrophils # Man 20.8 H Lymphocytes # (Manual) 0.9 L PT INR Fibrinogen D-Dimer POC ABG pH POC ABG pCO2 POC ABG pO2 Sodium 149 H Potassium Chloride 109.8 H Carbon Dioxide 36 H BUN 34 H Creatinine 0.7 L Glucose 139 H POC Glucose 154 H Lactic Acid Calcium Phosphorus Magnesium AST ALT Lactate Dehydrogenase C-Reactive Protein NT-Pro-B Natriuret Pep Total Protein Albumin Lipase Vancomycin Trough Lymph Enumerat CD4/CD8 % CD4 Cells Absolute CD4 Count % CD8 Cells % CD19 Cells Absolute CD19 Count Hep Bs Antibody, Quant Hep B Core Total Ab Hepatitis Be Antigen HIV-1 RNA PCR copies/ml HIV-1 RNA (PCR) log 09/10/17 09/10/17 09/10/17 11:58 17:15 23:24 WBC RBC Hgb Hct MCV MCH RDW Plt Count Lymph % (Auto) [place] % (Auto) Lymph # Seg Neutrophils % Seg Neuts % (Manual) Lymphocytes % (Manual) Nucleated RBC % Seg Neutrophils # Man Lymphocytes # (Manual) PT INR Fibrinogen D-Dimer POC ABG pH POC ABG pCO2 POC ABG pO2 Sodium Potassium Chloride Carbon Dioxide BUN Creatinine Glucose POC Glucose 204 H 193 H 177 H Lactic Acid Calcium Phosphorus Magnesium AST ALT Lactate Dehydrogenase C-Reactive Protein NT-Pro-B Natriuret Pep Total Protein Albumin Lipase Vancomycin Trough Lymph Enumerat CD4/CD8 % CD4 Cells Absolute CD4 Count % CD8 Cells % CD19 Cells Absolute CD19 Count Hep Bs Antibody, Quant Hep B Core Total Ab Hepatitis Be Antigen HIV-1 RNA PCR copies/ml HIV-1 RNA (PCR) log 09/11/17 09/11/17 09/11/17 04:03 05:39 06:00 WBC 15.9 H RBC 2.93 L Hgb 7.9 L Hct 24.9 L MCV MCH 27 L RDW 15.6 H Plt Count Lymph % (Auto) [place] % (Auto) Lymph # Seg Neutrophils % Seg Neuts % (Manual) 99.0 H Lymphocytes % (Manual) 0 L Nucleated RBC % Seg Neutrophils # Man 15.7 H Lymphocytes # (Manual) 0.0 L PT INR Fibrinogen D-Dimer POC ABG pH 7.572 H POC ABG pCO2 POC ABG pO2 113 H Sodium Potassium Chloride Carbon Dioxide BUN Creatinine Glucose POC Glucose 144 H Lactic Acid Calcium Phosphorus Magnesium AST ALT Lactate Dehydrogenase C-Reactive Protein NT-Pro-B Natriuret Pep Total Protein Albumin Lipase Vancomycin Trough Lymph Enumerat CD4/CD8 % CD4 Cells Absolute CD4 Count % CD8 Cells % CD19 Cells Absolute CD19 Count Hep Bs Antibody, Quant Hep B Core Total Ab Hepatitis Be Antigen HIV-1 RNA PCR copies/ml HIV-1 RNA (PCR) log 09/11/17 09/11/17 09/11/17 06:00 11:48 18:01 WBC RBC Hgb Hct MCV MCH RDW Plt Count Lymph % (Auto) [place] % (Auto) Lymph # Seg Neutrophils % Seg Neuts % (Manual) Lymphocytes % (Manual) Nucleated RBC % Seg Neutrophils # Man Lymphocytes # (Manual) PT INR Fibrinogen D-Dimer POC ABG pH POC ABG pCO2 POC ABG pO2 Sodium Potassium Chloride 108.1 H Carbon Dioxide BUN 30 H Creatinine 0.6 L Glucose 132 H POC Glucose 179 H 135 H Lactic Acid Calcium 7.4 L D Phosphorus Magnesium AST ALT Lactate Dehydrogenase C-Reactive Protein NT-Pro-B Natriuret Pep Total Protein Albumin Lipase Vancomycin Trough Lymph Enumerat CD4/CD8 % CD4 Cells Absolute CD4 Count % CD8 Cells % CD19 Cells Absolute CD19 Count Hep Bs Antibody, Quant Hep B Core Total Ab Hepatitis Be Antigen HIV-1 RNA PCR copies/ml HIV-1 RNA (PCR) log 09/12/17 09/12/17 09/12/17 00:22 04:24 06:41 WBC RBC Hgb Hct MCV MCH RDW Plt Count Lymph % (Auto) [place] % (Auto) Lymph # Seg Neutrophils % Seg Neuts % (Manual) Lymphocytes % (Manual) Nucleated RBC % Seg Neutrophils # Man Lymphocytes # (Manual) PT INR Fibrinogen D-Dimer POC ABG pH POC ABG pCO2 53.5 H POC ABG pO2 79 L Sodium Potassium Chloride Carbon Dioxide BUN Creatinine Glucose POC Glucose 164 H 202 H Lactic Acid Calcium Phosphorus Magnesium AST ALT Lactate Dehydrogenase C-Reactive Protein NT-Pro-B Natriuret Pep Total Protein Albumin Lipase Vancomycin Trough Lymph Enumerat CD4/CD8 % CD4 Cells Absolute CD4 Count % CD8 Cells % CD19 Cells Absolute CD19 Count Hep Bs Antibody, Quant Hep B Core Total Ab Hepatitis Be Antigen HIV-1 RNA PCR copies/ml HIV-1 RNA (PCR) log 09/12/17 09/12/17 09/12/17 12:17 17:28 21:44 WBC RBC Hgb Hct MCV MCH RDW Plt Count Lymph % (Auto) [place] % (Auto) Lymph # Seg Neutrophils % Seg Neuts % (Manual) Lymphocytes % (Manual) Nucleated RBC % Seg Neutrophils # Man Lymphocytes # (Manual) PT INR Fibrinogen D-Dimer POC ABG pH POC ABG pCO2 POC ABG pO2 Sodium Potassium Chloride Carbon Dioxide BUN Creatinine Glucose POC Glucose 157 H 189 H Lactic Acid Calcium Phosphorus Magnesium AST ALT Lactate Dehydrogenase C-Reactive Protein 1.60 H NT-Pro-B Natriuret Pep Total Protein Albumin Lipase Vancomycin Trough Lymph Enumerat CD4/CD8 % CD4 Cells Absolute CD4 Count % CD8 Cells % CD19 Cells Absolute CD19 Count Hep Bs Antibody, Quant Hep B Core Total Ab Hepatitis Be Antigen HIV-1 RNA PCR copies/ml HIV-1 RNA (PCR) log 09/13/17 09/13/17 09/13/17 00:16 03:56 05:47 WBC RBC Hgb Hct MCV MCH RDW Plt Count Lymph % (Auto) [place] % (Auto) Lymph # Seg Neutrophils % Seg Neuts % (Manual) Lymphocytes % (Manual) Nucleated RBC % Seg Neutrophils # Man Lymphocytes # (Manual) PT INR Fibrinogen D-Dimer POC ABG pH 7.457 H POC ABG pCO2 49.9 H POC ABG pO2 Sodium Potassium Chloride Carbon Dioxide BUN Creatinine Glucose POC Glucose 164 H 190 H Lactic Acid Calcium Phosphorus Magnesium AST ALT Lactate Dehydrogenase C-Reactive Protein NT-Pro-B Natriuret Pep Total Protein Albumin Lipase Vancomycin Trough Lymph Enumerat CD4/CD8 % CD4 Cells Absolute CD4 Count % CD8 Cells % CD19 Cells Absolute CD19 Count Hep Bs Antibody, Quant Hep B Core Total Ab Hepatitis Be Antigen HIV-1 RNA PCR copies/ml HIV-1 RNA (PCR) log 09/13/17 09/13/17 09/13/17 09:24 11:48 17:26 WBC RBC Hgb Hct MCV MCH RDW Plt Count Lymph % (Auto) [place] % (Auto) Lymph # Seg Neutrophils % Seg Neuts % (Manual) Lymphocytes % (Manual) Nucleated RBC % Seg Neutrophils # Man Lymphocytes # (Manual) PT INR Fibrinogen D-Dimer POC ABG pH POC ABG pCO2 POC ABG pO2 Sodium Potassium Chloride Carbon Dioxide 31 H BUN 33 H Creatinine 0.6 L Glucose 177 H POC Glucose 196 H 163 H Lactic Acid Calcium Phosphorus Magnesium AST ALT Lactate Dehydrogenase C-Reactive Protein NT-Pro-B Natriuret Pep Total Protein Albumin Lipase Vancomycin Trough Lymph Enumerat CD4/CD8 % CD4 Cells Absolute CD4 Count % CD8 Cells % CD19 Cells Absolute CD19 Count Hep Bs Antibody, Quant Hep B Core Total Ab Hepatitis Be Antigen HIV-1 RNA PCR copies/ml HIV-1 RNA (PCR) log 09/13/17 09/14/17 09/14/17 23:59 05:33 06:14 WBC RBC Hgb Hct MCV MCH RDW Plt Count Lymph % (Auto) [place] % (Auto) Lymph # Seg Neutrophils % Seg Neuts % (Manual) Lymphocytes % (Manual) Nucleated RBC % Seg Neutrophils # Man Lymphocytes # (Manual) PT INR Fibrinogen D-Dimer POC ABG pH POC ABG pCO2 52.0 H POC ABG pO2 Sodium Potassium Chloride Carbon Dioxide BUN Creatinine Glucose POC Glucose 162 H 136 H Lactic Acid Calcium Phosphorus Magnesium AST ALT Lactate Dehydrogenase C-Reactive Protein NT-Pro-B Natriuret Pep Total Protein Albumin Lipase Vancomycin Trough Lymph Enumerat CD4/CD8 % CD4 Cells Absolute CD4 Count % CD8 Cells % CD19 Cells Absolute CD19 Count Hep Bs Antibody, Quant Hep B Core Total Ab Hepatitis Be Antigen HIV-1 RNA PCR copies/ml HIV-1 RNA (PCR) log 09/14/17 09/14/17 09/14/17 12:00 12:15 18:08 WBC RBC Hgb Hct MCV MCH RDW Plt Count Lymph % (Auto) [place] % (Auto) Lymph # Seg Neutrophils % Seg Neuts % (Manual) Lymphocytes % (Manual) Nucleated RBC % Seg Neutrophils # Man Lymphocytes # (Manual) PT INR Fibrinogen D-Dimer POC ABG pH POC ABG pCO2 POC ABG pO2 Sodium Potassium Chloride Carbon Dioxide BUN Creatinine Glucose POC Glucose 154 H 152 H Lactic Acid Calcium Phosphorus Magnesium AST ALT Lactate Dehydrogenase C-Reactive Protein NT-Pro-B Natriuret Pep Total Protein Albumin Lipase Vancomycin Trough 22.0 H Lymph Enumerat CD4/CD8 % CD4 Cells Absolute CD4 Count % CD8 Cells % CD19 Cells Absolute CD19 Count Hep Bs Antibody, Quant Hep B Core Total Ab Hepatitis Be Antigen HIV-1 RNA PCR copies/ml HIV-1 RNA (PCR) log 09/14/17 09/15/17 09/15/17 23:38 09:50 09:50 WBC RBC 3.64 L Hgb 10.3 L Hct 31.1 L MCV MCH RDW 15.8 H Plt Count Lymph % (Auto) [place] % (Auto) Lymph # Seg Neutrophils % Seg Neuts % (Manual) Lymphocytes % (Manual) Nucleated RBC % Seg Neutrophils # Man Lymphocytes # (Manual) PT INR Fibrinogen D-Dimer POC ABG pH POC ABG pCO2 POC ABG pO2 Sodium Potassium Chloride Carbon Dioxide BUN 26 H Creatinine 0.6 L Glucose POC Glucose 110 H Lactic Acid Calcium Phosphorus Magnesium AST 79 H ALT 134 H Lactate Dehydrogenase C-Reactive Protein NT-Pro-B Natriuret Pep Total Protein Albumin 2.1 L Lipase Vancomycin Trough Lymph Enumerat CD4/CD8 % CD4 Cells Absolute CD4 Count % CD8 Cells % CD19 Cells Absolute CD19 Count Hep Bs Antibody, Quant Hep B Core Total Ab Hepatitis Be Antigen HIV-1 RNA PCR copies/ml HIV-1 RNA (PCR) log 09/15/17 09/16/17 09/16/17 09:50 05:46 06:51 WBC RBC 3.59 L Hgb 10.2 L Hct 30.5 L MCV MCH RDW 16.1 H Plt Count Lymph % (Auto) 12.9 L [place] % (Auto) 9.6 H Lymph # 1.0 L Seg Neutrophils % 75.7 H Seg Neuts % (Manual) Lymphocytes % (Manual) Nucleated RBC % Seg Neutrophils # Man Lymphocytes # (Manual) PT INR Fibrinogen D-Dimer POC ABG pH POC ABG pCO2 POC ABG pO2 Sodium Potassium Chloride Carbon Dioxide BUN Creatinine Glucose POC Glucose 132 H Lactic Acid Calcium Phosphorus Magnesium AST ALT Lactate Dehydrogenase C-Reactive Protein NT-Pro-B Natriuret Pep 4222 H Total Protein Albumin Lipase Vancomycin Trough Lymph Enumerat CD4/CD8 % CD4 Cells Absolute CD4 Count % CD8 Cells % CD19 Cells Absolute CD19 Count Hep Bs Antibody, Quant Hep B Core Total Ab Hepatitis Be Antigen HIV-1 RNA PCR copies/ml HIV-1 RNA (PCR) log 09/16/17 06:51 WBC RBC Hgb Hct MCV MCH RDW Plt Count Lymph % (Auto) [place] % (Auto) Lymph # Seg Neutrophils % Seg Neuts % (Manual) Lymphocytes % (Manual) Nucleated RBC % Seg Neutrophils # Man Lymphocytes # (Manual) PT INR Fibrinogen D-Dimer POC ABG pH POC ABG pCO2 POC ABG pO2 Sodium Potassium Chloride Carbon Dioxide BUN 33 H Creatinine 0.7 L Glucose 115 H POC Glucose Lactic Acid Calcium Phosphorus Magnesium AST ALT Lactate Dehydrogenase C-Reactive Protein NT-Pro-B Natriuret Pep Total Protein Albumin Lipase Vancomycin Trough Lymph Enumerat CD4/CD8 % CD4 Cells Absolute CD4 Count % CD8 Cells % CD19 Cells Absolute CD19 Count Hep Bs Antibody, Quant Hep B Core Total Ab Hepatitis Be Antigen HIV-1 RNA PCR copies/ml HIV-1 RNA (PCR) log
--- NOTE | 2017-09-16 15:09 | Progress Note ---
Assessment and Plan Assessment: 1) Severe Sepsis with septic shock versus card shock / third spacing: off pressors, unclear etiology ?pneumonia with effusion. Initial Etiology most likely E coli septicemia and pneumonia. -CRP 22. --> 1.6 -Lactic acid better as of 09/06. 2) E. coli septicemia: unknown source ? Pneumonia ? UTI (UCx negative) ? GI -Blood cultures 09/01 positive 4 of 4 bottles. E coli sens to cefepime/zosyn -Repeat Blood cultures 09/04 negative. -TTE 09/02 no vegetations. 3) Bilateral pneumonia: recently treated at [facility]. -Tracheal asp with normal fiordaliza. - CT chest 09/02 with extensive bilateral pulmonary opacities due to edema vs PNA. Also component of atelectasis. Bilateral pleural effusions. - Legionella and Strep pneumo ag in urine negative - On bactrim and steroids since 09/05. -PJP DFA negative -repeat CT patchy infiltrate in RUL and large right effusion/mod left effusion -Strep pneumoniae neg 4) Acute respiratory failure. Intubated. From pneumonia +/- CHF 5) HIV/AIDS, poorly compliant with HAART for past > 1 year per [facility]; last CD4 per [facility] was 133. [id number] on 08/26/17 -RPR neg -fungal blood cx neg 6) Abnormal CT A/P with numerous liver lesions suspicious for metastatic liver disease, moderate ascites, possible partial vein thrombosis. 7) Encephalopathy. 8) Transaminitis. Improved. ?hep B. ?cirrhosis -Hep B Surface ag positive, HBVe antigen positive, HBV core total ab positive -Hep C negative -CT + Ascitis -US + ? portal venous thrombosis, multiple liver lesions 9) Acute Thrombocytopenia. Improved. 10) Low EF Plan: -GI med consult for elevated LFTs and abnormal liver US ? HBV with cirrhosis ? malignancy -stop vancomycin - day 5 of 5 -continue bactrim DS 1 tab qday for prophylaxis -continue azithromycin 1200 mg qweek for prophylaxis -Will f/u genotype, HLA [id number], quantiferon, hep B viral load - all pending -Will f/u AFB blood cultures - pending I will be rounding on Monday Eduarda Rolon MD Infectious Diseases Specialist [facility] ([facility] M [phone] O [phone] Subjective Date of service: 09/16/17 Principal diagnosis: Septic shock, acute hypoxemic respiratory failure, [place] Interval history: Remains intubated. Afebrile. Off pressors Microbiology: Blood cultures: 09/01 E coli x 4 bottles 09/04 Neg 09/06 neg Fungal blood culture: 09/06 neg Urine cultures: 09/02 Neg Respiratory cultures: TA 09/02 normal fiordaliza Crypto ag in serum negative Current Antimicrobials: Vanco 09/12 Bactrim 09/05- Azithromycin 09/06- Solumedrol 09/05- Previous Antimicrobials: Zosyn 09/02 Azithro 09/02 Meropenem 09/02- Fluconazole 09/03- Cefepime 09/05 Objective - Exam Narrative Exam: General appearance: alert in NAD pleasant debilitated Eyes: anicteric sclerae, moist conjunctivae HENT: Atraumatic; oropharynx clear Neck: Trachea midline; supple, no thyromegaly or lymphadenopathy Lungs: CTA CV: RRR, no murmurs Abdomen: soft NT Extremities: lila arm edema Skin: Normal temperature, turgor and texture; no rash, ulcers or subcutaneous nodules Psych: sedated. Neuro: sedated Lines: right IJ TLC / Quach clear urine - Constitutional Vitals: Vital Signs Temp Pulse Resp BP Pulse Ox 97.5 F L 87 20 92/67 98 09/16/17 08:00 09/16/17 14:22 09/16/17 14:22 09/16/17 14:15 09/16/17 14:15 Temperature -Last 24 Hours Temperature 97.5 F Temperature 96.2 F Temperature 97.4 F Temperature 98.4 F - Labs CBC & Chem 7: 09/16/17 06:51 09/16/17 06:51 Labs: Abnormal lab results 09/16/17 09/16/17 09/16/17 Range/Units 05:46 06:51 06:51 RBC 3.59 L (3.65-5.03) M/mm3 Hgb 10.2 L (11.8-15.2) gm/dl Hct 30.5 L (35.5-45.6) % RDW 16.1 H (13.2-15.2) % Lymph % (Auto) 12.9 L (13.4-35.0) % [place] % (Auto) 9.6 H (0.0-7.3) % Lymph # 1.0 L (1.2-5.4) K/mm3 Seg Neutrophils % 75.7 H (40.0-70.0) % BUN 33 H (9-20) mg/dL Creatinine 0.7 L (0.8-1.5) mg/dL Glucose 115 H (75-100) mg/dL POC Glucose 132 H (70-105)
--- NOTE | 2017-09-16 17:55 | Progress Note ---
Assessment and Plan Assessment and plan: 52-year-old male presents to the emergency department with complaint of shortness of breath and some midsternal right-sided chest discomfort with inspiration that started earlier this afternoon and radiates towards the back. The patient was just discharged from the [facility] a few days ago after treated for bilateral pneumonia. He is on Bactrim and just finished a course of antifungal medication for oral thrush. He does not smoke or use illicit drugs. His physicians are through the [facility]. Patient was recently discharged from a 6 day hospital stay at the [facility]. He denies any leg swelling, nausea, vomiting or fever. Septic shock due to underlying pneumonia Pneumonia bacteria - Ramón neg rods, Gram Negative bacteremia Patient is on Bactrim and azithromycin for prophylaxis Acute hypoxemic respiratory failure intubated 09/01/17, on MV >96 hours, extubated on 09/16 17 Hyperkalemia - corrected Anemia of chronic disease Hypernatremia multiple liver masses suspicious for metastatic disease Portal vein thrombosis? 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 The aggregate critical care time was [34] minutes. This time is in addition to time spent performing reported procedures but includes the following: [x] Data Review and interpretation [x] Patient assessment and monitoring of vital signs [x] Documentation [x] Medication orders and management History Interval history: Was seen and evaluated this morning, patient is off mechanical ventilation. Hospitalist Physical - Physical exam Narrative exam: Patient is intubated and on mechanical ventilation. The patient apperaed emaciated Vital signs as documented. Head exam is unremarkable. No scleral icterus . Neck is without jugular venous distension, thyromegaly, or carotid bruits. Lungs are clear to auscultation. Cardiac exam reveals regular rate and Rhythm. First and second heart sounds normal. No murmurs, rubs or gallops. Abdominal exam reveals normal bowel sounds, no masses, no organomegaly and no aortic enlargement. Extremities are nonedematous and both femoral and pedal pulses are normal. 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 - Constitutional Vitals: Temp Pulse Resp BP Pulse Ox 97.5 F L 89 30 H 92/61 98 09/16/17 08:00 09/16/17 16:15 09/16/17 16:15 09/16/17 16:15 09/16/17 16:15 General appearance: Present: no acute distress, well-nourished, other (intubated ) Results - Labs CBC & Chem 7: 09/16/17 06:51 09/16/17 06:51 Labs: Laboratory Last Values WBC 8.1 K/mm3 (4.5-11.0) 09/16/17 06:51 RBC 3.59 M/mm3 (3.65-5.03) L 09/16/17 06:51 Hgb 10.2 gm/dl (11.8-15.2) L 09/16/17 06:51 Hct 30.5 % (35.5-45.6) L 09/16/17 06:51 MCV 85 fl (84-94) 09/16/17 06:51 MCH 28 pg (28-32) 09/16/17 06:51 MCHC 33 % (32-34) 09/16/17 06:51 RDW 16.1 % (13.2-15.2) H 09/16/17 06:51 Plt Count 262 K/mm3 (140-440) 09/16/17 06:51 Lymph % (Auto) 12.9 % (13.4-35.0) L 09/16/17 06:51 [place] % (Auto) 9.6 % (0.0-7.3) H 09/16/17 06:51 Eos % (Auto) 1.6 % (0.0-4.3) 09/16/17 06:51 Baso % (Auto) 0.2 % (0.0-1.8) 09/16/17 06:51 Lymph # 1.0 K/mm3 (1.2-5.4) L 09/16/17 06:51 [place] # 0.8 K/mm3 (0.0-0.8) 09/16/17 06:51 Eos # 0.1 K/mm3 (0.0-0.4) 09/16/17 06:51 Baso # 0.0 K/mm3 (0.0-0.1) 09/16/17 06:51 Add Manual Diff Complete 09/11/17 06:00 Total Counted 100 09/11/17 06:00 Seg Neutrophils % 75.7 % (40.0-70.0) H 09/16/17 06:51 Seg Neuts % (Manual) 99.0 % (40.0-70.0) H 09/11/17 06:00 Band Neutrophils % 0 % 09/11/17 06:00 Lymphocytes % (Manual) 0 % (13.4-35.0) L 09/11/17 06:00 Reactive Lymphs % (Man) 0 % 09/11/17 06:00 Monocytes % (Manual) 1.0 % (0.0-7.3) 09/11/17 06:00 Eosinophils % (Manual) 0 % (0.0-4.3) 09/11/17 06:00 Basophils % (Manual) 0 % (0.0-1.8) 09/11/17 06:00 Metamyelocytes % 0 % 09/11/17 06:00 Myelocytes % 0 % 09/11/17 06:00 Promyelocytes % 0 % 09/11/17 06:00 Blast Cells % 0 % 09/11/17 06:00 Nucleated RBC % Not Reportable 09/11/17 06:00 Seg Neutrophils # 6.2 K/mm3 (1.8-7.7) 09/16/17 06:51 Seg Neutrophils # Man 15.7 K/mm3 (1.8-7.7) H 09/11/17 06:00 Band Neutrophils # 0.0 K/mm3 09/11/17 06:00 Abs Lymphs (Manual) 1470 cells/uL (850-3900) 09/05/17 14:30 Lymphocytes # (Manual) 0.0 K/mm3 (1.2-5.4) L 09/11/17 06:00 Abs React Lymphs (Man) 0.0 K/mm3 09/11/17 06:00 Monocytes # (Manual) 0.2 K/mm3 (0.0-0.8) 09/11/17 06:00 Eosinophils # (Manual) 0.0 K/mm3 (0.0-0.4) 09/11/17 06:00 Basophils # (Manual) 0.0 K/mm3 (0.0-0.1) 09/11/17 06:00 Metamyelocytes # 0.0 K/mm3 09/11/17 06:00 Myelocytes # 0.0 K/mm3 09/11/17 06:00 Promyelocytes # 0.0 K/mm3 09/11/17 06:00 Blast Cells # 0.0 K/mm3 09/11/17 06:00 WBC Morphology Not Reportable 09/11/17 06:00 Hypersegmented Neuts Not Reportable 09/11/17 06:00 Hyposegmented Neuts Not Reportable 09/11/17 06:00 Hypogranular Neuts Not Reportable 09/11/17 06:00 Smudge Cells Not Reportable 09/11/17 06:00 Toxic Granulation Not Reportable 09/11/17 06:00 Toxic Vacuolation Not Reportable 09/11/17 06:00 Dohle Bodies Not Reportable 09/11/17 06:00 Pelger-Huet Anomaly Not Reportable 09/11/17 06:00 Efren Rods Not Reportable 09/11/17 06:00 Platelet Estimate Cons 09/11/17 06:00 Clumped Platelets Not Reportable 09/11/17 06:00 Plt Clumps, EDTA Not Reportable 09/11/17 06:00 Large Platelets Few 09/11/17 06:00 Giant Platelets Not Reportable 09/11/17 06:00 Platelet Satelliting Not Reportable 09/11/17 06:00 Plt Morphology Comment Not Reportable 09/11/17 06:00 RBC Morphology Not Reportable 09/11/17 06:00 Dimorphic RBCs Not Reportable 09/11/17 06:00 Polychromasia Not Reportable 09/11/17 06:00 Hypochromasia Not Reportable 09/11/17 06:00 Poikilocytosis Not Reportable 09/11/17 06:00 Anisocytosis 1+ 09/11/17 06:00 Microcytosis Not Reportable 09/11/17 06:00 Macrocytosis Not Reportable 09/11/17 06:00 Spherocytes Not Reportable 09/11/17 06:00 Pappenheimer Bodies Not Reportable 09/11/17 06:00 Sickle Cells Not Reportable 09/11/17 06:00 Target Cells Not Reportable 09/11/17 06:00 Tear Drop Cells Not Reportable 09/11/17 06:00 Ovalocytes Not Reportable 09/11/17 06:00 Helmet Cells Not Reportable 09/11/17 06:00 [place] Bodies Not Reportable 09/11/17 06:00 [place] Rings Not Reportable 09/11/17 06:00 [place] Cells Not Reportable 09/11/17 06:00 Bite Cells Not Reportable 09/11/17 06:00 Crenated Cell Not Reportable 09/11/17 06:00 Elliptocytes Not Reportable 09/11/17 06:00 Acanthocytes (Spur) Not Reportable 09/11/17 06:00 Rouleaux Not Reportable 09/11/17 06:00 Hemoglobin C Crystals Not Reportable 09/11/17 06:00 Schistocytes Not Reportable 09/11/17 06:00 Malaria parasites Not Reportable 09/11/17 06:00 Scott Bodies Not Reportable 09/11/17 06:00 Hem Pathologist Commnt No 09/11/17 06:00 PT 14.7 Sec. (12.2-14.9) 09/12/17 10:29 INR 1.09 (0.87-1.13) 09/12/17 10:29 APTT 26.2 Sec. (24.2-36.6) 09/12/17 10:29 Fibrinogen 611 mg/dl (211-480) H 09/04/17 17:23 D-Dimer 976.43 ng/mlDDU (0-234) H 09/01/17 23:27 POC ABG pH 7.415 (7.35-7.45) 09/14/17 06:14 POC ABG pCO2 52.0 (35-45) H 09/14/17 06:14 POC ABG pO2 85 (80-105) 09/14/17 06:14 POC ABG HCO3 33.3 09/14/17 06:14 POC ABG Total CO2 35 09/14/17 06:14 POC ABG O2 Sat 96 09/14/17 06:14 POC ABG Base Excess 9 09/14/17 06:14 FiO2 30 % 09/14/17 06:14 Sodium 140 mmol/L (137-145) 09/16/17 06:51 Potassium 3.6 mmol/L (3.6-5.0) 09/16/17 06:51 Chloride 106.6 mmol/L (98-107) 09/16/17 06:51 Carbon Dioxide 28 mmol/L (22-30) 09/16/17 06:51 Anion Gap 9 mmol/L 09/16/17 06:51 BUN 33 mg/dL (9-20) H 09/16/17 06:51 Creatinine 0.7 mg/dL (0.8-1.5) L 09/16/17 06:51 Estimated GFR > 60 ml/min 09/16/17 06:51 BUN/Creatinine Ratio 47 % 09/16/17 06:51 Glucose 115 mg/dL (75-100) H 09/16/17 06:51 POC Glucose 132 (70-105) H 09/16/17 05:46 Lactic Acid 2.90 mmol/L (0.7-2.0) H* 09/06/17 08:03 Calcium 9.4 mg/dL (8.4-10.2) 09/16/17 06:51 Phosphorus 2.50 mg/dL (2.5-4.5) 09/13/17 09:24 Magnesium 2.00 mg/dL (1.7-2.3) 09/13/17 09:24 Total Bilirubin 0.50 mg/dL (0.1-1.2) 09/15/17 09:50 AST 79 units/L (5-40) H 09/15/17 09:50 ALT 134 units/L (7-56) H 09/15/17 09:50 Alkaline Phosphatase 83 units/L (35-129) 09/15/17 09:50 Lactate Dehydrogenase 571 units/L (91-180) H 09/05/17 10:55 Troponin T < 0.010 ng/mL (0.00-0.029) 09/01/17 23:27 C-Reactive Protein 1.60 mg/dL (0.00-1.30) H 09/12/17 21:44 NT-Pro-B Natriuret Pep 4222 pg/mL (0-900) H 09/15/17 09:50 Total Protein 7.4 g/dL (6.3-8.2) 09/15/17 09:50 Albumin 2.1 g/dL (3.9-5) L 09/15/17 09:50 Albumin/Globulin Ratio 0.4 % 09/15/17 09:50 Lipase 12 units/L (13-60) L 09/04/17 17:23 Vancomycin Trough 22.0 ug/mL (5.0-20.0) H 09/14/17 12:00 Lymph Enumerat CD4/CD8 0.10 (0.86-5.00) L 09/05/17 14:30 % CD3 Cells 75 % (57-85) 09/05/17 14:30 Absolute CD3 Count 1105 cells/uL (840-3060) 09/05/17 14:30 % CD4 Cells 7 % (30-61) L 09/05/17 14:30 Absolute CD4 Count 101 cells/uL (490-1740) L 09/05/17 14:30 % CD8 Cells 66 % (12-42) H 09/05/17 14:30 Absolute CD8 Count 986 cells/uL (180-1170) 09/05/17 14:30 % CD19 Cells 4 % (6-29) L 09/05/17 14:30 Absolute CD19 Count 60 cells/uL (110-660) L 09/05/17 14:30 RPR Nonreactive (Nonreactive) 09/07/17 04:13 Hepatitis A IgM Ab Non-reactive (NonReactive) 09/05/17 10:55 Hep Bs Antigen Reactive (Negative) 09/05/17 10:55 Hep Bs Antibody, Quant <5 mIU/mL (>=10) L 09/07/17 04:13 Hep B Core Total Ab Reactive (Nonreactive) H 09/07/17 04:13 Hep B Core IgM Ab Non-reactive (NonReactive) 09/05/17 10:55 Hepatitis Be Antibody Nonreactive 09/07/17 04:13 Hepatitis Be Antigen Reactive H 09/07/17 04:13 Hepatitis C Antibody Non-reactive (NonReactive) 09/05/17 10:55 HIV-1 RNA PCR copies/ml 1750 Copies/mL H 09/05/17 14:30 HIV-1 RNA (PCR) log 3.24 Log cps/mL H 09/05/17 14:30 HIV-1 Genotyping see below 09/05/17 14:30 HIV 1&2 Antibody Rapid Reactive (Non React) 09/02/17 19:34 HIV P24 Antigen Non react (Non React) 09/02/17 19:34 Urine Legionella Ag Not detected (Not Detected) 09/02/17 13:55 TB (QFT) Gold In Tube Negative (Negative) 09/05/17 14:30 TB Test (QFT) Nil 0.04 IU/mL 09/05/17 14:30 TB Test Mitogen - Nil 2.28 IU/mL 09/05/17 14:30 TB Test Antigen - Nil 0.00 IU/mL 09/05/17 14:30 Miscellaneous Test Flexitest 1 09/06/17 11:30
[2017-09-17] MEDS: DUONEB *Not for PRN Use IH SCH ×4 (02:36→19:58)
[2017-09-17] MEDS: NOVOLOG SUB-Q SCH ×4 (06:07→17:41)
--- NOTE | 2017-09-17 10:08 | Progress Note ---
Assessment and Plan 52 y/o male, vet, admitted with acute respiratory failure thought secondary to pneumonia with lactic acidosis, found to have newly diagnosed HIV being treated empirically for PJP and with systolic heart failure 1. Hypotension. Likely relative given depressed EF. If mental status is normal with MAPS of 55 or greater will wean to off. Will also order cortisol but this is a send out lab at this hospital. Could be adrenal insufficient, especially given underlying diagnosis. 2. Abx therapy per ID 3. Continue daily lasix therapy for volume overload and coreg BID therapy. 4. Strict I/O 5. Continue feeds as tolerated 6. Overall prognosis is guarded to poor. 7. Hopeful to transfer out of ICU in the next 24 hours. Subjective Date of service: 09/17/17 Principal diagnosis: Septic shock, acute hypoxemic respiratory failure, [place] Interval history: patient remains on room air. Placed back on levophed sometime overnight and is currently at 2mcg. Stable. Objective Vital Signs - 12hr 09/16/17 09/16/17 09/16/17 22:15 22:31 22:45 Temperature Pulse Rate 91 H 95 H 86 Pulse Rate [ Anterior Bilateral Throughout] Respiratory 25 H 12 30 H Rate Respiratory Rate [Anterior Bilateral Throughout] Blood Pressure 90/52 90/52 89/57 O2 Sat by Pulse 100 99 100 Oximetry 09/16/17 09/16/17 09/16/17 23:00 23:15 23:30 Temperature Pulse Rate 82 83 81 Pulse Rate [ Anterior Bilateral Throughout] Respiratory 28 H 27 H 27 H Rate Respiratory Rate [Anterior Bilateral Throughout] Blood Pressure 87/56 89/58 90/58 O2 Sat by Pulse 99 100 98 Oximetry 09/16/17 09/16/17 09/17/17 23:45 23:50 00:00 Temperature 97.8 F Pulse Rate 88 82 81 Pulse Rate [ Anterior Bilateral Throughout] Respiratory 21 28 H 29 H Rate Respiratory Rate [Anterior Bilateral Throughout] Blood Pressure 84/57 90/52 88/53 O2 Sat by Pulse 100 100 98 Oximetry 09/17/17 09/17/17 09/17/17 00:13 00:15 00:30 Temperature Pulse Rate 94 H 103 H 82 Pulse Rate [ Anterior Bilateral Throughout] Respiratory 17 35 H 27 H Rate Respiratory Rate [Anterior Bilateral Throughout] Blood Pressure 107/77 90/59 O2 Sat by Pulse 97 100 100 Oximetry 09/17/17 09/17/17 09/17/17 00:45 01:00 01:15 Temperature Pulse Rate 82 82 86 Pulse Rate [ Anterior Bilateral Throughout] Respiratory 27 H 19 33 H Rate Respiratory Rate [Anterior Bilateral Throughout] Blood Pressure 92/60 93/58 96/60 O2 Sat by Pulse 99 99 99 Oximetry 09/17/17 09/17/17 09/17/17 01:30 01:45 02:00 Temperature Pulse Rate 79 86 81 Pulse Rate [ Anterior Bilateral Throughout] Respiratory 26 H 19 27 H Rate Respiratory Rate [Anterior Bilateral Throughout] Blood Pressure 91/56 100/60 95/64 O2 Sat by Pulse 99 100 Oximetry 09/17/17 09/17/17 09/17/17 02:15 02:30 02:36 Temperature Pulse Rate 81 81 Pulse Rate [ 93 H Anterior Bilateral Throughout] Respiratory 26 H 28 H Rate Respiratory 25 H Rate [Anterior Bilateral Throughout] Blood Pressure 99/61 95/63 O2 Sat by Pulse 100 100 Oximetry 09/17/17 09/17/17 09/17/17 02:45 03:00 03:15 Temperature Pulse Rate 90 Pulse Rate [ Anterior Bilateral Throughout] Respiratory 19 Rate Respiratory Rate [Anterior Bilateral Throughout] Blood Pressure 105/70 96/64 101/66 O2 Sat by Pulse 100 100 100 Oximetry 09/17/17 09/17/17 09/17/17 03:30 03:45 04:00 Temperature 97.9 F Pulse Rate 98 H 95 H 87 Pulse Rate [ Anterior Bilateral Throughout] Respiratory Rate Respiratory Rate [Anterior Bilateral Throughout] Blood Pressure 104/77 91/70 94/67 O2 Sat by Pulse 99 Oximetry 09/17/17 09/17/17 09/17/17 04:15 04:30 04:45 Temperature Pulse Rate 87 85 80 Pulse Rate [ Anterior Bilateral Throughout] Respiratory Rate Respiratory Rate [Anterior Bilateral Throughout] Blood Pressure 90/65 101/72 109/72 O2 Sat by Pulse Oximetry 09/17/17 09/17/17 09/17/17 05:01 05:15 05:30 Temperature Pulse Rate 79 78 77 Pulse Rate [ Anterior Bilateral Throughout] Respiratory 26 H 16 Rate Respiratory Rate [Anterior Bilateral Throughout] Blood Pressure 94/58 97/65 109/71 O2 Sat by Pulse 99 99 100 Oximetry 09/17/17 09/17/17 09/17/17 05:45 06:00 07:53 Temperature Pulse Rate 72 73 Pulse Rate [ 81 Anterior Bilateral Throughout] Respiratory 19 20 Rate Respiratory 30 H Rate [Anterior Bilateral Throughout] Blood Pressure 107/67 100/66 O2 Sat by Pulse 100 100 99 Oximetry Constitutional: other (critically ill on vent, sedated) Eyes: non-icteric ENT: other (orally intubated and sedated) Neck: supple Effort: normal Ascultation: Bilateral: diminished breath sounds, rales, other (coarse BS bilaterally) Percussion: Bilateral: not dull Cardiovascular: regular rate and rhythm (sinus tach) Gastrointestinal: hypoactive bowel sounds, soft, non-tender, non-distended Extremities: no cyanosis, no edema, pink and warm Neurologic: normal mental status, non-focal exam, pupils equal and round, CN II- XII normal Psychiatric: other (unable to assess) CBC and BMP: 09/16/17 06:51 09/16/17 06:51 ABG, PT/INR, D-dimer: ABG POC ABG pH 7.415 (7.35-7.45) 09/14/17 06:14 POC ABG pCO2 52.0 (35-45) H 09/14/17 06:14 POC ABG pO2 85 (80-105) 09/14/17 06:14 POC ABG HCO3 33.3 09/14/17 06:14 POC ABG Total CO2 35 09/14/17 06:14 POC ABG O2 Sat 96 09/14/17 06:14 PT/INR, D-dimer PT 14.7 Sec. (12.2-14.9) 09/12/17 10:29 INR 1.09 (0.87-1.13) 09/12/17 10:29 D-Dimer 976.43 ng/mlDDU (0-234) H 09/01/17 23:27 Abnormal lab findings: Abnormal Labs 09/01/17 09/01/17 09/01/17 19:00 19:00 23:27 WBC RBC Hgb 10.9 L Hct 32.3 L MCV 83 L MCH RDW 15.6 H Plt Count Lymph % (Auto) [place] % (Auto) Lymph # Seg Neutrophils % Seg Neuts % (Manual) Lymphocytes % (Manual) Nucleated RBC % Seg Neutrophils # Man Lymphocytes # (Manual) PT INR Fibrinogen D-Dimer 976.43 H POC ABG pH POC ABG pCO2 POC ABG pO2 Sodium 133 L Potassium Chloride 96.4 L Carbon Dioxide BUN Creatinine Glucose 113 H POC Glucose Lactic Acid Calcium Phosphorus Magnesium AST ALT Lactate Dehydrogenase C-Reactive Protein NT-Pro-B Natriuret Pep Total Protein Albumin Lipase Vancomycin Trough Lymph Enumerat CD4/CD8 % CD4 Cells Absolute CD4 Count % CD8 Cells % CD19 Cells Absolute CD19 Count Hep Bs Antibody, Quant Hep B Core Total Ab Hepatitis Be Antigen HIV-1 RNA PCR copies/ml HIV-1 RNA (PCR) log 09/01/17 09/02/17 09/02/17 23:27 01:25 07:36 WBC 2.2 L RBC 3.41 L Hgb 9.6 L Hct 28.9 L MCV MCH RDW 16.0 H Plt Count Lymph % (Auto) [place] % (Auto) 12.6 H Lymph # Seg Neutrophils % 70.4 H Seg Neuts % (Manual) Lymphocytes % (Manual) Nucleated RBC % Seg Neutrophils # Man 1.1 L Lymphocytes # (Manual) 0.6 L PT INR Fibrinogen D-Dimer POC ABG pH POC ABG pCO2 POC ABG pO2 Sodium Potassium Chloride Carbon Dioxide BUN Creatinine Glucose POC Glucose Lactic Acid 3.30 H* 4.10 H* Calcium Phosphorus Magnesium AST ALT Lactate Dehydrogenase C-Reactive Protein NT-Pro-B Natriuret Pep Total Protein Albumin Lipase Vancomycin Trough Lymph Enumerat CD4/CD8 % CD4 Cells Absolute CD4 Count % CD8 Cells % CD19 Cells Absolute CD19 Count Hep Bs Antibody, Quant Hep B Core Total Ab Hepatitis Be Antigen HIV-1 RNA PCR copies/ml HIV-1 RNA (PCR) log 09/02/17 09/02/17 09/02/17 07:36 07:36 07:36 WBC RBC Hgb Hct MCV MCH RDW Plt Count Lymph % (Auto) [place] % (Auto) Lymph # Seg Neutrophils % Seg Neuts % (Manual) Lymphocytes % (Manual) Nucleated RBC % Seg Neutrophils # Man Lymphocytes # (Manual) PT 18.6 H INR 1.46 H Fibrinogen D-Dimer POC ABG pH POC ABG pCO2 POC ABG pO2 Sodium 136 L Potassium Chloride Carbon Dioxide BUN Creatinine Glucose POC Glucose Lactic Acid 3.80 H* Calcium Phosphorus Magnesium 1.20 L AST ALT Lactate Dehydrogenase C-Reactive Protein NT-Pro-B Natriuret Pep Total Protein 9.1 H Albumin 2.0 L Lipase Vancomycin Trough Lymph Enumerat CD4/CD8 % CD4 Cells Absolute CD4 Count % CD8 Cells % CD19 Cells Absolute CD19 Count Hep Bs Antibody, Quant Hep B Core Total Ab Hepatitis Be Antigen HIV-1 RNA PCR copies/ml HIV-1 RNA (PCR) log 09/02/17 09/02/17 09/02/17 08:49 09:40 11:33 WBC RBC Hgb Hct MCV MCH RDW Plt Count Lymph % (Auto) [place] % (Auto) Lymph # Seg Neutrophils % Seg Neuts % (Manual) Lymphocytes % (Manual) Nucleated RBC % Seg Neutrophils # Man Lymphocytes # (Manual) PT INR Fibrinogen D-Dimer POC ABG pH 7.313 L POC ABG pCO2 POC ABG pO2 116 H Sodium Potassium Chloride Carbon Dioxide BUN Creatinine Glucose POC Glucose Lactic Acid 3.60 H* 5.20 H* Calcium Phosphorus Magnesium AST ALT Lactate Dehydrogenase C-Reactive Protein NT-Pro-B Natriuret Pep Total Protein Albumin Lipase Vancomycin Trough Lymph Enumerat CD4/CD8 % CD4 Cells Absolute CD4 Count % CD8 Cells % CD19 Cells Absolute CD19 Count Hep Bs Antibody, Quant Hep B Core Total Ab Hepatitis Be Antigen HIV-1 RNA PCR copies/ml HIV-1 RNA (PCR) log 09/02/17 09/02/17 09/02/17 19:34 23:37 23:40 WBC RBC Hgb Hct MCV MCH RDW Plt Count Lymph % (Auto) [place] % (Auto) Lymph # Seg Neutrophils % Seg Neuts % (Manual) Lymphocytes % (Manual) Nucleated RBC % Seg Neutrophils # Man Lymphocytes # (Manual) PT INR Fibrinogen D-Dimer POC ABG pH POC ABG pCO2 POC ABG pO2 Sodium Potassium Chloride Carbon Dioxide BUN Creatinine Glucose 59 L POC Glucose 47 L Lactic Acid Calcium Phosphorus Magnesium AST ALT Lactate Dehydrogenase C-Reactive Protein 22.30 H NT-Pro-B Natriuret Pep Total Protein Albumin Lipase Vancomycin Trough Lymph Enumerat CD4/CD8 % CD4 Cells Absolute CD4 Count % CD8 Cells % CD19 Cells Absolute CD19 Count Hep Bs Antibody, Quant Hep B Core Total Ab Hepatitis Be Antigen HIV-1 RNA PCR copies/ml HIV-1 RNA (PCR) log 09/03/17 09/03/17 09/03/17 00:06 05:15 05:15 WBC RBC 3.59 L Hgb 10.1 L Hct 31.5 L MCV MCH RDW 18.0 H Plt Count Lymph % (Auto) [place] % (Auto) Lymph # Seg Neutrophils % Seg Neuts % (Manual) Lymphocytes % (Manual) 1.0 L Nucleated RBC % 1.0 H Seg Neutrophils # Man Lymphocytes # (Manual) 0.1 L PT INR Fibrinogen D-Dimer POC ABG pH POC ABG pCO2 POC ABG pO2 Sodium Potassium Chloride Carbon Dioxide BUN Creatinine Glucose POC Glucose 144 H Lactic Acid 9.10 H* Calcium Phosphorus Magnesium AST ALT Lactate Dehydrogenase C-Reactive Protein NT-Pro-B Natriuret Pep Total Protein Albumin Lipase Vancomycin Trough Lymph Enumerat CD4/CD8 % CD4 Cells Absolute CD4 Count % CD8 Cells % CD19 Cells Absolute CD19 Count Hep Bs Antibody, Quant Hep B Core Total Ab Hepatitis Be Antigen HIV-1 RNA PCR copies/ml HIV-1 RNA (PCR) log 09/03/17 09/03/17 09/03/17 05:15 05:55 07:40 WBC RBC Hgb Hct MCV MCH RDW Plt Count Lymph % (Auto) [place] % (Auto) Lymph # Seg Neutrophils % Seg Neuts % (Manual) Lymphocytes % (Manual) Nucleated RBC % Seg Neutrophils # Man Lymphocytes # (Manual) PT INR Fibrinogen D-Dimer POC ABG pH 6.999 L POC ABG pCO2 POC ABG pO2 64 L Sodium Potassium 5.6 H D Chloride 108.4 H Carbon Dioxide 11 L D BUN 30 H Creatinine Glucose 115 H POC Glucose Lactic Acid 9.20 H* Calcium 7.3 L D Phosphorus 6.40 H Magnesium AST 88 H ALT Lactate Dehydrogenase C-Reactive Protein NT-Pro-B Natriuret Pep Total Protein Albumin 1.7 L Lipase Vancomycin Trough Lymph Enumerat CD4/CD8 % CD4 Cells Absolute CD4 Count % CD8 Cells % CD19 Cells Absolute CD19 Count Hep Bs Antibody, Quant Hep B Core Total Ab Hepatitis Be Antigen HIV-1 RNA PCR copies/ml HIV-1 RNA (PCR) log 09/03/17 09/03/17 09/03/17 09:55 12:03 13:17 WBC RBC Hgb Hct MCV MCH RDW Plt Count Lymph % (Auto) [place] % (Auto) Lymph # Seg Neutrophils % Seg Neuts % (Manual) Lymphocytes % (Manual) Nucleated RBC % Seg Neutrophils # Man Lymphocytes # (Manual) PT INR Fibrinogen D-Dimer POC ABG pH POC ABG pCO2 POC ABG pO2 Sodium Potassium Chloride Carbon Dioxide BUN Creatinine Glucose POC Glucose 155 H Lactic Acid 9.50 H* 9.90 H* Calcium Phosphorus Magnesium AST ALT Lactate Dehydrogenase C-Reactive Protein NT-Pro-B Natriuret Pep Total Protein Albumin Lipase Vancomycin Trough Lymph Enumerat CD4/CD8 % CD4 Cells Absolute CD4 Count % CD8 Cells % CD19 Cells Absolute CD19 Count Hep Bs Antibody, Quant Hep B Core Total Ab Hepatitis Be Antigen HIV-1 RNA PCR copies/ml HIV-1 RNA (PCR) log 09/03/17 09/03/17 09/03/17 15:55 17:13 18:02 WBC RBC Hgb Hct MCV MCH RDW Plt Count Lymph % (Auto) [place] % (Auto) Lymph # Seg Neutrophils % Seg Neuts % (Manual) Lymphocytes % (Manual) Nucleated RBC % Seg Neutrophils # Man Lymphocytes # (Manual) PT INR Fibrinogen D-Dimer POC ABG pH POC ABG pCO2 POC ABG pO2 Sodium Potassium Chloride Carbon Dioxide BUN Creatinine Glucose POC Glucose 171 H Lactic Acid 9.60 H* 9.00 H* Calcium Phosphorus Magnesium AST ALT Lactate Dehydrogenase C-Reactive Protein NT-Pro-B Natriuret Pep Total Protein Albumin Lipase Vancomycin Trough Lymph Enumerat CD4/CD8 % CD4 Cells Absolute CD4 Count % CD8 Cells % CD19 Cells Absolute CD19 Count Hep Bs Antibody, Quant Hep B Core Total Ab Hepatitis Be Antigen HIV-1 RNA PCR copies/ml HIV-1 RNA (PCR) log 09/03/17 09/03/17 09/04/17 20:29 23:02 04:00 WBC RBC Hgb Hct MCV MCH RDW Plt Count Lymph % (Auto) [place] % (Auto) Lymph # Seg Neutrophils % Seg Neuts % (Manual) Lymphocytes % (Manual) Nucleated RBC % Seg Neutrophils # Man Lymphocytes # (Manual) PT INR Fibrinogen D-Dimer POC ABG pH POC ABG pCO2 POC ABG pO2 Sodium Potassium Chloride Carbon Dioxide BUN Creatinine Glucose POC Glucose 156 H Lactic Acid 9.00 H* 3.00 H* Calcium Phosphorus Magnesium AST ALT Lactate Dehydrogenase C-Reactive Protein NT-Pro-B Natriuret Pep Total Protein Albumin Lipase Vancomycin Trough Lymph Enumerat CD4/CD8 % CD4 Cells Absolute CD4 Count % CD8 Cells % CD19 Cells Absolute CD19 Count Hep Bs Antibody, Quant Hep B Core Total Ab Hepatitis Be Antigen HIV-1 RNA PCR copies/ml HIV-1 RNA (PCR) log 09/04/17 09/04/17 09/04/17 04:00 04:00 09:00 WBC RBC 3.44 L Hgb 9.6 L Hct 29.0 L MCV MCH RDW 17.4 H Plt Count 124 L Lymph % (Auto) [place] % (Auto) Lymph # Seg Neutrophils % Seg Neuts % (Manual) 91.0 H Lymphocytes % (Manual) 3.0 L Nucleated RBC % 2.0 H Seg Neutrophils # Man 9.9 H Lymphocytes # (Manual) 0.3 L PT 28.4 H INR 2.47 H Fibrinogen D-Dimer POC ABG pH POC ABG pCO2 POC ABG pO2 Sodium Potassium Chloride 110.1 H Carbon Dioxide BUN 29 H Creatinine Glucose 192 H POC Glucose Lactic Acid Calcium 6.8 L Phosphorus Magnesium AST 361 H ALT 315 H Lactate Dehydrogenase C-Reactive Protein NT-Pro-B Natriuret Pep Total Protein Albumin 1.6 L Lipase Vancomycin Trough Lymph Enumerat CD4/CD8 % CD4 Cells Absolute CD4 Count % CD8 Cells % CD19 Cells Absolute CD19 Count Hep Bs Antibody, Quant Hep B Core Total Ab Hepatitis Be Antigen HIV-1 RNA PCR copies/ml HIV-1 RNA (PCR) log 09/04/17 09/04/17 09/04/17 09:00 12:00 17:23 WBC RBC Hgb Hct MCV MCH RDW Plt Count Lymph % (Auto) [place] % (Auto) Lymph # Seg Neutrophils % Seg Neuts % (Manual) Lymphocytes % (Manual) Nucleated RBC % Seg Neutrophils # Man Lymphocytes # (Manual) PT INR Fibrinogen 611 H D-Dimer POC ABG pH POC ABG pCO2 POC ABG pO2 Sodium Potassium Chloride Carbon Dioxide BUN Creatinine Glucose POC Glucose Lactic Acid 2.10 H* 3.40 H* Calcium Phosphorus Magnesium AST ALT Lactate Dehydrogenase C-Reactive Protein NT-Pro-B Natriuret Pep Total Protein Albumin Lipase Vancomycin Trough Lymph Enumerat CD4/CD8 % CD4 Cells Absolute CD4 Count % CD8 Cells % CD19 Cells Absolute CD19 Count Hep Bs Antibody, Quant Hep B Core Total Ab Hepatitis Be Antigen HIV-1 RNA PCR copies/ml HIV-1 RNA (PCR) log 09/04/17 09/04/17 09/04/17 17:23 17:47 22:30 WBC RBC Hgb Hct MCV MCH RDW Plt Count Lymph % (Auto) [place] % (Auto) Lymph # Seg Neutrophils % Seg Neuts % (Manual) Lymphocytes % (Manual) Nucleated RBC % Seg Neutrophils # Man Lymphocytes # (Manual) PT INR Fibrinogen D-Dimer POC ABG pH POC ABG pCO2 POC ABG pO2 Sodium Potassium Chloride Carbon Dioxide BUN Creatinine Glucose POC Glucose 107 H Lactic Acid 4.70 H* Calcium Phosphorus Magnesium AST ALT Lactate Dehydrogenase C-Reactive Protein NT-Pro-B Natriuret Pep Total Protein Albumin Lipase 12 L Vancomycin Trough Lymph Enumerat CD4/CD8 % CD4 Cells Absolute CD4 Count % CD8 Cells % CD19 Cells Absolute CD19 Count Hep Bs Antibody, Quant Hep B Core Total Ab Hepatitis Be Antigen HIV-1 RNA PCR copies/ml HIV-1 RNA (PCR) log 09/04/17 09/05/17 09/05/17 23:08 05:31 06:00 WBC RBC Hgb Hct MCV MCH RDW Plt Count Lymph % (Auto) [place] % (Auto) Lymph # Seg Neutrophils % Seg Neuts % (Manual) Lymphocytes % (Manual) Nucleated RBC % Seg Neutrophils # Man Lymphocytes # (Manual) PT INR Fibrinogen D-Dimer POC ABG pH 7.226 L POC ABG pCO2 65.4 H POC ABG pO2 61 L Sodium Potassium Chloride 112.7 H Carbon Dioxide BUN 31 H Creatinine Glucose 132 H POC Glucose 109 H Lactic Acid Calcium 7.7 L Phosphorus Magnesium AST 834 H ALT 898 H Lactate Dehydrogenase C-Reactive Protein NT-Pro-B Natriuret Pep Total Protein Albumin 1.4 L Lipase Vancomycin Trough Lymph Enumerat CD4/CD8 % CD4 Cells Absolute CD4 Count % CD8 Cells % CD19 Cells Absolute CD19 Count Hep Bs Antibody, Quant Hep B Core Total Ab Hepatitis Be Antigen HIV-1 RNA PCR copies/ml HIV-1 RNA (PCR) log 09/05/17 09/05/17 09/05/17 06:00 06:35 10:26 WBC RBC Hgb Hct MCV MCH RDW Plt Count Lymph % (Auto) [place] % (Auto) Lymph # Seg Neutrophils % Seg Neuts % (Manual) Lymphocytes % (Manual) Nucleated RBC % Seg Neutrophils # Man Lymphocytes # (Manual) PT INR Fibrinogen D-Dimer POC ABG pH 7.311 L POC ABG pCO2 58.5 H POC ABG pO2 213 H Sodium Potassium Chloride Carbon Dioxide BUN Creatinine Glucose POC Glucose 110 H Lactic Acid 4.50 H* Calcium Phosphorus Magnesium AST ALT Lactate Dehydrogenase C-Reactive Protein NT-Pro-B Natriuret Pep Total Protein Albumin Lipase Vancomycin Trough Lymph Enumerat CD4/CD8 % CD4 Cells Absolute CD4 Count % CD8 Cells % CD19 Cells Absolute CD19 Count Hep Bs Antibody, Quant Hep B Core Total Ab Hepatitis Be Antigen HIV-1 RNA PCR copies/ml HIV-1 RNA (PCR) log 09/05/17 09/05/17 09/05/17 10:55 10:55 10:55 WBC 11.1 H RBC 3.38 L Hgb 9.3 L Hct 28.7 L MCV MCH RDW 16.7 H Plt Count 118 L Lymph % (Auto) [place] % (Auto) Lymph # Seg Neutrophils % Seg Neuts % (Manual) 92.0 H Lymphocytes % (Manual) 4.0 L Nucleated RBC % 2.0 H Seg Neutrophils # Man 10.2 H Lymphocytes # (Manual) 0.4 L PT INR Fibrinogen D-Dimer POC ABG pH POC ABG pCO2 POC ABG pO2 Sodium Potassium Chloride Carbon Dioxide BUN Creatinine Glucose POC Glucose Lactic Acid 3.60 H* Calcium Phosphorus Magnesium AST ALT Lactate Dehydrogenase 571 H C-Reactive Protein NT-Pro-B Natriuret Pep Total Protein Albumin Lipase Vancomycin Trough Lymph Enumerat CD4/CD8 % CD4 Cells Absolute CD4 Count % CD8 Cells % CD19 Cells Absolute CD19 Count Hep Bs Antibody, Quant Hep B Core Total Ab Hepatitis Be Antigen HIV-1 RNA PCR copies/ml HIV-1 RNA (PCR) log 09/05/17 09/05/17 09/05/17 12:05 14:30 14:30 WBC RBC Hgb Hct MCV MCH RDW Plt Count Lymph % (Auto) [place] % (Auto) Lymph # Seg Neutrophils % Seg Neuts % (Manual) Lymphocytes % (Manual) Nucleated RBC % Seg Neutrophils # Man Lymphocytes # (Manual) PT INR Fibrinogen D-Dimer POC ABG pH POC ABG pCO2 POC ABG pO2 Sodium Potassium Chloride Carbon Dioxide BUN Creatinine Glucose POC Glucose 148 H Lactic Acid Calcium Phosphorus Magnesium AST ALT Lactate Dehydrogenase C-Reactive Protein NT-Pro-B Natriuret Pep Total Protein Albumin Lipase Vancomycin Trough Lymph Enumerat CD4/CD8 0.10 L % CD4 Cells 7 L Absolute CD4 Count 101 L % CD8 Cells 66 H % CD19 Cells 4 L Absolute CD19 Count 60 L Hep Bs Antibody, Quant Hep B Core Total Ab Hepatitis Be Antigen HIV-1 RNA PCR copies/ml 1750 H HIV-1 RNA (PCR) log 3.24 H 09/05/17 09/05/17 09/05/17 16:30 17:42 19:55 WBC RBC Hgb Hct MCV MCH RDW Plt Count Lymph % (Auto) [place] % (Auto) Lymph # Seg Neutrophils % Seg Neuts % (Manual) Lymphocytes % (Manual) Nucleated RBC % Seg Neutrophils # Man Lymphocytes # (Manual) PT INR Fibrinogen D-Dimer POC ABG pH POC ABG pCO2 POC ABG pO2 Sodium Potassium Chloride Carbon Dioxide BUN Creatinine Glucose POC Glucose 183 H Lactic Acid 3.50 H* 3.60 H* Calcium Phosphorus Magnesium AST ALT Lactate Dehydrogenase C-Reactive Protein NT-Pro-B Natriuret Pep Total Protein Albumin Lipase Vancomycin Trough Lymph Enumerat CD4/CD8 % CD4 Cells Absolute CD4 Count % CD8 Cells % CD19 Cells Absolute CD19 Count Hep Bs Antibody, Quant Hep B Core Total Ab Hepatitis Be Antigen HIV-1 RNA PCR copies/ml HIV-1 RNA (PCR) log 09/05/17 09/06/17 09/06/17 23:29 03:58 05:33 WBC RBC Hgb Hct MCV MCH RDW Plt Count Lymph % (Auto) [place] % (Auto) Lymph # Seg Neutrophils % Seg Neuts % (Manual) Lymphocytes % (Manual) Nucleated RBC % Seg Neutrophils # Man Lymphocytes # (Manual) PT INR Fibrinogen D-Dimer POC ABG pH POC ABG pCO2 62.5 H POC ABG pO2 141 H Sodium Potassium Chloride Carbon Dioxide BUN Creatinine Glucose POC Glucose 203 H 207 H Lactic Acid Calcium Phosphorus Magnesium AST ALT Lactate Dehydrogenase C-Reactive Protein NT-Pro-B Natriuret Pep Total Protein Albumin Lipase Vancomycin Trough Lymph Enumerat CD4/CD8 % CD4 Cells Absolute CD4 Count % CD8 Cells % CD19 Cells Absolute CD19 Count Hep Bs Antibody, Quant Hep B Core Total Ab Hepatitis Be Antigen HIV-1 RNA PCR copies/ml HIV-1 RNA (PCR) log 09/06/17 09/06/17 09/06/17 06:15 06:15 06:15 WBC RBC 3.26 L Hgb 9.0 L Hct 27.5 L MCV MCH RDW 16.7 H Plt Count 104 L Lymph % (Auto) [place] % (Auto) Lymph # Seg Neutrophils % Seg Neuts % (Manual) 97.0 H Lymphocytes % (Manual) 2.0 L Nucleated RBC % Seg Neutrophils # Man 8.1 H Lymphocytes # (Manual) 0.2 L PT INR Fibrinogen D-Dimer POC ABG pH POC ABG pCO2 POC ABG pO2 Sodium 150 H Potassium Chloride 110.9 H Carbon Dioxide 31 H BUN 34 H Creatinine Glucose 207 H POC Glucose Lactic Acid 2.90 H* Calcium 8.2 L Phosphorus Magnesium AST 346 H ALT 634 H Lactate Dehydrogenase C-Reactive Protein NT-Pro-B Natriuret Pep Total Protein Albumin 1.5 L Lipase Vancomycin Trough Lymph Enumerat CD4/CD8 % CD4 Cells Absolute CD4 Count % CD8 Cells % CD19 Cells Absolute CD19 Count Hep Bs Antibody, Quant Hep B Core Total Ab Hepatitis Be Antigen HIV-1 RNA PCR copies/ml HIV-1 RNA (PCR) log 09/06/17 09/06/17 09/06/17 08:03 11:32 18:04 WBC RBC Hgb Hct MCV MCH RDW Plt Count Lymph % (Auto) [place] % (Auto) Lymph # Seg Neutrophils % Seg Neuts % (Manual) Lymphocytes % (Manual) Nucleated RBC % Seg Neutrophils # Man Lymphocytes # (Manual) PT INR Fibrinogen D-Dimer POC ABG pH POC ABG pCO2 POC ABG pO2 Sodium Potassium Chloride Carbon Dioxide BUN Creatinine Glucose POC Glucose 169 H 130 H Lactic Acid 2.90 H* Calcium Phosphorus Magnesium AST ALT Lactate Dehydrogenase C-Reactive Protein NT-Pro-B Natriuret Pep Total Protein Albumin Lipase Vancomycin Trough Lymph Enumerat CD4/CD8 % CD4 Cells Absolute CD4 Count % CD8 Cells % CD19 Cells Absolute CD19 Count Hep Bs Antibody, Quant Hep B Core Total Ab Hepatitis Be Antigen HIV-1 RNA PCR copies/ml HIV-1 RNA (PCR) log 09/07/17 09/07/17 09/07/17 00:03 04:13 04:13 WBC RBC Hgb Hct MCV MCH RDW Plt Count Lymph % (Auto) [place] % (Auto) Lymph # Seg Neutrophils % Seg Neuts % (Manual) Lymphocytes % (Manual) Nucleated RBC % Seg Neutrophils # Man Lymphocytes # (Manual) PT INR Fibrinogen D-Dimer POC ABG pH POC ABG pCO2 POC ABG pO2 Sodium 152 H Potassium 3.5 L Chloride 114.9 H Carbon Dioxide 34 H BUN 35 H Creatinine Glucose 149 H POC Glucose 123 H Lactic Acid Calcium Phosphorus Magnesium AST 150 H ALT 381 H Lactate Dehydrogenase C-Reactive Protein NT-Pro-B Natriuret Pep Total Protein Albumin 1.3 L Lipase Vancomycin Trough Lymph Enumerat CD4/CD8 % CD4 Cells Absolute CD4 Count % CD8 Cells % CD19 Cells Absolute CD19 Count Hep Bs Antibody, Quant Hep B Core Total Ab Reactive H Hepatitis Be Antigen HIV-1 RNA PCR copies/ml HIV-1 RNA (PCR) log 09/07/17 09/07/17 09/07/17 04:13 04:13 04:33 WBC RBC Hgb Hct MCV MCH RDW Plt Count Lymph % (Auto) [place] % (Auto) Lymph # Seg Neutrophils % Seg Neuts % (Manual) Lymphocytes % (Manual) Nucleated RBC % Seg Neutrophils # Man Lymphocytes # (Manual) PT INR Fibrinogen D-Dimer POC ABG pH 7.590 H POC ABG pCO2 POC ABG pO2 179 H Sodium Potassium Chloride Carbon Dioxide BUN Creatinine Glucose POC Glucose Lactic Acid Calcium Phosphorus Magnesium AST ALT Lactate Dehydrogenase C-Reactive Protein NT-Pro-B Natriuret Pep Total Protein Albumin Lipase Vancomycin Trough Lymph Enumerat CD4/CD8 % CD4 Cells Absolute CD4 Count % CD8 Cells % CD19 Cells Absolute CD19 Count Hep Bs Antibody, Quant <5 L Hep B Core Total Ab Hepatitis Be Antigen Reactive H HIV-1 RNA PCR copies/ml HIV-1 RNA (PCR) log 09/07/17 09/07/17 09/07/17 05:05 08:20 11:34 WBC 11.9 H RBC 3.11 L Hgb 8.4 L Hct 26.0 L MCV MCH 27 L RDW 16.2 H Plt Count 109 L Lymph % (Auto) [place] % (Auto) Lymph # Seg Neutrophils % Seg Neuts % (Manual) 93.0 H Lymphocytes % (Manual) 1.0 L Nucleated RBC % Seg Neutrophils # Man 11.1 H Lymphocytes # (Manual) 0.1 L PT INR Fibrinogen D-Dimer POC ABG pH POC ABG pCO2 POC ABG pO2 Sodium Potassium Chloride Carbon Dioxide BUN Creatinine Glucose POC Glucose 168 H 156 H Lactic Acid Calcium Phosphorus Magnesium AST ALT Lactate Dehydrogenase C-Reactive Protein NT-Pro-B Natriuret Pep Total Protein Albumin Lipase Vancomycin Trough Lymph Enumerat CD4/CD8 % CD4 Cells Absolute CD4 Count % CD8 Cells % CD19 Cells Absolute CD19 Count Hep Bs Antibody, Quant Hep B Core Total Ab Hepatitis Be Antigen HIV-1 RNA PCR copies/ml HIV-1 RNA (PCR) log 09/07/17 09/07/17 09/07/17 18:13 20:14 20:14 WBC 14.6 H RBC 3.36 L Hgb 9.2 L Hct 28.3 L MCV MCH 27 L RDW 16.1 H Plt Count 120 L Lymph % (Auto) [place] % (Auto) Lymph # Seg Neutrophils % Seg Neuts % (Manual) 93.0 H Lymphocytes % (Manual) 2.0 L Nucleated RBC % Seg Neutrophils # Man 13.6 H Lymphocytes # (Manual) 0.3 L PT INR Fibrinogen D-Dimer POC ABG pH POC ABG pCO2 POC ABG pO2 Sodium 154 H Potassium 3.4 L Chloride 114.7 H Carbon Dioxide 34 H BUN 37 H Creatinine Glucose 131 H POC Glucose 136 H Lactic Acid Calcium Phosphorus Magnesium AST ALT Lactate Dehydrogenase C-Reactive Protein NT-Pro-B Natriuret Pep Total Protein Albumin Lipase Vancomycin Trough Lymph Enumerat CD4/CD8 % CD4 Cells Absolute CD4 Count % CD8 Cells % CD19 Cells Absolute CD19 Count Hep Bs Antibody, Quant Hep B Core Total Ab Hepatitis Be Antigen HIV-1 RNA PCR copies/ml HIV-1 RNA (PCR) log 09/08/17 09/08/17 09/08/17 05:15 05:30 05:30 WBC 13.6 H RBC 3.29 L Hgb 9.1 L Hct 27.4 L MCV 83 L MCH RDW 15.8 H Plt Count 111 L Lymph % (Auto) [place] % (Auto) Lymph # Seg Neutrophils % Seg Neuts % (Manual) 94.0 H Lymphocytes % (Manual) 4.0 L Nucleated RBC % 1.0 H Seg Neutrophils # Man 12.8 H Lymphocytes # (Manual) 0.5 L PT INR Fibrinogen D-Dimer POC ABG pH 7.460 H POC ABG pCO2 54.7 H POC ABG pO2 209 H Sodium Potassium Chloride Carbon Dioxide BUN Creatinine Glucose POC Glucose Lactic Acid Calcium Phosphorus Magnesium AST ALT Lactate Dehydrogenase C-Reactive Protein 8.70 H NT-Pro-B Natriuret Pep Total Protein Albumin Lipase Vancomycin Trough Lymph Enumerat CD4/CD8 % CD4 Cells Absolute CD4 Count % CD8 Cells % CD19 Cells Absolute CD19 Count Hep Bs Antibody, Quant Hep B Core Total Ab Hepatitis Be Antigen HIV-1 RNA PCR copies/ml HIV-1 RNA (PCR) log 09/08/17 09/08/17 09/08/17 05:30 12:24 17:19 WBC RBC Hgb Hct MCV MCH RDW Plt Count Lymph % (Auto) [place] % (Auto) Lymph # Seg Neutrophils % Seg Neuts % (Manual) Lymphocytes % (Manual) Nucleated RBC % Seg Neutrophils # Man Lymphocytes # (Manual) PT INR Fibrinogen D-Dimer POC ABG pH POC ABG pCO2 POC ABG pO2 Sodium 154 H Potassium Chloride 114.3 H Carbon Dioxide 36 H BUN 39 H Creatinine Glucose 163 H POC Glucose 181 H 170 H Lactic Acid Calcium Phosphorus Magnesium AST ALT Lactate Dehydrogenase C-Reactive Protein NT-Pro-B Natriuret Pep Total Protein Albumin Lipase Vancomycin Trough Lymph Enumerat CD4/CD8 % CD4 Cells Absolute CD4 Count % CD8 Cells % CD19 Cells Absolute CD19 Count Hep Bs Antibody, Quant Hep B Core Total Ab Hepatitis Be Antigen HIV-1 RNA PCR copies/ml HIV-1 RNA (PCR) log 09/08/17 09/09/17 09/09/17 23:51 04:00 04:00 WBC 20.1 H RBC 3.37 L Hgb 9.2 L Hct 28.0 L MCV 83 L MCH 27 L RDW 15.7 H Plt Count 123 L Lymph % (Auto) [place] % (Auto) Lymph # Seg Neutrophils % Seg Neuts % (Manual) 86.0 H Lymphocytes % (Manual) 9.0 L Nucleated RBC % Seg Neutrophils # Man 17.3 H Lymphocytes # (Manual) PT INR Fibrinogen D-Dimer POC ABG pH POC ABG pCO2 POC ABG pO2 Sodium 150 H Potassium 3.0 L Chloride 107.7 H Carbon Dioxide 35 H BUN 39 H Creatinine Glucose 174 H POC Glucose 185 H Lactic Acid Calcium Phosphorus Magnesium AST ALT Lactate Dehydrogenase C-Reactive Protein NT-Pro-B Natriuret Pep Total Protein Albumin Lipase Vancomycin Trough Lymph Enumerat CD4/CD8 % CD4 Cells Absolute CD4 Count % CD8 Cells % CD19 Cells Absolute CD19 Count Hep Bs Antibody, Quant Hep B Core Total Ab Hepatitis Be Antigen HIV-1 RNA PCR copies/ml HIV-1 RNA (PCR) log 09/09/17 09/09/17 09/09/17 04:34 05:57 12:04 WBC RBC Hgb Hct MCV MCH RDW Plt Count Lymph % (Auto) [place] % (Auto) Lymph # Seg Neutrophils % Seg Neuts % (Manual) Lymphocytes % (Manual) Nucleated RBC % Seg Neutrophils # Man Lymphocytes # (Manual) PT INR Fibrinogen D-Dimer POC ABG pH 7.575 H POC ABG pCO2 POC ABG pO2 63 L Sodium Potassium Chloride Carbon Dioxide BUN Creatinine Glucose POC Glucose 170 H 126 H Lactic Acid Calcium Phosphorus Magnesium AST ALT Lactate Dehydrogenase C-Reactive Protein NT-Pro-B Natriuret Pep Total Protein Albumin Lipase Vancomycin Trough Lymph Enumerat CD4/CD8 % CD4 Cells Absolute CD4 Count % CD8 Cells % CD19 Cells Absolute CD19 Count Hep Bs Antibody, Quant Hep B Core Total Ab Hepatitis Be Antigen HIV-1 RNA PCR copies/ml HIV-1 RNA (PCR) log 09/09/17 09/10/17 09/10/17 17:31 00:02 03:46 WBC RBC Hgb Hct MCV MCH RDW Plt Count Lymph % (Auto) [place] % (Auto) Lymph # Seg Neutrophils % Seg Neuts % (Manual) Lymphocytes % (Manual) Nucleated RBC % Seg Neutrophils # Man Lymphocytes # (Manual) PT INR Fibrinogen D-Dimer POC ABG pH 7.529 H POC ABG pCO2 45.6 H POC ABG pO2 69 L Sodium Potassium Chloride Carbon Dioxide BUN Creatinine Glucose POC Glucose 180 H 190 H Lactic Acid Calcium Phosphorus Magnesium AST ALT Lactate Dehydrogenase C-Reactive Protein NT-Pro-B Natriuret Pep Total Protein Albumin Lipase Vancomycin Trough Lymph Enumerat CD4/CD8 % CD4 Cells Absolute CD4 Count % CD8 Cells % CD19 Cells Absolute CD19 Count Hep Bs Antibody, Quant Hep B Core Total Ab Hepatitis Be Antigen HIV-1 RNA PCR copies/ml HIV-1 RNA (PCR) log 09/10/17 09/10/17 09/10/17 04:44 04:50 06:19 WBC 21.7 H RBC 3.32 L Hgb 9.2 L Hct 28.0 L MCV MCH RDW 15.3 H Plt Count Lymph % (Auto) [place] % (Auto) Lymph # Seg Neutrophils % Seg Neuts % (Manual) 96.0 H Lymphocytes % (Manual) 4.0 L Nucleated RBC % Seg Neutrophils # Man 20.8 H Lymphocytes # (Manual) 0.9 L PT INR Fibrinogen D-Dimer POC ABG pH POC ABG pCO2 POC ABG pO2 Sodium 149 H Potassium Chloride 109.8 H Carbon Dioxide 36 H BUN 34 H Creatinine 0.7 L Glucose 139 H POC Glucose 154 H Lactic Acid Calcium Phosphorus Magnesium AST ALT Lactate Dehydrogenase C-Reactive Protein NT-Pro-B Natriuret Pep Total Protein Albumin Lipase Vancomycin Trough Lymph Enumerat CD4/CD8 % CD4 Cells Absolute CD4 Count % CD8 Cells % CD19 Cells Absolute CD19 Count Hep Bs Antibody, Quant Hep B Core Total Ab Hepatitis Be Antigen HIV-1 RNA PCR copies/ml HIV-1 RNA (PCR) log 09/10/17 09/10/17 09/10/17 11:58 17:15 23:24 WBC RBC Hgb Hct MCV MCH RDW Plt Count Lymph % (Auto) [place] % (Auto) Lymph # Seg Neutrophils % Seg Neuts % (Manual) Lymphocytes % (Manual) Nucleated RBC % Seg Neutrophils # Man Lymphocytes # (Manual) PT INR Fibrinogen D-Dimer POC ABG pH POC ABG pCO2 POC ABG pO2 Sodium Potassium Chloride Carbon Dioxide BUN Creatinine Glucose POC Glucose 204 H 193 H 177 H Lactic Acid Calcium Phosphorus Magnesium AST ALT Lactate Dehydrogenase C-Reactive Protein NT-Pro-B Natriuret Pep Total Protein Albumin Lipase Vancomycin Trough Lymph Enumerat CD4/CD8 % CD4 Cells Absolute CD4 Count % CD8 Cells % CD19 Cells Absolute CD19 Count Hep Bs Antibody, Quant Hep B Core Total Ab Hepatitis Be Antigen HIV-1 RNA PCR copies/ml HIV-1 RNA (PCR) log 09/11/17 09/11/17 09/11/17 04:03 05:39 06:00 WBC 15.9 H RBC 2.93 L Hgb 7.9 L Hct 24.9 L MCV MCH 27 L RDW 15.6 H Plt Count Lymph % (Auto) [place] % (Auto) Lymph # Seg Neutrophils % Seg Neuts % (Manual) 99.0 H Lymphocytes % (Manual) 0 L Nucleated RBC % Seg Neutrophils # Man 15.7 H Lymphocytes # (Manual) 0.0 L PT INR Fibrinogen D-Dimer POC ABG pH 7.572 H POC ABG pCO2 POC ABG pO2 113 H Sodium Potassium Chloride Carbon Dioxide BUN Creatinine Glucose POC Glucose 144 H Lactic Acid Calcium Phosphorus Magnesium AST ALT Lactate Dehydrogenase C-Reactive Protein NT-Pro-B Natriuret Pep Total Protein Albumin Lipase Vancomycin Trough Lymph Enumerat CD4/CD8 % CD4 Cells Absolute CD4 Count % CD8 Cells % CD19 Cells Absolute CD19 Count Hep Bs Antibody, Quant Hep B Core Total Ab Hepatitis Be Antigen HIV-1 RNA PCR copies/ml HIV-1 RNA (PCR) log 09/11/17 09/11/17 09/11/17 06:00 11:48 18:01 WBC RBC Hgb Hct MCV MCH RDW Plt Count Lymph % (Auto) [place] % (Auto) Lymph # Seg Neutrophils % Seg Neuts % (Manual) Lymphocytes % (Manual) Nucleated RBC % Seg Neutrophils # Man Lymphocytes # (Manual) PT INR Fibrinogen D-Dimer POC ABG pH POC ABG pCO2 POC ABG pO2 Sodium Potassium Chloride 108.1 H Carbon Dioxide BUN 30 H Creatinine 0.6 L Glucose 132 H POC Glucose 179 H 135 H Lactic Acid Calcium 7.4 L D Phosphorus Magnesium AST ALT Lactate Dehydrogenase C-Reactive Protein NT-Pro-B Natriuret Pep Total Protein Albumin Lipase Vancomycin Trough Lymph Enumerat CD4/CD8 % CD4 Cells Absolute CD4 Count % CD8 Cells % CD19 Cells Absolute CD19 Count Hep Bs Antibody, Quant Hep B Core Total Ab Hepatitis Be Antigen HIV-1 RNA PCR copies/ml HIV-1 RNA (PCR) log 09/12/17 09/12/17 09/12/17 00:22 04:24 06:41 WBC RBC Hgb Hct MCV MCH RDW Plt Count Lymph % (Auto) [place] % (Auto) Lymph # Seg Neutrophils % Seg Neuts % (Manual) Lymphocytes % (Manual) Nucleated RBC % Seg Neutrophils # Man Lymphocytes # (Manual) PT INR Fibrinogen D-Dimer POC ABG pH POC ABG pCO2 53.5 H POC ABG pO2 79 L Sodium Potassium Chloride Carbon Dioxide BUN Creatinine Glucose POC Glucose 164 H 202 H Lactic Acid Calcium Phosphorus Magnesium AST ALT Lactate Dehydrogenase C-Reactive Protein NT-Pro-B Natriuret Pep Total Protein Albumin Lipase Vancomycin Trough Lymph Enumerat CD4/CD8 % CD4 Cells Absolute CD4 Count % CD8 Cells % CD19 Cells Absolute CD19 Count Hep Bs Antibody, Quant Hep B Core Total Ab Hepatitis Be Antigen HIV-1 RNA PCR copies/ml HIV-1 RNA (PCR) log 09/12/17 09/12/17 09/12/17 12:17 17:28 21:44 WBC RBC Hgb Hct MCV MCH RDW Plt Count Lymph % (Auto) [place] % (Auto) Lymph # Seg Neutrophils % Seg Neuts % (Manual) Lymphocytes % (Manual) Nucleated RBC % Seg Neutrophils # Man Lymphocytes # (Manual) PT INR Fibrinogen D-Dimer POC ABG pH POC ABG pCO2 POC ABG pO2 Sodium Potassium Chloride Carbon Dioxide BUN Creatinine Glucose POC Glucose 157 H 189 H Lactic Acid Calcium Phosphorus Magnesium AST ALT Lactate Dehydrogenase C-Reactive Protein 1.60 H NT-Pro-B Natriuret Pep Total Protein Albumin Lipase Vancomycin Trough Lymph Enumerat CD4/CD8 % CD4 Cells Absolute CD4 Count % CD8 Cells % CD19 Cells Absolute CD19 Count Hep Bs Antibody, Quant Hep B Core Total Ab Hepatitis Be Antigen HIV-1 RNA PCR copies/ml HIV-1 RNA (PCR) log 09/13/17 09/13/17 09/13/17 00:16 03:56 05:47 WBC RBC Hgb Hct MCV MCH RDW Plt Count Lymph % (Auto) [place] % (Auto) Lymph # Seg Neutrophils % Seg Neuts % (Manual) Lymphocytes % (Manual) Nucleated RBC % Seg Neutrophils # Man Lymphocytes # (Manual) PT INR Fibrinogen D-Dimer POC ABG pH 7.457 H POC ABG pCO2 49.9 H POC ABG pO2 Sodium Potassium Chloride Carbon Dioxide BUN Creatinine Glucose POC Glucose 164 H 190 H Lactic Acid Calcium Phosphorus Magnesium AST ALT Lactate Dehydrogenase C-Reactive Protein NT-Pro-B Natriuret Pep Total Protein Albumin Lipase Vancomycin Trough Lymph Enumerat CD4/CD8 % CD4 Cells Absolute CD4 Count % CD8 Cells % CD19 Cells Absolute CD19 Count Hep Bs Antibody, Quant Hep B Core Total Ab Hepatitis Be Antigen HIV-1 RNA PCR copies/ml HIV-1 RNA (PCR) log 09/13/17 09/13/17 09/13/17 09:24 11:48 17:26 WBC RBC Hgb Hct MCV MCH RDW Plt Count Lymph % (Auto) [place] % (Auto) Lymph # Seg Neutrophils % Seg Neuts % (Manual) Lymphocytes % (Manual) Nucleated RBC % Seg Neutrophils # Man Lymphocytes # (Manual) PT INR Fibrinogen D-Dimer POC ABG pH POC ABG pCO2 POC ABG pO2 Sodium Potassium Chloride Carbon Dioxide 31 H BUN 33 H Creatinine 0.6 L Glucose 177 H POC Glucose 196 H 163 H Lactic Acid Calcium Phosphorus Magnesium AST ALT Lactate Dehydrogenase C-Reactive Protein NT-Pro-B Natriuret Pep Total Protein Albumin Lipase Vancomycin Trough Lymph Enumerat CD4/CD8 % CD4 Cells Absolute CD4 Count % CD8 Cells % CD19 Cells Absolute CD19 Count Hep Bs Antibody, Quant Hep B Core Total Ab Hepatitis Be Antigen HIV-1 RNA PCR copies/ml HIV-1 RNA (PCR) log 09/13/17 09/14/17 09/14/17 23:59 05:33 06:14 WBC RBC Hgb Hct MCV MCH RDW Plt Count Lymph % (Auto) [place] % (Auto) Lymph # Seg Neutrophils % Seg Neuts % (Manual) Lymphocytes % (Manual) Nucleated RBC % Seg Neutrophils # Man Lymphocytes # (Manual) PT INR Fibrinogen D-Dimer POC ABG pH POC ABG pCO2 52.0 H POC ABG pO2 Sodium Potassium Chloride Carbon Dioxide BUN Creatinine Glucose POC Glucose 162 H 136 H Lactic Acid Calcium Phosphorus Magnesium AST ALT Lactate Dehydrogenase C-Reactive Protein NT-Pro-B Natriuret Pep Total Protein Albumin Lipase Vancomycin Trough Lymph Enumerat CD4/CD8 % CD4 Cells Absolute CD4 Count % CD8 Cells % CD19 Cells Absolute CD19 Count Hep Bs Antibody, Quant Hep B Core Total Ab Hepatitis Be Antigen HIV-1 RNA PCR copies/ml HIV-1 RNA (PCR) log 09/14/17 09/14/17 09/14/17 12:00 12:15 18:08 WBC RBC Hgb Hct MCV MCH RDW Plt Count Lymph % (Auto) [place] % (Auto) Lymph # Seg Neutrophils % Seg Neuts % (Manual) Lymphocytes % (Manual) Nucleated RBC % Seg Neutrophils # Man Lymphocytes # (Manual) PT INR Fibrinogen D-Dimer POC ABG pH POC ABG pCO2 POC ABG pO2 Sodium Potassium Chloride Carbon Dioxide BUN Creatinine Glucose POC Glucose 154 H 152 H Lactic Acid Calcium Phosphorus Magnesium AST ALT Lactate Dehydrogenase C-Reactive Protein NT-Pro-B Natriuret Pep Total Protein Albumin Lipase Vancomycin Trough 22.0 H Lymph Enumerat CD4/CD8 % CD4 Cells Absolute CD4 Count % CD8 Cells % CD19 Cells Absolute CD19 Count Hep Bs Antibody, Quant Hep B Core Total Ab Hepatitis Be Antigen HIV-1 RNA PCR copies/ml HIV-1 RNA (PCR) log 09/14/17 09/15/17 09/15/17 23:38 09:50 09:50 WBC RBC 3.64 L Hgb 10.3 L Hct 31.1 L MCV MCH RDW 15.8 H Plt Count Lymph % (Auto) [place] % (Auto) Lymph # Seg Neutrophils % Seg Neuts % (Manual) Lymphocytes % (Manual) Nucleated RBC % Seg Neutrophils # Man Lymphocytes # (Manual) PT INR Fibrinogen D-Dimer POC ABG pH POC ABG pCO2 POC ABG pO2 Sodium Potassium Chloride Carbon Dioxide BUN 26 H Creatinine 0.6 L Glucose POC Glucose 110 H Lactic Acid Calcium Phosphorus Magnesium AST 79 H ALT 134 H Lactate Dehydrogenase C-Reactive Protein NT-Pro-B Natriuret Pep Total Protein Albumin 2.1 L Lipase Vancomycin Trough Lymph Enumerat CD4/CD8 % CD4 Cells Absolute CD4 Count % CD8 Cells % CD19 Cells Absolute CD19 Count Hep Bs Antibody, Quant Hep B Core Total Ab Hepatitis Be Antigen HIV-1 RNA PCR copies/ml HIV-1 RNA (PCR) log 09/15/17 09/16/17 09/16/17 09:50 05:46 06:51 WBC RBC 3.59 L Hgb 10.2 L Hct 30.5 L MCV MCH RDW 16.1 H Plt Count Lymph % (Auto) 12.9 L [place] % (Auto) 9.6 H Lymph # 1.0 L Seg Neutrophils % 75.7 H Seg Neuts % (Manual) Lymphocytes % (Manual) Nucleated RBC % Seg Neutrophils # Man Lymphocytes # (Manual) PT INR Fibrinogen D-Dimer POC ABG pH POC ABG pCO2 POC ABG pO2 Sodium Potassium Chloride Carbon Dioxide BUN Creatinine Glucose POC Glucose 132 H Lactic Acid Calcium Phosphorus Magnesium AST ALT Lactate Dehydrogenase C-Reactive Protein NT-Pro-B Natriuret Pep 4222 H Total Protein Albumin Lipase Vancomycin Trough Lymph Enumerat CD4/CD8 % CD4 Cells Absolute CD4 Count % CD8 Cells % CD19 Cells Absolute CD19 Count Hep Bs Antibody, Quant Hep B Core Total Ab Hepatitis Be Antigen HIV-1 RNA PCR copies/ml HIV-1 RNA (PCR) log 09/16/17 09/16/17 09/16/17 06:51 11:53 17:43 WBC RBC Hgb Hct MCV MCH RDW Plt Count Lymph % (Auto) [place] % (Auto) Lymph # Seg Neutrophils % Seg Neuts % (Manual) Lymphocytes % (Manual) Nucleated RBC % Seg Neutrophils # Man Lymphocytes # (Manual) PT INR Fibrinogen D-Dimer POC ABG pH POC ABG pCO2 POC ABG pO2 Sodium Potassium Chloride Carbon Dioxide BUN 33 H Creatinine 0.7 L Glucose 115 H POC Glucose 107 H 189 H Lactic Acid Calcium Phosphorus Magnesium AST ALT Lactate Dehydrogenase C-Reactive Protein NT-Pro-B Natriuret Pep Total Protein Albumin Lipase Vancomycin Trough Lymph Enumerat CD4/CD8 % CD4 Cells Absolute CD4 Count % CD8 Cells % CD19 Cells Absolute CD19 Count Hep Bs Antibody, Quant Hep B Core Total Ab Hepatitis Be Antigen HIV-1 RNA PCR copies/ml HIV-1 RNA (PCR) log 09/17/17 09/17/17 00:00 06:03 WBC RBC Hgb Hct MCV MCH RDW Plt Count Lymph % (Auto) [place] % (Auto) Lymph # Seg Neutrophils % Seg Neuts % (Manual) Lymphocytes % (Manual) Nucleated RBC % Seg Neutrophils # Man Lymphocytes # (Manual) PT INR Fibrinogen D-Dimer POC ABG pH POC ABG pCO2 POC ABG pO2 Sodium Potassium Chloride Carbon Dioxide BUN Creatinine Glucose POC Glucose 149 H 126 H Lactic Acid Calcium Phosphorus Magnesium AST ALT Lactate Dehydrogenase C-Reactive Protein NT-Pro-B Natriuret Pep Total Protein Albumin Lipase Vancomycin Trough Lymph Enumerat CD4/CD8 % CD4 Cells Absolute CD4 Count % CD8 Cells % CD19 Cells Absolute CD19 Count Hep Bs Antibody, Quant Hep B Core Total Ab Hepatitis Be Antigen HIV-1 RNA PCR copies/ml HIV-1 RNA (PCR) log
[2017-09-17] MEDS: ZITHROMAX PO SCH (10:32)
[2017-09-17] MEDS: PEPCID PO SCH ×2 (10:32→21:20)
[2017-09-17] MEDS: LOVENOX SUB-Q SCH (10:32)
[2017-09-17] MEDS: LASIX IV SCH (10:32)
[2017-09-17] MEDS: COREG PO SCH ×2 (10:33→21:19)
[2017-09-17] MEDS: BACTRIM DS PO SCH (10:33)
--- NOTE | 2017-09-17 13:48 | Event Note ---
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
--- NOTE | 2017-09-17 14:39 | Progress Note ---
Assessment and Plan Assessment and plan: 52-year-old male presents to the emergency department with complaint of shortness of breath and some midsternal right-sided chest discomfort with inspiration that started earlier this afternoon and radiates towards the back. The patient was just discharged from the [facility] a few days ago after treated for bilateral pneumonia. He is on Bactrim and just finished a course of antifungal medication for oral thrush. He does not smoke or use illicit drugs. His physicians are through the [facility]. Patient was recently discharged from a 6 day hospital stay at the [facility]. He denies any leg swelling, nausea, vomiting or fever. Septic shock due to underlying pneumonia - Patient is off pressors Pneumonia bacteria - Ramón neg rods, Gram Negative bacteremia Patient is on Bactrim and azithromycin for prophylaxis Acute hypoxemic respiratory failure intubated 09/01/17, on MV >96 hours, extubated on 09/16 17 Hyperkalemia - corrected Anemia of chronic disease - Will follow closely Hypernatremia - resolved multiple liver masses suspicious for metastatic disease - GI consulted and said it is likely hemangioma Portal vein thrombosis? not clearly seen on US, will need dedicated study when clinically more stable HIV- ID following hypokalemia - Repleted Plan - - DVT GI prophylaxis with Lovenox and Pepcid - Monitor patient in the ICU today and possible transfer to the floor in the next 24hrs. The high probability of a clinically significant, sudden or life threatening deterioration of the [cv, renal, pulmonary] system(s) required my full and direct attention, intervention and personal management. The aggregate critical care time was [34] minutes. This time is in addition to time spent performing reported procedures but includes the following: [x] Data Review and interpretation [x] Patient assessment and monitoring of vital signs [x] Documentation [x] Medication orders and management History Interval history: Was seen and evaluated this morning, patient is off mechanical ventilation. patient tries to talk but couldn't hear. Hospitalist Physical - Physical exam Narrative exam: Patient is off mechanical ventilation. The patient apperaed emaciated Vital signs as documented. Head exam is unremarkable. No scleral icterus . Neck is without jugular venous distension, thyromegaly, or carotid bruits. Lungs are clear to auscultation. Cardiac exam reveals regular rate and Rhythm. First and second heart sounds normal. No murmurs, rubs or gallops. Abdominal exam reveals normal bowel sounds, no masses, no organomegaly and no aortic enlargement. Extremities are nonedematous and both femoral and pedal pulses are normal. 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 - Constitutional Vitals: Temp Pulse Resp BP Pulse Ox 98.2 F 96 H 26 H 87/60 99 09/17/17 12:00 09/17/17 12:00 09/17/17 12:00 09/17/17 12:00 09/17/17 11:45 General appearance: Present: no acute distress, well-nourished, other (intubated ) Results - Labs CBC & Chem 7: 09/16/17 06:51 09/16/17 06:51 Labs: Laboratory Last Values WBC 8.1 K/mm3 (4.5-11.0) 09/16/17 06:51 RBC 3.59 M/mm3 (3.65-5.03) L 09/16/17 06:51 Hgb 10.2 gm/dl (11.8-15.2) L 09/16/17 06:51 Hct 30.5 % (35.5-45.6) L 09/16/17 06:51 MCV 85 fl (84-94) 09/16/17 06:51 MCH 28 pg (28-32) 09/16/17 06:51 MCHC 33 % (32-34) 09/16/17 06:51 RDW 16.1 % (13.2-15.2) H 09/16/17 06:51 Plt Count 262 K/mm3 (140-440) 09/16/17 06:51 Lymph % (Auto) 12.9 % (13.4-35.0) L 09/16/17 06:51 [place]itt % (Auto) 9.6 % (0.0-7.3) H 09/16/17 06:51 Eos % (Auto) 1.6 % (0.0-4.3) 09/16/17 06:51 Baso % (Auto) 0.2 % (0.0-1.8) 09/16/17 06:51 Lymph # 1.0 K/mm3 (1.2-5.4) L 09/16/17 06:51 [place]itt # 0.8 K/mm3 (0.0-0.8) 09/16/17 06:51 Eos # 0.1 K/mm3 (0.0-0.4) 09/16/17 06:51 Baso # 0.0 K/mm3 (0.0-0.1) 09/16/17 06:51 Add Manual Diff Complete 09/11/17 06:00 Total Counted 100 09/11/17 06:00 Seg Neutrophils % 75.7 % (40.0-70.0) H 09/16/17 06:51 Seg Neuts % (Manual) 99.0 % (40.0-70.0) H 09/11/17 06:00 Band Neutrophils % 0 % 09/11/17 06:00 Lymphocytes % (Manual) 0 % (13.4-35.0) L 09/11/17 06:00 Reactive Lymphs % (Man) 0 % 09/11/17 06:00 Monocytes % (Manual) 1.0 % (0.0-7.3) 09/11/17 06:00 Eosinophils % (Manual) 0 % (0.0-4.3) 09/11/17 06:00 Basophils % (Manual) 0 % (0.0-1.8) 09/11/17 06:00 Metamyelocytes % 0 % 09/11/17 06:00 Myelocytes % 0 % 09/11/17 06:00 Promyelocytes % 0 % 09/11/17 06:00 Blast Cells % 0 % 09/11/17 06:00 Nucleated RBC % Not Reportable 09/11/17 06:00 Seg Neutrophils # 6.2 K/mm3 (1.8-7.7) 09/16/17 06:51 Seg Neutrophils # Man 15.7 K/mm3 (1.8-7.7) H 09/11/17 06:00 Band Neutrophils # 0.0 K/mm3 09/11/17 06:00 Abs Lymphs (Manual) 1470 cells/uL (850-3900) 09/05/17 14:30 Lymphocytes # (Manual) 0.0 K/mm3 (1.2-5.4) L 09/11/17 06:00 Abs React Lymphs (Man) 0.0 K/mm3 09/11/17 06:00 Monocytes # (Manual) 0.2 K/mm3 (0.0-0.8) 09/11/17 06:00 Eosinophils # (Manual) 0.0 K/mm3 (0.0-0.4) 09/11/17 06:00 Basophils # (Manual) 0.0 K/mm3 (0.0-0.1) 09/11/17 06:00 Metamyelocytes # 0.0 K/mm3 09/11/17 06:00 Myelocytes # 0.0 K/mm3 09/11/17 06:00 Promyelocytes # 0.0 K/mm3 09/11/17 06:00 Blast Cells # 0.0 K/mm3 09/11/17 06:00 WBC Morphology Not Reportable 09/11/17 06:00 Hypersegmented Neuts Not Reportable 09/11/17 06:00 Hyposegmented Neuts Not Reportable 09/11/17 06:00 Hypogranular Neuts Not Reportable 09/11/17 06:00 Smudge Cells Not Reportable 09/11/17 06:00 Toxic Granulation Not Reportable 09/11/17 06:00 Toxic Vacuolation Not Reportable 09/11/17 06:00 Dohle Bodies Not Reportable 09/11/17 06:00 Pelger-Huet Anomaly Not Reportable 09/11/17 06:00 Efren Rods Not Reportable 09/11/17 06:00 Platelet Estimate Cons 09/11/17 06:00 Clumped Platelets Not Reportable 09/11/17 06:00 Plt Clumps, EDTA Not Reportable 09/11/17 06:00 Large Platelets Few 09/11/17 06:00 Giant Platelets Not Reportable 09/11/17 06:00 Platelet Satelliting Not Reportable 09/11/17 06:00 Plt Morphology Comment Not Reportable 09/11/17 06:00 RBC Morphology Not Reportable 09/11/17 06:00 Dimorphic RBCs Not Reportable 09/11/17 06:00 Polychromasia Not Reportable 09/11/17 06:00 Hypochromasia Not Reportable 09/11/17 06:00 Poikilocytosis Not Reportable 09/11/17 06:00 Anisocytosis 1+ 09/11/17 06:00 Microcytosis Not Reportable 09/11/17 06:00 Macrocytosis Not Reportable 09/11/17 06:00 Spherocytes Not Reportable 09/11/17 06:00 Pappenheimer Bodies Not Reportable 09/11/17 06:00 Sickle Cells Not Reportable 09/11/17 06:00 Target Cells Not Reportable 09/11/17 06:00 Tear Drop Cells Not Reportable 09/11/17 06:00 Ovalocytes Not Reportable 09/11/17 06:00 Helmet Cells Not Reportable 09/11/17 06:00 [place] Bodies Not Reportable 09/11/17 06:00 [place] Rings Not Reportable 09/11/17 06:00 [place] Cells Not Reportable 09/11/17 06:00 Bite Cells Not Reportable 09/11/17 06:00 Crenated Cell Not Reportable 09/11/17 06:00 Elliptocytes Not Reportable 09/11/17 06:00 Acanthocytes (Spur) Not Reportable 09/11/17 06:00 Rouleaux Not Reportable 09/11/17 06:00 Hemoglobin C Crystals Not Reportable 09/11/17 06:00 Schistocytes Not Reportable 09/11/17 06:00 Malaria parasites Not Reportable 09/11/17 06:00 Scott Bodies Not Reportable 09/11/17 06:00 Hem Pathologist Commnt No 09/11/17 06:00 PT 14.7 Sec. (12.2-14.9) 09/12/17 10:29 INR 1.09 (0.87-1.13) 09/12/17 10:29 APTT 26.2 Sec. (24.2-36.6) 09/12/17 10:29 Fibrinogen 611 mg/dl (211-480) H 09/04/17 17:23 D-Dimer 976.43 ng/mlDDU (0-234) H 09/01/17 23:27 POC ABG pH 7.415 (7.35-7.45) 09/14/17 06:14 POC ABG pCO2 52.0 (35-45) H 09/14/17 06:14 POC ABG pO2 85 (80-105) 09/14/17 06:14 POC ABG HCO3 33.3 09/14/17 06:14 POC ABG Total CO2 35 09/14/17 06:14 POC ABG O2 Sat 96 09/14/17 06:14 POC ABG Base Excess 9 09/14/17 06:14 FiO2 30 % 09/14/17 06:14 Sodium 140 mmol/L (137-145) 09/16/17 06:51 Potassium 3.6 mmol/L (3.6-5.0) 09/16/17 06:51 Chloride 106.6 mmol/L (98-107) 09/16/17 06:51 Carbon Dioxide 28 mmol/L (22-30) 09/16/17 06:51 Anion Gap 9 mmol/L 09/16/17 06:51 BUN 33 mg/dL (9-20) H 09/16/17 06:51 Creatinine 0.7 mg/dL (0.8-1.5) L 09/16/17 06:51 Estimated GFR > 60 ml/min 09/16/17 06:51 BUN/Creatinine Ratio 47 % 09/16/17 06:51 Glucose 115 mg/dL (75-100) H 09/16/17 06:51 POC Glucose 168 (70-105) H 09/17/17 12:15 Lactic Acid 2.90 mmol/L (0.7-2.0) H* 09/06/17 08:03 Calcium 9.4 mg/dL (8.4-10.2) 09/16/17 06:51 Phosphorus 2.50 mg/dL (2.5-4.5) 09/13/17 09:24 Magnesium 2.00 mg/dL (1.7-2.3) 09/13/17 09:24 Total Bilirubin 0.50 mg/dL (0.1-1.2) 09/15/17 09:50 AST 79 units/L (5-40) H 09/15/17 09:50 ALT 134 units/L (7-56) H 09/15/17 09:50 Alkaline Phosphatase 83 units/L (35-129) 09/15/17 09:50 Lactate Dehydrogenase 571 units/L (91-180) H 09/05/17 10:55 Troponin T < 0.010 ng/mL (0.00-0.029) 09/01/17 23:27 C-Reactive Protein 1.60 mg/dL (0.00-1.30) H 09/12/17 21:44 NT-Pro-B Natriuret Pep 4222 pg/mL (0-900) H 09/15/17 09:50 Total Protein 7.4 g/dL (6.3-8.2) 09/15/17 09:50 Albumin 2.1 g/dL (3.9-5) L 09/15/17 09:50 Albumin/Globulin Ratio 0.4 % 09/15/17 09:50 Lipase 12 units/L (13-60) L 09/04/17 17:23 Vancomycin Trough 22.0 ug/mL (5.0-20.0) H 09/14/17 12:00 Lymph Enumerat CD4/CD8 0.10 (0.86-5.00) L 09/05/17 14:30 % CD3 Cells 75 % (57-85) 09/05/17 14:30 Absolute CD3 Count 1105 cells/uL (840-3060) 09/05/17 14:30 % CD4 Cells 7 % (30-61) L 09/05/17 14:30 Absolute CD4 Count 101 cells/uL (490-1740) L 09/05/17 14:30 % CD8 Cells 66 % (12-42) H 09/05/17 14:30 Absolute CD8 Count 986 cells/uL (180-1170) 09/05/17 14:30 % CD19 Cells 4 % (6-29) L 09/05/17 14:30 Absolute CD19 Count 60 cells/uL (110-660) L 09/05/17 14:30 RPR Nonreactive (Nonreactive) 09/07/17 04:13 Hepatitis A IgM Ab Non-reactive (NonReactive) 09/05/17 10:55 Hep Bs Antigen Reactive (Negative) 09/05/17 10:55 Hep Bs Antibody, Quant <5 mIU/mL (>=10) L 09/07/17 04:13 Hep B Core Total Ab Reactive (Nonreactive) H 09/07/17 04:13 Hep B Core IgM Ab Non-reactive (NonReactive) 09/05/17 10:55 Hepatitis Be Antibody Nonreactive 09/07/17 04:13 Hepatitis Be Antigen Reactive H 09/07/17 04:13 Hepatitis C Antibody Non-reactive (NonReactive) 09/05/17 10:55 HIV-1 RNA PCR copies/ml 1750 Copies/mL H 09/05/17 14:30 HIV-1 RNA (PCR) log 3.24 Log cps/mL H 09/05/17 14:30 HIV-1 Genotyping see below 09/05/17 14:30 HIV 1&2 Antibody Rapid Reactive (Non React) 09/02/17 19:34 HIV P24 Antigen Non react (Non React) 09/02/17 19:34 Urine Legionella Ag Not detected (Not Detected) 09/02/17 13:55 TB (QFT) Gold In Tube Negative (Negative) 09/05/17 14:30 TB Test (QFT) Nil 0.04 IU/mL 09/05/17 14:30 TB Test Mitogen - Nil 2.28 IU/mL 09/05/17 14:30 TB Test Antigen - Nil 0.00 IU/mL 09/05/17 14:30 Miscellaneous Test Flexitest 1 09/06/17 11:30
--- NOTE | 2017-09-17 15:07 | Consultation ---
REFERRING PHYSICIAN: Haresh Nogueira M.D. INDICATION: 1. Increased liver function test. 2. Liver lesions. HISTORY OF PRESENT ILLNESS: The patient is a 52-year-old black male with a history of HIV positive and was recently admitted at the [place] for reported pneumonia prior to being admitted at [facility] on 09/02/2017 for shortness of breath and a cough. The patient subsequently was diagnosed with pneumonia and admitted. The patient when he came in had increased LFTs in the 300s, which have much improved since that admission day. GI is consulted because of a report of liver lesions, possibly representing metastatic disease. The patient is unable to give full history and most of history through chart. Reportedly, no previous history of known liver disease. No other specific GI complaints noted. PAST MEDICAL HISTORY: 1. HIV. 2. Pneumonia. MEDICATIONS: See chart. ALLERGIES: No known drug allergies. SOCIAL HISTORY: Denies reported alcohol. FAMILY HISTORY: Noncontributory. REVIEW OF SYSTEMS: GENERAL: Weakness. HEENT: No visual complaints. PULMONARY: Some shortness of breath. No cough. No chest pain. GASTROINTESTINAL: No specific complaints. All points of 13-point review of systems otherwise negative. PHYSICAL EXAMINATION: VITAL SIGNS: Temperature of 98.2, pulse 96, respirations 20, blood pressure 90/60. GENERAL: Fairly thin-appearing male, in no acute distress. HEENT: Pupils equal, round, and reactive. PULMONARY: Rhonchi. CARDIOVASCULAR: Regular rhythm. ABDOMEN: Soft. SKIN: No obvious rashes. LABORATORY DATA: Pertinent for white count of 8.3, hemoglobin and hematocrit of 9.0 and 27.5, platelet count of 104. Chem-7: Sodium of 152, potassium 3.5, chloride 150, CO2 34, BUN and creatinine of 35 and 0.9. AST, ALT of most recent being 79 and 134 with a normal total bilirubin and normal alkaline phosphatase. A CT scan on 09/11/2017 shows possibly hemangioma, but no other pathology. Ultrasound raised the question of liver lesions raising possible metastatic disease. ASSESSMENT: A 52-year-old male with multiple medical problems, HIV, admitted with respiratory failure, now been seen by GI for reported ultrasound showing possible metastatic disease. The ultrasound, which shows possible multiple liver lesions and metastatic disease, is not consistent with the patient's CT scan, which raised the possibility for single hemangioma. To that end, I had the images reviewed by Radiology. Radiology thinks that there were only a few lesions seen on the ultrasound and those are also consistent with a hemangioma. The patient's LFTs were actually much higher when he first came to the hospital, much better. He initially had a positive hepatitis B screen. Viral load was negative. At this time, I see no need for liver interventions and his liver numbers are stable. PLAN: 1. Continue to follow LFTs. 2. Avoid hepatotoxic drugs. 3. No need for liver biopsy or other GI intervention at this time. 4. We will sign off, call if needed. JOB# [id number] CAB/NTS
[2017-09-18] MEDS: NOVOLOG SUB-Q SCH ×4 (01:53→18:10)
[2017-09-18] MEDS: DUONEB *Not for PRN Use IH SCH ×2 (03:58→09:12)
--- NOTE | 2017-09-18 08:10 | XRay Report ---
AP ABDOMEN: HISTORY: Dobbhoff tube placement. The distal tip of the Dobbhoff tube terminates in the fundus of the stomach. The abdominal gas pattern is unremarkable. No masses or organomegaly is identified and there is no gross evidence of free air or fluid. No significant soft tissue calcifications are noted. Mild residual oral contrast agent throughout the colon is noted. IMPRESSION: Unremarkable abdomen. The Dobbhoff tube terminates in the fundus of the stomach.
[2017-09-18] MEDS: ATIVAN IV PRN (08:49)
--- NOTE | 2017-09-18 09:57 | Progress Note ---
Assessment and Plan Assessment: 1) Severe Sepsis with septic shock versus card shock / third spacing: off pressors, fever and leukocytosis resolved; unclear etiology ?pneumonia with effusion. Initial Etiology most likely E coli septicemia and pneumonia. -CRP 22. --> 1.6 -Lactic acid better as of 09/06. 2) E. coli septicemia: unknown source ? Pneumonia ? UTI (UCx negative) ? GI -Blood cultures 09/01 positive 4 of 4 bottles. E coli sens to cefepime/zosyn -Repeat Blood cultures 09/04 negative. -TTE 09/02 no vegetations. 3) Bilateral pneumonia: recently treated at [facility]. -Tracheal asp with normal fiordaliza. - CT chest 09/02 with extensive bilateral pulmonary opacities due to edema vs PNA. Also component of atelectasis. Bilateral pleural effusions. - Legionella and Strep pneumo ag in urine negative - On bactrim and steroids since 09/05. -PJP DFA negative -repeat CT patchy infiltrate in RUL and large right effusion/mod left effusion -Strep pneumoniae neg 4) Acute respiratory failure. Intubated. From pneumonia +/- CHF 5) HIV/AIDS, poorly compliant with HAART for past > 1 year per [facility]; last CD4 per [facility] was 133. TK4=678/VL 1750 on 08/26/17 -RPR neg -fungal blood cx neg 6) Abnormal CT A/P with numerous liver lesions suspicious for metastatic liver disease, moderate ascites, possible partial vein thrombosis. 7) Encephalopathy. 8) Transaminitis. Improved. ?hep B. ?cirrhosis -Hep B Surface ag positive, HBVe antigen positive, HBV core total ab positive -Hep C negative -CT + Ascitis -US + ? portal venous thrombosis, multiple liver lesions 9) Acute Thrombocytopenia. Improved. 10) Low EF Plan: -GI med consult for elevated LFTs and abnormal liver US ? HBV with cirrhosis ? malignancy -continue bactrim DS 1 tab qday for prophylaxis -continue azithromycin 1200 mg qweek for prophylaxis -Will f/u genotype, HLA [id number], quantiferon, hep B viral load - all pending -Will f/u AFB blood cultures - pending -needs PT -upon discharge send to ID clinic please call [phone] and continue bactrim DS 1 tab qday for prophylaxis and azithromycin 1200 mg qweek for prophylaxis I will sign off Eduarda Rolon MD Infectious Diseases Specialist [facility] ([facility]) M [phone] O [phone] Subjective Date of service: 09/18/17 Principal diagnosis: Septic shock, acute hypoxemic respiratory failure, [place] Interval history: Remains intubated. Afebrile. Off pressors. Alert talking wants restraints to be removed. Microbiology: Blood cultures: 09/01 E coli x 4 bottles 09/04 Neg 09/06 neg Fungal blood culture: 09/06 neg Urine cultures: 09/02 Neg Respiratory cultures: TA 09/02 normal fiordaliza Crypto ag in serum negative Current Antimicrobials: Vanco 09/12 Bactrim 09/05- Azithromycin 09/06- Solumedrol 09/05- Previous Antimicrobials: Zosyn 09/02 Azithro 09/02 Meropenem 09/02- Fluconazole 09/03- Cefepime 09/05 Objective - Constitutional Vitals: Vital Signs Temp Pulse Resp BP Pulse Ox 97.8 F 106 H 20 103/76 96 09/18/17 08:00 09/18/17 09:22 09/18/17 09:22 09/18/17 06:45 09/18/17 09:24 Temperature -Last 24 Hours Temperature 97.8 F Temperature 98 F Temperature 98.4 F Temperature 97.6 F Temperature 98 F Temperature 98.2 F - Labs CBC & Chem 7: 09/16/17 06:51 09/16/17 06:51 Labs: Abnormal lab results 09/17/17 09/17/17 09/18/17 Range/Units 12:15 17:13 00:22 POC Glucose 168 H 162 H 132 H (70-105)
[2017-09-18] MEDS: LASIX IV SCH (10:58)
[2017-09-18] MEDS: LOVENOX SUB-Q SCH (10:58)
[2017-09-18] MEDS: BACTRIM DS PO SCH (10:58)
[2017-09-18] MEDS: PEPCID PO SCH ×2 (10:58→21:37)
--- NOTE | 2017-09-18 11:14 | Progress Note ---
Assessment and Plan Assessment and plan: 52-year-old male presents to the emergency department with complaint of shortness of breath and some midsternal right-sided chest discomfort with inspiration that started earlier this afternoon and radiates towards the back. The patient was just discharged from the [facility] a few days ago after treated for bilateral pneumonia. He is on Bactrim and just finished a course of antifungal medication for oral thrush. He does not smoke or use illicit drugs. His physicians are through the [facility]. Patient was recently discharged from a 6 day hospital stay at the [facility]. He denies any leg swelling, nausea, vomiting or fever. Septic shock due to underlying pneumonia - Patient is off pressors - Resolved Pneumonia bacteria - Ramón neg rods, Gram Negative bacteremia - Will repeat CXR today Patient is on Bactrim and azithromycin for prophylaxis Acute hypoxemic respiratory failure intubated 09/01/17, on MV >96 hours, extubated on 09/16 17 - Saturating well off oxygen Hyperkalemia - corrected Anemia of chronic disease - Will follow closely - Gi evaluated him Hypernatremia - resolved multiple liver masses suspicious for metastatic disease - GI consulted and said it is likely hemangioma Portal vein thrombosis? not clearly seen on US, will need dedicated study when clinically more stable HIV- ID following hypokalemia - Repleted Patient took the IV line - If needed will restarin, discussed with the charge nurse Plan - - DVT GI prophylaxis with Lovenox and Pepcid - Monitor patient in the ICU today and possible transfer to the floor in the next 24hrs. History Interval history: Was seen and evaluated this morning, patient is off mechanical ventilation. Muffled sounds. Hospitalist Physical - Physical exam Narrative exam: Patient is off mechanical ventilation. Saturating well without oxygen. The patient apperaed emaciated Vital signs as documented. Head exam is unremarkable. No scleral icterus . Neck is without jugular venous distension, thyromegaly, or carotid bruits. Lungs are clear to auscultation. Cardiac exam reveals regular rate and Rhythm. First and second heart sounds normal. No murmurs, rubs or gallops. Abdominal exam reveals normal bowel sounds, no masses, no organomegaly and no aortic enlargement. Extremities are nonedematous and both femoral and pedal pulses are normal. 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 - Constitutional Vitals: Temp Pulse Resp BP Pulse Ox 97.8 F 106 H 20 103/76 96 09/18/17 08:00 09/18/17 09:22 09/18/17 09:22 09/18/17 06:45 09/18/17 09:24 General appearance: Present: no acute distress, well-nourished, other (intubated ) Results - Labs CBC & Chem 7: 09/16/17 06:51 03 06:51 Labs: Laboratory Last Values WBC 8.1 K/mm3 (4.5-11.0) 09/16/17 06:51 RBC 3.59 M/mm3 (3.65-5.03) L 09/16/17 06:51 Hgb 10.2 gm/dl (11.8-15.2) L 09/16/17 06:51 Hct 30.5 % (35.5-45.6) L 09/16/17 06:51 MCV 85 fl (84-94) 09/16/17 06:51 MCH 28 pg (28-32) 09/16/17 06:51 MCHC 33 % (32-34) 09/16/17 06:51 RDW 16.1 % (13.2-15.2) H 09/16/17 06:51 Plt Count 262 K/mm3 (140-440) 09/16/17 06:51 Lymph % (Auto) 12.9 % (13.4-35.0) L 09/16/17 06:51 [place] % (Auto) 9.6 % (0.0-7.3) H 09/16/17 06:51 Eos % (Auto) 1.6 % (0.0-4.3) 09/16/17 06:51 Baso % (Auto) 0.2 % (0.0-1.8) 09/16/17 06:51 Lymph # 1.0 K/mm3 (1.2-5.4) L 09/16/17 06:51 [place] # 0.8 K/mm3 (0.0-0.8) 09/16/17 06:51 Eos # 0.1 K/mm3 (0.0-0.4) 09/16/17 06:51 Baso # 0.0 K/mm3 (0.0-0.1) 03/03/18 06:51 Add Manual Diff Complete 09/11/17 06:00 Total Counted 100 09/11/17 06:00 Seg Neutrophils % 75.7 % (40.0-70.0) H 09/16/17 06:51 Seg Neuts % (Manual) 99.0 % (40.0-70.0) H 09/11/17 06:00 Band Neutrophils % 0 % 09/11/17 06:00 Lymphocytes % (Manual) 0 % (13.4-35.0) L 09/11/17 06:00 Reactive Lymphs % (Man) 0 % 09/11/17 06:00 Monocytes % (Manual) 1.0 % (0.0-7.3) 09/11/17 06:00 Eosinophils % (Manual) 0 % (0.0-4.3) 09/11/17 06:00 Basophils % (Manual) 0 % (0.0-1.8) 09/11/17 06:00 Metamyelocytes % 0 % 09/11/17 06:00 Myelocytes % 0 % 09/11/17 06:00 Promyelocytes % 0 % 09/11/17 06:00 Blast Cells % 0 % 09/11/17 06:00 Nucleated RBC % Not Reportable 09/11/17 06:00 Seg Neutrophils # 6.2 K/mm3 (1.8-7.7) 09/16/17 06:51 Seg Neutrophils # Man 15.7 K/mm3 (1.8-7.7) H 09/11/17 06:00 Band Neutrophils # 0.0 K/mm3 09/11/17 06:00 Abs Lymphs (Manual) 1470 cells/uL (850-3900) 09/05/17 14:30 Lymphocytes # (Manual) 0.0 K/mm3 (1.2-5.4) L 09/11/17 06:00 Abs React Lymphs (Man) 0.0 K/mm3 09/11/17 06:00 Monocytes # (Manual) 0.2 K/mm3 (0.0-0.8) 09/11/17 06:00 Eosinophils # (Manual) 0.0 K/mm3 (0.0-0.4) 09/11/17 06:00 Basophils # (Manual) 0.0 K/mm3 (0.0-0.1) 09/11/17 06:00 Metamyelocytes # 0.0 K/mm3 09/11/17 06:00 Myelocytes # 0.0 K/mm3 09/11/17 06:00 Promyelocytes # 0.0 K/mm3 09/11/17 06:00 Blast Cells # 0.0 K/mm3 09/11/17 06:00 WBC Morphology Not Reportable 09/11/17 06:00 Hypersegmented Neuts Not Reportable 09/11/17 06:00 Hyposegmented Neuts Not Reportable 09/11/17 06:00 Hypogranular Neuts Not Reportable 09/11/17 06:00 Smudge Cells Not Reportable 09/11/17 06:00 Toxic Granulation Not Reportable 09/11/17 06:00 Toxic Vacuolation Not Reportable 09/11/17 06:00 Dohle Bodies Not Reportable 09/11/17 06:00 Pelger-Huet Anomaly Not Reportable 09/11/17 06:00 Efren Rods Not Reportable 09/11/17 06:00 Platelet Estimate Cons 09/11/17 06:00 Clumped Platelets Not Reportable 09/11/17 06:00 Plt Clumps, EDTA Not Reportable 09/11/17 06:00 Large Platelets Few 09/11/17 06:00 Giant Platelets Not Reportable 09/11/17 06:00 Platelet Satelliting Not Reportable 09/11/17 06:00 Plt Morphology Comment Not Reportable 09/11/17 06:00 RBC Morphology Not Reportable 09/11/17 06:00 Dimorphic RBCs Not Reportable 09/11/17 06:00 Polychromasia Not Reportable 09/11/17 06:00 Hypochromasia Not Reportable 09/11/17 06:00 Poikilocytosis Not Reportable 09/11/17 06:00 Anisocytosis 1+ 09/11/17 06:00 Microcytosis Not Reportable 09/11/17 06:00 Macrocytosis Not Reportable 09/11/17 06:00 Spherocytes Not Reportable 09/11/17 06:00 Pappenheimer Bodies Not Reportable 09/11/17 06:00 Sickle Cells Not Reportable 09/11/17 06:00 Target Cells Not Reportable 09/11/17 06:00 Tear Drop Cells Not Reportable 09/11/17 06:00 Ovalocytes Not Reportable 09/11/17 06:00 Helmet Cells Not Reportable 09/11/17 06:00 Mai-Darwin Bodies Not Reportable 09/11/17 06:00 [place] Rings Not Reportable 09/11/17 06:00 Mayo Cells Not Reportable 09/11/17 06:00 Bite Cells Not Reportable 09/11/17 06:00 Crenated Cell Not Reportable 09/11/17 06:00 Elliptocytes Not Reportable 09/11/17 06:00 Acanthocytes (Spur) Not Reportable 09/11/17 06:00 Rouleaux Not Reportable 09/11/17 06:00 Hemoglobin C Crystals Not Reportable 09/11/17 06:00 Schistocytes Not Reportable 09/11/17 06:00 Malaria parasites Not Reportable 09/11/17 06:00 Scott Bodies Not Reportable 09/11/17 06:00 Hem Pathologist Commnt No 09/11/17 06:00 PT 14.7 Sec. (12.2-14.9) 09/12/17 10:29 INR 1.09 (0.87-1.13) 09/12/17 10:29 APTT 26.2 Sec. (24.2-36.6) 09/12/17 10:29 Fibrinogen 611 mg/dl (211-480) H 09/04/17 17:23 D-Dimer 976.43 ng/mlDDU (0-234) H 09/01/17 23:27 POC ABG pH 7.415 (7.35-7.45) 09/14/17 06:14 POC ABG pCO2 52.0 (35-45) H 09/14/17 06:14 POC ABG pO2 85 (80-105) 09/14/17 06:14 POC ABG HCO3 33.3 09/14/17 06:14 POC ABG Total CO2 35 09/14/17 06:14 POC ABG O2 Sat 96 09/14/17 06:14 POC ABG Base Excess 9 09/14/17 06:14 FiO2 30 % 09/14/17 06:14 Sodium 140 mmol/L (137-145) 09/16/17 06:51 Potassium 3.6 mmol/L (3.6-5.0) 09/16/17 06:51 Chloride 106.6 mmol/L (98-107) 09/16/17 06:51 Carbon Dioxide 28 mmol/L (22-30) 09/16/17 06:51 Anion Gap 9 mmol/L 09/16/17 06:51 BUN 33 mg/dL (9-20) H 09/16/17 06:51 Creatinine 0.7 mg/dL (0.8-1.5) L 09/16/17 06:51 Estimated GFR > 60 ml/min 09/16/17 06:51 BUN/Creatinine Ratio 47 % 09/16/17 06:51 Glucose 115 mg/dL (75-100) H 09/16/17 06:51 POC Glucose 96 (70-105) 09/18/17 05:36 Lactic Acid 2.90 mmol/L (0.7-2.0) H* 09/06/17 08:03 Calcium 9.4 mg/dL (8.4-10.2) 09/16/17 06:51 Phosphorus 2.50 mg/dL (2.5-4.5) 09/13/17 09:24 Magnesium 2.00 mg/dL (1.7-2.3) 09/13/17 09:24 Total Bilirubin 0.50 mg/dL (0.1-1.2) 09/15/17 09:50 AST 79 units/L (5-40) H 09/15/17 09:50 ALT 134 units/L (7-56) H 09/15/17 09:50 Alkaline Phosphatase 83 units/L (35-129) 09/15/17 09:50 Lactate Dehydrogenase 571 units/L (91-180) H 09/05/17 10:55 Troponin T < 0.010 ng/mL (0.00-0.029) 09/01/17 23:27 C-Reactive Protein 1.60 mg/dL (0.00-1.30) H 09/12/17 21:44 NT-Pro-B Natriuret Pep 4222 pg/mL (0-900) H 09/15/17 09:50 Total Protein 7.4 g/dL (6.3-8.2) 09/15/17 09:50 Albumin 2.1 g/dL (3.9-5) L 09/15/17 09:50 Albumin/Globulin Ratio 0.4 % 09/15/17 09:50 Lipase 12 units/L (13-60) L 09/04/17 17:23 Vancomycin Trough 22.0 ug/mL (5.0-20.0) H 09/14/17 12:00 Lymph Enumerat CD4/CD8 0.10 (0.86-5.00) L 09/05/17 14:30 % CD3 Cells 75 % (57-85) 09/05/17 14:30 Absolute CD3 Count 1105 cells/uL (840-3060) 09/05/17 14:30 % CD4 Cells 7 % (30-61) L 09/05/17 14:30 Absolute CD4 Count 101 cells/uL (490-1740) L 09/05/17 14:30 % CD8 Cells 66 % (12-42) H 09/05/17 14:30 Absolute CD8 Count 986 cells/uL (180-1170) 09/05/17 14:30 % CD19 Cells 4 % (6-29) L 09/05/17 14:30 Absolute CD19 Count 60 cells/uL (110-660) L 09/05/17 14:30 RPR Nonreactive (Nonreactive) 09/07/17 04:13 Hepatitis A IgM Ab Non-reactive (NonReactive) 09/05/17 10:55 Hep Bs Antigen Reactive (Negative) 09/05/17 10:55 Hep Bs Antibody, Quant <5 mIU/mL (>=10) L 09/07/17 04:13 Hep B Core Total Ab Reactive (Nonreactive) H 09/07/17 04:13 Hep B Core IgM Ab Non-reactive (NonReactive) 09/05/17 10:55 Hepatitis Be Antibody Nonreactive 09/07/17 04:13 Hepatitis Be Antigen Reactive H 09/07/17 04:13 Hepatitis C Antibody Non-reactive (NonReactive) 09/05/17 10:55 HIV-1 RNA PCR copies/ml 1750 Copies/mL H 09/05/17 14:30 HIV-1 RNA (PCR) log 3.24 Log cps/mL H 09/05/17 14:30 HIV-1 Genotyping see below 09/05/17 14:30 HIV 1&2 Antibody Rapid Reactive (Non React) 09/02/17 19:34 HIV P24 Antigen Non react (Non React) 09/02/17 19:34 Urine Legionella Ag Not detected (Not Detected) 09/02/17 13:55 TB (QFT) Gold In Tube Negative (Negative) 09/05/17 14:30 TB Test (QFT) Nil 0.04 IU/mL 09/05/17 14:30 TB Test Mitogen - Nil 2.28 IU/mL 09/05/17 14:30 TB Test Antigen - Nil 0.00 IU/mL 09/05/17 14:30 Miscellaneous Test Flexitest 1 09/06/17 11:30
[2017-09-18] MEDS: COREG PO SCH ×2 (11:33→21:36)
--- NOTE | 2017-09-18 12:03 | Progress Note ---
Assessment and Plan 52 y/o male, vet, admitted with acute respiratory failure thought secondary to pneumonia with lactic acidosis, found to have newly diagnosed HIV being treated empirically for PJP and with systolic heart failure 1. Hypotension. Likely relative given depressed EF. If mental status is normal with MAPS of 55 or greater will wean to off. Will also order cortisol but this is a send out lab at this hospital. Could be adrenal insufficient, especially given underlying diagnosis. 2. Abx therapy per ID 3. Continue daily lasix therapy for volume overload and coreg BID therapy. 4. Strict I/O 5. Continue feeds as tolerated 6. Overall prognosis is guarded to poor. 7. Transfer out of ICU. Will likely sign off once out of unit. Subjective Date of service: 09/18/17 Principal diagnosis: Septic shock, acute hypoxemic respiratory failure, [place] Interval history: no acute events. Stable. Remains on Room air. Pulled out NG tube. has been evaluated by speech. Objective Vital Signs - 12hr 09/18/17 09/18/17 09/18/17 00:15 00:30 00:45 Temperature Pulse Rate 103 H 94 H 96 H Pulse Rate [ Anterior Bilateral Throughout] Respiratory 20 23 29 H Rate Respiratory Rate [Anterior Bilateral Throughout] Blood Pressure 95/64 94/60 94/60 O2 Sat by Pulse 100 99 100 Oximetry 09/18/17 09/18/17 09/18/17 01:00 01:15 01:30 Temperature Pulse Rate 100 H 98 H 97 H Pulse Rate [ Anterior Bilateral Throughout] Respiratory 22 26 H 25 H Rate Respiratory Rate [Anterior Bilateral Throughout] Blood Pressure 92/63 94/60 95/65 O2 Sat by Pulse 100 100 99 Oximetry 09/18/17 09/18/17 09/18/17 01:45 02:00 02:15 Temperature Pulse Rate 92 H 93 H 103 H Pulse Rate [ Anterior Bilateral Throughout] Respiratory 29 H 26 H 19 Rate Respiratory Rate [Anterior Bilateral Throughout] Blood Pressure 92/63 99/70 99/70 O2 Sat by Pulse 96 99 99 Oximetry 09/18/17 09/18/17 09/18/17 02:30 02:45 03:00 Temperature Pulse Rate 102 H 89 86 Pulse Rate [ Anterior Bilateral Throughout] Respiratory 23 25 H 24 Rate Respiratory Rate [Anterior Bilateral Throughout] Blood Pressure 129/76 129/76 103/73 O2 Sat by Pulse 99 100 Oximetry 09/18/17 09/18/17 09/18/17 03:15 03:30 03:45 Temperature Pulse Rate 82 85 100 H Pulse Rate [ Anterior Bilateral Throughout] Respiratory 22 22 20 Rate Respiratory Rate [Anterior Bilateral Throughout] Blood Pressure 103/73 119/77 119/77 O2 Sat by Pulse 98 97 98 Oximetry 09/18/17 09/18/17 09/18/17 04:00 04:15 04:30 Temperature 98 F Pulse Rate 85 87 87 Pulse Rate [ Anterior Bilateral Throughout] Respiratory 23 24 26 H Rate Respiratory Rate [Anterior Bilateral Throughout] Blood Pressure 98/67 98/67 102/66 O2 Sat by Pulse 100 99 Oximetry 09/18/17 09/18/17 09/18/17 04:45 05:00 05:15 Temperature Pulse Rate 87 90 90 Pulse Rate [ Anterior Bilateral Throughout] Respiratory 25 H 27 H 25 H Rate Respiratory Rate [Anterior Bilateral Throughout] Blood Pressure 102/66 99/68 99/68 O2 Sat by Pulse 99 99 99 Oximetry 09/18/17 09/18/17 09/18/17 05:30 05:45 06:00 Temperature Pulse Rate 89 89 Pulse Rate [ Anterior Bilateral Throughout] Respiratory 25 H 26 H Rate Respiratory Rate [Anterior Bilateral Throughout] Blood Pressure 99/64 99/64 103/76 O2 Sat by Pulse 99 95 Oximetry 09/18/17 09/18/17 09/18/17 06:15 06:30 06:45 Temperature Pulse Rate 84 78 77 Pulse Rate [ Anterior Bilateral Throughout] Respiratory 27 H 21 18 Rate Respiratory Rate [Anterior Bilateral Throughout] Blood Pressure 103/76 97/65 103/76 O2 Sat by Pulse 99 99 Oximetry 09/18/17 09/18/17 09/18/17 07:00 07:15 07:30 Temperature Pulse Rate 80 82 82 Pulse Rate [ Anterior Bilateral Throughout] Respiratory 18 20 21 Rate Respiratory Rate [Anterior Bilateral Throughout] Blood Pressure 100/64 97/65 91/59 O2 Sat by Pulse 99 100 Oximetry 09/18/17 09/18/17 09/18/17 07:45 08:00 08:01 Temperature 97.8 F Pulse Rate 91 H 109 H Pulse Rate [ Anterior Bilateral Throughout] Respiratory 17 20 Rate Respiratory Rate [Anterior Bilateral Throughout] Blood Pressure 91/59 101/71 O2 Sat by Pulse 98 98 Oximetry 09/18/17 09/18/17 09/18/17 08:10 08:15 08:30 Temperature Pulse Rate 117 H 120 H Pulse Rate [ 108 H Anterior Bilateral Throughout] Respiratory 23 30 H Rate Respiratory 20 Rate [Anterior Bilateral Throughout] Blood Pressure 101/71 96/63 O2 Sat by Pulse 100 97 Oximetry 09/18/17 09/18/17 09/18/17 08:46 09:00 09:16 Temperature Pulse Rate 132 H 115 H 111 H Pulse Rate [ Anterior Bilateral Throughout] Respiratory 22 14 29 H Rate Respiratory Rate [Anterior Bilateral Throughout] Blood Pressure 100/76 100/76 O2 Sat by Pulse Oximetry 09/18/17 09/18/17 09/18/17 09:22 09:24 09:30 Temperature Pulse Rate 109 H Pulse Rate [ 106 H Anterior Bilateral Throughout] Respiratory 12 Rate Respiratory 20 Rate [Anterior Bilateral Throughout] Blood Pressure 108/66 O2 Sat by Pulse 96 Oximetry 09/18/17 09/18/17 09/18/17 09:46 10:00 10:16 Temperature Pulse Rate 109 H 108 H 104 H Pulse Rate [ Anterior Bilateral Throughout] Respiratory 16 24 22 Rate Respiratory Rate [Anterior Bilateral Throughout] Blood Pressure 108/66 98/64 98/64 O2 Sat by Pulse Oximetry 09/18/17 09/18/17 09/18/17 10:30 10:46 11:00 Temperature Pulse Rate 110 H 107 H 102 H Pulse Rate [ Anterior Bilateral Throughout] Respiratory 14 41 H 27 H Rate Respiratory Rate [Anterior Bilateral Throughout] Blood Pressure 105/70 105/70 104/72 O2 Sat by Pulse Oximetry 09/18/17 09/18/17 09/18/17 11:16 11:30 11:46 Temperature Pulse Rate 105 H 96 H 93 H Pulse Rate [ Anterior Bilateral Throughout] Respiratory 30 H 28 H 28 H Rate Respiratory Rate [Anterior Bilateral Throughout] Blood Pressure 104/72 100/70 100/70 O2 Sat by Pulse Oximetry Constitutional: other (critically ill on vent, sedated) Eyes: non-icteric ENT: other (orally intubated and sedated) Neck: supple Effort: normal Ascultation: Bilateral: diminished breath sounds, rales, other (coarse BS bilaterally) Percussion: Bilateral: not dull Cardiovascular: regular rate and rhythm (sinus tach) Gastrointestinal: hypoactive bowel sounds, soft, non-tender, non-distended Extremities: no cyanosis, no edema, pink and warm Neurologic: normal mental status, non-focal exam, pupils equal and round, CN II- XII normal Psychiatric: other (unable to assess) CBC and BMP: 09/16/17 06:51 09/16/17 06:51 ABG, PT/INR, D-dimer: ABG POC ABG pH 7.415 (7.35-7.45) 09/14/17 06:14 POC ABG pCO2 52.0 (35-45) H 09/14/17 06:14 POC ABG pO2 85 (80-105) 09/14/17 06:14 POC ABG HCO3 33.3 09/14/17 06:14 POC ABG Total CO2 35 09/14/17 06:14 POC ABG O2 Sat 96 09/14/17 06:14 PT/INR, D-dimer PT 14.7 Sec. (12.2-14.9) 09/12/17 10:29 INR 1.09 (0.87-1.13) 09/12/17 10:29 D-Dimer 976.43 ng/mlDDU (0-234) H 09/01/17 23:27 Abnormal lab findings: Abnormal Labs 09/01/17 09/01/17 09/01/17 19:00 19:00 23:27 WBC RBC Hgb 10.9 L Hct 32.3 L MCV 83 L MCH RDW 15.6 H Plt Count Lymph % (Auto) [place] % (Auto) Lymph # Seg Neutrophils % Seg Neuts % (Manual) Lymphocytes % (Manual) Nucleated RBC % Seg Neutrophils # Man Lymphocytes # (Manual) PT INR Fibrinogen D-Dimer 976.43 H POC ABG pH POC ABG pCO2 POC ABG pO2 Sodium 133 L Potassium Chloride 96.4 L Carbon Dioxide BUN Creatinine Glucose 113 H POC Glucose Lactic Acid Calcium Phosphorus Magnesium AST ALT Lactate Dehydrogenase C-Reactive Protein NT-Pro-B Natriuret Pep Total Protein Albumin Lipase Vancomycin Trough Lymph Enumerat CD4/CD8 % CD4 Cells Absolute CD4 Count % CD8 Cells % CD19 Cells Absolute CD19 Count Hep Bs Antibody, Quant Hep B Core Total Ab Hepatitis Be Antigen HIV-1 RNA PCR copies/ml HIV-1 RNA (PCR) log 09/01/17 09/02/17 09/02/17 23:27 01:25 07:36 WBC 2.2 L RBC 3.41 L Hgb 9.6 L Hct 28.9 L MCV MCH RDW 16.0 H Plt Count Lymph % (Auto) [place] % (Auto) 12.6 H Lymph # Seg Neutrophils % 70.4 H Seg Neuts % (Manual) Lymphocytes % (Manual) Nucleated RBC % Seg Neutrophils # Man 1.1 L Lymphocytes # (Manual) 0.6 L PT INR Fibrinogen D-Dimer POC ABG pH POC ABG pCO2 POC ABG pO2 Sodium Potassium Chloride Carbon Dioxide BUN Creatinine Glucose POC Glucose Lactic Acid 3.30 H* 4.10 H* Calcium Phosphorus Magnesium AST ALT Lactate Dehydrogenase C-Reactive Protein NT-Pro-B Natriuret Pep Total Protein Albumin Lipase Vancomycin Trough Lymph Enumerat CD4/CD8 % CD4 Cells Absolute CD4 Count % CD8 Cells % CD19 Cells Absolute CD19 Count Hep Bs Antibody, Quant Hep B Core Total Ab Hepatitis Be Antigen HIV-1 RNA PCR copies/ml HIV-1 RNA (PCR) log 09/02/17 09/02/17 09/02/17 07:36 07:36 07:36 WBC RBC Hgb Hct MCV MCH RDW Plt Count Lymph % (Auto) [place] % (Auto) Lymph # Seg Neutrophils % Seg Neuts % (Manual) Lymphocytes % (Manual) Nucleated RBC % Seg Neutrophils # Man Lymphocytes # (Manual) PT 18.6 H INR 1.46 H Fibrinogen D-Dimer POC ABG pH POC ABG pCO2 POC ABG pO2 Sodium 136 L Potassium Chloride Carbon Dioxide BUN Creatinine Glucose POC Glucose Lactic Acid 3.80 H* Calcium Phosphorus Magnesium 1.20 L AST ALT Lactate Dehydrogenase C-Reactive Protein NT-Pro-B Natriuret Pep Total Protein 9.1 H Albumin 2.0 L Lipase Vancomycin Trough Lymph Enumerat CD4/CD8 % CD4 Cells Absolute CD4 Count % CD8 Cells % CD19 Cells Absolute CD19 Count Hep Bs Antibody, Quant Hep B Core Total Ab Hepatitis Be Antigen HIV-1 RNA PCR copies/ml HIV-1 RNA (PCR) log 09/02/17 09/02/17 09/02/17 08:49 09:40 11:33 WBC RBC Hgb Hct MCV MCH RDW Plt Count Lymph % (Auto) [place] % (Auto) Lymph # Seg Neutrophils % Seg Neuts % (Manual) Lymphocytes % (Manual) Nucleated RBC % Seg Neutrophils # Man Lymphocytes # (Manual) PT INR Fibrinogen D-Dimer POC ABG pH 7.313 L POC ABG pCO2 POC ABG pO2 116 H Sodium Potassium Chloride Carbon Dioxide BUN Creatinine Glucose POC Glucose Lactic Acid 3.60 H* 5.20 H* Calcium Phosphorus Magnesium AST ALT Lactate Dehydrogenase C-Reactive Protein NT-Pro-B Natriuret Pep Total Protein Albumin Lipase Vancomycin Trough Lymph Enumerat CD4/CD8 % CD4 Cells Absolute CD4 Count % CD8 Cells % CD19 Cells Absolute CD19 Count Hep Bs Antibody, Quant Hep B Core Total Ab Hepatitis Be Antigen HIV-1 RNA PCR copies/ml HIV-1 RNA (PCR) log 09/02/17 09/02/17 09/02/17 19:34 23:37 23:40 WBC RBC Hgb Hct MCV MCH RDW Plt Count Lymph % (Auto) [place] % (Auto) Lymph # Seg Neutrophils % Seg Neuts % (Manual) Lymphocytes % (Manual) Nucleated RBC % Seg Neutrophils # Man Lymphocytes # (Manual) PT INR Fibrinogen D-Dimer POC ABG pH POC ABG pCO2 POC ABG pO2 Sodium Potassium Chloride Carbon Dioxide BUN Creatinine Glucose 59 L POC Glucose 47 L Lactic Acid Calcium Phosphorus Magnesium AST ALT Lactate Dehydrogenase C-Reactive Protein 22.30 H NT-Pro-B Natriuret Pep Total Protein Albumin Lipase Vancomycin Trough Lymph Enumerat CD4/CD8 % CD4 Cells Absolute CD4 Count % CD8 Cells % CD19 Cells Absolute CD19 Count Hep Bs Antibody, Quant Hep B Core Total Ab Hepatitis Be Antigen HIV-1 RNA PCR copies/ml HIV-1 RNA (PCR) log 09/03/17 09/03/17 09/03/17 00:06 05:15 05:15 WBC RBC 3.59 L Hgb 10.1 L Hct 31.5 L MCV MCH RDW 18.0 H Plt Count Lymph % (Auto) [place] % (Auto) Lymph # Seg Neutrophils % Seg Neuts % (Manual) Lymphocytes % (Manual) 1.0 L Nucleated RBC % 1.0 H Seg Neutrophils # Man Lymphocytes # (Manual) 0.1 L PT INR Fibrinogen D-Dimer POC ABG pH POC ABG pCO2 POC ABG pO2 Sodium Potassium Chloride Carbon Dioxide BUN Creatinine Glucose POC Glucose 144 H Lactic Acid 9.10 H* Calcium Phosphorus Magnesium AST ALT Lactate Dehydrogenase C-Reactive Protein NT-Pro-B Natriuret Pep Total Protein Albumin Lipase Vancomycin Trough Lymph Enumerat CD4/CD8 % CD4 Cells Absolute CD4 Count % CD8 Cells % CD19 Cells Absolute CD19 Count Hep Bs Antibody, Quant Hep B Core Total Ab Hepatitis Be Antigen HIV-1 RNA PCR copies/ml HIV-1 RNA (PCR) log 09/03/17 09/03/1709/03/18 05:15 05:55 07:40 WBC RBC Hgb Hct MCV MCH RDW Plt Count Lymph % (Auto) [place] % (Auto) Lymph # Seg Neutrophils % Seg Neuts % (Manual) Lymphocytes % (Manual) Nucleated RBC % Seg Neutrophils # Man Lymphocytes # (Manual) PT INR Fibrinogen D-Dimer POC ABG pH 6.999 L POC ABG pCO2 POC ABG pO2 64 L Sodium Potassium 5.6 H D Chloride 108.4 H Carbon Dioxide 11 L D BUN 30 H Creatinine Glucose 115 H POC Glucose Lactic Acid 9.20 H* Calcium 7.3 L D Phosphorus 6.40 H Magnesium AST 88 H ALT Lactate Dehydrogenase C-Reactive Protein NT-Pro-B Natriuret Pep Total Protein Albumin 1.7 L Lipase Vancomycin Trough Lymph Enumerat CD4/CD8 % CD4 Cells Absolute CD4 Count % CD8 Cells % CD19 Cells Absolute CD19 Count Hep Bs Antibody, Quant Hep B Core Total Ab Hepatitis Be Antigen HIV-1 RNA PCR copies/ml HIV-1 RNA (PCR) log 09/03/17 09/03/17 09/03/17 09:55 12:03 13:17 WBC RBC Hgb Hct MCV MCH RDW Plt Count Lymph % (Auto) [place] % (Auto) Lymph # Seg Neutrophils % Seg Neuts % (Manual) Lymphocytes % (Manual) Nucleated RBC % Seg Neutrophils # Man Lymphocytes # (Manual) PT INR Fibrinogen D-Dimer POC ABG pH POC ABG pCO2 POC ABG pO2 Sodium Potassium Chloride Carbon Dioxide BUN Creatinine Glucose POC Glucose 155 H Lactic Acid 9.50 H* 9.90 H* Calcium Phosphorus Magnesium AST ALT Lactate Dehydrogenase C-Reactive Protein NT-Pro-B Natriuret Pep Total Protein Albumin Lipase Vancomycin Trough Lymph Enumerat CD4/CD8 % CD4 Cells Absolute CD4 Count % CD8 Cells % CD19 Cells Absolute CD19 Count Hep Bs Antibody, Quant Hep B Core Total Ab Hepatitis Be Antigen HIV-1 RNA PCR copies/ml HIV-1 RNA (PCR) log 09/03/17 09/03/17 09/03/17 15:55 17:13 18:02 WBC RBC Hgb Hct MCV MCH RDW Plt Count Lymph % (Auto) [place] % (Auto) Lymph # Seg Neutrophils % Seg Neuts % (Manual) Lymphocytes % (Manual) Nucleated RBC % Seg Neutrophils # Man Lymphocytes # (Manual) PT INR Fibrinogen D-Dimer POC ABG pH POC ABG pCO2 POC ABG pO2 Sodium Potassium Chloride Carbon Dioxide BUN Creatinine Glucose POC Glucose 171 H Lactic Acid 9.60 H* 9.00 H* Calcium Phosphorus Magnesium AST ALT Lactate Dehydrogenase C-Reactive Protein NT-Pro-B Natriuret Pep Total Protein Albumin Lipase Vancomycin Trough Lymph Enumerat CD4/CD8 % CD4 Cells Absolute CD4 Count % CD8 Cells % CD19 Cells Absolute CD19 Count Hep Bs Antibody, Quant Hep B Core Total Ab Hepatitis Be Antigen HIV-1 RNA PCR copies/ml HIV-1 RNA (PCR) log 09/03/17 09/03/17 09/04/17 20:29 23:02 04:00 WBC RBC Hgb Hct MCV MCH RDW Plt Count Lymph % (Auto) [place] % (Auto) Lymph # Seg Neutrophils % Seg Neuts % (Manual) Lymphocytes % (Manual) Nucleated RBC % Seg Neutrophils # Man Lymphocytes # (Manual) PT INR Fibrinogen D-Dimer POC ABG pH POC ABG pCO2 POC ABG pO2 Sodium Potassium Chloride Carbon Dioxide BUN Creatinine Glucose POC Glucose 156 H Lactic Acid 9.00 H* 3.00 H* Calcium Phosphorus Magnesium AST ALT Lactate Dehydrogenase C-Reactive Protein NT-Pro-B Natriuret Pep Total Protein Albumin Lipase Vancomycin Trough Lymph Enumerat CD4/CD8 % CD4 Cells Absolute CD4 Count % CD8 Cells % CD19 Cells Absolute CD19 Count Hep Bs Antibody, Quant Hep B Core Total Ab Hepatitis Be Antigen HIV-1 RNA PCR copies/ml HIV-1 RNA (PCR) log 09/04/17 09/04/17 09/04/17 04:00 04:00 09:00 WBC RBC 3.44 L Hgb 9.6 L Hct 29.0 L MCV MCH RDW 17.4 H Plt Count 124 L Lymph % (Auto) [place] % (Auto) Lymph # Seg Neutrophils % Seg Neuts % (Manual) 91.0 H Lymphocytes % (Manual) 3.0 L Nucleated RBC % 2.0 H Seg Neutrophils # Man 9.9 H Lymphocytes # (Manual) 0.3 L PT 28.4 H INR 2.47 H Fibrinogen D-Dimer POC ABG pH POC ABG pCO2 POC ABG pO2 Sodium Potassium Chloride 110.1 H Carbon Dioxide BUN 29 H Creatinine Glucose 192 H POC Glucose Lactic Acid Calcium 6.8 L Phosphorus Magnesium AST 361 H ALT 315 H Lactate Dehydrogenase C-Reactive Protein NT-Pro-B Natriuret Pep Total Protein Albumin 1.6 L Lipase Vancomycin Trough Lymph Enumerat CD4/CD8 % CD4 Cells Absolute CD4 Count % CD8 Cells % CD19 Cells Absolute CD19 Count Hep Bs Antibody, Quant Hep B Core Total Ab Hepatitis Be Antigen HIV-1 RNA PCR copies/ml HIV-1 RNA (PCR) log 09/04/17 09/04/17 09/04/17 09:00 12:00 17:23 WBC RBC Hgb Hct MCV MCH RDW Plt Count Lymph % (Auto) [place] % (Auto) Lymph # Seg Neutrophils % Seg Neuts % (Manual) Lymphocytes % (Manual) Nucleated RBC % Seg Neutrophils # Man Lymphocytes # (Manual) PT INR Fibrinogen 611 H D-Dimer POC ABG pH POC ABG pCO2 POC ABG pO2 Sodium Potassium Chloride Carbon Dioxide BUN Creatinine Glucose POC Glucose Lactic Acid 2.10 H* 3.40 H* Calcium Phosphorus Magnesium AST ALT Lactate Dehydrogenase C-Reactive Protein NT-Pro-B Natriuret Pep Total Protein Albumin Lipase Vancomycin Trough Lymph Enumerat CD4/CD8 % CD4 Cells Absolute CD4 Count % CD8 Cells % CD19 Cells Absolute CD19 Count Hep Bs Antibody, Quant Hep B Core Total Ab Hepatitis Be Antigen HIV-1 RNA PCR copies/ml HIV-1 RNA (PCR) log 09/04/17 09/04/17 09/04/17 17:23 17:47 22:30 WBC RBC Hgb Hct MCV MCH RDW Plt Count Lymph % (Auto) [place] % (Auto) Lymph # Seg Neutrophils % Seg Neuts % (Manual) Lymphocytes % (Manual) Nucleated RBC % Seg Neutrophils # Man Lymphocytes # (Manual) PT INR Fibrinogen D-Dimer POC ABG pH POC ABG pCO2 POC ABG pO2 Sodium Potassium Chloride Carbon Dioxide BUN Creatinine Glucose POC Glucose 107 H Lactic Acid 4.70 H* Calcium Phosphorus Magnesium AST ALT Lactate Dehydrogenase C-Reactive Protein NT-Pro-B Natriuret Pep Total Protein Albumin Lipase 12 L Vancomycin Trough Lymph Enumerat CD4/CD8 % CD4 Cells Absolute CD4 Count % CD8 Cells % CD19 Cells Absolute CD19 Count Hep Bs Antibody, Quant Hep B Core Total Ab Hepatitis Be Antigen HIV-1 RNA PCR copies/ml HIV-1 RNA (PCR) log 09/04/17 09/05/17 09/05/17 23:08 05:31 06:00 WBC RBC Hgb Hct MCV MCH RDW Plt Count Lymph % (Auto) [place] % (Auto) Lymph # Seg Neutrophils % Seg Neuts % (Manual) Lymphocytes % (Manual) Nucleated RBC % Seg Neutrophils # Man Lymphocytes # (Manual) PT INR Fibrinogen D-Dimer POC ABG pH 7.226 L POC ABG pCO2 65.4 H POC ABG pO2 61 L Sodium Potassium Chloride 112.7 H Carbon Dioxide BUN 31 H Creatinine Glucose 132 H POC Glucose 109 H Lactic Acid Calcium 7.7 L Phosphorus Magnesium AST 834 H ALT 898 H Lactate Dehydrogenase C-Reactive Protein NT-Pro-B Natriuret Pep Total Protein Albumin 1.4 L Lipase Vancomycin Trough Lymph Enumerat CD4/CD8 % CD4 Cells Absolute CD4 Count % CD8 Cells % CD19 Cells Absolute CD19 Count Hep Bs Antibody, Quant Hep B Core Total Ab Hepatitis Be Antigen HIV-1 RNA PCR copies/ml HIV-1 RNA (PCR) log 09/05/17 09/05/17 09/05/17 06:00 06:35 10:26 WBC RBC Hgb Hct MCV MCH RDW Plt Count Lymph % (Auto) [place] % (Auto) Lymph # Seg Neutrophils % Seg Neuts % (Manual) Lymphocytes % (Manual) Nucleated RBC % Seg Neutrophils # Man Lymphocytes # (Manual) PT INR Fibrinogen D-Dimer POC ABG pH 7.311 L POC ABG pCO2 58.5 H POC ABG pO2 213 H Sodium Potassium Chloride Carbon Dioxide BUN Creatinine Glucose POC Glucose 110 H Lactic Acid 4.50 H* Calcium Phosphorus Magnesium AST ALT Lactate Dehydrogenase C-Reactive Protein NT-Pro-B Natriuret Pep Total Protein Albumin Lipase Vancomycin Trough Lymph Enumerat CD4/CD8 % CD4 Cells Absolute CD4 Count % CD8 Cells % CD19 Cells Absolute CD19 Count Hep Bs Antibody, Quant Hep B Core Total Ab Hepatitis Be Antigen HIV-1 RNA PCR copies/ml HIV-1 RNA (PCR) log 09/05/17 09/05/17 09/05/17 10:55 10:55 10:55 WBC 11.1 H RBC 3.38 L Hgb 9.3 L Hct 28.7 L MCV MCH RDW 16.7 H Plt Count 118 L Lymph % (Auto) [place] % (Auto) Lymph # Seg Neutrophils % Seg Neuts % (Manual) 92.0 H Lymphocytes % (Manual) 4.0 L Nucleated RBC % 2.0 H Seg Neutrophils # Man 10.2 H Lymphocytes # (Manual) 0.4 L PT INR Fibrinogen D-Dimer POC ABG pH POC ABG pCO2 POC ABG pO2 Sodium Potassium Chloride Carbon Dioxide BUN Creatinine Glucose POC Glucose Lactic Acid 3.60 H* Calcium Phosphorus Magnesium AST ALT Lactate Dehydrogenase 571 H C-Reactive Protein NT-Pro-B Natriuret Pep Total Protein Albumin Lipase Vancomycin Trough Lymph Enumerat CD4/CD8 % CD4 Cells Absolute CD4 Count % CD8 Cells % CD19 Cells Absolute CD19 Count Hep Bs Antibody, Quant Hep B Core Total Ab Hepatitis Be Antigen HIV-1 RNA PCR copies/ml HIV-1 RNA (PCR) log 09/05/17 09/05/17 09/05/17 12:05 14:30 14:30 WBC RBC Hgb Hct MCV MCH RDW Plt Count Lymph % (Auto) [place] % (Auto) Lymph # Seg Neutrophils % Seg Neuts % (Manual) Lymphocytes % (Manual) Nucleated RBC % Seg Neutrophils # Man Lymphocytes # (Manual) PT INR Fibrinogen D-Dimer POC ABG pH POC ABG pCO2 POC ABG pO2 Sodium Potassium Chloride Carbon Dioxide BUN Creatinine Glucose POC Glucose 148 H Lactic Acid Calcium Phosphorus Magnesium AST ALT Lactate Dehydrogenase C-Reactive Protein NT-Pro-B Natriuret Pep Total Protein Albumin Lipase Vancomycin Trough Lymph Enumerat CD4/CD8 0.10 L % CD4 Cells 7 L Absolute CD4 Count 101 L % CD8 Cells 66 H % CD19 Cells 4 L Absolute CD19 Count 60 L Hep Bs Antibody, Quant Hep B Core Total Ab Hepatitis Be Antigen HIV-1 RNA PCR copies/ml 1750 H HIV-1 RNA (PCR) log 3.24 H 09/05/17 09/05/17 09/05/17 16:30 17:42 19:55 WBC RBC Hgb Hct MCV MCH RDW Plt Count Lymph % (Auto) [place] % (Auto) Lymph # Seg Neutrophils % Seg Neuts % (Manual) Lymphocytes % (Manual) Nucleated RBC % Seg Neutrophils # Man Lymphocytes # (Manual) PT INR Fibrinogen D-Dimer POC ABG pH POC ABG pCO2 POC ABG pO2 Sodium Potassium Chloride Carbon Dioxide BUN Creatinine Glucose POC Glucose 183 H Lactic Acid 3.50 H* 3.60 H* Calcium Phosphorus Magnesium AST ALT Lactate Dehydrogenase C-Reactive Protein NT-Pro-B Natriuret Pep Total Protein Albumin Lipase Vancomycin Trough Lymph Enumerat CD4/CD8 % CD4 Cells Absolute CD4 Count % CD8 Cells % CD19 Cells Absolute CD19 Count Hep Bs Antibody, Quant Hep B Core Total Ab Hepatitis Be Antigen HIV-1 RNA PCR copies/ml HIV-1 RNA (PCR) log 09/05/17 09/06/17 09/06/17 23:29 03:58 05:33 WBC RBC Hgb Hct MCV MCH RDW Plt Count Lymph % (Auto) [place] % (Auto) Lymph # Seg Neutrophils % Seg Neuts % (Manual) Lymphocytes % (Manual) Nucleated RBC % Seg Neutrophils # Man Lymphocytes # (Manual) PT INR Fibrinogen D-Dimer POC ABG pH POC ABG pCO2 62.5 H POC ABG pO2 141 H Sodium Potassium Chloride Carbon Dioxide BUN Creatinine Glucose POC Glucose 203 H 207 H Lactic Acid Calcium Phosphorus Magnesium AST ALT Lactate Dehydrogenase C-Reactive Protein NT-Pro-B Natriuret Pep Total Protein Albumin Lipase Vancomycin Trough Lymph Enumerat CD4/CD8 % CD4 Cells Absolute CD4 Count % CD8 Cells % CD19 Cells Absolute CD19 Count Hep Bs Antibody, Quant Hep B Core Total Ab Hepatitis Be Antigen HIV-1 RNA PCR copies/ml HIV-1 RNA (PCR) log 09/06/17 09/06/17 09/06/17 06:15 06:15 06:15 WBC RBC 3.26 L Hgb 9.0 L Hct 27.5 L MCV MCH RDW 16.7 H Plt Count 104 L Lymph % (Auto) [place] % (Auto) Lymph # Seg Neutrophils % Seg Neuts % (Manual) 97.0 H Lymphocytes % (Manual) 2.0 L Nucleated RBC % Seg Neutrophils # Man 8.1 H Lymphocytes # (Manual) 0.2 L PT INR Fibrinogen D-Dimer POC ABG pH POC ABG pCO2 POC ABG pO2 Sodium 150 H Potassium Chloride 110.9 H Carbon Dioxide 31 H BUN 34 H Creatinine Glucose 207 H POC Glucose Lactic Acid 2.90 H* Calcium 8.2 L Phosphorus Magnesium AST 346 H ALT 634 H Lactate Dehydrogenase C-Reactive Protein NT-Pro-B Natriuret Pep Total Protein Albumin 1.5 L Lipase Vancomycin Trough Lymph Enumerat CD4/CD8 % CD4 Cells Absolute CD4 Count % CD8 Cells % CD19 Cells Absolute CD19 Count Hep Bs Antibody, Quant Hep B Core Total Ab Hepatitis Be Antigen HIV-1 RNA PCR copies/ml HIV-1 RNA (PCR) log 09/06/17 09/06/17 09/06/17 08:03 11:32 18:04 WBC RBC Hgb Hct MCV MCH RDW Plt Count Lymph % (Auto) [place] % (Auto) Lymph # Seg Neutrophils % Seg Neuts % (Manual) Lymphocytes % (Manual) Nucleated RBC % Seg Neutrophils # Man Lymphocytes # (Manual) PT INR Fibrinogen D-Dimer POC ABG pH POC ABG pCO2 POC ABG pO2 Sodium Potassium Chloride Carbon Dioxide BUN Creatinine Glucose POC Glucose 169 H 130 H Lactic Acid 2.90 H* Calcium Phosphorus Magnesium AST ALT Lactate Dehydrogenase C-Reactive Protein NT-Pro-B Natriuret Pep Total Protein Albumin Lipase Vancomycin Trough Lymph Enumerat CD4/CD8 % CD4 Cells Absolute CD4 Count % CD8 Cells % CD19 Cells Absolute CD19 Count Hep Bs Antibody, Quant Hep B Core Total Ab Hepatitis Be Antigen HIV-1 RNA PCR copies/ml HIV-1 RNA (PCR) log 09/07/17 09/07/17 09/07/17 00:03 04:13 04:13 WBC RBC Hgb Hct MCV MCH RDW Plt Count Lymph % (Auto) [place] % (Auto) Lymph # Seg Neutrophils % Seg Neuts % (Manual) Lymphocytes % (Manual) Nucleated RBC % Seg Neutrophils # Man Lymphocytes # (Manual) PT INR Fibrinogen D-Dimer POC ABG pH POC ABG pCO2 POC ABG pO2 Sodium 152 H Potassium 3.5 L Chloride 114.9 H Carbon Dioxide 34 H BUN 35 H Creatinine Glucose 149 H POC Glucose 123 H Lactic Acid Calcium Phosphorus Magnesium AST 150 H ALT 381 H Lactate Dehydrogenase C-Reactive Protein NT-Pro-B Natriuret Pep Total Protein Albumin 1.3 L Lipase Vancomycin Trough Lymph Enumerat CD4/CD8 % CD4 Cells Absolute CD4 Count % CD8 Cells % CD19 Cells Absolute CD19 Count Hep Bs Antibody, Quant Hep B Core Total Ab Reactive H Hepatitis Be Antigen HIV-1 RNA PCR copies/ml HIV-1 RNA (PCR) log 09/07/17 09/07/17 09/07/17 04:13 04:13 04:33 WBC RBC Hgb Hct MCV MCH RDW Plt Count Lymph % (Auto) [place] % (Auto) Lymph # Seg Neutrophils % Seg Neuts % (Manual) Lymphocytes % (Manual) Nucleated RBC % Seg Neutrophils # Man Lymphocytes # (Manual) PT INR Fibrinogen D-Dimer POC ABG pH 7.590 H POC ABG pCO2 POC ABG pO2 179 H Sodium Potassium Chloride Carbon Dioxide BUN Creatinine Glucose POC Glucose Lactic Acid Calcium Phosphorus Magnesium AST ALT Lactate Dehydrogenase C-Reactive Protein NT-Pro-B Natriuret Pep Total Protein Albumin Lipase Vancomycin Trough Lymph Enumerat CD4/CD8 % CD4 Cells Absolute CD4 Count % CD8 Cells % CD19 Cells Absolute CD19 Count Hep Bs Antibody, Quant <5 L Hep B Core Total Ab Hepatitis Be Antigen Reactive H HIV-1 RNA PCR copies/ml HIV-1 RNA (PCR) log 02/09/07/17 09/07/17 05:05 08:20 11:34 WBC 11.9 H RBC 3.11 L Hgb 8.4 L Hct 26.0 L MCV MCH 27 L RDW 16.2 H Plt Count 109 L Lymph % (Auto) [place] % (Auto) Lymph # Seg Neutrophils % Seg Neuts % (Manual) 93.0 H Lymphocytes % (Manual) 1.0 L Nucleated RBC % Seg Neutrophils # Man 11.1 H Lymphocytes # (Manual) 0.1 L PT INR Fibrinogen D-Dimer POC ABG pH POC ABG pCO2 POC ABG pO2 Sodium Potassium Chloride Carbon Dioxide BUN Creatinine Glucose POC Glucose 168 H 156 H Lactic Acid Calcium Phosphorus Magnesium AST ALT Lactate Dehydrogenase C-Reactive Protein NT-Pro-B Natriuret Pep Total Protein Albumin Lipase Vancomycin Trough Lymph Enumerat CD4/CD8 % CD4 Cells Absolute CD4 Count % CD8 Cells % CD19 Cells Absolute CD19 Count Hep Bs Antibody, Quant Hep B Core Total Ab Hepatitis Be Antigen HIV-1 RNA PCR copies/ml HIV-1 RNA (PCR) log 09/07/17 09/07/17 09/07/17 18:13 20:14 20:14 WBC 14.6 H RBC 3.36 L Hgb 9.2 L Hct 28.3 L MCV MCH 27 L RDW 16.1 H Plt Count 120 L Lymph % (Auto) [place] % (Auto) Lymph # Seg Neutrophils % Seg Neuts % (Manual) 93.0 H Lymphocytes % (Manual) 2.0 L Nucleated RBC % Seg Neutrophils # Man 13.6 H Lymphocytes # (Manual) 0.3 L PT INR Fibrinogen D-Dimer POC ABG pH POC ABG pCO2 POC ABG pO2 Sodium 154 H Potassium 3.4 L Chloride 114.7 H Carbon Dioxide 34 H BUN 37 H Creatinine Glucose 131 H POC Glucose 136 H Lactic Acid Calcium Phosphorus Magnesium AST ALT Lactate Dehydrogenase C-Reactive Protein NT-Pro-B Natriuret Pep Total Protein Albumin Lipase Vancomycin Trough Lymph Enumerat CD4/CD8 % CD4 Cells Absolute CD4 Count % CD8 Cells % CD19 Cells Absolute CD19 Count Hep Bs Antibody, Quant Hep B Core Total Ab Hepatitis Be Antigen HIV-1 RNA PCR copies/ml HIV-1 RNA (PCR) log 09/08/17 09/08/17 09/08/17 05:15 05:30 05:30 WBC 13.6 H RBC 3.29 L Hgb 9.1 L Hct 27.4 L MCV 83 L MCH RDW 15.8 H Plt Count 111 L Lymph % (Auto) [place] % (Auto) Lymph # Seg Neutrophils % Seg Neuts % (Manual) 94.0 H Lymphocytes % (Manual) 4.0 L Nucleated RBC % 1.0 H Seg Neutrophils # Man 12.8 H Lymphocytes # (Manual) 0.5 L PT INR Fibrinogen D-Dimer POC ABG pH 7.460 H POC ABG pCO2 54.7 H POC ABG pO2 209 H Sodium Potassium Chloride Carbon Dioxide BUN Creatinine Glucose POC Glucose Lactic Acid Calcium Phosphorus Magnesium AST ALT Lactate Dehydrogenase C-Reactive Protein 8.70 H NT-Pro-B Natriuret Pep Total Protein Albumin Lipase Vancomycin Trough Lymph Enumerat CD4/CD8 % CD4 Cells Absolute CD4 Count % CD8 Cells % CD19 Cells Absolute CD19 Count Hep Bs Antibody, Quant Hep B Core Total Ab Hepatitis Be Antigen HIV-1 RNA PCR copies/ml HIV-1 RNA (PCR) log 09/08/17 09/08/17 09/08/17 05:30 12:24 17:19 WBC RBC Hgb Hct MCV MCH RDW Plt Count Lymph % (Auto) [place] % (Auto) Lymph # Seg Neutrophils % Seg Neuts % (Manual) Lymphocytes % (Manual) Nucleated RBC % Seg Neutrophils # Man Lymphocytes # (Manual) PT INR Fibrinogen D-Dimer POC ABG pH POC ABG pCO2 POC ABG pO2 Sodium 154 H Potassium Chloride 114.3 H Carbon Dioxide 36 H BUN 39 H Creatinine Glucose 163 H POC Glucose 181 H 170 H Lactic Acid Calcium Phosphorus Magnesium AST ALT Lactate Dehydrogenase C-Reactive Protein NT-Pro-B Natriuret Pep Total Protein Albumin Lipase Vancomycin Trough Lymph Enumerat CD4/CD8 % CD4 Cells Absolute CD4 Count % CD8 Cells % CD19 Cells Absolute CD19 Count Hep Bs Antibody, Quant Hep B Core Total Ab Hepatitis Be Antigen HIV-1 RNA PCR copies/ml HIV-1 RNA (PCR) log 09/08/17 09/09/17 09/09/17 23:51 04:00 04:00 WBC 20.1 H RBC 3.37 L Hgb 9.2 L Hct 28.0 L MCV 83 L MCH 27 L RDW 15.7 H Plt Count 123 L Lymph % (Auto) [place] % (Auto) Lymph # Seg Neutrophils % Seg Neuts % (Manual) 86.0 H Lymphocytes % (Manual) 9.0 L Nucleated RBC % Seg Neutrophils # Man 17.3 H Lymphocytes # (Manual) PT INR Fibrinogen D-Dimer POC ABG pH POC ABG pCO2 POC ABG pO2 Sodium 150 H Potassium 3.0 L Chloride 107.7 H Carbon Dioxide 35 H BUN 39 H Creatinine Glucose 174 H POC Glucose 185 H Lactic Acid Calcium Phosphorus Magnesium AST ALT Lactate Dehydrogenase C-Reactive Protein NT-Pro-B Natriuret Pep Total Protein Albumin Lipase Vancomycin Trough Lymph Enumerat CD4/CD8 % CD4 Cells Absolute CD4 Count % CD8 Cells % CD19 Cells Absolute CD19 Count Hep Bs Antibody, Quant Hep B Core Total Ab Hepatitis Be Antigen HIV-1 RNA PCR copies/ml HIV-1 RNA (PCR) log 09/09/17 09/09/17 09/09/17 04:34 05:57 12:04 WBC RBC Hgb Hct MCV MCH RDW Plt Count Lymph % (Auto) [place] % (Auto) Lymph # Seg Neutrophils % Seg Neuts % (Manual) Lymphocytes % (Manual) Nucleated RBC % Seg Neutrophils # Man Lymphocytes # (Manual) PT INR Fibrinogen D-Dimer POC ABG pH 7.575 H POC ABG pCO2 POC ABG pO2 63 L Sodium Potassium Chloride Carbon Dioxide BUN Creatinine Glucose POC Glucose 170 H 126 H Lactic Acid Calcium Phosphorus Magnesium AST ALT Lactate Dehydrogenase C-Reactive Protein NT-Pro-B Natriuret Pep Total Protein Albumin Lipase Vancomycin Trough Lymph Enumerat CD4/CD8 % CD4 Cells Absolute CD4 Count % CD8 Cells % CD19 Cells Absolute CD19 Count Hep Bs Antibody, Quant Hep B Core Total Ab Hepatitis Be Antigen HIV-1 RNA PCR copies/ml HIV-1 RNA (PCR) log 09/09/17 09/10/17 09/10/17 17:31 00:02 03:46 WBC RBC Hgb Hct MCV MCH RDW Plt Count Lymph % (Auto) [place] % (Auto) Lymph # Seg Neutrophils % Seg Neuts % (Manual) Lymphocytes % (Manual) Nucleated RBC % Seg Neutrophils # Man Lymphocytes # (Manual) PT INR Fibrinogen D-Dimer POC ABG pH 7.529 H POC ABG pCO2 45.6 H POC ABG pO2 69 L Sodium Potassium Chloride Carbon Dioxide BUN Creatinine Glucose POC Glucose 180 H 190 H Lactic Acid Calcium Phosphorus Magnesium AST ALT Lactate Dehydrogenase C-Reactive Protein NT-Pro-B Natriuret Pep Total Protein Albumin Lipase Vancomycin Trough Lymph Enumerat CD4/CD8 % CD4 Cells Absolute CD4 Count % CD8 Cells % CD19 Cells Absolute CD19 Count Hep Bs Antibody, Quant Hep B Core Total Ab Hepatitis Be Antigen HIV-1 RNA PCR copies/ml HIV-1 RNA (PCR) log 09/10/17 09/10/17 09/10/17 04:44 04:50 06:19 WBC 21.7 H RBC 3.32 L Hgb 9.2 L Hct 28.0 L MCV MCH RDW 15.3 H Plt Count Lymph % (Auto) [place] % (Auto) Lymph # Seg Neutrophils % Seg Neuts % (Manual) 96.0 H Lymphocytes % (Manual) 4.0 L Nucleated RBC % Seg Neutrophils # Man 20.8 H Lymphocytes # (Manual) 0.9 L PT INR Fibrinogen D-Dimer POC ABG pH POC ABG pCO2 POC ABG pO2 Sodium 149 H Potassium Chloride 109.8 H Carbon Dioxide 36 H BUN 34 H Creatinine 0.7 L Glucose 139 H POC Glucose 154 H Lactic Acid Calcium Phosphorus Magnesium AST ALT Lactate Dehydrogenase C-Reactive Protein NT-Pro-B Natriuret Pep Total Protein Albumin Lipase Vancomycin Trough Lymph Enumerat CD4/CD8 % CD4 Cells Absolute CD4 Count % CD8 Cells % CD19 Cells Absolute CD19 Count Hep Bs Antibody, Quant Hep B Core Total Ab Hepatitis Be Antigen HIV-1 RNA PCR copies/ml HIV-1 RNA (PCR) log 09/10/17 09/10/17 09/10/17 11:58 17:15 23:24 WBC RBC Hgb Hct MCV MCH RDW Plt Count Lymph % (Auto) [place] % (Auto) Lymph # Seg Neutrophils % Seg Neuts % (Manual) Lymphocytes % (Manual) Nucleated RBC % Seg Neutrophils # Man Lymphocytes # (Manual) PT INR Fibrinogen D-Dimer POC ABG pH POC ABG pCO2 POC ABG pO2 Sodium Potassium Chloride Carbon Dioxide BUN Creatinine Glucose POC Glucose 204 H 193 H 177 H Lactic Acid Calcium Phosphorus Magnesium AST ALT Lactate Dehydrogenase C-Reactive Protein NT-Pro-B Natriuret Pep Total Protein Albumin Lipase Vancomycin Trough Lymph Enumerat CD4/CD8 % CD4 Cells Absolute CD4 Count % CD8 Cells % CD19 Cells Absolute CD19 Count Hep Bs Antibody, Quant Hep B Core Total Ab Hepatitis Be Antigen HIV-1 RNA PCR copies/ml HIV-1 RNA (PCR) log 09/11/17 09/11/17 09/11/17 04:03 05:39 06:00 WBC 15.9 H RBC 2.93 L Hgb 7.9 L Hct 24.9 L MCV MCH 27 L RDW 15.6 H Plt Count Lymph % (Auto) [place] % (Auto) Lymph # Seg Neutrophils % Seg Neuts % (Manual) 99.0 H Lymphocytes % (Manual) 0 L Nucleated RBC % Seg Neutrophils # Man 15.7 H Lymphocytes # (Manual) 0.0 L PT INR Fibrinogen D-Dimer POC ABG pH 7.572 H POC ABG pCO2 POC ABG pO2 113 H Sodium Potassium Chloride Carbon Dioxide BUN Creatinine Glucose POC Glucose 144 H Lactic Acid Calcium Phosphorus Magnesium AST ALT Lactate Dehydrogenase C-Reactive Protein NT-Pro-B Natriuret Pep Total Protein Albumin Lipase Vancomycin Trough Lymph Enumerat CD4/CD8 % CD4 Cells Absolute CD4 Count % CD8 Cells % CD19 Cells Absolute CD19 Count Hep Bs Antibody, Quant Hep B Core Total Ab Hepatitis Be Antigen HIV-1 RNA PCR copies/ml HIV-1 RNA (PCR) log 09/11/17 09/11/17 09/11/17 06:00 11:48 18:01 WBC RBC Hgb Hct MCV MCH RDW Plt Count Lymph % (Auto) [place] % (Auto) Lymph # Seg Neutrophils % Seg Neuts % (Manual) Lymphocytes % (Manual) Nucleated RBC % Seg Neutrophils # Man Lymphocytes # (Manual) PT INR Fibrinogen D-Dimer POC ABG pH POC ABG pCO2 POC ABG pO2 Sodium Potassium Chloride 108.1 H Carbon Dioxide BUN 30 H Creatinine 0.6 L Glucose 132 H POC Glucose 179 H 135 H Lactic Acid Calcium 7.4 L D Phosphorus Magnesium AST ALT Lactate Dehydrogenase C-Reactive Protein NT-Pro-B Natriuret Pep Total Protein Albumin Lipase Vancomycin Trough Lymph Enumerat CD4/CD8 % CD4 Cells Absolute CD4 Count % CD8 Cells % CD19 Cells Absolute CD19 Count Hep Bs Antibody, Quant Hep B Core Total Ab Hepatitis Be Antigen HIV-1 RNA PCR copies/ml HIV-1 RNA (PCR) log 09/12/17 09/12/17 09/12/17 00:22 04:24 06:41 WBC RBC Hgb Hct MCV MCH RDW Plt Count Lymph % (Auto) [place] % (Auto) Lymph # Seg Neutrophils % Seg Neuts % (Manual) Lymphocytes % (Manual) Nucleated RBC % Seg Neutrophils # Man Lymphocytes # (Manual) PT INR Fibrinogen D-Dimer POC ABG pH POC ABG pCO2 53.5 H POC ABG pO2 79 L Sodium Potassium Chloride Carbon Dioxide BUN Creatinine Glucose POC Glucose 164 H 202 H Lactic Acid Calcium Phosphorus Magnesium AST ALT Lactate Dehydrogenase C-Reactive Protein NT-Pro-B Natriuret Pep Total Protein Albumin Lipase Vancomycin Trough Lymph Enumerat CD4/CD8 % CD4 Cells Absolute CD4 Count % CD8 Cells % CD19 Cells Absolute CD19 Count Hep Bs Antibody, Quant Hep B Core Total Ab Hepatitis Be Antigen HIV-1 RNA PCR copies/ml HIV-1 RNA (PCR) log 09/12/17 09/12/17 09/12/17 12:17 17:28 21:44 WBC RBC Hgb Hct MCV MCH RDW Plt Count Lymph % (Auto) [place] % (Auto) Lymph # Seg Neutrophils % Seg Neuts % (Manual) Lymphocytes % (Manual) Nucleated RBC % Seg Neutrophils # Man Lymphocytes # (Manual) PT INR Fibrinogen D-Dimer POC ABG pH POC ABG pCO2 POC ABG pO2 Sodium Potassium Chloride Carbon Dioxide BUN Creatinine Glucose POC Glucose 157 H 189 H Lactic Acid Calcium Phosphorus Magnesium AST ALT Lactate Dehydrogenase C-Reactive Protein 1.60 H NT-Pro-B Natriuret Pep Total Protein Albumin Lipase Vancomycin Trough Lymph Enumerat CD4/CD8 % CD4 Cells Absolute CD4 Count % CD8 Cells % CD19 Cells Absolute CD19 Count Hep Bs Antibody, Quant Hep B Core Total Ab Hepatitis Be Antigen HIV-1 RNA PCR copies/ml HIV-1 RNA (PCR) log 09/13/17 09/13/17 09/13/17 00:16 03:56 05:47 WBC RBC Hgb Hct MCV MCH RDW Plt Count Lymph % (Auto) [place] % (Auto) Lymph # Seg Neutrophils % Seg Neuts % (Manual) Lymphocytes % (Manual) Nucleated RBC % Seg Neutrophils # Man Lymphocytes # (Manual) PT INR Fibrinogen D-Dimer POC ABG pH 7.457 H POC ABG pCO2 49.9 H POC ABG pO2 Sodium Potassium Chloride Carbon Dioxide BUN Creatinine Glucose POC Glucose 164 H 190 H Lactic Acid Calcium Phosphorus Magnesium AST ALT Lactate Dehydrogenase C-Reactive Protein NT-Pro-B Natriuret Pep Total Protein Albumin Lipase Vancomycin Trough Lymph Enumerat CD4/CD8 % CD4 Cells Absolute CD4 Count % CD8 Cells % CD19 Cells Absolute CD19 Count Hep Bs Antibody, Quant Hep B Core Total Ab Hepatitis Be Antigen HIV-1 RNA PCR copies/ml HIV-1 RNA (PCR) log 09/13/17 09/13/17 09/13/17 09:24 11:48 17:26 WBC RBC Hgb Hct MCV MCH RDW Plt Count Lymph % (Auto) [place] % (Auto) Lymph # Seg Neutrophils % Seg Neuts % (Manual) Lymphocytes % (Manual) Nucleated RBC % Seg Neutrophils # Man Lymphocytes # (Manual) PT INR Fibrinogen D-Dimer POC ABG pH POC ABG pCO2 POC ABG pO2 Sodium Potassium Chloride Carbon Dioxide 31 H BUN 33 H Creatinine 0.6 L Glucose 177 H POC Glucose 196 H 163 H Lactic Acid Calcium Phosphorus Magnesium AST ALT Lactate Dehydrogenase C-Reactive Protein NT-Pro-B Natriuret Pep Total Protein Albumin Lipase Vancomycin Trough Lymph Enumerat CD4/CD8 % CD4 Cells Absolute CD4 Count % CD8 Cells % CD19 Cells Absolute CD19 Count Hep Bs Antibody, Quant Hep B Core Total Ab Hepatitis Be Antigen HIV-1 RNA PCR copies/ml HIV-1 RNA (PCR) log 09/13/17 09/14/17 09/14/17 23:59 05:33 06:14 WBC RBC Hgb Hct MCV MCH RDW Plt Count Lymph % (Auto) [place] % (Auto) Lymph # Seg Neutrophils % Seg Neuts % (Manual) Lymphocytes % (Manual) Nucleated RBC % Seg Neutrophils # Man Lymphocytes # (Manual) PT INR Fibrinogen D-Dimer POC ABG pH POC ABG pCO2 52.0 H POC ABG pO2 Sodium Potassium Chloride Carbon Dioxide BUN Creatinine Glucose POC Glucose 162 H 136 H Lactic Acid Calcium Phosphorus Magnesium AST ALT Lactate Dehydrogenase C-Reactive Protein NT-Pro-B Natriuret Pep Total Protein Albumin Lipase Vancomycin Trough Lymph Enumerat CD4/CD8 % CD4 Cells Absolute CD4 Count % CD8 Cells % CD19 Cells Absolute CD19 Count Hep Bs Antibody, Quant Hep B Core Total Ab Hepatitis Be Antigen HIV-1 RNA PCR copies/ml HIV-1 RNA (PCR) log 09/14/17 09/14/17 09/14/17 12:00 12:15 18:08 WBC RBC Hgb Hct MCV MCH RDW Plt Count Lymph % (Auto) [place] % (Auto) Lymph # Seg Neutrophils % Seg Neuts % (Manual) Lymphocytes % (Manual) Nucleated RBC % Seg Neutrophils # Man Lymphocytes # (Manual) PT INR Fibrinogen D-Dimer POC ABG pH POC ABG pCO2 POC ABG pO2 Sodium Potassium Chloride Carbon Dioxide BUN Creatinine Glucose POC Glucose 154 H 152 H Lactic Acid Calcium Phosphorus Magnesium AST ALT Lactate Dehydrogenase C-Reactive Protein NT-Pro-B Natriuret Pep Total Protein Albumin Lipase Vancomycin Trough 22.0 H Lymph Enumerat CD4/CD8 % CD4 Cells Absolute CD4 Count % CD8 Cells % CD19 Cells Absolute CD19 Count Hep Bs Antibody, Quant Hep B Core Total Ab Hepatitis Be Antigen HIV-1 RNA PCR copies/ml HIV-1 RNA (PCR) log 09/14/17 09/15/17 09/15/17 23:38 09:50 09:50 WBC RBC 3.64 L Hgb 10.3 L Hct 31.1 L MCV MCH RDW 15.8 H Plt Count Lymph % (Auto) [place] % (Auto) Lymph # Seg Neutrophils % Seg Neuts % (Manual) Lymphocytes % (Manual) Nucleated RBC % Seg Neutrophils # Man Lymphocytes # (Manual) PT INR Fibrinogen D-Dimer POC ABG pH POC ABG pCO2 POC ABG pO2 Sodium Potassium Chloride Carbon Dioxide BUN 26 H Creatinine 0.6 L Glucose POC Glucose 110 H Lactic Acid Calcium Phosphorus Magnesium AST 79 H ALT 134 H Lactate Dehydrogenase C-Reactive Protein NT-Pro-B Natriuret Pep Total Protein Albumin 2.1 L Lipase Vancomycin Trough Lymph Enumerat CD4/CD8 % CD4 Cells Absolute CD4 Count % CD8 Cells % CD19 Cells Absolute CD19 Count Hep Bs Antibody, Quant Hep B Core Total Ab Hepatitis Be Antigen HIV-1 RNA PCR copies/ml HIV-1 RNA (PCR) log 09/15/17 09/16/17 09/16/17 09:50 05:46 06:51 WBC RBC 3.59 L Hgb 10.2 L Hct 30.5 L MCV MCH RDW 16.1 H Plt Count Lymph % (Auto) 12.9 L [place] % (Auto) 9.6 H Lymph # 1.0 L Seg Neutrophils % 75.7 H Seg Neuts % (Manual) Lymphocytes % (Manual) Nucleated RBC % Seg Neutrophils # Man Lymphocytes # (Manual) PT INR Fibrinogen D-Dimer POC ABG pH POC ABG pCO2 POC ABG pO2 Sodium Potassium Chloride Carbon Dioxide BUN Creatinine Glucose POC Glucose 132 H Lactic Acid Calcium Phosphorus Magnesium AST ALT Lactate Dehydrogenase C-Reactive Protein NT-Pro-B Natriuret Pep 4222 H Total Protein Albumin Lipase Vancomycin Trough Lymph Enumerat CD4/CD8 % CD4 Cells Absolute CD4 Count % CD8 Cells % CD19 Cells Absolute CD19 Count Hep Bs Antibody, Quant Hep B Core Total Ab Hepatitis Be Antigen HIV-1 RNA PCR copies/ml HIV-1 RNA (PCR) log 09/16/17 09/16/17 09/16/17 06:51 11:53 17:43 WBC RBC Hgb Hct MCV MCH RDW Plt Count Lymph % (Auto) [place] % (Auto) Lymph # Seg Neutrophils % Seg Neuts % (Manual) Lymphocytes % (Manual) Nucleated RBC % Seg Neutrophils # Man Lymphocytes # (Manual) PT INR Fibrinogen D-Dimer POC ABG pH POC ABG pCO2 POC ABG pO2 Sodium Potassium Chloride Carbon Dioxide BUN 33 H Creatinine 0.7 L Glucose 115 H POC Glucose 107 H 189 H Lactic Acid Calcium Phosphorus Magnesium AST ALT Lactate Dehydrogenase C-Reactive Protein NT-Pro-B Natriuret Pep Total Protein Albumin Lipase Vancomycin Trough Lymph Enumerat CD4/CD8 % CD4 Cells Absolute CD4 Count % CD8 Cells % CD19 Cells Absolute CD19 Count Hep Bs Antibody, Quant Hep B Core Total Ab Hepatitis Be Antigen HIV-1 RNA PCR copies/ml HIV-1 RNA (PCR) log 09/17/17 09/17/17 09/17/17 00:00 06:03 12:15 WBC RBC Hgb Hct MCV MCH RDW Plt Count Lymph % (Auto) [place] % (Auto) Lymph # Seg Neutrophils % Seg Neuts % (Manual) Lymphocytes % (Manual) Nucleated RBC % Seg Neutrophils # Man Lymphocytes # (Manual) PT INR Fibrinogen D-Dimer POC ABG pH POC ABG pCO2 POC ABG pO2 Sodium Potassium Chloride Carbon Dioxide BUN Creatinine Glucose POC Glucose 149 H 126 H 168 H Lactic Acid Calcium Phosphorus Magnesium AST ALT Lactate Dehydrogenase C-Reactive Protein NT-Pro-B Natriuret Pep Total Protein Albumin Lipase Vancomycin Trough Lymph Enumerat CD4/CD8 % CD4 Cells Absolute CD4 Count % CD8 Cells % CD19 Cells Absolute CD19 Count Hep Bs Antibody, Quant Hep B Core Total Ab Hepatitis Be Antigen HIV-1 RNA PCR copies/ml HIV-1 RNA (PCR) log 09/17/17 09/18/17 17:13 00:22 WBC RBC Hgb Hct MCV MCH RDW Plt Count Lymph % (Auto) [place] % (Auto) Lymph # Seg Neutrophils % Seg Neuts % (Manual) Lymphocytes % (Manual) Nucleated RBC % Seg Neutrophils # Man Lymphocytes # (Manual) PT INR Fibrinogen D-Dimer POC ABG pH POC ABG pCO2 POC ABG pO2 Sodium Potassium Chloride Carbon Dioxide BUN Creatinine Glucose POC Glucose 162 H 132 H Lactic Acid Calcium Phosphorus Magnesium AST ALT Lactate Dehydrogenase C-Reactive Protein NT-Pro-B Natriuret Pep Total Protein Albumin Lipase Vancomycin Trough Lymph Enumerat CD4/CD8 % CD4 Cells Absolute CD4 Count % CD8 Cells % CD19 Cells Absolute CD19 Count Hep Bs Antibody, Quant Hep B Core Total Ab Hepatitis Be Antigen HIV-1 RNA PCR copies/ml HIV-1 RNA (PCR) log
--- NOTE | 2017-09-18 12:45 | XRay Report ---
AP CHEST: HISTORY: Pneumonia The lungs are hyperinflated. Small right pleural effusion is identified. No obvious infiltrate or pneumothorax. Normal heart size. Right IJ venous catheter terminates in the mid SVC. IMPRESSION: Hypoinflated lungs. Small right pleural effusion.
[2017-09-18] MEDS: PROVENTIL IH PRN (21:38)
[2017-09-19] MEDS: ATIVAN IV PRN (02:19)
[2017-09-19] MEDS: NOVOLOG SUB-Q SCH ×4 (06:49→18:31)
[2017-09-19] MEDS: BACTRIM DS PO SCH (10:19)
[2017-09-19] MEDS: LASIX IV SCH (10:19)
[2017-09-19] MEDS: LOVENOX SUB-Q SCH (10:19)
[2017-09-19] MEDS: PEPCID PO SCH ×2 (10:19→22:56)
[2017-09-19] MEDS: COREG PO SCH ×2 (10:20→23:55)
--- NOTE | 2017-09-19 11:53 | Fluoroscopy Report ---
MODIFIED BARIUM SWALLOW History: dysphagia. Findings: Video radiography was provided by the radiologist for speech therapy to assess the swallowing mechanism. Impression: Successful modified barium swallow.
--- NOTE | 2017-09-19 12:46 | Progress Note ---
Assessment and Plan 52 y/o male, vet, admitted with acute respiratory failure thought secondary to pneumonia with lactic acidosis, found to have newly diagnosed HIV being treated empirically for PJP and with systolic heart failure 1. Pulm status has improved and now stable. Will sign off. Call if questions. Subjective Date of service: 09/19/17 Principal diagnosis: Septic shock, acute hypoxemic respiratory failure, [place] Interval history: Successful transition out of the ICU. Remains on room air. Objective Vital Signs - 12hr 09/19/17 09/19/17 09/19/17 04:30 05:06 07:23 Temperature 97.7 F 97.7 F 98.1 F Pulse Rate 97 H 97 H 90 Pulse Rate [ Apical] Respiratory 22 22 18 Rate Blood Pressure 95/67 O2 Sat by Pulse 100 100 100 Oximetry 09/19/17 09/19/17 09/19/17 08:37 08:46 10:00 Temperature Pulse Rate 88 Pulse Rate [ 91 H Apical] Respiratory 18 Rate Blood Pressure O2 Sat by Pulse 97 Oximetry 09/19/17 10:20 Temperature Pulse Rate 90 Pulse Rate [ Apical] Respiratory Rate Blood Pressure 95/67 O2 Sat by Pulse Oximetry Constitutional: other (critically ill on vent, sedated) Eyes: non-icteric ENT: other (orally intubated and sedated) Neck: supple Effort: normal Ascultation: Bilateral: diminished breath sounds, rales, other (coarse BS bilaterally) Percussion: Bilateral: not dull Cardiovascular: regular rate and rhythm (sinus tach) Gastrointestinal: hypoactive bowel sounds, soft, non-tender, non-distended Extremities: no cyanosis, no edema, pink and warm Neurologic: normal mental status, non-focal exam, pupils equal and round, CN II- XII normal Psychiatric: other (unable to assess) CBC and BMP: 09/16/17 06:51 09/16/17 06:51 ABG, PT/INR, D-dimer: ABG POC ABG pH 7.415 (7.35-7.45) 09/14/17 06:14 POC ABG pCO2 52.0 (35-45) H 09/14/17 06:14 POC ABG pO2 85 (80-105) 09/14/17 06:14 POC ABG HCO3 33.3 09/14/17 06:14 POC ABG Total CO2 35 09/14/17 06:14 POC ABG O2 Sat 96 09/14/17 06:14 PT/INR, D-dimer PT 14.7 Sec. (12.2-14.9) 09/12/17 10:29 INR 1.09 (0.87-1.13) 09/12/17 10:29 D-Dimer 976.43 ng/mlDDU (0-234) H 09/01/17 23:27 Abnormal lab findings: Abnormal Labs 09/01/17 09/01/17 09/01/17 19:00 19:00 23:27 WBC RBC Hgb 10.9 L Hct 32.3 L MCV 83 L MCH RDW 15.6 H Plt Count Lymph % (Auto) Webb % (Auto) Lymph # Seg Neutrophils % Seg Neuts % (Manual) Lymphocytes % (Manual) Nucleated RBC % Seg Neutrophils # Man Lymphocytes # (Manual) PT INR Fibrinogen D-Dimer 976.43 H POC ABG pH POC ABG pCO2 POC ABG pO2 Sodium 133 L Potassium Chloride 96.4 L Carbon Dioxide BUN Creatinine Glucose 113 H POC Glucose Lactic Acid Calcium Phosphorus Magnesium AST ALT Lactate Dehydrogenase C-Reactive Protein NT-Pro-B Natriuret Pep Total Protein Albumin Lipase Vancomycin Trough Lymph Enumerat CD4/CD8 % CD4 Cells Absolute CD4 Count % CD8 Cells % CD19 Cells Absolute CD19 Count Hep Bs Antibody, Quant Hep B Core Total Ab Hepatitis Be Antigen HIV-1 RNA PCR copies/ml HIV-1 RNA (PCR) log 09/01/17 09/02/17 09/02/17 23:27 01:25 07:36 WBC 2.2 L RBC 3.41 L Hgb 9.6 L Hct 28.9 L MCV MCH RDW 16.0 H Plt Count Lymph % (Auto) Webb % (Auto) 12.6 H Lymph # Seg Neutrophils % 70.4 H Seg Neuts % (Manual) Lymphocytes % (Manual) Nucleated RBC % Seg Neutrophils # Man 1.1 L Lymphocytes # (Manual) 0.6 L PT INR Fibrinogen D-Dimer POC ABG pH POC ABG pCO2 POC ABG pO2 Sodium Potassium Chloride Carbon Dioxide BUN Creatinine Glucose POC Glucose Lactic Acid 3.30 H* 4.10 H* Calcium Phosphorus Magnesium AST ALT Lactate Dehydrogenase C-Reactive Protein NT-Pro-B Natriuret Pep Total Protein Albumin Lipase Vancomycin Trough Lymph Enumerat CD4/CD8 % CD4 Cells Absolute CD4 Count % CD8 Cells % CD19 Cells Absolute CD19 Count Hep Bs Antibody, Quant Hep B Core Total Ab Hepatitis Be Antigen HIV-1 RNA PCR copies/ml HIV-1 RNA (PCR) log 09/02/17 09/02/17 09/02/17 07:36 07:36 07:36 WBC RBC Hgb Hct MCV MCH RDW Plt Count Lymph % (Auto) Webb % (Auto) Lymph # Seg Neutrophils % Seg Neuts % (Manual) Lymphocytes % (Manual) Nucleated RBC % Seg Neutrophils # Man Lymphocytes # (Manual) PT 18.6 H INR 1.46 H Fibrinogen D-Dimer POC ABG pH POC ABG pCO2 POC ABG pO2 Sodium 136 L Potassium Chloride Carbon Dioxide BUN Creatinine Glucose POC Glucose Lactic Acid 3.80 H* Calcium Phosphorus Magnesium 1.20 L AST ALT Lactate Dehydrogenase C-Reactive Protein NT-Pro-B Natriuret Pep Total Protein 9.1 H Albumin 2.0 L Lipase Vancomycin Trough Lymph Enumerat CD4/CD8 % CD4 Cells Absolute CD4 Count % CD8 Cells % CD19 Cells Absolute CD19 Count Hep Bs Antibody, Quant Hep B Core Total Ab Hepatitis Be Antigen HIV-1 RNA PCR copies/ml HIV-1 RNA (PCR) log 09/02/17 09/02/17 09/02/17 08:49 09:40 11:33 WBC RBC Hgb Hct MCV MCH RDW Plt Count Lymph % (Auto) Webb % (Auto) Lymph # Seg Neutrophils % Seg Neuts % (Manual) Lymphocytes % (Manual) Nucleated RBC % Seg Neutrophils # Man Lymphocytes # (Manual) PT INR Fibrinogen D-Dimer POC ABG pH 7.313 L POC ABG pCO2 POC ABG pO2 116 H Sodium Potassium Chloride Carbon Dioxide BUN Creatinine Glucose POC Glucose Lactic Acid 3.60 H* 5.20 H* Calcium Phosphorus Magnesium AST ALT Lactate Dehydrogenase C-Reactive Protein NT-Pro-B Natriuret Pep Total Protein Albumin Lipase Vancomycin Trough Lymph Enumerat CD4/CD8 % CD4 Cells Absolute CD4 Count % CD8 Cells % CD19 Cells Absolute CD19 Count Hep Bs Antibody, Quant Hep B Core Total Ab Hepatitis Be Antigen HIV-1 RNA PCR copies/ml HIV-1 RNA (PCR) log 09/02/17 09/02/17 09/02/17 19:34 23:37 23:40 WBC RBC Hgb Hct MCV MCH RDW Plt Count Lymph % (Auto) Webb % (Auto) Lymph # Seg Neutrophils % Seg Neuts % (Manual) Lymphocytes % (Manual) Nucleated RBC % Seg Neutrophils # Man Lymphocytes # (Manual) PT INR Fibrinogen D-Dimer POC ABG pH POC ABG pCO2 POC ABG pO2 Sodium Potassium Chloride Carbon Dioxide BUN Creatinine Glucose 59 L POC Glucose 47 L Lactic Acid Calcium Phosphorus Magnesium AST ALT Lactate Dehydrogenase C-Reactive Protein 22.30 H NT-Pro-B Natriuret Pep Total Protein Albumin Lipase Vancomycin Trough Lymph Enumerat CD4/CD8 % CD4 Cells Absolute CD4 Count % CD8 Cells % CD19 Cells Absolute CD19 Count Hep Bs Antibody, Quant Hep B Core Total Ab Hepatitis Be Antigen HIV-1 RNA PCR copies/ml HIV-1 RNA (PCR) log 09/03/17 09/03/17 09/03/17 00:06 05:15 05:15 WBC RBC 3.59 L Hgb 10.1 L Hct 31.5 L MCV MCH RDW 18.0 H Plt Count Lymph % (Auto) Webb % (Auto) Lymph # Seg Neutrophils % Seg Neuts % (Manual) Lymphocytes % (Manual) 1.0 L Nucleated RBC % 1.0 H Seg Neutrophils # Man Lymphocytes # (Manual) 0.1 L PT INR Fibrinogen D-Dimer POC ABG pH POC ABG pCO2 POC ABG pO2 Sodium Potassium Chloride Carbon Dioxide BUN Creatinine Glucose POC Glucose 144 H Lactic Acid 9.10 H* Calcium Phosphorus Magnesium AST ALT Lactate Dehydrogenase C-Reactive Protein NT-Pro-B Natriuret Pep Total Protein Albumin Lipase Vancomycin Trough Lymph Enumerat CD4/CD8 % CD4 Cells Absolute CD4 Count % CD8 Cells % CD19 Cells Absolute CD19 Count Hep Bs Antibody, Quant Hep B Core Total Ab Hepatitis Be Antigen HIV-1 RNA PCR copies/ml HIV-1 RNA (PCR) log 09/03/17 09/03/17 09/03/17 05:15 05:55 07:40 WBC RBC Hgb Hct MCV MCH RDW Plt Count Lymph % (Auto) Webb % (Auto) Lymph # Seg Neutrophils % Seg Neuts % (Manual) Lymphocytes % (Manual) Nucleated RBC % Seg Neutrophils # Man Lymphocytes # (Manual) PT INR Fibrinogen D-Dimer POC ABG pH 6.999 L POC ABG pCO2 POC ABG pO2 64 L Sodium Potassium 5.6 H D Chloride 108.4 H Carbon Dioxide 11 L D BUN 30 H Creatinine Glucose 115 H POC Glucose Lactic Acid 9.20 H* Calcium 7.3 L D Phosphorus 6.40 H Magnesium AST 88 H ALT Lactate Dehydrogenase C-Reactive Protein NT-Pro-B Natriuret Pep Total Protein Albumin 1.7 L Lipase Vancomycin Trough Lymph Enumerat CD4/CD8 % CD4 Cells Absolute CD4 Count % CD8 Cells % CD19 Cells Absolute CD19 Count Hep Bs Antibody, Quant Hep B Core Total Ab Hepatitis Be Antigen HIV-1 RNA PCR copies/ml HIV-1 RNA (PCR) log 09/03/17 09/03/17 09/03/17 09:55 12:03 13:17 WBC RBC Hgb Hct MCV MCH RDW Plt Count Lymph % (Auto) Webb % (Auto) Lymph # Seg Neutrophils % Seg Neuts % (Manual) Lymphocytes % (Manual) Nucleated RBC % Seg Neutrophils # Man Lymphocytes # (Manual) PT INR Fibrinogen D-Dimer POC ABG pH POC ABG pCO2 POC ABG pO2 Sodium Potassium Chloride Carbon Dioxide BUN Creatinine Glucose POC Glucose 155 H Lactic Acid 9.50 H* 9.90 H* Calcium Phosphorus Magnesium AST ALT Lactate Dehydrogenase C-Reactive Protein NT-Pro-B Natriuret Pep Total Protein Albumin Lipase Vancomycin Trough Lymph Enumerat CD4/CD8 % CD4 Cells Absolute CD4 Count % CD8 Cells % CD19 Cells Absolute CD19 Count Hep Bs Antibody, Quant Hep B Core Total Ab Hepatitis Be Antigen HIV-1 RNA PCR copies/ml HIV-1 RNA (PCR) log 09/03/17 09/03/17 09/03/17 15:55 17:13 18:02 WBC RBC Hgb Hct MCV MCH RDW Plt Count Lymph % (Auto) Webb % (Auto) Lymph # Seg Neutrophils % Seg Neuts % (Manual) Lymphocytes % (Manual) Nucleated RBC % Seg Neutrophils # Man Lymphocytes # (Manual) PT INR Fibrinogen D-Dimer POC ABG pH POC ABG pCO2 POC ABG pO2 Sodium Potassium Chloride Carbon Dioxide BUN Creatinine Glucose POC Glucose 171 H Lactic Acid 9.60 H* 9.00 H* Calcium Phosphorus Magnesium AST ALT Lactate Dehydrogenase C-Reactive Protein NT-Pro-B Natriuret Pep Total Protein Albumin Lipase Vancomycin Trough Lymph Enumerat CD4/CD8 % CD4 Cells Absolute CD4 Count % CD8 Cells % CD19 Cells Absolute CD19 Count Hep Bs Antibody, Quant Hep B Core Total Ab Hepatitis Be Antigen HIV-1 RNA PCR copies/ml HIV-1 RNA (PCR) log 09/03/17 09/03/17 09/04/17 20:29 23:02 04:00 WBC RBC Hgb Hct MCV MCH RDW Plt Count Lymph % (Auto) Webb % (Auto) Lymph # Seg Neutrophils % Seg Neuts % (Manual) Lymphocytes % (Manual) Nucleated RBC % Seg Neutrophils # Man Lymphocytes # (Manual) PT INR Fibrinogen D-Dimer POC ABG pH POC ABG pCO2 POC ABG pO2 Sodium Potassium Chloride Carbon Dioxide BUN Creatinine Glucose POC Glucose 156 H Lactic Acid 9.00 H* 3.00 H* Calcium Phosphorus Magnesium AST ALT Lactate Dehydrogenase C-Reactive Protein NT-Pro-B Natriuret Pep Total Protein Albumin Lipase Vancomycin Trough Lymph Enumerat CD4/CD8 % CD4 Cells Absolute CD4 Count % CD8 Cells % CD19 Cells Absolute CD19 Count Hep Bs Antibody, Quant Hep B Core Total Ab Hepatitis Be Antigen HIV-1 RNA PCR copies/ml HIV-1 RNA (PCR) log 09/04/17 09/04/17 09/04/17 04:00 04:00 09:00 WBC RBC 3.44 L Hgb 9.6 L Hct 29.0 L MCV MCH RDW 17.4 H Plt Count 124 L Lymph % (Auto) Webb % (Auto) Lymph # Seg Neutrophils % Seg Neuts % (Manual) 91.0 H Lymphocytes % (Manual) 3.0 L Nucleated RBC % 2.0 H Seg Neutrophils # Man 9.9 H Lymphocytes # (Manual) 0.3 L PT 28.4 H INR 2.47 H Fibrinogen D-Dimer POC ABG pH POC ABG pCO2 POC ABG pO2 Sodium Potassium Chloride 110.1 H Carbon Dioxide BUN 29 H Creatinine Glucose 192 H POC Glucose Lactic Acid Calcium 6.8 L Phosphorus Magnesium AST 361 H ALT 315 H Lactate Dehydrogenase C-Reactive Protein NT-Pro-B Natriuret Pep Total Protein Albumin 1.6 L Lipase Vancomycin Trough Lymph Enumerat CD4/CD8 % CD4 Cells Absolute CD4 Count % CD8 Cells % CD19 Cells Absolute CD19 Count Hep Bs Antibody, Quant Hep B Core Total Ab Hepatitis Be Antigen HIV-1 RNA PCR copies/ml HIV-1 RNA (PCR) log 09/04/17 09/04/17 09/04/17 09:00 12:00 17:23 WBC RBC Hgb Hct MCV MCH RDW Plt Count Lymph % (Auto) Webb % (Auto) Lymph # Seg Neutrophils % Seg Neuts % (Manual) Lymphocytes % (Manual) Nucleated RBC % Seg Neutrophils # Man Lymphocytes # (Manual) PT INR Fibrinogen 611 H D-Dimer POC ABG pH POC ABG pCO2 POC ABG pO2 Sodium Potassium Chloride Carbon Dioxide BUN Creatinine Glucose POC Glucose Lactic Acid 2.10 H* 3.40 H* Calcium Phosphorus Magnesium AST ALT Lactate Dehydrogenase C-Reactive Protein NT-Pro-B Natriuret Pep Total Protein Albumin Lipase Vancomycin Trough Lymph Enumerat CD4/CD8 % CD4 Cells Absolute CD4 Count % CD8 Cells % CD19 Cells Absolute CD19 Count Hep Bs Antibody, Quant Hep B Core Total Ab Hepatitis Be Antigen HIV-1 RNA PCR copies/ml HIV-1 RNA (PCR) log 09/04/17 09/04/17 09/04/17 17:23 17:47 22:30 WBC RBC Hgb Hct MCV MCH RDW Plt Count Lymph % (Auto) Webb % (Auto) Lymph # Seg Neutrophils % Seg Neuts % (Manual) Lymphocytes % (Manual) Nucleated RBC % Seg Neutrophils # Man Lymphocytes # (Manual) PT INR Fibrinogen D-Dimer POC ABG pH POC ABG pCO2 POC ABG pO2 Sodium Potassium Chloride Carbon Dioxide BUN Creatinine Glucose POC Glucose 107 H Lactic Acid 4.70 H* Calcium Phosphorus Magnesium AST ALT Lactate Dehydrogenase C-Reactive Protein NT-Pro-B Natriuret Pep Total Protein Albumin Lipase 12 L Vancomycin Trough Lymph Enumerat CD4/CD8 % CD4 Cells Absolute CD4 Count % CD8 Cells % CD19 Cells Absolute CD19 Count Hep Bs Antibody, Quant Hep B Core Total Ab Hepatitis Be Antigen HIV-1 RNA PCR copies/ml HIV-1 RNA (PCR) log 09/04/17 09/05/17 09/05/17 23:08 05:31 06:00 WBC RBC Hgb Hct MCV MCH RDW Plt Count Lymph % (Auto) Webb % (Auto) Lymph # Seg Neutrophils % Seg Neuts % (Manual) Lymphocytes % (Manual) Nucleated RBC % Seg Neutrophils # Man Lymphocytes # (Manual) PT INR Fibrinogen D-Dimer POC ABG pH 7.226 L POC ABG pCO2 65.4 H POC ABG pO2 61 L Sodium Potassium Chloride 112.7 H Carbon Dioxide BUN 31 H Creatinine Glucose 132 H POC Glucose 109 H Lactic Acid Calcium 7.7 L Phosphorus Magnesium AST 834 H ALT 898 H Lactate Dehydrogenase C-Reactive Protein NT-Pro-B Natriuret Pep Total Protein Albumin 1.4 L Lipase Vancomycin Trough Lymph Enumerat CD4/CD8 % CD4 Cells Absolute CD4 Count % CD8 Cells % CD19 Cells Absolute CD19 Count Hep Bs Antibody, Quant Hep B Core Total Ab Hepatitis Be Antigen HIV-1 RNA PCR copies/ml HIV-1 RNA (PCR) log 09/05/17 09/05/17 09/05/17 06:00 06:35 10:26 WBC RBC Hgb Hct MCV MCH RDW Plt Count Lymph % (Auto) Webb % (Auto) Lymph # Seg Neutrophils % Seg Neuts % (Manual) Lymphocytes % (Manual) Nucleated RBC % Seg Neutrophils # Man Lymphocytes # (Manual) PT INR Fibrinogen D-Dimer POC ABG pH 7.311 L POC ABG pCO2 58.5 H POC ABG pO2 213 H Sodium Potassium Chloride Carbon Dioxide BUN Creatinine Glucose POC Glucose 110 H Lactic Acid 4.50 H* Calcium Phosphorus Magnesium AST ALT Lactate Dehydrogenase C-Reactive Protein NT-Pro-B Natriuret Pep Total Protein Albumin Lipase Vancomycin Trough Lymph Enumerat CD4/CD8 % CD4 Cells Absolute CD4 Count % CD8 Cells % CD19 Cells Absolute CD19 Count Hep Bs Antibody, Quant Hep B Core Total Ab Hepatitis Be Antigen HIV-1 RNA PCR copies/ml HIV-1 RNA (PCR) log 09/05/17 09/05/17 09/05/17 10:55 10:55 10:55 WBC 11.1 H RBC 3.38 L Hgb 9.3 L Hct 28.7 L MCV MCH RDW 16.7 H Plt Count 118 L Lymph % (Auto) Webb % (Auto) Lymph # Seg Neutrophils % Seg Neuts % (Manual) 92.0 H Lymphocytes % (Manual) 4.0 L Nucleated RBC % 2.0 H Seg Neutrophils # Man 10.2 H Lymphocytes # (Manual) 0.4 L PT INR Fibrinogen D-Dimer POC ABG pH POC ABG pCO2 POC ABG pO2 Sodium Potassium Chloride Carbon Dioxide BUN Creatinine Glucose POC Glucose Lactic Acid 3.60 H* Calcium Phosphorus Magnesium AST ALT Lactate Dehydrogenase 571 H C-Reactive Protein NT-Pro-B Natriuret Pep Total Protein Albumin Lipase Vancomycin Trough Lymph Enumerat CD4/CD8 % CD4 Cells Absolute CD4 Count % CD8 Cells % CD19 Cells Absolute CD19 Count Hep Bs Antibody, Quant Hep B Core Total Ab Hepatitis Be Antigen HIV-1 RNA PCR copies/ml HIV-1 RNA (PCR) log 09/05/17 09/05/17 09/05/17 12:05 14:30 14:30 WBC RBC Hgb Hct MCV MCH RDW Plt Count Lymph % (Auto) Webb % (Auto) Lymph # Seg Neutrophils % Seg Neuts % (Manual) Lymphocytes % (Manual) Nucleated RBC % Seg Neutrophils # Man Lymphocytes # (Manual) PT INR Fibrinogen D-Dimer POC ABG pH POC ABG pCO2 POC ABG pO2 Sodium Potassium Chloride Carbon Dioxide BUN Creatinine Glucose POC Glucose 148 H Lactic Acid Calcium Phosphorus Magnesium AST ALT Lactate Dehydrogenase C-Reactive Protein NT-Pro-B Natriuret Pep Total Protein Albumin Lipase Vancomycin Trough Lymph Enumerat CD4/CD8 0.10 L % CD4 Cells 7 L Absolute CD4 Count 101 L % CD8 Cells 66 H % CD19 Cells 4 L Absolute CD19 Count 60 L Hep Bs Antibody, Quant Hep B Core Total Ab Hepatitis Be Antigen HIV-1 RNA PCR copies/ml 1750 H HIV-1 RNA (PCR) log 3.24 H 09/05/17 09/05/17 09/05/17 16:30 17:42 19:55 WBC RBC Hgb Hct MCV MCH RDW Plt Count Lymph % (Auto) Webb % (Auto) Lymph # Seg Neutrophils % Seg Neuts % (Manual) Lymphocytes % (Manual) Nucleated RBC % Seg Neutrophils # Man Lymphocytes # (Manual) PT INR Fibrinogen D-Dimer POC ABG pH POC ABG pCO2 POC ABG pO2 Sodium Potassium Chloride Carbon Dioxide BUN Creatinine Glucose POC Glucose 183 H Lactic Acid 3.50 H* 3.60 H* Calcium Phosphorus Magnesium AST ALT Lactate Dehydrogenase C-Reactive Protein NT-Pro-B Natriuret Pep Total Protein Albumin Lipase Vancomycin Trough Lymph Enumerat CD4/CD8 % CD4 Cells Absolute CD4 Count % CD8 Cells % CD19 Cells Absolute CD19 Count Hep Bs Antibody, Quant Hep B Core Total Ab Hepatitis Be Antigen HIV-1 RNA PCR copies/ml HIV-1 RNA (PCR) log 09/05/17 09/06/17 09/06/17 23:29 03:58 05:33 WBC RBC Hgb Hct MCV MCH RDW Plt Count Lymph % (Auto) Webb % (Auto) Lymph # Seg Neutrophils % Seg Neuts % (Manual) Lymphocytes % (Manual) Nucleated RBC % Seg Neutrophils # Man Lymphocytes # (Manual) PT INR Fibrinogen D-Dimer POC ABG pH POC ABG pCO2 62.5 H POC ABG pO2 141 H Sodium Potassium Chloride Carbon Dioxide BUN Creatinine Glucose POC Glucose 203 H 207 H Lactic Acid Calcium Phosphorus Magnesium AST ALT Lactate Dehydrogenase C-Reactive Protein NT-Pro-B Natriuret Pep Total Protein Albumin Lipase Vancomycin Trough Lymph Enumerat CD4/CD8 % CD4 Cells Absolute CD4 Count % CD8 Cells % CD19 Cells Absolute CD19 Count Hep Bs Antibody, Quant Hep B Core Total Ab Hepatitis Be Antigen HIV-1 RNA PCR copies/ml HIV-1 RNA (PCR) log 09/06/17 09/06/17 09/06/17 06:15 06:15 06:15 WBC RBC 3.26 L Hgb 9.0 L Hct 27.5 L MCV MCH RDW 16.7 H Plt Count 104 L Lymph % (Auto) Webb % (Auto) Lymph # Seg Neutrophils % Seg Neuts % (Manual) 97.0 H Lymphocytes % (Manual) 2.0 L Nucleated RBC % Seg Neutrophils # Man 8.1 H Lymphocytes # (Manual) 0.2 L PT INR Fibrinogen D-Dimer POC ABG pH POC ABG pCO2 POC ABG pO2 Sodium 150 H Potassium Chloride 110.9 H Carbon Dioxide 31 H BUN 34 H Creatinine Glucose 207 H POC Glucose Lactic Acid 2.90 H* Calcium 8.2 L Phosphorus Magnesium AST 346 H ALT 634 H Lactate Dehydrogenase C-Reactive Protein NT-Pro-B Natriuret Pep Total Protein Albumin 1.5 L Lipase Vancomycin Trough Lymph Enumerat CD4/CD8 % CD4 Cells Absolute CD4 Count % CD8 Cells % CD19 Cells Absolute CD19 Count Hep Bs Antibody, Quant Hep B Core Total Ab Hepatitis Be Antigen HIV-1 RNA PCR copies/ml HIV-1 RNA (PCR) log 09/06/17 09/06/17 09/06/17 08:03 11:32 18:04 WBC RBC Hgb Hct MCV MCH RDW Plt Count Lymph % (Auto) Webb % (Auto) Lymph # Seg Neutrophils % Seg Neuts % (Manual) Lymphocytes % (Manual) Nucleated RBC % Seg Neutrophils # Man Lymphocytes # (Manual) PT INR Fibrinogen D-Dimer POC ABG pH POC ABG pCO2 POC ABG pO2 Sodium Potassium Chloride Carbon Dioxide BUN Creatinine Glucose POC Glucose 169 H 130 H Lactic Acid 2.90 H* Calcium Phosphorus Magnesium AST ALT Lactate Dehydrogenase C-Reactive Protein NT-Pro-B Natriuret Pep Total Protein Albumin Lipase Vancomycin Trough Lymph Enumerat CD4/CD8 % CD4 Cells Absolute CD4 Count % CD8 Cells % CD19 Cells Absolute CD19 Count Hep Bs Antibody, Quant Hep B Core Total Ab Hepatitis Be Antigen HIV-1 RNA PCR copies/ml HIV-1 RNA (PCR) log 09/07/17 09/07/17 09/07/17 00:03 04:13 04:13 WBC RBC Hgb Hct MCV MCH RDW Plt Count Lymph % (Auto) Webb % (Auto) Lymph # Seg Neutrophils % Seg Neuts % (Manual) Lymphocytes % (Manual) Nucleated RBC % Seg Neutrophils # Man Lymphocytes # (Manual) PT INR Fibrinogen D-Dimer POC ABG pH POC ABG pCO2 POC ABG pO2 Sodium 152 H Potassium 3.5 L Chloride 114.9 H Carbon Dioxide 34 H BUN 35 H Creatinine Glucose 149 H POC Glucose 123 H Lactic Acid Calcium Phosphorus Magnesium AST 150 H ALT 381 H Lactate Dehydrogenase C-Reactive Protein NT-Pro-B Natriuret Pep Total Protein Albumin 1.3 L Lipase Vancomycin Trough Lymph Enumerat CD4/CD8 % CD4 Cells Absolute CD4 Count % CD8 Cells % CD19 Cells Absolute CD19 Count Hep Bs Antibody, Quant Hep B Core Total Ab Reactive H Hepatitis Be Antigen HIV-1 RNA PCR copies/ml HIV-1 RNA (PCR) log 09/07/17 09/07/17 09/07/17 04:13 04:13 04:33 WBC RBC Hgb Hct MCV MCH RDW Plt Count Lymph % (Auto) Webb % (Auto) Lymph # Seg Neutrophils % Seg Neuts % (Manual) Lymphocytes % (Manual) Nucleated RBC % Seg Neutrophils # Man Lymphocytes # (Manual) PT INR Fibrinogen D-Dimer POC ABG pH 7.590 H POC ABG pCO2 POC ABG pO2 179 H Sodium Potassium Chloride Carbon Dioxide BUN Creatinine Glucose POC Glucose Lactic Acid Calcium Phosphorus Magnesium AST ALT Lactate Dehydrogenase C-Reactive Protein NT-Pro-B Natriuret Pep Total Protein Albumin Lipase Vancomycin Trough Lymph Enumerat CD4/CD8 % CD4 Cells Absolute CD4 Count % CD8 Cells % CD19 Cells Absolute CD19 Count Hep Bs Antibody, Quant <5 L Hep B Core Total Ab Hepatitis Be Antigen Reactive H HIV-1 RNA PCR copies/ml HIV-1 RNA (PCR) log 09/07/17 09/07/17 09/07/17 05:05 08:20 11:34 WBC 11.9 H RBC 3.11 L Hgb 8.4 L Hct 26.0 L MCV MCH 27 L RDW 16.2 H Plt Count 109 L Lymph % (Auto) Webb % (Auto) Lymph # Seg Neutrophils % Seg Neuts % (Manual) 93.0 H Lymphocytes % (Manual) 1.0 L Nucleated RBC % Seg Neutrophils # Man 11.1 H Lymphocytes # (Manual) 0.1 L PT INR Fibrinogen D-Dimer POC ABG pH POC ABG pCO2 POC ABG pO2 Sodium Potassium Chloride Carbon Dioxide BUN Creatinine Glucose POC Glucose 168 H 156 H Lactic Acid Calcium Phosphorus Magnesium AST ALT Lactate Dehydrogenase C-Reactive Protein NT-Pro-B Natriuret Pep Total Protein Albumin Lipase Vancomycin Trough Lymph Enumerat CD4/CD8 % CD4 Cells Absolute CD4 Count % CD8 Cells % CD19 Cells Absolute CD19 Count Hep Bs Antibody, Quant Hep B Core Total Ab Hepatitis Be Antigen HIV-1 RNA PCR copies/ml HIV-1 RNA (PCR) log 09/07/17 09/07/17 09/07/17 18:13 20:14 20:14 WBC 14.6 H RBC 3.36 L Hgb 9.2 L Hct 28.3 L MCV MCH 27 L RDW 16.1 H Plt Count 120 L Lymph % (Auto) Webb % (Auto) Lymph # Seg Neutrophils % Seg Neuts % (Manual) 93.0 H Lymphocytes % (Manual) 2.0 L Nucleated RBC % Seg Neutrophils # Man 13.6 H Lymphocytes # (Manual) 0.3 L PT INR Fibrinogen D-Dimer POC ABG pH POC ABG pCO2 POC ABG pO2 Sodium 154 H Potassium 3.4 L Chloride 114.7 H Carbon Dioxide 34 H BUN 37 H Creatinine Glucose 131 H POC Glucose 136 H Lactic Acid Calcium Phosphorus Magnesium AST ALT Lactate Dehydrogenase C-Reactive Protein NT-Pro-B Natriuret Pep Total Protein Albumin Lipase Vancomycin Trough Lymph Enumerat CD4/CD8 % CD4 Cells Absolute CD4 Count % CD8 Cells % CD19 Cells Absolute CD19 Count Hep Bs Antibody, Quant Hep B Core Total Ab Hepatitis Be Antigen HIV-1 RNA PCR copies/ml HIV-1 RNA (PCR) log 09/08/17 09/08/17 09/08/17 05:15 05:30 05:30 WBC 13.6 H RBC 3.29 L Hgb 9.1 L Hct 27.4 L MCV 83 L MCH RDW 15.8 H Plt Count 111 L Lymph % (Auto) Webb % (Auto) Lymph # Seg Neutrophils % Seg Neuts % (Manual) 94.0 H Lymphocytes % (Manual) 4.0 L Nucleated RBC % 1.0 H Seg Neutrophils # Man 12.8 H Lymphocytes # (Manual) 0.5 L PT INR Fibrinogen D-Dimer POC ABG pH 7.460 H POC ABG pCO2 54.7 H POC ABG pO2 209 H Sodium Potassium Chloride Carbon Dioxide BUN Creatinine Glucose POC Glucose Lactic Acid Calcium Phosphorus Magnesium AST ALT Lactate Dehydrogenase C-Reactive Protein 8.70 H NT-Pro-B Natriuret Pep Total Protein Albumin Lipase Vancomycin Trough Lymph Enumerat CD4/CD8 % CD4 Cells Absolute CD4 Count % CD8 Cells % CD19 Cells Absolute CD19 Count Hep Bs Antibody, Quant Hep B Core Total Ab Hepatitis Be Antigen HIV-1 RNA PCR copies/ml HIV-1 RNA (PCR) log 09/08/17 09/08/17 09/08/17 05:30 12:24 17:19 WBC RBC Hgb Hct MCV MCH RDW Plt Count Lymph % (Auto) Webb % (Auto) Lymph # Seg Neutrophils % Seg Neuts % (Manual) Lymphocytes % (Manual) Nucleated RBC % Seg Neutrophils # Man Lymphocytes # (Manual) PT INR Fibrinogen D-Dimer POC ABG pH POC ABG pCO2 POC ABG pO2 Sodium 154 H Potassium Chloride 114.3 H Carbon Dioxide 36 H BUN 39 H Creatinine Glucose 163 H POC Glucose 181 H 170 H Lactic Acid Calcium Phosphorus Magnesium AST ALT Lactate Dehydrogenase C-Reactive Protein NT-Pro-B Natriuret Pep Total Protein Albumin Lipase Vancomycin Trough Lymph Enumerat CD4/CD8 % CD4 Cells Absolute CD4 Count % CD8 Cells % CD19 Cells Absolute CD19 Count Hep Bs Antibody, Quant Hep B Core Total Ab Hepatitis Be Antigen HIV-1 RNA PCR copies/ml HIV-1 RNA (PCR) log 09/08/17 09/09/17 09/09/17 23:51 04:00 04:00 WBC 20.1 H RBC 3.37 L Hgb 9.2 L Hct 28.0 L MCV 83 L MCH 27 L RDW 15.7 H Plt Count 123 L Lymph % (Auto) Webb % (Auto) Lymph # Seg Neutrophils % Seg Neuts % (Manual) 86.0 H Lymphocytes % (Manual) 9.0 L Nucleated RBC % Seg Neutrophils # Man 17.3 H Lymphocytes # (Manual) PT INR Fibrinogen D-Dimer POC ABG pH POC ABG pCO2 POC ABG pO2 Sodium 150 H Potassium 3.0 L Chloride 107.7 H Carbon Dioxide 35 H BUN 39 H Creatinine Glucose 174 H POC Glucose 185 H Lactic Acid Calcium Phosphorus Magnesium AST ALT Lactate Dehydrogenase C-Reactive Protein NT-Pro-B Natriuret Pep Total Protein Albumin Lipase Vancomycin Trough Lymph Enumerat CD4/CD8 % CD4 Cells Absolute CD4 Count % CD8 Cells % CD19 Cells Absolute CD19 Count Hep Bs Antibody, Quant Hep B Core Total Ab Hepatitis Be Antigen HIV-1 RNA PCR copies/ml HIV-1 RNA (PCR) log 09/09/17 09/09/17 09/09/17 04:34 05:57 12:04 WBC RBC Hgb Hct MCV MCH RDW Plt Count Lymph % (Auto) Webb % (Auto) Lymph # Seg Neutrophils % Seg Neuts % (Manual) Lymphocytes % (Manual) Nucleated RBC % Seg Neutrophils # Man Lymphocytes # (Manual) PT INR Fibrinogen D-Dimer POC ABG pH 7.575 H POC ABG pCO2 POC ABG pO2 63 L Sodium Potassium Chloride Carbon Dioxide BUN Creatinine Glucose POC Glucose 170 H 126 H Lactic Acid Calcium Phosphorus Magnesium AST ALT Lactate Dehydrogenase C-Reactive Protein NT-Pro-B Natriuret Pep Total Protein Albumin Lipase Vancomycin Trough Lymph Enumerat CD4/CD8 % CD4 Cells Absolute CD4 Count % CD8 Cells % CD19 Cells Absolute CD19 Count Hep Bs Antibody, Quant Hep B Core Total Ab Hepatitis Be Antigen HIV-1 RNA PCR copies/ml HIV-1 RNA (PCR) log 09/09/17 09/10/17 09/10/17 17:31 00:02 03:46 WBC RBC Hgb Hct MCV MCH RDW Plt Count Lymph % (Auto) Webb % (Auto) Lymph # Seg Neutrophils % Seg Neuts % (Manual) Lymphocytes % (Manual) Nucleated RBC % Seg Neutrophils # Man Lymphocytes # (Manual) PT INR Fibrinogen D-Dimer POC ABG pH 7.529 H POC ABG pCO2 45.6 H POC ABG pO2 69 L Sodium Potassium Chloride Carbon Dioxide BUN Creatinine Glucose POC Glucose 180 H 190 H Lactic Acid Calcium Phosphorus Magnesium AST ALT Lactate Dehydrogenase C-Reactive Protein NT-Pro-B Natriuret Pep Total Protein Albumin Lipase Vancomycin Trough Lymph Enumerat CD4/CD8 % CD4 Cells Absolute CD4 Count % CD8 Cells % CD19 Cells Absolute CD19 Count Hep Bs Antibody, Quant Hep B Core Total Ab Hepatitis Be Antigen HIV-1 RNA PCR copies/ml HIV-1 RNA (PCR) log 09/10/17 09/10/17 09/10/17 04:44 04:50 06:19 WBC 21.7 H RBC 3.32 L Hgb 9.2 L Hct 28.0 L MCV MCH RDW 15.3 H Plt Count Lymph % (Auto) Webb % (Auto) Lymph # Seg Neutrophils % Seg Neuts % (Manual) 96.0 H Lymphocytes % (Manual) 4.0 L Nucleated RBC % Seg Neutrophils # Man 20.8 H Lymphocytes # (Manual) 0.9 L PT INR Fibrinogen D-Dimer POC ABG pH POC ABG pCO2 POC ABG pO2 Sodium 149 H Potassium Chloride 109.8 H Carbon Dioxide 36 H BUN 34 H Creatinine 0.7 L Glucose 139 H POC Glucose 154 H Lactic Acid Calcium Phosphorus Magnesium AST ALT Lactate Dehydrogenase C-Reactive Protein NT-Pro-B Natriuret Pep Total Protein Albumin Lipase Vancomycin Trough Lymph Enumerat CD4/CD8 % CD4 Cells Absolute CD4 Count % CD8 Cells % CD19 Cells Absolute CD19 Count Hep Bs Antibody, Quant Hep B Core Total Ab Hepatitis Be Antigen HIV-1 RNA PCR copies/ml HIV-1 RNA (PCR) log 09/10/17 09/10/17 09/10/17 11:58 17:15 23:24 WBC RBC Hgb Hct MCV MCH RDW Plt Count Lymph % (Auto) Webb % (Auto) Lymph # Seg Neutrophils % Seg Neuts % (Manual) Lymphocytes % (Manual) Nucleated RBC % Seg Neutrophils # Man Lymphocytes # (Manual) PT INR Fibrinogen D-Dimer POC ABG pH POC ABG pCO2 POC ABG pO2 Sodium Potassium Chloride Carbon Dioxide BUN Creatinine Glucose POC Glucose 204 H 193 H 177 H Lactic Acid Calcium Phosphorus Magnesium AST ALT Lactate Dehydrogenase C-Reactive Protein NT-Pro-B Natriuret Pep Total Protein Albumin Lipase Vancomycin Trough Lymph Enumerat CD4/CD8 % CD4 Cells Absolute CD4 Count % CD8 Cells % CD19 Cells Absolute CD19 Count Hep Bs Antibody, Quant Hep B Core Total Ab Hepatitis Be Antigen HIV-1 RNA PCR copies/ml HIV-1 RNA (PCR) log 09/11/17 09/11/17 09/11/17 04:03 05:39 06:00 WBC 15.9 H RBC 2.93 L Hgb 7.9 L Hct 24.9 L MCV MCH 27 L RDW 15.6 H Plt Count Lymph % (Auto) Webb % (Auto) Lymph # Seg Neutrophils % Seg Neuts % (Manual) 99.0 H Lymphocytes % (Manual) 0 L Nucleated RBC % Seg Neutrophils # Man 15.7 H Lymphocytes # (Manual) 0.0 L PT INR Fibrinogen D-Dimer POC ABG pH 7.572 H POC ABG pCO2 POC ABG pO2 113 H Sodium Potassium Chloride Carbon Dioxide BUN Creatinine Glucose POC Glucose 144 H Lactic Acid Calcium Phosphorus Magnesium AST ALT Lactate Dehydrogenase C-Reactive Protein NT-Pro-B Natriuret Pep Total Protein Albumin Lipase Vancomycin Trough Lymph Enumerat CD4/CD8 % CD4 Cells Absolute CD4 Count % CD8 Cells % CD19 Cells Absolute CD19 Count Hep Bs Antibody, Quant Hep B Core Total Ab Hepatitis Be Antigen HIV-1 RNA PCR copies/ml HIV-1 RNA (PCR) log 09/11/17 09/11/17 09/11/17 06:00 11:48 18:01 WBC RBC Hgb Hct MCV MCH RDW Plt Count Lymph % (Auto) Webb % (Auto) Lymph # Seg Neutrophils % Seg Neuts % (Manual) Lymphocytes % (Manual) Nucleated RBC % Seg Neutrophils # Man Lymphocytes # (Manual) PT INR Fibrinogen D-Dimer POC ABG pH POC ABG pCO2 POC ABG pO2 Sodium Potassium Chloride 108.1 H Carbon Dioxide BUN 30 H Creatinine 0.6 L Glucose 132 H POC Glucose 179 H 135 H Lactic Acid Calcium 7.4 L D Phosphorus Magnesium AST ALT Lactate Dehydrogenase C-Reactive Protein NT-Pro-B Natriuret Pep Total Protein Albumin Lipase Vancomycin Trough Lymph Enumerat CD4/CD8 % CD4 Cells Absolute CD4 Count % CD8 Cells % CD19 Cells Absolute CD19 Count Hep Bs Antibody, Quant Hep B Core Total Ab Hepatitis Be Antigen HIV-1 RNA PCR copies/ml HIV-1 RNA (PCR) log 09/12/17 09/12/17 09/12/17 00:22 04:24 06:41 WBC RBC Hgb Hct MCV MCH RDW Plt Count Lymph % (Auto) Webb % (Auto) Lymph # Seg Neutrophils % Seg Neuts % (Manual) Lymphocytes % (Manual) Nucleated RBC % Seg Neutrophils # Man Lymphocytes # (Manual) PT INR Fibrinogen D-Dimer POC ABG pH POC ABG pCO2 53.5 H POC ABG pO2 79 L Sodium Potassium Chloride Carbon Dioxide BUN Creatinine Glucose POC Glucose 164 H 202 H Lactic Acid Calcium Phosphorus Magnesium AST ALT Lactate Dehydrogenase C-Reactive Protein NT-Pro-B Natriuret Pep Total Protein Albumin Lipase Vancomycin Trough Lymph Enumerat CD4/CD8 % CD4 Cells Absolute CD4 Count % CD8 Cells % CD19 Cells Absolute CD19 Count Hep Bs Antibody, Quant Hep B Core Total Ab Hepatitis Be Antigen HIV-1 RNA PCR copies/ml HIV-1 RNA (PCR) log 09/12/17 09/12/17 09/12/17 12:17 17:28 21:44 WBC RBC Hgb Hct MCV MCH RDW Plt Count Lymph % (Auto) Webb % (Auto) Lymph # Seg Neutrophils % Seg Neuts % (Manual) Lymphocytes % (Manual) Nucleated RBC % Seg Neutrophils # Man Lymphocytes # (Manual) PT INR Fibrinogen D-Dimer POC ABG pH POC ABG pCO2 POC ABG pO2 Sodium Potassium Chloride Carbon Dioxide BUN Creatinine Glucose POC Glucose 157 H 189 H Lactic Acid Calcium Phosphorus Magnesium AST ALT Lactate Dehydrogenase C-Reactive Protein 1.60 H NT-Pro-B Natriuret Pep Total Protein Albumin Lipase Vancomycin Trough Lymph Enumerat CD4/CD8 % CD4 Cells Absolute CD4 Count % CD8 Cells % CD19 Cells Absolute CD19 Count Hep Bs Antibody, Quant Hep B Core Total Ab Hepatitis Be Antigen HIV-1 RNA PCR copies/ml HIV-1 RNA (PCR) log 09/13/17 09/13/17 09/13/17 00:16 03:56 05:47 WBC RBC Hgb Hct MCV MCH RDW Plt Count Lymph % (Auto) Webb % (Auto) Lymph # Seg Neutrophils % Seg Neuts % (Manual) Lymphocytes % (Manual) Nucleated RBC % Seg Neutrophils # Man Lymphocytes # (Manual) PT INR Fibrinogen D-Dimer POC ABG pH 7.457 H POC ABG pCO2 49.9 H POC ABG pO2 Sodium Potassium Chloride Carbon Dioxide BUN Creatinine Glucose POC Glucose 164 H 190 H Lactic Acid Calcium Phosphorus Magnesium AST ALT Lactate Dehydrogenase C-Reactive Protein NT-Pro-B Natriuret Pep Total Protein Albumin Lipase Vancomycin Trough Lymph Enumerat CD4/CD8 % CD4 Cells Absolute CD4 Count % CD8 Cells % CD19 Cells Absolute CD19 Count Hep Bs Antibody, Quant Hep B Core Total Ab Hepatitis Be Antigen HIV-1 RNA PCR copies/ml HIV-1 RNA (PCR) log 09/13/17 09/13/17 09/13/17 09:24 11:48 17:26 WBC RBC Hgb Hct MCV MCH RDW Plt Count Lymph % (Auto) Webb % (Auto) Lymph # Seg Neutrophils % Seg Neuts % (Manual) Lymphocytes % (Manual) Nucleated RBC % Seg Neutrophils # Man Lymphocytes # (Manual) PT INR Fibrinogen D-Dimer POC ABG pH POC ABG pCO2 POC ABG pO2 Sodium Potassium Chloride Carbon Dioxide 31 H BUN 33 H Creatinine 0.6 L Glucose 177 H POC Glucose 196 H 163 H Lactic Acid Calcium Phosphorus Magnesium AST ALT Lactate Dehydrogenase C-Reactive Protein NT-Pro-B Natriuret Pep Total Protein Albumin Lipase Vancomycin Trough Lymph Enumerat CD4/CD8 % CD4 Cells Absolute CD4 Count % CD8 Cells % CD19 Cells Absolute CD19 Count Hep Bs Antibody, Quant Hep B Core Total Ab Hepatitis Be Antigen HIV-1 RNA PCR copies/ml HIV-1 RNA (PCR) log 09/13/17 09/14/1709/14/18 23:59 05:33 06:14 WBC RBC Hgb Hct MCV MCH RDW Plt Count Lymph % (Auto) Webb % (Auto) Lymph # Seg Neutrophils % Seg Neuts % (Manual) Lymphocytes % (Manual) Nucleated RBC % Seg Neutrophils # Man Lymphocytes # (Manual) PT INR Fibrinogen D-Dimer POC ABG pH POC ABG pCO2 52.0 H POC ABG pO2 Sodium Potassium Chloride Carbon Dioxide BUN Creatinine Glucose POC Glucose 162 H 136 H Lactic Acid Calcium Phosphorus Magnesium AST ALT Lactate Dehydrogenase C-Reactive Protein NT-Pro-B Natriuret Pep Total Protein Albumin Lipase Vancomycin Trough Lymph Enumerat CD4/CD8 % CD4 Cells Absolute CD4 Count % CD8 Cells % CD19 Cells Absolute CD19 Count Hep Bs Antibody, Quant Hep B Core Total Ab Hepatitis Be Antigen HIV-1 RNA PCR copies/ml HIV-1 RNA (PCR) log 09/14/17 09/14/17 09/14/17 12:00 12:15 18:08 WBC RBC Hgb Hct MCV MCH RDW Plt Count Lymph % (Auto) Webb % (Auto) Lymph # Seg Neutrophils % Seg Neuts % (Manual) Lymphocytes % (Manual) Nucleated RBC % Seg Neutrophils # Man Lymphocytes # (Manual) PT INR Fibrinogen D-Dimer POC ABG pH POC ABG pCO2 POC ABG pO2 Sodium Potassium Chloride Carbon Dioxide BUN Creatinine Glucose POC Glucose 154 H 152 H Lactic Acid Calcium Phosphorus Magnesium AST ALT Lactate Dehydrogenase C-Reactive Protein NT-Pro-B Natriuret Pep Total Protein Albumin Lipase Vancomycin Trough 22.0 H Lymph Enumerat CD4/CD8 % CD4 Cells Absolute CD4 Count % CD8 Cells % CD19 Cells Absolute CD19 Count Hep Bs Antibody, Quant Hep B Core Total Ab Hepatitis Be Antigen HIV-1 RNA PCR copies/ml HIV-1 RNA (PCR) log 09/14/17 09/15/17 09/15/17 23:38 09:50 09:50 WBC RBC 3.64 L Hgb 10.3 L Hct 31.1 L MCV MCH RDW 15.8 H Plt Count Lymph % (Auto) Webb % (Auto) Lymph # Seg Neutrophils % Seg Neuts % (Manual) Lymphocytes % (Manual) Nucleated RBC % Seg Neutrophils # Man Lymphocytes # (Manual) PT INR Fibrinogen D-Dimer POC ABG pH POC ABG pCO2 POC ABG pO2 Sodium Potassium Chloride Carbon Dioxide BUN 26 H Creatinine 0.6 L Glucose POC Glucose 110 H Lactic Acid Calcium Phosphorus Magnesium AST 79 H ALT 134 H Lactate Dehydrogenase C-Reactive Protein NT-Pro-B Natriuret Pep Total Protein Albumin 2.1 L Lipase Vancomycin Trough Lymph Enumerat CD4/CD8 % CD4 Cells Absolute CD4 Count % CD8 Cells % CD19 Cells Absolute CD19 Count Hep Bs Antibody, Quant Hep B Core Total Ab Hepatitis Be Antigen HIV-1 RNA PCR copies/ml HIV-1 RNA (PCR) log 09/15/17 09/16/17 09/16/17 09:50 05:46 06:51 WBC RBC 3.59 L Hgb 10.2 L Hct 30.5 L MCV MCH RDW 16.1 H Plt Count Lymph % (Auto) 12.9 L Webb % (Auto) 9.6 H Lymph # 1.0 L Seg Neutrophils % 75.7 H Seg Neuts % (Manual) Lymphocytes % (Manual) Nucleated RBC % Seg Neutrophils # Man Lymphocytes # (Manual) PT INR Fibrinogen D-Dimer POC ABG pH POC ABG pCO2 POC ABG pO2 Sodium Potassium Chloride Carbon Dioxide BUN Creatinine Glucose POC Glucose 132 H Lactic Acid Calcium Phosphorus Magnesium AST ALT Lactate Dehydrogenase C-Reactive Protein NT-Pro-B Natriuret Pep 4222 H Total Protein Albumin Lipase Vancomycin Trough Lymph Enumerat CD4/CD8 % CD4 Cells Absolute CD4 Count % CD8 Cells % CD19 Cells Absolute CD19 Count Hep Bs Antibody, Quant Hep B Core Total Ab Hepatitis Be Antigen HIV-1 RNA PCR copies/ml HIV-1 RNA (PCR) log 09/16/17 09/16/17 09/16/17 06:51 11:53 17:43 WBC RBC Hgb Hct MCV MCH RDW Plt Count Lymph % (Auto) Webb % (Auto) Lymph # Seg Neutrophils % Seg Neuts % (Manual) Lymphocytes % (Manual) Nucleated RBC % Seg Neutrophils # Man Lymphocytes # (Manual) PT INR Fibrinogen D-Dimer POC ABG pH POC ABG pCO2 POC ABG pO2 Sodium Potassium Chloride Carbon Dioxide BUN 33 H Creatinine 0.7 L Glucose 115 H POC Glucose 107 H 189 H Lactic Acid Calcium Phosphorus Magnesium AST ALT Lactate Dehydrogenase C-Reactive Protein NT-Pro-B Natriuret Pep Total Protein Albumin Lipase Vancomycin Trough Lymph Enumerat CD4/CD8 % CD4 Cells Absolute CD4 Count % CD8 Cells % CD19 Cells Absolute CD19 Count Hep Bs Antibody, Quant Hep B Core Total Ab Hepatitis Be Antigen HIV-1 RNA PCR copies/ml HIV-1 RNA (PCR) log 0309/17/17 09/17/17 00:00 06:03 12:15 WBC RBC Hgb Hct MCV MCH RDW Plt Count Lymph % (Auto) Webb % (Auto) Lymph # Seg Neutrophils % Seg Neuts % (Manual) Lymphocytes % (Manual) Nucleated RBC % Seg Neutrophils # Man Lymphocytes # (Manual) PT INR Fibrinogen D-Dimer POC ABG pH POC ABG pCO2 POC ABG pO2 Sodium Potassium Chloride Carbon Dioxide BUN Creatinine Glucose POC Glucose 149 H 126 H 168 H Lactic Acid Calcium Phosphorus Magnesium AST ALT Lactate Dehydrogenase C-Reactive Protein NT-Pro-B Natriuret Pep Total Protein Albumin Lipase Vancomycin Trough Lymph Enumerat CD4/CD8 % CD4 Cells Absolute CD4 Count % CD8 Cells % CD19 Cells Absolute CD19 Count Hep Bs Antibody, Quant Hep B Core Total Ab Hepatitis Be Antigen HIV-1 RNA PCR copies/ml HIV-1 RNA (PCR) log 09/17/17 09/18/17 09/18/17 17:13 00:22 11:51 WBC RBC Hgb Hct MCV MCH RDW Plt Count Lymph % (Auto) Webb % (Auto) Lymph # Seg Neutrophils % Seg Neuts % (Manual) Lymphocytes % (Manual) Nucleated RBC % Seg Neutrophils # Man Lymphocytes # (Manual) PT INR Fibrinogen D-Dimer POC ABG pH POC ABG pCO2 POC ABG pO2 Sodium Potassium Chloride Carbon Dioxide BUN Creatinine Glucose POC Glucose 162 H 132 H 109 H Lactic Acid Calcium Phosphorus Magnesium AST ALT Lactate Dehydrogenase C-Reactive Protein NT-Pro-B Natriuret Pep Total Protein Albumin Lipase Vancomycin Trough Lymph Enumerat CD4/CD8 % CD4 Cells Absolute CD4 Count % CD8 Cells % CD19 Cells Absolute CD19 Count Hep Bs Antibody, Quant Hep B Core Total Ab Hepatitis Be Antigen HIV-1 RNA PCR copies/ml HIV-1 RNA (PCR) log 09/18/17 09/18/17 17:56 21:15 WBC RBC Hgb Hct MCV MCH RDW Plt Count Lymph % (Auto) Webb % (Auto) Lymph # Seg Neutrophils % Seg Neuts % (Manual) Lymphocytes % (Manual) Nucleated RBC % Seg Neutrophils # Man Lymphocytes # (Manual) PT INR Fibrinogen D-Dimer POC ABG pH POC ABG pCO2 POC ABG pO2 Sodium Potassium Chloride Carbon Dioxide BUN Creatinine Glucose POC Glucose 133 H 114 H Lactic Acid Calcium Phosphorus Magnesium AST ALT Lactate Dehydrogenase C-Reactive Protein NT-Pro-B Natriuret Pep Total Protein Albumin Lipase Vancomycin Trough Lymph Enumerat CD4/CD8 % CD4 Cells Absolute CD4 Count % CD8 Cells % CD19 Cells Absolute CD19 Count Hep Bs Antibody, Quant Hep B Core Total Ab Hepatitis Be Antigen HIV-1 RNA PCR copies/ml HIV-1 RNA (PCR) log
[2017-09-19 13:36] LABS: HLA-B*5701 SEE SCANNED RESULT
[2017-09-19 13:37] LABS: HIV-1 Antibody Differentiation SEE SCANNED RESULT; HIV-2 Antibody Differentiation SEE SCANNED RESULT
--- NOTE | 2017-09-19 14:30 | XRay Report ---
AP ABDOMEN: HISTORY: Dobbhoff tube placement. The Dobbhoff tube terminates just beyond the GE junction in the fundus of the stomach. Consider advancement by 5-10 cm. The abdominal gas pattern is unremarkable. No masses or organomegaly is identified and there is no gross evidence of free air or fluid. No significant soft tissue calcifications are noted. There is moderate residual oral contrast in the distal small bowel and rectum. IMPRESSION: Unremarkable abdomen. Dobbhoff tube as described.
--- NOTE | 2017-09-19 15:45 | Progress Note ---
Assessment and Plan Assessment and plan: 52-year-old male presents to the emergency department with complaint of shortness of breath and some midsternal right-sided chest discomfort with inspiration that started earlier this afternoon and radiates towards the back. The patient was just discharged from the [facility] a few days ago after treated for bilateral pneumonia. He is on Bactrim and just finished a course of antifungal medication for oral thrush. He does not smoke or use illicit drugs. His physicians are through the [facility]. Patient was recently discharged from a 6 day hospital stay at the [facility]. He denies any leg swelling, nausea, vomiting or fever. Septic shock due to underlying pneumonia E. coli septicemia: unknown source ? Pneumonia ? UTI (UCx negative) ? GI -Blood cultures 09/01 positive 4 of 4 bottles. E coli sens to cefepime/zosyn -Repeat Blood cultures 09/04 negative. -TTE 09/02 no vegetations. - Patient is off pressors - Resolved Orophyrangeal Dysphagia - Failed swallow eval. NGT placed, May need Pegtube if no improvement Thrush -Fluconazole iv Pneumonia bacteria - Ramón neg rods, Gram Negative bacteremia - Will repeat CXR today Patient is on Bactrim and azithromycin for prophylaxis Acute hypoxemic respiratory failure intubated 09/01/17, on MV >96 hours, extubated on 09/16 17 - Saturating well off oxygen Hyperkalemia - corrected Anemia of chronic disease - Will follow closely - Gi evaluated him Hypernatremia - resolved multiple liver masses suspicious for metastatic disease - GI consulted and said it is likely hemangioma Portal vein thrombosis? not clearly seen on US, will need dedicated study when clinically more stable HIV- ID following hypokalemia - Repleted Patient took the IV line - NO FURTHER NEED FOR Restraints DVT GI prophylaxis with Lovenox and Pepcid History Interval history: Patient seen and examined, resting comfortably but very lathergic Hospitalist Physical - Physical exam Narrative exam: VITAL SIGNS: Reviewed. GENERAL: The patient appeared cachectic and malnurished appearing. Vital signs as documented. HEAD: No signs of head trauma. EYES: Pupils are equal. EARS: hearing is intact MOUTH: ET tube in place NECK: No adenopathy, no JVD. CHEST: Chest with diminished breath sounds bilaterally. No wheezes, rales, or rhonchi. CARDIAC: Regular rate and rhythm. S1 and S2, without murmurs, gallops, or rubs. VASCULAR: Trace Edema. Peripheral pulses normal and equal in all extremities. ABDOMEN: Soft, without detectable tenderness. No sign of distention. No rebound or guarding, and no masses palpated. Bowel Sounds normal. MUSCULOSKELETAL: Good range of motion of all major joints. Extremities without clubbing, cyanosis or edema. NEUROLOGIC EXAM: aaox3 very lathergic PSYCHIATRIC: mood anxious SKIN: No rash or lesions. - Constitutional Vitals: Temp Pulse Resp BP Pulse Ox 97.8 F 95 H 18 96/67 100 09/19/17 12:19 09/19/17 13:31 09/19/17 12:39 09/19/17 13:31 09/19/17 15:17 General appearance: Present: no acute distress, well-nourished, other (intubated ) Results - Labs CBC & Chem 7: 09/16/17 06:51 09/16/17 06:51 Labs: Laboratory Last Values WBC 8.1 K/mm3 (4.5-11.0) 09/16/17 06:51 RBC 3.59 M/mm3 (3.65-5.03) L 09/16/17 06:51 Hgb 10.2 gm/dl (11.8-15.2) L 09/16/17 06:51 Hct 30.5 % (35.5-45.6) L 09/16/17 06:51 MCV 85 fl (84-94) 09/16/17 06:51 MCH 28 pg (28-32) 09/16/17 06:51 MCHC 33 % (32-34) 09/16/17 06:51 RDW 16.1 % (13.2-15.2) H 09/16/17 06:51 Plt Count 262 K/mm3 (140-440) 09/16/17 06:51 Lymph % (Auto) 12.9 % (13.4-35.0) L 09/16/17 06:51 [place] % (Auto) 9.6 % (0.0-7.3) H 09/16/17 06:51 Eos % (Auto) 1.6 % (0.0-4.3) 09/16/17 06:51 Baso % (Auto) 0.2 % (0.0-1.8) 09/16/17 06:51 Lymph # 1.0 K/mm3 (1.2-5.4) L 09/16/17 06:51 [place] # 0.8 K/mm3 (0.0-0.8) 09/16/17 06:51 Eos # 0.1 K/mm3 (0.0-0.4) 09/16/17 06:51 Baso # 0.0 K/mm3 (0.0-0.1) 09/16/17 06:51 Add Manual Diff Complete 09/11/17 06:00 Total Counted 100 09/11/17 06:00 Seg Neutrophils % 75.7 % (40.0-70.0) H 09/16/17 06:51 Seg Neuts % (Manual) 99.0 % (40.0-70.0) H 09/11/17 06:00 Band Neutrophils % 0 % 09/11/17 06:00 Lymphocytes % (Manual) 0 % (13.4-35.0) L 09/11/17 06:00 Reactive Lymphs % (Man) 0 % 09/11/17 06:00 Monocytes % (Manual) 1.0 % (0.0-7.3) 09/11/17 06:00 Eosinophils % (Manual) 0 % (0.0-4.3) 09/11/17 06:00 Basophils % (Manual) 0 % (0.0-1.8) 09/11/17 06:00 Metamyelocytes % 0 % 09/11/17 06:00 Myelocytes % 0 % 09/11/17 06:00 Promyelocytes % 0 % 09/11/17 06:00 Blast Cells % 0 % 09/11/17 06:00 Nucleated RBC % Not Reportable 09/11/17 06:00 Seg Neutrophils # 6.2 K/mm3 (1.8-7.7) 09/16/17 06:51 Seg Neutrophils # Man 15.7 K/mm3 (1.8-7.7) H 09/11/17 06:00 Band Neutrophils # 0.0 K/mm3 09/11/17 06:00 Abs Lymphs (Manual) 1470 cells/uL (850-3900) 09/05/17 14:30 Lymphocytes # (Manual) 0.0 K/mm3 (1.2-5.4) L 09/11/17 06:00 Abs React Lymphs (Man) 0.0 K/mm3 09/11/17 06:00 Monocytes # (Manual) 0.2 K/mm3 (0.0-0.8) 09/11/17 06:00 Eosinophils # (Manual) 0.0 K/mm3 (0.0-0.4) 09/11/17 06:00 Basophils # (Manual) 0.0 K/mm3 (0.0-0.1) 09/11/17 06:00 Metamyelocytes # 0.0 K/mm3 09/11/17 06:00 Myelocytes # 0.0 K/mm3 09/11/17 06:00 Promyelocytes # 0.0 K/mm3 09/11/17 06:00 Blast Cells # 0.0 K/mm3 09/11/17 06:00 WBC Morphology Not Reportable 09/11/17 06:00 Hypersegmented Neuts Not Reportable 09/11/17 06:00 Hyposegmented Neuts Not Reportable 09/11/17 06:00 Hypogranular Neuts Not Reportable 09/11/17 06:00 Smudge Cells Not Reportable 09/11/17 06:00 Toxic Granulation Not Reportable 09/11/17 06:00 Toxic Vacuolation Not Reportable 09/11/17 06:00 Dohle Bodies Not Reportable 09/11/17 06:00 Pelger-Huet Anomaly Not Reportable 09/11/17 06:00 Efren Rods Not Reportable 09/11/17 06:00 Platelet Estimate Cons 09/11/17 06:00 Clumped Platelets Not Reportable 09/11/17 06:00 Plt Clumps, EDTA Not Reportable 09/11/17 06:00 Large Platelets Few 09/11/17 06:00 Giant Platelets Not Reportable 09/11/17 06:00 Platelet Satelliting Not Reportable 09/11/17 06:00 Plt Morphology Comment Not Reportable 09/11/17 06:00 RBC Morphology Not Reportable 09/11/17 06:00 Dimorphic RBCs Not Reportable 09/11/17 06:00 Polychromasia Not Reportable 09/11/17 06:00 Hypochromasia Not Reportable 09/11/17 06:00 Poikilocytosis Not Reportable 09/11/17 06:00 Anisocytosis 1+ 09/11/17 06:00 Microcytosis Not Reportable 09/11/17 06:00 Macrocytosis Not Reportable 09/11/17 06:00 Spherocytes Not Reportable 09/11/17 06:00 Pappenheimer Bodies Not Reportable 09/11/17 06:00 Sickle Cells Not Reportable 09/11/17 06:00 Target Cells Not Reportable 09/11/17 06:00 Tear Drop Cells Not Reportable 09/11/17 06:00 Ovalocytes Not Reportable 09/11/17 06:00 Helmet Cells Not Reportable 09/11/17 06:00 [place] Bodies Not Reportable 09/11/17 06:00 [place] Rings Not Reportable 09/11/17 06:00 Mayo Cells Not Reportable 09/11/17 06:00 Bite Cells Not Reportable 09/11/17 06:00 Crenated Cell Not Reportable 09/11/17 06:00 Elliptocytes Not Reportable 09/11/17 06:00 Acanthocytes (Spur) Not Reportable 09/11/17 06:00 Rouleaux Not Reportable 09/11/17 06:00 Hemoglobin C Crystals Not Reportable 09/11/17 06:00 Schistocytes Not Reportable 09/11/17 06:00 Malaria parasites Not Reportable 09/11/17 06:00 Scott Bodies Not Reportable 09/11/17 06:00 Hem Pathologist Commnt No 09/11/17 06:00 PT 14.7 Sec. (12.2-14.9) 09/12/17 10:29 INR 1.09 (0.87-1.13) 09/12/17 10:29 APTT 26.2 Sec. (24.2-36.6) 09/12/17 10:29 Fibrinogen 611 mg/dl (211-480) H 09/04/17 17:23 D-Dimer 976.43 ng/mlDDU (0-234) H 09/01/17 23:27 POC ABG pH 7.415 (7.35-7.45) 09/14/17 06:14 POC ABG pCO2 52.0 (35-45) H 09/14/17 06:14 POC ABG pO2 85 (80-105) 09/14/17 06:14 POC ABG HCO3 33.3 09/14/17 06:14 POC ABG Total CO2 35 09/14/17 06:14 POC ABG O2 Sat 96 09/14/17 06:14 POC ABG Base Excess 9 09/14/17 06:14 FiO2 30 % 09/14/17 06:14 Sodium 140 mmol/L (137-145) 09/16/17 06:51 Potassium 3.6 mmol/L (3.6-5.0) 09/16/17 06:51 Chloride 106.6 mmol/L (98-107) 09/16/17 06:51 Carbon Dioxide 28 mmol/L (22-30) 09/16/17 06:51 Anion Gap 9 mmol/L 09/16/17 06:51 BUN 33 mg/dL (9-20) H 09/16/17 06:51 Creatinine 0.7 mg/dL (0.8-1.5) L 09/16/17 06:51 Estimated GFR > 60 ml/min 09/16/17 06:51 BUN/Creatinine Ratio 47 % 09/16/17 06:51 Glucose 115 mg/dL (75-100) H 09/16/17 06:51 POC Glucose 115 (70-105) H 09/19/17 12:28 Lactic Acid 2.90 mmol/L (0.7-2.0) H* 09/06/17 08:03 Calcium 9.4 mg/dL (8.4-10.2) 09/16/17 06:51 Phosphorus 2.50 mg/dL (2.5-4.5) 09/13/17 09:24 Magnesium 2.00 mg/dL (1.7-2.3) 09/13/17 09:24 Total Bilirubin 0.50 mg/dL (0.1-1.2) 09/15/17 09:50 AST 79 units/L (5-40) H 09/15/17 09:50 ALT 134 units/L (7-56) H 09/15/17 09:50 Alkaline Phosphatase 83 units/L (35-129) 09/15/17 09:50 Lactate Dehydrogenase 571 units/L (91-180) H 09/05/17 10:55 Troponin T < 0.010 ng/mL (0.00-0.029) 09/01/17 23:27 C-Reactive Protein 1.60 mg/dL (0.00-1.30) H 09/12/17 21:44 NT-Pro-B Natriuret Pep 4222 pg/mL (0-900) H 09/15/17 09:50 Total Protein 7.4 g/dL (6.3-8.2) 09/15/17 09:50 Albumin 2.1 g/dL (3.9-5) L 09/15/17 09:50 Albumin/Globulin Ratio 0.4 % 09/15/17 09:50 Lipase 12 units/L (13-60) L 09/04/17 17:23 Vancomycin Trough 22.0 ug/mL (5.0-20.0) H 09/14/17 12:00 Lymph Enumerat CD4/CD8 0.10 (0.86-5.00) L 09/05/17 14:30 % CD3 Cells 75 % (57-85) 09/05/17 14:30 Absolute CD3 Count 1105 cells/uL (840-3060) 09/05/17 14:30 % CD4 Cells 7 % (30-61) L 09/05/17 14:30 Absolute CD4 Count 101 cells/uL (490-1740) L 09/05/17 14:30 % CD8 Cells 66 % (12-42) H 09/05/17 14:30 Absolute CD8 Count 986 cells/uL (180-1170) 09/05/17 14:30 % CD19 Cells 4 % (6-29) L 09/05/17 14:30 Absolute CD19 Count 60 cells/uL (110-660) 09/05/17 14:30 HLA-B*[id number] See scanned result 09/05/17 14:30 RPR Nonreactive (Nonreactive) 09/07/17 04:13 Hepatitis A IgM Ab Non-reactive (NonReactive) 09/05/17 10:55 Hep Bs Antigen Reactive (Negative) 09/05/17 10:55 Hep Bs Antibody, Quant <5 mIU/mL (>=10) L 09/07/17 04:13 Hep B Core Total Ab Reactive (Nonreactive) H 09/07/17 04:13 Hep B Core IgM Ab Non-reactive (NonReactive) 09/05/17 10:55 Hepatitis Be Antibody Nonreactive 09/07/17 04:13 Hepatitis Be Antigen Reactive H 09/07/17 04:13 Hepatitis C Antibody Non-reactive (NonReactive) 09/05/17 10:55 HIV-1 Antibody See scanned result 09/03/17 07:40 HIV-1 RNA PCR copies/ml 1750 Copies/mL H 09/05/17 14:30 HIV-1 RNA (PCR) log 3.24 Log cps/mL H 09/05/17 14:30 HIV-1 Genotyping see below 09/05/17 14:30 HIV-2 Ab (Immunoblot) See scanned result 09/03/17 07:40 HIV 1&2 Antibody Rapid Reactive (Non React) 09/02/17 19:34 HIV P24 Antigen Non react (Non React) 09/02/17 19:34 Urine Legionella Ag Not detected (Not Detected) 09/02/17 13:55 TB (QFT) Gold In Tube Negative (Negative) 09/05/17 14:30 TB Test (QFT) Nil 0.04 IU/mL 09/05/17 14:30 TB Test Mitogen - Nil 2.28 IU/mL 09/05/17 14:30 TB Test Antigen - Nil 0.00 IU/mL 09/05/17 14:30 Miscellaneous Test Flexitest 1 09/06/17 11:30 Result Reviewed By See scanned result 09/05/17 14:30
[2017-09-19] MEDS: NYSTATIN PO SCH ×2 (17:09→22:34)
--- NOTE | 2017-09-19 19:20 | XRay Report ---
FINAL REPORT PROCEDURE: XR ABDOMEN 1V AP TECHNIQUE: Abdominal radiograph, single supine AP view. HISTORY: Dobhoff advanced, placement confirmation COMPARISON: No prior studies are available for comparison. FINDINGS: Feeding tube tip is in the mid stomach. This could be advanced 10 centimeters to the gastroduodenal junction if clinically indicated. Contrast material is seen in the colon. No dilated loops of bowel are seen. IMPRESSION: Enteric tube tip is in the mid stomach
[2017-09-19] MEDS: DIFLUCAN 200 MG/100 ML BAG IV SCH (21:15)
[2017-09-20] MEDS: NOVOLOG SUB-Q SCH ×4 (01:45→18:54)
--- NOTE | 2017-09-20 03:40 | XRay Report ---
FINAL REPORT EXAM: XR ABDOMEN 1V AP HISTORY: dobhoff placement TECHNIQUE: An AP view of the lower chest and upper abdomen was obtained. Comparison is made to the study of 09/19/2017. FINDINGS: The tip of the Dobhoff tube is in the mid stomach. It is not advanced since the previous study. The bowel gas pattern otherwise is unremarkable. Free air is not seen. The lung bases are clear. IMPRESSION: Tip of the Dobhoff tube is in the mid stomach. It is not advanced since the previous study.
[2017-09-20 06:03] LABS: Hematocrit 33.7 % (35.5-45.6); Hemoglobin 11.1 gm/dl (11.8-15.2); Mean Corpuscular HGB Conc 33 % (32-34); Mean Corpuscular Hemoglobin 28 pg (28-32); Mean Corpuscular Volume 86 fl (84-94); Platelet Count 312 K/mm3 (140-440); Red Cell Distribution Width 17.3 % (13.2-15.2)
[2017-09-20 06:17] LABS: BUN/Creatinine Ratio 42; Blood Urea Nitrogen 42 mg/dL (9-20); Calcium 10.5 mg/dL (8.4-10.2); Hemolysis Index 4
--- NOTE | 2017-09-20 10:15 | Progress Note ---
Assessment and Plan Assessment and plan: 52-year-old male presents to the emergency department with complaint of shortness of breath and some midsternal right-sided chest discomfort with inspiration that started earlier this afternoon and radiates towards the back. The patient was just discharged from the [facility] a few days ago after treated for bilateral pneumonia. He is on Bactrim and just finished a course of antifungal medication for oral thrush. He does not smoke or use illicit drugs. His physicians are through the [facility]. Patient was recently discharged from a 6 day hospital stay at the [facility]. He denies any leg swelling, nausea, vomiting or fever. Septic shock due to underlying pneumonia E. coli septicemia: unknown source ? Pneumonia ? UTI (UCx negative) ? GI -Blood cultures 09/01 positive 4 of 4 bottles. E coli sens to cefepime/zosyn -Repeat Blood cultures 09/04 negative. -TTE 09/02 no vegetations. - Patient is off pressors - Resolved Orophyrangeal Dysphagia - ENT consult for aphonia - Failed swallow eval. NGT placed, May need Pegtube if no improvement Thrush -Fluconazole iv Pneumonia bacteria - Ramón neg rods, Gram Negative bacteremia - Will repeat CXR today Patient is on Bactrim and azithromycin for prophylaxis Acute hypoxemic respiratory failure intubated 09/01/17, on MV >96 hours, extubated on 09/16 17 - Saturating well off oxygen Hyperkalemia - corrected Anemia of chronic disease - Will follow closely - Gi evaluated him Hypernatremia - resolved multiple liver masses suspicious for metastatic disease - GI consulted and said it is likely hemangioma Portal vein thrombosis? not clearly seen on US, will need dedicated study when clinically more stable HIV- ID following Metabolic Encephalopathy -possible underlying Delirium -Restriants re-applied for patient safety DVT GI prophylaxis with Lovenox and Pepcid History Interval history: Patient seen and examined, resting comfortably but very lethargic, vocalization is soft and hard to understand, although at times improved. Hospitalist Physical - Physical exam Narrative exam: VITAL SIGNS: Reviewed. GENERAL: The patient appeared cachectic and malnurished appearing. Vital signs as documented. HEAD: No signs of head trauma. EYES: Pupils are equal. EARS: hearing is intact MOUTH: no acute abnormality noted, no stridor NECK: No adenopathy, no JVD. CHEST: Chest with diminished breath sounds bilaterally. No wheezes, rales, or rhonchi. CARDIAC: Regular rate and rhythm. S1 and S2, without murmurs, gallops, or rubs. VASCULAR: Trace Edema. Peripheral pulses normal and equal in all extremities. ABDOMEN: Soft, scalfod without detectable tenderness. No sign of distention. No rebound or guarding, and no masses palpated. Bowel Sounds normal. MUSCULOSKELETAL: Good range of motion of all major joints. Extremities without clubbing, cyanosis or edema. NEUROLOGIC EXAM: aaox3 very lathergic PSYCHIATRIC: mood anxious SKIN: No rash or lesions. - Constitutional Vitals: Temp Pulse Resp BP Pulse Ox 97.9 F 102 H 16 111/76 100 09/20/17 08:45 09/20/17 08:45 09/20/17 08:45 09/20/17 08:45 09/20/17 08:45 General appearance: Present: no acute distress, well-nourished, other (intubated ) Results - Labs CBC & Chem 7: 09/20/17 05:26 09/20/17 05:26 Labs: Laboratory Last Values WBC 8.7 K/mm3 (4.5-11.0) 09/20/17 05:26 RBC 3.90 M/mm3 (3.65-5.03) 09/20/17 05:26 Hgb 11.1 gm/dl (11.8-15.2) L 09/20/17 05:26 Hct 33.7 % (35.5-45.6) L 09/20/17 05:26 MCV 86 fl (84-94) 09/20/17 05:26 MCH 28 pg (28-32) 09/20/17 05:26 MCHC 33 % (32-34) 09/20/17 05:26 RDW 17.3 % (13.2-15.2) H 09/20/17 05:26 Plt Count 312 K/mm3 (140-440) 09/20/17 05:26 Lymph % (Auto) 12.9 % (13.4-35.0) L 09/16/17 06:51 [place] % (Auto) 9.6 % (0.0-7.3) H 09/16/17 06:51 Eos % (Auto) 1.6 % (0.0-4.3) 09/16/17 06:51 Baso % (Auto) 0.2 % (0.0-1.8) 09/16/17 06:51 Lymph # 1.0 K/mm3 (1.2-5.4) L 09/16/17 06:51 [place] # 0.8 K/mm3 (0.0-0.8) 09/16/17 06:51 Eos # 0.1 K/mm3 (0.0-0.4) 09/16/17 06:51 Baso # 0.0 K/mm3 (0.0-0.1) 09/16/17 06:51 Add Manual Diff Complete 09/11/17 06:00 Total Counted 100 09/11/17 06:00 Seg Neutrophils % 75.7 % (40.0-70.0) H 09/16/17 06:51 Seg Neuts % (Manual) 99.0 % (40.0-70.0) H 09/11/17 06:00 Band Neutrophils % 0 % 09/11/17 06:00 Lymphocytes % (Manual) 0 % (13.4-35.0) L 09/11/17 06:00 Reactive Lymphs % (Man) 0 % 09/11/17 06:00 Monocytes % (Manual) 1.0 % (0.0-7.3) 09/11/17 06:00 Eosinophils % (Manual) 0 % (0.0-4.3) 09/11/17 06:00 Basophils % (Manual) 0 % (0.0-1.8) 09/11/17 06:00 Metamyelocytes % 0 % 09/11/17 06:00 Myelocytes % 0 % 09/11/17 06:00 Promyelocytes % 0 % 09/11/17 06:00 Blast Cells % 0 % 09/11/17 06:00 Nucleated RBC % Not Reportable 09/11/17 06:00 Seg Neutrophils # 6.2 K/mm3 (1.8-7.7) 09/16/17 06:51 Seg Neutrophils # Man 15.7 K/mm3 (1.8-7.7) H 09/11/17 06:00 Band Neutrophils # 0.0 K/mm3 09/11/17 06:00 Abs Lymphs (Manual) 1470 cells/uL (850-3900) 09/05/17 14:30 Lymphocytes # (Manual) 0.0 K/mm3 (1.2-5.4) L 09/11/17 06:00 Abs React Lymphs (Man) 0.0 K/mm3 09/11/17 06:00 Monocytes # (Manual) 0.2 K/mm3 (0.0-0.8) 09/11/17 06:00 Eosinophils # (Manual) 0.0 K/mm3 (0.0-0.4) 09/11/17 06:00 Basophils # (Manual) 0.0 K/mm3 (0.0-0.1) 09/11/17 06:00 Metamyelocytes # 0.0 K/mm3 09/11/17 06:00 Myelocytes # 0.0 K/mm3 09/11/17 06:00 Promyelocytes # 0.0 K/mm3 09/11/17 06:00 Blast Cells # 0.0 K/mm3 09/11/17 06:00 WBC Morphology Not Reportable 09/11/17 06:00 Hypersegmented Neuts Not Reportable 09/11/17 06:00 Hyposegmented Neuts Not Reportable 09/11/17 06:00 Hypogranular Neuts Not Reportable 09/11/17 06:00 Smudge Cells Not Reportable 09/11/17 06:00 Toxic Granulation Not Reportable 09/11/17 06:00 Toxic Vacuolation Not Reportable 09/11/17 06:00 Dohle Bodies Not Reportable 09/11/17 06:00 Pelger-Huet Anomaly Not Reportable 09/11/17 06:00 Efren Rods Not Reportable 09/11/17 06:00 Platelet Estimate Cons 09/11/17 06:00 Clumped Platelets Not Reportable 09/11/17 06:00 Plt Clumps, EDTA Not Reportable 09/11/17 06:00 Large Platelets Few 09/11/17 06:00 Giant Platelets Not Reportable 09/11/17 06:00 Platelet Satelliting Not Reportable 09/11/17 06:00 Plt Morphology Comment Not Reportable 09/11/17 06:00 RBC Morphology Not Reportable 09/11/17 06:00 Dimorphic RBCs Not Reportable 09/11/17 06:00 Polychromasia Not Reportable 09/11/17 06:00 Hypochromasia Not Reportable 09/11/17 06:00 Poikilocytosis Not Reportable 09/11/17 06:00 Anisocytosis 1+ 09/11/17 06:00 Microcytosis Not Reportable 09/11/17 06:00 Macrocytosis Not Reportable 09/11/17 06:00 Spherocytes Not Reportable 09/11/17 06:00 Pappenheimer Bodies Not Reportable 09/11/17 06:00 Sickle Cells Not Reportable 09/11/17 06:00 Target Cells Not Reportable 09/11/17 06:00 Tear Drop Cells Not Reportable 09/11/17 06:00 Ovalocytes Not Reportable 09/11/17 06:00 Helmet Cells Not Reportable 09/11/17 06:00 [place] Bodies Not Reportable 09/11/17 06:00 [place] Rings Not Reportable 09/11/17 06:00 [place] Cells Not Reportable 09/11/17 06:00 Bite Cells Not Reportable 09/11/17 06:00 Crenated Cell Not Reportable 09/11/17 06:00 Elliptocytes Not Reportable 09/11/17 06:00 Acanthocytes (Spur) Not Reportable 09/11/17 06:00 Rouleaux Not Reportable 09/11/17 06:00 Hemoglobin C Crystals Not Reportable 09/11/17 06:00 Schistocytes Not Reportable 09/11/17 06:00 Malaria parasites Not Reportable 09/11/17 06:00 Scott Bodies Not Reportable 09/11/17 06:00 Hem Pathologist Commnt No 09/11/17 06:00 PT 14.7 Sec. (12.2-14.9) 09/12/17 10:29 INR 1.09 (0.87-1.13) 09/12/17 10:29 APTT 26.2 Sec. (24.2-36.6) 09/12/17 10:29 Fibrinogen 611 mg/dl (211-480) H 09/04/17 17:23 D-Dimer 976.43 ng/mlDDU (0-234) H 09/01/17 23:27 POC ABG pH 7.415 (7.35-7.45) 09/14/17 06:14 POC ABG pCO2 52.0 (35-45) H 09/14/17 06:14 POC ABG pO2 85 (80-105) 09/14/17 06:14 POC ABG HCO3 33.3 09/14/17 06:14 POC ABG Total CO2 35 09/14/17 06:14 POC ABG O2 Sat 96 09/14/17 06:14 POC ABG Base Excess 9 09/14/17 06:14 FiO2 30 % 09/14/17 06:14 Sodium 148 mmol/L (137-145) H D 09/20/17 05:26 Potassium 3.7 mmol/L (3.6-5.0) 09/20/17 05:26 Chloride 110.6 mmol/L (98-107) H 09/20/17 05:26 Carbon Dioxide 28 mmol/L (22-30) 09/20/17 05:26 Anion Gap 13 mmol/L 09/20/17 05:26 BUN 42 mg/dL (9-20) H 09/20/17 05:26 Creatinine 1.0 mg/dL (0.8-1.5) 09/20/17 05:26 Estimated GFR > 60 ml/min 09/20/17 05:26 BUN/Creatinine Ratio 42 % 09/20/17 05:26 Glucose 97 mg/dL (75-100) 09/20/17 05:26 POC Glucose 94 (70-105) 09/20/17 01:14 Lactic Acid 2.90 mmol/L (0.7-2.0) H* 09/06/17 08:03 Calcium 10.5 mg/dL (8.4-10.2) H 09/20/17 05:26 Phosphorus 2.50 mg/dL (2.5-4.5) 09/13/17 09:24 Magnesium 2.00 mg/dL (1.7-2.3) 09/13/17 09:24 Total Bilirubin 0.50 mg/dL (0.1-1.2) 09/15/17 09:50 AST 79 units/L (5-40) H 09/15/17 09:50 ALT 134 units/L (7-56) H 09/15/17 09:50 Alkaline Phosphatase 83 units/L (35-129) 09/15/17 09:50 Lactate Dehydrogenase 571 units/L (91-180) H 09/05/17 10:55 Troponin T < 0.010 ng/mL (0.00-0.029) 09/01/17 23:27 C-Reactive Protein 1.60 mg/dL (0.00-1.30) H 09/12/17 21:44 NT-Pro-B Natriuret Pep 4222 pg/mL (0-900) H 09/15/17 09:50 Total Protein 7.4 g/dL (6.3-8.2) 09/15/17 09:50 Albumin 2.1 g/dL (3.9-5) L 09/15/17 09:50 Albumin/Globulin Ratio 0.4 % 09/15/17 09:50 Lipase 12 units/L (13-60) L 09/04/17 17:23 Vancomycin Trough 22.0 ug/mL (5.0-20.0) H 09/14/17 12:00 Lymph Enumerat CD4/CD8 0.10 (0.86-5.00) L 09/05/17 14:30 % CD3 Cells 75 % (57-85) 09/05/17 14:30 Absolute CD3 Count 1105 cells/uL (840-3060) 09/05/17 14:30 % CD4 Cells 7 % (30-61) L 09/05/17 14:30 Absolute CD4 Count 101 cells/uL (490-1740) L 09/05/17 14:30 % CD8 Cells 66 % (12-42) H 09/05/17 14:30 Absolute CD8 Count 986 cells/uL (180-1170) 09/05/17 14:30 % CD19 Cells 4 % (6-29) L 09/05/17 14:30 Absolute CD19 Count 60 cells/uL (110-660) L 09/05/17 14:30 HLA-B*5701 See scanned result 09/05/17 14:30 RPR Nonreactive (Nonreactive) 09/07/17 04:13 Hepatitis A IgM Ab Non-reactive (NonReactive) 09/05/17 10:55 Hep Bs Antigen Reactive (Negative) 09/05/17 10:55 Hep Bs Antibody, Quant <5 mIU/mL (>=10) L 09/07/17 04:13 Hep B Core Total Ab Reactive (Nonreactive) H 09/07/17 04:13 Hep B Core IgM Ab Non-reactive (NonReactive) 09/05/17 10:55 Hepatitis Be Antibody Nonreactive 09/07/17 04:13 Hepatitis Be Antigen Reactive H 09/07/17 04:13 Hepatitis C Antibody Non-reactive (NonReactive) 09/05/17 10:55 HIV-1 Antibody See scanned result 09/03/17 07:40 HIV-1 RNA PCR copies/ml 1750 Copies/mL H 09/05/17 14:30 HIV-1 RNA (PCR) log 3.24 Log cps/mL H 09/05/17 14:30 HIV-1 Genotyping see below 09/05/17 14:30 HIV-2 Ab (Immunoblot) See scanned result 09/03/17 07:40 HIV 1&2 Antibody Rapid Reactive (Non React) 09/02/17 19:34 HIV P24 Antigen Non react (Non React) 09/02/17 19:34 Urine Legionella Ag Not detected (Not Detected) 09/02/17 13:55 TB (QFT) Gold In Tube Negative (Negative) 09/05/17 14:30 TB Test (QFT) Nil 0.04 IU/mL 09/05/17 14:30 TB Test Mitogen - Nil 2.28 IU/mL 09/05/17 14:30 TB Test Antigen - Nil 0.00 IU/mL 09/05/17 14:30 Miscellaneous Test Flexitest 1 09/06/17 11:30 Result Reviewed By See scanned result 09/05/17 14:30
[2017-09-20] MEDS: DIFLUCAN 200 MG/100 ML BAG IV SCH (11:38)
[2017-09-20] MEDS: LOVENOX SUB-Q SCH (11:38)
[2017-09-20] MEDS: LASIX IV SCH (11:39)
[2017-09-20] MEDS: NYSTATIN PO SCH ×4 (11:39→21:10)
[2017-09-20] MEDS: BACTRIM DS PO SCH (11:39)
[2017-09-20] MEDS: PEPCID PO SCH ×2 (11:39→21:11)
[2017-09-20] MEDS: COREG PO SCH ×2 (11:39→21:11)
[2017-09-20] MEDS: ATIVAN IV PRN (21:10)
[2017-09-21] MEDS: NOVOLOG SUB-Q SCH ×3 (01:08→12:00)
[2017-09-21] MEDS ORDERED: NACL 0.9% 1000 ML 1,000 ML IV ONE (05:30)
[2017-09-21] MEDS ORDERED: D5W/0.45% NACL/KCL 10 MEQ 10 MEQ/1,000 ML BAG IV SCH (06:00)
[2017-09-21 06:37] LABS: Mean Corpuscular HGB Conc 32 % (32-34); Mean Corpuscular Hemoglobin 28 pg (28-32); Mean Corpuscular Volume 89 fl (84-94); Platelet Count 316 K/mm3 (140-440); Red Blood Count 4.27 M/mm3 (3.65-5.03); Red Cell Distribution Width 18.1 % (13.2-15.2)
[2017-09-21 07:02] LABS: BUN/Creatinine Ratio 42; Blood Urea Nitrogen 59 mg/dL (9-20); Hemolysis Index 14
--- NOTE | 2017-09-21 09:54 | Progress Note ---
Assessment and Plan Assessment and plan: 52-year-old male presents to the emergency department with complaint of shortness of breath and some midsternal right-sided chest discomfort with inspiration that started earlier this afternoon and radiates towards the back. The patient was just discharged from the [facility] a few days ago after treated for bilateral pneumonia. He is on Bactrim and just finished a course of antifungal medication for oral thrush. He does not smoke or use illicit drugs. His physicians are through the [facility]. Patient was recently discharged from a 6 day hospital stay at the [facility]. He denies any leg swelling, nausea, vomiting or fever. Septic shock due to underlying pneumonia E. coli septicemia: unknown source ? Pneumonia ? UTI (UCx negative) ? GI -Blood cultures 09/01 positive 4 of 4 bottles. E coli sens to cefepime/zosyn -Repeat Blood cultures 09/04 negative. -TTE 09/02 no vegetations. - Patient is off pressors - Resolved Orophyrangeal Dysphagia with Dysphonia - ENT consult for aphonia- PENDING - Failed swallow eval. NGT placed, May need Pegtube if no improvement Thrush -Fluconazole iv Pneumonia bacteria - Ramón neg rods, Gram Negative bacteremia -Patient is on Bactrim and azithromycin for prophylaxis Acute hypoxemic respiratory failure intubated 09/01/17, on MV >96 hours, extubated on 09/16 17 - Saturating well off oxygen Hyperkalemia - corrected Anemia of chronic disease - Will follow closely - Gi evaluated him Hypernatremia -CHANGE TO D5W AND MONITOR multiple liver masses suspicious for metastatic disease - GI consulted and said it is likely hemangioma Portal vein thrombosis? not clearly seen on US, will need dedicated study when clinically more stable HIV- ID following Metabolic Encephalopathy -possible underlying Delirium -Restriants re-applied for patient safety DVT GI prophylaxis with Lovenox and Pepcid AWAITING CALL BACK FROM [place], FOR INSURANCE REQUESTED TRANSFER. CALLED THE TRANSFER LINE [phone] CODY DONIS AND SPOKE WITH ZO TODAY, SHE INFORMS ME CASE MANAGEMENT IS WORKING ON IT. INFORMED PATIENT AND FAMILY History Interval history: Patient seen and examined, resting comfortably but very lethargic, vocalization is soft and hard to understand, although at times improved. Still with intermittent confusion and per nursing staff attempting to get out of bed. Hospitalist Physical - Physical exam Narrative exam: VITAL SIGNS: Reviewed. GENERAL: The patient appeared cachectic and malnurished appearing. Vital signs as documented. HEAD: No signs of head trauma. EYES: Pupils are equal. EARS: hearing is intact MOUTH: no acute abnormality noted, no stridor NECK: No adenopathy, no JVD. CHEST: Chest with diminished breath sounds bilaterally. No wheezes, rales, or rhonchi. CARDIAC: Regular rate and rhythm. S1 and S2, without murmurs, gallops, or rubs. VASCULAR: Trace Edema. Peripheral pulses normal and equal in all extremities. ABDOMEN: Soft, scalfod without detectable tenderness. No sign of distention. No rebound or guarding, and no masses palpated. Bowel Sounds normal. MUSCULOSKELETAL: Good range of motion of all major joints. Extremities without clubbing, cyanosis or edema. NEUROLOGIC EXAM: aaox3 very lathergic PSYCHIATRIC: mood anxious SKIN: No rash or lesions. on restraints for safety - Constitutional Vitals: Temp Pulse Resp BP Pulse Ox 97.3 F L 91 H 16 102/68 100 09/21/17 07:35 09/21/17 07:35 09/21/17 07:35 09/21/17 07:35 09/21/17 07:35 General appearance: Present: no acute distress, well-nourished, other (intubated ) Results - Labs CBC & Chem 7: 09/21/17 06:19 09/21/17 06:19 Labs: Laboratory Last Values WBC 8.9 K/mm3 (4.5-11.0) 09/21/17 06:19 RBC 4.27 M/mm3 (3.65-5.03) 09/21/17 06:19 Hgb 12.0 gm/dl (11.8-15.2) 09/21/17 06:19 Hct 38.0 % (35.5-45.6) 09/21/17 06:19 MCV 89 fl (84-94) 09/21/17 06:19 MCH 28 pg (28-32) 09/21/17 06:19 MCHC 32 % (32-34) 09/21/17 06:19 RDW 18.1 % (13.2-15.2) H 09/21/17 06:19 Plt Count 316 K/mm3 (140-440) 09/21/17 06:19 Lymph % (Auto) 12.9 % (13.4-35.0) L 09/16/17 06:51 [place] % (Auto) 9.6 % (0.0-7.3) H 09/16/17 06:51 Eos % (Auto) 1.6 % (0.0-4.3) 09/16/17 06:51 Baso % (Auto) 0.2 % (0.0-1.8) 09/16/17 06:51 Lymph # 1.0 K/mm3 (1.2-5.4) L 09/16/17 06:51 Yell # 0.8 K/mm3 (0.0-0.8) 09/16/17 06:51 Eos # 0.1 K/mm3 (0.0-0.4) 09/16/17 06:51 Baso # 0.0 K/mm3 (0.0-0.1) 09/16/17 06:51 Add Manual Diff Complete 09/11/17 06:00 Total Counted 100 09/11/17 06:00 Seg Neutrophils % 75.7 % (40.0-70.0) H 09/16/17 06:51 Seg Neuts % (Manual) 99.0 % (40.0-70.0) H 09/11/17 06:00 Band Neutrophils % 0 % 09/11/17 06:00 Lymphocytes % (Manual) 0 % (13.4-35.0) L 09/11/17 06:00 Reactive Lymphs % (Man) 0 % 09/11/17 06:00 Monocytes % (Manual) 1.0 % (0.0-7.3) 09/11/17 06:00 Eosinophils % (Manual) 0 % (0.0-4.3) 09/11/17 06:00 Basophils % (Manual) 0 % (0.0-1.8) 09/11/17 06:00 Metamyelocytes % 0 % 09/11/17 06:00 Myelocytes % 0 % 09/11/17 06:00 Promyelocytes % 0 % 09/11/17 06:00 Blast Cells % 0 % 09/11/17 06:00 Nucleated RBC % Not Reportable 09/11/17 06:00 Seg Neutrophils # 6.2 K/mm3 (1.8-7.7) 09/16/17 06:51 Seg Neutrophils # Man 15.7 K/mm3 (1.8-7.7) H 09/11/17 06:00 Band Neutrophils # 0.0 K/mm3 09/11/17 06:00 Abs Lymphs (Manual) 1470 cells/uL (850-3900) 09/05/17 14:30 Lymphocytes # (Manual) 0.0 K/mm3 (1.2-5.4) L 09/11/17 06:00 Abs React Lymphs (Man) 0.0 K/mm3 09/11/17 06:00 Monocytes # (Manual) 0.2 K/mm3 (0.0-0.8) 09/11/17 06:00 Eosinophils # (Manual) 0.0 K/mm3 (0.0-0.4) 09/11/17 06:00 Basophils # (Manual) 0.0 K/mm3 (0.0-0.1) 09/11/17 06:00 Metamyelocytes # 0.0 K/mm3 09/11/17 06:00 Myelocytes # 0.0 K/mm3 09/11/17 06:00 Promyelocytes # 0.0 K/mm3 09/11/17 06:00 Blast Cells # 0.0 K/mm3 09/11/17 06:00 WBC Morphology Not Reportable 09/11/17 06:00 Hypersegmented Neuts Not Reportable 09/11/17 06:00 Hyposegmented Neuts Not Reportable 09/11/17 06:00 Hypogranular Neuts Not Reportable 09/11/17 06:00 Smudge Cells Not Reportable 09/11/17 06:00 Toxic Granulation Not Reportable 09/11/17 06:00 Toxic Vacuolation Not Reportable 09/11/17 06:00 Dohle Bodies Not Reportable 09/11/17 06:00 Pelger-Huet Anomaly Not Reportable 09/11/17 06:00 Efren Rods Not Reportable 09/11/17 06:00 Platelet Estimate Cons 09/11/17 06:00 Clumped Platelets Not Reportable 09/11/17 06:00 Plt Clumps, EDTA Not Reportable 09/11/17 06:00 Large Platelets Few 09/11/17 06:00 Giant Platelets Not Reportable 09/11/17 06:00 Platelet Satelliting Not Reportable 09/11/17 06:00 Plt Morphology Comment Not Reportable 09/11/17 06:00 RBC Morphology Not Reportable 09/11/17 06:00 Dimorphic RBCs Not Reportable 09/11/17 06:00 Polychromasia Not Reportable 09/11/17 06:00 Hypochromasia Not Reportable 09/11/17 06:00 Poikilocytosis Not Reportable 09/11/17 06:00 Anisocytosis 1+ 09/11/17 06:00 Microcytosis Not Reportable 09/11/17 06:00 Macrocytosis Not Reportable 09/11/17 06:00 Spherocytes Not Reportable 09/11/17 06:00 Pappenheimer Bodies Not Reportable 09/11/17 06:00 Sickle Cells Not Reportable 09/11/17 06:00 Target Cells Not Reportable 09/11/17 06:00 Tear Drop Cells Not Reportable 09/11/17 06:00 Ovalocytes Not Reportable 09/11/17 06:00 Helmet Cells Not Reportable 09/11/17 06:00 [place] Bodies Not Reportable 09/11/17 06:00 [place] Rings Not Reportable 09/11/17 06:00 [place] Cells Not Reportable 09/11/17 06:00 Bite Cells Not Reportable 09/11/17 06:00 Crenated Cell Not Reportable 09/11/17 06:00 Elliptocytes Not Reportable 09/11/17 06:00 Acanthocytes (Spur) Not Reportable 09/11/17 06:00 Rouleaux Not Reportable 09/11/17 06:00 Hemoglobin C Crystals Not Reportable 09/11/17 06:00 Schistocytes Not Reportable 09/11/17 06:00 Malaria parasites Not Reportable 09/11/17 06:00 Scott Bodies Not Reportable 09/11/17 06:00 Hem Pathologist Commnt No 09/11/17 06:00 PT 14.7 Sec. (12.2-14.9) 09/12/17 10:29 INR 1.09 (0.87-1.13) 09/12/17 10:29 APTT 26.2 Sec. (24.2-36.6) 09/12/17 10:29 Fibrinogen 611 mg/dl (211-480) H 09/04/17 17:23 D-Dimer 976.43 ng/mlDDU (0-234) H 09/01/17 23:27 POC ABG pH 7.415 (7.35-7.45) 09/14/17 06:14 POC ABG pCO2 52.0 (35-45) H 09/14/17 06:14 POC ABG pO2 85 (80-105) 09/14/17 06:14 POC ABG HCO3 33.3 09/14/17 06:14 POC ABG Total CO2 35 09/14/17 06:14 POC ABG O2 Sat 96 09/14/17 06:14 POC ABG Base Excess 9 09/14/17 06:14 FiO2 30 % 09/14/17 06:14 Sodium 150 mmol/L (137-145) H 09/21/17 06:19 Potassium 4.0 mmol/L (3.6-5.0) 09/21/17 06:19 Chloride 111.4 mmol/L (98-107) H 09/21/17 06:19 Carbon Dioxide 24 mmol/L (22-30) 09/21/17 06:19 Anion Gap 19 mmol/L 09/21/17 06:19 BUN 59 mg/dL (9-20) H 09/21/17 06:19 Creatinine 1.4 mg/dL (0.8-1.5) 09/21/17 06:19 Estimated GFR > 60 ml/min 09/21/17 06:19 BUN/Creatinine Ratio 42 % 09/21/17 06:19 Glucose 110 mg/dL (75-100) H 09/21/17 06:19 POC Glucose 94 (70-105) 09/21/17 05:15 Lactic Acid 2.90 mmol/L (0.7-2.0) H* 09/06/17 08:03 Calcium 11.0 mg/dL (8.4-10.2) H 09/21/17 06:19 Phosphorus 2.50 mg/dL (2.5-4.5) 09/13/17 09:24 Magnesium 2.00 mg/dL (1.7-2.3) 09/13/17 09:24 Total Bilirubin 0.50 mg/dL (0.1-1.2) 09/15/17 09:50 AST 79 units/L (5-40) H 09/15/17 09:50 ALT 134 units/L (7-56) H 09/15/17 09:50 Alkaline Phosphatase 83 units/L (35-129) 09/15/17 09:50 Lactate Dehydrogenase 571 units/L (91-180) H 09/05/17 10:55 Troponin T < 0.010 ng/mL (0.00-0.029) 09/01/17 23:27 C-Reactive Protein 1.60 mg/dL (0.00-1.30) H 09/12/17 21:44 NT-Pro-B Natriuret Pep 4222 pg/mL (0-900) H 09/15/17 09:50 Total Protein 7.4 g/dL (6.3-8.2) 09/15/17 09:50 Albumin 2.1 g/dL (3.9-5) L 09/15/17 09:50 Albumin/Globulin Ratio 0.4 % 09/15/17 09:50 Lipase 12 units/L (13-60) L 09/04/17 17:23 Total Cortisol 14.0 mcg/dL () 09/17/17 10:25 Vancomycin Trough 22.0 ug/mL (5.0-20.0) H 09/14/17 12:00 Lymph Enumerat CD4/CD8 0.10 (0.86-5.00) L 09/05/17 14:30 % CD3 Cells 75 % (57-85) 09/05/17 14:30 Absolute CD3 Count 1105 cells/uL (840-3060) 09/05/17 14:30 % CD4 Cells 7 % (30-61) L 09/05/17 14:30 Absolute CD4 Count 101 cells/uL (490-1740) L 09/05/17 14:30 % CD8 Cells 66 % (12-42) H 09/05/17 14:30 Absolute CD8 Count 986 cells/uL (180-1170) 09/05/17 14:30 % CD19 Cells 4 % (6-29) L 09/05/17 14:30 Absolute CD19 Count 60 cells/uL (110-660) L 09/05/17 14:30 HLA-B*[id number] See scanned result 02/20/18 14:30 RPR Nonreactive (Nonreactive) 09/07/17 04:13 Hepatitis A IgM Ab Non-reactive (NonReactive) 09/05/17 10:55 Hep Bs Antigen Reactive (Negative) 09/05/17 10:55 Hep Bs Antibody, Quant <5 mIU/mL (>=10) L 09/07/17 04:13 Hep B Core Total Ab Reactive (Nonreactive) H 09/07/17 04:13 Hep B Core IgM Ab Non-reactive (NonReactive) 09/05/17 10:55 Hepatitis Be Antibody Nonreactive 09/07/17 04:13 Hepatitis Be Antigen Reactive H 09/07/17 04:13 Hepatitis C Antibody Non-reactive (NonReactive) 09/05/17 10:55 HIV-1 Antibody See scanned result 09/03/17 07:40 HIV-1 RNA PCR copies/ml 1750 Copies/mL H 09/05/17 14:30 HIV-1 RNA (PCR) log 3.24 Log cps/mL H 09/05/17 14:30 HIV-1 Genotyping see below 09/05/17 14:30 HIV-2 Ab (Immunoblot) See scanned result 09/03/17 07:40 HIV 1&2 Antibody Rapid Reactive (Non React) 09/02/17 19:34 HIV P24 Antigen Non react (Non React) 09/02/17 19:34 Urine Legionella Ag Not detected (Not Detected) 09/02/17 13:55 TB (QFT) Gold In Tube Negative (Negative) 09/05/17 14:30 TB Test (QFT) Nil 0.04 IU/mL 09/05/17 14:30 TB Test Mitogen - Nil 2.28 IU/mL 09/05/17 14:30 TB Test Antigen - Nil 0.00 IU/mL 09/05/17 14:30 Miscellaneous Test Flexitest 1 09/06/17 11:30 Result Reviewed By See scanned result 09/05/17 14:30
[2017-09-21] MEDS: LOVENOX SUB-Q SCH (12:06)
[2017-09-21] MEDS: DIFLUCAN 200 MG/100 ML BAG IV SCH (12:23)
[2017-09-21] MEDS: NYSTATIN PO SCH ×2 (12:30→22:02)
[2017-09-21] MEDS: LASIX IV SCH (12:31)
[2017-09-21] MEDS: COREG PO SCH ×2 (12:32→22:03)
[2017-09-21] MEDS: BACTRIM DS PO SCH ×2 (12:33→17:23)
[2017-09-21] MEDS: PEPCID PO SCH ×3 (12:33→22:02)
[2017-09-21] MEDS: PROVENTIL IH SCH ×2 (14:37→16:29)
[2017-09-21] MEDS ORDERED: SIMPLE SYRUP FEEDTUBE PRN ×6 (14:57→16:04)
[2017-09-21] MEDS ORDERED: SODIUM BICARBONATE FEEDTUBE PRN ×3 (14:57→16:04)
[2017-09-21] MEDS ORDERED: PANCREAZE DR 10,500 UNIT FEEDTUBE PRN ×3 (14:57→16:08)
[2017-09-22] MEDS: PROVENTIL IH SCH ×2 (00:10→07:55)
[2017-09-22] MEDS: HumaLOG SUB-Q SCH ×4 (01:00→19:58)
[2017-09-22] MEDS: D5W 1,000 ML IV SCH ×2 (05:23→21:11)
[2017-09-22 06:01] LABS: Hematocrit 33.8 % (35.5-45.6); Hemoglobin 10.8 gm/dl (11.8-15.2); Mean Corpuscular HGB Conc 32 % (32-34); Mean Corpuscular Hemoglobin 28 pg (28-32); Mean Corpuscular Volume 88 fl (84-94); Platelet Count 276 K/mm3 (140-440); Red Blood Count 3.87 M/mm3 (3.65-5.03); Red Cell Distribution Width 17.8 % (13.2-15.2)
[2017-09-22 06:25] LABS: BUN/Creatinine Ratio 34; Blood Urea Nitrogen 44 mg/dL (9-20); Calcium 10.4 mg/dL (8.4-10.2); Hemolysis Index 1
--- NOTE | 2017-09-22 11:33 | Progress Note ---
Assessment and Plan Assessment and plan: 52-year-old male presents to the emergency department with complaint of shortness of breath and some midsternal right-sided chest discomfort with inspiration that started earlier this afternoon and radiates towards the back. The patient was just discharged from the [facility] a few days ago after treated for bilateral pneumonia. He is on Bactrim and just finished a course of antifungal medication for oral thrush. He does not smoke or use illicit drugs. His physicians are through the [place] [facility]. Patient was recently discharged from a 6 day hospital stay at the [facility]. He denies any leg swelling, nausea, vomiting or fever. Septic shock due to underlying pneumonia E. coli septicemia: unknown source ? Pneumonia ? UTI (UCx negative) ? GI -Blood cultures 09/01 positive 4 of 4 bottles. E coli sens to cefepime/zosyn -Repeat Blood cultures 09/04 negative. -TTE 09/02 no vegetations. - Patient is off pressors - Resolved Orophyrangeal Dysphagia - Dysphonia resolved - ENT consult PENDING - Failed swallow eval. -Request GI consult for PEG PLACEMENT Thrush -Fluconazole iv x 3 days will dicontinue Pneumonia bacteria - Ecoli -Patient is on Bactrim and azithromycin for prophylaxis Acute hypoxemic respiratory failure intubated 09/01/17, on MV >96 hours, extubated on 09/16 17 - Saturating well off oxygen Hyperkalemia - corrected Anemia of chronic disease - Will follow closely - Gi evaluated him- plan for peg this or monday Hypernatremia -CHANGE TO D5W AND MONITOR multiple liver masses suspicious for metastatic disease - GI consulted and said it is likely hemangioma Portal vein thrombosis? not clearly seen on US, will need dedicated study when clinically more stable HIV- ID following Metabolic Encephalopathy -possible underlying Delirium -Restriants re-applied for patient safety -Discharge to SNF following PEG PLACEMENT Disability -PT/OT eval and treat DVT GI prophylaxis with Lovenox and Pepcid AWAITING CALL BACK FROM [place], FOR INSURANCE REQUESTED TRANSFER. CALLED THE TRANSFER LINE [phone] CODY DONIS AND SPOKE WITH ZO , SHE INFORMS ME CASE MANAGEMENT IS WORKING ON IT. INFORMED PATIENT AND FAMILY History Interval history: Patient seen and examined, resting comfortably but very lethargic, improved vocalization although at times improved. Still with intermittent confusion and per nursing staff attempting to get out of bed. Hospitalist Physical - Physical exam Narrative exam: VITAL SIGNS: Reviewed. GENERAL: The patient appeared cachectic and malnurished appearing. Vital signs as documented. HEAD: No signs of head trauma. EYES: Pupils are equal. EARS: hearing is intact MOUTH: no acute abnormality noted, no stridor NECK: No adenopathy, no JVD. CHEST: Chest with diminished breath sounds bilaterally. No wheezes, rales, or rhonchi. CARDIAC: Regular rate and rhythm. S1 and S2, without murmurs, gallops, or rubs. VASCULAR: Trace Edema. Peripheral pulses normal and equal in all extremities. ABDOMEN: Soft, scalfod without detectable tenderness. No sign of distention. No rebound or guarding, and no masses palpated. Bowel Sounds normal. MUSCULOSKELETAL: Good range of motion of all major joints. Extremities without clubbing, cyanosis or edema. NEUROLOGIC EXAM: aaox3 very lathergic PSYCHIATRIC: mood anxious SKIN: No rash or lesions. - Constitutional Vitals: Temp Pulse Resp BP Pulse Ox 97.9 F 95 H 20 97/70 100 09/22/17 07:48 09/22/17 08:05 09/22/17 08:05 09/22/17 07:48 09/22/17 07:55 General appearance: Present: no acute distress, well-nourished, other (intubated ) Results - Labs CBC & Chem 7: 09/22/17 04:51 09/22/17 04:51 Labs: Laboratory Last Values WBC 9.6 K/mm3 (4.5-11.0) 09/22/17 04:51 RBC 3.87 M/mm3 (3.65-5.03) 09/22/17 04:51 Hgb 10.8 gm/dl (11.8-15.2) L 09/22/17 04:51 Hct 33.8 % (35.5-45.6) L 09/22/17 04:51 MCV 88 fl (84-94) 09/22/17 04:51 MCH 28 pg (28-32) 09/22/17 04:51 MCHC 32 % (32-34) 09/22/17 04:51 RDW 17.8 % (13.2-15.2) H 09/22/17 04:51 Plt Count 276 K/mm3 (140-440) 09/22/17 04:51 Lymph % (Auto) 12.9 % (13.4-35.0) L 09/16/17 06:51 [place] % (Auto) 9.6 % (0.0-7.3) H 09/16/17 06:51 Eos % (Auto) 1.6 % (0.0-4.3) 09/16/17 06:51 Baso % (Auto) 0.2 % (0.0-1.8) 09/16/17 06:51 Lymph # 1.0 K/mm3 (1.2-5.4) L 09/16/17 06:51 [place] # 0.8 K/mm3 (0.0-0.8) 09/16/17 06:51 Eos # 0.1 K/mm3 (0.0-0.4) 09/16/17 06:51 Baso # 0.0 K/mm3 (0.0-0.1) 09/16/17 06:51 Add Manual Diff Complete 09/11/17 06:00 Total Counted 100 09/11/17 06:00 Seg Neutrophils % 75.7 % (40.0-70.0) H 09/16/17 06:51 Seg Neuts % (Manual) 99.0 % (40.0-70.0) H 09/11/17 06:00 Band Neutrophils % 0 % 09/11/17 06:00 Lymphocytes % (Manual) 0 % (13.4-35.0) L 09/11/17 06:00 Reactive Lymphs % (Man) 0 % 09/11/17 06:00 Monocytes % (Manual) 1.0 % (0.0-7.3) 09/11/17 06:00 Eosinophils % (Manual) 0 % (0.0-4.3) 09/11/17 06:00 Basophils % (Manual) 0 % (0.0-1.8) 09/11/17 06:00 Metamyelocytes % 0 % 09/11/17 06:00 Myelocytes % 0 % 09/11/17 06:00 Promyelocytes % 0 % 09/11/17 06:00 Blast Cells % 0 % 09/11/17 06:00 Nucleated RBC % Not Reportable 09/11/17 06:00 Seg Neutrophils # 6.2 K/mm3 (1.8-7.7) 09/16/17 06:51 Seg Neutrophils # Man 15.7 K/mm3 (1.8-7.7) H 09/11/17 06:00 Band Neutrophils # 0.0 K/mm3 09/11/17 06:00 Abs Lymphs (Manual) 1470 cells/uL (850-3900) 09/05/17 14:30 Lymphocytes # (Manual) 0.0 K/mm3 (1.2-5.4) L 09/11/17 06:00 Abs React Lymphs (Man) 0.0 K/mm3 09/11/17 06:00 Monocytes # (Manual) 0.2 K/mm3 (0.0-0.8) 09/11/17 06:00 Eosinophils # (Manual) 0.0 K/mm3 (0.0-0.4) 09/11/17 06:00 Basophils # (Manual) 0.0 K/mm3 (0.0-0.1) 09/11/17 06:00 Metamyelocytes # 0.0 K/mm3 09/11/17 06:00 Myelocytes # 0.0 K/mm3 09/11/17 06:00 Promyelocytes # 0.0 K/mm3 09/11/17 06:00 Blast Cells # 0.0 K/mm3 09/11/17 06:00 WBC Morphology Not Reportable 09/11/17 06:00 Hypersegmented Neuts Not Reportable 09/11/17 06:00 Hyposegmented Neuts Not Reportable 09/11/17 06:00 Hypogranular Neuts Not Reportable 09/11/17 06:00 Smudge Cells Not Reportable 09/11/17 06:00 Toxic Granulation Not Reportable 09/11/17 06:00 Toxic Vacuolation Not Reportable 09/11/17 06:00 Dohle Bodies Not Reportable 09/11/17 06:00 Pelger-Huet Anomaly Not Reportable 09/11/17 06:00 Efren Rods Not Reportable 09/11/17 06:00 Platelet Estimate Cons 09/11/17 06:00 Clumped Platelets Not Reportable 09/11/17 06:00 Plt Clumps, EDTA Not Reportable 09/11/17 06:00 Large Platelets Few 09/11/17 06:00 Giant Platelets Not Reportable 09/11/17 06:00 Platelet Satelliting Not Reportable 09/11/17 06:00 Plt Morphology Comment Not Reportable 09/11/17 06:00 RBC Morphology Not Reportable 09/11/17 06:00 Dimorphic RBCs Not Reportable 09/11/17 06:00 Polychromasia Not Reportable 09/11/17 06:00 Hypochromasia Not Reportable 09/11/17 06:00 Poikilocytosis Not Reportable 09/11/17 06:00 Anisocytosis 1+ 09/11/17 06:00 Microcytosis Not Reportable 09/11/17 06:00 Macrocytosis Not Reportable 09/11/17 06:00 Spherocytes Not Reportable 09/11/17 06:00 Pappenheimer Bodies Not Reportable 09/11/17 06:00 Sickle Cells Not Reportable 09/11/17 06:00 Target Cells Not Reportable 09/11/17 06:00 Tear Drop Cells Not Reportable 09/11/17 06:00 Ovalocytes Not Reportable 09/11/17 06:00 Helmet Cells Not Reportable 09/11/17 06:00 [place] Bodies Not Reportable 09/11/17 06:00 [place] Rings Not Reportable 09/11/17 06:00 [place] Cells Not Reportable 09/11/17 06:00 Bite Cells Not Reportable 09/11/17 06:00 Crenated Cell Not Reportable 09/11/17 06:00 Elliptocytes Not Reportable 09/11/17 06:00 Acanthocytes (Spur) Not Reportable 09/11/17 06:00 Rouleaux Not Reportable 09/11/17 06:00 Hemoglobin C Crystals Not Reportable 09/11/17 06:00 Schistocytes Not Reportable 09/11/17 06:00 Malaria parasites Not Reportable 09/11/17 06:00 Scott Bodies Not Reportable 09/11/17 06:00 Hem Pathologist Commnt No 09/11/17 06:00 PT 14.7 Sec. (12.2-14.9) 09/12/17 10:29 INR 1.09 (0.87-1.13) 09/12/17 10:29 APTT 26.2 Sec. (24.2-36.6) 09/12/17 10:29 Fibrinogen 611 mg/dl (211-480) H 09/04/17 17:23 D-Dimer 976.43 ng/mlDDU (0-234) H 09/01/17 23:27 POC ABG pH 7.415 (7.35-7.45) 09/14/17 06:14 POC ABG pCO2 52.0 (35-45) H 09/14/17 06:14 POC ABG pO2 85 (80-105) 09/14/17 06:14 POC ABG HCO3 33.3 09/14/17 06:14 POC ABG Total CO2 35 09/14/17 06:14 POC ABG O2 Sat 96 09/14/17 06:14 POC ABG Base Excess 9 09/14/17 06:14 FiO2 30 % 09/14/17 06:14 Sodium 153 mmol/L (137-145) H 09/22/17 04:51 Potassium 3.7 mmol/L (3.6-5.0) 09/22/17 04:51 Chloride 117.3 mmol/L (98-107) H 09/22/17 04:51 Carbon Dioxide 26 mmol/L (22-30) 09/22/17 04:51 Anion Gap 13 mmol/L 09/22/17 04:51 BUN 44 mg/dL (9-20) H 09/22/17 04:51 Creatinine 1.3 mg/dL (0.8-1.5) 09/22/17 04:51 Estimated GFR > 60 ml/min 09/22/17 04:51 BUN/Creatinine Ratio 34 % 09/22/17 04:51 Glucose 117 mg/dL (75-100) H 09/22/17 04:51 POC Glucose 118 (70-105) H 09/22/17 03:49 Lactic Acid 2.90 mmol/L (0.7-2.0) H* 09/06/17 08:03 Calcium 10.4 mg/dL (8.4-10.2) H 09/22/17 04:51 Phosphorus 2.50 mg/dL (2.5-4.5) 09/13/17 09:24 Magnesium 2.00 mg/dL (1.7-2.3) 09/13/17 09:24 Total Bilirubin 0.50 mg/dL (0.1-1.2) 09/15/17 09:50 AST 79 units/L (5-40) H 09/15/17 09:50 ALT 134 units/L (7-56) H 09/15/17 09:50 Alkaline Phosphatase 83 units/L (35-129) 09/15/17 09:50 Lactate Dehydrogenase 571 units/L (91-180) H 09/05/17 10:55 Troponin T < 0.010 ng/mL (0.00-0.029) 09/01/17 23:27 C-Reactive Protein 1.60 mg/dL (0.00-1.30) H 09/12/17 21:44 NT-Pro-B Natriuret Pep 4222 pg/mL (0-900) H 09/15/17 09:50 Total Protein 7.4 g/dL (6.3-8.2) 09/15/17 09:50 Albumin 2.1 g/dL (3.9-5) L 09/15/17 09:50 Albumin/Globulin Ratio 0.4 % 09/15/17 09:50 Lipase 12 units/L (13-60) L 09/04/17 17:23 Total Cortisol 14.0 mcg/dL () 09/17/17 10:25 Vancomycin Trough 22.0 ug/mL (5.0-20.0) H 09/14/17 12:00 Lymph Enumerat CD4/CD8 0.10 (0.86-5.00) L 09/05/17 14:30 % CD3 Cells 75 % (57-85) 09/05/17 14:30 Absolute CD3 Count 1105 cells/uL (840-3060) 09/05/17 14:30 % CD4 Cells 7 % (30-61) L 09/05/17 14:30 Absolute CD4 Count 101 cells/uL (490-1740) L 09/05/17 14:30 % CD8 Cells 66 % (12-42) H 09/05/17 14:30 Absolute CD8 Count 986 cells/uL (180-1170) 09/05/17 14:30 % CD19 Cells 4 % (6-29) L 09/05/17 14:30 Absolute CD19 Count 60 cells/uL (110-660) L 09/05/17 14:30 HLA-B*5701 See scanned result 09/05/17 14:30 RPR Nonreactive (Nonreactive) 09/07/17 04:13 Hepatitis A IgM Ab Non-reactive (NonReactive) 09/05/17 10:55 Hep Bs Antigen Reactive (Negative) 09/05/17 10:55 Hep Bs Antibody, Quant <5 mIU/mL (>=10) L 09/07/17 04:13 Hep B Core Total Ab Reactive (Nonreactive) H 09/07/17 04:13 Hep B Core IgM Ab Non-reactive (NonReactive) 09/05/17 10:55 Hepatitis Be Antibody Nonreactive 09/07/17 04:13 Hepatitis Be Antigen Reactive H 09/07/17 04:13 Hepatitis C Antibody Non-reactive (NonReactive) 09/05/17 10:55 HIV-1 Antibody See scanned result 09/03/17 07:40 HIV-1 RNA PCR copies/ml 1750 Copies/mL H 09/05/17 14:30 HIV-1 RNA (PCR) log 3.24 Log cps/mL H 09/05/17 14:30 HIV-1 Genotyping see below 09/05/17 14:30 HIV-2 Ab (Immunoblot) See scanned result 09/03/17 07:40 HIV 1&2 Antibody Rapid Reactive (Non React) 09/02/17 19:34 HIV P24 Antigen Non react (Non React) 09/02/17 19:34 Urine Legionella Ag Not detected (Not Detected) 09/02/17 13:55 TB (QFT) Gold In Tube Negative (Negative) 09/05/17 14:30 TB Test (QFT) Nil 0.04 IU/mL 09/05/17 14:30 TB Test Mitogen - Nil 2.28 IU/mL 09/05/17 14:30 TB Test Antigen - Nil 0.00 IU/mL 09/05/17 14:30 Miscellaneous Test Flexitest 1 09/06/17 11:30 Result Reviewed By See scanned result 09/05/17 14:30
[2017-09-22] MEDS: NYSTATIN PO SCH ×4 (11:44→21:04)
[2017-09-22] MEDS: BACTRIM DS PO SCH (11:45)
[2017-09-22] MEDS: PEPCID PO SCH ×2 (11:46→21:09)
[2017-09-22] MEDS: LOVENOX SUB-Q SCH (11:46)
[2017-09-22] MEDS: PROVENTIL IH PRN (15:36)
[2017-09-22] MEDS: COREG PO SCH ×2 (16:21→21:10)
[2017-09-22] MEDS: LASIX IV SCH (16:21)
--- NOTE | 2017-09-22 16:26 | Gastroenterology Progress Note ---
Assessment and Plan GI: pt admitted w/ sepsis and encephalopathy now improving, failed swallow eval - pt still improving - probable PEG placement this or Monday - no changes at this time, will follow Subjective Date of service: 09/22/17 Principal diagnosis: Septic shock, acute hypoxemic respiratory failure, [place] Interval history: - no specific GI complaints overnight Objective - Constitutional Vitals: Temp Pulse Resp BP Pulse Ox 97.8 F 98 H 20 93/69 99 09/22/17 15:28 09/22/17 16:21 09/22/17 15:46 09/22/17 16:21 09/22/17 15:28 General appearance: no acute distress - EENT Eyes: PERRL - Respiratory Respiratory: bilateral: CTA - Cardiovascular Rhythm: regular Heart Sounds: Present: S1 & S2 - Gastrointestinal General gastrointestinal: Present: soft, non-tender, non-distended - Labs CBC & Chem 7: 09/22/17 04:51 09/22/17 04:51 Labs: Laboratory Results - last 24 hr 09/21/17 09/22/17 09/22/17 16:55 00:59 03:49 WBC RBC Hgb Hct MCV MCH MCHC RDW Plt Count Sodium Potassium Chloride Carbon Dioxide Anion Gap BUN Creatinine Estimated GFR BUN/Creatinine Ratio Glucose POC Glucose 160 H 100 118 H Calcium 09/22/17 09/22/17 04:51 04:51 WBC 9.6 RBC 3.87 Hgb 10.8 L Hct 33.8 L MCV 88 MCH 28 MCHC 32 RDW 17.8 H Plt Count 276 Sodium 153 H Potassium 3.7 Chloride 117.3 H Carbon Dioxide 26 Anion Gap 13 BUN 44 H Creatinine 1.3 Estimated GFR > 60 BUN/Creatinine Ratio 34 Glucose 117 H POC Glucose Calcium 10.4 H
[2017-09-22] MEDS ORDERED: SODIUM BICARBONATE FEEDTUBE PRN (17:18)
[2017-09-22] MEDS ORDERED: PANCREAZE DR 10,500 UNIT FEEDTUBE PRN (17:18)
[2017-09-22] MEDS ORDERED: SIMPLE SYRUP FEEDTUBE PRN ×2 (17:18)
[2017-09-22] MEDS: DIFLUCAN 200 MG/100 ML BAG IV SCH (21:00)
[2017-09-23] MEDS: HumaLOG SUB-Q SCH ×4 (00:33→18:10)
--- NOTE | 2017-09-23 11:31 | Progress Note ---
Assessment and Plan Assessment and plan: 52-year-old male presents to the emergency department with complaint of shortness of breath and some midsternal right-sided chest discomfort with inspiration that started earlier this afternoon and radiates towards the back. The patient was just discharged from the [facility] a few days ago after treated for bilateral pneumonia. He is on Bactrim and just finished a course of antifungal medication for oral thrush. He does not smoke or use illicit drugs. His physicians are through the [facility]. Patient was recently discharged from a 6 day hospital stay at the [facility]. He denies any leg swelling, nausea, vomiting or fever. Septic shock due to underlying pneumonia E. coli septicemia: unknown source ? Pneumonia ? UTI (UCx negative) ? GI -Blood cultures 09/01 positive 4 of 4 bottles. E coli sens to cefepime/zosyn -Repeat Blood cultures 09/04 negative. -TTE 09/02 no vegetations. - Patient is off pressors - Resolved Orophyrangeal Dysphagia - Dysphonia resolved - ENT consult PENDING - Failed swallow eval. -Request GI consult for PEG PLACEMENT Thrush -Fluconazole iv x 3 days will discontinue Pneumonia bacteria - Ecoli -Patient is on Bactrim and azithromycin for prophylaxis Acute hypoxemic respiratory failure intubated 09/01/17, on MV >96 hours, extubated on 09/16 17 - Saturating well off oxygen Hyperkalemia - corrected Anemia of chronic disease - Will follow closely - Gi evaluated him- plan for peg this or monday Hypernatremia -CHANGE TO D5W AND MONITOR multiple liver masses suspicious for metastatic disease - GI consulted and said it is likely hemangioma Portal vein thrombosis? not clearly seen on US, will need dedicated study when clinically more stable HIV- ID following Metabolic Encephalopathy -possible underlying Delirium -Restraints re-applied for patient safety -Discharge to SNF following PEG PLACEMENT Disability -PT/OT eval and treat DVT GI prophylaxis with Lovenox and Pepcid AWAITING CALL BACK FROM [facility], FOR INSURANCE REQUESTED TRANSFER. CALLED THE TRANSFER LINE [phone] [facility] AND SPOKE WITH ZO , SHE INFORMS ME CASE MANAGEMENT IS WORKING ON IT. INFORMED PATIENT AND FAMILY History Interval history: Patient seen and examined, resting comfortably but very lethargic, improved vocalization although at times improved. Still with intermittent confusion and per nursing staff attempting to get out of bed. Hospitalist Physical - Physical exam Narrative exam: VITAL SIGNS: Reviewed. GENERAL: The patient appeared cachectic and malnurished appearing. Vital signs as documented. HEAD: No signs of head trauma. EYES: Pupils are equal. EARS: hearing is intact MOUTH: no acute abnormality noted, no stridor NECK: No adenopathy, no JVD. CHEST: Chest with diminished breath sounds bilaterally. No wheezes, rales, or rhonchi. CARDIAC: Regular rate and rhythm. S1 and S2, without murmurs, gallops, or rubs. VASCULAR: Trace Edema. Peripheral pulses normal and equal in all extremities. ABDOMEN: Soft, scalfod without detectable tenderness. No sign of distention. No rebound or guarding, and no masses palpated. Bowel Sounds normal. MUSCULOSKELETAL: Good range of motion of all major joints. Extremities without clubbing, cyanosis or edema. NEUROLOGIC EXAM: aaox3 very lathergic. Vocalizing well today PSYCHIATRIC: mood anxious SKIN: No rash or lesions. - Constitutional Vitals: Temp Pulse Resp BP Pulse Ox 98.6 F 76 20 98/53 100 09/23/17 09:19 09/23/17 09:19 09/23/17 09:19 09/23/17 09:19 09/23/17 09:19 General appearance: Present: no acute distress, well-nourished, other (intubated ) Results - Labs CBC & Chem 7: 09/22/17 04:51 09/22/17 04:51 Labs: Laboratory Last Values WBC 9.6 K/mm3 (4.5-11.0) 09/22/17 04:51 RBC 3.87 M/mm3 (3.65-5.03) 09/22/17 04:51 Hgb 10.8 gm/dl (11.8-15.2) L 09/22/17 04:51 Hct 33.8 % (35.5-45.6) L 09/22/17 04:51 MCV 88 fl (84-94) 09/22/17 04:51 MCH 28 pg (28-32) 09/22/17 04:51 MCHC 32 % (32-34) 09/22/17 04:51 RDW 17.8 % (13.2-15.2) H 09/22/17 04:51 Plt Count 276 K/mm3 (140-440) 09/22/17 04:51 Lymph % (Auto) 12.9 % (13.4-35.0) L 09/16/17 06:51 [place] % (Auto) 9.6 % (0.0-7.3) H 09/16/17 06:51 Eos % (Auto) 1.6 % (0.0-4.3) 09/16/17 06:51 Baso % (Auto) 0.2 % (0.0-1.8) 09/16/17 06:51 Lymph # 1.0 K/mm3 (1.2-5.4) L 09/16/17 06:51 [place] # 0.8 K/mm3 (0.0-0.8) 09/16/17 06:51 Eos # 0.1 K/mm3 (0.0-0.4) 09/16/17 06:51 Baso # 0.0 K/mm3 (0.0-0.1) 09/16/17 06:51 Add Manual Diff Complete 09/11/17 06:00 Total Counted 100 09/11/17 06:00 Seg Neutrophils % 75.7 % (40.0-70.0) H 09/16/17 06:51 Seg Neuts % (Manual) 99.0 % (40.0-70.0) H 09/11/17 06:00 Band Neutrophils % 0 % 09/11/17 06:00 Lymphocytes % (Manual) 0 % (13.4-35.0) L 09/11/17 06:00 Reactive Lymphs % (Man) 0 % 09/11/17 06:00 Monocytes % (Manual) 1.0 % (0.0-7.3) 09/11/17 06:00 Eosinophils % (Manual) 0 % (0.0-4.3) 09/11/17 06:00 Basophils % (Manual) 0 % (0.0-1.8) 09/11/17 06:00 Metamyelocytes % 0 % 09/11/17 06:00 Myelocytes % 0 % 09/11/17 06:00 Promyelocytes % 0 % 09/11/17 06:00 Blast Cells % 0 % 09/11/17 06:00 Nucleated RBC % Not Reportable 09/11/17 06:00 Seg Neutrophils # 6.2 K/mm3 (1.8-7.7) 09/16/17 06:51 Seg Neutrophils # Man 15.7 K/mm3 (1.8-7.7) H 09/11/17 06:00 Band Neutrophils # 0.0 K/mm3 09/11/17 06:00 Abs Lymphs (Manual) 1470 cells/uL (850-3900) 09/05/17 14:30 Lymphocytes # (Manual) 0.0 K/mm3 (1.2-5.4) L 09/11/17 06:00 Abs React Lymphs (Man) 0.0 K/mm3 09/11/17 06:00 Monocytes # (Manual) 0.2 K/mm3 (0.0-0.8) 09/11/17 06:00 Eosinophils # (Manual) 0.0 K/mm3 (0.0-0.4) 09/11/17 06:00 Basophils # (Manual) 0.0 K/mm3 (0.0-0.1) 09/11/17 06:00 Metamyelocytes # 0.0 K/mm3 09/11/17 06:00 Myelocytes # 0.0 K/mm3 09/11/17 06:00 Promyelocytes # 0.0 K/mm3 09/11/17 06:00 Blast Cells # 0.0 K/mm3 09/11/17 06:00 WBC Morphology Not Reportable 09/11/17 06:00 Hypersegmented Neuts Not Reportable 09/11/17 06:00 Hyposegmented Neuts Not Reportable 09/11/17 06:00 Hypogranular Neuts Not Reportable 09/11/17 06:00 Smudge Cells Not Reportable 09/11/17 06:00 Toxic Granulation Not Reportable 09/11/17 06:00 Toxic Vacuolation Not Reportable 09/11/17 06:00 Dohle Bodies Not Reportable 09/11/17 06:00 Pelger-Huet Anomaly Not Reportable 09/11/17 06:00 Efren Rods Not Reportable 09/11/17 06:00 Platelet Estimate Cons 09/11/17 06:00 Clumped Platelets Not Reportable 09/11/17 06:00 Plt Clumps, EDTA Not Reportable 09/11/17 06:00 Large Platelets Few 09/11/17 06:00 Giant Platelets Not Reportable 09/11/17 06:00 Platelet Satelliting Not Reportable 09/11/17 06:00 Plt Morphology Comment Not Reportable 09/11/17 06:00 RBC Morphology Not Reportable 09/11/17 06:00 Dimorphic RBCs Not Reportable 09/11/17 06:00 Polychromasia Not Reportable 09/11/17 06:00 Hypochromasia Not Reportable 09/11/17 06:00 Poikilocytosis Not Reportable 09/11/17 06:00 Anisocytosis 1+ 09/11/17 06:00 Microcytosis Not Reportable 09/11/17 06:00 Macrocytosis Not Reportable 09/11/17 06:00 Spherocytes Not Reportable 09/11/17 06:00 Pappenheimer Bodies Not Reportable 09/11/17 06:00 Sickle Cells Not Reportable 09/11/17 06:00 Target Cells Not Reportable 09/11/17 06:00 Tear Drop Cells Not Reportable 09/11/17 06:00 Ovalocytes Not Reportable 09/11/17 06:00 Helmet Cells Not Reportable 09/11/17 06:00 [place] Bodies Not Reportable 09/11/17 06:00 [place] Rings Not Reportable 09/11/17 06:00 Mayo Cells Not Reportable 09/11/17 06:00 Bite Cells Not Reportable 09/11/17 06:00 Crenated Cell Not Reportable 09/11/17 06:00 Elliptocytes Not Reportable 09/11/17 06:00 Acanthocytes (Spur) Not Reportable 09/11/17 06:00 Rouleaux Not Reportable 09/11/17 06:00 Hemoglobin C Crystals Not Reportable 09/11/17 06:00 Schistocytes Not Reportable 09/11/17 06:00 Malaria parasites Not Reportable 09/11/17 06:00 Scott Bodies Not Reportable 09/11/17 06:00 Hem Pathologist Commnt No 09/11/17 06:00 PT 14.7 Sec. (12.2-14.9) 09/12/17 10:29 INR 1.09 (0.87-1.13) 09/12/17 10:29 APTT 26.2 Sec. (24.2-36.6) 09/12/17 10:29 Fibrinogen 611 mg/dl (211-480) H 09/04/17 17:23 D-Dimer 976.43 ng/mlDDU (0-234) H 09/01/17 23:27 POC ABG pH 7.415 (7.35-7.45) 09/14/17 06:14 POC ABG pCO2 52.0 (35-45) H 09/14/17 06:14 POC ABG pO2 85 (80-105) 09/14/17 06:14 POC ABG HCO3 33.3 09/14/17 06:14 POC ABG Total CO2 35 09/14/17 06:14 POC ABG O2 Sat 96 09/14/17 06:14 POC ABG Base Excess 9 09/14/17 06:14 FiO2 30 % 09/14/17 06:14 Sodium 153 mmol/L (137-145) H 09/22/17 04:51 Potassium 3.7 mmol/L (3.6-5.0) 09/22/17 04:51 Chloride 117.3 mmol/L (98-107) H 09/22/17 04:51 Carbon Dioxide 26 mmol/L (22-30) 09/22/17 04:51 Anion Gap 13 mmol/L 09/22/17 04:51 BUN 44 mg/dL (9-20) H 09/22/17 04:51 Creatinine 1.3 mg/dL (0.8-1.5) 09/22/17 04:51 Estimated GFR > 60 ml/min 09/22/17 04:51 BUN/Creatinine Ratio 34 % 09/22/17 04:51 Glucose 117 mg/dL (75-100) H 09/22/17 04:51 POC Glucose 136 (70-105) H 09/23/17 06:03 Lactic Acid 2.90 mmol/L (0.7-2.0) H* 09/06/17 08:03 Calcium 10.4 mg/dL (8.4-10.2) H 09/22/17 04:51 Phosphorus 2.50 mg/dL (2.5-4.5) 09/13/17 09:24 Magnesium 2.00 mg/dL (1.7-2.3) 09/13/17 09:24 Total Bilirubin 0.50 mg/dL (0.1-1.2) 09/15/17 09:50 AST 79 units/L (5-40) H 09/15/17 09:50 ALT 134 units/L (7-56) H 09/15/17 09:50 Alkaline Phosphatase 83 units/L (35-129) 09/15/17 09:50 Lactate Dehydrogenase 571 units/L (91-180) H 09/05/17 10:55 Troponin T < 0.010 ng/mL (0.00-0.029) 09/01/17 23:27 C-Reactive Protein 1.60 mg/dL (0.00-1.30) H 09/12/17 21:44 NT-Pro-B Natriuret Pep 4222 pg/mL (0-900) H 09/15/17 09:50 Total Protein 7.4 g/dL (6.3-8.2) 09/15/17 09:50 Albumin 2.1 g/dL (3.9-5) L 09/15/17 09:50 Albumin/Globulin Ratio 0.4 % 09/15/17 09:50 Lipase 12 units/L (13-60) L 09/04/17 17:23 Total Cortisol 14.0 mcg/dL () 09/17/17 10:25 Vancomycin Trough 22.0 ug/mL (5.0-20.0) H 09/14/17 12:00 Lymph Enumerat CD4/CD8 0.10 (0.86-5.00) L 09/05/17 14:30 % CD3 Cells 75 % (57-85) 09/05/17 14:30 Absolute CD3 Count 1105 cells/uL (840-3060) 09/05/17 14:30 % CD4 Cells 7 % (30-61) L 09/05/17 14:30 Absolute CD4 Count 101 cells/uL (490-1740) L 09/05/17 14:30 % CD8 Cells 66 % (12-42) H 09/05/17 14:30 Absolute CD8 Count 986 cells/uL (180-1170) 09/05/17 14:30 % CD19 Cells 4 % (6-29) L 09/05/17 14:30 Absolute CD19 Count 60 cells/uL (110-660) L 09/05/17 14:30 HLA-B*[id number] See scanned result 09/05/17 14:30 RPR Nonreactive (Nonreactive) 09/07/17 04:13 Hepatitis A IgM Ab Non-reactive (NonReactive) 09/05/17 10:55 Hep Bs Antigen Reactive (Negative) 09/05/17 10:55 Hep Bs Antibody, Quant <5 mIU/mL (>=10) L 09/07/17 04:13 Hep B Core Total Ab Reactive (Nonreactive) H 09/07/17 04:13 Hep B Core IgM Ab Non-reactive (NonReactive) 09/05/17 10:55 Hepatitis Be Antibody Nonreactive 09/07/17 04:13 Hepatitis Be Antigen Reactive H 09/07/17 04:13 Hepatitis C Antibody Non-reactive (NonReactive) 09/05/17 10:55 HIV-1 Antibody See scanned result 09/03/17 07:40 HIV-1 RNA PCR copies/ml 1750 Copies/mL H 09/05/17 14:30 HIV-1 RNA (PCR) log 3.24 Log cps/mL H 09/05/17 14:30 HIV-1 Genotyping see below 09/05/17 14:30 HIV-2 Ab (Immunoblot) See scanned result 09/03/17 07:40 HIV 1&2 Antibody Rapid Reactive (Non React) 09/02/17 19:34 HIV P24 Antigen Non react (Non React) 09/02/17 19:34 Urine Legionella Ag Not detected (Not Detected) 09/02/17 13:55 TB (QFT) Gold In Tube Negative (Negative) 09/05/17 14:30 TB Test (QFT) Nil 0.04 IU/mL 09/05/17 14:30 TB Test Mitogen - Nil 2.28 IU/mL 09/05/17 14:30 TB Test Antigen - Nil 0.00 IU/mL 09/05/17 14:30 Miscellaneous Test Flexitest 1 09/06/17 11:30 Result Reviewed By See scanned result 09/05/17 14:30
[2017-09-23] MEDS: COREG PO SCH ×2 (11:43→22:00)
[2017-09-23] MEDS: LOVENOX SUB-Q SCH (11:44)
[2017-09-23] MEDS: PEPCID PO SCH ×2 (11:44→21:38)
[2017-09-23] MEDS: LASIX IV SCH (11:44)
[2017-09-23] MEDS: BACTRIM DS PO SCH (11:45)
[2017-09-23] MEDS: NYSTATIN PO SCH ×4 (11:46→21:38)
--- NOTE | 2017-09-23 15:59 | Gastroenterology Progress Note ---
Assessment and Plan - Patient Problems (1) Neurogenic dysphagia Current Visit: Yes Status: Acute Plan to address problem: - The patient remains critically ill, and will likely need a long-term PEG for enteral feeding. Will plan on Monday unless condition changes. - Continue current Dobhoff feedings. Subjective Date of service: 09/23/17 Principal diagnosis: Neurogenic dysphagia Interval history: The patient remains encephalopathic (per RN) and had had to be restrained. Tolerating Dobhoff feeds. No witness N/V/abdominal pain. No melena. Objective - Constitutional Vitals: Temp Pulse Resp BP Pulse Ox 98.2 F 60 18 86/64 100 09/23/17 12:00 09/23/17 12:00 09/23/17 12:00 09/23/17 12:00 09/23/17 10:00 General appearance: no acute distress - Respiratory Respiratory effort: normal Respiratory: bilateral: CTA - Cardiovascular Rhythm: regular Heart Sounds: Present: S1 & S2 - Gastrointestinal General gastrointestinal: Present: soft, non-tender, non-distended - Neurologic Neurological: other (Not responsive to verbal stimuli, but does w/d to pain) - Labs CBC & Chem 7: 09/22/17 04:51 09/23/17 13:53 Labs: Laboratory Results - last 24 hr 09/22/17 09/23/17 09/23/17 11:45 00:20 06:03 Sodium POC Glucose 116 H 116 H 136 H 09/23/17 09/23/17 13:01 13:53 Sodium 144 D POC Glucose 105
[2017-09-23] MEDS: DIFLUCAN 200 MG/100 ML BAG IV SCH (16:54)
[2017-09-23] MEDS: PROVENTIL IH PRN (16:58)
[2017-09-24] MEDS: D5W 1,000 ML IV SCH ×2 (05:47→18:45)
[2017-09-24 08:20] LABS: BUN/Creatinine Ratio 32; Blood Urea Nitrogen 29 mg/dL (9-20); Calcium 9.4 mg/dL (8.4-10.2); Hemolysis Index 102
[2017-09-24] MEDS: LASIX IV SCH (10:42)
[2017-09-24] MEDS: BACTRIM DS PO SCH (10:43)
[2017-09-24] MEDS: ZITHROMAX PO SCH (10:52)
[2017-09-24 11:05] LABS: Hematocrit 31.3 % (35.5-45.6); Hemoglobin 10.3 gm/dl (11.8-15.2); Mean Corpuscular HGB Conc 33 % (32-34); Mean Corpuscular Hemoglobin 28 pg (28-32); Mean Corpuscular Volume 86 fl (84-94); Platelet Count 178 K/mm3 (140-440); Red Blood Count 3.65 M/mm3 (3.65-5.03); Red Cell Distribution Width 18.1 % (13.2-15.2)
[2017-09-24] MEDS: HumaLOG SUB-Q SCH ×4 (11:36→18:34)
--- NOTE | 2017-09-24 11:37 | Gastroenterology Progress Note ---
Assessment and Plan - Patient Problems (1) Neurogenic dysphagia Current Visit: Yes Status: Acute Plan to address problem: - The patient remains critically/chronically ill, and will likely need a long- term PEG for enteral feeding. - Dobhoff feeds off at [place]; PEG tomorrow if labs in AM OK. - I have stopped the patient's lovenox; can restart tomorrow after PEG. - Patient's sister has agreed to procedure and will sign (though the patient appears to understand and verbally agrees as well). Subjective Date of service: 09/24/17 Principal diagnosis: Neurogenic dysphagia Interval history: The patient is seen with his sister. His phonation is soft, but he does not choke on his saliva. He appears to understand the concept of the feeding tube, but asks his sister to decide for him (she agrees). There is no stomach pain, N /V, or chest pain. Objective - Constitutional Vitals: Temp Pulse Resp BP Pulse Ox 98.8 F 89 16 80/53 100 09/24/17 08:20 09/24/17 08:20 09/24/17 08:20 09/24/17 08:20 09/24/17 08:20 General appearance: no acute distress - Respiratory Respiratory effort: normal Respiratory: bilateral: CTA - Cardiovascular Rhythm: regular Heart Sounds: Present: S1 & S2 - Gastrointestinal General gastrointestinal: Present: soft, non-tender, non-distended - Labs CBC & Chem 7: 09/24/17 09:27 09/24/17 06:06 Labs: Laboratory Results - last 24 hr 09/23/17 09/23/17 09/23/17 13:01 13:53 18:40 WBC RBC Hgb Hct MCV MCH MCHC RDW Plt Count Sodium 144 D Potassium Chloride Carbon Dioxide Anion Gap BUN Creatinine Estimated GFR BUN/Creatinine Ratio Glucose POC Glucose 105 128 H Calcium 09/23/17 09/24/17 09/24/17 21:03 06:06 06:33 WBC RBC Hgb Hct MCV MCH MCHC RDW Plt Count Sodium 142 Potassium 5.2 H D Chloride 109.2 H Carbon Dioxide 23 Anion Gap 15 BUN 29 H Creatinine 0.9 Estimated GFR > 60 BUN/Creatinine Ratio 32 Glucose 86 POC Glucose 147 H 113 H Calcium 9.4 09/24/17 09:27 WBC 11.7 H RBC 3.65 Hgb 10.3 L Hct 31.3 L MCV 86 MCH 28 MCHC 33 RDW 18.1 H Plt Count 178 Sodium Potassium Chloride Carbon Dioxide Anion Gap BUN Creatinine Estimated GFR BUN/Creatinine Ratio Glucose POC Glucose Calcium
[2017-09-24] MEDS: NYSTATIN PO SCH ×4 (11:44→22:27)
[2017-09-24] MEDS: DIFLUCAN 200 MG/100 ML BAG IV SCH (11:45)
[2017-09-24] MEDS: COREG PO SCH (11:46)
[2017-09-24] MEDS ORDERED: ZOFRAN IV PRN (12:44)
--- NOTE | 2017-09-24 14:44 | Progress Note ---
Assessment and Plan Assessment and plan: Patient is a 52-year-old man without chronic medical problems who presented to [facility] ED with shortness of breath, right chest pains. The [facility] days prior to arrival after treated for bilateral pneumonia. [facility] physicians [facility]. Patient was recently discharged from a 6 day hospital stay at the [facility]. Septic shock due to underlying pneumonia, shock resolved/vasopressors off E. coli septicemia: unknown source ? Pneumonia ? UTI (UCx negative) ? GI -Blood cultures 09/01 positive 4 of 4 bottles. E coli sens to cefepime/zosyn -Repeat Blood cultures 09/04 negative. -TTE 09/02 no vegetations. Orophyrangeal Dysphagia - Dysphonia resolved - ENT consult PENDING - Failed swallow eval. -Request GI consult for PEG PLACEMENT Oral Thrush -Fluconazole iv x 3 days will discontinue Acute hypoxemic respiratory failure intubated 09/01/17, on MV >96 hours, extubated on 09/16/17 Hyperkalemia, elevated Anemia of chronic disease - Gi evaluated him- plan for peg this or monday Hypernatremia multiple liver masses suspicious for metastatic disease - GI consulted and said it is likely hemangioma Portal vein thrombosis? not clearly seen on US, will need dedicated study when clinically more stable HIV- ID following Acute Metabolic Encephalopathy, poa -possible underlying Delirium -Restraints re-applied for patient safety -Discharge to SNF following PEG PLACEMENT Disability -PT/OT eval and treat DVT GI prophylaxis with Lovenox and Pepcid AWAITING CALL BACK FROM [place], FOR INSURANCE REQUESTED TRANSFER. CALLED THE TRANSFER LINE [phone] [place] [facility] AND SPOKE WITH ZO, SHE INFORMS ME CASE MANAGEMENT IS WORKING ON IT. INFORMED PATIENT AND FAMILY 09/24/17: I called [facility], transfer line, spoke with Nena @ [phone], no history of transfer requested per Nena. Process hasn't been started per Nena and Zo didn't leave a note. Zo not available today but there tomorrow. We will need to speak with [facility] [phone], office [phone] History Interval history: Patient was seen and examined. Follow-up on current diagnosis of nausea vomiting history of present. Overnight uneventful. Patient denies severe headaches. Imaging, nursing note, chart, labs and old chart reviewed. Discussed with patient. Hospitalist Physical - Physical exam Narrative exam: GEN: Ill appearing, severely malnourished BMI 15 HEENT: NCAT, EOMI, PERRL, OP NGT place NECK: supple, no adenopathy, no thyromegaly, no JVD CVS/HEART: RRR, NORMAL S1S2, pulses present bilaterally CHEST/LUNGS: symmetrical chest expansion, good air entry bilaterally GI/Abdomen: soft, NTND, good bowel sounds, no guarding or rebound /Bladder: no suprapubic tenderness, no CVA or paraspinal tenderness EXT/Skin: no c/c/e, no obvious rash MSK: FROM x 4 Neuro: CN 2-12 grossly intact, no new focal deficits Psych: calm - Constitutional Vitals: Temp Pulse Resp BP Pulse Ox 98.8 F 89 16 80/53 100 09/24/17 08:20 09/24/17 08:20 09/24/17 08:20 09/24/17 08:20 09/24/17 10:00 General appearance: Present: no acute distress, well-nourished, other (intubated ) Results - Labs CBC & Chem 7: 09/24/17 09:27 09/24/17 06:06 Labs: Laboratory Last Values WBC 11.7 K/mm3 (4.5-11.0) H 09/24/17 09:27 RBC 3.65 M/mm3 (3.65-5.03) 09/24/17 09:27 Hgb 10.3 gm/dl (11.8-15.2) L 09/24/17 09:27 Hct 31.3 % (35.5-45.6) L 09/24/17 09:27 MCV 86 fl (84-94) 09/24/17 09:27 MCH 28 pg (28-32) 09/24/17 09:27 MCHC 33 % (32-34) 09/24/17 09:27 RDW 18.1 % (13.2-15.2) H 09/24/17 09:27 Plt Count 178 K/mm3 (140-440) 09/24/17 09:27 Lymph % (Auto) 12.9 % (13.4-35.0) L 09/16/17 06:51 Dale % (Auto) 9.6 % (0.0-7.3) H 09/16/17 06:51 Eos % (Auto) 1.6 % (0.0-4.3) 09/16/17 06:51 Baso % (Auto) 0.2 % (0.0-1.8) 09/16/17 06:51 Lymph # 1.0 K/mm3 (1.2-5.4) L 09/16/17 06:51 Dale # 0.8 K/mm3 (0.0-0.8) 09/16/17 06:51 Eos # 0.1 K/mm3 (0.0-0.4) 09/16/17 06:51 Baso # 0.0 K/mm3 (0.0-0.1) 09/16/17 06:51 Add Manual Diff Complete 09/11/17 06:00 Total Counted 100 09/11/17 06:00 Seg Neutrophils % 75.7 % (40.0-70.0) H 09/16/17 06:51 Seg Neuts % (Manual) 99.0 % (40.0-70.0) H 09/11/17 06:00 Band Neutrophils % 0 % 09/11/17 06:00 Lymphocytes % (Manual) 0 % (13.4-35.0) L 09/11/17 06:00 Reactive Lymphs % (Man) 0 % 09/11/17 06:00 Monocytes % (Manual) 1.0 % (0.0-7.3) 09/11/17 06:00 Eosinophils % (Manual) 0 % (0.0-4.3) 09/11/17 06:00 Basophils % (Manual) 0 % (0.0-1.8) 09/11/17 06:00 Metamyelocytes % 0 % 09/11/17 06:00 Myelocytes % 0 % 09/11/17 06:00 Promyelocytes % 0 % 09/11/17 06:00 Blast Cells % 0 % 09/11/17 06:00 Nucleated RBC % Not Reportable 09/11/17 06:00 Seg Neutrophils # 6.2 K/mm3 (1.8-7.7) 09/16/17 06:51 Seg Neutrophils # Man 15.7 K/mm3 (1.8-7.7) H 09/11/17 06:00 Band Neutrophils # 0.0 K/mm3 09/11/17 06:00 Abs Lymphs (Manual) 1470 cells/uL (850-3900) 09/05/17 14:30 Lymphocytes # (Manual) 0.0 K/mm3 (1.2-5.4) L 09/11/17 06:00 Abs React Lymphs (Man) 0.0 K/mm3 09/11/17 06:00 Monocytes # (Manual) 0.2 K/mm3 (0.0-0.8) 09/11/17 06:00 Eosinophils # (Manual) 0.0 K/mm3 (0.0-0.4) 09/11/17 06:00 Basophils # (Manual) 0.0 K/mm3 (0.0-0.1) 09/11/17 06:00 Metamyelocytes # 0.0 K/mm3 09/11/17 06:00 Myelocytes # 0.0 K/mm3 09/11/17 06:00 Promyelocytes # 0.0 K/mm3 09/11/17 06:00 Blast Cells # 0.0 K/mm3 09/11/17 06:00 WBC Morphology Not Reportable 09/11/17 06:00 Hypersegmented Neuts Not Reportable 09/11/17 06:00 Hyposegmented Neuts Not Reportable 09/11/17 06:00 Hypogranular Neuts Not Reportable 09/11/17 06:00 Smudge Cells Not Reportable 09/11/17 06:00 Toxic Granulation Not Reportable 09/11/17 06:00 Toxic Vacuolation Not Reportable 09/11/17 06:00 Dohle Bodies Not Reportable 09/11/17 06:00 Pelger-Huet Anomaly Not Reportable 09/11/17 06:00 Efren Rods Not Reportable 09/11/17 06:00 Platelet Estimate Cons 09/11/17 06:00 Clumped Platelets Not Reportable 09/11/17 06:00 Plt Clumps, EDTA Not Reportable 09/11/17 06:00 Large Platelets Few 09/11/17 06:00 Giant Platelets Not Reportable 09/11/17 06:00 Platelet Satelliting Not Reportable 09/11/17 06:00 Plt Morphology Comment Not Reportable 09/11/17 06:00 RBC Morphology Not Reportable 09/11/17 06:00 Dimorphic RBCs Not Reportable 09/11/17 06:00 Polychromasia Not Reportable 09/11/17 06:00 Hypochromasia Not Reportable 09/11/17 06:00 Poikilocytosis Not Reportable 09/11/17 06:00 Anisocytosis 1+ 09/11/17 06:00 Microcytosis Not Reportable 09/11/17 06:00 Macrocytosis Not Reportable 09/11/17 06:00 Spherocytes Not Reportable 09/11/17 06:00 Pappenheimer Bodies Not Reportable 09/11/17 06:00 Sickle Cells Not Reportable 09/11/17 06:00 Target Cells Not Reportable 09/11/17 06:00 Tear Drop Cells Not Reportable 09/11/17 06:00 Ovalocytes Not Reportable 09/11/17 06:00 Helmet Cells Not Reportable 09/11/17 06:00 [place] Bodies Not Reportable 09/11/17 06:00 [place] Rings Not Reportable 09/11/17 06:00 [place] Cells Not Reportable 09/11/17 06:00 Bite Cells Not Reportable 09/11/17 06:00 Crenated Cell Not Reportable 09/11/17 06:00 Elliptocytes Not Reportable 09/11/17 06:00 Acanthocytes (Spur) Not Reportable 09/11/17 06:00 Rouleaux Not Reportable 09/11/17 06:00 Hemoglobin C Crystals Not Reportable 09/11/17 06:00 Schistocytes Not Reportable 09/11/17 06:00 Malaria parasites Not Reportable 09/11/17 06:00 Scott Bodies Not Reportable 09/11/17 06:00 Hem Pathologist Commnt No 09/11/17 06:00 PT 14.7 Sec. (12.2-14.9) 09/12/17 10:29 INR 1.09 (0.87-1.13) 09/12/17 10:29 APTT 26.2 Sec. (24.2-36.6) 09/12/17 10:29 Fibrinogen 611 mg/dl (211-480) H 09/04/17 17:23 D-Dimer 976.43 ng/mlDDU (0-234) H 09/01/17 23:27 POC ABG pH 7.415 (7.35-7.45) 09/14/17 06:14 POC ABG pCO2 52.0 (35-45) H 09/14/17 06:14 POC ABG pO2 85 (80-105) 09/14/17 06:14 POC ABG HCO3 33.3 09/14/17 06:14 POC ABG Total CO2 35 09/14/17 06:14 POC ABG O2 Sat 96 09/14/17 06:14 POC ABG Base Excess 9 09/14/17 06:14 FiO2 30 % 09/14/17 06:14 Sodium 142 mmol/L (137-145) 09/24/17 06:06 Potassium 5.2 mmol/L (3.6-5.0) H D 09/24/17 06:06 Chloride 109.2 mmol/L (98-107) H 09/24/17 06:06 Carbon Dioxide 23 mmol/L (22-30) 09/24/17 06:06 Anion Gap 15 mmol/L 09/24/17 06:06 BUN 29 mg/dL (9-20) H 09/24/17 06:06 Creatinine 0.9 mg/dL (0.8-1.5) 09/24/17 06:06 Estimated GFR > 60 ml/min 09/24/17 06:06 BUN/Creatinine Ratio 32 % 09/24/17 06:06 Glucose 86 mg/dL (75-100) 09/24/17 06:06 POC Glucose 113 (70-105) H 09/24/17 06:33 Lactic Acid 2.90 mmol/L (0.7-2.0) H* 09/06/17 08:03 Calcium 9.4 mg/dL (8.4-10.2) 09/24/17 06:06 Phosphorus 2.50 mg/dL (2.5-4.5) 09/13/17 09:24 Magnesium 2.00 mg/dL (1.7-2.3) 09/13/17 09:24 Total Bilirubin 0.50 mg/dL (0.1-1.2) 09/15/17 09:50 AST 79 units/L (5-40) H 09/15/17 09:50 ALT 134 units/L (7-56) H 09/15/17 09:50 Alkaline Phosphatase 83 units/L (35-129) 09/15/17 09:50 Lactate Dehydrogenase 571 units/L (91-180) H 09/05/17 10:55 Troponin T < 0.010 ng/mL (0.00-0.029) 09/01/17 23:27 C-Reactive Protein 1.60 mg/dL (0.00-1.30) H 09/12/17 21:44 NT-Pro-B Natriuret Pep 4222 pg/mL (0-900) H 09/15/17 09:50 Total Protein 7.4 g/dL (6.3-8.2) 09/15/17 09:50 Albumin 2.1 g/dL (3.9-5) L 09/15/17 09:50 Albumin/Globulin Ratio 0.4 % 09/15/17 09:50 Lipase 12 units/L (13-60) L 09/04/17 17:23 Total Cortisol 14.0 mcg/dL () 09/17/17 10:25 Vancomycin Trough 22.0 ug/mL (5.0-20.0) H 09/14/17 12:00 Lymph Enumerat CD4/CD8 0.10 (0.86-5.00) L 09/05/17 14:30 % CD3 Cells 75 % (57-85) 09/05/17 14:30 Absolute CD3 Count 1105 cells/uL (840-3060) 09/05/17 14:30 % CD4 Cells 7 % (30-61) L 09/05/17 14:30 Absolute CD4 Count 101 cells/uL (490-1740) L 09/05/17 14:30 % CD8 Cells 66 % (12-42) H 09/05/17 14:30 Absolute CD8 Count 986 cells/uL (180-1170) 09/05/17 14:30 % CD19 Cells 4 % (6-29) L 09/05/17 14:30 Absolute CD19 Count 60 cells/uL (110-660) L 09/05/17 14:30 HLA-B*5701 See scanned result 09/05/17 14:30 RPR Nonreactive (Nonreactive) 09/07/17 04:13 Hepatitis A IgM Ab Non-reactive (NonReactive) 09/05/17 10:55 Hep Bs Antigen Reactive (Negative) 09/05/17 10:55 Hep Bs Antibody, Quant <5 mIU/mL (>=10) L 09/07/17 04:13 Hep B Core Total Ab Reactive (Nonreactive) H 09/07/17 04:13 Hep B Core IgM Ab Non-reactive (NonReactive) 09/05/17 10:55 Hepatitis Be Antibody Nonreactive 09/07/17 04:13 Hepatitis Be Antigen Reactive H 09/07/17 04:13 Hepatitis C Antibody Non-reactive (NonReactive) 09/05/17 10:55 HIV-1 Antibody See scanned result 09/03/17 07:40 HIV-1 RNA PCR copies/ml 1750 Copies/mL H 09/05/17 14:30 HIV-1 RNA (PCR) log 3.24 Log cps/mL H 09/05/17 14:30 HIV-1 Genotyping see below 09/05/17 14:30 HIV-2 Ab (Immunoblot) See scanned result 09/03/17 07:40 HIV 1&2 Antibody Rapid Reactive (Non React) 09/02/17 19:34 HIV P24 Antigen Non react (Non React) 09/02/17 19:34 Urine Legionella Ag Not detected (Not Detected) 09/02/17 13:55 TB (QFT) Gold In Tube Negative (Negative) 09/05/17 14:30 TB Test (QFT) Nil 0.04 IU/mL 09/05/17 14:30 TB Test Mitogen - Nil 2.28 IU/mL 09/05/17 14:30 TB Test Antigen - Nil 0.00 IU/mL 09/05/17 14:30 Miscellaneous Test Flexitest 1 09/06/17 11:30 Result Reviewed By See scanned result 09/05/17 14:30
[2017-09-24] MEDS ORDERED: NACL 0.9% 1000 ML 1,000 ML IV SCH (17:00)
[2017-09-25 05:56] LABS: Hematocrit 30.4 % (35.5-45.6); Mean Corpuscular HGB Conc 33 % (32-34); Mean Corpuscular Hemoglobin 28 pg (28-32); Mean Corpuscular Volume 86 fl (84-94); Platelet Count 130 K/mm3 (140-440); Red Blood Count 3.53 M/mm3 (3.65-5.03); Red Cell Distribution Width 18.1 % (13.2-15.2)
[2017-09-25 06:01] LABS: INR 1.03 (0.87-1.13); Partial Thromboplastin Time 25.8 Sec. (24.2-36.6)
[2017-09-25 06:08] LABS: BUN/Creatinine Ratio 27; Blood Urea Nitrogen 24 mg/dL (9-20); Calcium 9.3 mg/dL (8.4-10.2); Hemolysis Index 5
[2017-09-25] MEDS: D5W 1,000 ML IV SCH (06:19)
[2017-09-25 06:43] LABS: Basophils % (Manual) 0 % (0.0-1.8); Eosinophils % (Manual) 0 % (0.0-4.3); Platelet Estimate Consistent w Auto; Total Cells Counted 100
[2017-09-25] MEDS: HumaLOG SUB-Q SCH ×3 (07:43→12:00)
[2017-09-25] MEDS: DIFLUCAN 200 MG/100 ML BAG IV SCH (10:16)
[2017-09-25] MEDS ORDERED: ANCEF/STERILE WATER 2 GM/20 ML 2 GM/20 ML SYRINGE IV NR (13:00)
--- NOTE | 2017-09-25 13:45 | Discharge Summary ---
Providers - Providers Date of Admission: 09/02/17 06:26 Date of discharge: 09/25/17 Attending physician: DANILO KENNEY 09/02/17 05:01 Consult to Dietitian/Nutrition [CONS] Routine Physician Instructions: Reason For Exam: Reason for Consult: Evaluate nutritional intake 09/02/17 13:17 Consult to Physician [CONS] Routine Consulting Provider: SIXTO ALLEN Reason For Exam: Sepsis with shock Place consult to:: Dino Notified:: Yes Was contact made?: No Comment:: Saw in ED prior to transfer to CCU 09/05/17 13:49 Consult to Dietitian/Nutrition [CONS] Routine Physician Instructions: Reason For Exam: Reason for Consult: Write/Manage Tube Feeding 09/14/17 18:18 Consult to Physician [CONS] Routine Consulting Provider: DRISS CONNER Reason For Exam: multiple liver lesions, transamnitis Place consult to:: [facility] Notified:: yes If yes, spoke with:: answering service/Piyush Time called:: 16:27 09/17/17 14:35 Speech Therapy Evaluation and Treat [CONS] Routine Reason For Exam: Difficulty of swallowing and speaking 09/18/17 09:57 Consult to Case Management [CONS] Stat Services Needed at Discharge: Other 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 Osborn Notified:: Ramya RN Phone number called:: Was contact made?: Yes If yes, spoke with:: Jerica-answering service Time called:: 11:31 09/21/17 14:58 Consult to Dietitian/Nutrition [CONS] Routine Physician Instructions: Assess nutrtn needs, initiate, modify, manage TF Reason For Exam: Reason for Consult: Write/Manage Tube Feeding Reason for Consult: Write/Manage Tube Feeding 09/22/17 11:30 Consult to Physician [CONS] Routine Consulting Provider: STEVEN SZYMANSKI Reason For Exam: peg tube placement Place consult to:: GI Notified:: OFFICE Phone number called:: [phone] Was contact made?: Yes If yes, spoke with:: GIULIA Time called:: 12:04 Primary care physician: [employer]ID [employer] COMPOUNDER Hospitalization Condition: Fair Hospital course: Patient is a 52-year-old man who presented to [facility] ED with shortness of breath and right sided chest pains. The patient was just discharged from the [facility] a few days prior to arrival after treated for bilateral pneumonia. His physicians are through the [facility]. Patient was recently discharged from a 6 day hospital stay at the [facility]. Septic shock due to underlying Aspiration pneumonia, poa, shock resolved/ vasopressors off E. coli septicemia: unknown source ? Pneumonia ? UTI (UCx negative) ? GI, - Blood cultures 09/01 positive 4 of 4 bottles. E coli sens to cefepime/zosyn, - Repeat Blood cultures 09/04 negative. TTE 09/02 no vegetations. Orophyrangeal Dysphagia - Dysphonia resolved, most likely due to Oral/ Esophageal Candidiasis Oral Thrush-Fluconazole Acute hypoxemic respiratory failure intubated 09/01/17, on MV >96 hours, extubated on 09/16/17 Hyperkalemia, resolved Anemia of chronic disease- Gi evaluated him- plan for peg this or monday Hypernatremia, resolved Multiple liver masses suspicious for metastatic disease: - GI consulted and said it is likely hemangioma Portal vein thrombosis, GI evaluated HIV/AIDS- ID following Acute Metabolic Encephalopathy, poa Severe malnutrition, poa, BMI 15.2 09/23/17: per Dr. Ko: "AWAITING CALL BACK FROM [place], FOR INSURANCE REQUESTED TRANSFER. CALLED THE TRANSFER LINE [phone] [facility] AND SPOKE WITH ZO, SHE INFORMS ME CASE MANAGEMENT IS WORKING ON IT. INFORMED PATIENT AND FAMILY" 09/24/17: I called [facility], transfer line, spoke with Nena @ , no history of transfer requested per Nena. Process hasn't been started per Nena and Zo didn't leave a note. Zo not available today but there tomorrow. We will need to speak with [facility] [phone], office [phone] 09/25/17: Patient did better with speech evaluation, so PEG tube placement was cancelled, ENT consult cancelled, MBS pending. His insurance per-certification is in and He will be going to Acute Rehab at [facility], they can manage and wean him off the [place] if necessary. D/W sister Bryanna at bedside. passed MBS, start Pureed, diet, remove ngt/dobhuff Disposition: DC/[place]-03 SNF W [facility] CERT Time spent for discharge: 35 minutes Core Measure Documentation - Palliative Care Palliative Care/ Comfort Measures: Not Applicable - Core Measures Any of the following diagnoses?: none - VTE Discharge Requirements Deep Vein Thrombosis/Pulmonary Embolism Present on Admission: No Has pt received <5 days of overlap therapy or INR<2.0: No Anticoagulant overlap therapy prescribed at discharge: No Contraindication No Overlap Therapy order at DC: Not Indicated Exam - Physical Exam Narrative exam: GEN: Ill appearing, severely malnourished BMI 15 HEENT: NCAT, EOMI, PERRL, OP NGT place NECK: supple, no adenopathy, no thyromegaly, no JVD CVS/HEART: RRR, NORMAL S1S2, pulses present bilaterally CHEST/LUNGS: symmetrical chest expansion, good air entry bilaterally GI/Abdomen: soft, NTND, good bowel sounds, no guarding or rebound /Bladder: no suprapubic tenderness, no CVA or paraspinal tenderness EXT/Skin: no c/c/e, no obvious rash MSK: FROM x 4 Neuro: CN 2-12 grossly intact, no new focal deficits Psych: calm - Constitutional Vitals: Temp Pulse Resp BP Pulse Ox 98.3 F 82 18 88/58 99 09/25/17 08:28 09/25/17 06:04 09/25/17 08:28 09/25/17 08:28 09/25/17 06:04 Plan Activity: up only with assistance, fall precautions, other (no strenous activity until cleared by pcp) Diet: per dietitian instruction Follow up with: PRIMARY CARE, [Primary Care Provider] - 3-5 Days Prescriptions: clonazePAM [KlonoPIN] 1 mg PO BID #60 tablet Nystatin [Nystatin SUSP] 100,000 unit PO QID #7 day
[2017-09-25 13:56] VITALS: BP 90/61
--- NOTE | 2017-09-25 14:33 | Fluoroscopy Report ---
MODIFIED BARIUM SWALLOW History: dysphagia. Findings: Video radiography was provided by the radiologist for speech therapy to assess the swallowing mechanism. One fluoroscopic image was captured. Impression: Successful modified barium swallow.
--- NOTE | 2017-09-25 15:34 | Event Note ---
Date: 09/25/17 Pt passed Mod Barium swallow. Discussed with pt's sister and with pt, and with Dr. Magana. PEG cancelled. Adv diet as per Speech. Will sign off.
[2017-09-25] MEDS: NYSTATIN PO SCH ×2 (16:01→16:08)
[2017-09-25] MEDS: LASIX IV SCH (16:05)
[2017-09-25] MEDS: BACTRIM DS PO SCH (16:09)
== END 2017-09-25 19:10 | DRG 974 ==
LOC: ED 17:21 → CC1 09-02 06:26 → 4A 09-18 12:47
PROVIDERS: ADMIT Internal Medicine Geriatric Medicine; ATTEND Internal Medicine
PROC: 4A033R1 Measurement of Arterial Saturation, Peripheral, Percutaneous Approach (ICD-10-PCS; 2017-09-02)
PROC: 5A1955Z Respiratory Ventilation, Greater than 96 Consecutive Hours (ICD-10-PCS; 2017-09-02)
PROC: 0BH17EZ Insertion of Endotracheal Airway into Trachea, Via Natural or Artificial Opening (ICD-10-PCS; 2017-09-02)
PROC: 02HV33Z Insertion of Infusion Device into Superior Vena Cava, Percutaneous Approach (ICD-10-PCS; 2017-09-02)
PROC: 0DH67UZ Insertion of Feeding Device into Stomach, Via Natural or Artificial Opening (ICD-10-PCS; principal; 2017-09-14)
DX: A41.51 Sepsis due to Escherichia coli [E. coli] (principal); J96.01 Acute respiratory failure with hypoxia; B20 Human immunodeficiency virus [HIV] disease; R65.21 Severe sepsis with septic shock; G93.41 Metabolic encephalopathy; J15.9 Unspecified bacterial pneumonia; E87.2 Acidosis; E87.1 Hypo-osmolality and hyponatremia; I42.0 Dilated cardiomyopathy; I82.439 Acute embolism and thrombosis of unspecified popliteal vein; E87.0 Hyperosmolality and hypernatremia; D64.9 Anemia, unspecified; R65.20 Severe sepsis without septic shock; D63.1 Anemia in chronic kidney disease; E87.5 Hyperkalemia; D69.6 Thrombocytopenia, unspecified; R13.12 Dysphagia, oropharyngeal phase
CPT/HCPCS: 36415; 36600; 71045; 71046; 71260; 71275; 74018; 74177; 74230; 76700; 80048; 80053; 80074; 80202; 81381; 82024; 82140; 82164; 82533; 82803; 82947; 82962; 83615; 83690; 83735; 83880; 84100; 84295; 84484; 85007; 85025; 85027; 85379; 85384; 85610; 85730; 86140; 86403; 86592; 86689; 86705; 86707; 87040; 87070; 87076; 87086; 87103; 87186; 87205; 87350; 87449; 87517; 87536; 87806; 87901; 88112; 88312; 93005; 93010; 93306; 94002; 94003; 94640; 94760; 96365; 96366; 96367; 96368; 96375; J0456; J0692; J1265; J1450; J1650; J1815; J1885; J1940; J1956; J2060; J2185; J2250; J2370; J2405; J2543; J2920; J3010; J3370; J3475; J3480; J7030; J7040; J7042; J7050; J7070; Q9967